=== PATIENT | female | born 1965 | race Caucasian/White ===

== ENCOUNTER → 2017-12-28 10:16 | Outpatient (CLI) | payer MEDICARE, MEDICAID, SELFPAY ==
[2017-12-28 11:48] LABS: Hemoglobin A1c 8.9 % (4.2-6.3)
[2017-12-28 11:52] LABS: AST(SGOT) 19 U/L (15-37); Alanine Aminotransfer ALT/SGPT 21 U/L (13-56); Albumin, Serum 3.7 g/dL (3.2-5.0); Alkaline Phosphatase 73 U/L (45-117); Bilirubin, Direct 0.13 mg/dL (0.00-0.30); Cholesterol 205 mg/dL (200); Globulin 3.8 g/dL (2.2-4.2); High Density Lipoprotein 48 mg/dL; Protein, Total 7.5 g/dL (6.4-8.2); Triglycerides 233 mg/dL; Very Low Density Lipoprotein 47 mg/dL (5-40)
== END ==
PROVIDERS: Family Provider Family Medicine; PCP Family Medicine; Visit Provider Family Medicine
DX: E78.5 Hyperlipidemia, unspecified (principal); E11.65 Type 2 diabetes mellitus with hyperglycemia
CPT/HCPCS: 36415; 80061; 80076; 83036

== ENCOUNTER 2018-02-24 10:00 | Emergency (ER) | payer MEDICARE, MEDICAID, SELFPAY ==
[2018-02-24 10:01] VITALS: BP 200/130; PULSE 90; RESP 16; TEMP 35.9; O2SAT 99; BMI 36.1
--- NOTE | 2018-02-24 10:26 | CT_ITS ---
STUDY: CT BRAIN WITHOUT CONTRAST REASON FOR EXAM: Female, 53 years old. MINER/HTN TODAY, NKI RADIATION DOSAGE (If Supplied By Facility): CTDIvol = ( 44.99 ) mGy, DLP = ( 745.49 ) mGycm TECHNIQUE: Transaxial CT imaging of the brain was performed without administration of intravenous contrast material. Individualized dose optimization techniques were used for this CT. COMPARISON: None. FINDINGS: Normal soft tissue structures. Normal calvarium. Normal size ventricles and extra-axial spaces for the patient's age. Normal white matter tracts of the cerebral hemispheres. Normal basal ganglia and thalami. Normal brainstem. Normal cerebellum. There is no intracranial hemorrhage. There are no findings of an acute ischemic infarction. Normal visualized paranasal sinuses. CT/Brain/Head without Contrast IMPRESSION: Normal unenhanced CT scan of the brain. Electronically Signed: Mari Stephenson MD at 11:55 EDT Tel , Service support ,
--- NOTE | 2018-02-24 10:26 | EKG12_ITS ---
Test Reason : HTN Blood Pressure : / mmHG Vent. Rate : 080 BPM Atrial Rate : 080 BPM P-R Int : 150 ms QRS Dur : 072 ms QT Int : 338 ms P-R-T Axes : 048 021 -74 degrees QTc Int : 389 ms Normal sinus rhythm T wave abnormality, consider inferolateral ischemia Abnormal ECG Confirmed by LEOANRD MARIA, SENG ([id number]), web editor STEVE JIMÉNEZ ([id number] on 02/26/2018 3:33:46 PM Referred By: ROSALIA Confirmed By:SENG VALLE MD
[2018-02-24 11:07] VITALS: BP 163/137; PULSE 84; RESP 16; O2SAT 98
[2018-02-24] MEDS: Acetaminophen 500 MG Tablet 1000 MG PO (11:13)
[2018-02-24 11:14] LABS: Absolute Lymphocyte Count 2.06 X10^3/ul (0.83-4.51); Absolute Neutrophil Count 4.1 X10^3/uL (2.0-7.7); Basophil# 0.02 X10^3/uL; Basophil% 0.3 % (0-1); Eosinophil# 0.12 X10^3/uL; Eosinophils% 1.8 % (0-5); Lymphocyte # 2.06 X10^3/ul (4.0); Lymphocyte % 30.9 % (19-41); Mean Corp Hgb Conc 33.3 g/gl (32-36); Mean Corpuscular Hgb 27.8 pg (27.0-32.0); Mean Corpuscular Volume 83.5 fL (81-99); Mean Platelet Vol. 9.5 fl (6.2-12.0); Monocyte# 0.35 X10^3/uL; Monocyte% 5.2 % (0-10); Neutrophil # 4.11 X10^3/uL (2.7-7.7); Neutrophil % 61.7 % (47-70); POSITIVE COUNT NO; POSITIVE DIFFERENTIAL NO; POSITIVE MORPHOLOGY NO; Platelet Count 179 K/mm3 (150-450); RBC Distribution Width CV 13.6 % (11.6-14.6); RBC Distribution Width SD 41.6 fl (35.1-43.9); Red Blood Count 5.03 M/mm3 (4.2-5.4); White Blood Count 6.7 K/mm3 (4.4-11.0)
[2018-02-24 11:17] LABS: Bacteria 0 SEEN /hpf (None Seen); Mucous, Urine 0 SEEN /hpf (<or=2+); Red Blood Cells-Urine 0 SEEN /hpf (0-5)
[2018-02-24 11:18] LABS: Color, Urine Yellow (Yellow); Glucose, Dipstick 1000 mg/dl (Normal); Ketone-Dipstick 5 mg/dl (Negative); Leukocyte Esterase-Dipstick 500 /ul (Negative); Nitrite-Dipstick Negative (Negative); Occult Blood-Urine 50 /ul (Negative); Protein-Dipstick 100 mg/dl (Negative); Specific Gravity, Urine 1.025 (1.002-1.030); Urine Bilirubin Dipstick Negative (Negative); Urine Clarity Sl. Cloudy (Clear); Urine Urobilinogen Normal (Normal)
[2018-02-24 11:23] LABS: Squamous Epithelial Cells - UA 10-25 SEEN /hpf (5-10)
[2018-02-24 11:23] LABS: Anion Gap 6 (5-15); BUN 16 mg/dL (7-18); BUN/Creat Ratio 17.5 RATIO (10-20); Calcium,Total 9.4 mg/dL (8.5-10.1); Chloride 102 mmol/L (98-107); Creatinine, Serum 0.91 mg/dL (0.55-1.02); EST Glomerular Filtration Rate 69 mL/min (>60); Est Glom Filt Rate - Afr Amer 83 mL/min (>60); Estimated Creatinine Clearance 52.53 ml/min; Glucose 265 mg/dL (74-106); Sodium Level 137 mmol/L (136-145)
[2018-02-24 11:24] LABS: White Blood Cells 10-25 SEEN /hpf (0-5)
--- NOTE | 2018-02-24 11:31 | NURSING ---
NO LW OR POA
--- NOTE | 2018-02-24 12:11 | NURSING ---
CALLED DR GANN'S OFFICE FOR MED LIST. HAD TO LEAVE A MESSAGE
[2018-02-24 12:21] VITALS: BP 185/102; PULSE 79; RESP 14; O2SAT 99
[2018-02-24] MEDS: Labetalol 100 MG/20 ML Vial 20 MG IV (12:25)
--- NOTE | 2018-02-24 12:56 | ED.DCSUM_ITS ---
- ER Visit Summary Date of Service: 02/24/18 Chief Complaint: High blood pressure and headache History of Present Illness: The patient is a [address] Wahl. She reports that typically her blood pressure is 130/80. States that today she took her typical doses of atenolol 100 mg, Norvasc 10 mg, lisinopril 20 mg, and Aldactone 25 mg. She went to the eye center and was found high had high blood pressure there. She was sent to the emergency department for evaluation. Patient reports that she has a headache that began this morning. Is gradually gotten worse. Is 6 out of 10 severity. A throbbing pain is increased with light and decreased with aspirin. She denies any numbness, tingling, or weakness. No change in her vision. Physical Examination: Vitals: Stable. Afebrile. General: Well-nourished and well-developed. Head: Normocephalic atraumatic. Neck: Supple, no lymphadenopathy. No JVD. Nontender. Cardiovascular: Regular rate and rhythm. No murmurs. Respiratory: No respiratory distress. Clear to auscultation bilaterally. Abdominal: Soft, nontender, nondistended, normal bowel sounds. No guarding, rebound, or peritoneal signs. Back: Nontender. Extremities: Nontender, no edema. Skin: Normal color, no rash. Neurologic: Alert and oriented ?3. Cranial nerves II through XII are intact. Normal strength and sensation. Psych: Normal affect. Test Results: CT brain is normal. EKG is sinus at 80 with T-wave inversions in leads V3 to V6. This is a change. However, her last EKG was in 2001. CBC is normal. Chem-7 is more for glucose 265. Urine has 10-25 whites, but also has 10-25 epithelial cells. It is positive for protein. Emergency Department Course and Treatment: Patient's initial blood pressure was 200/130. Repeat blood pressure is 204/113. She was given 20 mg of labetalol IV and her blood pressure is coming down into the 150s with that. Treatment Plan: Patient was discussed with Dr. Wahl. He asked that we increase her lisinopril from 20 mg to 30 mg a day. She was given extra 10 mg here. Instructed to follow-up with him in 1 week for another exam. Return to the emergency department for any worsening symptoms. Disposition: To home in improved and stable condition. Impression: 1. Hypertension. 2. Cephalgia. This note was generated with [employer] dictation software. It may contain incorrect words, spelling, and punctuation that were not noted in review of the chart prior to signing ED Disposition - Plan for ED Patient: Disposition: Home or Assisted Living Chief Complaint: Hypertension Instructions: ED Hypertension Conf Out Of Control Prescriptions: Lisinopril [Zestril] 30 mg PO DAILY #30 tablet Referrals: Jax Wahl MD [Primary Care Provider] - 1 Week
[2018-02-24 13:00] VITALS: BP 151/89; PULSE 78; RESP 14; O2SAT 97
[2018-02-24] MEDS: Ibuprofen 600 MG Tablet PO (13:32)
[2018-02-24] MEDS: Lisinopril 10 MG Tablet PO (13:32)
[2018-02-24 13:49] VITALS: BP 151/59; PULSE 78; RESP 18; O2SAT 96
== END 2018-02-24 13:49 | disposition home or self-care (01) ==
PROVIDERS: Emergency Provider Emergency Medicine; Family Provider Family Medicine; PCP Family Medicine
DX: I10 Essential (primary) hypertension (principal); R51 Headache; E11.9 Type 2 diabetes mellitus without complications; Z90.710 Acquired absence of both cervix and uterus; Z79.84 Long term (current) use of oral hypoglycemic drugs; Z79.4 Long term (current) use of insulin; Z79.899 Other long term (current) drug therapy
CPT/HCPCS: 70450; 80048; 81001; 85025; 93005; 96374; 99285; A4216

== ENCOUNTER → 2018-06-24 09:30 | Outpatient (CLI) | payer MEDICARE, MEDICAID, SELFPAY ==
[2018-06-24 12:16] LABS: Absolute Lymphocyte Count 2.21 X10^3/ul (0.83-4.51); Absolute Neutrophil Count 4.5 X10^3/uL (2.0-7.7); Basophil# 0.02 X10^3/uL; Basophil% 0.3 % (0-1); Eosinophil# 0.19 X10^3/uL; Eosinophils% 2.5 % (0-5); Hematocrit 42.8 % (37-47); Lymphocyte # 2.21 X10^3/ul (4.0); Lymphocyte % 28.8 % (19-41); Mean Corp Hgb Conc 32.7 g/gl (32-36); Mean Corpuscular Hgb 28.4 pg (27.0-32.0); Mean Corpuscular Volume 86.8 fL (81-99); Mean Platelet Vol. 10.3 fl (6.2-12.0); Monocyte# 0.73 X10^3/uL; Monocyte% 9.5 % (0-10); Neutrophil # 4.52 X10^3/uL (2.7-7.7); Neutrophil % 58.8 % (47-70); Platelet Count 287 K/mm3 (150-450); RBC Distribution Width CV 14.2 % (11.6-14.6); Red Blood Count 4.93 M/mm3 (4.2-5.4); White Blood Count 7.7 K/mm3 (4.4-11.0)
[2018-06-24 12:20] LABS: POSITIVE COUNT NO; POSITIVE DIFFERENTIAL NO; POSITIVE MORPHOLOGY NO
[2018-06-24 12:31] LABS: Color, Urine Yellow (Yellow); Glucose, Dipstick 1000 mg/dl (Normal); Ketone-Dipstick Negative (Negative); Leukocyte Esterase-Dipstick 100 /ul (Negative); Nitrite-Dipstick Negative (Negative); Occult Blood-Urine 10 /ul (Negative); Protein-Dipstick 15 mg/dl (Negative); Urine Bilirubin Dipstick Negative (Negative); Urine Clarity Clear (Clear); Urine Urobilinogen Normal (Normal)
[2018-06-24 12:37] LABS: Hemoglobin A1c 10.2 % (4.2-6.3)
[2018-06-24 12:44] LABS: Microalbumin,Random Urine 48.8 mg/L (NO RANGE EST.); Microalbumin:Creatinine Ratio 36.1 mg/g CRE (<30 mg/g CRE)
[2018-06-24 12:55] LABS: ALB/GLOB Ratio 0.9 RATIO (0.9-2.4); AST(SGOT) 16 U/L (15-37); Alanine Aminotransfer ALT/SGPT 26 U/L (13-56); Albumin, Serum 3.6 g/dL (3.2-5.0); Alkaline Phosphatase 62 U/L (45-117); Anion Gap 12 (5-15); BUN 20 mg/dL (7-18); BUN/Creat Ratio 20.4 RATIO (10-20); Calcium,Total 9.2 mg/dL (8.5-10.1); Chloride 103 mmol/L (98-107); Cholesterol 215 mg/dL (200); Creatinine, Serum 0.98 mg/dL (0.55-1.02); EST Glomerular Filtration Rate 64 mL/min (>60); Est Glom Filt Rate - Afr Amer 77 mL/min (>60); Globulin 3.8 g/dL (2.2-4.2); Glucose 162 mg/dL (74-106); High Density Lipoprotein 43 mg/dL; Protein, Total 7.4 g/dL (6.4-8.2); Sodium Level 141 mmol/L (136-145); Thyroid Stim Hormone (TSH) 0.97 uIU/mL (0.358-3.74); Triglycerides 285 mg/dL; Very Low Density Lipoprotein 57 mg/dL (5-40)
[2018-06-25 09:17] LABS: Vitamin B12 1466 pg/mL (211-911)
== END ==
PROVIDERS: Family Provider Family Medicine; PCP Family Medicine; Visit Provider Family Medicine
DX: Z00.00 Encounter for general adult medical examination without abnormal findings (principal); I10 Essential (primary) hypertension; E78.5 Hyperlipidemia, unspecified; E11.65 Type 2 diabetes mellitus with hyperglycemia; E03.9 Hypothyroidism, unspecified; E53.8 Deficiency of other specified B group vitamins
CPT/HCPCS: 36415; 80053; 80061; 81002; 82043; 82570; 82607; 83036; 84443; 85025

== ENCOUNTER 2018-07-05 10:00 | Outpatient (RCR) | payer MEDICARE, MEDICAID, SELFPAY ==
--- NOTE | 2018-06-07 10:02 | HP.PTEVAL ---
Patient's Visit Information ARCENIO LAND is a 53 year old F referred to Physical Therapy by ALEJANDRA Patel with a diagnosis of Bilateral Shoulder Pain. Date of Evaluation: 06/07/18 Physical Therapist: Talisha Figueredo - Visit Plan Frequency: 2x /Week Duration: 4 Weeks Plan: Focus on ROM and scap s/s for posture - Subjective Subjective: Bilateral shoulder pain for about a month- insidious onset. Tripped over a tree limb about a year ago- and the pain just keeps coming back. Right hand dominate. Both shoulders are the same. Works at [employer] so she is lifting to put thing away and working with her hands a lot. Lifts up to #25 lbs. 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 Pain is located in the shoulder blades- and the pain comes and goes. Best: 0/10 Eases: heat, ice hot patches, medication (Meloxicam). Agg: lifting arms overhead. Worst: 8/10 Pain radiates sometimes to the base of the skull. No N/T in her fingers. Has been having MINER more than normal- sometimes all through the day- the only way to get rid of it is to lay in a dark room- pain is located in the front of the forehead. Does report muscle spams in her back - which are new since the pain has started. No blurred vision or dizziness. Pain is sharp and brings tears to her eyes. Has not had injections- she wanted to do therapy first and see what happened. Last resort for patient is the injection. No images. Patient reports that sleep is disturbed both wakes her and its hard to get comfortable- mostly a side sleeper. Likes to square dance and walk for recreation. PMHx: DM, HTN, high cholesterol. Meds: Meloxicam, Insulin, thyroid, is unsure of the name of the HTN and cholesterol meds. - Objective Posture: poor- FH, RS, Increased kyphosis- very guarded and rigid in both sitting and standing- does not correct given verbal cueing or tactile cueing- reports significant pain and sharp shooting pain with sitting up tall. Gait: decreased trunk rotation and minimal arm swing. Palpation: signicantly tender with tears in her eyes with palpation along paraspinals from occiput to sacrum, medial border of the scapula, upper trap to the tip of the acromion and along the scapula infraspinatus. AROM: Seated: shoulder- flexion- 160 degrees, abduction- 150 degrees, IR: to bra line, ER: 40 degrees all with significant pain. Supine ROM: full in all directions. Elbow/wrist/hand: WNL. Strength: Scap: poor, Shoulder: 4-/5 with pain in all directions, Elbow: 4+/5, wrist/boating safety officer: WNL. Core: poor. Sensation: WNL in UE to light touch. Special Test: Empty can:positive. Impingement: positive - Goals Goal 1:: Patient will be I with HEP and progression Goal Time Frame: 4-6 Weeks Goal 2:: Patient will maintain proper posture t/o tx session to demo increased scap s/s Goal Time Frame: 4-6 Weeks Goal 3:: Patient will demo full AROM of bilateral shoulders to ease ADL's Goal Time Frame: 4-6 Weeks Goal 4:: Patient will report 2/10 pain for 1 week Goal Time Frame: 4-6 Weeks Goal 5:: Patinet will report no loss of sleep for 1 week Goal Time Frame: 4-6 Weeks - Rehabilitation Potential Physical Therapy Diagnosis: Patient presents with hypomobility- she has decreased ROM, strength and muscular endrance leading to poor posture and increased pain with ADL's Rehabilitation Potential: Fair - Anticipated Interventions Patient/Client Instruction: Educate patient on: Benefits of Fitness Program Therapeutic Exercise to Include: Strength training, Endurance training, Coordination, Agility training, Body mechanics, Postural training, Flexibilty training, Passive ROM, Active ROM, Scapular Strength/Stabilization For the Purpose of:: To improve muscle performance and motor function TENS: Yes Cryotherapy (ice pack, ice massage): Yes Thermo therapy (hot pack): Yes Ultrasound (thermal/non thermal): Yes Thank you for the opportunity to evaluate your patient. For Medicare and Medicare HMO plans, please review the plan of care and approve it. It will need to be FAXED BACK to us at [phone] for Medicare purposes. Please let me know if there are questions or concerns regarding this plan of care. Physician Signature: Date:
--- NOTE | 2018-07-05 10:23 | HP.PTDCSUM ---
HP - PT D/C Summary It has been my pleasure to treat ARCENIO LAND under orders from ALEJANDRA Patel, for the diagnosis of Bilateral Shoulder Pain for a total of 8 visit(s). Discharge Date: Please see the following information for a summary of their discharge status. - Subjective Subjective: Patient reports that she is doing pretty good since her massage. Every now and then she gets muscle spasms. 2/10 in the shoulder- comes and goes- sitting causes the spasms. Sleep is not disturbed. No limitations at work. Has another massage scheduled this month. - Pain Left Shoulder Pain Intensity (Out of 10): 4 - Overall Improvement % Improvement: 99 - Objective Objective/Function: Posture: rounded shoulders AROM: shoulder WNL. Cervical: flex., rotation bilat., lat. flex. WFL, limited ext. Strength: shoulder WNL. Neers: (+) slight pn. Bhakti Vargas (-). Palpation: not tender. - Goals Goal 1:: Patient will be I with HEP and progression Goal Progress: Goal Met Goal 2:: Patient will maintain proper posture t/o tx session to demo increased scap s/s Goal Progress: Progressing Goal 3:: Patient will demo full AROM of bilateral shoulders to ease ADL's Goal Progress: Goal Met Goal 4:: Patient will report 2/10 pain for 1 week Goal Progress: Goal Met Goal 5:: Patinet will report no loss of sleep for 1 week Goal Progress: Goal Met - Plan Plan: Discharge to [facility]. - D/C Information If there are questions or concerns regarding this patient's physical therapy, please feel free to call me at [phone]. Thank you for the referral of this patient. Sincerely, Talisha Figueredo
== END 2018-07-05 13:31 | disposition home or self-care (01) ==
LOC: PT 10:00
PROVIDERS: Family Provider Family Medicine; PCP Family Medicine; Visit Provider Physician Assistant
DX: Z00.00 Encounter for general adult medical examination without abnormal findings (principal); M25.512 Pain in left shoulder; M25.511 Pain in right shoulder; S46.812D Strain of other muscles, fascia and tendons at shoulder and upper arm level, left arm, subsequent encounter; I10 Essential (primary) hypertension; E78.5 Hyperlipidemia, unspecified; E11.65 Type 2 diabetes mellitus with hyperglycemia; E03.9 Hypothyroidism, unspecified; E53.8 Deficiency of other specified B group vitamins
CPT/HCPCS: 36415; 80053; 80061; 81002; 82043; 82570; 82607; 83036; 84443; 85025; 97110; 97162; 97164

== ENCOUNTER → 2018-08-23 08:57 | Outpatient (CLI) | payer MEDICARE, MEDICAID, SELFPAY ==
--- NOTE | 2018-08-23 09:35 | RAD_ITS ---
STUDY: X-RAY - THORACIC SPINE REASON FOR EXAM: Female, 53 years old. Back pain left shoulder pain after fall 2 years ago TECHNIQUE: 4 view(s) of the thoracic spine were obtained. COMPARISON: None. FINDINGS: Normal kyphosis of the thoracic spine. There is no substantial scoliosis. There is very minimal endplate spondylosis. There are multilevel degenerative disc narrowing. There is no evidence of acute fracture or loss of vertebral axial height. The soft tissue structures are unremarkable. RAD/Thoracic Spine 3 Views IMPRESSION: Degenerative changes of the thoracic spine without acute fracture or subluxation. Electronically Signed: Mike Patel DO at 21:15 EDT Tel [phone], Service support ,
[2018-08-23 09:54] LABS: Hemoglobin A1c 8.8 % (4.2-6.3)
[2018-08-23 09:58] LABS: Microalbumin,Random Urine 51.2 mg/L (NO RANGE EST.)
[2018-08-23 10:04] LABS: Cholesterol 202 mg/dL (200); High Density Lipoprotein 47 mg/dL; Triglycerides 247 mg/dL; Very Low Density Lipoprotein 49 mg/dL (5-40)
== END ==
PROVIDERS: Family Provider Family Medicine; PCP Family Medicine; Referring Provider Family Medicine; Visit Provider Family Medicine
DX: M54.6 Pain in thoracic spine (principal); G89.29 Other chronic pain; E11.649 Type 2 diabetes mellitus with hypoglycemia without coma
CPT/HCPCS: 36415; 72072; 80061; 82043; 82570; 83036

== ENCOUNTER → 2018-08-27 10:01 | Outpatient (CLI) | payer MEDICARE, MEDICAID, SELFPAY ==
--- NOTE | 2018-08-27 10:07 | BI_ITS ---
MAMMOGRAPHY - BILATERAL SCREENING REASON FOR EXAM: Female, 53 years old. Routine annual screening examination. PERTINENT HISTORY: Aunts with breast cancer. TECHNIQUE: Digital bilateral breast evangelina (3D mammographic acquisition) in the CC and MLO projections. 2-D mediolateral oblique (MLO) and craniocaudad (CC) views of both breasts were obtained. CAD: Full Field Digital Mammography with Computer Added Detection was performed. COMPARISON: Comparison is made with prior examination dated July 03, 2017 and June 20, 2016. FINDINGS: Breast Composition: There are scattered areas of fibroglandular density. There are no dominant masses or suspicious calcifications. No other significant abnormalities are identified. There has been no significant change since the prior study. BI/SCREENING MAMM (CAD), BILAT IMPRESSION: Stable bilateral screening mammogram. Yearly follow-up mammogram recommended. (A) ASSESSMENT CATEGORY: BIRADS Category 1: Negative. A letter regarding these results will be sent to the patient by the facility within 30 days. Approximately 10% of breast cancers are not detected by mammography. A normal mammogram should not delay biopsy of a clinically suspicious abnormality. [id number] Electronically Signed: Chidi White MD at 13:30 EDT Tel [phone], Service support ,
== END ==
PROVIDERS: Family Provider Family Medicine; PCP Family Medicine; Referring Provider Family Medicine; Visit Provider Family Medicine
DX: Z12.31 Encounter for screening mammogram for malignant neoplasm of breast (principal)
CPT/HCPCS: 77063; 77067

== ENCOUNTER 2018-08-30 19:33 | Emergency (ER) | payer MEDICARE, MEDICAID, SELFPAY ==
[2018-08-30 19:34] VITALS: BP 187/110; PULSE 114; RESP 24; TEMP 36.1; BMI 35.2
--- NOTE | 2018-08-30 19:47 | RAD_ITS ---
STUDY: X-RAY - LEFT KNEE REASON FOR EXAM: Female, 53 years old. Posttraumatic pain TECHNIQUE: 3 view(s) of the knee. COMPARISON: None. FINDINGS: Normal visualized distal femur. Normal visualized proximal tibia and fibula. Normal proximal tibiofibular articulation. Mildly narrowed medial femorotibial compartment. Normal lateral femorotibial compartment. Normal patellofemoral articulation. The soft tissue structures are unremarkable. RAD/Knee 3 Views IMPRESSION: Degenerative change. No evidence for acute fracture. Electronically Signed: Augustine Francis MD at 20:49 EST , Service support ,
--- NOTE | 2018-08-30 19:47 | RAD_ITS ---
STUDY: X-RAY - LEFT HAND REASON FOR EXAM: Female, 53 years old. Posttraumatic pain TECHNIQUE: 3 view(s) of the hand. COMPARISON: None. FINDINGS: Normal radiocarpal articulation. Normal distal radioulnar joint. Normal visualized carpal bones. Normal carpal articulations Normal carpometacarpal articulation of the thumb. Normal second through fifth carpometacarpal joints. Normal metacarpi. Normal metacarpophalangeal joint of the thumb. Normal interphalangeal joint of the thumb. Normal proximal and distal phalanges of the thumb. Normal metacarpophalangeal joints of the second through fifth fingers. Normal proximal and distal interphalangeal joints of the second through fifth fingers. Normal phalanges of the second through fifth fingers. The soft tissue structures are unremarkable. RAD/Hand Min 3 Views IMPRESSION: Normal x-ray examination of the hand. Electronically Signed: Augustine Francis MD at 20:43 EST , Service support ,
--- NOTE | 2018-08-30 21:56 | ED.VISSUMM ---
- ER Visit Summary Date of Service: 08/30/18 Chief Complaint: Left knee and hand injury History of Present Illness: The patient is a 53 F who fell onto a flexed left knee while she was square dancing tonight. She also has pain to her left hand. Patient has history of diabetes and hypertension. Physical Examination: Blood pressure arrival is 187/110 and heart rate 114. Patient sitting upright in bed no acute distress. Head and neck examination reveals no sign of trauma. Heart is regular rate and rhythm. Lungs sounds clear. Abdomen is soft nontender. Lower extremity examination reveals tenderness over the anterior portion of the left knee. There is no edema. Ligaments are tight on testing. She is able to straight leg raise her foot off the bed. She has mild tenderness at the base of the left thumb with normal range of motion. Strong distal pulses are noted throughout. Test Results: Left knee x-ray reveals no acute fracture. Left hand x-ray is normal. Emergency Department Course and Treatment: Patient is given a dose of oxycodone. Tomy wrap was applied to the left knee and patient is given crutches. She may weight-bear as tolerated. Repeat blood pressure is 167/93. Patient is advised to follow-up with her primary care physician and/or orthopedics. Treatment Plan: [] Disposition: Discharge Impression: 1. Mechanical fall 2. Left knee contusion 3. Left hand contusion This note was generated with [employer] dictation software. It may contain incorrect words, spelling, and punctuation that were not noted in review of the chart prior to signing ED Disposition - Plan for ED Patient: Disposition: Home or Assisted Living Chief Complaint: Lower Extremity Injury Instructions: ED Sprain Knee Prescriptions: Oxycodone HCl/Acetaminophen [Percocet 5/325] 1 tablet PO Q6H PRN PRN 3 Days #12 tablet PRN Reason: Pain Referrals: Braulio Mendoza MD [STAFF PHYSICIAN] - 1 Week if not improving Ranjeet Shine MD [Primary Care Provider] -
--- NOTE | 2018-08-30 21:56 | ED.DEP ---
ED Disposition - Plan for ED Patient: Disposition: Home or Assisted Living Chief Complaint: Lower Extremity Injury Instructions: ED Sprain Knee Prescriptions: Oxycodone HCl/Acetaminophen [Percocet 5/325] 1 tablet PO Q6H PRN PRN 3 Days #12 tablet PRN Reason: Pain Referrals: Ranjeet Shine MD [Primary Care Provider] - Braulio Mendoza MD [STAFF PHYSICIAN] - 1 Week if not improving
[2018-08-30] MEDS: oxyCODONE 5 MG Tablet PO (22:08)
[2018-08-30 22:11] VITALS: BP 167/93; PULSE 94; RESP 16; O2SAT 98
== END 2018-08-30 22:18 | disposition home or self-care (01) ==
PROVIDERS: Emergency Provider Emergency Medicine; Family Provider Family Medicine; PCP Family Medicine
DX: S60.222A Contusion of left hand, initial encounter (principal); S80.02XA Contusion of left knee, initial encounter; W19.XXXA Unspecified fall, initial encounter; Y93.41 Activity, dancing; Y92.9 Unspecified place or not applicable; E11.9 Type 2 diabetes mellitus without complications; I10 Essential (primary) hypertension; Z79.84 Long term (current) use of oral hypoglycemic drugs; Z79.4 Long term (current) use of insulin; Z79.899 Other long term (current) drug therapy
CPT/HCPCS: 73130; 73562; 99284

== ENCOUNTER 2018-11-27 18:02 | Emergency (ER) | payer MEDICARE, MEDICAID, SELFPAY ==
[2018-11-27 18:04] VITALS: BP 153/91; PULSE 78; RESP 16; TEMP 36.3; O2SAT 97; BMI 34.0
[2018-11-27 18:36] VITALS: TEMP 36.9
[2018-11-27] MEDS: HYDROcodone Bitartrate/Apap 5/325 Tablet PO (18:58)
[2018-11-27] MEDS: Clindamycin HCl 150 MG Capsule 450 MG PO (18:59)
[2018-11-27] MEDS: Diphth,Pertuss(Acell),Tet Vac 0.5 ML Vial IM (18:59)
--- NOTE | 2018-11-27 20:19 | ED.VISSUMM ---
- ER Visit Summary Date of Service: 11/27/18 Chief Complaint: Right forearm burn/cellulitis History of Present Illness: The patient is a 53 F presenting with redness to right forearm. Patient states she spilled bleach/cleaning solution on her arm yesterday. She initially stated this was at work but then later said that this was after work and was not work related. She irrigated the wound at home. She had blisters which broke on their own. Last tetanus is unknown. Denies other complaints. Physical Examination: Vitals are stable. Patient is afebrile. Alert no acute distress. HEENT exam is unremarkable. Neck is supple. Lungs are clear and equal bilaterally. Heart is regular rate and rhythm. Extremities erythema to the dorsal forearm which is not circumferential. Small blisters. Normal distal pulse. Skin is warm and dry. No focal neurologic deficit. Normal strength and sensation Remainder of exam is unremarkable. Emergency Department Course and Treatment: Wound was irrigated. She was given tetanus IM. She was given Logan x1. She is given clindamycin. Advised to follow-up with primary care physician for wound recheck. Advised return to ED if worsening complaints. Disposition: Discharge home Impression: Right forearm chemical burn/cellulitis This note was generated with [employer] in [place] dictation software. It may contain incorrect words, spelling, and punctuation that were not noted in review of the chart prior to signing ED Disposition - Plan for ED Patient: Instructions: ED Infec Skin Cellulitis Prescriptions: Clindamycin [Cleocin] 300 mg PO 4X/DAY #80 capsule Referrals: [facility] [GROUP OF PHYSICIANS] - Ranjeet Shine MD [Primary Care Provider] -
--- NOTE | 2018-11-27 20:22 | ED.DEP ---
ED Disposition - Plan for ED Patient: Instructions: ED Infec Skin Cellulitis Prescriptions: Clindamycin [Cleocin] 300 mg PO 4X/DAY #80 capsule Referrals: Ranjeet Shine MD [Primary Care Provider] -
== END 2018-11-27 20:29 | disposition home or self-care (01) ==
PROVIDERS: Emergency Provider Emergency Medicine; Family Provider Family Medicine; PCP Family Medicine
DX: T54.91XA Toxic effect of unspecified corrosive substance, accidental (unintentional), initial encounter (principal); T22.611A Corrosion of second degree of right forearm, initial encounter; L03.113 Cellulitis of right upper limb; Y93.9 Activity, unspecified; Y92.9 Unspecified place or not applicable; E11.9 Type 2 diabetes mellitus without complications; I10 Essential (primary) hypertension; E78.00 Pure hypercholesterolemia, unspecified; Z79.84 Long term (current) use of oral hypoglycemic drugs; Z79.4 Long term (current) use of insulin; Z79.899 Other long term (current) drug therapy
CPT/HCPCS: 90715; 99283

== ENCOUNTER 2019-02-17 16:31 | Observation (INO) | payer MEDICARE, MEDICAID, SELFPAY ==
[2019-02-17] VITALS (7 sets, daily range): BP systolic 115–195; BP diastolic 56–101; PULSE 56–66; RESP 11–18; TEMP 36.4–36.6; O2SAT 99–100; BMI 37.8; BMI 36.3; BMI 36.4
--- NOTE | 2019-02-17 16:43 | EKG12_ITS ---
Test Reason : CP Blood Pressure : / mmHG Vent. Rate : 060 BPM Atrial Rate : 060 BPM P-R Int : 144 ms QRS Dur : 066 ms QT Int : 448 ms P-R-T Axes : 048 022 054 degrees QTc Int : 448 ms Normal sinus rhythm Normal ECG Confirmed by CJ MARIA, ROYA ([id number]), digital editor ALEXIS HAWK ([id number]) on 02/21/2019 11:29:23 AM Referred By: Ambreen Gómez Confirmed By:ROYA CORONA MD
--- NOTE | 2019-02-17 16:43 | RAD_ITS ---
STUDY: X-RAY CHEST REASON FOR EXAM: Female, 54 years old. Chest pain x2 days TECHNIQUE: Single AP portable view of the chest. COMPARISON: None. FINDINGS: laboratory monitor leads are present. The lungs are clear and expanded. There is no demonstrated pleural abnormality. Normal size heart. Normal mediastinum and skinny. Normal visualized pulmonary arteries. There are calcified plaques of the aortic arch. There are diffuse degenerative changes of the visualized thoracic spine. Normal visualized ribs, clavicles, and shoulders. There is no demonstrated abnormality of the visualized soft tissue structures of the upper abdomen. RAD/Chest 1 View (Portable) IMPRESSION: Calcified plaques of the aortic arch. No acute cardiopulmonary disease process is seen. Electronically Signed: Mio Bonner MD at 17:04 EDT , Service support ,
--- NOTE | 2019-02-17 16:44 | ED.VISSUMM ---
- ER Visit Summary Date of Service: 02/17/19 Chief Complaint: [] Burning chest pain today 3:00 History of Present Illness: The patient is a 54 F [] history of hypertension diabetes indicates she was at her doctor's office for routine health visit, development of burning chest discomfort she was given some medication she says, then in the ambulance was called, she was given aspirin nitroglycerin she is brought to the emergency department the pain that was about a 7 out of 10, she states the pain is worse when she actually sits forward or moves her torso, she has no headache no numbness weakness paresthesias no abdominal pain, She has no history of AR PE DVT CAD, or GI elements she is eating and drinking well bowel bladder is have been normal her review of systems otherwise negative Physical Examination: [] 140/92 afebrile the remaining vital signs are unremarkable General, no distress resting comfortably HEENT is generally unremarkable The neck is supple no adenopathy Cardiovascular, regular rate and rhythm Lungs, clear bilateral Abdomen, soft nontender Extremities, no clubbing cyanosis or edema Neurologic, awake alert answering questions appropriately moving all 4 extremities Test Results: [] Emergency Department Course and Treatment: [] Given all the above she will be treated with medications IV fluids pain management screening labs EKG shows a sinus rhythm no acute injury pattern appreciated, her screening labs troponin are negative chest x-ray unremarkable see all those reports Is feeling better given her history, that includes diabetes hypertension high cholesterol and the chest pressure she experienced about the hospital see her further management admission Treatment Plan: [] Disposition: [] Pending hospice evaluation Impression: [] Chest pain angina, history of hypertension diabetes high cholesterol This note was generated with [employer] dictation software. It may contain incorrect words, spelling, and punctuation that were not noted in review of the chart prior to signing ED Disposition - Plan for ED Patient: Referrals: Jax Wahl MD [NON-STAFF] -
[2019-02-17] MEDS: 0.9% Normal Saline 1,000 ML 150 ML IV (16:54)
[2019-02-17] MEDS: Mag Hydrox/Al Hydrox/Simeth 30 ML UDC PO (16:54)
[2019-02-17] MEDS: Ondansetron 4 MG/2 ML Vial IV (16:54)
[2019-02-17] MEDS: morphine 8 MG/ML Syringe IV (17:00)
[2019-02-17 17:28] LABS: Absolute Lymphocyte Count 2.96 X10^3/ul (0.83-4.51); Absolute Neutrophil Count 6.7 X10^3/uL (2.0-7.7); Basophil# 0.02 X10^3/uL; Basophil% 0.2 % (0-1); Eosinophil# 0.27 X10^3/uL; Eosinophils% 2.4 % (0-5); Hematocrit 43.1 % (37-47); Hemoglobin 14.3 g/dl (12.0-15.0); Lymphocyte # 2.96 X10^3/ul (4.0); Lymphocyte % 26.8 % (19-41); Mean Corp Hgb Conc 33.2 g/gl (32-36); Mean Corpuscular Hgb 28.1 pg (27.0-32.0); Mean Corpuscular Volume 84.7 fL (81-99); Mean Platelet Vol. 10.1 fl (6.2-12.0); Monocyte# 1.03 X10^3/uL; Monocyte% 9.3 % (0-10); Neutrophil # 6.73 X10^3/uL (2.7-7.7); Neutrophil % 60.8 % (47-70); Platelet Count 338 K/mm3 (150-450); RBC Distribution Width CV 14.5 % (11.6-14.6); RBC Distribution Width SD 43.4 fl (35.1-43.9); Red Blood Count 5.09 M/mm3 (4.2-5.4); White Blood Count 11.1 K/mm3 (4.4-11.0)
[2019-02-17 17:29] LABS: POSITIVE COUNT NO; POSITIVE DIFFERENTIAL NO; POSITIVE MORPHOLOGY NO
[2019-02-17 17:30] LABS: Anion Gap 7 (5-15); BUN 21 mg/dL (7-18); BUN/Creat Ratio 23.3 RATIO (10-20); Chloride 105 mmol/L (98-107); EST Glomerular Filtration Rate 70 mL/min (>60); Est Glom Filt Rate - Afr Amer 85 mL/min (>60); Estimated Creatinine Clearance 52.52 ml/min; Glucose 135 mg/dL (74-106); Potassium 4.3 mmol/L (3.5-5.1); Sodium Level 139 mmol/L (136-145)
[2019-02-17 18:00] LABS: BNP,B-Type NATRIURETIC PEPTIDE 46.6 pg/mL (0-100)
--- NOTE | 2019-02-17 18:37 | PCM.HP.STD ---
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 Diabetes mellitus complication status: with unspecified complications Qualified Code(s): E11.8 - Type 2 diabetes mellitus with unspecified complications; Z79.4 - 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) use of insulin (5) Anxiety and depression Status: Chronic (6) Obesity Status: Chronic Qualifiers: Obesity type: due to excess calories Obesity classification: adult class 2 (BMI 35 - 39.9) (7) Hypothyroidism Status: Chronic Qualifiers: Hypothyroidism type: unspecified Qualified Code(s): E03.9 - Hypothyroidism, unspecified (8) Former tobacco use Status: Chronic History of Present Illness Date of Admission: 02/17/19 Chief Complaint: Chest pain The patient is a 54 y/o F w/ PMHx: Obesity, HTN, HLD, Diabetes mellitus type II, Anxiety and Depression, OA, Hypothyroidism, Former Tobacco use who presents to the [facility] ED on 02/17/19 with history of being at her PCP office for routine evaluation with onset of atypical midsternal chest burning sensation without any radiation with associated diaphoresis at onset without nausea, emesis or dyspnea rated initially 7/10, improved following EMS administration of ASA, NG with transition from PCP office to ED for evaluation. Work-up in the ED included T 97.6, heart rate 56, BP 141/92, respiratory rate 12, 99% on room air, CBC with WBC 11.1, hemoglobin 14.3, platelets 338 without shift, BMP with glucose 135 and BUN 21 with creatinine 0.90 otherwise unremarkable, BNP 46.6, troponin less than 0.015, chest x-ray with calcified plaques of the aortic arch with no acute cardiopulmonary findings otherwise, EKG with SR without acute evidence of ischemia. In the ED patient administered normal saline, Mylanta, aspirin, viscous lidocaine, morphine, multi-ingredient GI drug, Zofran. Past Medical History Past Medical History (Chronic Problems): Chronic Problems HTN (hypertension) (Chronic) HLD (hyperlipidemia) (Chronic) Diabetes mellitus, type II (Chronic) Anxiety and depression (Chronic) Obesity (Chronic) Hypothyroidism (Chronic) Former tobacco use (Chronic) Allergies Penicillins Allergy (Verified 02/17/19 17:01) Rash Sulfa (Sulfonamide Antibiotics) Adverse Reaction (Verified 02/17/19 17:01) Nausea/Vom/Diarrhea Home Medications: Ambulatory Orders Medication Instructions Recorded Atenolol [Tenormin (Beta Aby)] 100 mg PO DAILY 02/24/18 Atorvastatin Calcium [Lipitor] 20 mg PO QHS 02/24/18 Cyanocobalamin [Vitamin B12] 1,000 mcg SC Q30D 02/24/18 Duloxetine Hcl [Cymbalta] 60 mg PO DAILY 02/24/18 Empagliflozin [Jardiance] 10 mg PO DAILY 02/24/18 Estradiol [Estrace] 1 mg PO DAILY 02/24/18 Levothyroxine [Synthroid] 125 mcg PO DAILY 02/24/18 Lisinopril [Zestril] 20 mg PO DAILY 02/24/18 Meloxicam [Mobic] 15 mg PO DAILY 02/24/18 Metformin HCl [Glucophage] 1,000 mg PO BIDCM 02/24/18 Pioglitazone [Actos] 45 mg PO DAILY 02/24/18 Sitagliptin Phosphate [Januvia] 100 mg PO DAILY 02/24/18 Spironolactone [Aldactone] 25 mg PO DAILY 02/24/18 Insulin Glargine [Lantus SoloStar 34 unit SQ DAILY 11/27/18 Pen] Surgical History: - - Hysterectomy, cataract surgery. 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 Tobacco Use: Non-smoker Alcohol: None Drugs: None - *Family History Maternal History Items: - - Patient notes a maternal and paternal family history of hypertension, hyperlipidemia, diabetes. Paternal History Items: - - Patient notes a maternal and paternal family history of hypertension, hyperlipidemia, diabetes. Review of Systems Constitutional: Reports: Malaise, Weakness, Fatigue. Denies: Chills, Fever, Weight Change HEENT: Denies: Head Aches, Sinus Congestion, Sinus Drainage Cardiovascular: Reports: Chest Pain. Denies: Chest Pressure, Chest Tightness, Heaviness, Light Headedness, Orthopnea, Palpitations, Syncope Respiratory: Denies: Cough, Shortness of Breath, Shortness of breath at rest, Shortness of breath upon exertion, Sputum production Gastrointestinal: Denies: Abdominal Pain, Nausea, Vomiting Genitourinary: Denies: Dysuria Musculoskeletal: Denies: Joint Pain, Joint Tenderness Skin: Denies: Rash, Wounds Neurological: Denies: Numbness, Tingling, Focal weakness Psychiatric: Reports: Anxiety, Depression. Denies: Homicidal Ideations, Suicidal Ideations Endocrine: Reports: Heat/ Cold Intolerance Hematologic/ Lymphatic: Denies: Easy Bruising, Easy Bleeding VTE Information - Inpt Only VTE Present on Admission: No VTE Mechan Device Prophylaxis: SCD's VTE Pharm Prophylaxis ordered?: Yes Patient Problems: Active and Suspected Problems Chest pain (Acute) Subjective: Seated upright in the ED bed, notes chest discomfort, burning sensation has been improving since myriad of GI cocktail components. Objective: Physical Examination: General: awake, alert, oriented x 3 and cooperative, seated upright in the ED bed, notes chest discomfort has been improving, currently rating it is 1-2 out of 10. Skin: normal color, turgor, no icterus, cyanosis. HEENT: AT/NC, EOMI, PERRLA, mildly dry MM, no carotid bruits or JVD noted. Lungs: CTA bilaterally, moderate effort, mild decrease BL bases, no rales, ronchi or wheezing. Heart: Regular rate and rhythm; no gallop, rub audible, no market reproducible discomfort with palpation. Abdomen: soft, NTTP, ND, normal BS, no HSM. Extremities: no cyanosis, clubbing, or edema. Neurological: patient awake, alert, oriented x 3; cognitive function intact; pupils equally reactive to light and accomodation; cranial nerves II-XII grossly normal, moving all 4 extremities, no focal deficits, strength mildly to moderately globally decreased secondary to acute presentation. Psychiatric: affect appears flat, no acute evidence of depressive or anxiety feelings. - Physical Exam Vital Signs Temp Pulse Resp BP Pulse Ox 97.6 F L 56 L 11 L 141/92 H 99 02/17/19 16:32 02/17/19 16:32 02/17/19 16:32 02/17/19 16:32 02/17/19 16:32 Oxygen Delivery Method Room Air Weight: 193 lb 9.054 oz Body Mass Index (BMI) 37.8 Laboratory Tests Past 24 Hrs 02/17/19 02/17/19 02/17/19 17:05 17:05 17:05 WBC 11.1 H RBC 5.09 Hgb 14.3 Hct 43.1 MCV 84.7 MCH 28.1 MCHC 33.2 RDW 14.5 RDW Differential 43.4 Plt Count 338 MPV 10.1 Immature Gran % (Auto) 0.500 Neut % (Auto) 60.8 Lymph % (Auto) 26.8 Sac % (Auto) 9.3 Eos % (Auto) 2.4 Baso % (Auto) 0.2 Absolute Neuts (auto) 6.7 Absolute Lymphs (auto) 2.96 Total Counted Not Reportable Sodium 139 Potassium 4.3 Chloride 105 Carbon Dioxide 27.0 Anion Gap 7 BUN 21 H Creatinine 0.90 Estim Creat Clear Calc 52.52 Est GFR (MDRD) Af Amer 85 Est GFR (MDRD) Non-Af 70 BUN/Creatinine Ratio 23.3 H Glucose 135 H Calcium 9.0 Troponin I < 0.015 B-Natriuretic Peptide 46.6 Assessment/Plan All Active Problems Chest pain (Acute) The patient is a 54 y/o F w/ PMHx: Obesity, HTN, HLD, Diabetes mellitus type II, Anxiety and Depression, OA, Hypothyroidism, Former Tobacco use who presents to the [facility] ED on 02/17/19 with history of being at her PCP office for routine evaluation with onset of atypical midsternal chest burning sensation without any radiation with associated diaphoresis at onset without nausea, emesis or dyspnea rated initially 7/10. (1) Atypical Chest Pain: Work-up in the ED included T 97.6, heart rate 56, BP 141/92, respiratory rate 12, 99% on room air, CBC with WBC 11.1, hemoglobin 14.3, platelets 338 without shift, BMP with glucose 135 and BUN 21 with creatinine 0.90 otherwise unremarkable, BNP 46.6, troponin less than 0.015, chest x-ray with calcified plaques of the aortic arch with no acute cardiopulmonary findings otherwise, EKG with SR without acute evidence of ischemia. Will admit to PCU, place on a monitored bed to assure no acute myocardial infarction with serial cardiac enzymes and EKGs. If cardiac enzymes and EKGs remain unremarkable we will proceed with a.m. cardiac nuclear treadmill stress testing. CRP requested given patient positional discomfort changes and if elevated would obtain ECHO. ASA, NG, morphine. FLP in AM. Mag pending. Lipase and liver enzyme requested also as well as UDS. If lipase elevated then would de-escalate cardiac evaluation. (2) Diabetes mellitus type II: Hold oral home regimen, continue home insulin regimen, ADA diet, accu checks w/ ISS, nutrition consulted for education and teaching. (3) Hypertension: Continue home regimen including atenolol, lisinopril, spironolactone, PRN hydralazine. (4) Hyperlipidemia: Continue home statin regimen. AM FLP. (5) Anxiety and depression: Continue home Cymbalta regimen. (6) Hypothyroidism: Continue home synthroid regimen, TSH pending. (7) Obesity: Weight loss and lifestyle changes encouraged, nutrition consulted for education and teaching. (8) Hx Prior Tobacco Abuse: Encouraged continued cessation. (9) GERD: PPI. (10) DVT Prophylaxis: SCDs, lovenox. Code Visit OBSV E&M: 13523 Initial observation care L3
--- NOTE | 2019-02-17 18:45 | HP.PCM_ITS ---
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 Diabetes mellitus complication status: with unspecified complications Qualified Code(s): E11.8 - Type 2 diabetes mellitus with unspecified complications; Z79.4 - long term care administrator (current) use of insulin (5) Anxiety and depression Status: Chronic (6) Obesity Status: Chronic Qualifiers: Obesity type: due to excess calories Obesity classification: adult class 2 (BMI 35 - 39.9) (7) Hypothyroidism Status: Chronic Qualifiers: Hypothyroidism type: unspecified Qualified Code(s): E03.9 - Hypothyroidism, unspecified (8) Former tobacco use Status: Chronic History of Present Illness Date of Admission: 02/17/19 Chief Complaint: Chest pain The patient is a 54 y/o F w/ PMHx: Obesity, HTN, HLD, Diabetes mellitus type II, Anxiety and Depression, OA, Hypothyroidism, Former Tobacco use who presents to the [facility] ED on 02/17/19 with history of being at her PCP office for routine evaluation with onset of atypical midsternal chest burning sensation without any radiation with associated diaphoresis at onset without nausea, emesis or dyspnea rated initially 7/10, improved following EMS administration of ASA, NG with transition from PCP office to ED for evaluation. Work-up in the ED included T 97.6, heart rate 56, BP 141/92, respiratory rate 12, 99% on room air, CBC with WBC 11.1, hemoglobin 14.3, platelets 338 without shift, BMP with glucose 135 and BUN 21 with creatinine 0.90 otherwise unremarkable, BNP 46.6, troponin less than 0.015, chest x-ray with calcified plaques of the aortic arch with no acute cardiopulmonary findings otherwise, EKG with SR without acute evidence of ischemia. In the ED patient administered normal saline, Mylanta, aspirin, viscous lidocaine, morphine, multi-ingredient GI drug, Zofran. Past Medical History Past Medical History (Chronic Problems): Chronic Problems HTN (hypertension) (Chronic) HLD (hyperlipidemia) (Chronic) Diabetes mellitus, type II (Chronic) Anxiety and depression (Chronic) Obesity (Chronic) Hypothyroidism (Chronic) Former tobacco use (Chronic) Allergies Penicillins Allergy (Verified 02/17/19 17:01) Rash Sulfa (Sulfonamide Antibiotics) Adverse Reaction (Verified 02/17/19 17:01) Nausea/Vom/Diarrhea Home Medications: Ambulatory Orders Medication Instructions Recorded Atenolol [Tenormin (Beta Aby)] 100 mg PO DAILY 02/24/18 Atorvastatin Calcium [Lipitor] 20 mg PO QHS 02/24/18 Cyanocobalamin [Vitamin B12] 1,000 mcg SC Q30D 02/24/18 Duloxetine Hcl [Cymbalta] 60 mg PO DAILY 02/24/18 Empagliflozin [Jardiance] 10 mg PO DAILY 02/24/18 Estradiol [Estrace] 1 mg PO DAILY 02/24/18 Levothyroxine [Synthroid] 125 mcg PO DAILY 02/24/18 Lisinopril [Zestril] 20 mg PO DAILY 02/24/18 Meloxicam [Mobic] 15 mg PO DAILY 02/24/18 Metformin HCl [Glucophage] 1,000 mg PO BIDCM 02/24/18 Pioglitazone [Actos] 45 mg PO DAILY 02/24/18 Sitagliptin Phosphate [Januvia] 100 mg PO DAILY 02/24/18 Spironolactone [Aldactone] 25 mg PO DAILY 02/24/18 Insulin Glargine [Lantus SoloStar 34 unit SQ DAILY 11/27/18 Pen] Surgical History: - - Hysterectomy, cataract surgery. 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 Tobacco Use: Non-smoker Alcohol: None Drugs: None - *Family History Maternal History Items: - - Patient notes a maternal and paternal family history of hypertension, hyperlipidemia, diabetes. Paternal History Items: - - Patient notes a maternal and paternal family history of hypertension, hyperlipidemia, diabetes. Review of Systems Constitutional: Reports: Malaise, Weakness, Fatigue. Denies: Chills, Fever, Weight Change HEENT: Denies: Head Aches, Sinus Congestion, Sinus Drainage Cardiovascular: Reports: Chest Pain. Denies: Chest Pressure, Chest Tightness, Heaviness, Light Headedness, Orthopnea, Palpitations, Syncope Respiratory: Denies: Cough, Shortness of Breath, Shortness of breath at rest, Shortness of breath upon exertion, Sputum production Gastrointestinal: Denies: Abdominal Pain, Nausea, Vomiting Genitourinary: Denies: Dysuria Musculoskeletal: Denies: Joint Pain, Joint Tenderness Skin: Denies: Rash, Wounds Neurological: Denies: Numbness, Tingling, Focal weakness Psychiatric: Reports: Anxiety, Depression. Denies: Homicidal Ideations, Suicidal Ideations Endocrine: Reports: Heat/ Cold Intolerance Hematologic/ Lymphatic: Denies: Easy Bruising, Easy Bleeding VTE Information - Inpt Only VTE Present on Admission: No VTE Mechan Device Prophylaxis: SCD's VTE Pharm Prophylaxis ordered?: Yes Patient Problems: Active and Suspected Problems Chest pain (Acute) Subjective: Seated upright in the ED bed, notes chest discomfort, burning sensation has been improving since myriad of GI cocktail components. Objective: Physical Examination: General: awake, alert, oriented x 3 and cooperative, seated upright in the ED bed, notes chest discomfort has been improving, currently rating it is 1-2 out of 10. Skin: normal color, turgor, no icterus, cyanosis. HEENT: AT/NC, EOMI, PERRLA, mildly dry MM, no carotid bruits or JVD noted. Lungs: CTA bilaterally, moderate effort, mild decrease BL bases, no rales, ronchi or wheezing. Heart: Regular rate and rhythm; no gallop, rub audible, no market reproducible discomfort with palpation. Abdomen: soft, NTTP, ND, normal BS, no HSM. Extremities: no cyanosis, clubbing, or edema. Neurological: patient awake, alert, oriented x 3; cognitive function intact; pupils equally reactive to light and accomodation; cranial nerves II-XII grossly normal, moving all 4 extremities, no focal deficits, strength mildly to moderately globally decreased secondary to acute presentation. Psychiatric: affect appears flat, no acute evidence of depressive or anxiety feelings. - Physical Exam Vital Signs Temp Pulse Resp BP Pulse Ox 97.6 F L 56 L 11 L 141/92 H 99 02/17/19 16:32 02/17/19 16:32 02/17/19 16:32 02/17/19 16:32 02/17/19 16:32 Oxygen Delivery Method Room Air Weight: 193 lb 9.054 oz Body Mass Index (BMI) 37.8 Laboratory Tests Past 24 Hrs 02/17/19 02/17/19 02/17/19 17:05 17:05 17:05 WBC 11.1 H RBC 5.09 Hgb 14.3 Hct 43.1 MCV 84.7 MCH 28.1 MCHC 33.2 RDW 14.5 RDW Differential 43.4 Plt Count 338 MPV 10.1 Immature Gran % (Auto) 0.500 Neut % (Auto) 60.8 Lymph % (Auto) 26.8 Mora % (Auto) 9.3 Eos % (Auto) 2.4 Baso % (Auto) 0.2 Absolute Neuts (auto) 6.7 Absolute Lymphs (auto) 2.96 Total Counted Not Reportable Sodium 139 Potassium 4.3 Chloride 105 Carbon Dioxide 27.0 Anion Gap 7 BUN 21 H Creatinine 0.90 Estim Creat Clear Calc 52.52 Est GFR (MDRD) Af Amer 85 Est GFR (MDRD) Non-Af 70 BUN/Creatinine Ratio 23.3 H Glucose 135 H Calcium 9.0 Troponin I < 0.015 B-Natriuretic Peptide 46.6 Assessment/Plan All Active Problems Chest pain (Acute) The patient is a 54 y/o F w/ PMHx: Obesity, HTN, HLD, Diabetes mellitus type II, Anxiety and Depression, OA, Hypothyroidism, Former Tobacco use who presents to the [facility] ED on 02/17/19 with history of being at her PCP office for routine evaluation with onset of atypical midsternal chest burning sensation without any radiation with associated diaphoresis at onset without nausea, emesis or dyspnea rated initially 7/10. (1) Atypical Chest Pain: Work-up in the ED included T 97.6, heart rate 56, BP 141/92, respiratory rate 12, 99% on room air, CBC with WBC 11.1, hemoglobin 14.3, platelets 338 without shift, BMP with glucose 135 and BUN 21 with creatinine 0.90 otherwise unremarkable, BNP 46.6, troponin less than 0.015, chest x-ray with calcified plaques of the aortic arch with no acute cardiopulmonary findings otherwise, EKG with SR without acute evidence of ischemia. Will admit to PCU, place on a monitored bed to assure no acute myocardial infarction with serial cardiac enzymes and EKGs. If cardiac enzymes and EKGs remain unremarkable we will proceed with a.m. cardiac nuclear treadmill stress testing. CRP requested given patient positional discomfort changes and if elevated would obtain ECHO. ASA, NG, morphine. FLP in AM. Mag pending. Lipase and liver enzyme requested also as well as UDS. If lipase elevated then would de-escalate cardiac evaluation. (2) Diabetes mellitus type II: Hold oral home regimen, continue home insulin regimen, ADA diet, accu checks w/ ISS, nutrition consulted for education and teaching. (3) Hypertension: Continue home regimen including atenolol, lisinopril, spironolactone, PRN hydralazine. (4) Hyperlipidemia: Continue home statin regimen. AM FLP. (5) Anxiety and depression: Continue home Cymbalta regimen. (6) Hypothyroidism: Continue home synthroid regimen, TSH pending. (7) Obesity: Weight loss and lifestyle changes encouraged, nutrition consulted for education and teaching. (8) Hx Prior Tobacco Abuse: Encouraged continued cessation. (9) GERD: PPI. (10) DVT Prophylaxis: SCDs, lovenox. Code Visit OBSV E&M: [id number] Initial observation care L3
--- NOTE | 2019-02-17 19:37 | EKG12_ITS ---
Test Reason : AM EKG Blood Pressure : / mmHG Vent. Rate : 064 BPM Atrial Rate : 064 BPM P-R Int : 176 ms QRS Dur : 066 ms QT Int : 438 ms P-R-T Axes : 056 035 056 degrees QTc Int : 451 ms Normal sinus rhythm Low voltage QRS Nonspecific T wave abnormality Abnormal ECG Confirmed by CJ MARIA, ROYA ([id number]), staff editor ALEXIS HAWK ([id number]) on 02/21/2019 12:23:48 PM Referred By: Ambreen Gómez Confirmed By:ROYA CORONA MD
[2019-02-17 19:56] LABS: AST(SGOT) 12 U/L (15-37); Alanine Aminotransfer ALT/SGPT 19 U/L (13-56); Albumin, Serum 3.5 g/dL (3.2-5.0); Alkaline Phosphatase 71 U/L (45-117); CRP, High Sensitivity Cardiac 8.74 mg/L; Lipase 167 U/L (73-393); Magnesium 1.8 mg/dL (1.6-2.6); Protein, Total 7.5 g/dL (6.4-8.2); T4 Free Direct 1.09 ng/dL (0.76-1.46)
[2019-02-17 19:56] LABS: Bedside Glucose 88 mg/dL (70-110)
[2019-02-17] MEDS: Pantoprazole Sodium 20 MG Tablet PO (20:08)
[2019-02-17] MEDS: hydrALAZINE 20 MG/ML Vial 10 MG IV (20:08)
[2019-02-17] MEDS: Atorvastatin Calcium 20 MG Tablet PO (20:08)
[2019-02-17] MEDS: Acetaminophen 325 MG Tablet 650 MG PO (20:08)
[2019-02-17 20:55] LABS: Amphetamine Urine VISTA NEGATIVE (<1000 ng/mL); Barbiturate Urine VISTA NEGATIVE (< 200 ng/mL); Benzodiazepine Urine VISTA NEGATIVE (< 200 ng/mL); Cocaine Urine VISTA NEGATIVE (< 300 ng/mL); Ecstacy Urine VISTA NEGATIVE (< 500 ng/mL); Methadone Urine VISTA NEGATIVE (< 300 ng/mL); PCP Urine VISTA NEGATIVE (< 25 ng/mL); THC Urine VISTA NEGATIVE (< 50 ng/mL); Vista UDS pH Range 6
[2019-02-17] MEDS: 0.9% Normal Saline 1,000 ML 100 ML IV (23:05)
[2019-02-17] MEDS: HYDROcodone Bitartrate/Apap 5/325 Tablet PO (23:13)
[2019-02-18] VITALS (12 sets, daily range): BP systolic 106–132; BP diastolic 55–73; PULSE 53–85; RESP 16–18; TEMP 36.3–36.8; O2SAT 97–100
[2019-02-18] MEDS: Albuterol 2.5 MG/3 ML VIAL.NEB. INHALATION (00:53)
[2019-02-18] MEDS: Acetaminophen 325 MG Tablet 650 MG PO (03:55)
--- NOTE | 2019-02-18 03:55 | NURSING ---
Pt didnt like where the iv was and wanted this nurse to change it. Attempted x2 in hands and Lindsay attempted x1 one and was unsuccessful. Pt then didnt want it changed
[2019-02-18] MEDS: Levothyroxine 125 MCG Tablet PO (05:38)
[2019-02-18] MEDS: Aspirin E.C. 81 MG Tablet PO (05:39)
[2019-02-18 05:51] LABS: Bedside Glucose 83 mg/dL (70-110)
[2019-02-18] MEDS: Lisinopril 20 MG Tablet PO (05:51)
--- NOTE | 2019-02-18 05:55 | EKG12_ITS ---
Test Reason : CP ADMISSION Blood Pressure : / mmHG Vent. Rate : 056 BPM Atrial Rate : 056 BPM P-R Int : 130 ms QRS Dur : 064 ms QT Int : 458 ms P-R-T Axes : 060 015 058 degrees QTc Int : 441 ms Sinus bradycardia Low Voltage QRS (Limb Leads) Confirmed by CJ MARIA, ROYA ([id number]), video tape editor ALEXIS HAWK ([id number]) on 02/21/2019 12:27:07 PM Referred By: Ambreen Gómez Confirmed By:ROYA CORONA MD
[2019-02-18 06:31] LABS: Hematocrit 38.6 % (37-47); Hemoglobin 12.7 g/dl (12.0-15.0); Mean Corp Hgb Conc 32.9 g/gl (32-36); Mean Corpuscular Hgb 28.4 pg (27.0-32.0); Mean Corpuscular Volume 86.4 fL (81-99); Mean Platelet Vol. 9.8 fl (6.2-12.0); Platelet Count 272 K/mm3 (150-450); RBC Distribution Width CV 14.5 % (11.6-14.6); RBC Distribution Width SD 44.2 fl (35.1-43.9); Red Blood Count 4.47 M/mm3 (4.2-5.4); White Blood Count 9.8 K/mm3 (4.4-11.0)
[2019-02-18 06:32] LABS: Scan Indicated on CBC? Y/N NO
[2019-02-18 06:37] LABS: International Normalized Ratio 1.1; Partial Thromboplast Time 30.2 Seconds (24.1-36.2); Prothrombin Time (Protime)PT. 13.6 SECONDS (11.7-14.9)
[2019-02-18 06:52] LABS: ALB/GLOB Ratio 0.9 RATIO (0.9-2.4); AST(SGOT) 10 U/L (15-37); Alanine Aminotransfer ALT/SGPT 18 U/L (13-56); Albumin, Serum 2.9 g/dL (3.2-5.0); Alkaline Phosphatase 59 U/L (45-117); Anion Gap 6 (5-15); BUN 22 mg/dL (7-18); BUN/Creat Ratio 26.7 RATIO (10-20); Calcium,Total 7.8 mg/dL (8.5-10.1); Chloride 110 mmol/L (98-107); Cholesterol 165 mg/dL (200); Creatinine, Serum 0.82 mg/dL (0.55-1.02); EST Glomerular Filtration Rate 77 mL/min (>60); Est Glom Filt Rate - Afr Amer 94 mL/min (>60); Estimated Creatinine Clearance 57.65 ml/min; Globulin 3.2 g/dL (2.2-4.2); Glucose 75 mg/dL (74-106); High Density Lipoprotein 44 mg/dL; Potassium 3.6 mmol/L (3.5-5.1); Protein, Total 6.1 g/dL (6.4-8.2); Sodium Level 142 mmol/L (136-145); Thyroid Stim Hormone (TSH) 0.07 uIU/mL (0.358-3.74); Triglycerides 206 mg/dL; Very Low Density Lipoprotein 41 mg/dL (5-40)
--- NOTE | 2019-02-18 09:22 | ECHOD_ITS ---
Reason For Study: chest pain Procedure This was a 2D Doppler, Color Flow transthoracic echocardiogram. The study was technically difficult. Due to diminshed accoustic windows. PT scanned supine due to LUE IV discomfort, unable to lie in left lateral decubitus position. Exam performed portable in patient room. Left Ventricle Normal LV size. Left ventricular systolic function is normal. The estimated ejection fraction is 65 %. No evidence for diastolic dysfunction. No regional wall motion abnormalities noted. Right Ventricle Normal RV size. Normal systolic function. Atria Normal left atrium. Normal right atrium. No doppler evidence for ASD. Mitral Valve There is no mitral annular calcification. Normal mitral valve. Trivial mitral valve insufficiency. Tricuspid Valve Normal tricuspid valve. Mild tricuspid valve insufficiency. Right ventricular systolic pressure estimated to be 33 mmHg. Aortic Valve Trisinus/trileaflet aortic valve. Normal aortic valve. Pulmonic Valve The pulmonic valve is not well visualized. Great Vessels Normal sized aortic root. Pericardium/Pleural No pericardial effusion. MMode/2D Measurements & Calculations LVIDd: 4.3 cm IVSd: 1.1 cm Ao root diam: 2.8 cm LVIDs: 2.7 cm LVPWd: 1.1 cm RVDd: 2.5 cm FS: 35.5 % LAV(MOD-bp): 58.9 ml EDV(MOD-sp4): 71.9 ml EDV(MOD-sp2): 46.5 ml LAV(MOD-bp) Indexed: 32.5 ml/m2 ESV(MOD-sp4): 23.0 ml EF(MOD-sp2): 55.9 % LAV(MOD-sp2): 54.4 ml EF(MOD-sp4): 68.0 % LAV(MOD-sp4): 61.2 ml SV(MOD-sp4): 48.8 ml SV(MOD-sp2): 26.0 ml LA A4 area: 19.4 cm2 LA dimension(2D): 3.8 cm RA A4 area: 9.4 cm2 Time Measurements MV dec time: 0.19 sec Doppler Measurements & Calculations MV E max jayson: 99.0 cm/sec Lat Peak E' Jayson: 9.0 cm/sec Med Peak E' Jayson: 7.4 cm/sec MV A max jayson: 69.1 cm/sec E/E' lat: 11.0 E/E' med: 13.3 MV E/A: 1.4 Ao V2 max: 127.4 cm/sec LV V1 max: 101.5 cm/sec PA V2 max: 86.7 cm/sec Ao max P.5 mmHg LV V1 max P.1 mmHg TR max jayson: 252.2 cm/sec TR max P.4 mmHg Interpretation Summary The study was technically difficult. Left ventricular systolic function is normal. The estimated ejection fraction is 65 %. Trivial mitral valve insufficiency. Mild tricuspid valve insufficiency. Right ventricular systolic pressure estimated to be 33 mmHg. No evidence for diastolic dysfunction. Ordering Physician: CHASE Joel Referring Physician: Ambreen Gómez Performed By: Veda Hdez, LIAM, RVT
--- NOTE | 2019-02-18 09:51 | STRESSREP ---
Stress Test Report Date: 02-18-19 Procedure: Pharmacologic stress nuclear imaging study Indications: Chest pain Consent: Per the patient Procedure: The patient underwent pharmacologic (Regadenoson) evaluation with a peak heart rate of 89 beats per minute (52 %predicted maximal heart rate) and a peak blood pressure of 128/80 mmHg. The baseline ECG demonstrated normal sinus rhythm. The peak pharmacologic ECG demonstrated no obvious ECG changes. There were no cardiac dysrhythmias pretest, during pharmacologic infusion, or recovery. There was no complaint of chest discomfort during pharmacologic infusion or recovery. The examination was discontinued secondary to completion of protocol. Impression: 1. Pharmacologic (Regadenoson) evaluation 2. Peak pharmacologic ECG with no obvious ECG changes. 3. There were no cardiac dysrhythmias pretest, during pharmacologic infusion, or recovery. 4. Nuclear images pending Myocardial perfusion imaging study: Technique: The patient was injected with 11.8 millicuries of technetium 99m Cardiolite and subsequently rest SPECT Cardiolite nuclear imaging was obtained in the horizontal long, vertical long, and short axis views. The patient underwent pharmacologic (Regadenoson) evaluation with a peak heart rate of 89 beats per minute (52 % percent predicted maximal heart rate) and a peak blood pressure of 128/80 mmHg. The patient was injected with 33.3 millicuries of technetium 99m Cardiolite and subsequently stress SPECT Cardiolite nuclear imaging was obtained in the horizontal long, vertical long, and short axis views. A gated Cardiolite study at peak stress was obtained. Interpretation: Rest and stress SPECT Cardiolite nuclear imaging status post realignment, normalization, and attenuation correction demonstrate relative uniform tracer uptake and myocardial perfusion appearing within normal limits. There is end systolic thickening and brightening. The gated Cardiolite study demonstrates myocardial thickening and inward wall motion. The reported LVEF is 77 %. Impression: 1. Rest and stress SPECT Cardiolite nuclear imaging demonstrate relative uniform tracer uptake and myocardial perfusion appearing within normal limits. 2. The gated Cardiolite study reports an LVEF of 77 %. This note was generated with Digital Lumens software. It may contain incorrect words, spelling, and punctuation that were not noted in checking the note before signing.
[2019-02-18] MEDS: Spironolactone 25 MG Tablet PO (09:54)
[2019-02-18] MEDS: Enoxaparin 40 MG/0.4 ML Syringe SC (09:55)
[2019-02-18] MEDS: Meloxicam 15 MG Tablet PO (09:59)
[2019-02-18] MEDS: Estradiol 1 MG Tablet PO (09:59)
[2019-02-18] MEDS: DULoxetine Hcl 60 MG Capsule PO (10:00)
[2019-02-18] MEDS: Atenolol 100 MG Tablet PO (10:01)
[2019-02-18] MEDS: Pantoprazole Sodium 20 MG Tablet PO (10:03)
[2019-02-18 11:36] LABS: Bedside Glucose 83 mg/dL (70-110)
--- NOTE | 2019-02-18 11:38 | DCINST_ITS ---
- Discharge Diagnoses Current Active Problems: Current Active and Chronic Problems Chest pain (Acute) HTN (hypertension) (Chronic) HLD (hyperlipidemia) (Chronic) Diabetes mellitus, type II (Chronic) Anxiety and depression (Chronic) Obesity (Chronic) Hypothyroidism (Chronic) Former tobacco use (Chronic) You will use the following diet at home:: Calorie/Carbohydrate Controlled (specify 1200, 1400, etc), Cardiac Discharge Activity: Return to Normal Activity Call your doctor if you observe: Shortness of breath, Dizziness, Fainting spells, Chest pain Allergies/Adverse Reactions: Allergies Penicillins Allergy (Verified 02/17/19 17:01) Rash Sulfa (Sulfonamide Antibiotics) Adverse Reaction (Verified 02/17/19 17:01) Nausea/Vom/Diarrhea Medications to take at Discharge Atenolol [Tenormin (beta belkys)] 100 mg PO DAILY 02/24/18 Atorvastatin Calcium [Lipitor] 20 mg PO QHS 02/24/18 Duloxetine Hcl [Cymbalta] 60 mg PO DAILY 02/24/18 Empagliflozin [Jardiance] 10 mg PO DAILY 02/24/18 Estradiol [Estrace] 1 mg PO DAILY 02/24/18 Levothyroxine [Synthroid] 125 mcg PO DAILY 02/24/18 Lisinopril [Zestril] 20 mg PO DAILY 02/24/18 Meloxicam [Mobic] 15 mg PO DAILY 02/24/18 Metformin HCl [Glucophage] 1,000 mg PO BIDCM 02/24/18 Pioglitazone [Actos] 45 mg PO DAILY 02/24/18 Sitagliptin Phosphate [Januvia] 100 mg PO DAILY 02/24/18 Spironolactone [Aldactone] 25 mg PO DAILY 02/24/18 Insulin Glargine [Lantus SoloStar Pen] 34 unit SQ DAILY 11/27/18 Aspirin [Aspirin, Baby] 81 mg PO BID 02/17/19 Primary Care Physician: Jax Wahl MD [NON-STAFF] - Please follow up with your Primary Care Physician in: 1 Week Test Results: Test results from this visit will be discussed in further detail at your follow- up appointment, if applicable. Proposed Discharge Date: 02/18/19
--- NOTE | 2019-02-18 13:32 | PHA.DC.MR ---
Pharmacy Service has performed discharge medication reconciliation for this patient. No new medications were added to medication list at time of discharged. Reviewed home medication list. The patient's discharge medication list was reviewed for discrepancies and discrepancies were resolved. Home Medications Atenolol [Tenormin (beta belkys)] 100 mg PO DAILY 02/24/18 Atorvastatin Calcium [Lipitor] 20 mg PO QHS 02/24/18 Duloxetine Hcl [Cymbalta] 60 mg PO DAILY 02/24/18 Empagliflozin [Jardiance] 10 mg PO DAILY 02/24/18 Estradiol [Estrace] 1 mg PO DAILY 02/24/18 Levothyroxine [Synthroid] 125 mcg PO DAILY 02/24/18 Lisinopril [Zestril] 20 mg PO DAILY 02/24/18 Meloxicam [Mobic] 15 mg PO DAILY 02/24/18 Metformin HCl [Glucophage] 1,000 mg PO BIDCM 02/24/18 Pioglitazone [Actos] 45 mg PO DAILY 02/24/18 Sitagliptin Phosphate [Januvia] 100 mg PO DAILY 02/24/18 Spironolactone [Aldactone] 25 mg PO DAILY 02/24/18 Insulin Glargine [Lantus SoloStar Pen] 34 unit SQ DAILY 11/27/18 Aspirin [Aspirin, Baby] 81 mg PO BID 02/17/19
--- NOTE | 2019-02-18 13:59 | PCM.DC.SUM ---
Discharge Date and Diagnosis Date of Admission: 02/17/19 Date of Discharge: 02/18/19 - Primary Discharge Diagnosis Active and Suspected Problems 1. Musculoskeletal chest pain 2. Type 2 diabetes mellitus 3. Hypertension 4. Hyperlipidemia 5. Anxiety and depression 6. Hypothyroidism 7. Obesity 8. GERD 9. History of prior tobacco use - Secondary Discharge Diagnosis Chronic Problems HTN (hypertension) (Chronic) HLD (hyperlipidemia) (Chronic) Diabetes mellitus, type II (Chronic) Anxiety and depression (Chronic) Obesity (Chronic) Hypothyroidism (Chronic) Former tobacco use (Chronic) Hospital Course and Treatment Imaging Results: Diagnostic Data Chest X-Ray 02/17/19 16:43 IMPRESSION: Calcified plaques of the aortic arch. No acute cardiopulmonary disease process is seen. Electronically Signed: Mio Bonner MD at 17:04 EDT , Service support , Operations: None Procedures: 2-D Echocardiogram, Stress test Summary of Care Provided: The patient is a 54 year old F admitted 02/17/2019 due to chest pain. 1. Musculoskeletal chest pain-ACS ruled out. Troponin negative. EKG without ST-T changes. Patient underwent nuclear stress test which was negative for ischemia. CRP 8.74. Echocardiogram showed an EF of 65%, no evidence of diastolic dysfunction, RVSP estimated to be 33 mmHg. Pain is reproducible with palpation to chest. Patient has had recent upper respiratory virus with cough. She reports chest pain is worse with coughing. Suspect pain is musculoskeletal in nature versus GERD given report of burning sensation as well. Added on PPI. Follow-up with primary care physician 1 week. 2. Type 2 diabetes mellitus-continue home oral regimen. 3. Hypertension-stable, continue home atenolol, lisinopril, spironolactone regimen. 4. Hyperlipidemia-continue statin. 5. Anxiety and depression-continue home Cymbalta regimen. 6. Hypothyroidism-continue home Synthroid regimen. TSH low, T4 normal. 7. Obesity-encourage diet and lifestyle modification. 8. GERD-initiated on Protonix. 9. History of prior tobacco use Patient seen and examined prior to discharge. Physical assessment as noted below. Patient is stable for discharge with follow up recommendations as noted above. This patient was seen by CHASE Joel under the supervision of Dr. Garcia. - Physical Exam General: Alert, Oriented x3, Cooperative HEENT: Atraumatic, PERRLA, EOMI, Normocephalic Neck: Supple, No JVD, Negative Carotid Bruits Lungs: Clear to auscultation, Normal air movement Cardiovascular: Regular rate, Regular Rhythm, Normal S1, Normal S2, No murmurs Abdomen: Bowel Sounds Present, Soft, Non Tender, Non-Distended Extremities: No clubbing, No cyanosis, No edema, Capillary Refill Less than 3 Seconds Skin: No rashes, No breakdown Musculoskeletal: No Tenderness to Palpation of Joints or Extremities Neurological: Cranial nerves II-XII grossly intact, Neuro grossly intact Psych/Mental Status: Normal Affect, Appropriate Vital Signs Temp Pulse Resp BP Pulse Ox 97.9 F 63 16 128/63 H 97 02/18/19 11:30 02/18/19 12:32 02/18/19 11:30 02/18/19 11:30 02/18/19 11:30 Oxygen Delivery Method Room Air Weight: 186 lb 6.413 oz Body Mass Index (BMI) 36.3 Intake and Output for Last 24 Hours 02/16/19 02/17/19 02/18/19 23:59 23:59 23:59 Intake Total 440 / 440 989 / 989 Output Total 700 / 700 Balance 440 / 440 289 / 289 Laboratory Tests Past 24 Hrs 02/17/19 02/17/19 02/17/19 17:05 17:05 17:05 WBC 11.1 H RBC 5.09 Hgb 14.3 Hct 43.1 MCV 84.7 MCH 28.1 MCHC 33.2 RDW 14.5 RDW Differential 43.4 Plt Count 338 MPV 10.1 Immature Gran % (Auto) 0.500 Neut % (Auto) 60.8 Lymph % (Auto) 26.8 [place] % (Auto) 9.3 Eos % (Auto) 2.4 Baso % (Auto) 0.2 Absolute Neuts (auto) 6.7 Absolute Lymphs (auto) 2.96 Total Counted Not Reportable PT INR APTT Sodium 139 Potassium 4.3 Chloride 105 Carbon Dioxide 27.0 Anion Gap 7 BUN 21 H Creatinine 0.90 Estim Creat Clear Calc 52.52 Est GFR (MDRD) Af Amer 85 Est GFR (MDRD) Non-Af 70 BUN/Creatinine Ratio 23.3 H Glucose 135 H Calcium 9.0 Magnesium Total Bilirubin Direct Bilirubin AST ALT Alkaline Phosphatase Troponin I < 0.015 C-React Prot High Sens B-Natriuretic Peptide 46.6 Total Protein Albumin Globulin Albumin/Globulin Ratio Triglycerides Cholesterol LDL Cholesterol VLDL Cholesterol HDL Cholesterol Lipase TSH Free T4 Urine Opiates Screen Urine Methadone Screen Ur Barbiturates Screen Ur Phencyclidine Scrn Ur Amphetamines Screen U Methamphetamin-MDMA U Benzodiazepines Scrn Urine Cocaine Screen U Cannabinoids Screen Ur Drug Screen Comment 02/17/19 02/17/19 02/17/19 17:05 20:30 20:58 WBC RBC Hgb Hct MCV MCH MCHC RDW RDW Differential Plt Count MPV Immature Gran % (Auto) Neut % (Auto) Lymph % (Auto) [place] % (Auto) Eos % (Auto) Baso % (Auto) Absolute Neuts (auto) Absolute Lymphs (auto) Total Counted PT INR APTT Sodium Potassium Chloride Carbon Dioxide Anion Gap BUN Creatinine Estim Creat Clear Calc Est GFR (MDRD) Af Amer Est GFR (MDRD) Non-Af BUN/Creatinine Ratio Glucose Calcium Magnesium 1.8 Total Bilirubin 0.40 Direct Bilirubin 0.10 AST 12 L ALT 19 Alkaline Phosphatase 71 Troponin I < 0.015 C-React Prot High Sens 8.74 H B-Natriuretic Peptide Total Protein 7.5 Albumin 3.5 Globulin 4.0 Albumin/Globulin Ratio Triglycerides Cholesterol LDL Cholesterol VLDL Cholesterol HDL Cholesterol Lipase 167 TSH Free T4 1.09 Urine Opiates Screen POSITIVE H Urine Methadone Screen NEGATIVE Ur Barbiturates Screen NEGATIVE Ur Phencyclidine Scrn NEGATIVE Ur Amphetamines Screen NEGATIVE U Methamphetamin-MDMA NEGATIVE U Benzodiazepines Scrn NEGATIVE Urine Cocaine Screen NEGATIVE U Cannabinoids Screen NEGATIVE Ur Drug Screen Comment 02/17/19 02/18/19 02/18/19 23:33 06:05 06:05 WBC 9.8 RBC 4.47 Hgb 12.7 Hct 38.6 MCV 86.4 MCH 28.4 MCHC 32.9 RDW 14.5 RDW Differential 44.2 H Plt Count 272 MPV 9.8 Immature Gran % (Auto) Neut % (Auto) Lymph % (Auto) [place] % (Auto) Eos % (Auto) Baso % (Auto) Absolute Neuts (auto) Absolute Lymphs (auto) Total Counted PT INR APTT Sodium 142 Potassium 3.6 Chloride 110 H Carbon Dioxide 26.0 Anion Gap 6 BUN 22 H Creatinine 0.82 Estim Creat Clear Calc 57.65 Est GFR (MDRD) Af Amer 94 Est GFR (MDRD) Non-Af 77 BUN/Creatinine Ratio 26.7 H Glucose 75 Calcium 7.8 L Magnesium Total Bilirubin 0.50 Direct Bilirubin AST 10 L ALT 18 Alkaline Phosphatase 59 Troponin I < 0.015 C-React Prot High Sens B-Natriuretic Peptide Total Protein 6.1 L Albumin 2.9 L Globulin 3.2 Albumin/Globulin Ratio 0.9 Triglycerides 206 H Cholesterol 165 LDL Cholesterol 80 VLDL Cholesterol 41 H HDL Cholesterol 44 Lipase TSH 0.07 L Free T4 Urine Opiates Screen Urine Methadone Screen Ur Barbiturates Screen Ur Phencyclidine Scrn Ur Amphetamines Screen U Methamphetamin-MDMA U Benzodiazepines Scrn Urine Cocaine Screen U Cannabinoids Screen Ur Drug Screen Comment 02/18/19 06:05 WBC RBC Hgb Hct MCV MCH MCHC RDW RDW Differential Plt Count MPV Immature Gran % (Auto) Neut % (Auto) Lymph % (Auto) [place] % (Auto) Eos % (Auto) Baso % (Auto) Absolute Neuts (auto) Absolute Lymphs (auto) Total Counted PT 13.6 INR 1.1 APTT 30.2 Sodium Potassium Chloride Carbon Dioxide Anion Gap BUN Creatinine Estim Creat Clear Calc Est GFR (MDRD) Af Amer Est GFR (MDRD) Non-Af BUN/Creatinine Ratio Glucose Calcium Magnesium Total Bilirubin Direct Bilirubin AST ALT Alkaline Phosphatase Troponin I C-React Prot High Sens B-Natriuretic Peptide Total Protein Albumin Globulin Albumin/Globulin Ratio Triglycerides Cholesterol LDL Cholesterol VLDL Cholesterol HDL Cholesterol Lipase TSH Free T4 Urine Opiates Screen Urine Methadone Screen Ur Barbiturates Screen Ur Phencyclidine Scrn Ur Amphetamines Screen U Methamphetamin-MDMA U Benzodiazepines Scrn Urine Cocaine Screen U Cannabinoids Screen Ur Drug Screen Comment POC Glucose 02/18/19 02/18/19 02/17/19 11:29 05:47 19:50 POC Glucose 83 83 88 Discharge Diet: Low fat/ Low Cholesterol, Carb Control Diet Discharge Activity: Return to Normal Activity Call your doctor if you observe: Shortness of breath, Dizziness, Fainting spells, Chest pain Home Medications: Medications to take at Discharge Atenolol [Tenormin (beta belkys)] 100 mg PO DAILY 02/24/18 Atorvastatin Calcium [Lipitor] 20 mg PO QHS 02/24/18 Duloxetine Hcl [Cymbalta] 60 mg PO DAILY 02/24/18 Empagliflozin [Jardiance] 10 mg PO DAILY 02/24/18 Estradiol [Estrace] 1 mg PO DAILY 02/24/18 Levothyroxine [Synthroid] 125 mcg PO DAILY 02/24/18 Lisinopril [Zestril] 20 mg PO DAILY 02/24/18 Meloxicam [Mobic] 15 mg PO DAILY 02/24/18 Metformin HCl [Glucophage] 1,000 mg PO BIDCM 02/24/18 Pioglitazone [Actos] 45 mg PO DAILY 02/24/18 Sitagliptin Phosphate [Januvia] 100 mg PO DAILY 02/24/18 Spironolactone [Aldactone] 25 mg PO DAILY 02/24/18 Insulin Glargine [Lantus SoloStar Pen] 34 unit SQ DAILY 11/27/18 Aspirin [Aspirin, Baby] 81 mg PO BID 02/17/19 Pantoprazole Sodium [Protonix] 40 mg PO DAILY #30 tablet 02/18/19 Following Prescrptions Were Given to Patient: Pantoprazole Sodium [Protonix] 40 mg PO DAILY #30 tablet Primary Care Physician: Jax Wahl MD [NON-STAFF] - Please follow up with your Primary Care Physician in: 1 Week Disposition: Home Minutes spent on discharge:: 35 Patient Condition:: Stable Medical Necessity - Tobacco Use Smoking Status: Former smoker Tobacco Use: Non-smoker Meaningful Use Info Meaningful Use Diagnoses (Choose all that apply): None applicable
--- NOTE | 2019-02-18 15:54 | CHAPLAIN ---
patient was sleeping at time of attempted visit
[2019-02-18 16:30] LABS: Bedside Glucose 124 mg/dL (70-110)
== END 2019-02-18 11:38 | disposition home or self-care (01) ==
LOC: ED 17:56 → PCU 19:05
PROVIDERS: Admitting Provider Family Medicine; Emergency Provider Emergency Medicine; Family Provider Family Medicine; PCP Family Medicine; Referring Provider Family Medicine; Visit Provider Internal Medicine
DX: R07.89 Other chest pain (principal); I10 Essential (primary) hypertension; E11.9 Type 2 diabetes mellitus without complications; E78.5 Hyperlipidemia, unspecified; F41.9 Anxiety disorder, unspecified; F32.9 Major depressive disorder, single episode, unspecified; E03.9 Hypothyroidism, unspecified; I25.10 Atherosclerotic heart disease of native coronary artery without angina pectoris; M19.90 Unspecified osteoarthritis, unspecified site; E66.9 Obesity, unspecified; Z68.36 Body mass index [BMI] 36.0-36.9, adult; Z71.3 Dietary counseling and surveillance; Z79.899 Other long term (current) drug therapy; Z79.4 Long term (current) use of insulin; Z79.82 Long term (current) use of aspirin; Z87.891 Personal history of nicotine dependence; K21.9 Gastro-esophageal reflux disease without esophagitis; R00.1 Bradycardia, unspecified; I08.1 Rheumatic disorders of both mitral and tricuspid valves; R94.31 Abnormal electrocardiogram [ECG] [EKG]
CPT/HCPCS: 36415; 71045; 78452; 80048; 80053; 80061; 80076; 80307; 82962; 83690; 83735; 83880; 84439; 84443; 84484; 85025; 85027; 85610; 85730; 86141; 93005; 93017; 93306; 94640; 96361; 96372; 96374; 96375; 97802; 99218; 99285; A9500; J7030; Q9957; A4216; G0378; J2405; J2785

== ENCOUNTER → 2019-03-16 | Outpatient (CLI) | payer MEDICARE, MEDICAID, SELFPAY ==
[2019-02-17 19:21] VITALS: BMI 36.3
== END | disposition home or self-care (01) ==
PROVIDERS: Family Provider Family Medicine; PCP Family Medicine; Referring Provider Family Medicine; Visit Provider Family Medicine
DX: G47.33 Obstructive sleep apnea (adult) (pediatric) (principal); I27.20 Pulmonary hypertension, unspecified
CPT/HCPCS: 95810

== ENCOUNTER 2019-04-04 10:51 | Emergency (ER) | payer MEDICARE, SELFPAY ==
[2019-04-01 10:06] VITALS: BMI 37.8
[2019-04-04 10:52] VITALS: BP 148/83; PULSE 82; RESP 17; TEMP 36.6; O2SAT 100; BMI 37.8
[2019-04-04] MEDS: Fluconazole 100 MG Tablet 200 MG PO (11:50)
[2019-04-04 12:04] LABS: Mucous, Urine 0 SEEN /hpf (<or=2+); Red Blood Cells-Urine 0 SEEN /hpf (0-5)
[2019-04-04 12:08] LABS: Color, Urine Yellow (Yellow); Glucose, Dipstick 1000 mg/dl (Normal); Ketone-Dipstick Negative (Negative); Leukocyte Esterase-Dipstick 100 /ul (Negative); Nitrite-Dipstick Negative (Negative); Occult Blood-Urine 10 /ul (Negative); Protein-Dipstick 15 mg/dl (Negative); Specific Gravity, Urine 1.015 (1.002-1.030); Urine Bilirubin Dipstick Negative (Negative); Urine Clarity Sl. Cloudy (Clear); Urine Urobilinogen Normal (Normal)
[2019-04-04 12:14] LABS: Bacteria 1+ /hpf (None Seen); Squamous Epithelial Cells - UA 0-5 SEEN /hpf (5-10); White Blood Cells 5-10 SEEN /hpf (0-5)
[2019-04-04] MEDS: Nystatin Powder 15gm Bottle 1 APPLIC TOPICAL (12:58)
--- NOTE | 2019-04-04 13:35 | ED.VIS.GEN ---
History of Present Illness Chief Complaint: Rash Informant: Patient Onset: Days Context: Sudden Onset Timing: Continuous - Rash is continuous Quality: Erythematous weepy slightly pruritic rash and urinary symptoms Location: Groin Current Severity: Moderate Maximum Severity: Moderate Worsened by: Possibly diabetes Relieved by: Nothing Associated Symptoms: No associated symptoms Narrative: Patient is a middle-aged type 2 diabetic on insulin who presents with frequency, dysuria and rash. She states her blood sugar this morning was 110. She checks it regularly. She denies fever, chills night sweats. She denies nausea, vomiting or diarrhea. She has no other complaints. Prior similar symptoms: No Recent Illness/Hospitalization: No - Past Medical History (1) Anxiety and depression Status: Chronic (2) Diabetes mellitus, type II Status: Chronic (3) Former tobacco use Status: Chronic (4) HLD (hyperlipidemia) Status: Chronic (5) HTN (hypertension) Status: Chronic (6) Hypothyroidism Status: Chronic (7) Obesity Status: Chronic Past Medical History - Allergies and Home Meds Allergies/Adverse Reactions: Allergies Bleach (Sodium Hypochlorite) Allergy (Severe, Verified 04/04/19 10:52) HIVES Penicillins Allergy (Verified 04/04/19 10:52) Rash Sulfa (Sulfonamide Antibiotics) Adverse Reaction (Verified 04/04/19 10:52) Nausea/Vom/Diarrhea Primary Care Physician: Ranjeet Shine MD [Primary Care Provider] - Prior records reviewed: Yes Surgical History: noncontributory, - - Hysterectomy, cataract surgery. Lives: Alone Smoking Status: Never smoker Alcohol: None - Family History Maternal Family History: Family History (Last Reviewed 04/01/19 @ 10:03 by Rita Gusman) Other ANGINA Anxiety Arthritis Blood clotting disorder Bowel disease Breast cancer CVA (cerebral vascular accident) Cancer Colon cancer Depression Diabetes Heart disease Hyperlipidemia Hypertension Melanoma Mental disorder Myocardial infarction Osteoporosis Ovarian cancer Parkinsons disease Thyroid disorder Family History: Reports: - - Patient notes a maternal and paternal family history of hypertension, hyperlipidemia, diabetes. Paternal Family History: Family History (Last Reviewed 04/01/19 @ 10:03 by Rita Gusman) Other ANGINA Anxiety Arthritis Blood clotting disorder Bowel disease Breast cancer CVA (cerebral vascular accident) Cancer Colon cancer Depression Diabetes Heart disease Hyperlipidemia Hypertension Melanoma Mental disorder Myocardial infarction Osteoporosis Ovarian cancer Parkinsons disease Thyroid disorder Family History: Reports: - - Patient notes a maternal and paternal family history of hypertension, hyperlipidemia, diabetes. Review of Systems General: Denies: Chills, Fever, Malaise, Sweats Eyes: Denies: Visual changes - bilaterally, Blurred Vision - bilaterally ENT: Denies: Bilateral ear pain, Rhinorrhea, Sore throat Cardiovascular: Denies: Chest pain, Palpitations Respiratory: Denies: Dyspnea, Cough, Dyspnea on exertion Gastrointestinal: Denies: Abdominal pain, Nausea, Vomiting, Diarrhea, Melena, Hematochezia, - Genitourinary: Reports: Dysuria, Frequency Musculoskeletal: Denies: Myalgias, Neck pain, Back pain Skin: Reports: Rash. Denies: Wounds Neurological: Denies: Weakness, Parasthesia, Numbness Hematologic: Denies: Easy bruising, Easy bleeding Physical Exam Vital Signs/Narrative: Vital Signs Temp Pulse Resp BP Pulse Ox 04/04/19 10:52 97.8 F 82 17 148/83 H 100 Inital Vital Signs reviewed: Yes General: Well nourished, Well developed, No Acute Distress Head: Normocephalic, Atraumatic Eyes: Perrl, EOMI. Negative for: Pale conjunctiva, Scleral icterus, - ENT: Moist mucous membranes, No rhinorrhea Neck: Supple, Nontender, No lymphadenopathy, No JVD, - Cardiovascular: Regular rate, Regular rhythm, No murmurs, Normal S1, Normal S2 Respiratory: No distress, CTA bilaterally, Chest nontender Abdomen: Soft, Nontender, Nondistended, Normal bowel sounds Rectal: Deferred : - - Yeast infection Back: Nontender, Normal Inspection. Negative for: CVA tenderness Extremities: Nontender, No edema Skin: Normal color, Rash - Rash consistent with yeast infection right and left groin and perineum Neurological: Alert, Oriented x3, Cranial nerves II-XII grossly intact, Normal Strength, Normal Sensation Psychological: Normal affect, Normal Mood Diagnostic/Tx/Re-eval Laboratory Results 04/04/19 11:55 Urine Color Yellow Urine Clarity Sl. Cloudy Urine pH 5.0 Ur Specific [place] 1.015 Urine Protein 15 H Urine Glucose (UA) 1000 H Urine Ketones Negative Urine Occult Blood 10 H Urine Nitrite Negative Urine Bilirubin Negative Urine Urobilinogen Normal Ur Leukocyte Esterase 100 H Urine RBC 0 SEEN Urine WBC 5-10 SEEN Ur Squamous Epith Cells 0-5 SEEN Urine Bacteria 1+ Urine Mucus 0 SEEN - Medical Decision Making Patient presents with urinary symptoms and rash. Rash is consistent with yeast infection. She received Diflucan and nystatin powder. UA is consistent with infection. Will treat with Macrobid and discharged with prescription for nystatin since rash is weepy. ED Disposition - Plan for ED Patient: Disposition: Home or Assisted Living Diagnosis: Acute cystitis, Tinea cruris Instructions: ED Tinea Cruris General, ED Infec Bladder Female Ch Prescriptions: Nitrofurantoin Macrocrystals [Macrobid] 100 mg PO Q12 #14 cap Nystatin Powder [Mycostatin Powder] 1 applic TOPICAL TID #1 bottle Referrals: Ranjeet Shine MD [Primary Care Provider] -
[2019-04-04 13:57] VITALS: BP 155/86; PULSE 63; RESP 18; O2SAT 97
[2019-04-04] MEDS: Nitrofurantoin Macrocrystals 100 MG Capsule PO (13:57)
== END 2019-04-04 14:02 | disposition home or self-care (01) ==
PROVIDERS: Emergency Provider Emergency Medicine; Family Provider Family Medicine; PCP Family Medicine
DX: N30.00 Acute cystitis without hematuria (principal); B35.6 Tinea cruris; E11.9 Type 2 diabetes mellitus without complications; F41.9 Anxiety disorder, unspecified; F32.9 Major depressive disorder, single episode, unspecified; E78.5 Hyperlipidemia, unspecified; I10 Essential (primary) hypertension; E03.9 Hypothyroidism, unspecified; E66.9 Obesity, unspecified; Z79.4 Long term (current) use of insulin; Z79.82 Long term (current) use of aspirin; Z79.899 Other long term (current) drug therapy; Z87.891 Personal history of nicotine dependence
CPT/HCPCS: 81001; 99284

== ENCOUNTER → 2019-04-04 | Outpatient (CLI) | payer MEDICARE, MEDICAID, SELFPAY ==
[2019-02-17 19:21] VITALS: BMI 36.3
== END | disposition home or self-care (01) ==
LOC: SL 20:05
PROVIDERS: Family Provider Family Medicine; PCP Family Medicine; Referring Provider Physician Assistant; Visit Provider Physician Assistant
DX: G47.33 Obstructive sleep apnea (adult) (pediatric) (principal); N30.00 Acute cystitis without hematuria; B35.6 Tinea cruris; E11.9 Type 2 diabetes mellitus without complications; F41.9 Anxiety disorder, unspecified; F32.9 Major depressive disorder, single episode, unspecified; E78.5 Hyperlipidemia, unspecified; I10 Essential (primary) hypertension; E03.9 Hypothyroidism, unspecified; E66.9 Obesity, unspecified; Z79.4 Long term (current) use of insulin; Z79.82 Long term (current) use of aspirin; Z79.899 Other long term (current) drug therapy; Z87.891 Personal history of nicotine dependence
CPT/HCPCS: 81001; 95811; 99284

== ENCOUNTER 2019-04-18 15:00 | Outpatient (RCR) | payer MEDICARE, MEDICAID, SELFPAY ==
[2019-02-17 19:21] VITALS: BMI 36.3
== END 2019-04-24 23:59 ==
LOC: DC 15:00
PROVIDERS: Family Provider Family Medicine; PCP Family Medicine; Visit Provider Physician Assistant
DX: E11.65 Type 2 diabetes mellitus with hyperglycemia (principal); Z71.3 Dietary counseling and surveillance
CPT/HCPCS: 97802; 97803; G0108

== ENCOUNTER 2019-05-23 16:00 | Outpatient (RCR) | payer MEDICARE, MEDICAID, SELFPAY | END 2019-05-25 23:59 | LOC: DC 16:00 | PROVIDERS: Family Provider Family Medicine; PCP Family Medicine; Visit Provider Physician Assistant | DX: E11.65 Type 2 diabetes mellitus with hyperglycemia (principal); Z71.3 Dietary counseling and surveillance | CPT/HCPCS: 97803; G0108 ==

== ENCOUNTER 2019-06-20 13:26 | Emergency (ER) | payer MEDICARE, MEDICAID, SELFPAY ==
[2019-06-20 13:27] VITALS: BP 151/78; PULSE 58; RESP 18; TEMP 36.5; O2SAT 100; BMI 38.3
[2019-06-20 13:51] VITALS: RESP 18
--- NOTE | 2019-06-20 14:21 | ED.VIS.GEN ---
History of Present Illness Chief Complaint: Upper Extremity Injury Informant: Patient Onset: Weeks - 3 Context: Onset with activity Timing: Continuous Current Severity: Moderate Maximum Severity: Moderate Narrative: Patient presents with left foot thumb pain for a few weeks while working. This is worse when she moves it. Patient has no other obvious injury, pain is mild to moderate achy mostly around the snuffbox area. Past Medical History - Allergies and Home Meds Allergies/Adverse Reactions: Allergies Bleach (Sodium Hypochlorite) Allergy (Severe, Verified 06/20/19 13:29) HIVES Penicillins Allergy (Verified 06/20/19 13:29) Rash Sulfa (Sulfonamide Antibiotics) Adverse Reaction (Verified 06/20/19 13:29) Nausea/Vom/Diarrhea Primary Care Physician: Ranjeet Shine MD [Primary Care Provider] - Past Medical History: - - dm, htn Surgical History: noncontributory, - - Hysterectomy, cataract surgery. Smoking Status: Never smoker - Family History Maternal Family History: Family History (Last Reviewed 04/01/19 @ 10:03 by Rita Gusman) Other ANGINA Anxiety Arthritis Blood clotting disorder Bowel disease Breast cancer CVA (cerebral vascular accident) Cancer Colon cancer Depression Diabetes Heart disease Hyperlipidemia Hypertension Melanoma Mental disorder Myocardial infarction Osteoporosis Ovarian cancer Parkinsons disease Thyroid disorder Family History: Reports: - - Patient notes a maternal and paternal family history of hypertension, hyperlipidemia, diabetes. Paternal Family History: Family History (Last Reviewed 04/01/19 @ 10:03 by Rita Gusman) Other ANGINA Anxiety Arthritis Blood clotting disorder Bowel disease Breast cancer CVA (cerebral vascular accident) Cancer Colon cancer Depression Diabetes Heart disease Hyperlipidemia Hypertension Melanoma Mental disorder Myocardial infarction Osteoporosis Ovarian cancer Parkinsons disease Thyroid disorder Family History: Reports: - - Patient notes a maternal and paternal family history of hypertension, hyperlipidemia, diabetes. Review of Systems General: Denies: Fever Musculoskeletal: Reports: Extremity Pain Skin: Denies: Rash Neurological: Denies: Weakness, Parasthesia, Numbness Hematologic: Denies: Easy bruising Physical Exam Vital Signs/Narrative: Vital Signs Temp Pulse Resp BP Pulse Ox 06/20/19 13:51 18 06/20/19 13:27 97.7 F L 58 L 18 151/78 H 100 General: Well nourished, Well developed Cardiovascular: Regular rate, Regular rhythm Respiratory: No distress, CTA bilaterally Abdomen: Soft, Nontender Extremities: - - + Finklesteins test, otherwise nl exam, pain over extensor tendons of hand Diagnostic/Tx/Re-eval - Medical Decision Making Patient has signs and symptoms consistent with de Quervain's tenosynovitis. I will put her in a splint discharge her to follow-up with orthopedics Discharge stable condition ED Disposition - Plan for ED Patient: Disposition: Home or Assisted Living Diagnosis: Tenosynovitis, de Quervain Instructions: What Is De Quervain Tenosynovitis? Prescriptions: Naproxen [Naprosyn] 500 mg PO BID PRN #20 tab Prescription Printed Referrals: Rocky Holbrook DO [STAFF PHYSICIAN] - 3-5 Days
[2019-06-20] MEDS: Naproxen 500 MG Tablet PO (14:54)
== END 2019-06-20 14:55 | disposition home or self-care (01) ==
PROVIDERS: Emergency Provider Emergency Medicine; Family Provider Family Medicine; PCP Family Medicine
DX: M65.4 Radial styloid tenosynovitis [de Quervain] (principal); E11.9 Type 2 diabetes mellitus without complications; I10 Essential (primary) hypertension; Z79.82 Long term (current) use of aspirin; Z79.4 Long term (current) use of insulin; Z79.84 Long term (current) use of oral hypoglycemic drugs; Z79.899 Other long term (current) drug therapy
CPT/HCPCS: 99283

== ENCOUNTER 2019-06-28 14:17 | Emergency (ER) | payer MEDICARE, MEDICAID, SELFPAY ==
[2019-06-28] VITALS (7 sets, daily range): BP systolic 129–165; BP diastolic 64–86; PULSE 60–76; RESP 15–20; TEMP 36.8; O2SAT 97–99; BMI 39.5
--- NOTE | 2019-06-28 14:19 | CT_ITS ---
STUDY: CTA CHEST REASON FOR EXAM: Female, 54 years old. Dyspnea and chest pain RADIATION DOSAGE (If Supplied By Facility): CTDIvol = ( 14.73 ) mGy, DLP = ( 636.95 ) mGycm TECHNIQUE: The examination was performed with the intravenous administration of 100 IV Isovue 370. Post-processing of the angiographic images was performed, with multiplanar reformation and 3D reconstruction. Individualized dose optimization techniques were used for this CT. COMPARISON: None. FINDINGS: Normal enhancement of the main pulmonary artery and right and left pulmonary arteries. Normal enhancement of the bilateral peripheral pulmonary arteries. There is no demonstrated pulmonary embolism. Aberrant right subclavian artery. There is no demonstrated aortic dissection. Normal heart and pericardium. Normal mediastinum. Normal hilar regions. Normal visualized trachea and bronchi. The lungs are well expanded. Normal pulmonary parenchyma. Normal pleura. Normal chest wall structures. Normal osseous structures. Normal visualized upper abdomen. CT/CTA Chest W/WO Contrast IMPRESSION: Normal CTA chest examination, without a demonstrated pulmonary embolism or aortic dissection. Electronically Signed: Ranjeet Beach MD at 15:28 EDT Tel , Service support ,
--- NOTE | 2019-06-28 14:19 | EKG12_ITS ---
Test Reason : REPEAT CP Blood Pressure : / mmHG Vent. Rate : 078 BPM Atrial Rate : 078 BPM P-R Int : 190 ms QRS Dur : 074 ms QT Int : 400 ms P-R-T Axes : 057 003 030 degrees QTc Int : 456 ms Sinus rhythm with Premature supraventricular complexes Otherwise normal ECG Confirmed by BETH MARCUS ([id number]), copy editor ELIJAH ACEVEDO ([id number]) on 06/29/2019 1:39:31 PM Referred By: KYLE Confirmed By:BETH MARCUS
--- NOTE | 2019-06-28 14:19 | RAD_ITS ---
STUDY: X-RAY CHEST REASON FOR EXAM: Female, 54 years old. Chest pains and shortness of breath. TECHNIQUE: Single AP portable view of the chest. COMPARISON: Comparison is made with prior study dated February 17, 2019. FINDINGS: EKG electrodes are seen. The lungs are clear and expanded. There is no demonstrated pleural abnormality. Normal size heart. Normal mediastinum and skinny. Normal visualized pulmonary arteries. Normal visualized aortic arch and descending thoracic aorta. There are degenerative changes of the visualized thoracic spine. Normal visualized ribs, clavicles, and shoulders. There is no demonstrated abnormality of the visualized soft tissue structures of the upper abdomen. RAD/Chest 1 View (Portable) IMPRESSION: Normal x-ray examination of the chest. Electronically Signed: Chidi White, at 14:48 EDT , Service support ,
--- NOTE | 2019-06-28 14:21 | EKG12_ITS ---
Test Reason : CP Blood Pressure : / mmHG Vent. Rate : 065 BPM Atrial Rate : 065 BPM P-R Int : 168 ms QRS Dur : 062 ms QT Int : 392 ms P-R-T Axes : 058 056 065 degrees QTc Int : 407 ms Normal sinus rhythm Normal ECG Confirmed by BETH MARCUS ([id number]), social media editor STEVE JIMÉNEZ ([id number]) on 06/30/2019 2:28:26 PM Referred By: KYLE Confirmed By:BETH MARCUS
--- NOTE | 2019-06-28 14:27 | ED.DCSUM_ITS ---
History of Present Illness Chief Complaint: Chest Pain Informant: Patient Onset: Yesterday Context: Onset with activity Timing: Intermittent Current Severity: Moderate Maximum Severity: Moderate Narrative: The patient presents to the emergency department chest pain. Patient was in her normal state of health. She states yesterday, she had a sharp pain in her mid epigastric area that radiated to her back. Only lasted about 20 minutes. She states that it came in on today. She was feeling mildly nauseated and short of breath. The patient does have a history of hypertension, hyperlipidemia, and diabetes. The patient was admitted in January of this year for chest pain. At that point, she had an unremarkable stress test. She has no history of coronary vascular disease. She denies any fevers or chills. She denies any history of pulmonary embolus. She states pain is worse when she moves. She cannot recall any food intolerance. Prior similar symptoms: Yes Recent Illness/Hospitalization: No Past Medical History - Allergies and Home Meds Allergies/Adverse Reactions: Allergies Bleach (Sodium Hypochlorite) Allergy (Severe, Verified 06/28/19 14:21) HIVES Penicillins Allergy (Verified 06/28/19 14:21) Rash Sulfa (Sulfonamide Antibiotics) Adverse Reaction (Verified 06/28/19 14:21) Nausea/Vom/Diarrhea Primary Care Physician: Ranjeet Shine MD [Primary Care Provider] - Prior records reviewed: Yes Past Medical History: - - Hypertension, hyperlipidemia, diabetes Surgical History: noncontributory, - - Hysterectomy, cataract surgery. Smoking Status: Never smoker - Family History Maternal Family History: Family History (Last Reviewed 04/01/19 @ 10:03 by Rita Gusman) Other ANGINA Anxiety Arthritis Blood clotting disorder Bowel disease Breast cancer CVA (cerebral vascular accident) Cancer Colon cancer Depression Diabetes Heart disease Hyperlipidemia Hypertension Melanoma Mental disorder Myocardial infarction Osteoporosis Ovarian cancer Parkinsons disease Thyroid disorder Family History: Reports: - - Patient notes a maternal and paternal family history of hypertension, hyperlipidemia, diabetes. Paternal Family History: Family History (Last Reviewed 04/01/19 @ 10:03 by Rita Gusman) Other ANGINA Anxiety Arthritis Blood clotting disorder Bowel disease Breast cancer CVA (cerebral vascular accident) Cancer Colon cancer Depression Diabetes Heart disease Hyperlipidemia Hypertension Melanoma Mental disorder Myocardial infarction Osteoporosis Ovarian cancer Parkinsons disease Thyroid disorder Family History: Reports: - - Patient notes a maternal and paternal family history of hypertension, hyperlipidemia, diabetes. Review of Systems General: Denies: Chills, Fever, Sweats Eyes: Denies: Visual changes - bilaterally, Diplopia ENT: Denies: Rhinorrhea, Sore throat Cardiovascular: Reports: Chest pain. Denies: Palpitations Respiratory: Denies: Dyspnea, Cough, Dyspnea on exertion Gastrointestinal: Reports: Abdominal pain, Nausea. Denies: Vomiting, Diarrhea, Melena, Hematochezia Genitourinary: Denies: Dysuria, Hematuria, Frequency Musculoskeletal: Denies: Back pain, Extremity Pain Skin: Denies: Rash, Wounds Neurological: Denies: Headache, Weakness, Numbness Physical Exam Vital Signs/Narrative: Vital Signs Temp Pulse Resp BP Pulse Ox 06/28/19 14:18 98.2 F 66 18 143/86 H 98 Inital Vital Signs reviewed: Yes General: Well nourished, Well developed, No Acute Distress Head: Normocephalic, Atraumatic Eyes: Perrl, EOMI ENT: Moist mucous membranes, No rhinorrhea Neck: Supple, Nontender Cardiovascular: Regular rate, Regular rhythm, No murmurs Respiratory: No distress, CTA bilaterally, Chest tenderness Abdomen: Soft, Nondistended, Normal bowel sounds, Tender. Negative for: Guarding, Rebound tenderness, Splenomegaly, Mass Back: Nontender, Normal Inspection Extremities: Nontender, No edema Skin: Normal color, No rash Neurological: Alert, Oriented x3, Cranial nerves II-XII grossly intact, Normal Strength, Normal Sensation Psychological: Normal affect, Normal Mood Diagnostic/Tx/Re-eval Chest X-Ray - ED: 1 View, Read by ED Physician, Normal, Heart, Lungs, Mediastinum Clinical Impression(s) from Imaging Studies Chest CTA 06/28/19 14:19 IMPRESSION: Normal CTA chest examination, without a demonstrated pulmonary embolism or aortic dissection. Electronically Signed: Ranjeet Beach MD at 15:28 EDT Tel , Service support , Chest X-Ray 06/28/19 14:19 IMPRESSION: Normal x-ray examination of the chest. Electronically Signed: Chidi White at 14:48 EDT , Service support , Abnormal Lab Results 06/28/19 06/28/19 06/28/19 14:25 14:25 14:25 WBC 15.8 H RBC 5.14 Hgb 14.5 Hct 45.7 MCV 88.9 MCH 28.2 MCHC 31.7 L RDW Std Deviation 47.8 H RDW Coeff of Lidia 14.6 Plt Count 281 MPV 10.1 Immature Gran % (Auto) 0.500 Neut % (Auto) 78.4 H Lymph % (Auto) 12.7 L [place] % (Auto) 7.0 Eos % (Auto) 1.1 Baso % (Auto) 0.3 Absolute Neuts (auto) 12.3 H Absolute Lymphs (auto) 2.01 Nucleated RBC % 0 Sodium 140 Potassium 4.1 Chloride 106 Carbon Dioxide 30.0 Anion Gap 4 L BUN 14 Creatinine 0.99 Estim Creat Clear Calc 47.75 Est GFR (MDRD) Af Amer 75 Est GFR (MDRD) Non-Af 62 BUN/Creatinine Ratio 14.1 Glucose 91 Calcium 9.3 Magnesium 1.8 Total Bilirubin Cancelled 0.40 Direct Bilirubin Cancelled 0.11 AST Cancelled 12 L ALT Cancelled 22 Alkaline Phosphatase Cancelled 63 Troponin I < 0.015 Total Protein Cancelled 7.6 Albumin Cancelled 3.3 Globulin Cancelled 4.3 H Lipase 195 - Rhythm Strip Rhythm Strip: Sinus Rhythm Rate: 70 Ectopy: None - EKG Initial EKG Interpretation: Sinus Rhythm, No Acute Injury Pattern Prior: Unchanged - Medical Decision Making The patient's chest pain is reproducible. It is mostly in the midepigastric area. Is worse when she moves. She was also feeling mildly nauseated. Patient does have risks for coronary vascular disease. EKG was obtained which was unremarkable. The patient did have a stress test within the past 6 months which was normal. Has the pain went to her back, I did obtain CT imaging. There is no evidence of dissection or pulmonary embolus. There is no evidence of perforation. On reevaluation, the patient is feeling much improved. I do feel that this may be GI in nature, but the patient does have risk for coronary vascular disease. She is agreeable with plan for a repeat 3-hour troponin. As long as this is negative, I do feel the patient can safely be discharged. She is comfortable this plan of care. Disposition pending completion of lab results. Impression 1. Atypical chest pain ED Disposition - Plan for ED Patient: Instructions: CHEST PAIN, NonCardiac Referrals: Ranjeet Shine MD [Primary Care Provider] -
[2019-06-28 14:32] LABS: Absolute Lymphocyte Count 2.01 X10^3/uL (0.83-4.51); Absolute Neutrophil Count 12.3 X10^3/uL (2.0-7.7); Basophil# 0.05 X10^3/uL; Basophil% 0.3 % (0-1); Eosinophil# 0.18 X10^3/uL; Eosinophils% 1.1 % (0-5); Hematocrit 45.7 % (37-47); Hemoglobin 14.5 g/dL (12.0-15.0); Lymphocyte # 2.01 X10^3/ul (4.0); Lymphocyte % 12.7 % (19-41); Mean Corp Hgb Conc 31.7 g/dL (32-36); Mean Corpuscular Hgb 28.2 pg (27.0-32.0); Mean Corpuscular Volume 88.9 fL (81-99); Mean Platelet Vol. 10.1 fl (6.2-12.0); Monocyte# 1.11 X10^3/uL; NRBC Flagged by Analyzer 0 % (0-5); Neutrophil # 12.34 X10^3/uL (2.7-7.7); Neutrophil % 78.4 % (47-70); Platelet Count 281 K/mm3 (150-450); RBC Distribution Width CV 14.6 % (11.6-14.6); RBC Distribution Width SD 47.8 fl (35.1-43.9); Red Blood Count 5.14 M/mm3 (4.2-5.4); White Blood Count 15.8 K/mm3 (4.4-11.0)
[2019-06-28] MEDS: 0.9% Normal Saline 1,000 ML 150 ML IV (14:48)
[2019-06-28] MEDS: Ondansetron 4 MG/2 ML Vial IV (14:49)
[2019-06-28] MEDS: Morphine 4 MG/ML Syringe IV (14:49)
[2019-06-28 14:52] LABS: AST(SGOT) 12 U/L (15-37); Alanine Aminotransfer ALT/SGPT 22 U/L (13-56); Albumin, Serum 3.3 g/dL (3.2-5.0); Alkaline Phosphatase 63 U/L (45-117); Anion Gap 4 (5-15); BUN 14 mg/dL (7-18); BUN/Creat Ratio 14.1 RATIO (10-20); Bilirubin, Direct 0.11 mg/dL (0.00-0.30); Calcium,Total 9.3 mg/dL (8.5-10.1); Chloride 106 mmol/L (98-107); Creatinine, Serum 0.99 mg/dL (0.55-1.02); EST Glomerular Filtration Rate 62 mL/min (>60); Est Glom Filt Rate - Afr Amer 75 mL/min (>60); Estimated Creatinine Clearance 47.75 ml/min; Globulin 4.3 g/dL (2.2-4.2); Glucose 91 mg/dL (74-106); Lipase 195 U/L (73-393); Magnesium 1.8 mg/dL (1.6-2.6); Potassium 4.1 mmol/L (3.5-5.1); Protein, Total 7.6 g/dL (6.4-8.2); Sodium Level 140 mmol/L (136-145)
[2019-06-28] MEDS: Mag Hydrox/Al Hydrox/Simeth 30 ML UDC PO (15:45)
--- NOTE | 2019-06-28 15:59 | CT_ITS ---
STUDY: CT ABDOMEN AND PELVIS WITHOUT CONTRAST REASON FOR EXAM: Female, 54 years old. Nausea. Chest pain and dyspnea. RADIATION DOSAGE (If Supplied By Facility): CTDIvol = ( 21.32 ) mGy, DLP = ( 1038.47 ) mGycm TECHNIQUE: Transaxial images were obtained from the dome of the diaphragm to the symphysis pubis without oral contrast, and without intravenous contrast. Sagittal and coronal images were reconstructed. Individualized dose optimization techniques were used for this CT. COMPARISON: CTA of the chest, June 28, 2019. A report of a CT of the abdomen and pelvis performed October 29, 2011 which is not available for direct comparison. FINDINGS: The visualized lung bases are unremarkable. The visualized portions of the heart are within normal limits. Normal liver. Normal gallbladder and extrahepatic biliary system. Normal spleen. Normal pancreas. Normal bilateral adrenal glands. Normal right kidney. Normal left kidney. Normal bilateral ureters. Question small type I hiatal hernia. The stomach is otherwise unremarkable. Normal small intestine. Air and feces is seen throughout a nondistended colon. There is no mass or obstruction. The appendix is visualized and appears normal. Normal abdominal aorta. Normal inferior vena cava. Normal retroperitoneum. Normal urinary bladder. Normal vaginal cuff. There is no pelvic lymphadenopathy or mass. No free air or free fluid is seen within the peritoneal cavity. Normal abdominal wall. There are diffuse degenerative changes of the visualized lumbar spine. CT/Abdomen/Pelvis without Cont IMPRESSION: 1. No evidence of acute intra-abdominal or pelvic abnormality. 2. Small hiatal hernia. 3. Status post hysterectomy. 4. Minimal degenerative changes of the lumbar spine. Electronically Signed: Mike Patel DO at 16:31 EDT Tel [phone], Service support ,
== END 2019-06-28 18:57 | disposition home or self-care (01) ==
LOC: ED 14:45
PROVIDERS: Emergency Provider Emergency Medicine; Family Provider Family Medicine; PCP Family Medicine
DX: R07.89 Other chest pain (principal); R11.0 Nausea; R06.00 Dyspnea, unspecified; I10 Essential (primary) hypertension; E78.5 Hyperlipidemia, unspecified; E11.9 Type 2 diabetes mellitus without complications; Z79.82 Long term (current) use of aspirin; Z79.84 Long term (current) use of oral hypoglycemic drugs; Z79.4 Long term (current) use of insulin; Z79.899 Other long term (current) drug therapy
CPT/HCPCS: 71045; 71275; 74176; 80048; 80076; 83690; 83735; 84484; 85025; 93005; 96361; 96374; 96375; 99285; J7030; Q9967; A4216; J2405

== ENCOUNTER 2019-07-04 13:19 | Outpatient (RCR) | payer MEDICARE, MEDICAID, SELFPAY ==
[2019-06-28 14:18] VITALS: BMI 39.5
== END 2019-07-25 23:59 ==
LOC: DC 13:19
PROVIDERS: Family Provider Family Medicine; PCP Family Medicine; Visit Provider Physician Assistant
DX: E11.9 Type 2 diabetes mellitus without complications (principal); Z71.3 Dietary counseling and surveillance
CPT/HCPCS: 97803

== ENCOUNTER → 2019-09-01 10:14 | Outpatient (CLI) | payer MEDICARE, MEDICAID, SELFPAY ==
[2019-06-28 14:18] VITALS: BMI 39.5
--- NOTE | 2019-09-01 10:16 | BI_ITS ---
MAMMOGRAPHY - BILATERAL SCREENING REASON FOR EXAM: Female, 54 years old. Routine annual screening examination. PERTINENT HISTORY: Aunts with breast cancer. TECHNIQUE: Digital bilateral breast dane (3D mammographic acquisition) in the CC and MLO projections. 2-D mediolateral oblique (MLO) and craniocaudad (CC) views of both breasts were obtained. CAD: Full Field Digital Mammography with Computer Added Detection was performed. COMPARISON: Comparison is made with prior study dated August 27, 2018 and July 03, 2017. FINDINGS: Breast Composition: There are scattered areas of fibroglandular density. There are no dominant masses or suspicious calcifications. No other significant abnormalities are identified. There has been no significant change since the prior study. BI/SCREEN MAMM (CAD) W/DANE BILAT IMPRESSION: Stable bilateral screening mammogram. Yearly follow-up mammogram recommended. (A) ASSESSMENT CATEGORY: BIRADS Category 1: Negative. A letter regarding these results will be sent to the patient by the facility within 30 days. Approximately 10% of breast cancers are not detected by mammography. A normal mammogram should not delay biopsy of a clinically suspicious abnormality. [id number] Electronically Signed: Chidi White, at 12:34 EST , Service support ,
== END ==
PROVIDERS: Family Provider Family Medicine; PCP Family Medicine; Referring Provider Family Medicine; Visit Provider Family Medicine
DX: Z12.31 Encounter for screening mammogram for malignant neoplasm of breast (principal)
CPT/HCPCS: 77063; 77067

== ENCOUNTER 2019-11-25 17:08 | Emergency (ER) | payer MEDICARE, MEDICAID, SELFPAY ==
[2019-06-28 14:18] VITALS: BMI 39.5
[2019-11-25 17:10] VITALS: BP 166/106; PULSE 77; RESP 14; TEMP 36.8; O2SAT 97; BMI 33.0
--- NOTE | 2019-11-25 17:18 | EKG12_ITS ---
Test Reason : CP Blood Pressure : / mmHG Vent. Rate : 080 BPM Atrial Rate : 080 BPM P-R Int : 100 ms QRS Dur : 076 ms QT Int : 402 ms P-R-T Axes : -06 020 048 degrees QTc Int : 463 ms Sinus rhythm with short HI Otherwise normal ECG When compared with ECG of 28-JUN-2019 15:51, Premature supraventricular complexes are no longer Present HI interval has decreased Nonspecific T wave abnormality now evident in Lateral leads Confirmed by MITCHEL MARIA, JUANJOSE ([id number]), brands editor STEVE JIMÉNEZ ([id number]) on 12/05/2019 1:16:36 PM Referred By: Confirmed By:NICCI GRULLON MD
--- NOTE | 2019-11-25 17:38 | ED.VIS.GEN ---
History of Present Illness Chief Complaint: Chest Pain Detail of Chief Complaint: Redness of breath driving to work Onset: Days - Onset of illness November 14. Context: Sudden Onset Timing: Continuous Quality: Rhinorrhea, cough and chest pain Location: Upper respiratory Current Severity: Moderate Maximum Severity: Severe Worsened by: Nothing specific Relieved by: Nothing Associated Symptoms: Viral type symptoms Narrative: Patient became ill November 14 and seen by primary care physician. She was prescribed a Z-Amarjit. She completed the Z-Amarjit on November 20. She reports rhinorrhea, congestion, sore throat and cough. The cough is nonproductive. Driving to work she became short of breath and had chest discomfort. The chest discomfort has resolved. Chest discomfort was sharp. There was no pleuritic component. She denies leg pain, swelling discoloration. There is no history of VTE. There is been no documented fever. She does complain of forehead discomfort. She does report sensitivity to light and stiff neck. She denies ear pain, decreased hearing or discharge from her ears. She denies vomiting or diarrhea. She denies dysuria, frequency, urgency or hematuria. She denies myalgias or arthralgias. She denies joint swelling. Prior similar symptoms: Yes Recent Illness/Hospitalization: Yes - Past Medical History (1) Chest pain Status: Acute (2) Anxiety and depression Status: Chronic (3) Diabetes mellitus, type II Status: Chronic (4) Former tobacco use Status: Chronic (5) HLD (hyperlipidemia) Status: Chronic (6) HTN (hypertension) Status: Chronic (7) Hypothyroidism Status: Chronic (8) Obesity Status: Chronic Past Medical History - Allergies and Home Meds Allergies/Adverse Reactions: Allergies Bleach (Sodium Hypochlorite) Allergy (Severe, Verified 06/28/19 14:21) HIVES Penicillins Allergy (Verified 06/28/19 14:21) Rash Sulfa (Sulfonamide Antibiotics) Adverse Reaction (Verified 06/28/19 14:21) Nausea/Vom/Diarrhea Primary Care Physician: Ranjeet Shine MD [Primary Care Provider] - Prior records reviewed: Yes Surgical History: noncontributory, - - Hysterectomy, cataract surgery. Lives: - - nursing home Smoking Status: Never smoker Alcohol: None Drugs: None - Family History Maternal Family History: Family History (Last Reviewed 04/01/19 @ 10:03 by Rita Gusman) Other ANGINA Anxiety Arthritis Blood clotting disorder Bowel disease Breast cancer CVA (cerebral vascular accident) Cancer Colon cancer Depression Diabetes Heart disease Hyperlipidemia Hypertension Melanoma Mental disorder Myocardial infarction Osteoporosis Ovarian cancer Parkinsons disease Thyroid disorder Family History: Reports: - - Patient notes a maternal and paternal family history of hypertension, hyperlipidemia, diabetes. Paternal Family History: Family History (Last Reviewed 04/01/19 @ 10:03 by Rita Gusman) Other ANGINA Anxiety Arthritis Blood clotting disorder Bowel disease Breast cancer CVA (cerebral vascular accident) Cancer Colon cancer Depression Diabetes Heart disease Hyperlipidemia Hypertension Melanoma Mental disorder Myocardial infarction Osteoporosis Ovarian cancer Parkinsons disease Thyroid disorder Family History: Reports: - - Patient notes a maternal and paternal family history of hypertension, hyperlipidemia, diabetes. Review of Systems General: Reports: Malaise, Sweats. Denies: Chills, Fever, Weight loss Eyes: Reports: - - She reports light sensitivity. Denies: Visual changes - bilaterally, Blurred Vision - bilaterally, Diplopia ENT: Reports: Rhinorrhea, Sore throat. Denies: Bilateral ear pain Cardiovascular: Reports: Chest pain. Denies: Palpitations, Heart racing Respiratory: Reports: Dyspnea, Cough, Orthopnea. Denies: Sputum, Dyspnea on exertion Gastrointestinal: Denies: Abdominal pain, Nausea, Vomiting, Diarrhea, Melena, Hematochezia Genitourinary: Denies: Dysuria, Hematuria, Frequency Musculoskeletal: Denies: Myalgias, Arthralgias, Neck pain, Back pain, Swelling, Extremity Pain, -, - Skin: Denies: Rash, Wounds Neurological: Denies: Headache, Weakness, Parasthesia, Numbness Psych: Reports: Depression, Anxiety Hematologic: Denies: Easy bruising, Easy bleeding Physical Exam Vital Signs/Narrative: Vital Signs Temp Pulse Resp BP Pulse Ox 11/25/19 17:10 98.2 F 77 14 166/106 H 97 Inital Vital Signs reviewed: Yes General: Well nourished, Well developed, Obese, No Acute Distress, - - Patient appears anxious. Head: Normocephalic, Atraumatic. Negative for: Trauma, Tenderness Eyes: Perrl, EOMI. Negative for: Pale conjunctiva, Scleral icterus ENT: Moist mucous membranes, No rhinorrhea, TM's clear Neck: Supple, Nontender Cardiovascular: Regular rate, Regular rhythm, No murmurs, Normal S1, Normal S2 Respiratory: No distress, CTA bilaterally, Chest nontender Abdomen: Soft, Nontender, Nondistended, Normal bowel sounds Back: Nontender, Normal Inspection Extremities: Nontender, No edema, - - There is no asymmetry, swelling, discoloration, leg vein distention, palpable cords or tenderness along the distribution of the deep venous system. Skin: Normal color, No rash, Diaphoresis, No Trauma. Negative for: Cyanosis, Jaundice Neurological: Alert, Oriented x3, Cranial nerves II-XII grossly intact, Normal Strength, Normal Sensation, Normal DTR Psychological: - - Affect is not normal. She appears depressed. Diagnostic/Tx/Re-eval Chest X-Ray - ED: 2 View, Read by ED Physician, Normal, Heart, Lungs, Mediastinum, Bony Structures, Chronic Changes, - Impressions Chest X-Ray 11/25/19 17:47 IMPRESSION: No acute cardiopulmonary findings or changes. Negative for consolidation, atelectasis, pleural effusion or cardiomegaly. Electronically Signed: Tiffani Veloz MD at 18:06 EST , Service support , 11/25/19 17:47 Chest PA and Lateral [RAD] Stat Laboratory Results 11/25/19 11/25/19 17:30 17:30 WBC 10.8 RBC 5.48 H Hgb 13.6 Hct 45.1 MCV 82.3 MCH 24.8 L MCHC 30.2 L RDW Std Deviation 45.2 H RDW Coeff of Lidia 15.3 H Plt Count 294 MPV 10.0 Immature Gran % (Auto) 0.500 Neut % (Auto) 66.6 Lymph % (Auto) 20.7 [place] % (Auto) 8.1 Eos % (Auto) 3.6 Baso % (Auto) 0.5 Absolute Neuts (auto) 7.2 Absolute Lymphs (auto) 2.22 Nucleated RBC % 0 Sodium 138 Potassium 4.5 Chloride 105 Carbon Dioxide 27.0 Anion Gap 6 BUN 18 Creatinine 1.08 H Estim Creat Clear Calc 43.77 Est GFR (MDRD) Af Amer 68 Est GFR (MDRD) Non-Af 56 L BUN/Creatinine Ratio 16.7 Glucose 156 H Calcium 9.3 CBC and basic metabolic panel unremarkable. Chest x-ray was unremarkable. - Medical Decision Making Patient has viral-like symptoms that started 11 days ago. She completed a course of antibiotics with no improvement. She presents because she developed acute shortness of breath. She seems anxious. She also appears depressed. She is diaphoretic. She is not febrile, tachypneic or tachycardic. Pulse ox on room air is 97%. With upper respiratory symptoms d-dimer was not obtained since his may be elevated for infectious reason. Patient is not PERC negative because of age. Patient's history and physical is not consistent with pulmonary embolus. ED Disposition - Plan for ED Patient: Disposition: Home or Assisted Living Diagnosis: Upper respiratory infection with cough and congestion Instructions: URI, Viral, No Abx (Adult) Referrals: Ranjeet Shine MD [Primary Care Provider] - 1 Week if not improving
[2019-11-25] MEDS: 0.9% Normal Saline 1,000 ML 1000 ML IV (17:43)
--- NOTE | 2019-11-25 17:47 | RAD_ITS ---
STUDY: X-RAY CHEST REASON FOR EXAM: Female, 54 years old. STERNAL CHEST PAIN, DIAPHORETIC, HYPERTENSION TECHNIQUE: 2 views COMPARISON: Prior exam of June 28, 2019 FINDINGS: The lungs are clear and expanded. There is no demonstrated pleural abnormality. Normal size heart. Normal mediastinum and skinny. Normal visualized pulmonary arteries. Normal visualized aortic arch and descending thoracic aorta. There are diffuse degenerative changes of the visualized thoracic spine. Normal visualized ribs, clavicles, and shoulders. There is no demonstrated abnormality of the visualized soft tissue structures of the upper abdomen. RAD/Chest PA and Lateral IMPRESSION: No acute cardiopulmonary findings or changes. Negative for consolidation, atelectasis, pleural effusion or cardiomegaly. Electronically Signed: Tiffani Veloz MD at 18:06 EST , Service support ,
[2019-11-25 17:51] LABS: Absolute Lymphocyte Count 2.22 X10^3/uL (0.83-4.51); Absolute Neutrophil Count 7.2 X10^3/uL (2.0-7.7); Basophil# 0.05 X10^3/uL; Basophil% 0.5 % (0-1); Eosinophil# 0.39 X10^3/uL; Eosinophils% 3.6 % (0-5); Hematocrit 45.1 % (37-47); Hemoglobin 13.6 g/dL (12.0-15.0); Lymphocyte # 2.22 X10^3/ul (4.0); Lymphocyte % 20.7 % (19-41); Mean Corp Hgb Conc 30.2 g/dL (32-36); Mean Corpuscular Hgb 24.8 pg (27.0-32.0); Mean Corpuscular Volume 82.3 fL (81-99); Monocyte# 0.87 X10^3/uL; Monocyte% 8.1 % (0-10); NRBC Flagged by Analyzer 0 % (0-5); Neutrophil # 7.17 X10^3/uL (2.7-7.7); Neutrophil % 66.6 % (47-70); Platelet Count 294 K/mm3 (150-450); RBC Distribution Width CV 15.3 % (11.6-14.6); RBC Distribution Width SD 45.2 fl (35.1-43.9); Red Blood Count 5.48 M/mm3 (4.2-5.4); White Blood Count 10.8 K/mm3 (4.4-11.0)
[2019-11-25 18:09] VITALS: BP 142/71; PULSE 81; RESP 18; O2SAT 97
[2019-11-25 18:16] LABS: Anion Gap 6 (5-15); BUN 18 mg/dL (7-18); BUN/Creat Ratio 16.7 RATIO (10-20); Calcium,Total 9.3 mg/dL (8.5-10.1); Chloride 105 mmol/L (98-107); Creatinine, Serum 1.08 mg/dL (0.55-1.02); EST Glomerular Filtration Rate 56 mL/min (>60); Est Glom Filt Rate - Afr Amer 68 mL/min (>60); Estimated Creatinine Clearance 43.77 ml/min; Glucose 156 mg/dL (74-106); Potassium 4.5 mmol/L (3.5-5.1); Sodium Level 138 mmol/L (136-145)
[2019-11-25 19:42] VITALS: BP 131/60; PULSE 71; RESP 16; O2SAT 94
== END 2019-11-25 19:42 | disposition home or self-care (01) ==
PROVIDERS: Emergency Provider Emergency Medicine; PCP Family Medicine
DX: J06.9 Acute upper respiratory infection, unspecified (principal); E11.9 Type 2 diabetes mellitus without complications; I10 Essential (primary) hypertension; E03.9 Hypothyroidism, unspecified; E78.5 Hyperlipidemia, unspecified; F32.9 Major depressive disorder, single episode, unspecified; F41.9 Anxiety disorder, unspecified; E66.9 Obesity, unspecified; Z79.82 Long term (current) use of aspirin; Z79.4 Long term (current) use of insulin; Z79.899 Other long term (current) drug therapy; Z87.891 Personal history of nicotine dependence; Z88.0 Allergy status to penicillin; Z88.2 Allergy status to sulfonamides; Z90.710 Acquired absence of both cervix and uterus
CPT/HCPCS: 71046; 80048; 85025; 93005; 96360; 96361; 99285; J7030; A4216

== ENCOUNTER 2020-01-13 12:19 | Emergency (ER) | payer MEDICARE, MEDICAID, SELFPAY ==
[2020-01-13 12:20] VITALS: BP 165/95; PULSE 85; RESP 17; TEMP 36.8; O2SAT 100; BMI 32.4
--- NOTE | 2020-01-13 12:45 | RAD_ITS ---
STUDY: X-RAY - RIGHT KNEE REASON FOR EXAM: Female, 54 years old. Pt. Fell directly on to patella today, pain TECHNIQUE: AP and lateral view(s) of the knee. COMPARISON: None. FINDINGS: Normal visualized distal femur. Normal visualized proximal tibia and fibula. Normal proximal tibiofibular articulation. Normal medial femorotibial compartment. Normal lateral femorotibial compartment. Normal patellofemoral articulation. Tiny joint effusion. RAD/Knee 1 or 2 Views IMPRESSION: Tiny joint effusion. Electronically Signed: Chidi White, at 12:57 EDT , Service support ,
[2020-01-13] MEDS: oxyCODONE 5 MG Tablet PO (12:50)
--- NOTE | 2020-01-13 12:55 | ED.VIS.GEN ---
History of Present Illness Chief Complaint: Fall Narrative: 54-year-old female tripped on a curb while she was on a sidewalk. She landed directly on her right knee. She denies any other injuries. She has right knee pain only. Onset was sudden. Severity is mild. Worse with palpation. Past Medical History - Allergies and Home Meds Allergies/Adverse Reactions: Allergies Bleach (Sodium Hypochlorite) Allergy (Severe, Verified 01/13/20 12:19) HIVES Penicillins Allergy (Verified 01/13/20 12:19) Rash Sulfa (Sulfonamide Antibiotics) Adverse Reaction (Verified 01/13/20 12:19) Nausea/Vom/Diarrhea Primary Care Physician: Ranjeet Shine MD [Primary Care Provider] - Prior records reviewed: Yes Surgical History: noncontributory, - - Hysterectomy, cataract surgery. Smoking Status: Never smoker - Family History Maternal Family History: Family History (Last Reviewed 04/01/19 @ 10:03 by Rita Gusman) Other ANGINA Anxiety Arthritis Blood clotting disorder Bowel disease Breast cancer CVA (cerebral vascular accident) Cancer Colon cancer Depression Diabetes Heart disease Hyperlipidemia Hypertension Melanoma Mental disorder Myocardial infarction Osteoporosis Ovarian cancer Parkinsons disease Thyroid disorder Family History: Reports: - - Patient notes a maternal and paternal family history of hypertension, hyperlipidemia, diabetes. Paternal Family History: Family History (Last Reviewed 04/01/19 @ 10:03 by Rita Gusman) Other ANGINA Anxiety Arthritis Blood clotting disorder Bowel disease Breast cancer CVA (cerebral vascular accident) Cancer Colon cancer Depression Diabetes Heart disease Hyperlipidemia Hypertension Melanoma Mental disorder Myocardial infarction Osteoporosis Ovarian cancer Parkinsons disease Thyroid disorder Family History: Reports: - - Patient notes a maternal and paternal family history of hypertension, hyperlipidemia, diabetes. Review of Systems General: Denies: Chills, Fever, Sweats Eyes: Denies: Visual changes - bilaterally, Diplopia ENT: Denies: Rhinorrhea, Sore throat Cardiovascular: Denies: Chest pain, Palpitations Respiratory: Denies: Dyspnea, Cough, Dyspnea on exertion Gastrointestinal: Denies: Abdominal pain, Nausea, Vomiting, Diarrhea, Melena, Hematochezia Genitourinary: Denies: Dysuria, Hematuria, Frequency Musculoskeletal: Reports: Extremity Pain. Denies: Back pain Skin: Denies: Rash, Wounds Neurological: Denies: Headache, Weakness, Numbness Physical Exam Vital Signs/Narrative: Vital Signs Temp Pulse Resp BP Pulse Ox 01/13/20 12:20 98.2 F 85 17 165/95 H 100 General: Well nourished, Well developed, No Acute Distress Head: Normocephalic, Atraumatic Eyes: Perrl, EOMI ENT: Moist mucous membranes, No rhinorrhea Neck: Supple, Nontender Cardiovascular: Regular rate, Regular rhythm, No murmurs Respiratory: No distress, CTA bilaterally, Chest nontender Abdomen: Soft, Nontender, Nondistended, Normal bowel sounds Back: Nontender, Normal Inspection Extremities: Tenderness - right knee anteriorly, mild abrasion. NVID. Compartments soft. No instability. Skin: Normal color, No rash Neurological: Alert, Oriented x3, Cranial nerves II-XII grossly intact, Normal Strength, Normal Sensation Psychological: Normal affect, Normal Mood Diagnostic/Tx/Re-eval - Medical Decision Making Right knee x-ray reveals a tiny joint effusion. Has no instability and no evidence of a complete tear. Her pain was addressed. I feel that she can safely be discharged home with orthopedics follow-up. ED Disposition - Plan for ED Patient: Disposition: Home or Assisted Living Diagnosis: Contusion of right knee, Effusion, right knee Instructions: Contusions (Bruises) Referrals: Edmund Shah MD [STAFF PHYSICIAN] -
[2020-01-13 13:22] VITALS: BP 112/77; PULSE 68; RESP 15; O2SAT 98
== END 2020-01-13 13:40 | disposition home or self-care (01) ==
PROVIDERS: Emergency Provider Emergency Medicine; PCP Family Medicine
DX: S80.01XA Contusion of right knee, initial encounter (principal); M25.461 Effusion, right knee; S80.211A Abrasion, right knee, initial encounter; W10.1XXA Fall (on)(from) sidewalk curb, initial encounter; Y93.9 Activity, unspecified; Y92.9 Unspecified place or not applicable
CPT/HCPCS: 73560; 99284

== ENCOUNTER → 2020-03-02 09:59 | Outpatient (REF) | payer MEDICARE, MEDICAID, SELFPAY | LOC: MTDU 09:59 | PROVIDERS: PCP Family Medicine; Visit Provider Family Medicine | DX: Z03.818 Encounter for observation for suspected exposure to other biological agents ruled out (principal); E11.9 Type 2 diabetes mellitus without complications; I10 Essential (primary) hypertension; R19.7 Diarrhea, unspecified; R68.83 Chills (without fever); M79.10 Myalgia, unspecified site | CPT/HCPCS: 87635; G2023; U0004 ==

== ENCOUNTER 2020-04-14 22:00 | Emergency (ER) | payer MEDICARE, MEDICAID, SELFPAY ==
[2020-04-14 22:01] VITALS: BP 175/89; PULSE 68; RESP 15; TEMP 36.6; O2SAT 100; BMI 38.2
--- NOTE | 2020-04-14 22:16 | ED.DCSUM_ITS ---
History of Present Illness Chief Complaint: Upper Extremity Injury Informant: Patient Narrative: Presents with left scapula pain. She lost her balance while getting her mail earlier today. She fell on her left shoulder blade. She has pain in her shoulder blade. She does not have any pain in the shoulder itself. No front clavicle pain. Current severity is moderate. Worse by movement. She took Tylenol earlier today. No previous injury. - Past Medical History (1) Chest pain Status: Acute (2) Anxiety and depression Status: Chronic (3) Diabetes mellitus, type II Status: Chronic (4) Former tobacco use Status: Chronic (5) HLD (hyperlipidemia) Status: Chronic (6) HTN (hypertension) Status: Chronic (7) Hypothyroidism Status: Chronic (8) Obesity Status: Chronic Past Medical History - Allergies and Home Meds Allergies/Adverse Reactions: Allergies Bleach (Sodium Hypochlorite) Allergy (Severe, Verified 01/13/20 12:19) HIVES Penicillins Allergy (Verified 01/13/20 12:19) Rash Sulfa (Sulfonamide Antibiotics) Adverse Reaction (Verified 01/13/20 12:19) Nausea/Vom/Diarrhea Primary Care Physician: Ranjeet Shine MD [Primary Care Provider] - Prior records reviewed: Yes Past Medical History: - - See problem list Surgical History: noncontributory, - - Hysterectomy, cataract surgery. Smoking Status: Never smoker Alcohol: None Drugs: None - Family History Maternal Family History: Family History (Last Reviewed 04/01/19 @ 10:03 by Rita Gusman) Other ANGINA Anxiety Arthritis Blood clotting disorder Bowel disease Breast cancer CVA (cerebral vascular accident) Cancer Colon cancer Depression Diabetes Heart disease Hyperlipidemia Hypertension Melanoma Mental disorder Myocardial infarction Osteoporosis Ovarian cancer Parkinsons disease Thyroid disorder Family History: Reports: - - Patient notes a maternal and paternal family history of hypertension, hyperlipidemia, diabetes. Paternal Family History: Family History (Last Reviewed 04/01/19 @ 10:03 by Rita Gusman) Other ANGINA Anxiety Arthritis Blood clotting disorder Bowel disease Breast cancer CVA (cerebral vascular accident) Cancer Colon cancer Depression Diabetes Heart disease Hyperlipidemia Hypertension Melanoma Mental disorder Myocardial infarction Osteoporosis Ovarian cancer Parkinsons disease Thyroid disorder Family History: Reports: - - Patient notes a maternal and paternal family history of hypertension, hyperlipidemia, diabetes. Review of Systems General: Denies: Chills, Fever, Sweats Eyes: Denies: Visual changes - bilaterally, Diplopia ENT: Denies: Rhinorrhea, Sore throat Cardiovascular: Denies: Chest pain, Palpitations Respiratory: Denies: Dyspnea, Cough, Dyspnea on exertion Gastrointestinal: Denies: Abdominal pain, Nausea, Vomiting, Diarrhea, Melena, Hematochezia Genitourinary: Denies: Dysuria, Hematuria, Frequency Musculoskeletal: Reports: Back pain - Left scapula pain. Denies: Extremity Pain Skin: Denies: Rash, Wounds Neurological: Denies: Headache, Weakness, Numbness Physical Exam Vital Signs/Narrative: Vital Signs Temp Pulse Resp BP Pulse Ox 04/14/20 22:01 97.8 F 68 15 175/89 H 100 General: Well nourished, Well developed, No Acute Distress Head: Normocephalic, Atraumatic Eyes: Perrl, EOMI ENT: Moist mucous membranes, No rhinorrhea Neck: Supple, Nontender Cardiovascular: Regular rate, Regular rhythm, No murmurs Respiratory: No distress, CTA bilaterally, Chest nontender Abdomen: Soft, Nontender, Nondistended, Normal bowel sounds Back: Normal Inspection, - - Tender to palpation left scapula without contusion deformity soft tissue swelling or erythema. Extremities: Nontender, No edema Skin: Normal color, No rash Neurological: Alert, Oriented x3, Cranial nerves II-XII grossly intact, Normal Strength, Normal Sensation Psychological: Normal affect, Normal Mood Diagnostic/Tx/Re-eval - Medical Decision Making Given ice and ibuprofen. X-ray of the left scapula obtained. Left scapula x- ray normal. At this time I feel the patient has a contusion to her scapula. She will take anti-inflammatories and follow-up ED Disposition - Plan for ED Patient: Disposition: Home or Assisted Living Diagnosis: Contusion of scapula, left Instructions: ED Contusion Shoulder Referrals: Ranjeet Shine MD [Primary Care Provider] -
--- NOTE | 2020-04-14 22:58 | RAD_ITS ---
STUDY: X-RAY - LEFT SCAPULA REASON FOR EXAM: Female, 55 years old. FELL BACK FROM STANDING POSITION ONTO LEFT SHOULDER; PAIN IN SCAPULA TECHNIQUE: 2 view(s) of the scapula were obtained. COMPARISON: None. FINDINGS: Normal scapula, including the osseous glenoid rim, acromion, scapular neck, spine, coracoid process, and visualized body. Normal glenohumeral articulation. Normal acromioclavicular joint. Normal visualized humeral head. Normal visualized pulmonary apex. RAD/Scapula IMPRESSION: Normal plain film x-ray examination of the scapula. Electronically Signed: Mio Bonner MD at 23:28 EDT , Service support ,
[2020-04-14] MEDS: Ibuprofen 600 MG Tablet PO (23:13)
[2020-04-15 00:07] VITALS: BP 164/73; PULSE 75; RESP 18; O2SAT 95
== END 2020-04-15 00:07 | disposition home or self-care (01) ==
PROVIDERS: Emergency Provider Emergency Medicine; PCP Family Medicine
DX: S40.012A Contusion of left shoulder, initial encounter (principal); W19.XXXA Unspecified fall, initial encounter; Y93.9 Activity, unspecified; Y92.9 Unspecified place or not applicable; Y99.9 Unspecified external cause status; E11.9 Type 2 diabetes mellitus without complications; E78.5 Hyperlipidemia, unspecified; I10 Essential (primary) hypertension; E03.9 Hypothyroidism, unspecified; F32.9 Major depressive disorder, single episode, unspecified; F41.9 Anxiety disorder, unspecified; E66.9 Obesity, unspecified; Z79.82 Long term (current) use of aspirin; Z79.4 Long term (current) use of insulin; Z79.899 Other long term (current) drug therapy; Z87.891 Personal history of nicotine dependence
CPT/HCPCS: 73010; 99283

== ENCOUNTER → 2020-05-02 08:40 | Outpatient (CLI) | payer MEDICARE, SELFPAY ==
[2020-04-14 22:01] VITALS: BMI 38.2
[2020-05-02 09:43] LABS: Absolute Lymphocyte Count 2.08 X10^3/uL (0.83-4.51); Absolute Neutrophil Count 4.1 X10^3/uL (2.0-7.7); Basophil# 0.03 X10^3/uL; Basophil% 0.4 % (0-1); Eosinophil# 0.18 X10^3/uL; Eosinophils% 2.5 % (0-5); Hematocrit 41.5 % (37-47); Hemoglobin 12.4 g/dL (12.0-15.0); Lymphocyte # 2.08 X10^3/ul (4.0); Lymphocyte % 29.3 % (19-41); Mean Corp Hgb Conc 29.9 g/dL (32-36); Mean Corpuscular Hgb 25.9 pg (27.0-32.0); Mean Corpuscular Volume 86.8 fL (81-99); Mean Platelet Vol. 9.5 fl (6.2-12.0); Monocyte# 0.74 X10^3/uL; Monocyte% 10.4 % (0-10); NRBC Flagged by Analyzer 0 % (0-5); Neutrophil # 4.06 X10^3/uL (2.7-7.7); Neutrophil % 57.1 % (47-70); Platelet Count 227 K/mm3 (150-450); RBC Distribution Width CV 16.7 % (11.6-14.6); Red Blood Count 4.78 M/mm3 (4.2-5.4); White Blood Count 7.1 K/mm3 (4.4-11.0)
[2020-05-02 10:04] LABS: Hemoglobin A1c 6.5 % (3.8-5.6)
[2020-05-02 10:05] LABS: Microalbumin,Random Urine 63.1 mg/L (NO RANGE EST.); Microalbumin:Creatinine Ratio 31.9 mg/g CRE (<30 mg/g CRE)
[2020-05-02 10:37] LABS: Vitamin B12 915 pg/mL (211-911)
[2020-05-02 10:48] LABS: ALB/GLOB Ratio 0.8 RATIO (0.9-2.4); AST(SGOT) 9 U/L (15-37); Alanine Aminotransfer ALT/SGPT 16 U/L (13-56); Albumin, Serum 3.1 g/dL (3.2-5.0); Alkaline Phosphatase 57 U/L (45-117); Anion Gap 5 (5-15); BUN 21 mg/dL (7-18); BUN/Creat Ratio 25.3 RATIO (10-20); Calcium,Total 8.3 mg/dL (8.5-10.1); Chloride 107 mmol/L (98-107); Cholesterol 158 mg/dL (200); Creatinine, Serum 0.83 mg/dL (0.55-1.02); EST Glomerular Filtration Rate 76 mL/min (>60); Est Glom Filt Rate - Afr Amer 92 mL/min (>60); Glucose 70 mg/dL (74-106); High Density Lipoprotein 45 mg/dL; Potassium 3.8 mmol/L (3.5-5.1); Protein, Total 7.1 g/dL (6.4-8.2); Sodium Level 141 mmol/L (136-145); Thyroid Stim Hormone (TSH) 2.33 uIU/mL (0.358-3.74); Triglycerides 227 mg/dL; Very Low Density Lipoprotein 45 mg/dL (5-40)
== END ==
PROVIDERS: PCP Family Medicine; Referring Provider Family Medicine; Visit Provider Family Medicine
DX: E11.65 Type 2 diabetes mellitus with hyperglycemia (principal); E03.9 Hypothyroidism, unspecified; E53.8 Deficiency of other specified B group vitamins
CPT/HCPCS: 36415; 80053; 80061; 82043; 82570; 82607; 83036; 84443; 85025

== ENCOUNTER 2020-05-30 18:50 | Observation (INO) | payer MEDICARE, MEDICAID, SELFPAY ==
[2020-05-30 18:51] VITALS: BP 164/99; PULSE 69; RESP 20; TEMP 36.9; O2SAT 100; BMI 35.2
--- NOTE | 2020-05-30 19:43 | EKG12_ITS ---
Test Reason : CP Blood Pressure : / mmHG Vent. Rate : 070 BPM Atrial Rate : 070 BPM P-R Int : 136 ms QRS Dur : 064 ms QT Int : 362 ms P-R-T Axes : 054 062 090 degrees QTc Int : 390 ms Normal sinus rhythm Nonspecific ST abnormality Abnormal ECG Confirmed by MITCHEL MARIA, JUANJOSE ([id number]), map editor ALEXIS HAWK ([id number]) on 06/04/2020 9:29:21 AM Referred By: Juan Pablo Giron Confirmed By:NICCI GRULLON MD
--- NOTE | 2020-05-30 19:45 | ED.DCSUM_ITS ---
History of Present Illness Chief Complaint: General Illness Detail of Chief Complaint: Chest pain, back pain, left arm numbness Informant: Patient Onset: Today Current Severity: Moderate Maximum Severity: Severe Narrative: Patient presents with chest tightness, left arm pain, low back pain that started around 5 PM this evening. She was sitting and crocheting at the time of onset. Pain does not radiate into her legs. Patient does report some shortness of breath and cough today. No known fever. - Past Medical History (1) Anxiety and depression Status: Chronic (2) Diabetes mellitus, type II Status: Chronic (3) HLD (hyperlipidemia) Status: Chronic (4) HTN (hypertension) Status: Chronic (5) Hypothyroidism Status: Chronic Past Medical History - Allergies and Home Meds Allergies/Adverse Reactions: Allergies Bleach (Sodium Hypochlorite) Allergy (Severe, Verified 05/30/20 18:56) HIVES Penicillins Allergy (Verified 05/30/20 18:56) Rash Sulfa (Sulfonamide Antibiotics) Adverse Reaction (Verified 05/30/20 18:56) Nausea/Vom/Diarrhea Primary Care Physician: Ranjeet Shine MD [Primary Care Provider] - Prior records reviewed: Yes Surgical History: noncontributory, - - Hysterectomy, cataract surgery. Smoking Status: Never smoker - Family History Maternal Family History: Family History (Last Reviewed 04/01/19 @ 10:03 by Rita Gusman) Other ANGINA Anxiety Arthritis Blood clotting disorder Bowel disease Breast cancer CVA (cerebral vascular accident) Cancer Colon cancer Depression Diabetes Heart disease Hyperlipidemia Hypertension Melanoma Mental disorder Myocardial infarction Osteoporosis Ovarian cancer Parkinsons disease Thyroid disorder Family History: Reports: - - Patient notes a maternal and paternal family history of hypertension, hyperlipidemia, diabetes. Paternal Family History: Family History (Last Reviewed 04/01/19 @ 10:03 by Rita Gusman) Other ANGINA Anxiety Arthritis Blood clotting disorder Bowel disease Breast cancer CVA (cerebral vascular accident) Cancer Colon cancer Depression Diabetes Heart disease Hyperlipidemia Hypertension Melanoma Mental disorder Myocardial infarction Osteoporosis Ovarian cancer Parkinsons disease Thyroid disorder Family History: Reports: - - Patient notes a maternal and paternal family history of hypertension, hyperlipidemia, diabetes. Review of Systems General: Denies: Chills, Fever Eyes: Denies: Visual changes - bilaterally ENT: Denies: Bilateral ear pain Cardiovascular: Reports: Chest pain Respiratory: Reports: Dyspnea, Cough Gastrointestinal: Denies: Abdominal pain, Vomiting, Diarrhea Musculoskeletal: Reports: Extremity Pain Skin: Denies: Rash, Wounds Neurological: Reports: Parasthesia Hematologic: Denies: Easy bruising, Easy bleeding Allergy: Denies: Uticaria Physical Exam Vital Signs/Narrative: Vital Signs Temp Pulse Resp BP Pulse Ox 05/30/20 18:51 98.4 F 69 20 H 164/99 H 100 Inital Vital Signs reviewed: Yes General: Well nourished, Well developed Head: Normocephalic ENT: Moist mucous membranes Neck: Supple Cardiovascular: Regular rate, Regular rhythm Respiratory: No distress, CTA bilaterally Abdomen: Soft, Nontender Extremities: - - Left arm tenderness to palpation. Palpable pulses are noted throughout. Skin: Normal color Neurological: Alert, Oriented x3 Psychological: - - Anxious Diagnostic/Tx/Re-eval Impressions Chest CTA 05/30/20 19:47 IMPRESSION: 1. No aortic aneurysm or dissection. 2. No bowel obstruction or abnormal dilatation. No free air or free fluid. Electronically Signed: Jose Chua MD at 21:51 EDT , Service support , Abdomen/Pelvis CTA 05/30/20 19:48 IMPRESSION: Unremarkable CTA chest examination, without a demonstrated pulmonary embolism or arterial dissection. Electronically Signed: Jose Chua MD at 21:08 EDT , Service support , Chest X-Ray 05/30/20 20:03 IMPRESSION: No acute process Electronically Signed: Jose Chua MD at 20:57 EDT , Service support , 05/30/20 19:47 CTA Chest W/WO Contrast [CT] Stat 05/30/20 19:48 CT ANGIO ABD&PEL W/O&W/DYE [CT] Stat 05/30/20 20:03 Chest 1 View (Portable) [RAD] Stat Laboratory Results 05/30/20 05/30/20 05/30/20 19:20 19:20 19:20 WBC 9.1 RBC 5.34 Hgb 14.2 Hct 45.2 MCV 84.6 MCH 26.6 L MCHC 31.4 L RDW Std Deviation 50.1 H RDW Coeff of Lidia 16.3 H Plt Count 315 MPV 10.4 Immature Gran % (Auto) 0.300 Neut % (Auto) 64.7 Lymph % (Auto) 21.1 [place] % (Auto) 11.6 H Eos % (Auto) 2.0 Baso % (Auto) 0.3 Absolute Neuts (auto) 5.9 Absolute Lymphs (auto) 1.91 Nucleated RBC % 0 PT 12.4 INR 1.0 APTT 30.5 D-Dimer Quant (PE/DVT) 0.75 H* Sodium 140 Potassium 4.3 Chloride 109 H Carbon Dioxide 25.0 Anion Gap 6 BUN 28 H Creatinine 1.12 H Estim Creat Clear Calc 41.73 Est GFR (MDRD) Af Amer 65 Est GFR (MDRD) Non-Af 54 L BUN/Creatinine Ratio 25.0 H Glucose 103 Calcium 9.2 Troponin I < 0.015 - EKG Initial EKG Interpretation: Sinus Rhythm - Sinus at 70 with no acute ischemia. - Medical Decision Making Patient is initially given morphine and Zofran. She was quite hypertensive on my initial evaluation with systolic pressure of 210. I had ordered labetalol, however when the nurse went to give it repeat blood pressure was in the 150s systolic and this was held. With the patient having chest, arm, and back pain with significantly elevated blood pressure my initial concern was for aortic dissection. CTA of the chest abdomen pelvis does not reveal any evidence of this. Initial troponin is negative. At this time I will speak with hospitalist regarding admission for cardiac rule out. She will be given aspirin. ED Disposition - Plan for ED Patient: Disposition: Acute Care Hospital [facility] Diagnosis: Chest pain Referrals: Ranjeet Shine MD [Primary Care Provider] -
--- NOTE | 2020-05-30 19:47 | CT_ITS ---
STUDY: CTA CHEST REASON FOR EXAM: Female, 55 years old. PT STATED CHEST PAIN, LOWER MID BACK PAIN, R/O DISSECTION RADIATION DOSAGE (If Supplied By Facility): CTDIvol = ( 14.53 ) mGy, DLP = ( 1095.73 ) mGycm TECHNIQUE: The examination was performed with the intravenous administration of 100ML ISOVUE 370. Post-processing of the angiographic images was performed, with multiplanar reformation and 3D reconstruction. Individualized dose optimization techniques were used for this CT. COMPARISON: Chest CTA dated June 28, 2019. FINDINGS: Normal enhancement of the main pulmonary artery and right and left pulmonary arteries. Normal enhancement of the bilateral peripheral pulmonary arteries. There is no demonstrated pulmonary embolism. There is atherosclerotic calcification of the aortic arch with tortuosity. There is no demonstrated aortic dissection. Normal heart size and pericardium. Normal mediastinum. Normal hilar regions. Normal visualized trachea and bronchi. The lungs are well expanded. Normal pulmonary parenchyma. No visualized consolidation or pulmonary edema or pleural effusion. Normal pleura. Normal chest wall structures. There are degenerative changes of thoracic spine. Normal visualized upper abdomen. IMPRESSION: Unremarkable CTA chest examination, without a demonstrated pulmonary embolism or arterial dissection. Electronically Signed: Jose Chua MD at 21:08 EDT , Service support , STUDY: CTA OF THE ABDOMEN AND PELVIS REASON FOR EXAM: Female, 55 years old. PT STATED CHEST PAIN, LOWER MID BACK PAIN, R/O DISSECTION RADIATION DOSAGE (If Supplied By Facility): CTDIvol = ( ) mGy, DLP = ( ) mGycm TECHNIQUE: Axial CT angiography multi-detector data acquisition was obtained from the following intravenous administration of 100ML ISOVUE 370. Axial images and MIP images were reconstructed from the axial data set. Post-processing of the angiographic images was performed, with multiplanar reformation and 3D reconstruction. Individualized dose optimization techniques were used for this CT. TECHNICAL QUALITY: Good COMPARISON: CT of abdomen and pelvis dated MARCH 29 2012. CTA of the chest dated May 30, 2020. Descriptors of Narrowing: None (0%) Mild (< 50%) Moderate (50-70%) Severe (70-90%) Subtotal/Total Occlusion (90-100%) Non-Evaluable (technically non-diagnostic FINDINGS: Abdominal aorta: No demonstrated narrowing. No demonstrated dissection of the aorta no atherosclerotic plaque is present. Celiac and superior mesenteric arteries: Mild apical sclerotic plaque is present at the origin. No demonstrated narrowing. Inferior mesenteric artery: No demonstrated narrowing. Right renal artery(arteries): No demonstrated narrowing. Left renal artery(arteries): No demonstrated narrowing. Right common iliac artery: No demonstrated narrowing. Right external iliac artery: No demonstrated narrowing. Right internal iliac artery: No demonstrated narrowing. Left common iliac artery: No demonstrated narrowing. Left external iliac artery: No demonstrated narrowing. Left internal iliac artery: No demonstrated narrowing. NONVASCULAR FINDINGS: The visualized lung bases are unremarkable. Normal liver. Normal gallbladder and extrahepatic biliary system. Normal spleen. Normal pancreas. Normal bilateral adrenal glands. There is mild cortical atrophy of the right kidney, consistent with chronic medical renal disease. There is mild cortical atrophy of the left kidney, consistent with chronic medical renal disease. Normal visualized stomach. Normal small intestine. Normal colon. The appendix is visualized and appears normal. No bowel obstruction or abnormal dilatation. No free air or free fluid. Normal abdominal aorta. Normal inferior vena cava. Normal retroperitoneum. Normal urinary bladder. Normal abdominal wall. There are diffuse degenerative changes of the visualized lumbar spine. CT/CTA Chest W/WO Contrast IMPRESSION: 1. No aortic aneurysm or dissection. 2. No bowel obstruction or abnormal dilatation. No free air or free fluid. Electronically Signed: Jose Chua MD at 21:51 EDT , Service support ,
--- NOTE | 2020-05-30 19:48 | CT_ITS ---
STUDY: CTA CHEST REASON FOR EXAM: Female, 55 years old. PT STATED CHEST PAIN, LOWER MID BACK PAIN, R/O DISSECTION RADIATION DOSAGE (If Supplied By Facility): CTDIvol = ( 14.53 ) mGy, DLP = ( 1095.73 ) mGycm TECHNIQUE: The examination was performed with the intravenous administration of 100ML ISOVUE 370. Post-processing of the angiographic images was performed, with multiplanar reformation and 3D reconstruction. Individualized dose optimization techniques were used for this CT. COMPARISON: Chest CTA dated June 28, 2019. FINDINGS: Normal enhancement of the main pulmonary artery and right and left pulmonary arteries. Normal enhancement of the bilateral peripheral pulmonary arteries. There is no demonstrated pulmonary embolism. There is atherosclerotic calcification of the aortic arch with tortuosity. There is no demonstrated aortic dissection. Normal heart size and pericardium. Normal mediastinum. Normal hilar regions. Normal visualized trachea and bronchi. The lungs are well expanded. Normal pulmonary parenchyma. No visualized consolidation or pulmonary edema or pleural effusion. Normal pleura. Normal chest wall structures. There are degenerative changes of thoracic spine. Normal visualized upper abdomen. CT/CT ANGIO ABD&PEL W/O&W/DYE IMPRESSION: Unremarkable CTA chest examination, without a demonstrated pulmonary embolism or arterial dissection. Electronically Signed: Jose Chua MD at 21:08 EDT , Service support ,
[2020-05-30] MEDS: Morphine 4 MG/ML Syringe IV (19:50)
[2020-05-30] MEDS: Ondansetron 4 MG/2 ML Vial IV (19:51)
[2020-05-30] MEDS: 0.9% Normal Saline 1,000 ML 15 ML IV (19:51)
[2020-05-30 20:01] LABS: Absolute Lymphocyte Count 1.91 X10^3/uL (0.83-4.51); Absolute Neutrophil Count 5.9 X10^3/uL (2.0-7.7); Basophil# 0.03 X10^3/uL; Basophil% 0.3 % (0-1); Eosinophil# 0.18 X10^3/uL; Hematocrit 45.2 % (37-47); Hemoglobin 14.2 g/dL (12.0-15.0); Lymphocyte # 1.91 X10^3/ul (4.0); Lymphocyte % 21.1 % (19-41); Mean Corp Hgb Conc 31.4 g/dL (32-36); Mean Corpuscular Hgb 26.6 pg (27.0-32.0); Mean Corpuscular Volume 84.6 fL (81-99); Mean Platelet Vol. 10.4 fl (6.2-12.0); Monocyte# 1.05 X10^3/uL; Monocyte% 11.6 % (0-10); NRBC Flagged by Analyzer 0 % (0-5); Neutrophil # 5.86 X10^3/uL (2.7-7.7); Neutrophil % 64.7 % (47-70); Platelet Count 315 K/mm3 (150-450); RBC Distribution Width CV 16.3 % (11.6-14.6); RBC Distribution Width SD 50.1 fl (35.1-43.9); Red Blood Count 5.34 M/mm3 (4.2-5.4); White Blood Count 9.1 K/mm3 (4.4-11.0)
--- NOTE | 2020-05-30 20:03 | RAD_ITS ---
STUDY: X-RAY CHEST REASON FOR EXAM: Female, 55 years old. LOW BLOOD SUGAR TECHNIQUE: Single AP portable view of the chest. COMPARISON: November 25 2019 FINDINGS: The lungs are clear and expanded. There is no demonstrated pleural abnormality. Normal size heart. Normal mediastinum and skinny. Normal visualized pulmonary arteries. Stable osseous structures. RAD/Chest 1 View (Portable) IMPRESSION: No acute process Electronically Signed: Jose Chua MD at 20:57 EDT , Service support ,
[2020-05-30 20:07] LABS: Partial Thromboplast Time 30.5 Seconds (24.1-36.2)
[2020-05-30 20:08] LABS: Prothrombin Time (Protime)PT. 12.4 SECONDS (11.7-14.9)
[2020-05-30 20:12] VITALS: BP 137/64; PULSE 74; RESP 18
[2020-05-30 20:12] LABS: Anion Gap 6 (5-15); BUN 28 mg/dL (7-18); Calcium,Total 9.2 mg/dL (8.5-10.1); Chloride 109 mmol/L (98-107); Creatinine, Serum 1.12 mg/dL (0.55-1.02); EST Glomerular Filtration Rate 54 mL/min (>60); Est Glom Filt Rate - Afr Amer 65 mL/min (>60); Estimated Creatinine Clearance 41.73 ml/min; Glucose 103 mg/dL (74-106); Potassium 4.3 mmol/L (3.5-5.1); Sodium Level 140 mmol/L (136-145)
--- NOTE | 2020-05-30 20:14 | NURSING ---
PER DR GALLO, DO NOT GIVE TRANDATE AT THIS TIME. IF SBP >170 NOTIFY HER.
[2020-05-30 20:33] LABS: D-Dimer Quantitative (DVT/PE) 0.75 FEU/ug/m (0.27-0.49)
[2020-05-30 21:32] VITALS: BP 136/66; PULSE 72; RESP 11; O2SAT 97
--- NOTE | 2020-05-30 22:02 | ED.RN ---
notified pt states her left arm in numb. acknowledges pt statement
--- NOTE | 2020-05-30 22:47 | PCM.HP.STD ---
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: with alf use Diabetes mellitus complication status: with unspecified complications (5) Anxiety and depression Status: Chronic (6) Obesity Status: Chronic Qualifiers: Obesity type: due to excess calories Obesity classification: adult class 2 (BMI 35 - 39.9) (7) Hypothyroidism Status: Chronic Qualifiers: Hypothyroidism type: unspecified Qualified Code(s): E03.9 - Hypothyroidism, unspecified (8) Former tobacco use Status: Chronic History of Present Illness Date of Admission: 05/29/20 Chief Complaint: chest pain The patient is a 55 year old F with a significant history of diabetes; hypertension and GERD who presents to the emergency department with chest pain. She rated her chest pain as 6 out of 4. Her chest pain was dull. Her chest pain radiated to her left arm where she had numbness. Coughing aggravated the chest pain. She denies any ameliorating factors. Her chest pain started after hypoglycemic episode where her blood glucose in the 60s. With her hypoglycemic episode she felt clammy. She took 2 glucose tablets. All symptoms have been few hours before presentation. Past Medical History Past Medical History (Chronic Problems): Chronic Problems HTN (hypertension) (Chronic) HLD (hyperlipidemia) (Chronic) Diabetes mellitus, type II (Chronic) Anxiety and depression (Chronic) Obesity (Chronic) Hypothyroidism (Chronic) Former tobacco use (Chronic) Medical History: Medical History (Last Reviewed 05/31/20 @ 01:[address] Juan Pablo Giron MD) Arthritis M19.90 Back problem M53.9 Cataracts, bilateral H26.9 Diabetes E11.9 GERD (gastroesophageal reflux disease) K21.9 Hearing problem H91.90 High triglycerides E78.1 History of migraine headaches Z86.69 Hyperlipidemia E78.5 Neuropathy G62.9 Seasonal allergies J30.2 Vision problems H54.7 Hypertension I10 Allergies Bleach (Sodium Hypochlorite) Allergy (Severe, Verified 05/30/20 18:56) HIVES Penicillins Allergy (Verified 05/30/20 18:56) Rash Sulfa (Sulfonamide Antibiotics) Adverse Reaction (Verified 05/30/20 18:56) Nausea/Vom/Diarrhea Home Medications: Ambulatory Orders Medication Instructions Recorded Atenolol [Tenormin (beta belkys)] 100 mg PO DAILY 02/24/18 Atorvastatin Calcium [Lipitor] 20 mg PO QHS 02/24/18 Duloxetine Hcl [Cymbalta] 60 mg PO DAILY 02/24/18 Empagliflozin [Jardiance] 10 mg PO DAILY 02/24/18 Estradiol [Estrace] 1 mg PO DAILY 02/24/18 Levothyroxine [Synthroid] 50 mcg PO DAILY 02/24/18 Lisinopril [Zestril] 20 mg PO DAILY 02/24/18 Meloxicam [Mobic] 15 mg PO DAILY 02/24/18 Pioglitazone [Actos] 45 mg PO DAILY 02/24/18 Sitagliptin Phosphate [Januvia] 100 mg PO DAILY 02/24/18 metFORMIN HCl [Glucophage] 1,000 mg PO BIDCM 02/24/18 Insulin Glargine [Lantus SoloStar 34 unit SQ DAILY 11/27/18 Pen] Aspirin [Aspirin, Baby] 81 mg PO BID 02/17/19 cholecalciferol (vitamin D3) 50 2,000 unit PO DAILY 04/01/19 mcg (2,000 unit) capsule pantoprazole 40 mg tablet,delayed 40 mg PO BID tab 04/01/19 release Nitrofurantoin Macrocrystals 100 mg PO Q12 #14 cap 04/04/19 [Macrobid] Nystatin Powder [Mycostatin Powder] 1 applic TOPICAL TID #1 bottle 04/04/19 Naproxen [Naprosyn] 500 mg PO BID PRN #20 tab 06/20/19 Surgical History: Surgical History (Last Reviewed 05/31/20 @ 01:[address] Juan Pablo Giron MD) H/O: hysterectomy Z90.710 History of cataract surgery Z98.49 Surgical History: - - Hysterectomy, cataract surgery. 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 Juan Pablo Giron MD) Other ANGINA Anxiety Arthritis Blood clotting disorder Bowel disease Breast cancer CVA (cerebral vascular accident) Cancer Colon cancer Depression Diabetes Heart disease Hyperlipidemia Hypertension Melanoma Mental disorder Myocardial infarction Osteoporosis Ovarian cancer Parkinsons disease Thyroid disorder History Items: - - Patient notes a maternal and paternal family history of hypertension, hyperlipidemia, diabetes. Paternal Family History: Family History (Last Reviewed 05/31/20 @ 01:[address] Juan Pablo Giron MD) Other ANGINA Anxiety Arthritis Blood clotting disorder Bowel disease Breast cancer CVA (cerebral vascular accident) Cancer Colon cancer Depression Diabetes Heart disease Hyperlipidemia Hypertension Melanoma Mental disorder Myocardial infarction Osteoporosis Ovarian cancer Parkinsons disease Thyroid disorder History Items: - - Patient notes a maternal and paternal family history of hypertension, hyperlipidemia, diabetes. Review of Systems Constitutional: Denies: Chills, Fever, Weight Change HEENT: Denies: Head Aches, Sinus Congestion, Sinus Drainage Cardiovascular: Reports: Chest Pain. Denies: Palpitations Respiratory: Denies: Cough, Shortness of breath at rest, Sputum production Gastrointestinal: Reports: Nausea. Denies: Abdominal Pain, Vomiting Genitourinary: Denies: Dysuria Musculoskeletal: Denies: Joint Pain, Joint Tenderness Skin: Denies: Rash, Wounds Neurological: Reports: Numbness - left arm. Denies: Focal weakness, Tingling Psychiatric: Denies: Anxiety, Depression, Homicidal Ideations, Suicidal Ideations Hematologic/ Lymphatic: Denies: Easy Bruising, Easy Bleeding VTE Information - Inpt Only VTE Present on Admission: No VTE Mechan Device Prophylaxis: SCD's, None VTE Pharm Prophylaxis ordered?: No Patient Problems: Active and Suspected Problems (Last Reviewed 05/31/20 @ 00:[address] Juan Pablo Giron MD) Chest pain (Acute) - Physical Exam Vitals/I&O's: Vital Signs Temp Pulse Resp BP Pulse Ox 98.4 F 72 11 L 136/66 H 97 05/30/20 18:51 05/30/20 21:32 05/30/20 21:32 05/30/20 21:32 05/30/20 21:32 Oxygen Delivery Method Room Air Weight: 81.647 kg Body Mass Index (BMI) 35.2 General: Alert, Oriented x3, Cooperative HEENT: Atraumatic, PERRLA, EOMI, Normocephalic Neck: Supple, No JVD, Negative Carotid Bruits Lungs: Clear to auscultation, Normal air movement, No rhonchi, No wheeze, No rales Cardiovascular: Regular rate, Regular Rhythm, Normal S1, Normal S2, No murmurs Abdomen: Bowel Sounds Present, Soft, Non Tender Extremities: No edema, Capillary Refill Less than 3 Seconds Skin: No rashes, No breakdown Musculoskeletal: No Tenderness to Palpation of Joints or Extremities Neurological: Cranial nerves II-XII grossly intact Psych/Mental Status: Normal Affect, Appropriate Laboratory Results 05/30/20 19:20: WBC 9.1, RBC 5.34, Hgb 14.2, Hct 45.2, MCV 84.6, MCH 26.6 L, MCHC 31.4 L, RDW Std Deviation 50.1 H, RDW Coeff of Lidia 16.3 H, Plt Count 315, MPV 10.4, Immature Gran % (Auto) 0.300, Neut % (Auto) 64.7, Lymph % (Auto) 21.1, [place] % (Auto) 11.6 H, Eos % (Auto) 2.0, Baso % (Auto) 0.3, Absolute Neuts (auto) 5.9, Absolute Lymphs (auto) 1.91, Nucleated RBC % 0 05/30/20 19:20: PT 12.4, INR 1.0, APTT 30.5, D-Dimer Quant (PE/DVT) 0.75 H* 05/30/20 19:20: Sodium 140, Potassium 4.3, Chloride 109 H, Carbon Dioxide 25.0, Anion Gap 6, BUN 28 H, Creatinine 1.12 H, Estim Creat Clear Calc 41.73, Est GFR (MDRD) Af Amer 65, Est GFR (MDRD) Non-Af 54 L, BUN/Creatinine Ratio 25.0 H, Glucose 103, Calcium 9.2, Troponin I < 0.015 Current Medications Sodium Chloride () 1,000 mls @ 15 mls/hr IV .Q48H [facility] Last Admin: 05/30/20 19:51 Dose: 15 mls/hr Documented by: Assessment/Plan All Active Problems (Last Reviewed 05/31/20 @ 00:[address] Juan Pablo Giron MD) Chest pain (Acute) The patient is a 55 year old F with a significant history of diabetes; hypertension and GERD who presents to the emergency department with chest pain. Chest pain Place on a monitored bed at the PCU Actual CXR image was independently visualized. No acute cardiopulmonary process was noted. Chest CTA was not remarkable for an aneurysm; dissection or PE. Actual EKG tracing was independently visualized. EKG tracing showed nonspecific ST abnormalities. ASA 81 mg p.o. daily ordered Morphine as needed for pain ordered We will check lipid panel. Statin: Lipitor 20 mg p.o. nightly continued. Serial cardiac enzymes ordered Stat EKG as needed for chest pain Stress test in the AM if the cardiac enzymes are negative Hypoglycemia Monitor blood glucose was 60 at home. At emergency blood glucose was 61. Repeat blood glucose was 112. We will check another blood glucose in 2 hours time. Hold all home hypoglycemic regimen. Accu-Chek every 6 hours with correction scale insulin. The patient is n.p.o. for stress test in a.m. Hypothyroidism Synthroid continued. Depression/anxiety Cymbalta continued. Hypertension On presentation blood pressure was now within goal Atenolol continued Lisinopril continued Trend blood pressure and adjust blood pressure medications. DVT prophylaxis SCD in the setting of cardiac work-up for chest pain. OBSV E&M: 70700 Initial observation care L3
[2020-05-30] MEDS: Aspirin 81 MG TAB.CHEW 324 MG PO (22:55)
[2020-05-30 23:00] VITALS: BP 141/89; BP 154/63; PULSE 63; PULSE 67; RESP 14; TEMP 36.7; O2SAT 96; O2SAT 97
[2020-05-30 23:15] LABS: Bedside Glucose 61 mg/dL (70-110)
[2020-05-31] VITALS (7 sets, daily range): BP systolic 143–147; BP diastolic 69–75; PULSE 55–82; RESP 12–16; TEMP 36.5–36.9; O2SAT 96–100; BMI 38.0; BMI 38.1
--- NOTE | 2020-05-31 00:53 | EKG12_ITS ---
Test Reason : Blood Pressure : / mmHG Vent. Rate : 068 BPM Atrial Rate : 068 BPM P-R Int : 168 ms QRS Dur : 078 ms QT Int : 384 ms P-R-T Axes : 063 011 036 degrees QTc Int : 408 ms Sinus rhythm with Premature atrial complexes Otherwise normal ECG When compared with ECG of 30-MAY-2020 19:01, MANUAL COMPARISON REQUIRED, DATA IS UNCONFIRMED Confirmed by LEONARD MARIA, SENG ([id number]), editorial specialist ALEXIS HAWK ([id number]) on 06/05/2020 11:02:15 AM Referred By: Juan Pablo Giron Confirmed By:SENG VALLE MD
[2020-05-31 01:11] LABS: Bedside Glucose 112 mg/dL (70-110)
[2020-05-31] MEDS: Atorvastatin Calcium 20 MG Tablet PO (01:38)
[2020-05-31 01:46] LABS: Bedside Glucose 124 mg/dL (70-110)
[2020-05-31] MEDS: Nystatin Powder 15gm Bottle 1 APPLIC TOPICAL (06:16)
[2020-05-31] MEDS: Dextrose 50%-Water 25 GM/50 ML DISP.SYRIN IV (06:17)
[2020-05-31] MEDS: Aspirin 81 MG TAB.CHEW PO (06:17)
[2020-05-31] MEDS: Lisinopril 20 MG Tablet PO (06:17)
[2020-05-31] MEDS: Levothyroxine 50 MCG Tablet PO (06:17)
[2020-05-31 06:36] LABS: Bedside Glucose 54 mg/dL (70-110)
[2020-05-31 06:36] LABS: Bedside Glucose 129 mg/dL (70-110)
[2020-05-31 07:30] LABS: Absolute Lymphocyte Count 2.36 X10^3/uL (0.83-4.51); Basophil# 0.03 X10^3/uL; Basophil% 0.4 % (0-1); Eosinophil# 0.17 X10^3/uL; Eosinophils% 2.3 % (0-5); Hematocrit 43.7 % (37-47); Hemoglobin 13.7 g/dL (12.0-15.0); Lymphocyte # 2.36 X10^3/ul (4.0); Lymphocyte % 31.3 % (19-41); Mean Corp Hgb Conc 31.4 g/dL (32-36); Mean Corpuscular Hgb 26.3 pg (27.0-32.0); Mean Corpuscular Volume 83.9 fL (81-99); Mean Platelet Vol. 9.9 fl (6.2-12.0); Monocyte# 0.93 X10^3/uL; Monocyte% 12.4 % (0-10); NRBC Flagged by Analyzer 0 % (0-5); Neutrophil # 4.01 X10^3/uL (2.7-7.7); Neutrophil % 53.2 % (47-70); Platelet Count 262 K/mm3 (150-450); RBC Distribution Width CV 16.1 % (11.6-14.6); RBC Distribution Width SD 49.4 fl (35.1-43.9); Red Blood Count 5.21 M/mm3 (4.2-5.4); White Blood Count 7.5 K/mm3 (4.4-11.0)
[2020-05-31 07:41] LABS: Anion Gap 5 (5-15); BUN 20 mg/dL (7-18); BUN/Creat Ratio 21.4 RATIO (10-20); Calcium,Total 8.5 mg/dL (8.5-10.1); Chloride 107 mmol/L (98-107); Cholesterol 143 mg/dL (200); Creatinine, Serum 0.93 mg/dL (0.55-1.02); EST Glomerular Filtration Rate 67 mL/min (>60); Est Glom Filt Rate - Afr Amer 81 mL/min (>60); Estimated Creatinine Clearance 50.25 ml/min; Glucose 90 mg/dL (74-106); High Density Lipoprotein 43 mg/dL; Potassium 3.6 mmol/L (3.5-5.1); Sodium Level 140 mmol/L (136-145); Triglycerides 168 mg/dL; Very Low Density Lipoprotein 34 mg/dL (5-40)
--- NOTE | 2020-05-31 10:13 | CASEMGMT ---
Addendum entered by Angela Taylor 05/31/20 11:21: SW received a return call from Malathi Lopez. She said that the main contact for patient should be Carter Hernandez. She said this is patient's payee and caregiver. She said this is who staff should call when patient is ready for discharge. She thanked SW for letting her know patient is in the hospital. SW then received another call from Malathi and she spoke with Carter who said she is taking the afternoon of so if patient is discharged today [facility] will need to arrange transportation home. Angela VILLALTA Original Note: Upon review of patient's chart SW noted patient is Developmentally Disabled, she has a payee, and a bilingual patient support caseworker with [employer]. SW called [employer] and left a voice mail for Malathi Lopez letting her know patient is at [facility]. Angela VILLALTA
[2020-05-31] MEDS: DULoxetine Hcl 60 MG Capsule PO (10:41)
[2020-05-31] MEDS: Atenolol 100 MG Tablet PO (10:41)
[2020-05-31] MEDS: Pantoprazole Sodium 40 MG Tablet PO (10:41)
[2020-05-31] MEDS: Estradiol 1 MG Tablet PO (10:41)
[2020-05-31] MEDS: Acetaminophen 325 MG Tablet 650 MG PO (10:53)
[2020-05-31 11:01] LABS: Bedside Glucose 114 mg/dL (70-110)
--- NOTE | 2020-05-31 11:33 | DCINST_ITS ---
- Discharge Diagnoses Current Active Problems: Current Active and Chronic Problems (Last Reviewed 05/31/20 @ 01:[address] Juan Pablo Giron MD) Chest pain (Acute) You will use the following diet at home:: Calorie/Carbohydrate Controlled (specify 1200, 1400, etc) - 1800 josé luis / day, Cardiac Your food should be the consistency of: Regular Your liquids should be the consistency of: Regular/Thin Discharge Activity: Return to Normal Activity Allergies/Adverse Reactions: Allergies Bleach (Sodium Hypochlorite) Allergy (Severe, Verified 05/30/20 18:56) HIVES Penicillins Allergy (Verified 05/30/20 18:56) Rash Sulfa (Sulfonamide Antibiotics) Adverse Reaction (Verified 05/30/20 18:56) Nausea/Vom/Diarrhea Medications to take at Discharge Atenolol [Tenormin (beta belkys)] 100 mg PO DAILY 02/24/18 Atorvastatin Calcium [Lipitor] 20 mg PO QHS 02/24/18 Duloxetine Hcl [Cymbalta] 60 mg PO DAILY 02/24/18 Empagliflozin [Jardiance] 10 mg PO DAILY 02/24/18 Estradiol [Estrace] 1 mg PO DAILY 02/24/18 Levothyroxine [Synthroid] 50 mcg PO DAILY 02/24/18 Lisinopril [Zestril] 20 mg PO DAILY 02/24/18 Meloxicam [Mobic] 15 mg PO DAILY 02/24/18 Pioglitazone [Actos] 45 mg PO DAILY 02/24/18 Sitagliptin Phosphate [Januvia] 100 mg PO DAILY 02/24/18 metFORMIN HCl [Glucophage] 1,000 mg PO BIDCM 02/24/18 Aspirin [Aspirin, Baby] 81 mg PO DAILY 02/17/19 cholecalciferol (vitamin D3) 50 mcg (2,000 unit) capsule 2,000 unit PO DAILY 04/01/19 pantoprazole 40 mg tablet,delayed release 40 mg PO BID tab 04/01/19 Nitrofurantoin Macrocrystals [Macrobid] 100 mg PO Q12 #14 cap 04/04/19 Nystatin Powder [Mycostatin Powder] 1 applic TOPICAL TID #1 bottle 04/04/19 Naproxen [Naprosyn] 500 mg PO BID PRN #20 tab 06/20/19 Insulin Glargine [Lantus SoloStar Pen] 30 unit SQ DAILY #0 05/31/20 Primary Care Physician: Ranjeet Shine MD [Primary Care Provider] - Please follow up with your Primary Care Physician in: 1 week Test Results: Test results from this visit will be discussed in further detail at your follow- up appointment, if applicable. Proposed Discharge Date: 05/31/20
--- NOTE | 2020-05-31 13:53 | STRESSREP_ITS ---
Stress Test Report Date: 05/31/2020 Procedure: Pharmacologic stress nuclear imaging study Indications: Chest pain Consent: Per the patient Procedure: The patient underwent pharmacologic (Regadenoson) evaluation with a peak heart rate of 167 beats per minute (46 %predicted maximal heart rate) and a peak blood pressure of 118/72 mmHg. The baseline ECG demonstrated normal sinus rhythm. EKG during lexiscan infusion revealed no significant ischemic changes. EKG post infusion revealed no significant ischemic changes [There were no cardiac dysrhythmias pretest, during pharmacologic infusion, or recovery]. [There was no complaint of chest discomfort during pharmacologic infusion or recovery]. The examination was discontinued secondary to completion of protocol. Impression: 1. Lexiscan stress test test is negative for Lexiscan infusion induced EKG changes of ischemia. 2. Lexiscan stress test test is negative for Lexiscan infusion induced chest pain. 3. Results of the nuclear portion of the test is as below Myocardial perfusion imaging study: Technique: The patient was injected with 11 millicuries of technetium 99m Cardiolite and subsequently rest SPECT Cardiolite nuclear imaging was obtained in the horizontal long, vertical long, and short axis views. The patient underwent pharmacologic (Regadenoson) evaluation. Please see above for details. The patient was injected with 34.1 millicuries of technetium 99m Cardiolite and subsequently stress SPECT Cardiolite nuclear imaging was obtained in the horizontal long, vertical long, and short axis views. A gated Cardiolite study at peak stress was obtained. Interpretation: Rest and stress SPECT Cardiolite nuclear imaging status post realignment, normalization, and attenuation correction demonstrate no significant large fixed or reversible defect suggestive of significant ischemia or infarction. Gated images reveal no significant regional wall motion abnormalities. The reported LVEF is 70 %. Impression: 1. There is no evidence of significant ischemia or infarction. 2. Estimated ejection fraction is 70%. This note was generated with Stackdriveration software. It may contain incorrect words, spelling, and punctuation that were not noted in checking the note before signing.
--- NOTE | 2020-05-31 14:06 | CASEMGMT ---
SW called [facility] transportation and arranged for patient to get picked up at [facility]. RN and executive secretary aware. Plan: d/c home via [facility] transportation van. Angela RODRIGUEZ MSW
--- NOTE | 2020-05-31 14:16 | DS.PCM_ITS ---
<Jeffrey Velasquez - Last Filed: 05/31/20 14:16> Discharge Date and Diagnosis Date of Admission: 05/29/20 Date of Discharge: 05/31/20 - Primary Discharge Diagnosis Acute Problems: Active Problems (Last Reviewed 05/31/20 @ 01:[address] Juan Pablo Giron MD) Chest pain -musculoskeletal DMt2 with Hypoglycemia - Secondary Discharge Diagnosis Chronic Problems: Chronic Problems HTN (hypertension) (Chronic) HLD (hyperlipidemia) (Chronic) Diabetes mellitus, type II (Chronic) Anxiety and depression (Chronic) Obesity (Chronic) Hypothyroidism (Chronic) Former tobacco use (Chronic) Hospital Course and Treatment Imaging Results: 05/31/20 05:55 Nuclear Stress Test - Chemical [NM] AM (NON MEDS) Impression: 1. There is no evidence of significant ischemia or infarction. 2. Estimated ejection fraction is 70%. IMPRESSION: Unremarkable CTA chest examination, without a demonstrated pulmonary embolism or arterial dissection. CT/CT ANGIO ABD&PEL W/O&W/DYE IMPRESSION: Unremarkable CTA chest examination, without a demonstrated pulmonary embolism or arterial dissection. RAD/Chest 1 View (Portable) IMPRESSION: No acute process Operations: None Procedures: Stress test Summary of Care Provided: Hospital course: The patient is a 55 year old F with pmhx as above who presented from the halfway with chest pain described as a dull pain in the midsternal region, reporting she had some radiation of the left arm and some associated numbness. This was worse with coughing. She was found to have a negative EKG, negative troponin, negative CTA of the chest, negative CTA of the abdomen. She was found to have low blood sugar with glucose in the 60s and took glucose tabs for this. She was found to have somewhat low blood sugar in the ER as well. She was admitted for chest pain work-up. She had no events on telemetry. She underwent a stress test the following day that was negative for ischemia. Her chest pain was reproducible with mild palpation of the sternal region. This was felt to be musculoskeletal. Her home Lantus dose was decreased. She was discharged back to the halfway in stable condition. She will need follow-up with her PCP in 1 week. This patient was seen by Jeffrey Velasquez PA-C under the supervision of Doctor Tavares. [] - Physical Exam Vitals/I&O's: Vital Signs Temp Pulse Resp BP Pulse Ox 97.7 F L 62 14 144/69 H 98 05/31/20 10:44 05/31/20 11:10 05/31/20 10:44 05/31/20 10:44 05/31/20 10:44 Oxygen Delivery Method Room Air Weight: 194 lb 14.218 oz Body Mass Index (BMI) 38.0 Intake and Output for Last 24 Hours 05/29/20 05/30/20 05/31/20 23:59 23:59 23:59 Intake Total 609.25 / 609.25 Balance 609.25 / 609.25 General: Alert, Oriented x3, Cooperative HEENT: Atraumatic, PERRLA, EOMI, Normocephalic Neck: Supple, No JVD, Negative Carotid Bruits Lungs: Clear to auscultation, Normal air movement Cardiovascular: Regular rate, No murmurs Abdomen: Bowel Sounds Present, Soft, Non Tender Extremities: No edema, Capillary Refill Less than 3 Seconds Skin: No rashes, No breakdown Musculoskeletal: No Tenderness to Palpation of Joints or Extremities, - - CP with light palp of the mediastinum Neurological: Cranial nerves II-XII grossly intact Psych/Mental Status: Normal Affect, Appropriate, Alert and oriented to time, place, person, mood and affect Laboratory Results 05/30/20 19:20: WBC 9.1, RBC 5.34, Hgb 14.2, Hct 45.2, MCV 84.6, MCH 26.6 L, MCHC 31.4 L, RDW Std Deviation 50.1 H, RDW Coeff of Lidia 16.3 H, Plt Count 315, MPV 10.4, Immature Gran % (Auto) 0.300, Neut % (Auto) 64.7, Lymph % (Auto) 21.1, Glynn % (Auto) 11.6 H, Eos % (Auto) 2.0, Baso % (Auto) 0.3, Absolute Neuts (auto) 5.9, Absolute Lymphs (auto) 1.91, Nucleated RBC % 0 05/30/20 19:20: PT 12.4, INR 1.0, APTT 30.5, D-Dimer Quant (PE/DVT) 0.75 H* 05/30/20 19:20: Sodium 140, Potassium 4.3, Chloride 109 H, Carbon Dioxide 25.0, Anion Gap 6, BUN 28 H, Creatinine 1.12 H, Estim Creat Clear Calc 41.73, Est GFR (MDRD) Af Amer 65, Est GFR (MDRD) Non-Af 54 L, BUN/Creatinine Ratio 25.0 H, Glucose 103, Calcium 9.2, Troponin I < 0.015 05/30/20 23:05: POC Glucose 61 L 05/31/20 00:47: POC Glucose 112 H 05/31/20 01:10: Troponin I < 0.015 05/31/20 01:37: POC Glucose 124 H 05/31/20 04:38: Troponin I < 0.015 05/31/20 06:12: POC Glucose 54 L 05/31/20 06:28: POC Glucose 129 H 05/31/20 07:10: WBC 7.5, RBC 5.21, Hgb 13.7, Hct 43.7, MCV 83.9, MCH 26.3 L, MCHC 31.4 L, RDW Std Deviation 49.4 H, RDW Coeff of Lidia 16.1 H, Plt Count 262, MPV 9.9, Immature Gran % (Auto) 0.400, Neut % (Auto) 53.2, Lymph % (Auto) 31.3, Glynn % (Auto) 12.4 H, Eos % (Auto) 2.3, Baso % (Auto) 0.4, Absolute Neuts (auto) 4.0, Absolute Lymphs (auto) 2.36, Nucleated RBC % 0 05/31/20 07:10: Sodium 140, Potassium 3.6, Chloride 107, Carbon Dioxide 28.0, Anion Gap 5, BUN 20 H, Creatinine 0.93, Estim Creat Clear Calc 50.25, Est GFR (MDRD) Af Amer 81, Est GFR (MDRD) Non-Af 67, BUN/Creatinine Ratio 21.4 H, Glucose 90, Calcium 8.5, Troponin I < 0.015, Triglycerides 168, Cholesterol 143, LDL Cholesterol 66, VLDL Cholesterol 34, HDL Cholesterol 43 05/31/20 10:39: POC Glucose 114 H Current Medications Acetaminophen (Tylenol) 650 mg PO Q6H PRN PRN PRN Reason: Pain Score 1-10/Temp > 100.7 F Last Admin: 05/31/20 10:53 Dose: 650 mg Documented by: Aspirin (Aspirin, Baby) 81 mg PO DAILYCM [facility] Last Admin: 05/31/20 06:17 Dose: 81 mg Documented by: Atenolol (Tenormin (Beta Aby)) 100 mg PO DAILY [facility] Last Admin: 05/31/20 10:41 Dose: 100 mg Documented by: Atorvastatin Calcium (Lipitor) 20 mg PO QHS [facility] Last Admin: 05/31/20 01:38 Dose: 20 mg Documented by: Cholecalciferol (Vitamin D (25mcg)) 2,000 unit PO DAILY [facility] Last Admin: 05/31/20 10:41 Dose: 2,000 unit Documented by: Dextrose (D50w Syringe) 0 gm IV X1 PRN; Protocol PRN Reason: Hypoglycemia Last Admin: 05/31/20 06:17 Dose: 12.5 gm Documented by: Duloxetine HCl (Cymbalta) 60 mg PO DAILY [facility] Last Admin: 05/31/20 10:41 Dose: 60 mg Documented by: Estradiol (Estrace (G)) 1 mg PO DAILY [facility] Last Admin: 05/31/20 10:41 Dose: 1 mg Documented by: Glucagon () 1 mg IM .X1 PRN PRN Reason: Hypoglycemia Insulin Human Lispro (Humalog Kwikpen (Bkc)) 0 unit SC Q6 [facility]; Protocol Last Admin: 05/31/20 10:42 Dose: Not Given Documented by: Levothyroxine Sodium (Synthroid) 50 mcg PO DAILY@0600 [facility] Last Admin: 05/31/20 06:17 Dose: 50 mcg Documented by: Lisinopril (Zestril) 20 mg PO DAILY [facility] Last Admin: 05/31/20 06:17 Dose: 20 mg Documented by: Morphine Sulfate () 2 mg IV Q3H PRN PRN PRN Reason: Pain Score 6-10/10 Nystatin (Mycostatin Powder) 1 applic TOPICAL TID [facility]; Protocol Last Admin: 05/31/20 06:16 Dose: 1 applic Documented by: Ondansetron HCl (Zofran) 4 mg IV Q8H PRN PRN PRN Reason: NAUSEA/VOMITING Pantoprazole Sodium (Protonix) 40 mg PO BID [facility] Last Admin: 05/31/20 10:41 Dose: 40 mg Documented by: Sodium Chloride () 10 - 40 ml IV UD PRN PRN Reason: SALINE FLUSH Discharge Diet: Low fat/ Low Cholesterol, 2000 mg Sodium Diet Discharge Activity: Return to Normal Activity Home Medications: Medications to take at Discharge Atenolol [Tenormin (beta aby)] 100 mg PO DAILY 02/24/18 Atorvastatin Calcium [Lipitor] 20 mg PO QHS 02/24/18 Duloxetine Hcl [Cymbalta] 60 mg PO DAILY 02/24/18 Empagliflozin [Jardiance] 10 mg PO DAILY 02/24/18 Estradiol [Estrace] 1 mg PO DAILY 02/24/18 Levothyroxine [Synthroid] 50 mcg PO DAILY 02/24/18 Lisinopril [Zestril] 20 mg PO DAILY 02/24/18 Meloxicam [Mobic] 15 mg PO DAILY 02/24/18 Pioglitazone [Actos] 45 mg PO DAILY 02/24/18 Sitagliptin Phosphate [Januvia] 100 mg PO DAILY 02/24/18 metFORMIN HCl [Glucophage] 1,000 mg PO BIDCM 02/24/18 Aspirin [Aspirin, Baby] 81 mg PO DAILY 02/17/19 cholecalciferol (vitamin D3) 50 mcg (2,000 unit) capsule 2,000 unit PO DAILY 04/01/19 pantoprazole 40 mg tablet,delayed release 40 mg PO BID tab 04/01/19 Nystatin Powder [Mycostatin Powder] 1 applic TOPICAL TID #1 bottle 04/04/19 Naproxen [Naprosyn] 500 mg PO BID PRN #20 tab 06/20/19 Insulin Glargine [Lantus SoloStar Pen] 30 unit SQ DAILY #0 05/31/20 Nitrofurantoin Macrocrystals [Macrobid] 100 mg PO Q12 05/31/20 Primary Care Physician: Ranjeet Shine MD [Primary Care Provider] - Please follow up with your Primary Care Physician in: 1 week Disposition: Home Minutes spent on discharge:: 35 Patient Condition:: Stable Medical Necessity - Tobacco Use Smoking Status: Never smoker Meaningful Use Info Meaningful Use Diagnoses (Choose all that apply): None applicable <Jonathon Tavares E - Last Filed: 06/01/20 10:33> Discharge Date and Diagnosis - Secondary Discharge Diagnosis Chronic Problems: Chronic Problems HTN (hypertension) (Chronic) HLD (hyperlipidemia) (Chronic) Diabetes mellitus, type II (Chronic) Anxiety and depression (Chronic) Obesity (Chronic) Hypothyroidism (Chronic) Former tobacco use (Chronic) Hospital Course and Treatment Summary of Care Provided: Hospitalist Note: Discharge summary above reviewed and I concur with above discharge treatment plan. Patient presented to the emergency room because of chest pain and upper back pain. She had extensive work-up that showed no evidence of acute pathology. Her EKG revealed no acute segment changes. Her troponin was negative x3. D- dimer was elevated for which CTA chest done and showed no PE or dissection, no other acute findings. She had CTA abdomen and pelvis that showed no evidence of acute intravascular occlusion or stenosis. Routine blood work was unremarkable. She underwent nuclear stress test that showed no evidence of stress-induced myocardial ischemia and ejection fraction was preserved. ACS ruled out. Her chest pain and upper back pain attributed to musculoskeletal pain. ACS ruled out. Patient was discharged home in a stable medical condition, discharged on her previous home medications without any changes, recommended follow-up with PCP in 1 week. - Physical Exam General: Alert, Oriented x3, Cooperative, No apparent distress. HEENT: Atraumatic, PERRLA, EOMI. Neck: Supple, No JVD, Negative Carotid Bruits, Trachea Midline, Thyroid Normal. Lungs: Clear to auscultation, Normal air movement, No rhonchi, No wheeze, No rales. Cardiovascular: Regular rate, Regular Rhythm, Normal S1, Normal S2, PMI Normal. Abdomen: Bowel Sounds Present, Soft, Non Tender, Non-Distended, No Hepato- splenomegaly. Extremities: No clubbing, No cyanosis, No edema Skin: No rashes, No breakdown Neurological: Cranial nerves are intact, neuro grossly intact Vital Signs are stable. This note was generated with Yap dictation software. It may contain incorrect words, spelling, and punctuation that were not noted in checking the note before signing. - Physical Exam Vitals/I&O's: Vital Signs Temp Pulse Resp BP Pulse Ox 97.7 F L 62 14 144/69 H 98 05/31/20 10:44 05/31/20 11:10 05/31/20 10:44 05/31/20 10:44 05/31/20 10:44 Oxygen Delivery Method Room Air Weight: 194 lb 14.218 oz Body Mass Index (BMI) 38.0 Intake and Output for Last 24 Hours 05/29/20 05/30/20 05/31/20 23:59 23:59 23:59 Intake Total 609.25 / 609.25 Balance 609.25 / 609.25 Laboratory Results 05/30/20 19:20: WBC 9.1, RBC 5.34, Hgb 14.2, Hct 45.2, MCV 84.6, MCH 26.6 L, MCHC 31.4 L, RDW Std Deviation 50.1 H, RDW Coeff of Lidia 16.3 H, Plt Count 315, MPV 10.4, Immature Gran % (Auto) 0.300, Neut % (Auto) 64.7, Lymph % (Auto) 21.1, Glynn % (Auto) 11.6 H, Eos % (Auto) 2.0, Baso % (Auto) 0.3, Absolute Neuts (auto) 5.9, Absolute Lymphs (auto) 1.91, Nucleated RBC % 0 05/30/20 19:20: PT 12.4, INR 1.0, APTT 30.5, D-Dimer Quant (PE/DVT) 0.75 H* 05/30/20 19:20: Sodium 140, Potassium 4.3, Chloride 109 H, Carbon Dioxide 25.0, Anion Gap 6, BUN 28 H, Creatinine 1.12 H, Estim Creat Clear Calc 41.73, Est GFR (MDRD) Af Amer 65, Est GFR (MDRD) Non-Af 54 L, BUN/Creatinine Ratio 25.0 H, Glucose 103, Calcium 9.2, Troponin I < 0.015 05/30/20 23:05: POC Glucose 61 L 05/31/20 00:47: POC Glucose 112 H 05/31/20 01:10: Troponin I < 0.015 05/31/20 01:37: POC Glucose 124 H 05/31/20 04:38: Troponin I < 0.015 05/31/20 06:12: POC Glucose 54 L 05/31/20 06:28: POC Glucose 129 H 05/31/20 07:10: WBC 7.5, RBC 5.21, Hgb 13.7, Hct 43.7, MCV 83.9, MCH 26.3 L, MCHC 31.4 L, RDW Std Deviation 49.4 H, RDW Coeff of Lidia 16.1 H, Plt Count 262, MPV 9.9, Immature Gran % (Auto) 0.400, Neut % (Auto) 53.2, Lymph % (Auto) 31.3, Glynn % (Auto) 12.4 H, Eos % (Auto) 2.3, Baso % (Auto) 0.4, Absolute Neuts (auto) 4.0, Absolute Lymphs (auto) 2.36, Nucleated RBC % 0 05/31/20 07:10: Sodium 140, Potassium 3.6, Chloride 107, Carbon Dioxide 28.0, Anion Gap 5, BUN 20 H, Creatinine 0.93, Estim Creat Clear Calc 50.25, Est GFR (MDRD) Af Amer 81, Est GFR (MDRD) Non-Af 67, BUN/Creatinine Ratio 21.4 H, Glucose 90, Calcium 8.5, Troponin I < 0.015, Triglycerides 168, Cholesterol 143, LDL Cholesterol 66, VLDL Cholesterol 34, HDL Cholesterol 43 05/31/20 10:39: POC Glucose 114 H Disposition: Home Minutes spent on discharge:: 29 Patient Condition:: Stable Meaningful Use Info Meaningful Use Diagnoses (Choose all that apply): None applicable OBSV E&M: 64445 Observation care discharge
== END 2020-05-31 11:33 | disposition home or self-care (01) ==
LOC: ED 22:43 → PCU 23:24
PROVIDERS: Admitting Provider Hospitalist; Emergency Provider Emergency Medicine; PCP Family Medicine; Referring Provider Hospitalist; Visit Provider Hospitalist
DX: R07.89 Other chest pain (principal); E11.40 Type 2 diabetes mellitus with diabetic neuropathy, unspecified; M54.5 Low back pain; F41.9 Anxiety disorder, unspecified; F32.9 Major depressive disorder, single episode, unspecified; E78.5 Hyperlipidemia, unspecified; E03.9 Hypothyroidism, unspecified; I10 Essential (primary) hypertension; Z79.899 Other long term (current) drug therapy; Z79.4 Long term (current) use of insulin; Z79.82 Long term (current) use of aspirin; E66.9 Obesity, unspecified; Z68.38 Body mass index [BMI] 38.0-38.9, adult; Z87.891 Personal history of nicotine dependence; M19.90 Unspecified osteoarthritis, unspecified site; Z79.1 Long term (current) use of non-steroidal anti-inflammatories (NSAID); M54.6 Pain in thoracic spine
CPT/HCPCS: 36415; 71045; 71275; 74174; 78452; 80048; 80061; 82962; 84484; 85025; 85379; 85610; 85730; 93005; 93017; 94002; 94660; 96374; 96375; 99218; 99285; A9500; Q9967; A4216; G0378; J2405; J2785

== ENCOUNTER 2020-07-06 21:37 | Emergency (ER) | payer OTHER, MEDICARE, MEDICAID, SELFPAY ==
[2020-05-31 01:10] VITALS: BMI 38.0
[2020-07-06 21:40] VITALS: BP 148/102; PULSE 69; RESP 16; TEMP 36.9; O2SAT 100; BMI 38.2
--- NOTE | 2020-07-06 22:05 | RAD_ITS ---
STUDY: X-RAY - LEFT SHOULDER REASON FOR EXAM: Female, 55 years old. FALL YESTERDAY, LEFT SHOULDER PAIN TECHNIQUE: 4 view(s) of the shoulder. COMPARISON: 07/28/2017. FINDINGS: Normal glenohumeral articulation. There are degenerative changes of the acromioclavicular joint. Normal acromion. Normal humeral head and visualized proximal humerus. There is periarticular soft tissue calcification consistent with a calcific tendinitis. Normal visualized pulmonary apex. RAD/Shoulder min 2 Views IMPRESSION: Degenerative changes of the acromioclavicular joint. Calcific tendinitis. Electronically Signed: Mely Fernando MD at 22:37 EDT Tel , Service support ,
--- NOTE | 2020-07-06 22:06 | ED.VIS.GEN ---
History of Present Illness Chief Complaint: Upper Extremity Injury Informant: Patient Onset: Yesterday Current Severity: Moderate Maximum Severity: Moderate Narrative: Patient presents with complaints of left shoulder and left knee pain after a fall yesterday. She states she was at work and had just mopped the floor and fell on the wet floor. She landed on her outstretched left arm and hit her left knee. She is right-hand dominant. She did take Tylenol prior to arrival. - Past Medical History (1) Anxiety and depression Status: Chronic (2) Diabetes mellitus, type II Status: Chronic (3) HLD (hyperlipidemia) Status: Chronic (4) HTN (hypertension) Status: Chronic (5) Hypothyroidism Status: Chronic Past Medical History - Allergies and Home Meds Allergies/Adverse Reactions: Allergies Bleach (Sodium Hypochlorite) Allergy (Severe, Verified 07/06/20 21:43) HIVES Penicillins Allergy (Verified 07/06/20 21:43) Rash Sulfa (Sulfonamide Antibiotics) Adverse Reaction (Verified 07/06/20 21:43) Nausea/Vom/Diarrhea Primary Care Physician: Ranjeet Shine MD [Primary Care Provider] - Prior records reviewed: Yes Surgical History: - - Hysterectomy, cataract surgery. Smoking Status: Never smoker - Family History Maternal Family History: Family History (Last Reviewed 05/31/20 @ 01:[address] Juan Pablo Giron MD) Other ANGINA Anxiety Arthritis Blood clotting disorder Bowel disease Breast cancer CVA (cerebral vascular accident) Cancer Colon cancer Depression Diabetes Heart disease Hyperlipidemia Hypertension Melanoma Mental disorder Myocardial infarction Osteoporosis Ovarian cancer Parkinsons disease Thyroid disorder Family History: Reports: - - Patient notes a maternal and paternal family history of hypertension, hyperlipidemia, diabetes. Paternal Family History: Family History (Last Reviewed 05/31/20 @ 01:[address] Juan Pablo Giron MD) Other ANGINA Anxiety Arthritis Blood clotting disorder Bowel disease Breast cancer CVA (cerebral vascular accident) Cancer Colon cancer Depression Diabetes Heart disease Hyperlipidemia Hypertension Melanoma Mental disorder Myocardial infarction Osteoporosis Ovarian cancer Parkinsons disease Thyroid disorder Family History: Reports: - - Patient notes a maternal and paternal family history of hypertension, hyperlipidemia, diabetes. Review of Systems General: Denies: Chills, Fever Eyes: Denies: Visual changes - bilaterally ENT: Denies: Bilateral ear pain Cardiovascular: Denies: Chest pain Respiratory: Denies: Dyspnea, Cough Gastrointestinal: Denies: Abdominal pain, Vomiting Musculoskeletal: Reports: Extremity Pain. Denies: Neck pain, Back pain Skin: Reports: - - Ecchymoses Neurological: Denies: Headache, Weakness Hematologic: Denies: Easy bruising, Easy bleeding Allergy: Denies: Uticaria Physical Exam Vital Signs/Narrative: Vital Signs Temp Pulse Resp BP Pulse Ox 07/06/20 21:40 98.4 F 69 16 148/102 H 100 Inital Vital Signs reviewed: Yes General: Well nourished, Well developed Head: Normocephalic ENT: Moist mucous membranes Neck: Supple Cardiovascular: Regular rate, Regular rhythm Respiratory: No distress, CTA bilaterally Abdomen: Soft, Nontender Extremities: - - Diffuse tenderness around the left shoulder with ecchymosis over the anterior shoulder. No obvious deformity. She does have good range of motion but does have pain with movement. No evidence of dislocation. Strong distal pulses are noted. There is a small appearing ecchymosis of the anterior left knee with an abrasion. No focal bony tenderness. Good range of motion. Neurological: Alert, Oriented x3 Psychological: Normal affect Diagnostic/Tx/Re-eval Impressions Shoulder X-Ray 07/06/20 22:05 IMPRESSION: Degenerative changes of the acromioclavicular joint. Calcific tendinitis. Electronically Signed: Mely Fernando MD at 22:37 EDT Tel , Service support , Knee X-Ray 07/06/20 22:10 IMPRESSION: No acute osseous injury. Electronically Signed: Mely Fernando MD at 22:38 EDT Tel , Service support , 07/06/20 22:05 Shoulder min 2 Views [RAD] Stat 07/06/20 22:10 Knee 4 or More Views [RAD] Stat - Medical Decision Making Patient was given naproxen for pain. Test results are discussed with her. Although patient does have evidence of calcific tendinitis on her x-ray, this is not a result of a fall that occurred yesterday. This is more likely a chronic ongoing issue. Patient be given a prescription for naproxen. She states she does have a sling that she can wear if needed. ED Disposition - Plan for ED Patient: Disposition: Home or Assisted Living Diagnosis: Fall, Contusion of left shoulder, Contusion of left knee Instructions: ED EXTREMITY CONTUSION Lower, ED Contusion Shoulder Prescriptions: Naproxen [Naprosyn] 500 mg PO BID PRN PRN #20 tab PRN Reason: Pain Score 4-10/10 Transmission Status: Pending to [facility] [place] - [id number] Referrals: [facility] [GROUP OF PHYSICIANS] - 3-5 Days
--- NOTE | 2020-07-06 22:10 | RAD_ITS ---
STUDY: X-RAY - LEFT KNEE REASON FOR EXAM: Female, 55 years old. FALL YESTERDAY, LEFT KNEE PAIN TECHNIQUE: 4 view(s) of the knee. COMPARISON: Right knee dated 01/13/2020 FINDINGS: Normal visualized distal femur. Normal visualized proximal tibia and fibula. Normal proximal tibiofibular articulation. Normal medial femorotibial compartment. Normal lateral femorotibial compartment. Normal patellofemoral articulation. The soft tissue structures are unremarkable. RAD/Knee 4 or More Views IMPRESSION: No acute osseous injury. Electronically Signed: Mely Fernando MD at 22:38 EDT Tel , Service support ,
[2020-07-06] MEDS: Naproxen 500 MG Tablet PO (22:27)
== END 2020-07-06 23:20 | disposition home or self-care (01) ==
PROVIDERS: Emergency Provider Emergency Medicine; PCP Family Medicine
DX: S80.02XA Contusion of left knee, initial encounter (principal); S40.012A Contusion of left shoulder, initial encounter; W01.0XXA Fall on same level from slipping, tripping and stumbling without subsequent striking against object, initial encounter; Y93.E5 Activity, floor mopping and cleaning; Y92.9 Unspecified place or not applicable; Y99.0 Civilian activity done for income or pay; E11.9 Type 2 diabetes mellitus without complications; I10 Essential (primary) hypertension; E78.5 Hyperlipidemia, unspecified; E03.9 Hypothyroidism, unspecified; F32.9 Major depressive disorder, single episode, unspecified; F41.9 Anxiety disorder, unspecified; Z79.84 Long term (current) use of oral hypoglycemic drugs; Z79.82 Long term (current) use of aspirin; Z79.4 Long term (current) use of insulin; Z79.899 Other long term (current) drug therapy
CPT/HCPCS: 73030; 73564; 99284

== ENCOUNTER 2020-10-25 13:44 | Emergency (ER) | payer MEDICARE, MEDICAID, SELFPAY ==
[2020-07-10 10:51] VITALS: BMI 38.2
[2020-10-25 13:45] VITALS: BP 148/88; PULSE 63; RESP 16; TEMP 36.8; O2SAT 100; BMI 38.5
--- NOTE | 2020-10-25 14:11 | RAD_ITS ---
STUDY: X-RAY CHEST REASON FOR EXAM: Female, 55 years old. Low abdomen pain, nausea TECHNIQUE: Single AP portable view of the chest. COMPARISON: 05/30/2020 FINDINGS: The lungs are clear and expanded. There is no demonstrated pleural abnormality. Normal size heart. Normal mediastinum and skinny. Normal visualized pulmonary arteries. Normal visualized aortic arch and descending thoracic aorta. Normal visualized thoracic spine. Normal visualized ribs, clavicles, and shoulders. There is no demonstrated abnormality of the visualized soft tissue structures of the upper abdomen. RAD/Chest 1 View (Portable) IMPRESSION: Normal x-ray examination of the chest. Electronically Signed: Tuan Burrows MD at 14:40 EST Tel , Service support ,
[2020-10-25 14:25] LABS: Absolute Lymphocyte Count 1.17 X10^3/uL (0.83-4.51); Absolute Neutrophil Count 2.3 X10^3/uL (2.0-7.7); Basophil# 0.02 X10^3/uL; Basophil% 0.5 % (0-1); Eosinophils% 2.4 % (0-5); Hematocrit 39.9 % (37-47); Hemoglobin 12.5 g/dL (12.0-15.0); Lymphocyte # 1.17 X10^3/ul (4.0); Lymphocyte % 27.9 % (19-41); Mean Corp Hgb Conc 31.3 g/dL (32-36); Mean Corpuscular Hgb 28.2 pg (27.0-32.0); Mean Corpuscular Volume 90.1 fL (81-99); Mean Platelet Vol. 9.7 fl (6.2-12.0); Monocyte# 0.62 X10^3/uL; Monocyte% 14.8 % (0-10); NRBC Flagged by Analyzer 0 % (0-5); Neutrophil # 2.28 X10^3/uL (2.7-7.7); Neutrophil % 54.2 % (47-70); Platelet Count 214 K/mm3 (150-450); RBC Distribution Width CV 14.5 % (11.6-14.6); RBC Distribution Width SD 48.1 fl (35.1-43.9); Red Blood Count 4.43 M/mm3 (4.2-5.4); White Blood Count 4.2 K/mm3 (4.4-11.0)
[2020-10-25] MEDS: Ondansetron 4 MG/2 ML Vial IV (14:30)
[2020-10-25] MEDS: 0.9% Normal Saline 1,000 ML 1000 ML IV (14:30)
[2020-10-25] MEDS: Morphine 4 MG/ML Syringe IV (14:31)
[2020-10-25 14:44] LABS: ALB/GLOB Ratio 0.8 RATIO (0.9-2.4); AST(SGOT) 15 U/L (15-37); Alanine Aminotransfer ALT/SGPT 24 U/L (13-56); Albumin, Serum 3.1 g/dL (3.2-5.0); Alkaline Phosphatase 61 U/L (45-117); Anion Gap 3 (5-15); BUN 19 mg/dL (7-18); BUN/Creat Ratio 20.2 RATIO (10-20); Calcium,Total 8.2 mg/dL (8.5-10.1); Chloride 108 mmol/L (98-107); Creatinine, Serum 0.94 mg/dL (0.55-1.02); EST Glomerular Filtration Rate 66 mL/min (>60); Est Glom Filt Rate - Afr Amer 80 mL/min (>60); Estimated Creatinine Clearance 49.72 ml/min; Globulin 3.8 g/dL (2.2-4.2); Glucose 108 mg/dL (74-106); Lipase 97 U/L (73-393); Potassium 4.5 mmol/L (3.5-5.1); Protein, Total 6.9 g/dL (6.4-8.2); Sodium Level 140 mmol/L (136-145)
--- NOTE | 2020-10-25 14:45 | CT_ITS ---
STUDY: CT ABDOMEN AND PELVIS WITHOUT CONTRAST REASON FOR EXAM: Female, 55 years old. MID/LOWER ABDOMINAL PAIN WITH NAUSEA RADIATION DOSAGE (If Supplied By Facility): CTDIvol = ( 19.85 ) mGy, DLP = ( 976.74 ) mGycm TECHNIQUE: Transaxial images were obtained from the dome of the diaphragm to the symphysis pubis without oral contrast, and without intravenous contrast. Sagittal and coronal images were reconstructed. Individualized dose optimization techniques were used for this CT. COMPARISON: 06/28/2019 FINDINGS: The visualized lung bases are unremarkable. The visualized portions of the heart are within normal limits. Normal liver. Normal gallbladder and extrahepatic biliary system. Normal spleen. Normal pancreas. Normal bilateral adrenal glands. Normal right kidney. Normal left kidney. Normal visualized stomach. Normal small intestine. Normal colon. The appendix is visualized and appears normal. Normal abdominal aorta. Normal inferior vena cava. Normal retroperitoneum. Normal urinary bladder. Normal abdominal wall. Normal osseous structures. CT/Abdomen/Pelvis without Cont IMPRESSION: Normal unenhanced CT of the abdomen and pelvis. Electronically Signed: Tuan Burrows MD at 15:09 EST Tel , Service support ,
[2020-10-25 15:06] LABS: Bacteria 0 SEEN /hpf (None Seen); Mucous, Urine 0 SEEN /hpf (<or=2+); Red Blood Cells-Urine 0 SEEN /hpf (0-5); White Blood Cells 0 SEEN /hpf (0-5)
[2020-10-25 15:10] LABS: Color, Urine Yellow (Yellow); Glucose, Dipstick 1000 mg/dl (Normal); Ketone-Dipstick Negative (Negative); Leukocyte Esterase-Dipstick Negative /ul (Negative); Nitrite-Dipstick Negative (Negative); Occult Blood-Urine Negative /ul (Negative); Protein-Dipstick Negative (Negative); Urine Bilirubin Dipstick Negative (Negative); Urine Clarity Clear (Clear); Urine Urobilinogen Normal (Normal)
[2020-10-25 15:21] LABS: Squamous Epithelial Cells - UA 0-5 SEEN /hpf (5-10)
--- NOTE | 2020-10-25 15:28 | ED.VISSUMM ---
- ER Visit Summary Date of Service: 10/25/20 Chief Complaint: Abdominal pain History of Present Illness: The patient is a [address] Shine. She reports that she has abdominal pain that began yesterday and is gradually worsened. Says sharp suprapubic pain is 10 of 10 at worst and 6 out of 10 currently. Is worsened by movement relieved by remaining still. She had nausea without vomiting. She had 5 episodes of diarrhea. Patient denies sick contacts. Has not been camping out of the country. No possible bad food exposure. Does drink well water. No recent antibiotic use. Patient reports she has a cough that began 2 days ago. She has had chills. She denies any chest pain or shortness of breath. She does complain of generalized weakness. Physical Examination: Vitals: Stable. Afebrile. General: Well-nourished and well-developed. Head: Normocephalic atraumatic. Neck: Supple, no lymphadenopathy. No JVD. Nontender. Cardiovascular: Regular rate and rhythm. No murmurs. Respiratory: No respiratory distress. Clear to auscultation bilaterally. Abdominal: Soft, moderate suprapubic tenderness to palpation, nondistended, normal bowel sounds. No guarding, rebound, or peritoneal signs. Back: Nontender. Extremities: Nontender, no edema. Skin: Normal color, no rash. Neurologic: Alert and oriented ?3. Cranial nerves II through XII are intact. Normal strength and sensation. Psych: Normal affect. Test Results: CBC shows a white count of 4.2 with monocytes 15. Chem-7 shows a chloride of 108, glucose 108, BUN 19, calcium 8.2. LFTs show an albumin of 3.1. Lipase is normal. Urine is only remarkable for glucose. Chest x-ray is normal. CT flank shows no acute disease. COVID-19 rapid antigen is positive. Emergency Department Course and Treatment: Patient was treated morphine and Zofran IV. She is resting comfortably. Treatment Plan: Patient does have a history of diabetes. She does not require oxygen. She will be referred for monoclonal antibody treatment. She is given Zofran for her nausea. Instructed to follow-up with her primary care physician in 10 to 14 days if not improving. Return to the emergency department for any worsening symptoms. Disposition: To home in improved and stable condition. Impression: 1. COVID-19 infection. 2. Diarrhea. This note was generated with [employer] dictation software. It may contain incorrect words, spelling, and punctuation that were not noted in review of the chart prior to signing ED Disposition - Plan for ED Patient: Instructions: ED - COVID Monoclonal AB Infusion ..., Coronavirus Disease 2019 (COVID-19): Overview Prescriptions: Ondansetron [Zofran Odt] 4 mg PO Q8H PRN PRN #10 tablet PRN Reason: Nausea Referrals: Ranjeet Shine MD [Primary Care Provider] - 10-14 Days if not better
[2020-10-25 15:53] VITALS: BP 138/87; PULSE 87; RESP 16; O2SAT 98
== END 2020-10-25 16:34 | disposition home or self-care (01) ==
PROVIDERS: Emergency Provider Emergency Medicine; PCP Family Medicine
DX: U07.1 COVID-19 (principal); R19.7 Diarrhea, unspecified; E11.9 Type 2 diabetes mellitus without complications; I10 Essential (primary) hypertension; R10.2 Pelvic and perineal pain; R53.1 Weakness; R51.9 Headache, unspecified; G47.33 Obstructive sleep apnea (adult) (pediatric); Z79.82 Long term (current) use of aspirin; Z79.4 Long term (current) use of insulin; Z79.899 Other long term (current) drug therapy
CPT/HCPCS: 71045; 74176; 80053; 81001; 83690; 85025; 87426; 96361; 96374; 96375; 99285; J7030; J2405

== ENCOUNTER 2020-10-28 20:17 | Emergency (ER) | payer MEDICARE, MEDICAID, SELFPAY ==
[2020-10-28 20:19] VITALS: BP 166/76; PULSE 71; RESP 19; TEMP 36; O2SAT 99; BMI 38.7
[2020-10-28 20:24] VITALS: BP 166/76; PULSE 70; RESP 20; TEMP 36; O2SAT 100
--- NOTE | 2020-10-28 20:27 | EKG12_ITS ---
Test Reason : SOB Blood Pressure : / mmHG Vent. Rate : 070 BPM Atrial Rate : 070 BPM P-R Int : 128 ms QRS Dur : 068 ms QT Int : 380 ms P-R-T Axes : 002 025 066 degrees QTc Int : 410 ms Normal sinus rhythm Low voltage QRS Confirmed by CJ MARIA, ROYA ([id number]), fashion editor ALEXIS HAWK ([id number]) on 10/31/2020 9:37:34 AM Referred By: KALYN Confirmed By:ROYA CORONA MD
--- NOTE | 2020-10-28 20:28 | ED.DCSUM_ITS ---
- ER Visit Summary Date of Service: 10/28/20 Chief Complaint: Not feeling well and diagnosed with Covid 4 days ago History of Present Illness: The patient is a 55 F history of diabetes, hypertension and Covid positive on October 25, 2020. Patient states she is not feeling well. Said subjectively she has had a fever and feels more short of breath. She has had diarrhea. She denies dysuria. She denies abdominal pain. She was seen in the emergency department about 4 days ago had a negative work-up other than being Covid positive. At that time her chest x-ray was unremarkable as was her CBC and chemistry. She denies any chest pain. No hemoptysis. Physical Examination: Middle-aged female no acute distress. Vital signs are stable. Pulse ox is 100% on room air with the mask on she is afebrile. She does not look septic or toxic. She does not look significantly dehydrated. HEENT exam unremarkable. Moist mucous membranes. Neck nontender. No lymphadenopathy. Lungs clear to auscultation bilaterally. Heart regular rhythm rate about 70 no murmur. Abdomen is soft and nontender. Normal bowel sounds no peritoneal signs. She is moving all 4 extremities. Calves are nontender without edema. Back is nontender. Neurologically she is awake and alert with no focal motor deficits. Test Results: Chest x-ray portable 1 view interpreted by myself shows no acute abnormality. Unchanged from the prior chest x-ray from October 25. EKG shows normal sinus rhythm rate of 70 is unchanged from prior EKG from May. CBC shows a normal white count of 4 and hemoglobin of 13. Chemistries unremarkable glucose of 180 normal gap of 6. Normal creatinine. Emergency Department Course and Treatment: Middle-aged female Covid positive stating she does not feel well. Clinically she does not appear to be septic or toxic. She clinically does not appear to be dehydrated. She is not hypoxic. I reviewed her most recent labs from 4 days ago. We will get screening labs and a repeat chest x-ray. Repeat exam patient is doing well at 10:27 PM. She was ambulated earlier by nursing and her pulse ox stayed 99% without oxygen while walking. Patient I discussed she is comfortable being discharged home. She will be referred to the monoclonal outpatient antibody infusion center for further evaluation for possible infusion treatment. Treatment Plan: Discharged to home. Referral to monoclonal antibody infusion center. Disposition: Discharge Impression: Covid History of insulin-dependent diabetes History of hypertension. This note was generated with [employer] dictation software. It may contain incorrect words, spelling, and punctuation that were not noted in review of the chart prior to signing ED Disposition - Plan for ED Patient: Referrals: Ranjeet Shine MD [Primary Care Provider] -
[2020-10-28 20:33] LABS: Absolute Lymphocyte Count 1.15 X10^3/uL (0.83-4.51); Basophil# 0.02 X10^3/uL; Basophil% 0.4 % (0-1); Eosinophil# 0.08 X10^3/uL; Eosinophils% 1.7 % (0-5); Hematocrit 42.2 % (37-47); Hemoglobin 13.2 g/dL (12.0-15.0); Lymphocyte # 1.15 X10^3/ul (4.0); Lymphocyte % 24.6 % (19-41); Mean Corp Hgb Conc 31.3 g/dL (32-36); Mean Corpuscular Hgb 28.1 pg (27.0-32.0); Mean Platelet Vol. 9.6 fl (6.2-12.0); Monocyte# 0.42 X10^3/uL; NRBC Flagged by Analyzer 0 % (0-5); Neutrophil # 2.99 X10^3/uL (2.7-7.7); Neutrophil % 64.1 % (47-70); Platelet Count 212 K/mm3 (150-450); RBC Distribution Width CV 14.2 % (11.6-14.6); RBC Distribution Width SD 46.8 fl (35.1-43.9); Red Blood Count 4.69 M/mm3 (4.2-5.4); White Blood Count 4.7 K/mm3 (4.4-11.0)
[2020-10-28 20:37] VITALS: O2SAT 100
--- NOTE | 2020-10-28 20:40 | RAD_ITS ---
STUDY: X-RAY CHEST REASON FOR EXAM: Female, 55 years old. Was seen previously for the same, covid positive Thursday, symptoms started Thursday, per pt sob is getting worse TECHNIQUE: Single frontal view of the chest. COMPARISON: 05/30/2020 and 10/25/2020 FINDINGS: There is a new 7.7 mm nodular opacity projecting over the left upper/mid lung. Normal size heart. Normal mediastinum and skinny. Normal visualized pulmonary arteries. Normal visualized aortic arch and descending thoracic aorta. Normal visualized thoracic spine. Normal visualized ribs, clavicles, and shoulders. There is no demonstrated abnormality of the visualized soft tissue structures of the upper abdomen. RAD/Chest 1 View (Portable) IMPRESSION: New 7.7 mm nodular opacity projecting over the left upper/midlung may be secondary to confluence of shadows or an evolving pneumonia. Electronically Signed: Mely Fernando MD at 21:20 EST Tel , Service support ,
[2020-10-28 20:48] LABS: Anion Gap 6 (5-15); BUN 17 mg/dL (7-18); BUN/Creat Ratio 17.3 RATIO (10-20); Calcium,Total 8.4 mg/dL (8.5-10.1); Chloride 105 mmol/L (98-107); Creatinine, Serum 0.98 mg/dL (0.55-1.02); EST Glomerular Filtration Rate 63 mL/min (>60); Est Glom Filt Rate - Afr Amer 76 mL/min (>60); Estimated Creatinine Clearance 47.69 ml/min; Glucose 180 mg/dL (74-106); Potassium 4.1 mmol/L (3.5-5.1); Sodium Level 141 mmol/L (136-145)
[2020-10-28 22:19] VITALS: BP 131/64; PULSE 66; RESP 20; O2SAT 98
--- NOTE | 2020-10-28 22:33 | DCINST.ED_ITS ---
ED Disposition - Plan for ED Patient: Disposition: Home or Assisted Living Instructions: Coronavirus Disease 2019 (COVID-19): Overview Referrals: Ranjeet Shine MD [Primary Care Provider] - As Needed Additional Instructions: The [facility] monoclonal antibody infusion center will follow up with you to determine if you are a candidate for this treatment for COVID-19. All your labs and chest x-ray today look good. Follow-up with your doctor.
== END 2020-10-28 22:50 | disposition home or self-care (01) ==
PROVIDERS: Emergency Provider Emergency Medicine; PCP Family Medicine
DX: U07.1 COVID-19 (principal); E11.9 Type 2 diabetes mellitus without complications; I10 Essential (primary) hypertension; R19.7 Diarrhea, unspecified; Z79.4 Long term (current) use of insulin; F32.9 Major depressive disorder, single episode, unspecified; F41.9 Anxiety disorder, unspecified; Z79.82 Long term (current) use of aspirin; Z79.899 Other long term (current) drug therapy
CPT/HCPCS: 71045; 80048; 85025; 93005; 99285; A4216

== ENCOUNTER 2020-10-29 13:44 | Outpatient (CLI) | payer MEDICARE, SELFPAY ==
[2020-10-29 13:54] VITALS: BP 163/73; PULSE 63; RESP 20; TEMP 36.5; O2SAT 98; BMI 37.0
[2020-10-29 14:50] VITALS: BP 130/65; PULSE 64; RESP 20; TEMP 36.8; O2SAT 100
[2020-10-29 15:21] VITALS: BP 135/62; PULSE 63; RESP 18; O2SAT 100
[2020-10-29 15:50] VITALS: BP 148/72; PULSE 63; RESP 18; TEMP 37.4; O2SAT 100
[2020-10-29 16:20] VITALS: BP 148/67; PULSE 62; RESP 18; TEMP 36.4; O2SAT 100
== END 2020-10-29 16:27 | disposition home or self-care (01) ==
LOC: MS2OUT 13:45 → MS2 13:46
PROVIDERS: PCP Family Medicine; Referring Provider Nurse Practitioner Acute Care; Visit Provider Nurse Practitioner Acute Care
DX: U07.1 COVID-19 (principal)
CPT/HCPCS: 96365; J7050; M0239; Q0239

== ENCOUNTER 2020-10-31 17:27 | Emergency (ER) | payer MEDICARE, MEDICAID, SELFPAY ==
[2020-10-31 17:31] VITALS: PULSE 70; RESP 16; TEMP 35.9; O2SAT 99; BMI 38.5
[2020-10-31 17:35] VITALS: BP 155/94
--- NOTE | 2020-10-31 17:42 | EKG12_ITS ---
Test Reason : SOB Blood Pressure : / mmHG Vent. Rate : 066 BPM Atrial Rate : 066 BPM P-R Int : 166 ms QRS Dur : 070 ms QT Int : 402 ms P-R-T Axes : 065 021 047 degrees QTc Int : 421 ms Normal sinus rhythm Low voltage QRS Confirmed by CJ MARIA, ROYA ([id number]), newspaper managing editor ALEXIS HAWK ([id number]) on 11/02/2020 8:26:26 AM Referred By: JAZMYN Confirmed By:ROYA CORONA MD
--- NOTE | 2020-10-31 17:42 | CT_ITS ---
STUDY: CTA CHEST REASON FOR EXAM: Female, 55 years old. CHEST PAIN, COVID+, INCREASED SOB AND BODY ACHES RADIATION DOSAGE (If Supplied By Facility): CTDIvol = ( 10.88 ) mGy, DLP = ( 454.07 ) mGycm TECHNIQUE: The examination was performed with the intravenous administration of 75mL Isovue-370. Post-processing of the angiographic images was performed, with multiplanar reformation and 3D reconstruction. Individualized dose optimization techniques were used for this CT. COMPARISON: Chest x-ray October 31, 2019. Chest CT May 30, 2020 FINDINGS: Normal enhancement of the main pulmonary artery and right and left pulmonary arteries. Normal enhancement of the bilateral peripheral pulmonary arteries. There is no demonstrated pulmonary embolism. Normal thoracic aorta. 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 There is no demonstrated aortic dissection. Normal heart and pericardium. Normal mediastinum. Normal hilar regions. Normal visualized trachea and bronchi. The lungs are well expanded. There are mild rounded areas of groundglass and airspace opacity of the lungs on the left more than the right. Normal pleura. Normal chest wall structures. There are degenerative changes of thoracic spine. Normal visualized upper abdomen. CT/CTA Chest W/WO Contrast IMPRESSION: CTA chest examination, without a demonstrated pulmonary embolism or arterial dissection. Bilateral pneumonia. Electronically Signed: Benny Lee MD at 19:33 EST , Service support ,
--- NOTE | 2020-10-31 17:43 | ED.DCSUM_ITS ---
History of Present Illness Chief Complaint: Shortness of Breath Informant: Patient Narrative: 55-year-old female resenting with body aches, fever, chills. She states her T- max is 102 Fahrenheit. Patient was diagnosed on 1231 with Covid?19. She states this is the first dose of her symptoms. She went to get monoclonal antibodies previously. Patient states that she has a painful cough but otherwise does not have any pain in her chest. She also states that she is nauseous and having difficulty eating. She has type 2 diabetes and her blood sugars have been in the 60s to 70s. - Past Medical History (1) Anxiety and depression Status: Chronic (2) Diabetes mellitus, type II Status: Chronic (3) HLD (hyperlipidemia) Status: Chronic Past Medical History - Allergies and Home Meds Allergies/Adverse Reactions: Allergies Bleach (Sodium Hypochlorite) Allergy (Severe, Verified 10/31/20 17:35) HIVES amoxicillin Allergy (Verified 10/31/20 17:35) Hives Penicillins Allergy (Verified 10/31/20 17:35) Rash Sulfa (Sulfonamide Antibiotics) Adverse Reaction (Verified 10/31/20 17:35) Nausea/Vom/Diarrhea Primary Care Physician: Ranjeet Shine MD [Primary Care Provider] - Prior records reviewed: Yes Past Medical History: - - Reviewed in problem list, diabetes type 2 Surgical History: noncontributory, - - Hysterectomy, cataract surgery. Lives: Alone Smoking Status: Unknown if ever smoked Alcohol: None Drugs: None - Family History Maternal Family History: Family History (Last Reviewed 10/29/20 @ 09:37 by Vani Linton NP, ADMINISTRATIVE SERVICES OFFICER-C) Other ANGINA Anxiety Arthritis Blood clotting disorder Bowel disease Breast cancer CVA (cerebral vascular accident) Cancer Colon cancer Depression Diabetes Heart disease Hyperlipidemia Hypertension Melanoma Mental disorder Myocardial infarction Osteoporosis Ovarian cancer Parkinsons disease Thyroid disorder Family History: Reports: - - Patient notes a maternal and paternal family history of hypertension, hyperlipidemia, diabetes. Paternal Family History: Family History (Last Reviewed 10/29/20 @ 09:37 by Vani Linton NP, ADMINISTRATIVE SERVICES OFFICER-C) Other ANGINA Anxiety Arthritis Blood clotting disorder Bowel disease Breast cancer CVA (cerebral vascular accident) Cancer Colon cancer Depression Diabetes Heart disease Hyperlipidemia Hypertension Melanoma Mental disorder Myocardial infarction Osteoporosis Ovarian cancer Parkinsons disease Thyroid disorder Family History: Reports: - - Patient notes a maternal and paternal family history of hypertension, hyperlipidemia, diabetes. Review of Systems General: Reports: Chills, Fever, Malaise Eyes: Denies: Visual changes - bilaterally, Diplopia ENT: Denies: Rhinorrhea, Sore throat Cardiovascular: Denies: Chest pain, Palpitations Respiratory: Denies: Dyspnea, Cough, Dyspnea on exertion Genitourinary: Denies: Dysuria, Hematuria, Frequency Musculoskeletal: Reports: Myalgias. Denies: Arthralgias Skin: Denies: Rash, Wounds Neurological: Reports: Headache. Denies: Parasthesia, Numbness Psych: Denies: Depression, Anxiety Endocrine: Denies: Polyuria, Polydipsia Physical Exam Vital Signs/Narrative: Vital Signs Temp Pulse Resp BP Pulse Ox 10/31/20 17:35 155/94 H 10/31/20 17:31 96.7 F L 70 16 99 Inital Vital Signs reviewed: Yes General: Well nourished, No Acute Distress Head: Normocephalic, Atraumatic Eyes: Perrl, EOMI ENT: Moist mucous membranes, No rhinorrhea Cardiovascular: Regular rate, Regular rhythm Respiratory: No distress, CTA bilaterally Abdomen: Soft, Nontender, Nondistended Skin: Normal color, No rash. Negative for: Cyanosis, Diaphoresis Neurological: Alert, Oriented x3, Cranial nerves II-XII grossly intact Psychological: Normal affect, Normal Mood Diagnostic/Tx/Re-eval Clinical Impression(s) from Imaging Studies Chest CTA 10/31/20 17:42 IMPRESSION: CTA chest examination, without a demonstrated pulmonary embolism or arterial dissection. Bilateral pneumonia. Electronically Signed: Benny Lee MD at 19:33 EST , Service support , Chest X-Ray 10/31/20 18:17 IMPRESSION: Left midlung infiltrate or atelectasis. Electronically Signed: Benny Lee MD at 19:29 EST , Service support , Laboratory Data 10/31/20 10/31/20 18:05 18:05 WBC 4.9 RBC 4.63 Hgb 12.8 Hct 41.3 MCV 89.2 MCH 27.6 MCHC 31.0 L RDW Std Deviation 45.4 H RDW Coeff of Lidia 14.2 Plt Count 244 MPV 9.2 Immature Gran % (Auto) 0.400 Neut % (Auto) 52.6 Lymph % (Auto) 32.5 Archuleta % (Auto) 11.0 H Eos % (Auto) 3.1 Baso % (Auto) 0.4 Absolute Neuts (auto) 2.6 Absolute Lymphs (auto) 1.59 Nucleated RBC % 0 Sodium 141 Potassium 4.3 Chloride 107 Carbon Dioxide 30.0 Anion Gap 4 L BUN 17 Creatinine 1.04 H Estim Creat Clear Calc 44.93 Est GFR (MDRD) Af Amer 71 Est GFR (MDRD) Non-Af 59 L BUN/Creatinine Ratio 16.3 Glucose 105 Calcium 8.7 Troponin I < 0.015 - Rhythm Strip Rhythm Strip: Sinus Rhythm Rate: 66 - EKG Initial EKG Interpretation: Sinus Rhythm, No Acute Injury Pattern - Medical Decision Making 55-year-old female presenting with viral symptoms. She tested positive for Covid?19 already. Patient states that she has had a low-grade fever since her highest is 102. She also has body aches, nausea. Patient had initial EKG for dyspnea which is interpreted by myself is sinus rhythm without signs of ischemic change. Chest x-ray is interpreted by myself and agree with by radiology shows a left lower lobe infiltrate. Lab work shows no leukocytosis and the patient is lymphopenic. Renal function electrolytes are normal. Troponin is negative. Patient was treated for her nausea while in the ED. Patient counseled that her lab work is reassuring. She was given instructions on home care with Covid?19. All questions were answered. I believe the patient is stable to be discharged home at this time. Patient was given strict return precautions. Impression: 1. Covid?19 pneumonia 2. Nausea ED Disposition - Plan for ED Patient: Disposition: Home or Assisted Living Instructions: Coronavirus Disease 2019 (COVID-19): Overview, Coronavirus Disease 2019 (COVID-19): Caring for Yourself or Others, Preventing the Spread of Infection Understanding Isolation Procedures Prescriptions: Ondansetron [Zofran Odt] 4 mg PO Q8H PRN PRN #20 tab PRN Reason: Nausea Transmission Status: Pending to [facility] - [id number] Referrals: Ranjeet Shine MD [Primary Care Provider] -
[2020-10-31] MEDS: Aspirin 81 MG TAB.CHEW 324 MG PO (17:59)
[2020-10-31 18:06] VITALS: O2SAT 97
[2020-10-31 18:17] LABS: Absolute Lymphocyte Count 1.59 X10^3/uL (0.83-4.51); Absolute Neutrophil Count 2.6 X10^3/uL (2.0-7.7); Basophil# 0.02 X10^3/uL; Basophil% 0.4 % (0-1); Eosinophil# 0.15 X10^3/uL; Eosinophils% 3.1 % (0-5); Hematocrit 41.3 % (37-47); Hemoglobin 12.8 g/dL (12.0-15.0); Lymphocyte # 1.59 X10^3/ul (4.0); Lymphocyte % 32.5 % (19-41); Mean Corpuscular Hgb 27.6 pg (27.0-32.0); Mean Corpuscular Volume 89.2 fL (81-99); Mean Platelet Vol. 9.2 fl (6.2-12.0); Monocyte# 0.54 X10^3/uL; NRBC Flagged by Analyzer 0 % (0-5); Neutrophil # 2.57 X10^3/uL (2.7-7.7); Neutrophil % 52.6 % (47-70); Platelet Count 244 K/mm3 (150-450); RBC Distribution Width CV 14.2 % (11.6-14.6); RBC Distribution Width SD 45.4 fl (35.1-43.9); Red Blood Count 4.63 M/mm3 (4.2-5.4); White Blood Count 4.9 K/mm3 (4.4-11.0)
--- NOTE | 2020-10-31 18:17 | RAD_ITS ---
STUDY: X-RAY CHEST REASON FOR EXAM: Female, 55 years old. PT TESTED + FOR COVID 19 ON 10/25. REPORTS GENERALIZED BODY ACHES, SOB, AND CHEST PAIN. TECHNIQUE: Single AP portable view of the chest. COMPARISON: October 28, 2020 FINDINGS: There are monitoring devices. There is subtle left midlung increased opacity. There is no demonstrated pleural abnormality. Normal size heart. Normal mediastinum and skinny. Normal visualized pulmonary arteries. Normal visualized aortic arch and descending thoracic aorta. There are diffuse degenerative changes of the visualized thoracic spine. Normal visualized ribs, clavicles, and shoulders. There is no demonstrated abnormality of the visualized soft tissue structures of the upper abdomen. RAD/Chest 1 View (Portable) IMPRESSION: Left midlung infiltrate or atelectasis. Electronically Signed: Benny Lee MD at 19:29 EST , Service support ,
[2020-10-31 18:32] LABS: Anion Gap 4 (5-15); BUN 17 mg/dL (7-18); BUN/Creat Ratio 16.3 RATIO (10-20); Calcium,Total 8.7 mg/dL (8.5-10.1); Chloride 107 mmol/L (98-107); Creatinine, Serum 1.04 mg/dL (0.55-1.02); EST Glomerular Filtration Rate 59 mL/min (>60); Est Glom Filt Rate - Afr Amer 71 mL/min (>60); Estimated Creatinine Clearance 44.93 ml/min; Glucose 105 mg/dL (74-106); Potassium 4.3 mmol/L (3.5-5.1); Sodium Level 141 mmol/L (136-145)
[2020-10-31 19:27] VITALS: BP 163/85; PULSE 62; RESP 15; O2SAT 100
[2020-10-31 20:19] VITALS: BP 163/109; PULSE 61; RESP 15; O2SAT 98
== END 2020-10-31 20:25 | disposition home or self-care (01) ==
PROVIDERS: Emergency Provider Student in an Organized Health Care Education/Training Program; PCP Family Medicine
DX: U07.1 COVID-19 (principal); J12.82 Pneumonia due to coronavirus disease 2019; R11.0 Nausea; E11.9 Type 2 diabetes mellitus without complications; E78.5 Hyperlipidemia, unspecified; F32.9 Major depressive disorder, single episode, unspecified; F41.9 Anxiety disorder, unspecified; Z79.82 Long term (current) use of aspirin; Z79.4 Long term (current) use of insulin; Z79.899 Other long term (current) drug therapy
CPT/HCPCS: 71045; 71275; 80048; 84484; 85025; 93005; 99285; Q9967

== ENCOUNTER 2020-11-27 12:37 | Emergency (ER) | payer MEDICARE, MEDICAID, SELFPAY ==
[2020-11-27 12:38] VITALS: BP 144/118; PULSE 73; RESP 14; TEMP 36.7; O2SAT 97; BMI 38.7
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
[2020-11-27 12:48] VITALS: TEMP 36.7
[2020-11-27] MEDS: Acetaminophen 500 MG Tablet 1000 MG PO (13:15)
[2020-11-27 13:53] VITALS: BP 119/67; PULSE 72; RESP 16; O2SAT 97
== END 2020-11-27 14:43 | disposition home or self-care (01) ==
PROVIDERS: Emergency Provider Emergency Medicine; PCP Family Medicine
DX: T69.1XXA Chilblains, initial encounter (principal); X31.XXXA Exposure to excessive natural cold, initial encounter; W00.0XXA Fall on same level due to ice and snow, initial encounter; Y93.01 Activity, walking, marching and hiking; Y92.9 Unspecified place or not applicable; Y99.9 Unspecified external cause status; E11.9 Type 2 diabetes mellitus without complications; I10 Essential (primary) hypertension; E78.5 Hyperlipidemia, unspecified; E03.9 Hypothyroidism, unspecified; F32.9 Major depressive disorder, single episode, unspecified; F41.9 Anxiety disorder, unspecified; E66.9 Obesity, unspecified; Z79.82 Long term (current) use of aspirin; Z79.4 Long term (current) use of insulin; Z79.899 Other long term (current) drug therapy
CPT/HCPCS: 99284

== ENCOUNTER 2021-04-25 16:05 | Emergency (ER) | payer MEDICARE, MEDICAID, SELFPAY ==
[2021-04-25 16:05] VITALS: BP 182/99; PULSE 66; RESP 16; TEMP 36.7; O2SAT 99; BMI 40.8
--- NOTE | 2021-04-25 16:49 | RAD_ITS ---
STUDY: X-RAY - RIGHT KNEE REASON FOR EXAM: Female, 56 years old. Injury/Pain TECHNIQUE: 4 view(s) of the knee. COMPARISON: None. FINDINGS: Normal visualized distal femur. Normal visualized proximal tibia and fibula. Normal proximal tibiofibular articulation. There is no demonstrated fracture. Normal medial femorotibial compartment. Normal lateral femorotibial compartment. Normal patellofemoral articulation. There is no demonstrated joint effusion. The soft tissue structures are unremarkable. RAD/Knee 4 or More Views IMPRESSION: Normal x-ray examination of the knee. Electronically Signed: Jose Rowan MD at 17:57 EDT , Service support ,
[2021-04-25] MEDS: Diphth,Pertuss(Acell),Tet Vac 0.5 ML Vial IM (17:03)
[2021-04-25] MEDS: HYDROcodone Bitartrate/Apap 5/325 Tablet PO (17:04)
--- NOTE | 2021-04-25 17:30 | RAD_ITS ---
STUDY: X-RAY - CERVICAL SPINE REASON FOR EXAM: Female, 56 years old. Injury/Pain TECHNIQUE: 3 view(s) of the cervical spine were obtained. COMPARISON: None FINDINGS: Normal anterior atlantoaxial articulation. Normal odontoid process. Normal cervical lordosis. Normal vertebral bodies and endplates. Normal disc space heights. The soft tissue structures are unremarkable. There is no demonstrated fracture of the cervical spine. RAD/Cerv Spine 2 or 3 Views IMPRESSION: Normal x-ray examination of the visualized cervical spine. Electronically Signed: Jose Rowan MD at 17:56 EDT , Service support ,
--- NOTE | 2021-04-25 17:44 | ED.VIS.FALL ---
HPI HPI - Fall History of Present Illness Chief Complaint: Fall Informant: patient and family Occured/Mechanism Occurred: Today Mechanism/Context: Yes same level fall and Yes slip Pain/Injury Pain Location: head, face and lower extremity (Right knee) Worsened by: Movement Relieved by: Closing her eyes Associated Symptoms Associated Symptoms: Negative for Parasthesias, Weakness and Loss of consciousness Narrative Narrative: Patient presents after a fall that occurred today. Patient slipped while getting out of the car. Patient fell forward. Patient landed on her right knee. Patient did hit her face but denies any loss of consciousness. Patient denies any paresthesias or weakness. Patient does admit to some mild neck pain. Patient also admits to a headache over the right frontal area. Patient states her last tetanus was more than 10 years ago. Tetanus Immunization: >10 years [facility] Medical History (Updated 04/25/21 @ 18:[address] Jorge Alberto Castillo, ) Arthritis Back problem Cataracts, bilateral Diabetes GERD (gastroesophageal reflux disease) Hearing problem High triglycerides History of migraine headaches Hyperlipidemia Hypertension Neuropathy Seasonal allergies Vision problems Home Medications atenolol 100 mg PO DAILY 02/24/18 [History Last Taken 02/17/19] atorvastatin 20 mg PO QHS 02/24/18 [History Last Taken 02/17/19] duloxetine 60 mg PO DAILY 02/24/18 [History Last Taken 02/17/19] empagliflozin 10 mg PO DAILY 02/24/18 [History Last Taken 02/17/19] estradiol 1 mg PO DAILY 02/24/18 [History Last Taken 02/17/19] levothyroxine 50 mcg PO DAILY 02/24/18 [History Last Taken 02/17/19] lisinopril 20 mg PO DAILY 02/24/18 [History Last Taken 02/17/19] metformin 1,000 mg PO BIDCM 02/24/18 [History Last Taken 02/17/19] pioglitazone 45 mg PO DAILY 02/24/18 [History Last Taken 02/17/19] sitagliptin 100 mg PO DAILY 02/24/18 [History Last Taken 02/17/19] aspirin 81 mg PO DAILY 02/17/19 [History Last Taken 02/17/19] cholecalciferol (vitamin D3) 50 mcg (2,000 unit) capsule 2,000 unit PO DAILY 04/01/19 [History Last Taken Unknown] pantoprazole 40 mg tablet,delayed release 40 mg PO BID tab 04/01/19 [History Last Taken Unknown] nystatin 1 applic TOPICAL TID #1 bottle 04/04/19 [Rx Last Taken Unknown] naproxen 500 mg PO BID PRN #20 tab 06/20/19 [Rx Last Taken Unknown] insulin glargine 30 unit SQ DAILY #0 05/31/20 [Rx Last Taken 02/17/19] ondansetron 4 mg PO Q8H PRN PRN #10 tab 10/25/20 [Rx Last Taken Unknown] ibuprofen 200 mg capsule 200 mg PO Q6H PRN 10/29/20 [History Last Taken Unknown] Allergy/AdvReac Type Severity Reaction Status Date / Time Bleach (Sodium Hypochlorite) Allergy Severe HIVES Verified 04/25/21 16:08 amoxicillin Allergy Hives Verified 04/25/21 16:08 Penicillins Allergy Rash Verified 04/25/21 16:08 Sulfa (Sulfonamide AdvReac Nausea/Vom/ Verified 04/25/21 16:08 Antibiotics) Diarrhea Family History (Reviewed 10/29/20 @ 09:37 by Vani Linton PEST CONTROLLER ASSISTANT, PEST CONTROLLER ASSISTANT-C) Other ANGINA Anxiety Arthritis Blood clotting disorder Bowel disease Breast cancer CVA (cerebral vascular accident) Cancer Colon cancer Depression Diabetes Heart disease Hyperlipidemia Hypertension Melanoma Mental disorder Myocardial infarction Osteoporosis Ovarian cancer Parkinsons disease Thyroid disorder Surgical History H/O: hysterectomy History of cataract surgery Social History Smoking Status: Never smoker substance use type: does not use what type of physical activity do you participate in: walking ROS ROS ED Constitutional Constitutional ED: Denies chills or fever(s) Eyes Eyes: Denies blurry vision or change in vision ENT ENT ED: Denies rhinorrhea or sore throat Cardiovascular Cardiovascular: Denies chest pain or palpitations Respiratory/Chest Respiratory/Chest: Denies cough or dyspnea Gastrointestinal Gastrointestinal: Denies nausea or vomiting Genitourinary Genitourinary ED: Denies dysuria or hematuria Musculoskeletal Musculoskeletal: Reports neck pain; Denies back pain Integumentary Reports Abrasions; Denies abscess or rash Neurologic Neurologic: Reports headache(s); Denies weakness Allergic/Immunologic Allergic/Immunologic ED: Denies mouth swelling or urticaria EXAM Physical Exam Const Vital Signs: 04/25/21 16:05 04/25/21 17:03 Temperature 98.1 F Temperature Source Oral Pulse Rate 66 Respiratory Rate 16 Respiratory Effort Normal Non-Labored Respiratory Depth Normal Respiratory Pattern Normal Blood Pressure 182/99 H Blood Pressure Mean 126 Pulse Ox 99 Oxygen Delivery Method Room Air Room Air Positive well nourished and well developed General Appearance ED: well developed HEENT Reports moist mucous membranes HEENT Narrative: There are superficial abrasions across the bridge of the nose and upper lip. Teeth are intact. There is no nasal septal hematoma Neck supple and no JVD Neck Narrative: There is some mild tenderness of the cervical spine and paraspinal muscles. There is no bony crepitance or step-off. There is good range of motion. General: tenderness Resp normal respiratory effort and clear to auscultation bilaterally Cardio regular rate, regular rhythm and no murmurs GI normal to inspection, nondistended, normoactive bowel sounds and non-tender Palpation: soft Extremity normal to inspection Extremity Narrative: There is tenderness over the anterior aspect of the right knee. There is no effusion. There is no deformity. Extensor mechanism is intact. Range of motion was limited in flexion of the right knee secondary to pain. Sensation was intact to light touch bilateral in the lower extremities. General Extremety ED: Yes tenderness; Negative for edema General Extremity: Negative for edema Neuro oriented x3, CN's II-XII intact bilaterally and no sensory deficits noted Sensorium / Orientation: alert Motor Exam: strength 5/5 throughout Psych mental status grossly normal Skin no rashes or lesions noted MDM MDM MDM Narrative Medical decision making narrative: Patient was given tetanus booster. X-rays of the cervical spine were obtained. There are 4 views. My interpretation, there is no acute fracture, spondylolisthesis, or spondylolysis. There is no soft tissue swelling. X-rays of the right knee were obtained. There are 4 views. On my interpretation, there is no acute fracture or dislocation. There is no effusion. There is no soft tissue swelling. Radiologist also interpreted the x-rays and agrees. Patient was given a dose of [place] here. Patient is feeling better on reevaluation. Patient was instructed to ice and elevate the right knee. Patient was instructed to use bacitracin or Neosporin ointment to the abrasions. Patient was instructed to follow-up with her primary care physician in 5 to 7 days. Patient understood and was agreeable with the plan. All questions were answered. Radiography Diagnostic Testing: Radiology Impression Knee X-Ray 04/25/21 16:49 IMPRESSION: Normal x-ray examination of the knee. Electronically Signed: Jose Rowan MD at 17:57 EDT , Service support , Cervical Spine X-Ray 04/25/21 17:30 IMPRESSION: Normal x-ray examination of the visualized cervical spine. Electronically Signed: Jose Rowan MD at 17:56 EDT , Service support , Discharge Plan Triage Chief Complaint: Fall ED Provider: Jorge Alberto Castillo Dx/Rx/DC Orders Clinical Impression: Fall, Abrasion of face, Contusion of right knee, initial encounter Instructions: ED Abrasion, ED Contusion, Lower Extremity, ED Head Injury (Adult) Prescriptions: No Action pantoprazole 40 mg tablet,delayed release (DR/EC) 40 mg PO BID RF: 0 cholecalciferol (vitamin D3) 2,000 unit capsule 2,000 unit PO DAILY RF: 0 ibuprofen 200 mg capsule 200 mg PO Q6H PRN (Reason: Pain 1-10 Or Fever) RF: 0 atorvastatin 20 MG tablet 20 mg PO QHS RF: 0 atenolol 100 MG tablet 100 mg PO DAILY RF: 0 lisinopril 20 MG tablet 20 mg PO DAILY RF: 0 pioglitazone 45 MG tablet 45 mg PO DAILY RF: 0 estradiol 1 MG tablet 1 mg PO DAILY RF: 0 metformin 1,000 MG tablet 1,000 mg PO BIDCM RF: 0 levothyroxine 125 MCG tablet 50 mcg PO DAILY RF: 0 duloxetine 60 MG capsule 60 mg PO DAILY RF: 0 sitagliptin 100 MG tablet 100 mg PO DAILY RF: 0 empagliflozin 10 MG tablet 10 mg PO DAILY RF: 0 aspirin 81 MG tablet,chewable 81 mg PO DAILY RF: 0 nystatin 1 APPLIC bottle 1 applic TOPICAL TID Qty: 1 RF: 0 naproxen 500 MG tablet 500 mg PO BID PRN Qty: 20 RF: 0 insulin glargine 100 UNITS/ML insulin pen 30 unit SQ DAILY Qty: 0 RF: 0 ondansetron 4 MG tablet 4 mg PO Q8H PRN PRN (Reason: Nausea) Qty: 10 RF: 0 Primary Care Provider: Ranjeet Shine Referrals: Ranjeet Shine MD [Primary Care Provider] - 5-7 Days Disposition Disposition: Home, Self Care
[2021-04-25 18:53] VITALS: BP 146/83; PULSE 63; RESP 16; O2SAT 94
== END 2021-04-25 19:06 | disposition home or self-care (01) ==
PROVIDERS: Emergency Provider Emergency Medicine; PCP Family Medicine
DX: S80.01XA Contusion of right knee, initial encounter (principal); S00.81XA Abrasion of other part of head, initial encounter; M54.2 Cervicalgia; Z23 Encounter for immunization; V48.4XXA Person boarding or alighting a car injured in noncollision transport accident, initial encounter; Y93.9 Activity, unspecified; Y92.9 Unspecified place or not applicable; Y99.9 Unspecified external cause status; E11.40 Type 2 diabetes mellitus with diabetic neuropathy, unspecified; E78.5 Hyperlipidemia, unspecified; I10 Essential (primary) hypertension; K21.9 Gastro-esophageal reflux disease without esophagitis; Z79.4 Long term (current) use of insulin; Z79.82 Long term (current) use of aspirin; Z79.899 Other long term (current) drug therapy
CPT/HCPCS: 72040; 73564; 90471; 90715; 99284

== ENCOUNTER 2021-07-10 07:06 | Emergency (ER) | payer MEDICARE, MEDICAID, SELFPAY ==
[2021-07-10 07:07] VITALS: BP 125/69; PULSE 70; RESP 13; TEMP 36.3; O2SAT 98; BMI 39.9
--- NOTE | 2021-07-10 07:17 | EKG12_ITS ---
Test Reason : REPEAT Blood Pressure : / mmHG Vent. Rate : 066 BPM Atrial Rate : 066 BPM P-R Int : 172 ms QRS Dur : 078 ms QT Int : 408 ms P-R-T Axes : 063 012 037 degrees QTc Int : 427 ms Normal sinus rhythm Normal ECG Confirmed by SENG VALLE MD ([id number]), newspaper or periodical editor ALEXIS HAWK ([id number]) on 07/11/2021 10:28:55 AM Referred By: PL Confirmed By:SENG VALLE MD
--- NOTE | 2021-07-10 07:21 | ED.VIS.CHEST ---
HPI History of Present Illness Chief Complaint: Chest Pain Informant: patient Narrative Narrative: an area of central sternal chest pain. She describes it as sharp and burning.Patient presents with It was there when she woke up this morning. It was not there last night. However, does not radiate to the arms. It is better if she stays still. It is worse if she moves especially moving her right arm. She might have gotten a little short of breath but she states she has had shortness of breath ever since she had Covid She has had no nausea vomiting or diaphoresis. at the end of last year. She does have a history of getting chest pain but does not know what causes it. However, each episode is a little different. She states she has had a stress test but it has been a long time and she does not know when that was. She does have risk factors of cholesterol, diabetes and blood pressure. She is on all her medicines for this. She denies any recent travel, surgery, immobilization, personal or family history of DVT or PE. Her family history lists clotting disorder but she denied this to me. She did state that her mother had a mini stroke at about 78 years old but no other clotting problems that I can get from her. Moving makes the pain worse. Staying still makes it better. She is not having abdominal symptoms although she has had that before with her chest pain. She did have a fall but that was several months ago. She does not think she hurt her chest. [facility] Medical History (Updated 07/10/21 @ 11:[address] Nicholas Rubi MD) Arthritis Back problem Cataracts, bilateral Diabetes GERD (gastroesophageal reflux disease) Hearing problem High triglycerides History of migraine headaches Hyperlipidemia Hypertension Neuropathy Seasonal allergies Vision problems Home Medications atenolol 100 mg PO DAILY 02/24/18 [History Last Taken 02/17/19] atorvastatin 20 mg PO QHS 02/24/18 [History Last Taken 02/17/19] duloxetine 60 mg PO DAILY 02/24/18 [History Last Taken 02/17/19] empagliflozin 10 mg PO DAILY 02/24/18 [History Last Taken 02/17/19] estradiol 1 mg PO DAILY 02/24/18 [History Last Taken 02/17/19] levothyroxine 50 mcg PO DAILY 02/24/18 [History Last Taken 02/17/19] lisinopril 20 mg PO DAILY 02/24/18 [History Last Taken 02/17/19] metformin 1,000 mg PO BIDCM 02/24/18 [History Last Taken 02/17/19] pioglitazone 45 mg PO DAILY 02/24/18 [History Last Taken 02/17/19] sitagliptin 100 mg PO DAILY 02/24/18 [History Last Taken 02/17/19] aspirin 81 mg PO DAILY 02/17/19 [History Last Taken 02/17/19] cholecalciferol (vitamin D3) 50 mcg (2,000 unit) capsule 2,000 unit PO DAILY 04/01/19 [History Last Taken Unknown] pantoprazole 40 mg tablet,delayed release 40 mg PO BID tab 04/01/19 [History Last Taken Unknown] nystatin 1 applic TOPICAL TID #1 bottle 04/04/19 [Rx Last Taken Unknown] naproxen 500 mg PO BID PRN #20 tab 06/20/19 [Rx Last Taken Unknown] insulin glargine 30 unit SQ DAILY #0 05/31/20 [Rx Last Taken 02/17/19] ondansetron 4 mg PO Q8H PRN PRN #10 tab 10/25/20 [Rx Last Taken Unknown] ibuprofen 200 mg capsule 200 mg PO Q6H PRN 10/29/20 [History Last Taken Unknown] Allergy/AdvReac Type Severity Reaction Status Date / Time Bleach (Sodium Hypochlorite) Allergy Severe HIVES Verified 07/10/21 08:30 amoxicillin Allergy Hives Verified 07/10/21 08:30 Penicillins Allergy Rash Verified 07/10/21 08:30 Sulfa (Sulfonamide AdvReac Nausea/Vom/ Verified 07/10/21 08:30 Antibiotics) Diarrhea Family History Other ANGINA Anxiety Arthritis Blood clotting disorder Bowel disease Breast cancer CVA (cerebral vascular accident) Cancer Colon cancer Depression Diabetes Heart disease Hyperlipidemia Hypertension Melanoma Mental disorder Myocardial infarction Osteoporosis Ovarian cancer Parkinsons disease Thyroid disorder Surgical History H/O: hysterectomy History of cataract surgery Social History Smoking Status: Never smoker substance use type: does not use what type of physical activity do you participate in: walking ROS ROS ED Constitutional Constitutional ED: Denies chills or fever(s) Eyes Eyes: Denies change in vision ENT ENT ED: Denies rhinorrhea or sore throat Cardiovascular Cardiovascular: Reports as per HPI and chest pain; Denies palpitations or racing heartbeat Respiratory/Chest Respiratory/Chest: Reports dyspnea and other Details: See history of present illness. ; Denies cough or sputum Gastrointestinal Gastrointestinal: Denies abdominal pain, nausea or vomiting Genitourinary Genitourinary ED: Denies hematuria Musculoskeletal Musculoskeletal: Denies arthralgias, back pain or neck pain Integumentary Denies rash Neurologic Neurologic: Denies paresthesias or weakness Psychiatric Psychiatric: Reports anxiety and depression Endocrine Endocrinology: Denies polydipsia or polyuria Hematologic/Lymphatic Hematologic/Lymphatic: Denies easy bleeding or easy bruising Allergic/Immunologic Allergic/Immunologic ED: Denies urticaria EXAM Physical Exam Const Vital Signs: 07/10/21 07:07 07/10/21 07:56 07/10/21 08:24 Temperature 97.3 F L Temperature Source Temporal Pulse Rate 70 Respiratory Rate 13 Respiratory Effort Non-Labored Short of Breath Blood Pressure 125/69 H Blood Pressure Mean 87 Pulse Ox 98 97 Oxygen Delivery Method Room Air Room Air 07/10/21 09:16 07/10/21 11:00 07/10/21 11:27 Temperature Temperature Source Pulse Rate 68 82 66 Respiratory Rate 13 16 14 Respiratory Effort Blood Pressure 119/96 H 122/76 H Blood Pressure Mean 103 Pulse Ox 97 97 98 Oxygen Delivery Method Room Air Room Air Positive well nourished and well developed General Appearance ED: well developed and NAD; Negative for pallor HEENT normocephalic and atraumatic Eyes General Eye ED: Negative for pale conjunctiva Neck No no JVD Chest Wall inspection of chest normal Chest Narrative: Patient actually lets out a small scream when I pressed the mid to lower sternum. There is an area about 3 cm around that seems tender. She states this reproduces her pain. Yet there is no erythema or swelling. I see no rash. There is no step-off. There is no fluctuance or crepitance. This is the same area that hurts if I have her bring her elbows forward in front of her. She states this is the pain she feels and it is highly reproducible on exam. Resp normal respiratory effort and clear to auscultation bilaterally Resp Narrative: No indication of pain with deep breath. Effort and Inspection: respiratory distress Cardio regular rate, regular rhythm and no murmurs Rate: other Other Details: Heart is regular with a rate about 60-70. No murmur gallop or rub. GI normal to inspection, nondistended, normoactive bowel sounds, soft to palpation and non-tender Back/Spine no CVA tenderness Extremity normal to inspection General Extremety ED: Negative for edema, pulses abnormal or tenderness General Extremity: Negative for edema or pulses abnormal Neuro oriented x3 Sensorium / Orientation: awake and alert Psych mental status grossly normal Skin no rashes or lesions noted General Skin Exam: Negative for pallor Heart Score History: Slightly/Non-Suspicious ECG: Normal Age: >45 - <65 years Risk Factors: >/= 3 Risk Factors or History of CAD Troponin: </= Normal Limit Score: 3 MDM MDM MDM Narrative Medical decision making narrative: Patient's blood work including CBC electrolytes showed no acute process. Troponin was negative at 4. We rechecked it is 5. I rechecked her EKG there is no significant interval change. I rechecked the patient. She is very comfortable. If you press on that spot is a little sore. There is still no skin changes. Her abdomen is clearly benign. She has a heart score of 3 but I do not think this is likely a cardiac type chest pain. I think this is musculoskeletal. I think ice rest [id number] meds should be appropriate. She will follow up with her physician. If she develops fevers, worsening pain, trouble breathing or other concerns she should return. Lab Data Attestation: I reviewed the patient's lab results. Labs: Laboratory Results - last 24 hr 07/10/21 07/10/21 07/10/21 06:48 06:48 09:21 WBC 7.5 RBC 4.89 Hgb 13.3 Hct 43.0 MCV 87.9 MCH 27.2 MCHC 30.9 L RDW Std Deviation 48.6 H RDW Coeff of Lidia 15.1 H Plt Count 274 MPV 9.8 Immature Gran % (Auto) 0.400 Neut % (Auto) 52.1 Lymph % (Auto) 33.5 [place] % (Auto) 11.3 H Eos % (Auto) 2.4 Baso % (Auto) 0.3 Absolute Neuts (auto) 3.9 Absolute Lymphs (auto) 2.52 Nucleated RBC % 0 Sodium 139 Potassium 4.4 Chloride 105 Carbon Dioxide 30.0 Anion Gap 4 L BUN 20 H Creatinine 0.83 Estim Creat Clear Calc 55.66 Est GFR (MDRD) Af Amer 92 Est GFR (MDRD) Non-Af 76 BUN/Creatinine Ratio 24.0 H Glucose 71 L Calcium 8.9 Troponin I High Sens 4 5 Radiography Diagnostic Testing: Radiology Impression Chest X-Ray 07/10/21 08:06 IMPRESSION: No acute cardiopulmonary findings Electronically Signed: Jorge Alberto Lerner DO at 8:22 EDT Tel , Service support , EKG Initial EKG: Comments: EKG done for indication chest pain read by me shows a normal sinus rhythm. Overall rate of 66. No ectopy. No acute ST elevation depression. LA interval, QRS duration and QTc are normal. Discharge Plan Triage Chief Complaint: Chest Pain ED Provider: Nicholas Rubi Dx/Rx/DC Orders Clinical Impression: Chest pain Instructions: ED Chest Pain, Uncertain Cause Prescriptions: No Action pantoprazole 40 mg tablet,delayed release (DR/EC) 40 mg PO BID RF: 0 cholecalciferol (vitamin D3) 2,000 unit capsule 2,000 unit PO DAILY RF: 0 ibuprofen 200 mg capsule 200 mg PO Q6H PRN (Reason: Pain 1-10 Or Fever) RF: 0 atorvastatin 20 MG tablet 20 mg PO QHS RF: 0 atenolol 100 MG tablet 100 mg PO DAILY RF: 0 lisinopril 20 MG tablet 20 mg PO DAILY RF: 0 pioglitazone 45 MG tablet 45 mg PO DAILY RF: 0 estradiol 1 MG tablet 1 mg PO DAILY RF: 0 metformin 1,000 MG tablet 1,000 mg PO BIDCM RF: 0 levothyroxine 125 MCG tablet 50 mcg PO DAILY RF: 0 duloxetine 60 MG capsule 60 mg PO DAILY RF: 0 sitagliptin 100 MG tablet 100 mg PO DAILY RF: 0 empagliflozin 10 MG tablet 10 mg PO DAILY RF: 0 aspirin 81 MG tablet,chewable 81 mg PO DAILY RF: 0 nystatin 1 APPLIC bottle 1 applic TOPICAL TID Qty: 1 RF: 0 naproxen 500 MG tablet 500 mg PO BID PRN Qty: 20 RF: 0 insulin glargine 100 UNITS/ML insulin pen 30 unit SQ DAILY Qty: 0 RF: 0 ondansetron 4 MG tablet 4 mg PO Q8H PRN PRN (Reason: Nausea) Qty: 10 RF: 0 Primary Care Provider: Ranjeet Shine Referrals: Ranjeet Shine MD [Primary Care Provider] - 3-5 Days Disposition Disposition: Home, Self Care Discharge Date/Time: 07/10/21 11:29
[2021-07-10 07:27] LABS: Absolute Lymphocyte Count 2.52 X10^3/uL (0.83-4.51); Absolute Neutrophil Count 3.9 X10^3/uL (2.0-7.7); Basophil# 0.02 X10^3/uL; Basophil% 0.3 % (0-1); Eosinophil# 0.18 X10^3/uL; Eosinophils% 2.4 % (0-5); Hemoglobin 13.3 g/dL (12.0-15.0); Lymphocyte # 2.52 X10^3/ul (0.83-4.51); Lymphocyte % 33.5 % (19-41); Mean Corp Hgb Conc 30.9 g/dL (32-36); Mean Corpuscular Hgb 27.2 pg (27.0-32.0); Mean Corpuscular Volume 87.9 fL (81-99); Mean Platelet Vol. 9.8 fl (6.2-12.0); Monocyte# 0.85 X10^3/uL; Monocyte% 11.3 % (0-10); NRBC Flagged by Analyzer 0 % (0-5); Neutrophil # 3.93 X10^3/uL (2.7-7.7); Neutrophil % 52.1 % (47-70); Platelet Count 274 K/mm3 (150-450); RBC Distribution Width CV 15.1 % (11.6-14.6); RBC Distribution Width SD 48.6 fl (35.1-43.9); Red Blood Count 4.89 M/mm3 (4.2-5.4); White Blood Count 7.5 K/mm3 (4.4-11.0)
[2021-07-10] MEDS: Aspirin 81 MG TAB.CHEW 324 MG PO (07:45)
[2021-07-10] MEDS: Morphine 4 MG/ML Syringe IV (07:45)
[2021-07-10 07:56] VITALS: O2SAT 97
--- NOTE | 2021-07-10 08:06 | RAD_ITS ---
STUDY: X-RAY CHEST REASON FOR EXAM: Female, 56 years old. chest pain TECHNIQUE: Single AP portable view of the chest. COMPARISON: 10/31/2020. FINDINGS: Cardiac silhouette unremarkable. Pulmonary vascularity unremarkable. Aorta unremarkable. No focal patchy airspace opacities. No pleural effusions. Upper abdomen unremarkable. Osseous structures intact. No pneumothorax. RAD/Chest 1 View (Portable) IMPRESSION: No acute cardiopulmonary findings Electronically Signed: Jorge Alberto Lerner DO at 8:22 EDT Tel , Service support ,
[2021-07-10 08:16] LABS: Anion Gap 4 (5-15); BUN 20 mg/dL (7-18); Calcium,Total 8.9 mg/dL (8.5-10.1); Chloride 105 mmol/L (98-107); Creatinine, Serum 0.83 mg/dL (0.55-1.02); EST Glomerular Filtration Rate 76 mL/min (>60); Est Glom Filt Rate - Afr Amer 92 mL/min (>60); Estimated Creatinine Clearance 55.66 ml/min; Glucose 71 mg/dL (74-106); Potassium 4.4 mmol/L (3.5-5.1); Sodium Level 139 mmol/L (136-145); Troponin-I HS 4 pg/mL (3.0-54.0)
--- NOTE | 2021-07-10 09:13 | EKG12_ITS ---
Test Reason : CP Blood Pressure : / mmHG Vent. Rate : 066 BPM Atrial Rate : 066 BPM P-R Int : 128 ms QRS Dur : 068 ms QT Int : 406 ms P-R-T Axes : 044 046 088 degrees QTc Int : 425 ms Normal sinus rhythm Normal ECG Confirmed by SENG VALLE MD ([id number]), digital editor ALEXIS HAWK ([id number]) on 07/11/2021 10:29:09 AM Referred By: PL Confirmed By:SENG VALLE MD
[2021-07-10 09:16] VITALS: PULSE 68; RESP 13; O2SAT 97
[2021-07-10 09:49] LABS: Troponin-I HS 5 pg/mL (3.0-54.0)
[2021-07-10 11:00] VITALS: BP 119/96; PULSE 82; RESP 16; O2SAT 97
[2021-07-10 11:27] VITALS: BP 122/76; PULSE 66; RESP 14; O2SAT 98
--- NOTE | 2021-07-10 11:28 | ED.RN ---
REVIEWED D/C INSTRUCTIONS, FOLLOW UP CARE, AND S/S THAT WOULD WARRANT A RETURN TO THE ED WITH PT. PT VERBALIZED AN UNDERSTANDING AND DENIES FURTHER QUESTIONS FOR THIS RN. PT SKIN P/W/D, RESP EVEN AND UNLABORED, PT A&O X 3, NO DISTRESS NOTED. PT AMBULATED OUT OF ED, GAIT STEADY.
== END 2021-07-10 11:29 | disposition home or self-care (01) ==
PROVIDERS: Emergency Provider Emergency Medicine; PCP Family Medicine
DX: R07.89 Other chest pain (principal); E11.9 Type 2 diabetes mellitus without complications; I10 Essential (primary) hypertension; E78.00 Pure hypercholesterolemia, unspecified; E78.1 Pure hyperglyceridemia; E78.5 Hyperlipidemia, unspecified; E11.40 Type 2 diabetes mellitus with diabetic neuropathy, unspecified; M19.90 Unspecified osteoarthritis, unspecified site; K21.9 Gastro-esophageal reflux disease without esophagitis; F32.9 Major depressive disorder, single episode, unspecified; F41.9 Anxiety disorder, unspecified; Z79.82 Long term (current) use of aspirin; Z79.4 Long term (current) use of insulin; Z79.890 Hormone replacement therapy; Z79.899 Other long term (current) drug therapy
CPT/HCPCS: 71045; 80048; 84484; 85025; 93005; 96374; 99285; A4216

== ENCOUNTER 2021-08-28 15:02 | Emergency (ER) | payer MEDICARE, MEDICAID, SELFPAY ==
[2021-08-28 15:02] VITALS: BP 162/86; PULSE 71; RESP 21; TEMP 36.5; O2SAT 97; BMI 40.5
[2021-08-28 15:15] LABS: Bedside Glucose 59 mg/dL (70-110)
--- NOTE | 2021-08-28 15:34 | EKG12_ITS ---
Test Reason : ABDOMINAL PAIN Blood Pressure : / mmHG Vent. Rate : 072 BPM Atrial Rate : 072 BPM P-R Int : 162 ms QRS Dur : 064 ms QT Int : 378 ms P-R-T Axes : 052 032 041 degrees QTc Int : 413 ms Normal sinus rhythm Normal ECG Confirmed by MITCHEL MARIA, JUANJOSE ([id number]), mapping editor ALEXIS HAWK ([id number]) on 09/02/2021 10:03:47 A M Referred By: GERDA Confirmed By:NICCI GRULLON MD
--- NOTE | 2021-08-28 15:35 | EX.ED.DYSGE1 ---
HPI History of Present Illness Chief Complaint: Abd Pain Informant: patient Narrative Narrative: Patient is a 56-year-old female with history of insulin-dependent diabetes mellitus, anxiety, depression, hypertension hyperlipidemia presenting for abdominal discomfort. Patient states she has been feeling good this morning has had nasal congestion, cough and has been blowing her nose a lot. She subsequently had 2 episodes of epistaxis from blowing her nose. She had an upset stomach and describes as feeling nauseous. She denies any abdominal pain. She called EMS and was found to be hypoglycemic. Patient was clammy and diaphoretic per EMS. Her blood sugar was 52. They gave her oral glucose and she then received orange juice, peanut butter and further food in our emergency room. On arrival she was 59 for her blood sugar. Patient states that she took her insulin this morning but did not eat because she was not feeling good. She has any chest pain. She denies any fever and states when she took her temperature this morning was 95.5 ?F. She is also complaining of sinus headache and a sore throat. She took Tylenol prior to arrival with no relief of her symptoms. No other complaints at this time. [facility] Medical History (Updated 08/28/21 @ 18:[address] Imani Cross, DO) Arthritis Back problem Cataracts, bilateral Diabetes GERD (gastroesophageal reflux disease) Hearing problem High triglycerides History of migraine headaches Hyperlipidemia Hypertension Neuropathy Seasonal allergies Vision problems Home Medications atenolol 100 mg PO DAILY 02/24/18 [History Last Taken 02/17/19] atorvastatin 20 mg PO QHS 02/24/18 [History Last Taken 02/17/19] duloxetine 60 mg PO DAILY 02/24/18 [History Last Taken 02/17/19] empagliflozin 10 mg PO DAILY 02/24/18 [History Last Taken 02/17/19] estradiol 1 mg PO DAILY 02/24/18 [History Last Taken 02/17/19] levothyroxine 50 mcg PO DAILY 02/24/18 [History Last Taken 02/17/19] lisinopril 20 mg PO DAILY 02/24/18 [History Last Taken 02/17/19] metformin 1,000 mg PO BIDCM 02/24/18 [History Last Taken 02/17/19] pioglitazone 45 mg PO DAILY 02/24/18 [History Last Taken 02/17/19] sitagliptin 100 mg PO DAILY 02/24/18 [History Last Taken 02/17/19] aspirin 81 mg PO DAILY 02/17/19 [History Last Taken 02/17/19] cholecalciferol (vitamin D3) 50 mcg (2,000 unit) capsule 2,000 unit PO DAILY 04/01/19 [History Last Taken Unknown] pantoprazole 40 mg tablet,delayed release 40 mg PO BID tab 04/01/19 [History Last Taken Unknown] nystatin 1 applic TOPICAL TID #1 bottle 04/04/19 [Rx Last Taken Unknown] naproxen 500 mg PO BID PRN #20 tab 06/20/19 [Rx Last Taken Unknown] insulin glargine 30 unit SQ DAILY #0 05/31/20 [Rx Last Taken 02/17/19] ondansetron 4 mg PO Q8H PRN PRN #10 tab 10/25/20 [Rx Last Taken Unknown] ibuprofen 200 mg capsule 200 mg PO Q6H PRN 10/29/20 [History Last Taken Unknown] ondansetron HCl [Zofran] 4 mg PO Q8H PRN #14 tab 08/28/21 [Rx Last Taken Unknown] Allergy/AdvReac Type Severity Reaction Status Date / Time Bleach (Sodium Hypochlorite) Allergy Severe HIVES Verified 08/28/21 15:05 amoxicillin Allergy Hives Verified 08/28/21 15:05 Penicillins Allergy Rash Verified 08/28/21 15:05 Sulfa (Sulfonamide AdvReac Nausea/Vom/ Verified 08/28/21 15:05 Antibiotics) Diarrhea Family History Other ANGINA Anxiety Arthritis Blood clotting disorder Bowel disease Breast cancer CVA (cerebral vascular accident) Cancer Colon cancer Depression Diabetes Heart disease Hyperlipidemia Hypertension Melanoma Mental disorder Myocardial infarction Osteoporosis Ovarian cancer Parkinsons disease Thyroid disorder Surgical History H/O: hysterectomy History of cataract surgery Social History Smoking Status: Never smoker substance use type: does not use what type of physical activity do you participate in: walking ROS ROS ED Constitutional Constitutional ED: Reports sweats; Denies fever(s) Eyes Eyes: Denies change in vision ENT ENT ED: Reports epistaxis, headache(s), nasal congestion and rhinorrhea; Denies ear pain Cardiovascular Cardiovascular: Denies chest pain Respiratory/Chest Respiratory/Chest: Reports cough and dyspnea Gastrointestinal Gastrointestinal: Reports nausea; Denies abdominal pain, diarrhea, melena or vomiting Genitourinary Genitourinary ED: Reports urinary frequency; Denies dysuria Musculoskeletal Musculoskeletal: Denies arthralgias or myalgias Integumentary Denies rash Neurologic Neurologic: Reports headache(s); Denies paresthesias or weakness Psychiatric Psychiatric: Denies anxiety or depression EXAM Physical Exam Const Vital Signs: 08/28/21 15:02 08/28/21 17:10 Temperature 97.7 F L Temperature Source Oral Pulse Rate 71 Respiratory Rate 21 H Blood Pressure 162/86 H 118/61 Blood Pressure Mean 111 80 Pulse Ox 97 99 Oxygen Delivery Method Room Air Room Air Positive well nourished and well developed General Appearance ED: well developed HEENT Reports TM's clear and moist mucous membranes HEENT Narrative: Dried blood in the right nares. No active bleeding. Normal oropharynx Tympanic Membrane ED: Yes TM's clear Eyes PERRL and EOMs intact bilaterally Neck supple and no meningeal signs General: normal visual inspection Resp normal respiratory effort Auscultation: diminished lung sounds Cardio regular rate, regular rhythm and no murmurs GI normal to inspection, nondistended, normoactive bowel sounds and non-tender Palpation: Negative for guarding or rebound tenderness present Back/Spine no CVA tenderness Extremity normal to inspection General Extremety ED: Negative for edema General Extremity: Negative for edema Neuro oriented x3 Sensorium / Orientation: alert Motor Exam: Negative for general weakness Psych mental status grossly normal Skin no rashes or lesions noted MDM MDM MDM Narrative Medical decision making narrative: Patient is evaluated for generalized malaise and GI upset. She was hypoglycemic and received oral glucose and then of food in the ER. She clinically improves with Zofran and food in the ER. Lab work is remarkable for glucose of 66. On recheck it is above 100. She is watched for some time in the emergency room and does not have any recurrent hypoglycemia. I suspect she has upper respiratory tract infection which cause her of decreased appetite today and she took her full dose of insulin this morning. This is why she developed hyperglycemia. Patient is counseled that she either needs to decrease her insulin or make sure she eats if she is taking her insulin. At this time I do not think she requires further inpatient observation. Patient is counseled on signs and symptoms requiring return to the emergency room. Patient verbalizes agreement and understand this plan. Patient discharged home in stable and improved condition. Lab Data Labs: Laboratory Results - last 24 hr 08/28/21 08/28/21 08/28/21 13:13 13:13 15:08 WBC 10.0 RBC 4.95 Hgb 13.7 Hct 43.8 MCV 88.5 MCH 27.7 MCHC 31.3 L RDW Std Deviation 48.0 H RDW Coeff of Lidia 14.9 H Plt Count 280 MPV 9.5 Immature Gran % (Auto) 0.400 Neut % (Auto) 67.2 Lymph % (Auto) 19.9 Johnson % (Auto) 9.3 Eos % (Auto) 2.9 Baso % (Auto) 0.3 Absolute Neuts (auto) 6.7 Absolute Lymphs (auto) 1.99 Nucleated RBC % 0 Sodium 140 Potassium 3.8 Chloride 110 H Carbon Dioxide 27.0 Anion Gap 3 L BUN 20 H Creatinine 0.98 Estim Creat Clear Calc 47.14 Est GFR (MDRD) Af Amer 76 Est GFR (MDRD) Non-Af 63 BUN/Creatinine Ratio 20.4 H Glucose 66 L Calcium 9.0 Total Bilirubin 0.50 AST 11 L ALT 22 Alkaline Phosphatase 63 Troponin I High Sens 4 Total Protein 7.6 Albumin 3.2 Globulin 4.4 H Albumin/Globulin Ratio 0.7 L Lipase 88 Urine Color Urine Clarity Urine pH Ur Specific [place] Urine Protein Urine Glucose (UA) Urine Ketones Urine Occult Blood Urine Nitrite Urine Bilirubin Urine Urobilinogen Ur Leukocyte Esterase Urine RBC Urine WBC Ur Squamous Epith Cells Urine Bacteria Urine Mucus POC Glucose 59 L 08/28/21 08/28/21 16:20 16:50 WBC RBC Hgb Hct MCV MCH MCHC RDW Std Deviation RDW Coeff of Lidia Plt Count MPV Immature Gran % (Auto) Neut % (Auto) Lymph % (Auto) Johnson % (Auto) Eos % (Auto) Baso % (Auto) Absolute Neuts (auto) Absolute Lymphs (auto) Nucleated RBC % Sodium Potassium Chloride Carbon Dioxide Anion Gap BUN Creatinine Estim Creat Clear Calc Est GFR (MDRD) Af Amer Est GFR (MDRD) Non-Af BUN/Creatinine Ratio Glucose Calcium Total Bilirubin AST ALT Alkaline Phosphatase Troponin I High Sens Total Protein Albumin Globulin Albumin/Globulin Ratio Lipase Urine Color Yellow Urine Clarity Sl. Cloudy Urine pH 5.0 Ur Specific [place] 1.025 Urine Protein 15 H Urine Glucose (UA) 1000 H Urine Ketones 5 H Urine Occult Blood Negative Urine Nitrite Negative Urine Bilirubin Negative Urine Urobilinogen Normal Ur Leukocyte Esterase 100 H Urine RBC 0 SEEN Urine WBC 0-5 SEEN Ur Squamous Epith Cells 0-5 SEEN Urine Bacteria RARE Urine Mucus 0 SEEN POC Glucose 111 H Radiography Chest X-Ray - ED: 1 View, Read by ED Physician, Read by Radiologist and No Acute Disease Diagnostic Testing: Clinical Impression(s) from Imaging Studies Chest X-Ray 08/28/21 16:23 IMPRESSION: Normal x-ray examination of the chest. Electronically Signed: Augustine Francis MD at 16:36 EDT , Service support , Rhythm Strip Rhythm Strip: Sinus Rhythm Rate: 72 Ectopy: None EKG Initial EKG: Interpretation: Sinus Rhythm Comments: Normal sinus rhythm rate of 72 Normal axis Normal intervals Normal ST segments Discharge Plan Triage Chief Complaint: Abd Pain ED Provider: Imani Cross Dx/Rx/DC Orders Clinical Impression: Hypoglycemia, URI (upper respiratory infection), Nausea Instructions: ED Hypoglycemia Oral Diabetic ..., ED URI, Viral, No Abx (Adult) Prescriptions: New ondansetron HCl [Zofran] 4 mg tablet 4 mg PO Q8H PRN (Reason: nausea and vomiting) Qty: 14 RF: 0 No Action pantoprazole 40 mg tablet,delayed release (DR/EC) 40 mg PO BID RF: 0 cholecalciferol (vitamin D3) 2,000 unit capsule 2,000 unit PO DAILY RF: 0 ibuprofen 200 mg capsule 200 mg PO Q6H PRN (Reason: Pain 1-10 Or Fever) RF: 0 atorvastatin 20 MG tablet 20 mg PO QHS RF: 0 atenolol 100 MG tablet 100 mg PO DAILY RF: 0 lisinopril 20 MG tablet 20 mg PO DAILY RF: 0 pioglitazone 45 MG tablet 45 mg PO DAILY RF: 0 estradiol 1 MG tablet 1 mg PO DAILY RF: 0 metformin 1,000 MG tablet 1,000 mg PO BIDCM RF: 0 levothyroxine 125 MCG tablet 50 mcg PO DAILY RF: 0 duloxetine 60 MG capsule 60 mg PO DAILY RF: 0 sitagliptin 100 MG tablet 100 mg PO DAILY RF: 0 empagliflozin 10 MG tablet 10 mg PO DAILY RF: 0 aspirin 81 MG tablet,chewable 81 mg PO DAILY RF: 0 nystatin 1 APPLIC bottle 1 applic TOPICAL TID Qty: 1 RF: 0 naproxen 500 MG tablet 500 mg PO BID PRN Qty: 20 RF: 0 insulin glargine 100 UNITS/ML insulin pen 30 unit SQ DAILY Qty: 0 RF: 0 ondansetron 4 MG tablet 4 mg PO Q8H PRN PRN (Reason: Nausea) Qty: 10 RF: 0 Primary Care Provider: Ranjeet Shine Referrals: Ranjeet Shine MD [Primary Care Provider] - Activity Restrictions/Additional Instructions: Make sure that you eat if you are taking your insulin to not have recurrent episodes of hypoglycemia (low blood sugar). Disposition Disposition: Home, Self Care Discharge Date/Time: 08/28/21 18:16
[2021-08-28 15:41] LABS: Absolute Lymphocyte Count 1.99 X10^3/uL (0.83-4.51); Absolute Neutrophil Count 6.7 X10^3/uL (2.0-7.7); Basophil# 0.03 X10^3/uL; Basophil% 0.3 % (0-1); Eosinophil# 0.29 X10^3/uL; Eosinophils% 2.9 % (0-5); Hematocrit 43.8 % (37-47); Hemoglobin 13.7 g/dL (12.0-15.0); Lymphocyte # 1.99 X10^3/ul (0.83-4.51); Lymphocyte % 19.9 % (19-41); Mean Corp Hgb Conc 31.3 g/dL (32-36); Mean Corpuscular Hgb 27.7 pg (27.0-32.0); Mean Corpuscular Volume 88.5 fL (81-99); Mean Platelet Vol. 9.5 fl (6.2-12.0); Monocyte# 0.93 X10^3/uL; Monocyte% 9.3 % (0-10); NRBC Flagged by Analyzer 0 % (0-5); Neutrophil # 6.72 X10^3/uL (2.7-7.7); Neutrophil % 67.2 % (47-70); Platelet Count 280 K/mm3 (150-450); RBC Distribution Width CV 14.9 % (11.6-14.6); Red Blood Count 4.95 M/mm3 (4.2-5.4)
[2021-08-28 16:03] LABS: ALB/GLOB Ratio 0.7 RATIO (0.9-2.4); AST(SGOT) 11 U/L (15-37); Alanine Aminotransfer ALT/SGPT 22 U/L (13-56); Albumin, Serum 3.2 g/dL (3.2-5.0); Alkaline Phosphatase 63 U/L (45-117); Anion Gap 3 (5-15); BUN 20 mg/dL (7-18); BUN/Creat Ratio 20.4 RATIO (10-20); Chloride 110 mmol/L (98-107); Creatinine, Serum 0.98 mg/dL (0.55-1.02); EST Glomerular Filtration Rate 63 mL/min (>60); Est Glom Filt Rate - Afr Amer 76 mL/min (>60); Estimated Creatinine Clearance 47.14 ml/min; Globulin 4.4 g/dL (2.2-4.2); Glucose 66 mg/dL (74-106); Lipase 88 U/L (73-393); Potassium 3.8 mmol/L (3.5-5.1); Protein, Total 7.6 g/dL (6.4-8.2); Sodium Level 140 mmol/L (136-145); Troponin-I HS 4 pg/mL (3.0-54.0)
--- NOTE | 2021-08-28 16:23 | RAD_ITS ---
STUDY: X-RAY CHEST REASON FOR EXAM: Female, 56 years old. weakness TECHNIQUE: AP portable COMPARISON: 07/10/2021 FINDINGS: The lungs are clear and expanded. There is no demonstrated pleural abnormality. Normal size heart. Normal mediastinum and skinny. Normal visualized pulmonary arteries. Normal visualized aortic arch and descending thoracic aorta. Normal visualized thoracic spine. Normal visualized ribs, clavicles, and shoulders. There is no demonstrated abnormality of the visualized soft tissue structures of the upper abdomen. No change since prior exam RAD/Chest 1 View (Portable) IMPRESSION: Normal x-ray examination of the chest. Electronically Signed: Augustine Francis MD at 16:36 EDT , Service support ,
[2021-08-28 16:33] LABS: Mucous, Urine 0 SEEN /hpf (<or=2+); Red Blood Cells-Urine 0 SEEN /hpf (0-5)
[2021-08-28 16:40] LABS: Color, Urine Yellow (Yellow); Glucose, Dipstick 1000 mg/dl (Normal); Ketone-Dipstick 5 mg/dl (Negative); Leukocyte Esterase-Dipstick 100 /ul (Negative); Nitrite-Dipstick Negative (Negative); Occult Blood-Urine Negative /ul (Negative); Protein-Dipstick 15 mg/dl (Negative); Specific Gravity, Urine 1.025 (1.002-1.030); Urine Bilirubin Dipstick Negative (Negative); Urine Clarity Sl. Cloudy (Clear); Urine Urobilinogen Normal (Normal)
[2021-08-28 16:50] LABS: Bacteria RARE /hpf (None Seen); Squamous Epithelial Cells - UA 0-5 SEEN /hpf (5-10); White Blood Cells 0-5 SEEN /hpf (0-5)
--- NOTE | 2021-08-28 16:52 | ED.RN ---
Blood glucose 111.
[2021-08-28 16:55] LABS: Bedside Glucose 111 mg/dL (70-110)
[2021-08-28 17:10] VITALS: BP 118/61; O2SAT 99
== END 2021-08-28 18:16 | disposition home or self-care (01) ==
PROVIDERS: Emergency Provider Emergency Medicine; PCP Family Medicine
DX: E11.649 Type 2 diabetes mellitus with hypoglycemia without coma (principal); J06.9 Acute upper respiratory infection, unspecified; Z20.822 Contact with and (suspected) exposure to COVID-19; E11.40 Type 2 diabetes mellitus with diabetic neuropathy, unspecified; I10 Essential (primary) hypertension; E78.1 Pure hyperglyceridemia; E78.5 Hyperlipidemia, unspecified; M19.90 Unspecified osteoarthritis, unspecified site; K21.9 Gastro-esophageal reflux disease without esophagitis; F32.A Depression, unspecified; F41.9 Anxiety disorder, unspecified; Z79.4 Long term (current) use of insulin; Z79.82 Long term (current) use of aspirin; Z79.899 Other long term (current) drug therapy
CPT/HCPCS: 71045; 80053; 81001; 82962; 83690; 84484; 85025; 87426; 93005; 99285; A4216

== ENCOUNTER 2023-01-07 15:59 | Emergency (ER) | payer MEDICARE, MEDICAID, SELFPAY ==
[2023-01-07 16:00] VITALS: BP 181/85; PULSE 65; RESP 16; TEMP 36.1; O2SAT 98
[2023-01-07 16:02] VITALS: BMI 39.0
--- NOTE | 2023-01-07 16:45 | EDS_ITS ---
HPI HPI - Fall History of Present Illness Chief Complaint: Fall Narrative Narrative: 57-year-old female presenting for evaluation of left knee pain and right shoulder pain. Apparently she was walking on uneven sidewalks and tripped and fell. She landed directly on her left knee and then to her right shoulder. She has pain in both. She states she was not able to ambulate prior to coming to the ER. She is having trouble lifting her right arm as well. Denies head injury, LOC. Denies neck pain. She does admit to having superficial abrasion over the left patella. Patient did not take anything for pain prior to arrival. [facility] Medical History Arthritis Back problem Cataracts, bilateral Diabetes GERD (gastroesophageal reflux disease) Hearing problem High triglycerides History of migraine headaches Hyperlipidemia Hypertension Neuropathy Seasonal allergies Vision problems Home Medications atenolol 100 mg tablet 100 mg PO DAILY blood pressure 02/24/18 [History Last Taken 02/17/19] atorvastatin 20 mg tablet 20 mg PO QHS cholesterol 02/24/18 [History Last Taken 02/17/19] duloxetine 60 mg capsule,delayed release 60 mg PO DAILY mental health 02/24/18 [History Last Taken 02/17/19] empagliflozin 10 mg tablet 10 mg PO DAILY diabetes 02/24/18 [History Last Taken 02/17/19] estradiol 1 mg tablet 1 mg PO DAILY supplement 02/24/18 [History Last Taken 02/17/19] levothyroxine 125 mcg tablet 50 mcg PO DAILY thyroid 02/24/18 [History Last Taken 02/17/19] lisinopril 20 mg tablet 20 mg PO DAILY blood pressure 02/24/18 [History Last Taken 02/17/19] metformin 1,000 mg tablet 1,000 mg PO BIDCM diabetic 02/24/18 [History Last Taken 02/17/19] pioglitazone 45 mg tablet 45 mg PO DAILY diabetes 02/24/18 [History Last Taken 02/17/19] sitagliptin phosphate 100 mg tablet 100 mg PO DAILY blood sugar 02/24/18 [History Last Taken 02/17/19] aspirin 81 mg chewable tablet 81 mg PO DAILY heart health 02/17/19 [History Last Taken 02/17/19] cholecalciferol (vitamin D3) 50 mcg (2,000 unit) capsule 2,000 unit PO DAILY vitamin 04/01/19 [History Last Taken Unknown] pantoprazole 40 mg tablet,delayed release 40 mg PO BID reflux 04/01/19 [History Last Taken Unknown] nystatin 100,000 unit/gram topical powder 1 applic topical TID ##1 04/04/19 [Rx Last Taken Unknown] naproxen 500 mg tablet 500 mg PO BID PRN #20 tabs 06/20/19 [Rx Last Taken Unknown] insulin glargine 100 unit/mL (3 mL) subcutaneous pen 30 unit (0.3 mL) SQ DAILY blood sugar ##0 05/31/20 [Rx Last Taken 02/17/19] ondansetron 4 mg disintegrating tablet 4 mg PO Q8H PRN PRN Nausea #10 tabs 10/25/20 [Rx Last Taken Unknown] ibuprofen 200 mg capsule 200 mg PO Q6H PRN Pain 1-10 Or Fever 10/29/20 [History Last Taken Unknown] ondansetron HCl 4 mg tablet (Zofran) 4 mg PO Q8H PRN nausea and vomiting #14 tabs 08/28/21 [Rx Last Taken Unknown] Allergy/AdvReac Type Severity Reaction Status Date / Time Bleach (Sodium Hypochlorite) Allergy Severe HIVES Verified 01/07/23 16:00 amoxicillin Allergy Hives Verified 01/07/23 16:00 Penicillins Allergy Rash Verified 01/07/23 16:00 Sulfa (Sulfonamide AdvReac Nausea/Vom/ Verified 01/07/23 16:00 Antibiotics) Diarrhea Family History Other ANGINA Anxiety Arthritis Blood clotting disorder Bowel disease Breast cancer CVA (cerebral vascular accident) Cancer Colon cancer Depression Diabetes Heart disease Hyperlipidemia Hypertension Melanoma Mental disorder Myocardial infarction Osteoporosis Ovarian cancer Parkinsons disease Thyroid disorder Surgical History H/O: hysterectomy History of cataract surgery Social History Smoking Status: Never smoker substance use type: does not use what type of physical activity do you participate in: walking ROS ROS ED Constitutional Constitutional ED: Denies chills or fever(s) Eyes Eyes: Denies change in vision or diplopia ENT ENT ED: Denies rhinorrhea or sore throat Cardiovascular Cardiovascular: Denies chest pain or palpitations Respiratory/Chest Respiratory/Chest: Denies cough or dyspnea Gastrointestinal Gastrointestinal: Denies abdominal pain or constipation Genitourinary Genitourinary ED: Denies dysuria or hematuria Musculoskeletal Musculoskeletal: Reports other Details: Left knee pain, right shoulder pain Integumentary Reports Abrasions Neurologic Neurologic: Denies headache(s) or paresthesias EXAM Physical Exam Const Vital Signs: 01/07/23 16:00 Temperature 97 F L Temperature Source Temporal Pulse Rate 65 Respiratory Rate 16 Blood Pressure 181/85 H Blood Pressure Mean 117 Pulse Ox 98 Oxygen Delivery Method Room Air Positive well nourished General Appearance ED: NAD HEENT Reports normocephalic trauma Eyes PERRL and EOMs intact bilaterally Neck full ROM Resp normal respiratory effort Cardio regular rate and regular rhythm Extremity Extremity Narrative: Left knee: Tenderness palpation over the patella. There is a superficial abrasion overlying the patella. Left knee extensor missing and is intact. No ligamentous laxity. No deformities. Patient is able to flex and extend the knee on examination. Right shoulder: Tenderness to palpation over the deltoid region of the right shoulder. Patient only able to abduct and flex this slightly on examination. No obvious deformity. Of note, patient was able to use the right arm to help pull up her pant leg to show me her knee. MDM MDM MDM Narrative Medical decision making narrative: Patient medicated with 100 mg p.o. X-rays of the right knee and left shoulder are obtained and on my interpretation shows no acute fracture or subluxation. Radiology interpreted these and agrees. Patient's left knee abrasion was cleaned and dressed. Patient ambulatory. She is stable for discharge at this time. Alternate Tylenol and ibuprofen at home. Return precautions discussed. Impression: 1. Mechanical fall 2. Left knee contusion 3. Right shoulder contusion Radiography Diagnostic Testing: Clinical Impression(s) from Imaging Studies Knee X-Ray 01/07/23 16:55 IMPRESSION: No acute osseous injury. Electronically Signed: Scott Lozano MD at 17:38 EDT , Shoulder X-Ray 01/07/23 16:55 IMPRESSION: No acute osseous injury. Electronically Signed: Scott Lozano MD at 17:39 EDT , Discharge Plan Triage Chief Complaint: Fall ED Provider: Carlos Vargas Dx/Rx/DC Orders Instructions: ED Contusion, Lower Extremity, ED Contusion, Upper Extremity, ED Fall Prevention Prescriptions: No Action pantoprazole 40 mg tablet,delayed release (DR/EC) 40 mg PO BID cholecalciferol (vitamin D3) 2,000 unit capsule 2,000 unit PO DAILY ibuprofen 200 mg capsule 200 mg PO Q6H PRN (Reason: Pain 1-10 Or Fever) atorvastatin 20 MG tablet 20 mg PO QHS atenolol 100 MG tablet 100 mg PO DAILY lisinopril 20 MG tablet 20 mg PO DAILY pioglitazone 45 MG tablet 45 mg PO DAILY estradiol 1 MG tablet 1 mg PO DAILY metformin 1,000 MG tablet 1,000 mg PO BIDCM levothyroxine 125 MCG tablet 50 mcg PO DAILY duloxetine 60 MG capsule 60 mg PO DAILY sitagliptin phosphate 100 MG tablet 100 mg PO DAILY empagliflozin 10 MG tablet 10 mg PO DAILY aspirin 81 MG tablet,chewable 81 mg PO DAILY nystatin 1 APPLIC bottle 1 applic TOPICAL TID Qty: 1 0RF naproxen 500 MG tablet 500 mg PO BID PRN Qty: 20 0RF insulin glargine 100 UNITS/ML insulin pen 30 unit SQ DAILY Qty: 0 0RF Rx Instructions: takenin the morning ondansetron 4 MG tablet 4 mg PO Q8H PRN PRN (Reason: Nausea) Qty: 10 0RF ondansetron HCl [Zofran] 4 mg tablet 4 mg PO Q8H PRN (Reason: nausea and vomiting) Qty: 14 0RF Primary Care Provider: Ranjeet Shine Referrals: Ranjeet Shine MD [Primary Care Provider] - Disposition Disposition: Home, Self Care
[2023-01-07] MEDS: Ibuprofen 600 MG Tablet PO (16:49)
--- NOTE | 2023-01-07 16:55 | RAD_ITS ---
INDICATION: Right shoulder pain. EXAMINATION/TECHNIQUE: X-RAY - RIGHT XR Shoulder Min 2 Views. 4 views. COMPARISON: None. FINDINGS: SOFT TISSUES: No soft tissue swelling or gas. No radiopaque foreign body. BONES/JOINTS: No acute fracture or subluxation. Normal alignment. Preservation of the joint spaces. No sclerotic or destructive changes observed. RAD/Shoulder min 2 Views IMPRESSION: No acute osseous injury. Electronically Signed: Scott Lozano MD at 17:39 EDT ,
--- NOTE | 2023-01-07 16:55 | RAD_ITS ---
INDICATION: Left knee pain. EXAMINATION/TECHNIQUE: X-RAY - LEFT XR Knee Complete 4 Views or More. 4 views. COMPARISON: None. FINDINGS: SOFT TISSUES: No soft tissue swelling or gas. No radiopaque foreign body. BONES/JOINTS: No acute fracture or subluxation. Normal alignment. Preservation of the joint space, small patellofemoral and lateral compartment marginal osteophyte formation. No sclerotic or destructive changes observed. RAD/Knee 4 or More Views IMPRESSION: No acute osseous injury. Electronically Signed: Scott Lozano MD at 17:38 EDT ,
[2023-01-07 17:59] VITALS: BP 131/69; PULSE 73; RESP 15; O2SAT 96
== END 2023-01-07 18:01 | disposition home or self-care (01) ==
PROVIDERS: Emergency Provider Student in an Organized Health Care Education/Training Program; PCP Family Medicine; Visit Provider Student in an Organized Health Care Education/Training Program
DX: S80.02XA Contusion of left knee, initial encounter (principal); E11.40 Type 2 diabetes mellitus with diabetic neuropathy, unspecified; E78.5 Hyperlipidemia, unspecified; S40.011A Contusion of right shoulder, initial encounter; I10 Essential (primary) hypertension; W01.0XXA Fall on same level from slipping, tripping and stumbling without subsequent striking against object, initial encounter
CPT/HCPCS: 73030; 73564; 99283

== ENCOUNTER 2024-04-12 10:00 | Outpatient (CLI) | payer MEDICARE, MEDICAID, SELFPAY ==
--- NOTE | 2024-04-12 12:55 | EKG12_ITS ---
Test Reason : PREOP Blood Pressure : / mmHG Vent. Rate : 069 BPM Atrial Rate : 069 BPM P-R Int : 168 ms QRS Dur : 078 ms QT Int : 392 ms P-R-T Axes : 075 053 080 degrees QTc Int : 420 ms Normal sinus rhythm Normal ECG Confirmed by LEONARD MARIA, SENG ([id number]), technical editor ALEXIS HAWK ([id number]) on 04/13/2024 9:44:28 AM Referred By: Hi Echeverria Confirmed By:SENG VALLE MD
[2024-04-12 13:32] LABS: Absolute Lymphocyte Count 2.63 X10^3/uL (0.83-4.51); Absolute Neutrophil Count 7.1 X10^3/uL (2.0-7.7); Basophil# 0.05 X10^3/uL; Basophil% 0.5 % (0-1); Eosinophil# 0.18 X10^3/uL; Eosinophils% 1.7 % (0-5); Hematocrit 43.4 % (37-47); Hemoglobin 13.6 g/dL (12.0-15.0); Lymphocyte # 2.63 X10^3/ul (0.83-4.51); Lymphocyte % 24.3 % (19-41); Mean Corp Hgb Conc 31.3 g/dL (32-36); Mean Corpuscular Hgb 27.5 pg (27.0-32.0); Mean Corpuscular Volume 87.9 fL (81-99); Mean Platelet Vol. 9.6 fl (6.2-12.0); Monocyte# 0.88 X10^3/uL; Monocyte% 8.1 % (0-10); NRBC Flagged by Analyzer 0 % (0-5); Neutrophil # 7.06 X10^3/uL (2.7-7.7); Platelet Count 325 K/mm3 (150-450); RBC Distribution Width CV 15.2 % (11.6-14.6); RBC Distribution Width SD 48.3 fl (35.1-43.9); Red Blood Count 4.94 M/mm3 (4.2-5.4); White Blood Count 10.8 K/mm3 (4.4-11.0)
[2024-04-12 14:05] LABS: Hemoglobin A1c 7.4 % (3.8-5.6)
[2024-04-12 14:21] LABS: Anion Gap 8 (5-15); BUN 39 mg/dL (7-18); Calcium,Total 9.4 mg/dL (8.5-10.1); Chloride 101 mmol/L (98-107); EST Glomerular Filtration Rate 45 mL/min (>60); Est Glom Filt Rate - Afr Amer 54 mL/min (>60); Glucose 279 mg/dL (74-106); Potassium 3.9 mmol/L (3.5-5.1); Sodium Level 135 mmol/L (136-145); Thyroid Stim Hormone (TSH) 1.03 uIU/mL (0.358-3.74)
== END 2024-04-21 23:59 | disposition home or self-care (01) ==
LOC: PAT 09-15 14:02
PROVIDERS: PCP Family Medicine; Referring Provider Student in an Organized Health Care Education/Training Program; Visit Provider Student in an Organized Health Care Education/Training Program
DX: Z01.818 Encounter for other preprocedural examination (principal); Z79.4 Long term (current) use of insulin; Z53.9 Procedure and treatment not carried out, unspecified reason; Z79.82 Long term (current) use of aspirin; Z79.84 Long term (current) use of oral hypoglycemic drugs; Z79.899 Other long term (current) drug therapy
CPT/HCPCS: 36415; 80048; 83036; 84443; 85025; 93005

== ENCOUNTER 2024-08-11 14:08 | Observation (INO) | payer MEDICARE, MEDICAID, SELFPAY ==
[2024-08-04 16:50] LABS: Absolute Lymphocyte Count 2.35 X10^3/uL (0.83-4.51); Absolute Neutrophil Count 4.5 X10^3/uL (2.0-7.7); Basophil# 0.05 X10^3/uL; Basophil% 0.6 % (0-1); Eosinophil# 0.12 X10^3/uL; Eosinophils% 1.6 % (0-5); Hematocrit 39.4 % (37-47); Hemoglobin 12.6 g/dL (12.0-15.0); Lymphocyte # 2.35 X10^3/ul (0.83-4.51); Lymphocyte % 30.4 % (19-41); Mean Corpuscular Volume 90.6 fL (81-99); Mean Platelet Vol. 10.5 fl (6.2-12.0); Monocyte# 0.73 X10^3/uL; Monocyte% 9.4 % (0-10); NRBC Flagged by Analyzer 0 % (0-5); Neutrophil # 4.46 X10^3/uL (2.7-7.7); Neutrophil % 57.6 % (47-70); Platelet Count 297 K/mm3 (150-450); RBC Distribution Width CV 13.2 % (11.6-14.6); RBC Distribution Width SD 43.8 fl (35.1-43.9); Red Blood Count 4.35 M/mm3 (4.2-5.4); White Blood Count 7.7 K/mm3 (4.4-11.0)
[2024-08-04 17:02] LABS: Anion Gap 8 (5-15); BUN 33 mg/dL (7-18); BUN/Creat Ratio 25.4 RATIO (10-20); Calcium,Total 8.5 mg/dL (8.5-10.1); Chloride 105 mmol/L (98-107); EST Glomerular Filtration Rate 45 mL/min (>60); Est Glom Filt Rate - Afr Amer 54 mL/min (>60); Glucose 205 mg/dL (74-106); Potassium 3.8 mmol/L (3.5-5.1); Sodium Level 139 mmol/L (136-145)
[2024-08-04 17:03] LABS: International Normalized Ratio 0.9; Partial Thromboplast Time 27.5 Seconds (24.1-36.2); Prothrombin Time (Protime)PT. 12.5 SECONDS (11.7-14.9)
[2024-08-04 17:11] LABS: Hemoglobin A1c 7.1 % (3.8-5.6)
[2024-08-04 17:24] LABS: AST(SGOT) 10 U/L (15-37); Alanine Aminotransfer ALT/SGPT 18 U/L (13-56); Albumin, Serum 3.5 g/dL (3.2-5.0); Alkaline Phosphatase 51 U/L (45-117); Bilirubin, Direct 0.09 mg/dL (0.00-0.30); Globulin 3.8 g/dL (2.2-4.2); Protein, Total 7.3 g/dL (6.4-8.2)
[2024-08-11] VITALS (14 sets, daily range): BP systolic 104–130; BP diastolic 41–79; PULSE 60–80; RESP 16–20; TEMP 36.1–36.8; O2SAT 95–100; BMI 33.3
[2024-08-11] MEDS: Lactated Ringers 1,000 ML 15 ML IV (11:50)
--- NOTE | 2024-08-11 12:07 | PCM.PRE.AN2 ---
ASA Classification* ASA Classification ASA Classification: 3 Assessment & Plan Anesthesia* Anesthesia Assessment Anesthesia Assessment: Discussed sedation and/or anesthesia options, risks, benefits, and alternatives with patient/parents/legal guardian/POA. Questions invited. The patient/parents/legal guardian/POA seems to understand and agrees to proceed with anesthesia plan. Reviewed the physical assessment, medical history, allergy history and patient home medications list prior to surgery/procedure/anesthetic and documented any changes. Performed airway and anesthesia risk assessments. Anesthesia Type Anesthesia Type: General (see written pre anesthesia record for full assessment) and Block (see written pre anesthesia record for full assessment) Anesthesia Focused Assessment* Temperature: 97.4 F Pulse Rate: 60 Blood Pressure: 118/67 Respiratory Rate: 18 Pulse Ox: 98 Airway Assessment Mouth opens: >3 cm Mallampati Score: II Focused Labs Anesthesia Preop lab: CBC WBC 7.7 K/mm3 (4.4-11.0) 08/04/24 16:20 RBC 4.35 M/mm3 (4.2-5.4) 08/04/24 16:20 Hgb 12.6 g/dL (12.0-15.0) 08/04/24 16:20 Hct 39.4 % (37-47) 08/04/24 16:20 Plt Count 297 K/mm3 (150-450) 08/04/24 16:20 CHEMISTRY Potassium 3.8 mmol/L (3.5-5.1) 08/04/24 16:20 Sodium 139 mmol/L (136-145) 08/04/24 16:20 Magnesium 1.8 mg/dL (1.6-2.6) 06/28/19 14:25 Phosphorus 3.8 mg/dL (2.5-4.9) 04/16/13 07:15 BUN 33 mg/dL (7-18) H 08/04/24 16:20 Creatinine 1.30 mg/dL (0.55-1.02) H 08/04/24 16:20 Glucose 205 mg/dL (74-106) H 08/04/24 16:20 POC Glucose 111 mg/dL (70-110) H 08/28/21 16:50 TSH 0.030 uIU/mL (0.358-3.740) L 08/04/24 16:20 COAG PT 12.5 SECONDS (11.7-14.9) 08/04/24 16:20 Pre-Assessment Diagnosis/Proposed Procedure Planned Operative Procedure(s): LEFT SHOULDER ARTHROSCOPY WITH SUBACROMIAL DECOMPRESSION DISTAL CLAVICLE EXCISION AND RTC REPAIR Anesthesia History 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 When Was Last Pacemaker Check QUESTION #4 FULL TEXT: You/Your Family Experience fever (hyperthermia) with Anesthesia Last Oral Intake Last Oral intake: Last Oral Intake NPO since 05:00 08/11/24 11:47 Meds taken in AM with sips of Yes 08/11/24 11:47 water? 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 Female Yes 08/03/24 09:48 HX of Motion Sickness No 08/03/24 09:48 HX of N/V After Surgery No 08/03/24 09:48 Non-Smoker Yes 08/03/24 09:48 Duration of Surgery greater Yes 08/03/24 09:48 than 60 minutes Number of Risk Factors 3 08/03/24 09:48 PONV Score Moderate Risk 08/03/24 09:48 Height & Weight Height & Weight: Anesthesia: Height & Weight Height 5 ft 1 in 08/11/24 11:47 Weight: 80 kg 08/11/24 11:47 Body Mass Index (BMI) 33.3 08/11/24 11:47 Respiratory Assessment Respiratory Assessment - 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 Has anyone observed you stop breathing during sleep? STOP Results Positive 08/03/24 09:48 QUESTION #5 FULL TEXT : Do you snore loudly (louder than talking or can be heard through closed doors)? 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 Specify any problems Hx of Preganancy in last 3 No 08/03/24 09:48 Months Nurse Filling Out Transfusion DSCHRIBER 08/03/24 09:48 & Questions: Date: 08/03/24 08/03/24 09:48 Time: 09:50 08/03/24 09:48 Patient unable to answer at this time (ie. confused, unrespo /Reproduction History /Reproductive History - media law faculty member: /Reproductive Hx- media law faculty member Hx Now No 08/03/24 09:48 Gestational Age (in weeks): EDC: Hx Hx Para Hx Section SAB No 08/03/24 09:48 Active Medications Active Medications: Current Medications Generic Name Dose Route Start Last Admin Trade Name Freq PRN Reason Stop Dose Admin Cefazolin Sodium 2 gm/ N/A 20 mls @ 400 mls/hr 08/11/24 13:10 IV 08/11/24 13:12 PREOP ONE Lactated Ringer's 1,000 mls @ 15 mls/hr 08/11/24 11:30 08/11/24 11:50 IV 08/14/24 06:09 15 mls/hr .Q48H CLIFFORD Administration Protocol [facility] Medical History Cognitive impairment Easy bruising Wears hearing aid Wears partial dentures Wears glasses Post-menopausal Depression Anxiety Thyroid disease Insulin dependent diabetes mellitus High cholesterol Dietary restriction Gastric reflux Non-smoker CPAP (continuous positive airway pressure) dependence Shortness of breath on exertion History of echocardiogram History of stress test Neuropathy High triglycerides Hypertension Diabetes Arthritis Home Medications ?Medication ?Instructions ?Recorded ?Last Taken ?Type atenolol 100 mg tablet 100 mg PO DAILY blood pressure 02/24/18 08/11/24 05:00 History atorvastatin 20 mg tablet 20 mg PO QHS cholesterol 02/24/18 08/10/24 History duloxetine 60 mg capsule,delayed 60 mg PO DAILY mental health 02/24/18 08/11/24 05:00 History release estradiol 1 mg tablet 1 mg PO DAILY supplement 02/24/18 08/10/24 History metformin 1,000 mg tablet 1,000 mg PO BIDCM diabetic 02/24/18 08/10/24 History sitagliptin phosphate 100 mg tablet 100 mg PO DAILY blood sugar 02/24/18 08/10/24 History aspirin 81 mg chewable tablet 81 mg PO DAILY heart health 02/17/19 08/05/24 History cholecalciferol (vitamin D3) 50 2,000 unit PO DAILY vitamin 04/01/19 08/10/24 History mcg (2,000 unit) capsule celecoxib 200 mg capsule 200 mg PO DAILY 04/11/24 08/05/24 History chlorthalidone 25 mg tablet 25 mg PO DAILY 04/11/24 08/10/24 History cyanocobalamin (vitamin B-12) 1,000 mcg PO DAILY 04/11/24 08/05/24 History 1,000 mcg tablet (Vitamin B-12) empagliflozin 25 mg tablet 25 mg PO DAILY 04/11/24 08/10/24 History (Jardiance) hydroxyzine HCl 25 mg tablet 25 mg PO Q6H PRN anxiety 04/11/24 08/10/24 History insulin glargine 100 unit/mL (3 32 unit SQ DAILY blood sugar 04/11/24 08/10/24 History mL) subcutaneous pen levothyroxine 50 mcg tablet 50 mcg PO DAILY 04/11/24 08/11/24 05:00 History lisinopril 40 mg tablet 40 mg PO DAILY 04/11/24 08/11/24 05:00 History multivitamin-ferrous 1 tab PO DAILY 04/11/24 08/05/24 History fumarate-folic acid 18 mg-400 mcg tablet ([facility]) omeprazole 20 mg capsule,delayed 40 mg PO DAILY 04/11/24 08/11/24 05:00 History release pioglitazone 15 mg tablet 30 mg PO DAILY 04/11/24 08/10/24 History sertraline 50 mg tablet (Zoloft) 50 mg PO DAILY 04/11/24 08/10/24 History Allergy/AdvReac Type Severity Reaction Status Date / Time Bleach (Sodium Hypochlorite) Allergy Severe HIVES Verified 08/11/24 11:43 amoxicillin Allergy Hives Verified 08/11/24 11:43 Penicillins Allergy Rash Verified 08/11/24 11:43 Sulfa (Sulfonamide AdvReac Nausea/Vom/ Verified 08/11/24 11:43 Antibiotics) Diarrhea Family History Other ANGINA Anxiety Arthritis Blood clotting disorder Bowel disease Breast cancer CVA (cerebral vascular accident) Cancer Colon cancer Depression Diabetes Heart disease Hyperlipidemia Hypertension Melanoma Mental disorder Myocardial infarction Osteoporosis Ovarian cancer Parkinsons disease Thyroid disorder Surgical History History of cataract surgery H/O: hysterectomy Social History Smoking Status: Never smoker substance use type: does not use what type of physical activity do you participate in: walking Review of Systems (Anesthesia) ROS Narrative System reviewed and no additional complaints, except as documented.
[2024-08-11] MEDS: Cefazolin 2 GM in Syringe IV (13:05)
[2024-08-11] MEDS: Epinephrine (1 mg/ml) 1 MG/ML VIAL (13:15)
--- NOTE | 2024-08-11 14:20 | OP.PCM_ITS ---
Report of Operation Date of Procedure: 08/11/24 Description of Surgical Findings:: Preoperative diagnosis: 1. Right shoulder rotator cuff tear 2. Right shoulder subacromial impingement syndrome 3. Right biceps tendinosis with partial tearing 4. Symptomatic right acromioclavicular joint osteoarthritis Postoperative diagnosis: 1. Right shoulder rotator cuff tear 2. Right shoulder subacromial impingement syndrome 3. Right biceps tendinosis with partial tearing 4. Symptomatic right acromioclavicular joint osteoarthritis 5. Right shoulder synovitis 6. Right shoulder degenerative labral tearing Procedure 1. Right shoulder arthroscopic rotator cuff repair 2. Right shoulder arthroscopic subacromial decompression 3. Right shoulder biceps tenotomy with debridement of the capsule, biceps labral junction, labrum 4. Right shoulder arthroscopic distal clavicle excision Surgeon: Hi Echeverria DO Commercial Lawn Specialist: Natalie Benitez PA-C Anesthesia: General LMA with interscalene block Motion Study Engineer: Pavan Chambers CRNA Estimated blood loss: 5 cc IV fluids: 1 L crystalloid Urine output: None recorded Packing/drains: None Implants: Arthrex fiber tack RC x 2, Arthrex 4.75 mm bio composite swivel lock anchor x 2 Preoperative indications: This is a 59-year-old MRDD female seen in the outpatient setting with acute onset left shoulder pain after a fall onto her left shoulder in the spring 2023. She had profound weakness in her supraspinatus. MRI demonstrated a full-thickness retracted tear of the supraspinatus and infraspinatus. I recommend surgical intervention in the form of right shoulder arthroscopic rotator cuff repair, subacromial decompression. Patient also had evidence of partial biceps tear and biceps tenotomy was recommended. She also had symptomatic AC joint arthritis which I recommended arthroscopic distal clavicle excision. Informed consent was obtained in the outpatient setting. Surgery was previously scheduled with delayed due to multiple wounds on bilateral upper extremities as patient has a tendency to scratch and pick her skin. Skin eventually healed uneventfully without evidence of infection. Risks, benefits, terms the procedure reviewed with the patient at length and he agreed to proceed. Risk included but were not limited to bleeding, infection, loss of life or limb, need for additional surgery, persistent pain, nonhealing tendon or wounds, stiffness, neurovascular injury, DVT or PE. Patient expressed understanding of these risks and wished to proceed with surgery. I discussed preoperatively with the patient's quality compliance consultant about possible [place] [facility] facility placement postoperatively as the patient lives alone and is limited in her mental capacity. We agreed to place the patient in observation at the very least postoperatively for early rehab. Plan is to work on possible placement depending on her postoperative needs. Description of procedure: Patient was identified in preoperative holding area by name, medical record number, and date of . The operative extremity was marked. All questions were answered to the patient's satisfaction. An interscalene block was administered by anesthesia prior to the procedure. Patient was then brought to the operative suite at time of her procedure she he was positioned supine a sterile operating table. General anesthesia was induced and LMA was placed. Patient was then placed in lateral decubitus position with the left side up. A beanbag was used to hold the patient in the lateral decubitus position. An axillary roll was placed. Pillows were placed beneath and between her legs to for any bony prominences. We prepped and draped the left upper extremity in normal, sterile orthopedic fashion. The operative extremity was placed in traction utilizing arthroscopic bedroom with 10 pounds of tension applied to the operative extremity throughout the arthroscopic portio n of the case. We performed a timeout with all parties in attendance in agreement with the side, site, and operation be performed. No concerns were voiced and we elected to proceed with surgery. 2 g Ancef was administered IV prior to incision by anesthesia staff. I first established a standard posterior portal 2 fingerbreadths inferior medial to the posterior lateral border of the scapular spine. Blunt tipped trocar and arthroscopic cannula was introduced into the glenohumeral joint. Joint was inflated with normal saline with epinephrine. Arthroscope was then introduced. Diagnostic arthroscopy was commenced. Full-thickness tearing supraspinatus with a bare footprint. Biceps tendon was 50% torn Standard interval portal was then established with an 11 blade scalpel. Subscapularis was partially torn at the upper third border. Glenohumeral cartilage was pristine. Biceps tenotomy was performed at the biceps labral junction with the arthroscopic cautery. The tendon was allowed to retract into the groove. Degenerative labral fraying was noted as well as a chronic appearing SLAP tear which was debrided to a stable rim of labral tissue with a radial resector. The articular side of the supraspinatus was then debrided with the radial resector. No loose bodies were identified. I then turned my attention to the subacromial space. Arthroscopic instruments were removed. I reentered the shoulder in the subacromial space with blunt tipped trocar. Standard lateral portal was established with an 11 blade scalpel. Passport was placed for suture management during rotator cuff repair. I then skeletonized the undersurface of the acromion. A prominent downsloping spur from the anterior lateral surface of the acromion was identified. Acromioplasty was performed with the arthroscopic bur removing the spur. I then exposed the supraspinatus footprint with the cautery device. The footprint was lightly decorticated with a bur. Old suture was identified and retrieved with a suture grasper. Bursal side of the tendon tissue was debrided with a radial resector. I then proceeded with double row fixation. Via percutaneous Nevasier portal, 2 fiber tack RC anchors were placed. Sutures were retrieved out the anterior portal. I then sequentially passed each limb of suture from the anchors, which were each double loaded. A total of 4 suture strands were placed through the supraspinatus tendon tissue near the musculotendinous junction. A single limb of each suture was then retrieved at the lateral portal and passed through the eyelet of a swivel lock anchor. Lateral row balloon pilot holes were established with the vendor supplied punch. I then completed our lateral row with fixation with tensioning of the sutures and placed in the swivel lock anchor with excellent cortical purchase. Excellent compression and reapproximation of the supraspinatus to his [place] footprint was achieved. Infraspinatus was then compressed to bone with a repair suture from the po sterior lateral anchor via the knotless mechanism. There was excellent reapproximation of [place] tendon tissue to footprint. I then turned my attention to the AC joint. The anterior and inferior capsule was released with arthroscopic cautery. Distal clavicle excision was performed in standard fashion with the arthroscopic bur maintaining the superior and posterior aspects of the joint capsule. Approximately 8 mm of distal clavicle was resected. I then thoroughly lavaged the subacromial space. Arthroscopic instruments were removed. Portal sites were closed in standard fashion with a [id number] 3- 0 nylon suture. Bulky sterile compression dressing was applied. Patient was placed in UltraSling. She tolerated the procedure well without apparent complication. She was safely awakened in the operative suite and extubated. She was transferred to his gurney and subsequently to PACU in stable condition. Need for skilled assistant farm operations manager: Natalie Benitez PA-C was critical to the outcome of the case. During the course of the procedure the physician assistant farm operations manager played a vital role. Her intimate knowledge of my steps in the procedure aided in safe and expedient completion of the procedure. The PA played a vital role in positioning particularly in obtaining the appropriate positioning. The PA was also vital in the retraction of soft tissues during the exposure and protecting vital structures. The PA was also vital and obtaining tendon reduction and assisting with hardware placement. She also played a vital role in closure and sling application with my direct supervision. Post Operative Plan: Patient will be placed in observation overnight. PT/OT ordered and evaluate need for possible [place] [facility] facility placement due to the patient's MRDD and the fact she lives alone independently. With the patient's multiple comorbidities, I did request the assistance of the hospitalist for medical management while the patient is in the hospital. Weightbearing: Nonweightbearing left upper extremity, okay for pendulums. Range of motion of wrist elbow and hand as tolerated. Antibiotics: 2 g Ancef IV prior to incision, 24 hours IV Ancef DVT Prophylaxis: Aspirin enteric-coated 81 mg twice daily starting tomorrow Floyd: None Dressing: Maintain dressing x 2 days then ok to shower X-Rays: 2 weeks postop in the office Pain Medication: Oxycodone Rx upon discharge Follow-up: 2 weeks post-operatively in the office Procedure Start Time: 13:15 Procedure Stop Time: 14:18
--- NOTE | 2024-08-11 14:35 | PCM.POST.ANE ---
Anesthesia: Postop Eval I Current Vital Signs Temperature: 97 F Pulse Rate: 80 Blood Pressure: 118/77 Respiratory Rate: 16 Pulse Ox: 99 Assessment Airway patent: Yes Spontaneous unlabored respirations: Yes nausea: No Vomiting: No Anesthesia Complication: Yes Anesthesia Complication Comment:: none Fluid Hydration Crystalloid volume administer (ml): 1,000 Total IV fluid infused: 1,000 Progress Note Post-operative progress note: . Anesthesia document: Postop Eval 1 completed: Yes
[2024-08-11] MEDS: Ipratropium/Albuterol Sulfate 3 ML AMPUL.NEB INHALATION (15:12)
[2024-08-11 17:02] LABS: Bedside Glucose 203 mg/dL (74-106)
--- NOTE | 2024-08-11 19:19 | CON.PCM.HO_ITS ---
Assessment & Plan Assessment/Plan (1) Impingement of left shoulder: PLAN: Plan 1. Chronic left shoulder impingement syndrome: Patient chronic left shoulder rotator cuff tear with subacromial impingement syndrome, left biceps tendinosis with partial tearing with left AC joint arthritis. Left shoulder labral tearing. She had elective surgery of left shoulder arthroscopic rotator cuff repair with subacromial decompression. Left shoulder biceps tenotomy with debridement of the Single, labral junction and distal clavicle excision. PT and OT. Bowel and bladder care. DVT prophylaxis as per DVT prophylaxis. Surgeon informed about operative note which wrongly describes the surgery on the right shoulder 2. DM type II: Last A1c 7.1% in July 2024. Glucose 205. Accu-Chek before meals and at bedtime with Humalog sliding scale coverage and hypoglycemia protocol. 3. Hypertension and dyslipidemia: Home medication reconciliation done. Blood pressure in normal range. Hold antihypertensive medications for SBP less than 130 mmHg 4. Hypothyroidism: TSH is 0.03 very low on 08/14/2024. Free T4 ordered for tomorrow AM. 5. 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 safety and occupational health manager consulted. HPI Consult Data Date of Consult: 08/11/24 HPI Narrative Reason for Consultation: Perioperative management after elective left shoulder surgery HPI Narrative: ARCENIO LAND, is a 59 F is admitted after elective left shoulder surgery. Patient has chronic left shoulder rotator cuff tear with subacromial impingement syndrome, left biceps tendinosis with partial tearing with left AC joint arthritis. Left shoulder labral tearing. It is wrongly mentioned has right shoulder in the operative note therefore I called Dr. Hi ron and informed to change the laterality of the surgical operative note Patient was seen and examined in the PACU No acute complaint of chest pain shortness of breath. Patient voided urine twice. Patient is accompanied by licensed clinical social worker as she has mild MRDD/cognitive or motor delay. She had bowel movement today. But patient lives independently. [facility] Medical History Cognitive impairment Easy bruising Wears hearing aid Wears partial dentures Wears glasses Post-menopausal Depression Anxiety Thyroid disease Insulin dependent diabetes mellitus High cholesterol Dietary restriction Gastric reflux Non-smoker CPAP (continuous positive airway pressure) dependence Shortness of breath on exertion History of echocardiogram History of stress test Neuropathy High triglycerides Hypertension Diabetes Arthritis Home Medications ?Medication ?Instructions ?Recorded ?Last Taken ?Type atenolol 100 mg tablet 100 mg PO DAILY blood pressure 02/24/18 08/11/24 05:00 History atorvastatin 20 mg tablet 20 mg PO QHS cholesterol 02/24/18 08/10/24 History duloxetine 60 mg capsule,delayed 60 mg PO DAILY mental health 02/24/18 08/11/24 05:00 History release estradiol 1 mg tablet 1 mg PO DAILY supplement 02/24/18 08/10/24 History metformin 1,000 mg tablet 1,000 mg PO BIDCM diabetic 02/24/18 08/10/24 History sitagliptin phosphate 100 mg tablet 100 mg PO DAILY blood sugar 02/24/18 08/10/24 History aspirin 81 mg chewable tablet 81 mg PO DAILY heart health 02/17/19 08/05/24 History cholecalciferol (vitamin D3) 50 2,000 unit PO DAILY vitamin 04/01/19 08/10/24 History mcg (2,000 unit) capsule celecoxib 200 mg capsule 200 mg PO DAILY 04/11/24 08/05/24 History chlorthalidone 25 mg tablet 25 mg PO DAILY 04/11/24 08/10/24 History cyanocobalamin (vitamin B-12) 1,000 mcg PO DAILY 04/11/24 08/05/24 History 1,000 mcg tablet (Vitamin B-12) empagliflozin 25 mg tablet 25 mg PO DAILY 04/11/24 08/10/24 History (Jardiance) hydroxyzine HCl 25 mg tablet 25 mg PO Q6H PRN anxiety 04/11/24 08/10/24 History insulin glargine 100 unit/mL (3 32 unit SQ DAILY blood sugar 04/11/24 08/10/24 History mL) subcutaneous pen levothyroxine 50 mcg tablet 50 mcg PO DAILY 04/11/24 08/11/24 05:00 History lisinopril 40 mg tablet 40 mg PO DAILY 04/11/24 08/11/24 05:00 History multivitamin-ferrous 1 tab PO DAILY 04/11/24 08/05/24 History fumarate-folic acid 18 mg-400 mcg tablet ([facility]) omeprazole 20 mg capsule,delayed 40 mg PO DAILY 04/11/24 08/11/24 05:00 History release pioglitazone 15 mg tablet 30 mg PO DAILY 04/11/24 08/10/24 History sertraline 50 mg tablet (Zoloft) 50 mg PO DAILY 04/11/24 08/10/24 History Allergy/AdvReac Type Severity Reaction Status Date / Time Bleach (Sodium Hypochlorite) Allergy Severe HIVES Verified 08/11/24 11:43 amoxicillin Allergy Hives Verified 08/11/24 11:43 Penicillins Allergy Rash Verified 08/11/24 11:43 Sulfa (Sulfonamide AdvReac Nausea/Vom/ Verified 08/11/24 11:43 Antibiotics) Diarrhea Family History Other ANGINA Anxiety Arthritis Blood clotting disorder Bowel disease Breast cancer CVA (cerebral vascular accident) Cancer Colon cancer Depression Diabetes Heart disease Hyperlipidemia Hypertension Melanoma Mental disorder Myocardial infarction Osteoporosis Ovarian cancer Parkinsons disease Thyroid disorder Surgical History History of cataract surgery H/O: hysterectomy Social History Smoking Status: Never smoker substance use type: does not use what type of physical activity do you participate in: walking ROS ROS Narrative Constitutional: Chronic mild MRDD but lives independently. No fever. HEENT: Reports systems reviewed and no addt'l complaints, except as documented Respiratory/Chest: obstructive sleep apnea on CPAP no acute shortness of breath or respiratory distress or wheezing. CVS: No chest pain shortness of breath. No CAD. Gastrointestinal: Denies coffee ground emesis, hematemesis or vomiting Genitourinary: Denies burning urination or new urinary tract symptoms Musculoskeletal: Chronic left shoulder impingement syndrome as described in HPI Neurologic: Denies seizure-like symptoms. skin: No ulcer. No rash Endocrinology: Chronic hypothyroidism. DM type II. Reports systems reviewed and no addt'l complaints, except as documented Hematologic/Lymphatic: Reports systems reviewed and no addt'l complaints, except as documented Rest 14 ROS are negative except as mentioned in HPI Physical Exam Narrative General: Alert, Oriented x3, Cooperative HEENT: Atraumatic, PERRLA, EOMI, Normocephalic Oral: Oral mucosa moist. No Gingival or Mucosal Lesions/ Ulcerations Neck: Supple, No JVD, Negative Carotid Bruits Chest wall/Lungs: Air entry diminished in bilateral lung bases. No crepitation/rhonchi Cardiovascular: Regular rate, Regular Rhythm, Normal S1, Normal S2, No M/G/R Abdomen: Bowel Sounds Present, Soft, Non Tender, Non-Distended : No dysuria. No renal angle tenderness. No suprapubic tenderness. Extremities: Left shoulder in sling and swath with operative dressing. Operative dressing is dry. No edema, Capillary Refill Less than 3 Seconds Skin: No rashes, No breakdown Musculoskeletal: No Tenderness to Palpation of Joints or Extremities. ROM intact Neurological: Cranial nerves II-XII grossly intact, DTR 2+/4. No acute focal neurological deficit. Psych/Mental Status: Flat affect Lab / Micro Data 08/04/24 16:20 08/04/24 16:20 Labs: Laboratory Results - last 24 hr 08/11/24 16:42: POC Glucose 203 H Charges/Coding Visit Charges Office Visits / Consults: 82694 OV L4 Est 30min
[2024-08-11 20:48] LABS: Bedside Glucose 351 mg/dL (74-106)
[2024-08-11] MEDS: Acetaminophen 500 MG Tablet 1000 MG PO (21:35)
[2024-08-11] MEDS: Cefazolin 1 GM/50 ML BAG IV (21:35)
[2024-08-11] MEDS: Atorvastatin Calcium 20 MG Tablet PO (21:35)
[2024-08-11] MEDS: Insulin Glargine-YFGN 100 UNIT/ML Pen 32 UNIT SC (21:47)
[2024-08-11] MEDS: Insulin Lispro 100 UNIT/ML INSULN.PEN SC (21:48)
[2024-08-12 01:05] VITALS: BP 119/54; PULSE 69; RESP 17; TEMP 36.6; O2SAT 99
[2024-08-12] MEDS: Nystatin Powder 15gm Bottle 1 APPLIC TOPICAL ×3 (01:12→20:38)
[2024-08-12] MEDS: Menthol/Lanolin/Calamine/Znox 113 GM Tube 1 APPLIC TOPICAL ×3 (01:13→20:37)
[2024-08-12] MEDS: oxyCODONE 5 MG Tablet PO ×2 (03:52→18:42)
[2024-08-12] MEDS: 0.9% Saline Lock 10 ML Syringe IV ×2 (03:53→06:04)
[2024-08-12 03:59] VITALS: BP 139/72; PULSE 63; RESP 17; TEMP 36.5; O2SAT 100
[2024-08-12] MEDS: Cefazolin 1 GM/50 ML BAG IV (06:02)
[2024-08-12] MEDS: Acetaminophen 500 MG Tablet 1000 MG PO ×3 (06:03→20:37)
[2024-08-12] MEDS: Levothyroxine 50 MCG Tablet PO (06:13)
[2024-08-12 06:47] LABS: Absolute Lymphocyte Count 1.39 X10^3/uL (0.83-4.51); Absolute Neutrophil Count 9.3 X10^3/uL (2.0-7.7); Basophil# 0.01 X10^3/uL; Basophil% 0.1 % (0-1); Hematocrit 36.3 % (37-47); Hemoglobin 11.9 g/dL (12.0-15.0); Lymphocyte # 1.39 X10^3/ul (0.83-4.51); Lymphocyte % 11.7 % (19-41); Mean Corp Hgb Conc 32.8 g/dL (32-36); Mean Corpuscular Hgb 29.5 pg (27.0-32.0); Mean Corpuscular Volume 89.9 fL (81-99); Monocyte# 1.12 X10^3/uL; Monocyte% 9.4 % (0-10); NRBC Flagged by Analyzer 0 % (0-5); Neutrophil # 9.29 X10^3/uL (2.7-7.7); Neutrophil % 78.4 % (47-70); Platelet Count 290 K/mm3 (150-450); RBC Distribution Width CV 13.2 % (11.6-14.6); RBC Distribution Width SD 43.2 fl (35.1-43.9); Red Blood Count 4.04 M/mm3 (4.2-5.4); White Blood Count 11.9 K/mm3 (4.4-11.0)
[2024-08-12 07:06] LABS: Bedside Glucose 146 mg/dL (74-106)
[2024-08-12 07:30] LABS: Anion Gap 5 (5-15); BUN 18 mg/dL (7-18); BUN/Creat Ratio 19.9 RATIO (10-20); Calcium,Total 8.6 mg/dL (8.5-10.1); Chloride 107 mmol/L (98-107); EST Glomerular Filtration Rate 68 mL/min (>60); Est Glom Filt Rate - Afr Amer 82 mL/min (>60); Estimated Creatinine Clearance 66.06 ml/min; Glucose 136 mg/dL (74-106); Potassium 4.3 mmol/L (3.5-5.1); Sodium Level 138 mmol/L (136-145); T4 Free Direct 1.21 ng/dL (0.76-1.46); Thyroid Stim Hormone (TSH) 0.032 uIU/mL (0.358-3.740)
[2024-08-12 07:54] VITALS: BP 141/63; PULSE 66; RESP 16; TEMP 36.7; O2SAT 100
[2024-08-12] MEDS: Celecoxib 200 MG Capsule PO (09:34)
[2024-08-12] MEDS: DULoxetine Hcl 60 MG Capsule PO (09:34)
[2024-08-12] MEDS: Aspirin 81 MG TAB.CHEW PO (09:34)
[2024-08-12] MEDS: Estradiol 1 MG Tablet PO (09:35)
[2024-08-12] MEDS: Chlorthalidone 50 MG Tablet 25 MG PO (09:35)
[2024-08-12] MEDS: Insulin Glargine-YFGN 100 UNIT/ML Pen 32 UNIT SC (09:36)
[2024-08-12] MEDS: Atenolol 100 MG Tablet PO (09:37)
[2024-08-12] MEDS: Cholecalciferol (VIT D3) 25 MCG TABLET (1,000 UNITS) 50 MCG PO (09:37)
[2024-08-12] MEDS: Pantoprazole Sodium 40 MG Tablet PO (09:37)
--- NOTE | 2024-08-12 09:37 | CASEMGMT ---
ALEJO CAMPOS Assessment: Face to Face with pt for initial transition planning/care coordination assessment. ALEJO CAMPOS introduced self and role at [facility], pt voices understanding and consents to assessment. Pt is A&O x4 and answers all questions appropriately at this time. Pt sitting up in chair with cg from [facility] at bedside. Care providers, pharmacy, and demographics verified/updated. Admitting Dx: L shoulder arthroscopy Strata Score: 1 PCP:Rl Specialists:taina Echeverria Preferred Pharmacy: [facility] Insurance: [facility] Dual, [facility] Prescription Benefit: yes LNOK: Kayleigh and Ranjeet Mcelroy, friends; Carter James, cg through [facility] Arrangements: Pt lives alone in a ground level apt with no steps to enter. Pt reports she is I in ADLs. Pt states she microwaves meals and has someone assist her from [employer]. Pt also goes to [facility] 5 days per week. Transportation: Pt does not drive. Pt machine adjuster leader case trim transports her to medical appts. DME:cane, CPAP, insulin with sufficient supply of needles and insulin; BGM with sufficient supply of strips and lancets HHC/SNF: Denies hx of Pt states she will need assistance at home. Pt machine adjuster leader case trim states that pt will need to go to a facility as she will not be able to manage at home post op. Therapy has [facility] pt but note is not in yet to be reviewed. Pt is agreeable to going to SNF s/t. Pt machine adjuster leader case trim gave her card. Passed this on to KAYLYNN. Updated MS3 SW and ALEJO CAMPOS on pt status. Pt states no further concerns/needs. CM to follow. Advised pt to ask CM if any further question/concerns/needs arise, voices understanding. Pt Goal: SNF Plan: Likely SNF pending therapy niki Georeg RN, CM
[2024-08-12] MEDS: Lisinopril 40 MG Tablet PO (09:38)
[2024-08-12] MEDS: Cyanocobalamin 500 MCG Tablet 1000 MCG PO (09:38)
--- NOTE | 2024-08-12 10:38 | CASEMGMT ---
Discharge Planning A list of?SNF providers including quality and resource use data and consistent with the patient's preferred geographic region, medical needs, and insurance network was created in [facility]Port Guide.? This list was provided to the SW. Kaela Betancur Discharge Planning Asst.
--- NOTE | 2024-08-12 11:04 | CASEMGMT ---
Social Work SW received referral for SNF placement. SW met with pt and Carter James, pts supportive living decontamination technician through [facility]. SW inquired if pt has advance directives and pt denies stating she is her own guardian and Carter concurs to this. Pt lives alone and independently. Due to shoulder surgery and NWB LUE for 6 weeks, pt is unable to return home alone at this time and is requesting short term SNF placement until she regains function and ability to care for herself. A list of SNF providers including quality and resource use data and consistent with the patient?s preferred geographic region, medical needs, and insurance network were provided from the [facility]Port Guide. [facility] KAYLYNN did explain that the [place] Board of DD will need to assess pt for SNF placement before she can be discharged and that this can take several days. Pt and Carter are understanding of this. DC activity assistant updated and to send referral to [facility]. PASRR to be completed for Department of DD assessment. Plan: [facility], pending acceptance and DD assessment LEEANN Lovell
--- NOTE | 2024-08-12 11:38 | CASEMGMT ---
Social Work PASRR completed for patient which did trigger a Level 2 assessment for [facility]. Supportive documentation was also uploaded which included therapy notes, operative note, hospitalist note and medication list. Pt to remain at [facility] until Level 2 assessment is completed. SARAI BrooksW, FRUIT AND VEGETABLE PARER
--- NOTE | 2024-08-12 11:39 | CASEMGMT ---
Addendum entered by Kaela Betancur 08/12/24 12:10: [facility] has accepted. Kaela Betancur DC Planning Asst. Original Note: Discharge Planning Referral sent to [facility] via [facility]Port. Kaela Betancur DC Planning Asst.
[2024-08-12 11:55] LABS: Bedside Glucose 218 mg/dL (74-106)
--- NOTE | 2024-08-12 11:58 | PN.ORTHO_ITS ---
Subjective Subjective Patient is a 59-year-old female status post left shoulder arthroscopy with rotator cuff repair, subacromial decompression biceps tenotomy, debridement of capsule and labrum and distal clavicle excision on 08/11/[address] Echeverria. Patient resting comfortably in bed. Rates pain 2/ 10 at rest. With movement 4/10. States taking tylenol and oxycodone and ice help to relieve pain. ok to continue therapy to encourage mobility. patient to continue sling use at all times nonweightbearing to right upper extremity. Afebrile, no chest pain, shortness of breath, negative calf pain/ erythema, and no other signs of DVT. Objective Data Objective Data Vital Signs: Vital Signs Temp Pulse Resp BP Pulse Ox O2 Del Method O2 Flow Rate 98.0 F 66 16 141/63 H 100 Room Air 2 08/12/24 07:54 08/12/24 07:54 08/12/24 07:54 08/12/24 07:54 08/12/24 07:54 08/12/24 07:54 08/11/24 15:15 Oxygen Flow Rate (L/min) 2 Oxygen Delivery Method Room Air Weight: 80 kg Body Mass Index (BMI) 33.3 Intake & Output: Intake and Output for Last 24 Hours 08/10/24 08/11/24 08/12/24 23:59 23:59 23:59 Intake Total 702.75 / 702.75 450 / 450 Balance 702.75 / 702.75 450 / 450 Lab / Micro Data 08/12/24 06:26 08/12/24 06:26 Labs: Laboratory Results - last 24 hr 08/11/24 16:42: POC Glucose 203 H 08/11/24 20:30: POC Glucose 351 H 08/12/24 06:26: WBC 11.9 H, RBC 4.04 L, Hgb 11.9 L, Hct 36.3 L, MCV 89.9, MCH 29.5, MCHC 32.8, RDW Std Deviation 43.2, RDW Coeff of Lidia 13.2, Plt Count 290, MPV 10.0, Immature Gran % (Auto) 0.400, Neut % (Auto) 78.4 H, Lymph % (Auto) 11.7 L, Roberts % (Auto) 9.4, Eos % (Auto) 0.0, Baso % (Auto) 0.1, Absolute Neuts (auto) 9.3 H, Absolute Lymphs (auto) 1.39, Nucleated RBC % 0, Sodium 138, Potassium 4.3, Chloride 107, Carbon Dioxide 26.0, Anion Gap 5, BUN 18, Creatinine 0.90, Estim Creat Clear Calc 66.06, Est GFR (MDRD) Af Amer 82, Est GFR (MDRD) Non-Af 68, BUN/Creatinine Ratio 19.9, Glucose 136 H, Calcium 8.6, TSH 0.032 L, Free T4 1.21 08/12/24 06:32: POC Glucose 146 H 08/12/24 11:34: POC Glucose 218 H Physical Exam Narrative patient afebrile satting well on RA sling in place Intact radial pulses Sensation intact to left upper extremity Intact to radial, median, ulnar nerve distribution Postop dressings without saturation. Clear dry intact Assessment & Plan Assessment/Plan (1) Rotator cuff tear: (2) S/P rotator cuff repair: PLAN: Plan Status post left shoulder arthroscopy, rotator cuff repair, subacromial decompression, distal clavicle excision, debridement of labrum and capsule and biceps tenotomy. Postop day 1. Procedure 08/11/[address] Echeverria. 1. Okay to continue therapy. Sling at all times to left upper extremity. Nonweightbearing to left upper extremity. PT/OT ordered and evaluate need for possible intermediate facility placement due to the patient's MRDD and the fact she lives alone independently. 2. Patient is stable orthopedically. Discharge pending evaluation from DD board. Social work is involved and assisting with discharge. Medicine is also on consult. At this point time she is medically stable. 3. Patient will follow up for post op appointment as previously scheduled in 2 weeks 4. Patient has outpatient PT appointment as previously scheduled in 2 weeks 5. WBC 11.9 no acute reactive leukocytosis 6. H/H 11.9/36.3: No post operavtive anemia 7. DVT prophylaxis : Aspirin 81 mg twice daily x 2 weeks 8. Pain control: patient instructed to take tylenol 500mg 2 tablets TID. and oxycodone 1-2 tablets every 4-6 hours only as needed for pain control. 9. ok to remove post op dressing. post op day 1. this was done today during evaluation. ok to leave open to air, ok to cover with bandaids or sterile gauze if needed.
--- NOTE | 2024-08-12 12:11 | CASEMGMT ---
Social Work SW met with pt and Carter James, pts supportive living pharmacy picking technician, to let them know that [facility] has accepted patient. Plan: Discharge to [facility] once [facility] has approved PASRR. Precert will be needed. Darlin Mazariegos, COMPLIANCE TESTER, UTILIZATION REVIEW NURSE
[2024-08-12] MEDS: Insulin Lispro 100 UNIT/ML INSULN.PEN SC ×3 (12:15→20:41)
--- NOTE | 2024-08-12 13:46 | PN_ITS ---
Subjective Subjective Patient seen and examined. Pain is well-controlled. She had no active complaints. Review of systems otherwise negative. Today's postop day 1 for right shoulder rotator cuff repair. Objective Data Objective Data Vital Signs: Vital Signs Temp Pulse Resp BP Pulse Ox O2 Del Method O2 Flow Rate 98.0 F 66 16 141/63 H 100 Room Air 2 08/12/24 07:54 08/12/24 07:54 08/12/24 07:54 08/12/24 07:54 08/12/24 07:54 08/12/24 07:54 08/11/24 15:15 Oxygen Flow Rate (L/min) 2 Oxygen Delivery Method Room Air Weight: 176 lb 5.917 oz Body Mass Index (BMI) 33.3 Intake & Output: Intake and Output for Last 24 Hours 08/10/24 08/11/24 08/12/24 23:59 23:59 23:59 Intake Total 702.75 / 702.75 850 / 850 Balance 702.75 / 702.75 850 / 850 Lab / Micro Data 08/12/24 06:26 08/12/24 06:26 Labs: Laboratory Results - last 24 hr 08/11/24 16:42: POC Glucose 203 H 08/11/24 20:30: POC Glucose 351 H 08/12/24 06:26: WBC 11.9 H, RBC 4.04 L, Hgb 11.9 L, Hct 36.3 L, MCV 89.9, MCH 29.5, MCHC 32.8, RDW Std Deviation 43.2, RDW Coeff of Lidia 13.2, Plt Count 290, MPV 10.0, Immature Gran % (Auto) 0.400, Neut % (Auto) 78.4 H, Lymph % (Auto) 11.7 L, [place] % (Auto) 9.4, Eos % (Auto) 0.0, Baso % (Auto) 0.1, Absolute Neuts (auto) 9.3 H, Absolute Lymphs (auto) 1.39, Nucleated RBC % 0, Sodium 138, Potassium 4.3, Chloride 107, Carbon Dioxide 26.0, Anion Gap 5, BUN 18, Creatinine 0.90, Estim Creat Clear Calc 66.06, Est GFR (MDRD) Af Amer 82, Est GFR (MDRD) Non-Af 68, BUN/Creatinine Ratio 19.9, Glucose 136 H, Calcium 8.6, TSH 0.032 L, Free T4 1.21 08/12/24 06:32: POC Glucose 146 H 08/12/24 11:34: POC Glucose 218 H Physical Exam Const alert, oriented x3 and no apparent distress General Appearance: cooperative and well developed HEENT normocephalic, head/scalp atraumatic and moist oral mucous membranes Eyes PERRL and EOMs intact bilaterally Neck no lymphadenopathy and supple Lymph Lymphatic: no lymphadenopathy noted and no lymphedema noted Resp normal respiratory effort, normal air movement and clear to auscultation bilaterally Cardio regular rate, regular rhythm, S1 normal heart sound, S2 normal heart sound and no murmurs GI normal to inspection, nondistended, normoactive bowel sounds, soft to palpation, non-tender and non-distended Extremity Extremity Narrative: LUE in a sling. Able to wiggle fingers. General Extremity: no tenderness to palpation of joints or extremities Skin General Skin Exam: no breakdown Neuro CN's II-XII intact bilaterally, no focal motor deficits, no sensory deficits noted and deep tendon reflexes 2+ bilaterally Motor Exam: strength 5/5 throughout Psych thought process normal and cooperative Appearance: appropriate Assessment & Plan Assessment/Plan (1) S/P rotator cuff repair: PLAN: Plan Chronic left shoulder impingement syndrome with chronic left rotator cuff tear * S/p left shoulder arthroscopic rotator cuff repair with subacromial decompression and left shoulder bicep tenotomy with debridement of the single labral junction and distal clavicle excision * management as per primary team orthopedics * PT/OT on board * incentive spirometry * fall precautions * #TYpe 2 diabetes mellitus * Last known A1c was 7.1. * sitagliptin and metformin as well as empagliflozin. Also on lantus 32 units daily. * also on pioglitazone. * Sliding scale. Checks ACHS. #Hypertension: on lisinopril and chlorthalidone as well as atenolol Hyperlipidemia: On statin #Hypothyroidism: * on synthroid 50mcg daily. TSH was low at 0.032 but free T4 is within normal limits at 1.21 * Recommend to repeat labs on outpatient basis to see if the TSH is still low. * If it is still low, she may benefit from reducing the dose of Synthroid. #Mild MRDD with intellectual and motor delay * case management on board to help facilitate placement * on sertraline * DVT prophylaxis: as per primary service Charges/Coding Visit Charges Inpatient E&M: 69362 Subs Hosp L2
[2024-08-12 14:00] VITALS: BP 142/58; PULSE 68; RESP 18; TEMP 36.7; O2SAT 99
--- NOTE | 2024-08-12 14:56 | CASEMGMT ---
Met with patient to complete FLORES form. FLORES form explained to patient who voiced understanding but was hesistent to sign. She asked that I review with her casework specialist, Carter. Call placed to Carter who also voiced understanding. Original form placed in pt?s chart and copy provided to patient. Kaela Betancur, Discharge Planning Asst
[2024-08-12 20:32] VITALS: BP 110/57; PULSE 58; RESP 18; TEMP 36.6; O2SAT 98
[2024-08-12] MEDS: Atorvastatin Calcium 20 MG Tablet PO (20:37)
[2024-08-12 22:36] LABS: Bedside Glucose 180 mg/dL (74-106)
[2024-08-12 22:36] LABS: Bedside Glucose 151 mg/dL (74-106)
[2024-08-13] MEDS: oxyCODONE 5 MG Tablet PO ×2 (02:11→06:13)
[2024-08-13 02:23] VITALS: BP 124/56; PULSE 62; RESP 16; TEMP 36.8; O2SAT 99
[2024-08-13] MEDS: Levothyroxine 50 MCG Tablet PO (06:08)
[2024-08-13] MEDS: Acetaminophen 500 MG Tablet 1000 MG PO ×3 (06:08→20:10)
[2024-08-13 06:43] LABS: Absolute Lymphocyte Count 3.03 X10^3/uL (0.83-4.51); Basophil# 0.03 X10^3/uL; Basophil% 0.4 % (0-1); Eosinophil# 0.15 X10^3/uL; Eosinophils% 1.8 % (0-5); Hematocrit 34.3 % (37-47); Lymphocyte # 3.03 X10^3/ul (0.83-4.51); Lymphocyte % 37.2 % (19-41); Mean Corp Hgb Conc 32.1 g/dL (32-36); Mean Corpuscular Hgb 29.3 pg (27.0-32.0); Mean Corpuscular Volume 91.5 fL (81-99); Mean Platelet Vol. 10.2 fl (6.2-12.0); Monocyte# 0.87 X10^3/uL; Monocyte% 10.7 % (0-10); NRBC Flagged by Analyzer 0 % (0-5); Neutrophil # 4.03 X10^3/uL (2.7-7.7); Neutrophil % 49.5 % (47-70); Platelet Count 231 K/mm3 (150-450); RBC Distribution Width CV 13.5 % (11.6-14.6); Red Blood Count 3.75 M/mm3 (4.2-5.4); White Blood Count 8.1 K/mm3 (4.4-11.0)
[2024-08-13 06:46] LABS: Anion Gap 3 (5-15); BUN 21 mg/dL (7-18); BUN/Creat Ratio 21.5 RATIO (10-20); Calcium,Total 8.4 mg/dL (8.5-10.1); Chloride 107 mmol/L (98-107); Creatinine, Serum 0.98 mg/dL (0.55-1.02); EST Glomerular Filtration Rate 62 mL/min (>60); Est Glom Filt Rate - Afr Amer 75 mL/min (>60); Estimated Creatinine Clearance 60.67 ml/min; Glucose 83 mg/dL (74-106); Potassium 3.6 mmol/L (3.5-5.1); Sodium Level 140 mmol/L (136-145)
[2024-08-13 07:12] LABS: Bedside Glucose 77 mg/dL (74-106)
[2024-08-13 09:17] VITALS: BP 96/52; PULSE 60; RESP 18; TEMP 36.4; O2SAT 96
[2024-08-13] MEDS: Menthol/Lanolin/Calamine/Znox 113 GM Tube 1 APPLIC TOPICAL ×2 (09:28→20:11)
[2024-08-13] MEDS: Aspirin 81 MG TAB.CHEW PO ×2 (09:28→20:12)
[2024-08-13] MEDS: Celecoxib 200 MG Capsule PO (09:29)
[2024-08-13] MEDS: DULoxetine Hcl 60 MG Capsule PO (09:29)
[2024-08-13] MEDS: Estradiol 1 MG Tablet PO (09:29)
[2024-08-13] MEDS: Chlorthalidone 50 MG Tablet 25 MG PO (09:30)
[2024-08-13] MEDS: Insulin Glargine-YFGN 100 UNIT/ML Pen 32 UNIT SC (09:30)
[2024-08-13] MEDS: Nystatin Powder 15gm Bottle 1 APPLIC TOPICAL ×2 (09:31→20:11)
[2024-08-13] MEDS: Pantoprazole Sodium 40 MG Tablet PO (09:31)
[2024-08-13] MEDS: Cyanocobalamin 500 MCG Tablet 1000 MCG PO (09:32)
[2024-08-13] MEDS: Cholecalciferol (VIT D3) 25 MCG TABLET (1,000 UNITS) 50 MCG PO (09:32)
[2024-08-13] MEDS: Insulin Lispro 100 UNIT/ML INSULN.PEN SC ×3 (11:32→20:25)
[2024-08-13 11:52] LABS: Bedside Glucose 183 mg/dL (74-106)
--- NOTE | 2024-08-13 14:20 | PN_ITS ---
Subjective Subjective Patient seen and examined. She had no active complaints. Pain was well- controlled. Review of systems otherwise negative. She is awaiting placement. Objective Data Objective Data Vital Signs: Vital Signs Temp Pulse Resp BP Pulse Ox O2 Del Method O2 Flow Rate 97.5 F L 60 18 96/52 L 96 Room Air 2 08/13/24 09:17 08/13/24 09:17 08/13/24 09:17 08/13/24 09:17 08/13/24 09:17 08/13/24 09:17 08/11/24 15:15 Oxygen Flow Rate (L/min) 2 Oxygen Delivery Method Room Air Weight: 176 lb 5.917 oz Body Mass Index (BMI) 33.3 Intake & Output: Intake and Output for Last 24 Hours 08/11/24 08/12/24 08/13/24 23:59 23:59 23:59 Intake Total 702.75 / 702.75 1250 / 1490 720 / 720 Balance 702.75 / 702.75 1250 / 1490 720 / 720 Lab / Micro Data 08/13/24 05:35 08/13/24 05:35 Labs: Laboratory Results - last 24 hr 08/12/24 16:14: POC Glucose 151 H 08/12/24 20:40: POC Glucose 180 H 08/13/24 05:35: WBC 8.1, RBC 3.75 L, Hgb 11.0 L, Hct 34.3 L, MCV 91.5, MCH 29.3, MCHC 32.1, RDW Std Deviation 45.0 H, RDW Coeff of Lidia 13.5, Plt Count 231, MPV 10.2, Immature Gran % (Auto) 0.400, Neut % (Auto) 49.5, Lymph % (Auto) 37.2, M cheko % (Auto) 10.7 H, Eos % (Auto) 1.8, Baso % (Auto) 0.4, Absolute Neuts (auto) 4.0, Absolute Lymphs (auto) 3.03, Nucleated RBC % 0, Sodium 140, Potassium 3.6, Chloride 107, Carbon Dioxide 30.0, Anion Gap 3 L, BUN 21 H, Creatinine 0.98, Estim Creat Clear Calc 60.67, Est GFR (MDRD) Af Amer 75, Est GFR (MDRD) Non-Af 62, BUN/Creatinine Ratio 21.5 H, Glucose 83, Calcium 8.4 L 08/13/24 06:06: POC Glucose 77 08/13/24 11:30: POC Glucose 183 H Physical Exam Const alert, oriented x3 and no apparent distress General Appearance: cooperative and well developed HEENT normocephalic, head/scalp atraumatic and moist oral mucous membranes Eyes PERRL and EOMs intact bilaterally Neck no lymphadenopathy and supple Lymph Lymphatic: no lymphadenopathy noted and no lymphedema noted Resp normal respiratory effort, normal air movement and clear to auscultation bilaterally Cardio regular rate, regular rhythm, S1 normal heart sound, S2 normal heart sound and no murmurs GI normal to inspection, nondistended, normoactive bowel sounds, soft to palpation, non-tender and non-distended Extremity Extremity Narrative: LUE in a sling. Able to wiggle fingers. General Extremity: no tenderness to palpation of joints or extremities Skin General Skin Exam: no breakdown Neuro CN's II-XII intact bilaterally, no focal motor deficits, no sensory deficits noted and deep tendon reflexes 2+ bilaterally Motor Exam: strength 5/5 throughout Psych thought process normal and cooperative Appearance: appropriate Assessment & Plan Assessment/Plan (1) S/P rotator cuff repair: PLAN: Plan Chronic left shoulder impingement syndrome with chronic left rotator cuff tear * S/p left shoulder arthroscopic rotator cuff repair with subacromial decompression and left shoulder bicep tenotomy with debridement of the single labral junction and distal clavicle excision on 08/11/2024. Today is POD 2. * management as per primary team orthopedics * PT/OT on board * incentive spirometry * fall precautions * #TYpe 2 diabetes mellitus * Last known A1c was 7.1. * sitagliptin and metformin as well as empagliflozin. Also on lantus 32 units daily. * also on pioglitazone. * Sliding scale. Checks ACHS. #Hypertension: on lisinopril and chlorthalidone as well as atenolol Hyperlipidemia: On statin #Hypothyroidism: * on synthroid 50mcg daily. TSH was low at 0.032 but free T4 is within normal limits at 1.21 * Recommend to repeat labs on outpatient basis to see if the TSH is still low. * If it is still low, she may benefit from reducing the dose of Synthroid. 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 Case management on board to help facilitate this. Charges/Coding Visit Charges Inpatient E&M: 59209 Subs Hosp L2
[2024-08-13 14:34] VITALS: BP 120/62; PULSE 67; RESP 18; TEMP 36.5; O2SAT 100
[2024-08-13 16:46] LABS: Bedside Glucose 231 mg/dL (74-106)
--- NOTE | 2024-08-13 16:47 | PCM.PN.ORT ---
Subjective Subjective Patient seen and examined. Denies any pain currently. She states overall she feels good. She states she has not had a bowel movement since surgery but is passing gas. Denies any abdominal pain. Denies any fevers, chills, nausea or vomiting, chest pain or shortness of breath. Objective Data Objective Data Vital Signs: Vital Signs Temp Pulse Resp BP Pulse Ox O2 Del Method O2 Flow Rate 97.7 F L 67 18 120/62 100 Room Air 2 08/13/24 14:34 08/13/24 14:34 08/13/24 14:34 08/13/24 14:34 08/13/24 14:34 08/13/24 14:34 08/11/24 15:15 Oxygen Flow Rate (L/min) 2 Oxygen Delivery Method Room Air Weight: 176 lb 5.917 oz Body Mass Index (BMI) 33.3 Intake & Output: Intake and Output for Last 24 Hours 08/11/24 08/12/24 08/13/24 23:59 23:59 23:59 Intake Total 702.75 / 702.75 1250 / 1490 720 / 720 Balance 702.75 / 702.75 1250 / 1490 720 / 720 Lab / Micro Data 08/13/24 05:35 08/13/24 05:35 Labs: Laboratory Results - last 24 hr 08/12/24 16:14: POC Glucose 151 H 08/12/24 20:40: POC Glucose 180 H 08/13/24 05:35: WBC 8.1, RBC 3.75 L, Hgb 11.0 L, Hct 34.3 L, MCV 91.5, MCH 29.3, MCHC 32.1, RDW Std Deviation 45.0 H, RDW Coeff of Lidia 13.5, Plt Count 231, MPV 10.2, Immature Gran % (Auto) 0.400, Neut % (Auto) 49.5, Lymph % (Auto) 37.2, [place] % (Auto) 10.7 H, Eos % (Auto) 1.8, Baso % (Auto) 0.4, Absolute Neuts (auto) 4.0, Absolute Lymphs (auto) 3.03, Nucleated RBC % 0, Sodium 140, Potassium 3.6, Chloride 107, Carbon Dioxide 30.0, Anion Gap 3 L, BUN 21 H, Creatinine 0.98, Estim Creat Clear Calc 60.67, Est GFR (MDRD) Af Amer 75, Est GFR (MDRD) Non-Af 62, BUN/Creatinine Ratio 21.5 H, Glucose 83, Calcium 8.4 L 08/13/24 06:06: POC Glucose 77 08/13/24 11:30: POC Glucose 183 H 08/13/24 16:23: POC Glucose 231 H Physical Exam Narrative General - A&Ox3, NAD. VSS/AF. Left upper Extremity - SILT & 5/5 in radial, ulnar, musculocutaneous, axillary, and median nerve distributions. Radial, ulnar pulses 2+. Compartments soft and compressible. BCR in finger tips. Incision well-approximated with sutures. Diffuse ecchymosis noted. Calves are soft nontender bilaterally. Assessment & Plan Assessment/Plan (1) S/P rotator cuff repair: PLAN: POD# 2 s/p left shoulder arthroscopic rotator cuff repair - Pain control -scheduled Tylenol, Celebrex. As needed oxycodone. - Medicine following for medical management-appreciate input - PT/OT -pendulums only left shoulder, range of motion as tolerated elbow wrist and hand. - DVT PPX -aspirin 81 mg twice daily, SCDs, early mobilization - Discussed her constipation postoperatively. I stressed oral hydration, mobilization. Bowel regimen ordered. - Encouraged incentive spirometry use - Case management - D/C planning. Awaiting DD board evaluation prior to SNF placement. Per social work, suspect patient will be into next week as we work through this process of placement. Patient medically stable for discharge.
[2024-08-13] MEDS: Atorvastatin Calcium 20 MG Tablet PO (20:11)
[2024-08-13 20:52] VITALS: BP 111/56; PULSE 72; RESP 16; TEMP 36.1; O2SAT 98
[2024-08-13 23:30] LABS: Bedside Glucose 277 mg/dL (74-106)
[2024-08-14] MEDS: Levothyroxine 50 MCG Tablet PO (05:20)
[2024-08-14] MEDS: Senna/Docusate Sodium 1 Tablet 2 TABLET PO (05:20)
[2024-08-14] MEDS: Acetaminophen 500 MG Tablet 1000 MG PO ×3 (05:21→20:14)
[2024-08-14 05:25] VITALS: BP 131/65; PULSE 62; RESP 16; TEMP 36.1; O2SAT 100
[2024-08-14 07:23] LABS: Bedside Glucose 118 mg/dL (74-106)
[2024-08-14 08:37] VITALS: BP 135/56; PULSE 71; RESP 18; TEMP 36.7; O2SAT 100
[2024-08-14] MEDS: Insulin Glargine-YFGN 100 UNIT/ML Pen 32 UNIT SC (08:47)
[2024-08-14] MEDS: Lisinopril 40 MG Tablet PO (08:48)
[2024-08-14] MEDS: Pantoprazole Sodium 40 MG Tablet PO (08:48)
[2024-08-14] MEDS: Chlorthalidone 50 MG Tablet 25 MG PO (08:48)
[2024-08-14] MEDS: Cholecalciferol (VIT D3) 25 MCG TABLET (1,000 UNITS) 50 MCG PO (08:48)
[2024-08-14] MEDS: Cyanocobalamin 500 MCG Tablet 1000 MCG PO (08:48)
[2024-08-14] MEDS: Atenolol 100 MG Tablet PO (08:48)
[2024-08-14] MEDS: DULoxetine Hcl 60 MG Capsule PO (08:49)
[2024-08-14] MEDS: Aspirin 81 MG TAB.CHEW PO ×2 (08:49→16:58)
[2024-08-14] MEDS: Estradiol 1 MG Tablet PO (08:49)
[2024-08-14] MEDS: Celecoxib 200 MG Capsule PO (08:49)
[2024-08-14] MEDS: Nystatin Powder 15gm Bottle 1 APPLIC TOPICAL ×2 (08:54→20:13)
[2024-08-14] MEDS: Menthol/Lanolin/Calamine/Znox 113 GM Tube 1 APPLIC TOPICAL ×2 (08:55→20:13)
[2024-08-14] MEDS: Insulin Lispro 100 UNIT/ML INSULN.PEN SC ×3 (11:21→20:23)
--- NOTE | 2024-08-14 12:09 | PN_ITS ---
Subjective Subjective Patient seen and examined. She feels well and has no complaints. Pain is well controlled. Review of systems is otherwise negative. She has remained hemodynamically stable. Objective Data Objective Data Vital Signs: Vital Signs Temp Pulse Resp BP Pulse Ox O2 Del Method O2 Flow Rate 98.1 F 71 18 135/56 H 100 Room Air 2 08/14/24 08:37 08/14/24 08:37 08/14/24 08:37 08/14/24 08:37 08/14/24 08:37 08/14/24 08:37 08/11/24 15:15 Oxygen Flow Rate (L/min) 2 Oxygen Delivery Method Room Air Weight: 176 lb 5.917 oz Body Mass Index (BMI) 33.3 Intake & Output: Intake and Output for Last 24 Hours 08/12/24 08/13/24 08/14/24 23:59 23:59 23:59 Intake Total 1250 / 1490 960 / 960 Balance 1250 / 1490 960 / 960 Lab / Micro Data 08/13/24 05:35 08/13/24 05:35 Labs: Laboratory Results - last 24 hr 08/13/24 16:23: POC Glucose 231 H 08/13/24 20:23: POC Glucose 277 H 08/14/24 07:05: POC Glucose 118 H Physical Exam Const alert, oriented x3 and no apparent distress General Appearance: cooperative and well developed HEENT normocephalic, head/scalp atraumatic and moist oral mucous membranes Eyes PERRL and EOMs intact bilaterally Neck no lymphadenopathy and supple Lymph Lymphatic: no lymphadenopathy noted and no lymphedema noted Resp normal respiratory effort, normal air movement and clear to auscultation bilaterally Cardio regular rate, regular rhythm, S1 normal heart sound, S2 normal heart sound and no murmurs GI normal to inspection, nondistended, normoactive bowel sounds, soft to palpation, non-tender and non-distended Extremity Extremity Narrative: LUE in a sling. Able to wiggle fingers. General Extremity: no tenderness to palpation of joints or extremities Skin General Skin Exam: no breakdown Neuro CN's II-XII intact bilaterally, no focal motor deficits, no sensory deficits noted and deep tendon reflexes 2+ bilaterally Motor Exam: strength 5/5 throughout Psych thought process normal and cooperative Appearance: appropriate Assessment & Plan Assessment/Plan (1) S/P rotator cuff repair: PLAN: Plan Chronic left shoulder impingement syndrome with chronic left rotator cuff tear * S/p left shoulder arthroscopic rotator cuff repair with subacromial decompression and left shoulder bicep tenotomy with debridement of the single labral junction and distal clavicle excision on 08/11/2024. Today is POD 3. * management as per primary team orthopedics * PT/OT on board * incentive spirometry * fall precautions * #TYpe 2 diabetes mellitus * Last known A1c was 7.1. * sitagliptin and metformin as well as empagliflozin. Also on lantus 32 units daily. * also on pioglitazone. * Insulin Sliding scale. Checks ACHS. #Hypertension: on lisinopril and chlorthalidone as well as atenolol Hyperlipidemia: On statin #Hypothyroidism: * on synthroid 50mcg daily. TSH was low at 0.032 but free T4 is within normal limits at 1.21 * Recommend to repeat labs on outpatient basis to see if the TSH is still low. * If it is still low, she may benefit from reducing the dose of Synthroid. 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 Case management on board to help facilitate this. Charges/Coding Visit Charges Inpatient E&M: 50084 Subs Hosp L2
[2024-08-14 12:43] LABS: Bedside Glucose 203 mg/dL (74-106)
--- NOTE | 2024-08-14 13:51 | PCM.PN.ORT ---
Subjective Subjective Patient seen and examined. Pain controlled. Still no BM, positive flatus. Denies fevers, chills, nausea vomiting, chest pain shortness of breath. Denies abdominal pain. Objective Data Objective Data Vital Signs: Vital Signs Temp Pulse Resp BP Pulse Ox O2 Del Method O2 Flow Rate 98.1 F 71 18 135/56 H 100 Room Air 2 08/14/24 08:37 08/14/24 08:37 08/14/24 08:37 08/14/24 08:37 08/14/24 08:37 08/14/24 08:37 08/11/24 15:15 Oxygen Flow Rate (L/min) 2 Oxygen Delivery Method Room Air Weight: 176 lb 5.917 oz Body Mass Index (BMI) 33.3 Intake & Output: Intake and Output for Last 24 Hours 08/12/24 08/13/24 08/14/24 23:59 23:59 23:59 Intake Total 1250 / 1490 960 / 960 240 / 240 Balance 1250 / 1490 960 / 960 240 / 240 Lab / Micro Data 08/13/24 05:35 08/13/24 05:35 Labs: Laboratory Results - last 24 hr 08/13/24 16:23: POC Glucose 231 H 08/13/24 20:23: POC Glucose 277 H 08/14/24 07:05: POC Glucose 118 H 08/14/24 11:19: POC Glucose 203 H Physical Exam Narrative General - A&Ox3, NAD. VSS/AF. Left upper Extremity - SILT & 5/5 in radial, ulnar, musculocutaneous, axillary, and median nerve distributions. Radial, ulnar pulses 2+. Compartments soft and compressible. BCR in finger tips. Incision well-approximated with sutures. Diffuse ecchymosis noted. Calves are soft nontender bilaterally. Assessment & Plan Assessment/Plan (1) S/P rotator cuff repair: PLAN: POD# 3 s/p left shoulder arthroscopic rotator cuff repair -Patient doing well. Positive flatus, no BM. Senna S ordered. Continue senna S, mobilization, judicious opioid use, oral hydration. - Pain control -scheduled Tylenol, Celebrex. As needed oxycodone. Encourage patient to take oxycodone only if need be to help stimulate her bowels. - Medicine following for medical management-appreciate input - PT/OT -pendulums only left shoulder, range of motion as tolerated elbow wrist and hand. - DVT PPX -aspirin 81 mg twice daily, SCDs, early mobilization - Encouraged incentive spirometry use - Case management - D/C planning. Awaiting DD board evaluation prior to SNF placement. Per social work, suspect patient will be into next week as we work through this process of placement. Patient medically stable for discharge.
[2024-08-14 14:00] VITALS: BP 122/66; PULSE 64; RESP 18; TEMP 36.1; O2SAT 100
[2024-08-14 17:35] LABS: Bedside Glucose 192 mg/dL (74-106)
[2024-08-14] MEDS: Atorvastatin Calcium 20 MG Tablet PO (20:13)
[2024-08-14 20:15] VITALS: BP 126/64; PULSE 61; RESP 16; TEMP 36.1; O2SAT 100
[2024-08-14 23:28] LABS: Bedside Glucose 154 mg/dL (74-106)
[2024-08-15] MEDS: Levothyroxine 50 MCG Tablet PO (06:26)
[2024-08-15] MEDS: Acetaminophen 500 MG Tablet 1000 MG PO ×3 (06:26→21:08)
[2024-08-15 07:05] LABS: Bedside Glucose 102 mg/dL (74-106)
[2024-08-15 08:39] VITALS: BP 127/70; PULSE 65; RESP 16; TEMP 36.1; O2SAT 96
[2024-08-15] MEDS: Pantoprazole Sodium 40 MG Tablet PO (09:04)
[2024-08-15] MEDS: Atenolol 100 MG Tablet PO (09:04)
[2024-08-15] MEDS: Cyanocobalamin 500 MCG Tablet 1000 MCG PO (09:04)
[2024-08-15] MEDS: Nystatin Powder 15gm Bottle 1 APPLIC TOPICAL ×2 (09:05→21:09)
[2024-08-15] MEDS: Lisinopril 40 MG Tablet PO (09:05)
[2024-08-15] MEDS: DULoxetine Hcl 60 MG Capsule PO (09:06)
[2024-08-15] MEDS: Cholecalciferol (VIT D3) 25 MCG TABLET (1,000 UNITS) 50 MCG PO (09:07)
[2024-08-15] MEDS: Estradiol 1 MG Tablet PO (09:07)
[2024-08-15] MEDS: Celecoxib 200 MG Capsule PO (09:07)
[2024-08-15] MEDS: Sertraline 50 MG Tablet PO (09:07)
[2024-08-15] MEDS: Insulin Glargine-YFGN 100 UNIT/ML Pen 32 UNIT SC (09:08)
[2024-08-15] MEDS: Menthol/Lanolin/Calamine/Znox 113 GM Tube 1 APPLIC TOPICAL ×2 (09:09→21:07)
[2024-08-15] MEDS: Aspirin 81 MG TAB.CHEW PO ×2 (09:14→16:30)
--- NOTE | 2024-08-15 10:19 | PCM.PN.ORT ---
Subjective Subjective Patient is a 59-year-old female status post left shoulder arthroscopy with rotator cuff repair, subacromial decompression biceps tenotomy, debridement of capsule and labrum and distal clavicle excision on 08/11/[address] Echeverria. Patient was found ambulating in the hallway independently , accompanied by counselor. Rates pain 3/10. States taking tylenol and oxycodone and ice help to relieve pain. ok to continue therapy to encourage mobility. patient to continue sling use at all times nonweightbearing to left upper extremity. Afebrile, no chest pain, shortness of breath, negative calf pain/ erythema, and no other signs of DVT. Objective Data Objective Data Vital Signs: Vital Signs Temp Pulse Resp BP Pulse Ox O2 Del Method O2 Flow Rate 97 F L 65 16 127/70 H 96 Room Air 2 08/15/24 08:39 08/15/24 08:39 08/15/24 08:39 08/15/24 08:39 08/15/24 08:39 08/15/24 08:39 08/11/24 15:15 Oxygen Flow Rate (L/min) 2 Oxygen Delivery Method Room Air Weight: 80 kg Body Mass Index (BMI) 33.3 Intake & Output: Intake and Output for Last 24 Hours 08/13/24 08/14/24 08/15/24 23:59 23:59 23:59 Intake Total 960 / 960 480 / 480 Balance 960 / 960 480 / 480 Lab / Micro Data 08/13/24 05:35 08/13/24 05:35 Labs: Laboratory Results - last 24 hr 08/14/24 11:19: POC Glucose 203 H 08/14/24 16:25: POC Glucose 192 H 08/14/24 20:20: POC Glucose 154 H 08/15/24 06:33: POC Glucose 102 Physical Exam Narrative patient afebrile satting well on RA sling in place to left upper extremity Intact radial pulses Sensation intact to left upper extremity Intact to radial, median, ulnar nerve distribution Assessment & Plan Assessment/Plan (1) S/P rotator cuff repair: PLAN: Plan Patient is postop day 4 status post left shoulder arthroscopy, rotator cuff repair, subacromial decompression, distal clavicle excision and debridement of labrum and Biceps Tenotomy with Dr. Echeverria 08/11/2024. 1. Sling at all times to left upper extremity. Nonweightbearing to left upper extremity. PT/OT ordered and evaluate need for possible [facility] facility [facility] due to the patient's MRDD and the fact she lives alone independently. 2. Patient is stable orthopedically and medically and ready for discharge. Discharge pending evaluation from DD board. Social work is involved and assisting with discharge. 3. Patient will follow up for post op appointment as previously scheduled in 2 weeks 4. Patient has outpatient PT appointment as previously scheduled in 2 weeks 5. no recent updated labwork due to stability. 6.. DVT prophylaxis : Aspirin 81 mg twice daily x 2 weeks 7. Pain control: patient instructed to take tylenol 500mg 2 tablets TID, celebrex and oxycodone 1-2 tablets every 4-6 hours only as needed for pain control. 8. ok to leave sutures open to air, ok to cover with bandaids or sterile gauze if needed. 9. patient did have a BM today. continue senna as needed. encourage mobilization, fluids, and judicious use of opiods only
--- NOTE | 2024-08-15 10:28 | DCINST_ITS ---
Discharge Instructions Diet Discharge Diet: No restrictions (diabetic diet ) Activity Discharge Activity: Return to Normal Activity (with sling at all times. ) and May Shower Weight Bearing Status: No weight bearing (to left upper extremity) Dressing / Incision Call your doctor if your incision/area has: Continuous Slow Oozing, Sudden Increased Bleeding, Increased Pain/ Swelling, Increased Redness, Foul Smelling Discharge and Swelling at the incision site Call your doctor if you observe: Fever of 101 or Higher, Inability to have a bowel movement, Shortness of breath, Dizziness, Chest pain, Calf discomfort and Uncontrolled pain Cleanse incision/area with: Soap & Water and Keep Dressing Clean & Dry Follow Up Care When: In 2 weeks as previously scheduled post orthopedics. Test Results: Test results from this visit will be discussed in further detail at your follow- up appointment, if applicable. Discharge Plan Admission Admit Date/Time: 08/11/24 14:08 Attending Provider: Hi Echeverria Primary Care Provider: Ranjeet Shine Consulting Providers: Ferdinand Martinez; Harshil Cotton; Gely Teixeira; Ata Foreman; Ambreen Gómez; Roberto Nogueira; Roberto Ortiz; Jorge Alberto Khanna; Shania Mcdonald; Juan Pablo Giron; Davida Lr; Hunter Solomon; Joana Marie; Hi Keller; George Contreras; Scott Goetz; Armida Funes; Lowell Abraham Discharge Orders/Prescriptions Prescriptions: New acetaminophen 500 mg Tablet 1,000 mg PO Q8 Qty: 180 0RF aspirin 81 mg Tablet,Chewable 81 mg PO BIDCM 14 Days Qty: 28 0RF sennosides-docusate sodium [Stimulant Laxative Plus] 8.6-50 mg Tablet 2 tab PO DAILY PRN PRN (Reason: Constipation) Qty: 14 0RF oxycodone 5 mg Tablet 5 mg PO .q4-6 hrs prn PRN (Reason: pain 4-10) 7 Days Qty: 20 0RF Continued cholecalciferol (vitamin D3) 2,000 unit capsule 2,000 unit PO DAILY atorvastatin 20 MG tablet 20 mg PO QHS atenolol 100 MG tablet 100 mg PO DAILY estradiol 1 MG tablet 1 mg PO DAILY metformin 1,000 MG tablet 1,000 mg PO BIDCM duloxetine 60 MG capsule 60 mg PO DAILY sitagliptin phosphate 100 MG tablet 100 mg PO DAILY celecoxib 200 mg capsule 200 mg PO DAILY ABC Complete Women's 18-400 mg-mcg tablet 1 tab PO DAILY chlorthalidone 25 mg tablet 25 mg PO DAILY cyanocobalamin (vitamin B-12) [Vitamin B-12] 1,000 mcg tablet 1,000 mcg PO DAILY Jardiance 25 mg tablet 25 mg PO DAILY hydroxyzine HCl 25 mg tablet 25 mg PO Q6H PRN (Reason: anxiety) levothyroxine 50 mcg tablet 50 mcg PO DAILY omeprazole 20 mg capsule,delayed release(DR/EC) 40 mg PO DAILY lisinopril 40 mg tablet 40 mg PO DAILY pioglitazone 15 mg tablet 30 mg PO DAILY sertraline [Zoloft] 50 mg tablet 50 mg PO DAILY insulin glargine 100 UNITS/ML insulin pen 32 unit SQ DAILY Rx Instructions: takenin the morning Held aspirin 81 MG tablet,chewable 81 mg PO DAILY Hold Instructions: Resume on 08/25/24. Referrals / Follow Up: Ranjeet Shine MD [Primary Care Provider] -
--- NOTE | 2024-08-15 10:30 | PCM.TXEXTCAR ---
Diet Diet Order/Speech Therapy: 08/12/24 11:12 Diet: Carbohydrate Controlled Wound(s) LEFT SHOULDER: Wound Type: Surgical Incision Suggestions for Active Care Positions to Avoid: sling at all times, nonweightbearing left upper extremity Therapies Weight Bearing: Non weight bearing (left upper extremity) Extremity Affected:: Left Lower Physical Therapy: Eval and Treat Occupational Therapy: Eval and Treat Problem/Diagnosis (1) S/P rotator cuff repair: Status: Acute Code(s): Z98.890 - Other specified postprocedural states Plan Patient is postop day 4 status post left shoulder arthroscopy, rotator cuff repair, subacromial decompression, distal clavicle excision and debridement of labrum and Biceps Tenotomy with Dr. Echeverria 08/11/2024. 1. Sling at all times to left upper extremity. Nonweightbearing to left upper extremity. PT/OT ordered and evaluate need for possible fpc facility placement due to the patient's MRDD and the fact she lives alone independently. 2. Patient is stable orthopedically and medically and ready for discharge. Discharge pending evaluation from DD board. Social work is involved and assisting with discharge. 3. Patient will follow up for post op appointment as previously scheduled in 2 weeks 4. Patient has outpatient PT appointment as previously scheduled in 2 weeks 5. no recent updated labwork due to stability. 6.. DVT prophylaxis : Aspirin 81 mg twice daily x 2 weeks 7. Pain control: patient instructed to take tylenol 500mg 2 tablets TID, celebrex and oxycodone 1-2 tablets every 4-6 hours only as needed for pain control. 8. ok to leave sutures open to air, ok to cover with bandaids or sterile gauze if needed. 9. patient did have a BM today. continue senna as needed. encourage mobilization, fluids, and judicious use of opiods only Allergies/Procedures Done in Hospital Allergies Bleach (Sodium Hypochlorite) Allergy (Severe, Verified 08/11/24 11:43) HIVES amoxicillin Allergy (Verified 08/11/24 11:43) Hives Penicillins Allergy (Verified 08/11/24 11:43) Rash Sulfa (Sulfonamide Antibiotics) Adverse Reaction (Verified 08/11/24 11:43) Nausea/Vom/Diarrhea Type of Care/Length of Stay Estimated LOS: More Than 30 Days Type of Care Needed: Skilled Rehab Potential: Good Prognosis: Good Follow Up Care When: With [facility] in office as previously scheduled 2 weeks postop Discharge Plan Admission Admit Date/Time: 08/11/24 14:08 Attending Provider: Hi Echeverria Primary Care Provider: Ranjeet Shine Consulting Providers: Ferdinand Martinez; Harshil Cotton; Gely Teixeira; Ata Foreman; Ambreen Gómez; Roberto Nogueira; Roberto Ortiz; Jorge Alberto Khanna; Shania Mcdonald; Juan Pablo Giron; Davida Lr; Hunter Solomon; Joana Marie; Hi Keller; George Contreras; Scott Goetz; Armida Funes; Lowell Abraham Discharge Orders/Prescriptions Prescriptions: No Action cholecalciferol (vitamin D3) 2,000 unit capsule 2,000 unit PO DAILY atorvastatin 20 MG tablet 20 mg PO QHS atenolol 100 MG tablet 100 mg PO DAILY estradiol 1 MG tablet 1 mg PO DAILY metformin 1,000 MG tablet 1,000 mg PO BIDCM duloxetine 60 MG capsule 60 mg PO DAILY sitagliptin phosphate 100 MG tablet 100 mg PO DAILY aspirin 81 MG tablet,chewable 81 mg PO DAILY celecoxib 200 mg capsule 200 mg PO DAILY ABC Complete Women's 18-400 mg-mcg tablet 1 tab PO DAILY chlorthalidone 25 mg tablet 25 mg PO DAILY cyanocobalamin (vitamin B-12) [Vitamin B-12] 1,000 mcg tablet 1,000 mcg PO DAILY Jardiance 25 mg tablet 25 mg PO DAILY hydroxyzine HCl 25 mg tablet 25 mg PO Q6H PRN (Reason: anxiety) levothyroxine 50 mcg tablet 50 mcg PO DAILY omeprazole 20 mg capsule,delayed release(DR/EC) 40 mg PO DAILY lisinopril 40 mg tablet 40 mg PO DAILY pioglitazone 15 mg tablet 30 mg PO DAILY sertraline [Zoloft] 50 mg tablet 50 mg PO DAILY insulin glargine 100 UNITS/ML insulin pen 32 unit SQ DAILY Rx Instructions: takenin the morning Referrals / Follow Up: Ranjeet Shine MD [Primary Care Provider] -
--- NOTE | 2024-08-15 11:19 | CASEMGMT ---
Social Work Spoke with Charbel Morocho at the [facility] Board of , inquiring as to if patient still in hospital or at [facility], as needs to address Level II PASRR screen. Updated Charbel to patient remaining at [facility] until the level II evaluation is done and PASRR results are back. Charbel will be to hospital today for a face to face. Provided patient's room number. Plan: Pending SNF placement once the PASRR screen results are back. -BETH Corey
[2024-08-15] MEDS: Chlorthalidone 50 MG Tablet 25 MG PO (11:38)
[2024-08-15] MEDS: Insulin Lispro 100 UNIT/ML INSULN.PEN SC ×2 (11:42→16:29)
[2024-08-15 12:29] LABS: Bedside Glucose 167 mg/dL (74-106)
--- NOTE | 2024-08-15 15:37 | CASEMGMT ---
Social Work- SW spoke with Board of DD professor of mechanical engineering who states that he will work to complete their portion of documentation and provided a contact for any follow up. LEEANN Chairez
[2024-08-15 16:00] VITALS: BP 132/62; PULSE 57; RESP 16; TEMP 36.4; O2SAT 100
[2024-08-15 16:54] LABS: Bedside Glucose 306 mg/dL (74-106)
[2024-08-15] MEDS: Atorvastatin Calcium 20 MG Tablet PO (21:09)
[2024-08-15 22:22] VITALS: BP 115/52; PULSE 75; RESP 16; TEMP 36.6; O2SAT 100
[2024-08-15 23:40] LABS: Bedside Glucose 145 mg/dL (74-106)
[2024-08-16] MEDS: Levothyroxine 50 MCG Tablet PO (05:50)
[2024-08-16] MEDS: Acetaminophen 500 MG Tablet 1000 MG PO ×3 (05:50→20:32)
[2024-08-16 06:05] VITALS: BP 116/59; PULSE 54; RESP 16; TEMP 36.5; O2SAT 98
[2024-08-16 06:16] LABS: Bedside Glucose 79 mg/dL (74-106)
[2024-08-16 10:02] VITALS: BP 126/53; PULSE 62; RESP 16; TEMP 36.8; O2SAT 100
[2024-08-16] MEDS: Celecoxib 200 MG Capsule PO (10:06)
[2024-08-16] MEDS: Sertraline 50 MG Tablet PO (10:06)
[2024-08-16] MEDS: Chlorthalidone 50 MG Tablet 25 MG PO (10:06)
[2024-08-16] MEDS: Aspirin 81 MG TAB.CHEW PO ×2 (10:06→16:18)
[2024-08-16] MEDS: DULoxetine Hcl 60 MG Capsule PO (10:07)
[2024-08-16] MEDS: Cholecalciferol (VIT D3) 25 MCG TABLET (1,000 UNITS) 50 MCG PO (10:07)
[2024-08-16] MEDS: Atenolol 100 MG Tablet PO (10:07)
[2024-08-16] MEDS: Lisinopril 40 MG Tablet PO (10:07)
[2024-08-16] MEDS: Insulin Glargine-YFGN 100 UNIT/ML Pen 32 UNIT SC (10:08)
[2024-08-16] MEDS: Cyanocobalamin 500 MCG Tablet 1000 MCG PO (10:08)
[2024-08-16] MEDS: Pantoprazole Sodium 40 MG Tablet PO (10:08)
[2024-08-16] MEDS: Nystatin Powder 15gm Bottle 1 APPLIC TOPICAL ×2 (10:08→20:31)
[2024-08-16] MEDS: Estradiol 1 MG Tablet PO (10:08)
[2024-08-16] MEDS: Menthol/Lanolin/Calamine/Znox 113 GM Tube 1 APPLIC TOPICAL ×2 (10:50→20:32)
[2024-08-16] MEDS: Insulin Lispro 100 UNIT/ML INSULN.PEN SC ×3 (11:47→20:36)
[2024-08-16 12:32] LABS: Bedside Glucose 233 mg/dL (74-106)
--- NOTE | 2024-08-16 12:44 | CASEMGMT ---
Discharge Planning Level II determination has been received. Determination and updates sent to [facility] with request to submit for precert. SW updated. Kaela Betancur DC Planning Asst.
--- NOTE | 2024-08-16 13:03 | CASEMGMT ---
Social Work- KAYLYNN spoke with Carter, Outreach CM, to provide updates on d/c progress. Carter requests a call at d/c as well. LEEANN Chairez
--- NOTE | 2024-08-16 15:11 | CASEMGMT ---
Social Work- KAYLYNN spoke with Lindsay at [facility] who states that they are sending request for precert for medical review. [facility] will make a determination or request a peer to peer within the next 24 hours. LEEANN Chairez
[2024-08-16 16:14] VITALS: BP 124/73; PULSE 58; RESP 16; TEMP 37; O2SAT 98
[2024-08-16 17:01] LABS: Bedside Glucose 237 mg/dL (74-106)
--- NOTE | 2024-08-16 17:50 | PCM.PN.ORT ---
Subjective Subjective Patient seen and examined. She reports minimal pain. She states she is learned how to dress herself with the assistance of occupational therapy. She denies any issues. Objective Data Objective Data Vital Signs: Vital Signs Temp Pulse Resp BP Pulse Ox O2 Del Method O2 Flow Rate 98.6 F 58 L 16 124/73 H 98 Room Air 2 08/16/24 16:14 08/16/24 16:14 08/16/24 16:14 08/16/24 16:14 08/16/24 16:14 08/16/24 16:14 08/11/24 15:15 Oxygen Flow Rate (L/min) 2 Oxygen Delivery Method Room Air Weight: 176 lb 5.917 oz Body Mass Index (BMI) 33.3 Intake & Output: Intake and Output for Last 24 Hours 08/14/24 08/15/24 08/16/24 23:59 23:59 23:59 Intake Total 480 / 480 Balance 480 / 480 Lab / Micro Data 08/13/24 05:35 08/13/24 05:35 Labs: Laboratory Results - last 24 hr 08/15/24 21:06: POC Glucose 145 H 08/16/24 05:52: POC Glucose 79 08/16/24 11:45: POC Glucose 233 H 08/16/24 16:14: POC Glucose 237 H Physical Exam Narrative General - A&Ox3, NAD. VSS/AF. Left upper Extremity - SILT & 5/5 in radial, ulnar, musculocutaneous, axillary, and median nerve distributions. Radial, ulnar pulses 2+. Compartments soft and compressible. BCR in finger tips. Incision well-approximated with sutures. Diffuse ecchymosis noted. Calves are soft nontender bilaterally. Assessment & Plan Assessment/Plan (1) S/P rotator cuff repair: PLAN: POD# 5 s/p left shoulder arthroscopic rotator cuff repair -Patient doing well. Continue current pain regimen. Encouraged the patient to mobilize as tolerated. She may shower when able. - Medicine following for medical management-appreciate input - PT/OT -pendulums only left shoulder, range of motion as tolerated elbow wrist and hand. - DVT PPX -aspirin 81 mg twice daily, SCDs, early mobilization - Encouraged incentive spirometry use - Case management - D/C planning. Apparently were awaiting pre-CERT from insurance. She is stable from my standpoint for discharge when pre-CERT obtained.
[2024-08-16] MEDS: Atorvastatin Calcium 20 MG Tablet PO (20:33)
[2024-08-16 20:43] VITALS: BP 107/59; PULSE 59; RESP 16; TEMP 36.1; O2SAT 100
[2024-08-16 21:35] LABS: Bedside Glucose 182 mg/dL (74-106)
[2024-08-17] MEDS: Acetaminophen 500 MG Tablet 1000 MG PO ×3 (06:00→21:54)
[2024-08-17] MEDS: Levothyroxine 50 MCG Tablet PO (06:01)
[2024-08-17 06:14] VITALS: BP 114/71; PULSE 58; RESP 16; TEMP 36.2; O2SAT 100
[2024-08-17 06:50] LABS: Bedside Glucose 105 mg/dL (74-106)
[2024-08-17 10:33] VITALS: PULSE 59
[2024-08-17 10:43] VITALS: BP 131/71; PULSE 59; RESP 18; TEMP 36.6; O2SAT 100
[2024-08-17] MEDS: DULoxetine Hcl 60 MG Capsule PO (10:46)
[2024-08-17] MEDS: Estradiol 1 MG Tablet PO (10:46)
[2024-08-17] MEDS: Aspirin 81 MG TAB.CHEW PO ×2 (10:46→16:28)
[2024-08-17] MEDS: Celecoxib 200 MG Capsule PO (10:46)
[2024-08-17] MEDS: Chlorthalidone 50 MG Tablet 25 MG PO (10:46)
[2024-08-17] MEDS: Insulin Glargine-YFGN 100 UNIT/ML Pen 32 UNIT SC (10:47)
[2024-08-17] MEDS: Nystatin Powder 15gm Bottle 1 APPLIC TOPICAL ×2 (10:47→21:55)
[2024-08-17] MEDS: Cholecalciferol (VIT D3) 25 MCG TABLET (1,000 UNITS) 50 MCG PO (10:48)
[2024-08-17] MEDS: Cyanocobalamin 500 MCG Tablet 1000 MCG PO (10:48)
[2024-08-17] MEDS: Pantoprazole Sodium 40 MG Tablet PO (10:48)
[2024-08-17] MEDS: Atenolol 100 MG Tablet PO (10:48)
[2024-08-17] MEDS: Lisinopril 40 MG Tablet PO (10:48)
[2024-08-17] MEDS: Sertraline 50 MG Tablet PO (10:49)
[2024-08-17] MEDS: Menthol/Lanolin/Calamine/Znox 113 GM Tube 1 APPLIC TOPICAL ×2 (10:49→21:54)
[2024-08-17] MEDS: Insulin Lispro 100 UNIT/ML INSULN.PEN SC ×3 (11:35→22:01)
[2024-08-17 12:02] LABS: Bedside Glucose 188 mg/dL (74-106)
--- NOTE | 2024-08-17 12:10 | PCM.PN.ORT ---
Subjective Subjective Patient is a 59-year-old female post op day 6 status post left shoulder arthroscopy with rotator cuff repair, subacromial decompression biceps tenotomy, debridement of capsule and labrum and distal clavicle excision on 08/11/[address] Echeverria. no acute changes since yesterday. pain under control . States taking tylenol and oxycodone and ice help to relieve pain. ok to continue therapy to encourage mobility. patient to continue sling use at all times nonweightbearing to left upper extremity. Afebrile, no chest pain, shortness of breath, negative calf pain/ erythema, and no other signs of DVT. Objective Data Objective Data Vital Signs: Vital Signs Temp Pulse Resp BP Pulse Ox O2 Del Method O2 Flow Rate 97.9 F 59 L 18 131/71 H 100 Room Air 2 08/17/24 10:43 08/17/24 10:43 08/17/24 10:43 08/17/24 10:43 08/17/24 10:43 08/17/24 10:43 08/11/24 15:15 Oxygen Flow Rate (L/min) 2 Oxygen Delivery Method Room Air Weight: 80 kg Body Mass Index (BMI) 33.3 Lab / Micro Data 08/13/24 05:35 08/13/24 05:35 Labs: Laboratory Results - last 24 hr 08/16/24 11:45: POC Glucose 233 H 08/16/24 16:14: POC Glucose 237 H 08/16/24 20:36: POC Glucose 182 H 08/17/24 06:04: POC Glucose 105 08/17/24 11:32: POC Glucose 188 H Physical Exam Narrative patient afebrile satting well on RA sling in place to left upper extremity Intact radial pulses Sensation intact to left upper extremity Intact to radial, median, ulnar nerve distribution Assessment & Plan Assessment/Plan (1) S/P rotator cuff repair: PLAN: postop day 6 status post left shoulder arthroscopy, rotator cuff repair, subacromial decompression, distal clavicle excision and debridement of labrum and Biceps Tenotomy with Dr. Echeverria 08/11/2024. 1. Sling at all times to left upper extremity. Nonweightbearing to left upper extremity. PT/OT ordered and evaluate need for possible assisted facility placement due to the patient's MRDD and the fact she lives alone independently. 2. Patient is stable orthopedically and medically and ready for discharge. Evaluation from DD board was done and approved for SNF placemetn Discharge is pending insurance approval for SNF. Social work is involved and assisting with discharge. 3. Patient will follow up for post op appointment as previously scheduled in 2 weeks 4. Patient has outpatient PT appointment as previously scheduled in 2 weeks 5. no recent updated labwork due to stability. 6. DVT prophylaxis : Aspirin 81 mg twice daily x 2 weeks 7. Pain control: patient instructed to take tylenol 500mg 2 tablets TID, celebrex and oxycodone 1-2 tablets every 4-6 hours only as needed for pain control. 8. ok to leave sutures open to air, ok to cover with bandaids or sterile gauze if needed.
--- NOTE | 2024-08-17 13:00 | CASEMGMT ---
Addendum entered by Christy Schmidt 08/17/24 14:13: [facility] is requesting updated therapy notes based on need for assistance from sit to stand based on a discrepancy, last therapy notes they have are from the . A deadline of have until 10 am tomorrow was issued to get updated therapy notes to them. KAYLYNN called Malathi Hayden [phone] ext [phone], [place] [facility] to discuss alternate care plans if pt is denied. Malathi states that she already requested 40 additional care hours for pt at home that she can activate. Pt ANDRES Carter James [phone] can transport pt to outpatient therapy and would be the person to call to make those arrangements. KAYLYNN will continue to follow. LEEANN Chairez Original Note: Social Work- KAYLYNN received a call from Dee at [facility] who reports that they are requesting a [id number] prior to making their final decision on authorization for therapy. The number to call is : [phone] option 5 with a deadline of 17:00 today (08/17). They will need the pt name (Carole Rand), ([id number]), and ). Dr Echeverria advised. LEEANN Chairez
--- NOTE | 2024-08-17 14:07 | CASEMGMT ---
Discharge Planning Requested therapy notes sent to [facility] to forward to [facility]. Kaela Betancur DC Planning Asst.
[2024-08-17 14:24] VITALS: BP 142/63; PULSE 56; RESP 18; TEMP 36.1; O2SAT 100
--- NOTE | 2024-08-17 16:50 | PCM.HOSP.N ---
Hospitalist Note No active medical issues. Dischage pending insurance authorization. The Hospitalist service will sign off. Please reconsult if new issues arise.
[2024-08-17 17:02] LABS: Bedside Glucose 170 mg/dL (74-106)
[2024-08-17 21:00] VITALS: BP 113/61; PULSE 67; RESP 16; TEMP 36.3; O2SAT 100
[2024-08-17] MEDS: Atorvastatin Calcium 20 MG Tablet PO (21:54)
[2024-08-17 23:16] LABS: Bedside Glucose 212 mg/dL (74-106)
[2024-08-18 03:00] VITALS: BP 136/74; PULSE 69; RESP 16; TEMP 36.4; O2SAT 100
[2024-08-18] MEDS: Acetaminophen 500 MG Tablet 1000 MG PO ×2 (06:03→13:47)
[2024-08-18] MEDS: Levothyroxine 50 MCG Tablet PO (06:03)
[2024-08-18 06:57] LABS: Bedside Glucose 88 mg/dL (74-106)
[2024-08-18] MEDS: Cholecalciferol (VIT D3) 25 MCG TABLET (1,000 UNITS) 50 MCG PO (08:44)
[2024-08-18] MEDS: Chlorthalidone 50 MG Tablet 25 MG PO (08:44)
[2024-08-18] MEDS: Celecoxib 200 MG Capsule PO (08:44)
[2024-08-18] MEDS: Aspirin 81 MG TAB.CHEW PO (08:44)
[2024-08-18] MEDS: DULoxetine Hcl 60 MG Capsule PO (08:44)
[2024-08-18] MEDS: Pantoprazole Sodium 40 MG Tablet PO (08:45)
[2024-08-18] MEDS: Lisinopril 40 MG Tablet PO (08:45)
[2024-08-18] MEDS: Atenolol 100 MG Tablet PO (08:45)
[2024-08-18] MEDS: Cyanocobalamin 500 MCG Tablet 1000 MCG PO (08:45)
[2024-08-18] MEDS: Estradiol 1 MG Tablet PO (08:46)
[2024-08-18] MEDS: Sertraline 50 MG Tablet PO (08:46)
[2024-08-18] MEDS: Nystatin Powder 15gm Bottle 1 APPLIC TOPICAL (08:46)
[2024-08-18] MEDS: Insulin Glargine-YFGN 100 UNIT/ML Pen 32 UNIT SC (08:49)
[2024-08-18] MEDS: Menthol/Lanolin/Calamine/Znox 113 GM Tube 1 APPLIC TOPICAL (08:51)
[2024-08-18 08:54] VITALS: BP 139/52; PULSE 65; RESP 16; TEMP 36.4; O2SAT 100
--- NOTE | 2024-08-18 09:26 | CASEMGMT ---
Social Work- KAYLYNN received notice of declination from [facility]. KAYLYNN called ANDRES Benitez, who is agreeable to pt returning home with additional aide service and OP therapy. Malathi reports that ANDRES Machado will transport home. KAYLYNN called ANDRES Machado to confirm; Carter is agreeable. Carter reports that pt has a follow up on 08/[address] Echeverria office and also has PT scheduled for 08/23. KAYLYNN advised physician of plans. ERASMO advised. 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 LEEANN Chairez
--- NOTE | 2024-08-18 09:39 | CASEMGMT ---
Discharge Planning [facility] updated that pt has decided to return home. Kaela Betancur DC Planning Asst.
--- NOTE | 2024-08-18 10:36 | CASEMGMT ---
ALEJO CAMPOS called [facility] clinical department, notified pt is DC today to home. Stated pt has a follow up appointment scheduled for 08/23/24. Confirmed ok to wait until 08/23 to see therapy again.
[2024-08-18] MEDS: Insulin Lispro 100 UNIT/ML INSULN.PEN SC (11:02)
[2024-08-18 11:23] VITALS: BP 124/61; PULSE 58; RESP 16; TEMP 36.4; O2SAT 100
--- NOTE | 2024-08-18 11:30 | PCM.DC.SUM ---
Providers Date of Admission: 08/11/24 Date of Discharge: 08/18/24 Primary Care Physician: Dr. Ranjeet Sihne MD Consultations 08/11/24 14:17 Consult: Hospitalist Routine Consulting Provider: [facility] Reason for Consult: Medical management s/p shoulder arthroscopy EMERGENT Consult: No MD Notified: Yes Date Notified: 08/11/24 Time Notified: 16:26 Method of Notification: Text Reason For Visit: LEFT SHOULDER ARTHROSCOPY WITH SUBA Diagnosis Discharge Diagnosis (1) S/P rotator cuff repair: Status: Acute Code(s): Z98.890 - Other specified postprocedural states Plan: postop day 7 status post left shoulder arthroscopy, rotator cuff repair, subacromial decompression, distal clavicle excision and debridement of labrum and Biceps Tenotomy with Dr. Echeverria 08/11/2024. 1. Sling at all times to left upper extremity. Nonweightbearing to left upper extremity. Patient was deemed appropriate for SNF per DD board, however insurance denied her. 2. Patient is stable orthopedically and medically and ready for discharge. Social work is involved and assisting with discharge. 3. Patient will follow up for post op appointment as previously scheduled in 2 weeks 4. Patient has outpatient PT appointment as previously scheduled in 2 weeks 5. no recent updated labwork due to stability. 6. DVT prophylaxis : Aspirin 81 mg twice daily x 2 weeks 7. Pain control: patient instructed to take tylenol 500mg 2 tablets TID, celebrex and oxycodone 1-2 tablets every 4-6 hours only as needed for pain control. 8. ok to leave sutures open to air, ok to cover with bandaids or sterile gauze if needed. Medications at Discharge Home Medications atenolol 100 mg tablet 100 mg PO DAILY blood pressure 02/24/18 atorvastatin 20 mg tablet 20 mg PO QHS cholesterol 02/24/18 duloxetine 60 mg capsule,delayed release 60 mg PO DAILY mental health 02/24/18 estradiol 1 mg tablet 1 mg PO DAILY supplement 02/24/18 metformin 1,000 mg tablet 1,000 mg PO BIDCM diabetic 02/24/18 sitagliptin phosphate 100 mg tablet 100 mg PO DAILY blood sugar 02/24/18 aspirin 81 mg chewable tablet 81 mg PO DAILY heart health 02/17/19 cholecalciferol (vitamin D3) 50 mcg (2,000 unit) capsule 2,000 unit PO DAILY vitamin 04/01/19 celecoxib 200 mg capsule 200 mg PO DAILY 04/11/24 chlorthalidone 25 mg tablet 25 mg PO DAILY 04/11/24 cyanocobalamin (vitamin B-12) 1,000 mcg tablet (Vitamin B-12) 1,000 mcg PO DAILY 04/11/24 empagliflozin 25 mg tablet (Jardiance) 25 mg PO DAILY 04/11/24 hydroxyzine HCl 25 mg tablet 25 mg PO Q6H PRN anxiety 04/11/24 insulin glargine 100 unit/mL (3 mL) subcutaneous pen 32 unit SQ DAILY blood sugar 04/11/24 levothyroxine 50 mcg tablet 50 mcg PO DAILY 04/11/24 lisinopril 40 mg tablet 40 mg PO DAILY 04/11/24 multivitamin-ferrous fumarate-folic acid 18 mg-400 mcg tablet ([facility] Complete Women[facility]) 1 tab PO DAILY 04/11/24 omeprazole 20 mg capsule,delayed release 40 mg PO DAILY 04/11/24 pioglitazone 15 mg tablet 30 mg PO DAILY 04/11/24 sertraline 50 mg tablet (Zoloft) 50 mg PO DAILY 04/11/24 acetaminophen 500 mg tablet 1,000 mg (2 x 500 mg) PO Q8 #180 tabs 08/15/24 aspirin 81 mg chewable tablet 81 mg PO BIDCM 2 weeks #28 tabs 08/15/24 oxycodone 5 mg tablet 5 mg PO .q4-6 hrs prn PRN pain 4-10 7 days #20 tabs 08/15/24 sennosides 8.6 mg-docusate sodium 50 mg tablet (Stimulant Laxative Plus) 2 tab PO DAILY PRN PRN Constipation #14 tabs 08/15/24 Hospital Course Operations arthroscopy, shoulder Summary of Care Provided Hospital Course: Patient is a 59-year-old female post op day 7 status post left shoulder arthroscopy with rotator cuff repair, subacromial decompression biceps tenotomy, debridement of capsule and labrum and distal clavicle excision on 08/11/[address] Echeverria. no acute changes since yesterday. pain under control . States taking tylenol and oxycodone and ice help to relieve pain. only post op compliant was constipation for which she had a BM on Thursday and continued to feel better. this has resolved. ok to continue therapy to encourage mobility. patient to continue sling use at all times nonweightbearing to left upper extremity. Afebrile, no chest pain, shortness of breath, negative calf pain/ erythema, and no other signs of DVT. Patient has been medically stable throughout postop period. Physical Exam Narrative patient afebrile satting well on RA sling in place to left upper extremity Intact radial pulses Sensation intact to left upper extremity Intact to radial, median, ulnar nerve distribution Weight / BMI Weight Weight: 80 kg Body Mass Index (BMI) 33.3 ABG / Lab / Microbiology Data 08/13/24 05:35 08/13/24 05:35 Laboratory: Laboratory Results - last 24 hr 08/17/24 11:32: POC Glucose 188 H 08/17/24 16:23: POC Glucose 170 H 08/17/24 22:00: POC Glucose 212 H 08/18/24 06:32: POC Glucose 88 D/C Instructions Discharge Diet: No restrictions (diabetic diet ) Weight Bearing Status: No weight bearing (to left upper extremity) Call your doctor if your incision/area has: Continuous Slow Oozing, Sudden Increased Bleeding, Increased Pain/ Swelling, Increased Redness, Foul Smelling Discharge and Swelling at the incision site Call your doctor if you observe: Fever of 101 or Higher, Inability to have a bowel movement, Shortness of breath, Dizziness, Chest pain, Calf discomfort and Uncontrolled pain Cleanse incision/area with: Soap & Water and Keep Dressing Clean & Dry When: In 2 weeks as previously scheduled post orthopedics. Meaningful Use Info Meaningful Use Meaningful Use Diagnoses (Choose all that apply): None applicable Ischemic Stroke Statin Dosing Therapy Reference: STATIN DOSE THERAPY REFERENCE: * Patients > 75 years receive moderate or high dose statin therapy. * Patients 75 years or YOUNGER should receive HIGH intensity statin dose unless contraindicated. You will be required to document reason for non-treatment if statin daily dose does not meet guidelines. HIGH DOSE STATIN THERAPY DAILY Atorvastatin > than or = to 40 mg Rosuvastatin > than or = to 20 mg Amlodipine + Atorvastatin > than or = to 2.5/40 mg Ezetimibe + Simvastatin 10/80 mg Simvastatin 80mg Discharge Plan Admission Admit Date/Time: 08/11/24 14:08 Attending Provider: Hi Echeverria Primary Care Provider: Ranjeet Shine Consulting Providers: Ferdinand Martinez; Harshil Cotton; Gely Teixeira; Ata Foreman; Ambreen Gómez; Roberto Nogueira; Roberto Ortiz; Jorge Alberto Khanna; Shania Mcdonald; Juan Pablo Giron; Davida Lr; Hunter Solomon; Joana Marie; Hi Keller; George Contreras; Scott Goetz; Armida Funes; Lowell Abraham Discharge Orders/Prescriptions Prescriptions: New acetaminophen 500 mg Tablet 1,000 mg PO Q8 Qty: 180 0RF aspirin 81 mg Tablet,Chewable 81 mg PO BIDCM 14 Days Qty: 28 0RF sennosides-docusate sodium [Stimulant Laxative Plus] 8.6-50 mg Tablet 2 tab PO DAILY PRN PRN (Reason: Constipation) Qty: 14 0RF oxycodone 5 mg Tablet 5 mg PO .q4-6 hrs prn PRN (Reason: pain 4-10) 7 Days Qty: 20 0RF Continued cholecalciferol (vitamin D3) 2,000 unit capsule 2,000 unit PO DAILY atorvastatin 20 MG tablet 20 mg PO QHS atenolol 100 MG tablet 100 mg PO DAILY estradiol 1 MG tablet 1 mg PO DAILY metformin 1,000 MG tablet 1,000 mg PO BIDCM duloxetine 60 MG capsule 60 mg PO DAILY sitagliptin phosphate 100 MG tablet 100 mg PO DAILY celecoxib 200 mg capsule 200 mg PO DAILY ABC Complete Women's 18-400 mg-mcg tablet 1 tab PO DAILY chlorthalidone 25 mg tablet 25 mg PO DAILY cyanocobalamin (vitamin B-12) [Vitamin B-12] 1,000 mcg tablet 1,000 mcg PO DAILY Jardiance 25 mg tablet 25 mg PO DAILY hydroxyzine HCl 25 mg tablet 25 mg PO Q6H PRN (Reason: anxiety) levothyroxine 50 mcg tablet 50 mcg PO DAILY omeprazole 20 mg capsule,delayed release(DR/EC) 40 mg PO DAILY lisinopril 40 mg tablet 40 mg PO DAILY pioglitazone 15 mg tablet 30 mg PO DAILY sertraline [Zoloft] 50 mg tablet 50 mg PO DAILY insulin glargine 100 UNITS/ML insulin pen 32 unit SQ DAILY Rx Instructions: takenin the morning Held aspirin 81 MG tablet,chewable 81 mg PO DAILY Hold Instructions: Resume on 08/25/24. Referrals / Follow Up: Ranjeet Shine MD [Primary Care Provider] -
--- NOTE | 2024-08-18 12:25 | CASEMGMT ---
Social Work- SW notified Carter of d/c completion. 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 Bedside nurse advised. LEEANN Chairez
[2024-08-18 16:24] LABS: Bedside Glucose 416 mg/dL (74-106)
== END 2024-08-18 14:21 | disposition home or self-care (01) ==
LOC: SDC 16:55 → MS3 16:55
PROVIDERS: Anesthesiology; Internal Medicine; Admitting Provider Student in an Organized Health Care Education/Training Program; PCP Family Medicine; Referring Provider Student in an Organized Health Care Education/Training Program; Visit Provider Student in an Organized Health Care Education/Training Program
PROC: (CPT 29827; principal; 2024-08-11 12:50)
DX: M75.122 Complete rotator cuff tear or rupture of left shoulder, not specified as traumatic (principal); E11.40 Type 2 diabetes mellitus with diabetic neuropathy, unspecified; Z79.4 Long term (current) use of insulin; M19.012 Primary osteoarthritis, left shoulder; S43.432A Superior glenoid labrum lesion of left shoulder, initial encounter; M65.912 Unspecified synovitis and tenosynovitis, left shoulder; Z79.84 Long term (current) use of oral hypoglycemic drugs; M75.42 Impingement syndrome of left shoulder; S46.212A Strain of muscle, fascia and tendon of other parts of biceps, left arm, initial encounter; E78.00 Pure hypercholesterolemia, unspecified; I10 Essential (primary) hypertension; Z79.890 Hormone replacement therapy; G47.30 Sleep apnea, unspecified; Z79.82 Long term (current) use of aspirin; F70 Mild intellectual disabilities; E66.9 Obesity, unspecified; Z68.33 Body mass index [BMI] 33.0-33.9, adult; W19.XXXA Unspecified fall, initial encounter; K21.9 Gastro-esophageal reflux disease without esophagitis; F09 Unspecified mental disorder due to known physiological condition; Z86.2 Personal history of diseases of the blood and blood-forming organs and certain disorders involving the immune mechanism
CPT/HCPCS: 29826; 29827; 29824; 29807; 01630; 29828; 36415; 80048; 80076; 82962; 83036; 84439; 84443; 85025; 85610; 85730; 94640; 94668; 96365; 96366; 97110; 97116; 97162; 97166; 97530; 97535; 99221; C1713; J7120; A4216; G0378; J2405

== ENCOUNTER 2025-10-07 21:34 | Emergency (ER) | payer MEDICARE, MEDICAID, SELFPAY ==
[2025-10-07 21:36] VITALS: BP 131/64; PULSE 79; RESP 18; TEMP 36.4; O2SAT 100; BMI 33.5
--- NOTE | 2025-10-07 21:46 | RAD_ITS ---
PROCEDURE: KNEE 4 OR MORE VIEWS 10/07/2025 REASON FOR EXAM: FALL AND INJURED RIGHT KNEE TECHNIQUE: Procedure Code: RADKN Modality: DX Procedure: KNEE 4 OR MORE VIEWS Laterality: Right COMPARISON: December 2022. FINDINGS: Bones: Negative for fracture. Distal femur negative. Distal tibia and fibula negative. Joints: Otherwise,Negative for joint space narrowing. Effusion: Negative for joint effusion. Soft tissue: Negative for soft tissue swelling. Other: Remainder of the exam negative. RAD/Knee 4 or More Views IMPRESSION: Negative right knee. Reading Location: [id number]
--- NOTE | 2025-10-07 21:47 | ED.VIS.FALL ---
HPI HPI - Fall History of Present Illness Chief Complaint: Fall Informant: patient Occured/Mechanism Occurred: Today Mechanism/Context: Yes same level fall and Yes slip Usually ambulates: Without assistance Pain/Injury Pain Location: lower extremity Quality of Pain: Dull Current Severity: Mild Maximum Severity: Mild Associated Symptoms Associated Symptoms: Negative for Parasthesias, Weakness, Loss of function, Inability to ambulate, Loss of consciousness or Amnesia Narrative Narrative: 60-year-old female history of diabetes and hypertension. Said she slipped at home fell hit her left elbow and her right knee. Did not hit her head. No LOC. Said prior to the fall she was feeling fine. Denies any recent illness. Denies recent hospitalization. Was able to get up for self. Prior similar symptoms: No Recent Illness/Hospitalization: No PFSH PFSH Medical History Cognitive impairment Easy bruising Wears hearing aid Wears partial dentures Wears glasses Post-menopausal Depression Anxiety Thyroid disease Insulin dependent diabetes mellitus High cholesterol Dietary restriction Gastric reflux Non-smoker CPAP (continuous positive airway pressure) dependence Shortness of breath on exertion History of echocardiogram History of stress test Neuropathy High triglycerides Hypertension Diabetes Arthritis Home Medications ?Medication ?Instructions ?Recorded ?Last Taken ?Type atenolol 100 mg tablet 100 mg PO DAILY blood pressure 02/24/18 08/11/24 05:00 History atorvastatin 20 mg tablet 20 mg PO QHS cholesterol 02/24/18 08/10/24 History duloxetine 60 mg capsule,delayed 60 mg PO DAILY mental health 02/24/18 08/11/24 05:00 History release estradiol 1 mg tablet 1 mg PO DAILY supplement 02/24/18 08/10/24 History metformin 1,000 mg tablet 1,000 mg PO BIDCM diabetic 02/24/18 08/10/24 History sitagliptin phosphate 100 mg tablet 100 mg PO DAILY blood sugar 02/24/18 08/10/24 History aspirin 81 mg chewable tablet 81 mg PO DAILY heart health 02/17/19 08/05/24 History Held on 08/15/24. Instructions: Resume on 08/25/24. cholecalciferol (vitamin D3) 50 2,000 unit PO DAILY vitamin 04/01/19 08/10/24 History mcg (2,000 unit) capsule celecoxib 200 mg capsule 200 mg PO DAILY 04/11/24 08/05/24 History chlorthalidone 25 mg tablet 25 mg PO DAILY 04/11/24 08/10/24 History cyanocobalamin (vitamin B-12) 1,000 mcg PO DAILY 04/11/24 08/05/24 History 1,000 mcg tablet (Vitamin B-12) empagliflozin 25 mg tablet 25 mg PO DAILY 04/11/24 08/10/24 History (Jardiance) hydroxyzine HCl 25 mg tablet 25 mg PO Q6H PRN anxiety 04/11/24 08/10/24 History insulin glargine 100 unit/mL (3 32 unit SQ DAILY blood sugar 04/11/24 08/10/24 History mL) subcutaneous pen levothyroxine 50 mcg tablet 50 mcg PO DAILY 04/11/24 08/11/24 05:00 History lisinopril 40 mg tablet 40 mg PO DAILY 04/11/24 08/11/24 05:00 History multivitamin-ferrous 1 tab PO DAILY 04/11/24 08/05/24 History fumarate-folic acid 18 mg-400 mcg tablet ([facility] Complete Women's) omeprazole 20 mg capsule,delayed 40 mg PO DAILY 04/11/24 08/11/24 05:00 History release pioglitazone 15 mg tablet 30 mg PO DAILY 04/11/24 08/10/24 History sertraline 50 mg tablet (Zoloft) 50 mg PO DAILY 04/11/24 08/10/24 History acetaminophen 500 mg tablet 1,000 mg (2 x 500 mg) PO Q8 #180 08/15/24 Unknown Rx tabs aspirin 81 mg chewable tablet 81 mg PO BIDCM 2 weeks #28 tabs 08/15/24 Unknown Rx oxycodone 5 mg tablet 5 mg PO .q4-6 hrs prn PRN pain 08/15/24 Unknown Rx 4-10 7 days #20 tabs sennosides 8.6 mg-docusate sodium 2 tab PO DAILY PRN PRN 08/15/24 Unknown Rx 50 mg tablet (Stimulant Laxative Constipation #14 tabs Plus) Allergy/AdvReac Type Severity Reaction Status Date / Time Bleach (Sodium Hypochlorite) Allergy Severe HIVES Verified 10/07/25 21:39 amoxicillin Allergy Hives Verified 10/07/25 21:39 Penicillins Allergy Rash Verified 10/07/25 21:39 Sulfa (Sulfonamide AdvReac Nausea/Vom/ Verified 10/07/25 21:39 Antibiotics) Diarrhea Family History Other ANGINA Anxiety Arthritis Blood clotting disorder Bowel disease Breast cancer CVA (cerebral vascular accident) Cancer Colon cancer Depression Diabetes Heart disease Hyperlipidemia Hypertension Melanoma Mental disorder Myocardial infarction Osteoporosis Ovarian cancer Parkinsons disease Thyroid disorder Surgical History S/P rotator cuff repair History of cataract surgery H/O: hysterectomy Social History Smoking Status: Never smoker substance use type: does not use what type of physical activity do you participate in: walking ROS ROS ED ROS Narrative Denies recent illness. Denies vomiting or fever. Had diarrhea recently resolved. Constitutional Constitutional ED: Denies chills or fever(s) Eyes Eyes: Denies blurry vision ENT ENT ED: Denies ear pain Cardiovascular Cardiovascular: Denies chest pain Respiratory/Chest Respiratory/Chest: Denies cough or dyspnea Gastrointestinal Gastrointestinal: Reports diarrhea and other Details: Diarrhea resolved several days ago. ; Denies abdominal pain, melena, nausea or vomiting Musculoskeletal Musculoskeletal: Denies back pain Integumentary Denies abscess Neurologic Neurologic: Denies headache(s) Psychiatric Psychiatric: Denies anxiety Endocrine Endocrinology: Denies polydipsia Hematologic/Lymphatic Hematologic/Lymphatic: Denies easy bleeding Allergic/Immunologic Allergic/Immunologic ED: Denies mouth swelling EXAM Physical Exam Narrative Exam Narrative: Well-appearing 60-year-old female sitting upright in bed. Vital signs are stable afebrile. Pulse ox 100% on room air no signs hypoxia. H EENT exam pupils round react to light. No signs of trauma to her face or scalp. Nontender. No hematoma. No laceration. Moist mucous membranes. C-spine and neck nontender. Back and spine nontender. No bruising. Lungs clear to auscultation bilaterally. Heart regular rhythm rate about 80 no murmur. Chest wall ribs nontender. Abdomen soft nontender. Pelvic girdle intact. Nontender. Hips no shortening or rotation. Normal county auditor strength. Normal flexion extension of both upper extremities. She has a minor abrasion to her left elbow but she has full flexion extension of the elbow. Supination and pronation without difficulty. Lower extremity she has mild tenderness to the right knee there is a contusion. Both hips the left knee both ankles and feet are nontender. Normal dorsi plantarflexion. She can flex and extend at both knees and hips. She can lift either leg off the bed. Neurologically she is awake and alert. Answering questions following commands. Const Vital Signs: 10/07/25 21:36 10/07/25 21:36 Temperature 97.6 F L Temperature Source Oral Pulse Rate 79 Respiratory Rate 18 Respiratory Effort Normal Respiratory Depth Normal Respiratory Pattern Normal Blood Pressure 131/64 H Blood Pressure Mean 86 Pulse Ox 100 Oxygen Delivery Method Room Air Room Air MDM MDM MDM Narrative Medical decision making narrative: Diabetic female slipped and fell at home has a minor abrasion to her left elbow does not need x-rays she is comfortable with that. Right knee has a contusion that will be x-rayed. Will check her blood sugar. She was offered but did not want anything for pain. Repeat exam patient is doing well arounds 10:35 PM nurses states she ambulated well without difficulty. I went over the patient's x-ray she feels comfortable being discharged home. We may need to help her get a ride. History & Record Review Discussion w/independent historian: Patient Additional record(s) reviewed:: Prior outpatient record, Prior ED visit and Prior labs Lab Data Attestation: I reviewed the patient's lab results. Lab results narrative: BGT was 215. Labs: Laboratory Results - last 24 hr 10/07/25 22:10 POC Glucose 215 H Radiography Diagnostic Testing: Clinical Impression(s) from Imaging Studies Knee X-Ray 10/07/25 21:46 IMPRESSION: Negative right knee. Reading Location: [id number] Right knee x-ray, 4 views, interpreted by myself shows no fracture or dislocation. Chronic changes. Also read by the radiologist who agrees. Discharge Plan Triage Chief Complaint: Fall ED Provider: Randy Lord Dx/Rx/DC Orders Prescriptions: No Action cholecalciferol (vitamin D3) 2,000 unit capsule 2,000 unit PO DAILY atorvastatin 20 MG tablet 20 mg PO QHS atenolol 100 MG tablet 100 mg PO DAILY estradiol 1 MG tablet 1 mg PO DAILY metformin 1,000 MG tablet 1,000 mg PO BIDCM duloxetine 60 MG capsule 60 mg PO DAILY sitagliptin phosphate 100 MG tablet 100 mg PO DAILY aspirin 81 MG tablet,chewable 81 mg PO DAILY celecoxib 200 mg capsule 200 mg PO DAILY ABC Complete Women's 18-400 mg-mcg tablet 1 tab PO DAILY chlorthalidone 25 mg tablet 25 mg PO DAILY cyanocobalamin (vitamin B-12) [Vitamin B-12] 1,000 mcg tablet 1,000 mcg PO DAILY Jardiance 25 mg tablet 25 mg PO DAILY hydroxyzine HCl 25 mg tablet 25 mg PO Q6H PRN (Reason: anxiety) levothyroxine 50 mcg tablet 50 mcg PO DAILY omeprazole 20 mg capsule,delayed release(DR/EC) 40 mg PO DAILY lisinopril 40 mg tablet 40 mg PO DAILY pioglitazone 15 mg tablet 30 mg PO DAILY sertraline [Zoloft] 50 mg tablet 50 mg PO DAILY insulin glargine 100 UNITS/ML insulin pen 32 unit SQ DAILY Rx Instructions: takenin the morning acetaminophen 500 mg Tablet 1,000 mg PO Q8 Qty: 180 0RF aspirin 81 mg Tablet,Chewable 81 mg PO BIDCM 14 Days Qty: 28 0RF sennosides-docusate sodium [Stimulant Laxative Plus] 8.6-50 mg Tablet 2 tab PO DAILY PRN PRN (Reason: Constipation) Qty: 14 0RF oxycodone 5 mg Tablet 5 mg PO .q4-6 hrs prn PRN (Reason: pain 4-10) 7 Days Qty: 20 0RF Primary Care Provider: Ranjeet Shine Referrals: Ranjeet Shine MD [Primary Care Provider, Medical] Print Language: Frisian
--- OUTSIDE RECORDS SUMMARY | 2025-10-07 22:00 | XMS RPT_ITS | CCD ---
Author Organization [facility] Care Team Providers Care [facility] Programmer Name Role Phone Gabbie Noriega Unavailable Gabbie Noriega Unavailable Jax Wahl Unavailable Unavailable Gabbie Noriega Unavailable Ranjeet Goodwin MD Primary Care Provider [facility] Unavailable Ranjeet Goodwin MD Primary Care Provider [facility] Unavailable Ranjeet Goodwin MD Primary Care Provider [facility] Unavailable Ranjeet Goodwin MD Primary Care Provider [facility] Unavailable [facility] Unavailable Ranjeet Goodwin MD Primary Care Provider [facility] Unavailable Hi Echeverria Referring Unavailable Hi Echeverria Attending Unavailable Ranjeet Goodwin Primary Care Unavailable Ferdinand Martinez Consulting Unavailable Hi Echeverria Admitting Unavailable Harshil Cotton Consulting Unavailable Paintsil, [place] Consulting Unavailable Ahsan Achintya Consulting Unavailable Ambreen Gómez Consulting Unavailable Roberto Nogueira Consulting Unavailable Roberto Ortiz Consulting Unavailable Jorge Alberto Khanna Consulting Unavailable Oleghe, Ifijen Consulting Unavailable Juan Pablo Giron Consulting Unavailable Davida Lr Consulting Unavailable Juanito, Angelo Consulting Unavailable Frank, Joana Kylah Consulting Unavailable Hi Keller Consulting Unavailable George Contreras Consulting Unavailable Scott Goetz Consulting Unavailable Armida Funes Consulting Unavailable Lowell Abraham Consulting Unavailable Hi Echeverria Referring Unavailable Hi Echeverria Attending Unavailable Denia, Ranjeet Primary Care Unavailable KristieleTiffanies Referring Unavailable Denia, Ranjeet Primary Care Unavailable Desmond Grady Attending Unavailable George Contreras Attending Unavailable Hi Echeverria Referring Unavailable Denia, Ranjeet Primary Care Unavailable Ferdinand Martinez Consulting Unavailable Hi Echeverria Admitting Unavailable Harshil Cotton Consulting Unavailable Puneet [place] Consulting Unavailable Ata Foreman Consulting Unavailable Ambreen Gómez Consulting Unavailable Roberto Nogueira Consulting Unavailable Roberto Ortiz Consulting Unavailable Jorge Alberto Khanna Consulting Unavailable Ankita Mcdonaldjen Consulting Unavailable Juan Pablo Giron Consulting Unavailable Davida Lr Consulting Unavailable Angelo Solomon Consulting Unavailable Cristyam, Joana Kylah Consulting Unavailable Hi Keller Consulting Unavailable Ben, George Consulting Unavailable Sofy, Scott Consulting Unavailable Armida Funes Consulting Unavailable Lowell Abraham Consulting Unavailable Tiffanie Echeverrias Consulting Unavailable Jorge Alberto Khanna Attending Unavailable Joana Mariea Attending Unavailable Davidagen WEIGHT SHIFTER.ZIGGY, Odalys Unavailable Suppan WEIGHT SHIFTER.METAL PICKLING EQUIPMENT OPERATOR, Adelaide A Unavailable [phone] Suppan WEIGHT SHIFTER.METAL PICKLING EQUIPMENT OPERATOR, Adelaide A Unavailable RANJEET GOODWIN Primary Care Unavailable ILDA EPSTEIN Attending Unavailable DENIA, RANJEET J Primary Care Unavailable ILDA EPSTEIN P Referring Unavailable DENIA, RANJEET J Primary Care Unavailable DENIA, RANJEET J Attending Unavailable DENIA, RANJEET J Primary Care Unavailable DENIA, RANJEET J Referring Unavailable DENIA, RANJEET J Primary Care Unavailable DENIA, RANJEET J Primary Care Unavailable DENIA, RANJEET J Primary Care Unavailable SELF Referring Unavailable CHYNA PÉREZ Attending Unavailable DENIA, RANJEET Kline Primary Care Unavailable DENIA, RANJEET J Primary Care Unavailable DENIA, RANJEET J Primary Care Unavailable DENIA, RANJEET J Referring Unavailable RANJEET GOODWIN Attending Unavailable RANJEET GOODWIN Primary Care Unavailable SELF Referring Unavailable RANJEET GOODWIN Primary Care Unavailable RANJEET GOODWIN Referring Unavailable RANJEET GOODWIN Primary Care Unavailable RANJEET GOODWIN Referring Unavailable Allergies Allergy Classification Reported Allergen(s) Allergy Type Date of Onset Reaction(s) Facility Hypochlorite (2 sources) Hypochlorite Drug Allergy 9 [facility] Penicillins (antibiotic) (4 sources) Amoxicillin Drug Allergy 8 Other: See Comments [facility] Sulfonamides (antibiotic) (2 sources) Sulfonamides (Antibiotic) Drug Allergy 9 [facility] (20 sources) Amoxicillin; Translations: [AMOXICILLIN] Drug Allergy 8 Other: See Comments [facility] Work Phone: (20 sources) Hypochlorite; Translations: [BLEACH (SODIUM HYPOCHLORITE)] Drug Allergy 9 [facility] (16 sources) Penicillins; Translations: [PENICILLINS] Drug Allergy 8 Other: See Comments [facility] Work Phone: (20 sources) Sulfonamides (Antibiotic); Translations: [SULFA (SULFONAMIDE ANTIBIOTICS)] Drug Allergy 9 [facility] (20 sources) Penicillins Drug Allergy 8 Other: See Comments [facility] Work Phone: (2 sources) Penicillins Allergy to substance 1 [facility] (2 sources) Sulfonamides (Antibiotic) Propensity to adverse reactions 1 Nausea/Vom/Diar kelley [facility] (1 source) Amoxicillin Drug Allergy 4 [facility] (1 source) Penicillins Drug allergy (disorder) 4 [facility] (1 source) Sulfonamides (Antibiotic) Drug allergy (disorder) 4 [facility] (1 source) Bleach (Sodium Hypochlorite) Drug allergy (disorder) 4 [facility] (12 sources) Penicillins Drug Allergy 8 Other: See Comments [facility] Medications Current Medications Medication Drug Class(es) Dates Sig (Normalized) Sig (Original) aspirin 81 mg delayed release oral tablet (20 sources) Platelet Aggregation Inhibitor, Nonsteroidal Anti-inflammatory Drug Start: 11-01-2021 End: 07-11-2025 take 1 tablet by mouth once daily aspirin, enteric coated (ASPIRIN, ENTERIC COATED) 81 mg EC tablet Take 1 tablet by mouth once daily. (self-started) 90 tablet 3 07/11/2025 Active Start: 12-10-2020 End: 05-20-2021 take 1 tablet by mouth once daily aspirin, enteric coated (ASPIRIN, ENTERIC COATED) 81 mg EC tablet Take 1 tablet by mouth once daily. (self-started) 28 tablet 5 12/10/2020 05/20/2021 Discontinued Start: 02-17-2019 take 81 mg by mouth once daily Aspirin Active 81 MG PO DAILY February 17, 2019 12:00am Comment on above: Take 1 tablet by lydia th once daily. (self-started) atenolol 100 mg oral tablet (20 sources) beta-Adrenergic Belkys Start: 02-24-2018 End: 05-16-2025 take 1 tablet by mouth once daily atenolol (TENORMIN) 100 mg tablet Indications: Essential hypertension, benign Take 1 tablet by mouth once daily. 90 tablet 1 05/16/2025 Active Start: 01-26-2017 ATENOLOL 100 M G TABS one daily ATENOLOL [id number] Presley Farias Comment on above: Take 1 tablet by lydia th once daily. atorvastatin 20 mg oral tablet (20 sources) HMG-CoA Reductase Inhibitor Start: 2017 End: 2024 take 1 tablet by mouth once daily at bedtime for hyperlipidemia atorvastatin (LIPITOR) 20 mg tablet Indications: Hyperlipidemia, unspecified hyperlipidemia type Take 1 tablet by mouth daily at bedtime. For cholesterol. 90 tablet 1 05/16/2025 Active Comment on above: Take 1 tablet by lydia th daily at bedtime. For cholesterol. azithromycin 250 mg oral tablet (1 source) Macrolide Antimicrobial Start: 2024 End: 2024 azithromycin (ZITHROMAX Z-NEL) 250 mg tablet Take 2 tablets day one, then, 1 tablet daily until gone. 6 tablet 11/03/2024 11/08/2024 Active Blood-Glucose Meter monitoring kit (1 source) Start: 2021 End: 2021 Blood-Glucose Meter monitoring kit Indications: Type 2 diabetes mellitus with diabetic neuropathy, without long-term current use of insulin (HCC) Glucose Meter of Choice - Kit - Dx: Type 2 DM - Controlled E11.9 1 Each 0 10/10/2022 10/11/2022 Active Comment on above: Glucose Meter of Cho ice - Kit - Dx: Type 2 DM - Controlled E11.9 cephalexin 500 mg oral capsule (1 source) Cephalosporin Antibacterial Start: 2024 End: 2024 take 1 capsule by mouth twice daily cephALEXin (KEFLEX) 500 mg capsule Take 1 capsule by mouth two times a day for 5 days. 10 capsule 12/29/2024 01/03/2025 Active chlorthalidone 25 mg oral tablet (20 sources) Thiazide-like Diuretic Start: 2023 End: 2024 take 1 tablet by mouth once daily chlorthalidone (HYGROTON) 25 mg tablet Indications: Essential hypertension, benign Take 1 tablet by mouth once daily. 30 tablet 11 01/25/2025 Active cholecalciferol 0.05 mg oral capsule (20 sources) Vitamin D Start: 2018 take 1 capsule by mouth once daily Cholecalciferol, Vitamin D3, (VITAMIN D-3) 50 mcg (2,000 unit) cap Take 1 capsule by mouth once daily. 90 capsule 02/02/2020 Active Comment on above: Take 1 capsule by [facility] once daily. COMPOUNDED PRESCRIPTION (20 sources) Start: 2017 COMPOUNDED PRESCRIPTION Indications: Uncontrolled type 2 diabetes mellitus with hypoglycemia, unspecified hypoglycemia coma status (HCC) , Edema, unspecified type , Type 2 diabetes mellitus with peripheral neuropathy (HCC) Diabetic shoes 1 Each 08/17/2018 Active Start: 08-17-2018 COMPOUNDED PRE SCRIPTION Indications: Uncontrolled type 2 diabetes mellitus with hypoglycemia, unspecified hypoglycemia coma status (HCC) , Edema, unspecified type , Type 2 diabetes mellitus with peripheral neuropathy (HCC) Diabetic shoes 1 Each 0 08/17/2018 Active Comment on above: Diabetic shoes CPAP/BIPAP/OTHER (20 sources) Start: 11-28-2024 End: 04-14-2052 CPAP/BIPAP/OTHER Indications : HIMANSHU on CPAP autoCPAP 5-12 cmH2O DME [employer] 1 Each 11/28/2024 04/14/2052 Active Start: 06-06-2024 End: 11-28-2024 CPAP/BIPAP/OTHER APAP 7-15 c mH2O DME [employer] 1 Each 06/06/2024 11/28/2024 Discontinued Start: 06-06-2024 End: 10-22-2051 CPAP/BIPAP/OTHER APAP 7-15 c mH2O DME [employer] 1 Each 06/06/2024 10/22/2051 Active Start: 06-06-2024 End: 10-22-2051 CPAP/BIPAP/OTHER APAP 7-15 c mH2O DME [employer] 1 Each 0 06/06/2024 10/22/2051 Active Start: 02-29-2024 End: 06-06-2024 CPAP/BIPAP/OTHER autoCPAP 10 -20 cmH2O DME [employer] 1 Each 0 02/29/2024 06/06/2024 Discontinued Start: 02-29-2024 End: 07-16-2051 CPAP/BIPAP/OTHER autoCPAP 10 -20 cmH2O DME [employer] 1 Each 0 02/29/2024 07/16/2051 Active cyclobenzaprine hydrochloride 5 mg oral tablet (20 sources) Muscle Relaxant Start: 04-20-2025 take 1 tablet by mouth every twenty-four hours as needed cyclobenzaprine (FLEXERIL) 5 mg tablet Take 1 tablet by mouth at bedtime as needed. 5 tablet 04/20/2025 Active Start: 12-19-2022 End: 04-12-2024 take 1 tablet by mouth every twenty-four hours as needed cyclobenzaprine (FLEXERIL) 5 mg tablet Take 1 tablet by mouth at bedtime as needed. 30 tablet 5 12/19/2022 04/12/2024 Discontinued (Other) Start: 08-12-2022 End: 08-26-2022 take 1 tablet by mouth at bedtime as needed for muscle spasms cyclobenzaprine (FLEXERIL) 10 mg tablet Indications: Acute pain of left shoulder Take 1 tablet by mouth at bedtime as needed for muscle spasm for up to 14 days. 14 tablet 0 08/12/2022 08/26/2022 Active Comment on above: Take 1 tablet by lydia th at bedtime as needed for muscle spasm for up to 14 days. Take 1 tablet by lydia th at bedtime as needed. DULoxetine 60 mg delayed release oral capsule (20 sources) Serotonin and Norepinephrine Reuptake Inhibitor Start: 4 End: 5 take 1 capsule by mouth once daily DULoxetine DR (CYMBALTA) 60 mg capsule Indications: Depression, unspecified depression type Take 1 capsule by mouth once daily. 90 capsule 1 06/09/2025 Active Start: 08-07-2023 take 1 capsule by [facility] once daily DULoxetine (CYMBALTA) 60 mg capsule Indications: Depression, unspecified depression type Take 1 capsule by mouth once daily. 90 capsule 1 08/07/2023 Active Start: 02-24-2018 End: 02-20-2023 take 1 capsule by mouth once daily DULoxetine (CYMBALTA) 60 mg capsule Indications: Depression, unspecified depression type Take 1 capsule by mouth once daily. 90 capsule 1 02/25/2022 09/05/2022 Discontinued Start: 01-26-2017 CYMBALTA 60 MG CPE DULOXETINE HCL [id number] Presley Farias Comment on above: Take 1 capsule by [facility] once daily. empagliflozin 25 mg oral tablet (20 sources) Sodium-Glucose Cotransporter 2 Inhibitor Start: 03-27-20 End: 05-16-20 take 1 tablet by mouth once daily empagliflozin (JARDIANCE) 25 mg tablet Indications: Type 2 diabetes mellitus with diabetic neuropathy, without long-term current use of insulin (HCC) Take 1 tablet by mouth once daily. 90 tablet 1 05/16/2025 Active Start: 02-24-2018 take 10 mg by mouth once daily Empagliflozin Active 10 MG PO DAILY February 24, 2018 12:00am Comment on above: Take 1 tablet by lydia th once daily. estradiol 1 mg oral tablet (20 sources) Estrogen Start: 018 End: 025 take 1 tablet by mouth once daily estradiol (ESTRACE) 1 mg tablet Take 1 tablet by mouth once daily. 90 tablet 1 05/16/2025 Active Comment on above: Take 1 tablet by lydia th once daily. hydrOXYzine hydrochloride 25 mg oral tablet (20 sources) Antihistamine Start: 07-15-2 021 take 1 tablet by mouth every six hours as needed for anxiety hydrOXYzine HCl (ATARAX) 25 mg tablet Indications: SUZANNE (generalized anxiety disorder) Take 1 tablet by mouth every 6 hours as needed for anxiety. 360 tablet 1 05/09/2021 Active Comment on above: Take 1 tablet by lydia th every 6 hours as needed for anxiety. ibuprofen 200 mg oral capsule (2 sources) Nonsteroidal Anti-inflammatory Drug Start: take 200 mg by mouth every six hours Ibuprofen Active 200 MG PO EVERY 6 HOURS October 29, 2020 1:00am 3 ml insulin glargine 100 unt/ml pen injector (20 sources) Insulin Analog Start: End: inject 32 [IU] by subcutaneous injection once daily in the morning insulin glargine 100 unit/mL (3 mL) Inject 32 Units subcutaneously every morning. 5 each 03/02/2025 08/29/2025 Active Start: 07-04-2022 End: 10-17-2023 inject 30 [IU] by subcutaneous injection once daily in the morning insulin glargine 100 unit/mL (3 mL) Indications: Controlled type 2 diabetes mellitus without complication, with long-term current use of insulin (HCC) Inject 30 Units subcutaneously every morning. 5 Each 04/20/2023 10/17/2023 Active Start: 05-31-2020 End: 04-20-2023 insulin glargine (LANTUS SONAM OSTAR, BASAGLAR KWIKPEN) 100 unit/mL (3 mL) Indications: Controlled type 2 diabetes mellitus without complication, with long-term current use of insulin (HCC) Inject 30 Units subcutaneously every morning. 5 Each 07/04/2022 04/20/2023 Discontinued Start: 11-27-2018 End: 05-31-2020 inject 34 [IU] by subcutaneous injection once daily in the morning Insulin Glargine Discontinued 34 UNIT SQ DAILY November 27, 2018 1:00am May 31, 2020 11:33am takenin the morning Comment on above: Inject 30 Units subc utaneously every morning. Inject 32 Units subc utaneously every morning. levothyroxine sodium 0.05 mg oral tablet (20 sources) l-Thyroxine Start: take 1 tablet by mouth once daily for thyroid dysfunction levothyroxine (SYNTHROID) 50 mcg tablet Indications: Acquired hypothyroidism Take 1 tablet by mouth once daily. Take on empty stomach. For Thyroid. 30 tablet 5 03/17/2025 Active Start: 11-03-2023 End: 10-06-2024 take 1 tablet by mouth once daily for thyroid dysfunction levothyroxine (SYNTHROID) 50 mcg tablet Indications: Acquired hypothyroidism Take 1 tablet by mouth once daily. Take on empty stomach. For Thyroid. 30 tablet 5 10/06/2024 Active Start: 12-27-2021 End: 05-11-2023 take 1 tablet by mouth once daily for thyroid dysfunction levothyroxine (SYNTHROID) 50 mcg tablet Indications: Acquired hypothyroidism Take 1 tablet by mouth once daily. Take on empty stomach. For Thyroid. 30 tablet 5 06/13/2022 11/27/2022 Discontinued Start: 01-23-2021 End: 07-12-2021 take 1 tablet by mouth once daily for thyroid dysfunction levothyroxine (SYNTHROID) 50 mcg tablet Indications: Acquired hypothyroidism Take 1 tablet by mouth once daily. Take on empty stomach. For Thyroid. 30 tablet 5 01/23/2021 07/12/2021 Discontinued Start: 02-24-2018 take 50 ug by mouth once daily Levothyroxine Active 50 MCG PO DAILY February 24, 2018 12:00am Start: 01-26-2017 LEVO-T 125 MCG TABS one a day LEVOTHYROXINE SODIUM [id number] Presley Farias Start: 01-26-2017 LEVO-T 125 MCG TABS one a day LEVOTHYROXINE SODIUM [id number] Presley Farias Comment on above: Take 1 tablet by [facility] once daily. Take on empty stomach. For Thyroid. lisinopril 40 mg oral tablet (20 sources) Angiotensin Converting Enzyme Inhibitor Start: 11-24-2022 End: 06-09-2026 take 1 tablet by mouth once daily lisinopril (ZESTRIL) 40 mg tablet Indications: Essential hypertension, benign Take 1 tablet by mouth once daily. 90 tablet 3 06/09/2025 06/09/2026 Active Start: 02-24-2018 End: 11-24-2022 take 1 tablet by mouth once daily lisinopril (PRINIVIL) 20 mg tablet Indications: Essential hypertension, benign Take 1 tablet by mouth once daily. 30 tablet 5 04/18/2022 10/02/2022 Discontinued Start: 01-26-2017 LISINOPRIL 20 MG TABS one daily LISINOPRIL [id number] Presley Farias Comment on above: Take 1 tablet by lydia th once daily. 24 hr metFORMIN hydrochloride 500 mg extended release oral tablet (20 sources) Biguanide Start: End: take 2 tablets by mouth twice daily at mealtime metFORMIN ER (GLUCOPHAGE XR) 500 mg 24 hr tablet Indications: Type 2 diabetes mellitus with diabetic neuropathy, without long-term current use of insulin (HCC) Take 2 tablet by mouth twice daily with food. 360 tablet 1 05/16/2025 Active Start: 02-24-2018 take 1000 mg by mout h twice daily at mealtime Metformin Active 1000 MG PO TWICE DAILY WITH MEALS February 24, 2018 12:00am Start: 01-26-2017 take 4 tablets by mo uth once daily METFORMIN HCL ER (MOD) 500 MG [id number] 4 PO QD METFORMIN HCL [id number] Presley Farias Comment on above: Take 2 tablet by lydia th twice daily with food. multivitamin-ferrou s fumarate-folic acid (CENTRUM) (20 sources) Start: 07-11-2025 take 1 tablet by mouth once daily multivitamin-jaxon us fumarate-folic acid (CENTRUM) Take 1 tablet by mouth once daily. 90 tablet 3 07/11/2025 Active Start: 08-09-2024 End: 07-11-2025 take 1 tablet by mouth once daily multivitamin-ferrous fumarate-folic acid (CENTRUM) Take 1 tablet by mouth once daily. 90 tablet 3 08/09/2024 07/11/2025 Discontinued Start: 08-09-2024 take 1 tablet by lydia th once daily multivitamin-ferrous fumarate-folic acid (CENTRUM) Take 1 tablet by mouth once daily. 90 tablet 3 08/09/2024 Active Start: 09-09-2023 End: 08-09-2024 take 1 tablet by mouth once daily multivitamin-ferrous fumarate-folic acid (CENTRUM) Take 1 tablet by mouth once daily. 90 tablet 3 09/09/2023 08/09/2024 Discontinued Start: 09-09-2023 take 1 tablet by lydia th once daily multivitamin-ferrous fumarate-folic acid (CENTRUM) Take 1 tablet by mouth once daily. 90 tablet 3 09/09/2023 Active Start: 10-02-2022 End: 09-09-2023 take 1 tablet by mouth once daily multivitamin-ferrous fumarate-folic acid (CENTRUM) Take 1 tablet by mouth once daily. 90 tablet 3 10/02/2022 09/09/2023 Discontinued Start: 10-02-2022 take 1 tablet by lydia th once daily multivitamin-ferrous fumarate-folic acid (CENTRUM) Take 1 tablet by mouth once daily. 90 tablet 3 10/02/2022 Active Start: 11-01-2021 End: 10-02-2022 take 1 tablet by mouth once daily multivitamin-ferrous fumarate-folic acid (CENTRUM) Take 1 tablet by mouth once daily. 90 tablet 3 11/01/2021 10/02/2022 Discontinued Start: 11-01-2021 take 1 tablet by lydia th once daily multivitamin-ferrous fumarate-folic acid (CENTRUM) Take 1 tablet by mouth once daily. 90 tablet 3 11/01/2021 Active Start: 12-10-2020 End: 05-20-2021 take 1 tablet by mouth once daily multivitamin-ferrous fumarate-folic acid (CENTRUM) Take 1 tablet by mouth once daily. 28 tablet 5 12/10/2020 05/20/2021 Discontinued Comment on above: Take 1 tablet by lydia th once daily. mupirocin 0.02 mg/mg topical ointment (8 sources) RNA Synthetase Inhibitor Antibacterial Start: 04-12-2024 End: 04-19-2024 mupirocin (BACTROBAN) 2 % ointment Indications: Open wound of skin Apply to affected area three times a day for 7 days. (Right arm) 15 g 0 04/12/2024 04/19/2024 Active Start: 06-15-2023 End: 06-25-2023 mupirocin (BACTROBAN) 2 % cr eam Indications: Open wound of skin Apply 1 application to affected area three times daily for 10 days. Location: right hand 30 g 0 06/15/2023 06/25/2023 Active Start: 10-10-2022 End: 10-20-2022 mupirocin (BACTROBAN) 2 % cr eam Indications: Open wound of skin Apply 1 application to affected area three times daily for 10 days. Location: right hand 30 g 0 10/10/2022 10/20/2022 Active Start: 05-05-2022 End: 05-15-2022 mupirocin (BACTROBAN) 2 % cr eam Indications: Abrasion Apply 1 application to affected area three times daily for 10 days. Location: forearm 30 g 0 05/05/2022 05/15/2022 Active Comment on above: Apply 1 application to affected area three times daily for 10 days. Location: forearm Apply 1 application to affected area three times daily for 10 days. Location: right hand naproxen 500 mg oral tablet (2 sources) Nonsteroidal Anti-inflammatory Drug Start: 06-20-20 take 500 mg by mouth twice daily as needed Naproxen Active 500 MG PO TWICE DAILY NEEDED June 20, 2019 12:00am nitrofurantoin, macrocrystals 25 mg / nitrofurantoin, monohydrate 75 mg oral capsule (4 sources) Nitrofuran Antibacterial Start: 12-27-19 End: 01-03-20 take 1 capsule by mouth twice daily nitrofurantoin monohydrate and macrocrystal (MACROBID) 100 mg capsule Indications: Acute UTI Take 1 capsule by mouth two times a day for 7 days. 14 capsule 12/26/2024 01/02/2025 Active Start: 04-04-2019 End: 05-31-2020 take 100 mg by mouth every twelve hours Nitrofurantoin Monohyd/M-Cryst Discontinued 100 MG PO EVERY 12 HOURS April 04, 2019 12:00am May 31, 2020 11:37am nystatin [id number] unt/ml topical cream (20 sources) Polyene Antifungal Start: 12-07-2023 End: 04-12-2024 nystatin (MYCOSTATIN) cream Indications: Dermatitis Apply 1 application to affected area two times a day. On left foot 45 g 02/15/2024 Active Start: 04-04-2019 Nystatin Activ e 1 APPLIC TOPICAL THREE TIMES A DAY April 04, 2019 12:00am Comment on above: Apply 1 application to affected area two times a day. omeprazole 20 mg delayed release oral capsule (20 sources) Proton Pump Inhibitor Start: End: take 2 capsules by mouth once daily omeprazole (PRILOSEC) 20 mg capsule Indications: GERD without esophagitis Take 2 capsules by mouth once daily. 60 capsule 11 04/13/2025 Active Comment on above: Take 2 capsules by m outh once daily. ondansetron 4 mg oral tablet (4 sources) Serotonin-3 Receptor Antagonist Start: 1 take 1 tablet by mouth every eight hours Ondansetron Hcl (Zofran) 4 mg tablet Active 4 MG PO Q8H August 28, 2021 12:00am Start: 10-25-2020 take 4 mg by mouth e very eight hours as needed Ondansetron Active 4 MG PO EVERY 8 HOURS NEEDED October 25, 2020 1:00am pantoprazole 40 mg delayed release oral tablet (4 sources) Proton Pump Inhibitor Start: 04-01-2019 take 40 mg by mouth twice daily Pantoprazole Active 40 MG PO TWICE A DAY April 01, 2019 9:55am Start: 02-18-2019 End: 04-01-2019 take 40 mg by mouth once daily Pantoprazole Discontinu ed 40 MG PO DAILY February 18, 2019 12:00am April 01, 2019 9:58am phenazopyridine hydrochloride 100 mg oral tablet (2 sources) Start: 12-26-2024 End: 12-31-2024 take 1 tablet by mouth three times daily as needed phenazopyridine (PYRIDIUM) 100 mg tablet Indications: Acute UTI Take 1 tablet by mouth three times a day as needed for up to 5 days. 15 tablet 12/26/2024 12/31/2024 Active pioglitazone 30 mg oral tablet (20 sources) Peroxisome Proliferator Receptor alpha Agonist, Peroxisome Proliferator Receptor gamma Agonist, Thiazolidinedione Start: 06-06-2024 End: 05-16-2026 take 1 tablet by mouth once daily pioglitazone (ACTOS) 30 mg tablet Indications: Hyperlipidemia, unspecified hyperlipidemia type Take 1 tablet by mouth once daily. 90 tablet 3 05/16/2025 05/16/2026 Active Start: 03-27-2021 End: 06-06-2024 take 1 tablet by mouth once daily pioglitazone (ACTOS) 15 mg tablet Indications: Hyperlipidemia, unspecified hyperlipidemia type Take 1 tablet by mouth once daily. 90 tablet 1 02/25/2022 08/08/2022 Discontinued Start: 02-24-2018 take 45 mg by mouth once daily Pioglitazone Active 45 MG PO DAILY February 24, 2018 12:00am Start: 01-26-2017 ACTOS 15 MG TA BS PIOGLITAZONE HCL [id number] Presley Farias Start: 01-26-2017 ACTOS 45 MG TA BS one a day PIOGLITAZONE HCL [id number] Presley Farias Comment on above: Take 1 tablet by lydia th once daily. polymyxin b 99033 unt/ml / trimethoprim 1 mg/ml ophthalmic solution (1 source) Dihydrofolate Reductase Inhibitor Antibacterial, Polymyxin-class Antibacterial Start: 5 End: 5 take 1 drop(s) into the eye(s) every four hours trimethoprim-polym yxin (POLYTRIM) 10,000 unit- 1 mg/mL ophthalmic solution Use 1 Drop in both eyes every 4 hours for 7 days. 10 mL 11/03/2024 11/10/2024 Active sertraline 50 mg oral tablet (20 sources) Serotonin Reuptake Inhibitor Start: 2 End: 3 take 1 tablet by mouth once daily sertraline (ZOLOFT) 50 mg tablet Take 1 tablet by mouth once daily. 30 tablet 2 11/27/2022 Active Start: 01-07-2022 End: 03-03-2022 take 1 tablet by mouth once daily sertraline (ZOLOFT) 50 mg tablet Take 1 tablet by mouth once daily. 90 tablet 1 03/03/2022 Active Comment on above: Take 1 tablet by lydia th once daily. SITagliptin 100 mg oral tablet (20 sources) Dipeptidyl Peptidase 4 Inhibitor Start: 8 End: 5 take 1 tablet by mouth once daily SITagliptin phosphate (JANUVIA) 100 mg tablet Indications: Type 2 diabetes mellitus with diabetic neuropathy, without long-term current use of insulin (HCC) Take 1 tablet by mouth once daily. 90 tablet 1 05/16/2025 Active Start: 01-26-2017 JANUVIA 50 MG TABS one a day SITAGLIPTIN PHOSPHATE [id number] Presley Farias Comment on above: Take 1 tablet by lydia th once daily. triamcinolone acetonide 0.001 mg/mg topical ointment (20 sources) Corticosteroid Start: 12-15-19 23 triamcinolone acetonide (KENALOG) 0.1 % ointment Indications: Open wound of skin Apply to affected area twice daily. X 2 weeks; then take a break X 1 week. If still present, then restart X 2 more weeks. 30 g 1 12/15/2022 Active Comment on above: Apply to affected ar ea twice daily. X 2 weeks; then take a break X 1 week. If still present, then restart X 2 more weeks. vitamin b12 1 mg oral tablet (20 sources) Vitamin B12 Start: 11-01-19 End: 07-11-20 25 take 1 tablet by mouth once daily cyanocobalamin (VITAMIN B-12) 1,000 mcg tab Take 1 tablet by mouth once daily. 90 tablet 3 07/11/2025 Active Start: 12-10-2020 End: 05-20-2021 take 1 tablet by mouth once daily cyanocobalamin (VITAMIN B-12) 1,000 mcg tab Take 1 tablet by mouth once daily. 28 tablet 5 12/10/2020 05/20/2021 Discontinued Comment on above: Take 1 tablet by lydia once daily. Completed/Discontinued Medications Medication Drug Class(es) Dates Sig (Normalized) Sig (Original) acetaminophen 325 mg / oxyCODONE hydrochloride 5 mg oral tablet (2 sources) Opioid Agonist Start: 08-30-2018 End: 09-02-2018 take 1 tablet by mouth every six hours as needed Oxycodone-Acetamin ophen Discontinued 1 TABLET PO EVERY 6 HOURS NEEDED 12 3 August 30, 2018 1:00am September 02, 2018 1:09am amLODIPine 5 mg oral tablet (2 sources) Dihydropyridine Calcium Channel Belkys Start: 01-26-2017 AMLODIPINE BESYLATE 5 MG TABS one a day AMLODIPINE BESYLATE [id number] Presley Farias Blood-Glucose Sensor (FREESTYLE RADHA 3 SENSOR) brice (13 sources) Start: 09-14-2023 End: 04-12-2024 Blood-Glucose Sensor (FREESTYLE RADHA 3 SENSOR) brice Indications: Type 2 diabetes mellitus with diabetic neuropathy, with long-term current use of insulin (HCC) , Uncontrolled type 2 diabetes mellitus with hyperglycemia (HCC) Apply new sensor every fourteen (14) days to upper arm. 6 Each 4 09/14/2023 04/12/2024 Discontinued Start: 09-14-2023 Blood-Glucose Sensor (FREESTYLE RADHA 3 SENSOR) brice Indications: Type 2 diabetes mellitus with diabetic neuropathy, with long-term current use of insulin (HCC) , Uncontrolled type 2 diabetes mellitus with hyperglycemia (HCC) Apply new sensor every fourteen (14) days to upper arm. 6 Each 4 09/14/2023 Active Comment on above: Apply new sensor camelia ry fourteen (14) days to upper arm. celecoxib 200 mg oral capsule (20 sources) Nonsteroidal Anti-inflammatory Drug Start: End: take 1 capsule by mouth once daily celecoxib (CELEBREX) 200 mg capsule Indications: Chronic left shoulder pain Take 1 capsule by mouth once daily. 30 capsule 2 12/22/2024 01/17/2025 Discontinued Start: 11-03-2023 take 1 capsule by mo uth once daily celecoxib (CELEBREX) 200 mg capsule Indications: Chronic left shoulder pain Take 1 capsule by mouth once daily. 30 capsule 2 11/03/2023 Active Start: 08-07-2023 take 1 capsule by mo uth once daily celecoxib (CELEBREX) 200 mg capsule Indications: Chronic left shoulder pain Take 1 capsule by mouth once daily. 30 capsule 2 08/07/2023 Active Start: 05-19-2023 take 1 capsule by mo uth once daily celecoxib (CELEBREX) 200 mg capsule Indications: Chronic left shoulder pain Take 1 capsule by mouth once daily. 30 capsule 2 05/19/2023 Active Start: 07-08-2022 End: 02-20-2023 take 1 capsule by mouth once daily celecoxib (CELEBREX) 200 mg capsule Indications: Chronic left shoulder pain Take 1 capsule by mouth once daily. 30 capsule 2 07/08/2022 09/05/2022 Discontinued Comment on above: Take 1 capsule by mo uth once daily. CPAP (20 sources) Start: 08-12-2021 End: 04-12-2024 CPAP Indications: HIMANSHU (obstructive sleep apnea) , Class 2 obesity with body mass index (BMI) of 38.0 to 38.9 in adult, unspecified obesity type, unspecified whether serious comorbidity present Pt device on recall list. Given findings on eval, would like pt to be changed to an AutoPAP device with humidity set at 10-16 cmH2O. Please provide download in 4 weeks. Also with mask leaks and please try to fit with dreamwear under nose FFM. 1 Each 08/12/2021 04/12/2024 Discontinued Start: 08-12-2021 CPAP Indicatio ns: HIMANSHU (obstructive sleep apnea) , Class 2 obesity with body mass index (BMI) of 38.0 to 38.9 in adult, unspecified obesity type, unspecified whether serious comorbidity present Pt device on recall list. Given findings on eval, would like pt to be changed to an AutoPAP device with humidity set at 10-16 cmH2O. Please provide download in 4 weeks. Also with mask leaks and please try to fit with dreamwear under nose FFM. 1 Each 08/12/2021 Active Comment on above: Pt device on recall list. Given findings on eval, would like pt to be changed to an AutoPAP device with humidity set at 10-16 cmH2O. Please provide download in 4 weeks. Also with mask leaks and please try to fit with dreamwear under nose FFM. dapagliflozin 10 mg oral tablet (2 sources) Sodium-Glucose Cotransporter 2 Inhibitor Start: 01-26-2017 FARXIGA 10 MG TABS one daily DAPAGLIFLOZIN PROPANEDIOL [id number] Presley Farias Diaper,Brief, Adult,Disposable (BRIEFS EXTRA LARGE) (2 sources) Start: 05-09-2021 End: 05-09-2021 Diaper,Brief, Adult,Disposable (BRIEFS EXTRA LARGE) Indications: Urge incontinence 4 Each four times daily. 120 Each 6 05/09/2021 05/09/2021 Discontinued Start: 05-09-2021 End: 06-08-2021 Diaper,Brief, Adult,Disposab le (BRIEFS EXTRA LARGE) Indications: Urge incontinence 4 Each four times daily. 120 Each 6 05/09/2021 06/08/2021 Comment on above: 4 Each four times da sariah. diclofenac sodium 75 mg delayed release oral tablet (6 sources) Nonsteroidal Anti-inflammatory Drug Start: End: 2 take 1 tablet by mouth three times daily as needed for pain diclofenac, EC, (VOLTAREN) 75 mg EC tablet Indications: Acute pain of right knee Take 1 tablet by mouth three times daily as needed. FOR PAIN 270 tablet 1 05/09/2021 03/25/2022 Discontinued (Other) Comment on above: Take 1 tablet by lydia th three times daily as needed. FOR PAIN estrogens, conjugated (halfway) 0.3 mg oral tablet (5 sources) Estrogen Start: PREMARIN 0.3 MG TABS daily ESTROGENS CONJUGATED [id number] Presley Farias Start: 01-26-2017 PREMARIN 1.25 MG TABS ESTROGENS CONJUGATED [id number] Presley Farias Incontinence Pad, Liner, Dis p (PADS FOR WOMEN) pads (2 sources) Start: 05-09-2021 End: 05-09-2021 Incontinence Pad, Liner, Dis p (PADS FOR WOMEN) pads Indications: Urge incontinence 2 Product twice daily. 60 Each 6 05/09/2021 05/09/2021 Discontinued Start: 05-09-2021 End: 06-08-2021 Incontinence Pad, Liner, Dis p (PADS FOR WOMEN) pads Indications: Urge incontinence 2 Product twice daily. 60 Each 6 05/09/2021 06/08/2021 Comment on above: 2 Product twice jeff y. meloxicam 15 mg oral tablet (10 sources) Nonsteroidal Anti-inflammatory Drug Start: 03-25-20 End: 07-08-20 take 1 tablet by mouth once daily at mealtime meloxicam (MOBIC) 15 mg tablet Indications: Neck pain , Chronic bilateral low back pain without sciatica Take 1 tablet by mouth once daily. With food. 90 tablet 1 03/25/2022 07/08/2022 Discontinued (Other) Comment on above: Take 1 tablet by lydia th once daily. With food. MULTIVITAMIN ORAL (20 sources) End: 03-07-20 24 take 1 tablet by mouth once daily MULTIVITAMIN ORAL Take 1 tablet by mouth once daily. 03/07/2024 Discontinued (Duplicate Entry) End: 03-07-2024 take 1 tablet by mouth once daily MULTIVITAMIN ORAL Take 1 tablet by mouth once daily. 0 03/07/2024 Discontinued (Duplicate Entry) take 1 tablet by lydia th once daily MULTIVITAMIN ORAL Take 1 tablet by mouth once daily. 0 Active Comment on above: Take 1 tablet by lydia th once daily. rosuvastatin calcium 10 mg oral tablet (2 sources) HMG-CoA Reductase Inhibitor Start: 01-27-20 17 CRESTOR 10 MG TABS one at bedtime ROSUVASTATIN CALCIUM [id number] Presley Farais spironolactone 25 mg oral tablet (4 sources) Aldosterone Antagonist Start: 02-25-20 18 End: 04-01-20 19 take 25 mg by mouth once daily Spironolactone Discontinued 25 MG PO DAILY February 24, 2018 12:00am April 01, 2019 10:03am Start: 01-26-2017 SPIRONOLACTONE 25 MG TABS one each morning SPIRONOLACTONE [id number] Presley Farias Problems Active Problems Problem Classification Problem Date Documented Date Episodic/Chronic Allergic reactions (1 source) Inflammatory dermatosis; Translations: [Dermatitis, unspecified] 02-15-2024 Episodic Anxiety disorders (2 sources) Mixed anxiety and depressive disorder; Translations: [Anxiety disorder, unspecified] 04-04-2019 Chronic Chronic kidney disease (4 sources) Chronic kidney disease stage 3A ; Translations: [Stage 3a chronic kidney disease (HCC)] 01-17-2025 Chronic Chronic kidney disease (1 source) Chronic kidney disease; Translations: [Stage 3a chronic kidney disease (HCC)] Onset: 08-14-2025 Diabetes mellitus with complications (20 sources) Neuropathy due to type 2 diabetes mellitus; Translations: [Type 2 diabetes mellitus with diabetic neuropathy, unspecified] Onset: 07-15-2018 Resolved: 11-27-2021 12-10-2021 Chronic Diabetes mellitus without complication (4 sources) Type 2 diabetes mellitus without complication; Translations: [Type 2 diabetes mellitus without complications] Chronic Disorders of lipid metabolism (20 sources) Hyperlipidemia; Translations: [Hyperlipidemia, unspecified] Onset: 07-15-2018 07-15-2018 Chronic E Codes: Fall (4 sources) Fall; Translations: [Unspecified fall, initial encounter] 04-25-2021 Episodic Esophageal disorders (5 sources) Gastroesophageal reflux disease without esophagitis; Translations: [Gastro-esophageal reflux disease without esophagitis] Onset: 08-14-2025 Chronic Essential hypertension (20 sources) Benign essential hypertension; Translations: [Essential (primary) hypertension] Onset: 07-15-2018 07-15-2018 Chronic Genitourinary symptoms and ill-defined conditions (20 sources) Urge incontinence of urine; Translations: [Urge incontinence] Onset: 02-03-2024 Chronic Immunizations and screening for infectious disease (8 sources) Patient encounter status; Translations: [Encounter for immunization] Onset: 08-14-2025 Episodic Inflammation; infection of eye (except that caused by tuberculosis or sexually transmitteddisease) (1 source) Conjunctivitis of right eye; Translations: [Unspecified conjunctivitis] 11-03-2024 Episodic Mood disorders (20 sources) Depressive disorder; Translations: [Depression] Onset: 07-15-2018 07-15-2018 Chronic Mood disorders (1 source) Mood disorders; Translations: [Depression, unspecified depression type] Onset: 07-15-2018 Mycoses (3 sources) Tinea cruris; Translations: [Tinea cruris] 04-05-2019 Episodic Nausea and vomiting (2 sources) Nausea; Translations: [Nausea] 09-05-2021 Episodic Other aftercare (1 source) Encounter for therapeutic drug level monitoring; Translations: [Medication monitoring encounter] Onset: 08-14-2025 Episodic Other connective tissue disease (2 sources) Pain in finger of right hand; Translations: [Pain in right finger(s)] Episodic Other connective tissue disease (2 sources) Radial styloid tenosynovitis; Translations: [Radial styloid tenosynovitis [de Quervain]] 06-21-2019 Episodic Other connective tissue disease (1 source) Complete rotator cuff tear or rupture of left shoulder, not specified as traumatic; Translations: [Complete rotator cuff tear or rupture of left shoulder, not specified as traumatic] Onset: 08-24-2024 Episodic Other connective tissue disease (1 source) Unspecified rotator cuff tear or rupture of unspecified shoulder, not specified as traumatic; Translations: [Unspecified rotator cuff tear or rupture of unspecified shoulder, not specified as traumatic] Onset: 08-17-2024 Episodic Other diseases of kidney and ureters (2 sources) Renal impairment; Translations: [Disorder of kidney and ureter, unspecified] 06-07-2024 Episodic Other endocrine disorders (2 sources) Hypoglycemia; Translations: [Hypoglycemia, unspecified] 09-05-2021 Chronic Other inflammatory condition of skin (1 source) Intertrigo; Translations: [Erythema intertrigo] 12-07-2023 Episodic Other injuries and conditions due to external causes (2 sources) Abrasion; Translations: [Other injury of unspecified body region, initial encounter] Episodic Other injuries and conditions due to external causes (2 sources) Chilblains; Translations: [Chilblains, initial encounter] 11-28-2020 Episodic Other injuries and conditions due to external causes (4 sources) Open wound of skin; Translations: [Other injury of unspecified body region, initial encounter] Episodic Other injuries and conditions due to external causes (2 sources) Injury of left shoulder; Translations: [Unspecified injury of left shoulder and upper arm, initial encounter] 02-09-2024 Episodic Other non-traumatic joint disorders (4 sources) Shoulder pain; Translations: [Pain in left shoulder] Onset: 01-26-2017 01-26-2017 Episodic Other non-traumatic joint disorders (8 sources) Chronic pain of left upper limb; Translations: [Pain in left shoulder] Episodic Other non-traumatic joint disorders (2 sources) Effusion of right knee joint; Translations: [Effusion, right knee] 01-14-2020 Episodic Other non-traumatic joint disorders (2 sources) Pain in left shoulder; Translations: [Pain in joint, shoulder region] 02-15-2024 Episodic Other non-traumatic joint disorders (1 source) Other specified joint disorders, left shoulder; Translations: [Other specified joint disorders, left shoulder] Onset: 08-17-2024 Episodic Other nutritional; endocrine; and metabolic disorders (3 sources) Obesity; Translations: [Obesity, unspecified] Chronic Other screening for suspected conditions (not mental disorders or infectious disease) (1 source) Encounter for screening mammogram for malignant neoplasm of breast; Translations: [Encounter for screening mammogram for breast cancer] Onset: 08-14-2025 Episodic Other upper respiratory infections (5 sources) Upper respiratory infection; Translations: [Acute upper respiratory infection, unspecified] 11-26-2019 Episodic Otitis media and related conditions (1 source) Acute right otitis media; Translations: [Otitis media, unspecified, right ear] 11-03-2024 Episodic Residual codes; unclassified (20 sources) Obstructive sleep apnea syndrome; Translations: [Obstructive sleep apnea (adult) (pediatric)] Onset: 03-25-2019 Chronic Residual codes; unclassified (20 sources) Sleep apnea; Translations: [Sleep apnea, unspecified] Onset: 03-25-2019 05-30-2019 Chronic Residual codes; unclassified (1 source) Obstructive sleep apnea (adult) (pediatric); Translations: [HIMANSHU on CPAP] Onset: 06-06-2024 Chronic Residual codes; unclassified (1 source) Other specified postprocedural states; Translations: [Other specified postprocedural states] Onset: 08-17-2024 Episodic Screening and history of mental health and substance abuse codes (3 sources) Ex-tobacco user; Translations: [Personal history of nicotine dependence] 04-04-2019 Episodic Sprains and strains (5 sources) Strain of unspecified muscle, fascia and tendon at shoulder and upper arm level, left arm, initial encounter; Translations: [Injury of right hand] Onset: 01-26-2017 02-04-2017 Episodic Superficial injury; contusion (17 sources) Contusion of left shoulder, initial encounter; Translations: [Contusion of left shoulder, subsequent encounter] Onset: 01-26-2017 02-04-2017 Episodic Thyroid disorders (20 sources) Hypothyroidism; Translations: [Hypothyroidism, unspecified] Onset: 07-15-2018 07-15-2018 Chronic Unclassified (1 source) Unknown / UNK(Unknown) Onset: 09-03-2017 Unclassified (2 sources) Contusion of left shoulder, initial encounter 07-10-2020 Unclassified (2 sources) Contusion of right knee, initial encounter 04-25-2021 Unclassified (1 source) Acute midline low back pain without sciatica; Translations: [Acute midline low back pain without sciatica] Onset: 04-20-2025 Urinary tract infections (3 sources) Acute cystitis; Translations: [Acute cystitis without hematuria] 04-05-2019 Episodic Past or Other Problems Problem Classification Problem Date Documented Date Episodic/Chronic Diabetes mellitus without complication (1 source) Diabetes mellitus without complication Onset: 09-03-2017 Genitourinary symptoms and ill-defined conditions (20 sources) Microalbuminuria; Translations: [Proteinuria, unspecified] Onset: 12-07-2023 12-07-2023 Episodic Nonspecific chest pain (20 sources) Chest pain; Translations: [Chest pain, unspecified] Onset: 06-18-2020 Resolved: 03-20-2021 07-10-2021 Episodic Nutritional deficiencies (20 sources) Cobalamin deficiency; Translations: [Deficiency of other specified B group vitamins] Onset: 07-15-2018 08-17-2018 Episodic Other aftercare (1 source) Contusion of left shoulder, subsequent encounter; Translations: [Contusion of left shoulder, subsequent encounter] Onset: 03-09-2017 03-23-2017 Episodic Other diseases of kidney and ureters (1 source) Disorder of kidney and ureter, unspecified; Translations: [Renal insufficiency] Onset: 01-16-2025 Episodic Other non-traumatic joint disorders (20 sources) Joint pain; Translations: [Pain in unspecified joint] Onset: 07-15-2018 Resolved: 11-10-2022 07-15-2018 Episodic Other nutritional; endocrine; and metabolic disorders (20 sources) Developmental delay; Translations: [Unspecified lack of expected normal physiological development in childhood] Onset: 08-17-2018 08-17-2018 Episodic Pulmonary heart disease (20 sources) Pulmonary hypertension; Translations: [Pulmonary hypertension, unspecified] Onset: 02-24-2019 Resolved: 03-20-2021 03-20-2021 Chronic Residual codes; unclassified (20 sources) Insomnia; Translations: [Insomnia, unspecified] Onset: 07-15-2018 07-15-2018 Episodic Spondylosis; intervertebral disc disorders; other back problems (20 sources) Cervical radiculopathy; Translations: [Radiculopathy, cervical region] Onset: 08-28-2020 Resolved: 11-10-2022 08-28-2020 Episodic Unclassified (1 source) Patient encounter status 12-26-2024 Results Test Name Value Interpretation Reference Range Facility Basic metabolic 2000 panelon 08-14-2025 Anion gap [Moles/Vol] 13 mmol/L Normal 8- [facility] Comment on above: Order Comment: Speci men Type: BLOOD SPECIMENOrdering Facility: [facility] Address: [address] [place] [address] Performed By: #### 2 4321-2, 3016-3 ####[facility] LABCLIA [id number] [place] [address] [place] Calcium [Mass/Vol] 9.6 mg/dL Normal 8.5-10.2 [facility] Comment on above: Order Comment: Speci men Type: BLOOD SPECIMENOrdering Facility: [facility] Address: [address] [place] [address] Performed By: #### 2 4321-2, 6-3 ####[facility] LABCLIA [id number] [place] [id number] [place] Chloride [Moles/Vol] 104 mmol/L Normal 98-107 [facility] Comment on above: Order Comment: Speci men Type: BLOOD SPECIMENOrdering Facility: [facility] Address: [address] [place] [address] Performed By: #### 2 4321-2, 3015-3 ####[facility] LABCLIA [id number] [place] [address] [place] CO2 [Moles/Vol] 27 mmol/L Normal 22-30 [facility] Comment on above: Order Comment: Speci men Type: BLOOD SPECIMENOrdering Facility: [facility] Address: [address] [place] [address] Performed By: #### 2 4321-2, 3015-3 ####[facility] LABCLIA [id number] [place] [address] [place] Creatinine [Mass/Vol] 1.23 mg/dL High 0.58-0.96 [facility] Comment on above: Order Comment: Speci men Type: BLOOD SPECIMENOrdering Facility: [facility] Address: [address] [place] [address] Performed By: #### 2 4321-2, 3015-3 ####[facility] LABCLIA [id number] [place] [id number] [place] eGFRcr SerPlBld CKD-EPI 2020 51 mL/min/1.73m??? Low >=60 [facility] Comment on above: Order Comment: Speci men Type: BLOOD SPECIMENOrdering Facility: [facility] Address: [address] [place] [address] Result Comment: Ramya mated Glomerular Filtration Rate (eGFR) is calculated using the 2020 CKD-EPI creatinine equation. This equation utilizes serum creatinine, sex, and age as parameters. The creatinine assay has traceable calibration to isotope dilution-mass spectrometry. Refer to KDIGO guidelines for clinical interpretation. In patients with unstable renal function, e.g. those with acute kidney injury, the eGFR may not accurately reflect actual GFR. Performed By: #### 2 4321-2, 3015-3 ####[facility] LABCLIA [id number] [place] [address] [place] Glucose [Mass/Vol] 61 mg/dL Low 74-99 [facility] Comment on above: Order Comment: Conner saleh Type: BLOOD SPECIMENOrdering Facility: [facility] Address: [address] [place] [address] Result Comment: The [place] Diabetes [employer] (ADA) provides guidance for cutoff values for fasting glucose and random glucose. The ADA defines fasting as no caloric intake for at least 8 hours. Fasting plasma glucose results between 100 to 125 mg/dL indicate increased risk for diabetes (prediabetes). Fasting plasma glucose results greater than or equal to 126 mg/dL meet the criteria for diagnosis of diabetes. In the absence of unequivocal hyperglycemia, results should be confirmed by repeat testing. In a patient with classic symptoms of hyperglycemia or hyperglycemic crisis, random plasma glucose results greater than or equal to 200 mg/dL meet the criteria for diagnosis of diabetes. Reference: Standards of Medical Care in Diabetes 2016, [place] [employer]. Diabetes Care. 2016.39(Suppl 1). Performed By: #### 2 1-2, 3015-3 ####[facility] LABCLIA [id number] [place] [id number] [place] Potassium [Moles/Vol] 4.6 mmol/L Normal 3.7-5.1 [facility] Comment on above: Order Comment: Conner saleh Type: BLOOD SPECIMENOrdering Facility: [facility] Address: [address] [place] [address] Performed By: #### 2 4321-2, 3015-3 ####[facility] LABCLIA [id number] [place] [address] [place] Sodium [Moles/Vol] 144 mmol/L Normal 136-144 [facility] Comment on above: Order Comment: Conner saleh Type: BLOOD SPECIMENOrdering Facility: [facility] Address: [address] [place] [address] Performed By: #### 2 4321-2, 6-3 ####[facility] LABCLIA [id number] [address] [place] Urea nitrogen [Mass/Vol] 33 mg/dL High 7-21 [facility] [facility] Comment on above: Order Comment: Speci men Type: BLOOD SPECIMENOrdering Facility: [facility] Address: [address] [place] [address] Performed By: #### 2 4321-2, 3015-3 ####[facility] LABCLIA [id number] [address] OF [facility] CNOVon 08-14-2025 [facility] ARCENIO RAND ([id number]) 1965 F Date Time Provider Department 08/14/25 10:20 AM [facility] During your visit today, we recorded the following information about you: Pulse Blood pressure Weight 54/minute 104/62 77.6 kg Ranjeet Goodwin MD 08/14/2025 11:02 AM Signed We discussed your diabetes and blood sugar management: - Your blood sugar log looks good. We will check your A1c today to monitor your average blood sugar levels. - Continue taking your insulin as prescribed. Refills for your insulin have been sent to your pharmacy. We discussed your thyroid management: - Continue taking your thyroid medication as prescribed. Refills have been sent to your pharmacy. - We will check your thyroid levels today with blood work. - In 6 months, we will repeat blood work, including a comprehensive metabolic panel (CMP), thyroid levels, and other labs. We discussed your blood pressure: - Your home blood pressure readings look good. Continue monitoring your blood pressure at home. We discussed your heartburn: - Reduce your omeprazole to once daily in the morning to see if this helps minimize potential effects on kidney function. Let me know if your symptoms worsen or do not improve. We discussed your general health and upcoming preventive care: - You received your flu shot today. - Consider getting the COVID-19 vaccine, as well as Hepatitis B and shingles vaccines, in the future. - Your next mammogram is due on January 30. The order has been placed for this. We discussed your follow-up plan: - Blood work was completed today, including A1c, thyroid levels, and a basic metabolic panel (BMP). - In 6 months, we will repeat blood work, including a complete blood count (CBC), CMP, A1c, cholesterol, kidney function, urine microalbumin, B12, and magnesium. - Your next follow-up appointment is in 6 months. Please continue watching your diet, using your CPAP, and monitoring your symptoms. Let me know if you experience any new or worsening symptoms, including chest pain, swelling, or significant changes in mood or energy levels. Ranjeet Goodwin MD 08/14/2025 12:21 PM Signed The patient is a 60-year-old female with HTN, DM, hypothyroidism, HIMANSHU, and GERD, presenting for follow-up. TAN Lam is a 60-year-old female with a history of DM, HTN, HIMANSHU, hypothyroidism, GERD, and depression, presenting for a follow-up visit. Diabetes Mellitus: - Home blood glucose readings are well-controlled. - Requires insulin refills. - Denies polyuria, polydipsia, or polyphagia. Hypertension: - Home blood pressure readings are well-controlled. - Denies chest pain, dyspnea, or edema. Obstructive Sleep Apnea: - Continues to use CPAP with perceived benefit. Hypothyroidism: - Adherent to thyroid medication. - Reports good energy levels. GERD: - Occasional heartburn, dependent on dietary intake. - Currently taking omeprazole BID. - No history of upper endoscopy. Depression: - Mood fluctuations noted. - Denies significant depression or anxiety. - Finds solitude helpful when feeling down. - Current medications perceived as effective. Weight Loss: - Lost an additional 3 lbs since last visit. - Monitoring diet; denies significant dietary restrictions. MEDICATIONS: Current Outpatient Medications Medication Sig aspirin, enteric coated (ASPIRIN, ENTERIC COATED) 81 mg EC tablet Take 1 tablet by mouth once daily. (self-started) cyanocobalamin (VITAMIN B-12) 1,000 mcg tab Take 1 tablet by mouth once daily. multivitamin-ferrous fumarate-folic acid (CENTRUM) Take 1 tablet by mouth once daily. DULoxetine DR (CYMBALTA) 60 mg capsule Take 1 capsule by mouth once daily. lisinopril (ZESTRIL) 40 mg tablet Take 1 tablet by mouth once daily. atenolol (TENORMIN) 100 mg tablet Take 1 tablet by mouth once daily. atorvastatin (LIPITOR) 20 mg tablet Take 1 tablet by mouth daily at bedtime. For cholesterol. empagliflozin (JARDIANCE) 25 mg tablet Take 1 tablet by mouth once daily. estradiol (ESTRACE) 1 mg tablet Take 1 tablet by mouth once daily. metFORMIN ER (GLUCOPHAGE XR) 500 mg 24 hr tablet Take 2 tablet by mouth twice daily with food. pioglitazone (ACTOS) 30 mg tablet Take 1 tablet by mouth once daily. SITagliptin phosphate (JANUVIA) 100 mg tablet Take 1 tablet by mouth once daily. cyclobenzaprine (FLEXERIL) 5 mg tablet Take 1 tablet by mouth at bedtime as needed. chlorthalidone (HYGROTON) 25 mg tablet Take 1 tablet by mouth once daily. CPAP/BIPAP/OTHER autoCPAP 5-12 cmH2O DME [employer] sertraline (ZOLOFT) 50 mg tablet Take 1 tablet by mouth once daily. hydrOXYzine HCl (ATARAX) 25 mg tablet Take 1 tablet by mouth every 6 hours as needed for anxiety. Cholecalciferol, Vitamin D3, (VITAMIN D-3) 50 mcg (2,000 unit) cap Take 1 capsule by mouth once daily. levothyrox (more content not included)... Normal [facility] HbA1c (Bld)on 08-14-2025 Average glucose Estimated from glycated hemoglobin (Bld) [Mass/Vol] 151 mg/dL Normal [facility] Comment on above: Order Comment: Speci men Type: BLOOD SPECIMENOrdering Facility: [facility] Address: [address] [place] [address] Result Comment: eAG: (Estimated average glucose) is a calculated value from HgbA1c and is medical customer service representative of the average blood glucose level in the last 2-3 month period. Performed By: #### 5 5454-3 ####[facility] LABCLIA [id number] [place] [address] [place] HbA1c (Bld) [Mass fraction] 6.9 % High 4.3-5.6 [facility] Comment on above: Order Comment: Conner saleh Type: BLOOD SPECIMENOrdering Facility: [facility] Address: [address] [place] [address] Result Comment: [place] Diabetes Association guidelines indicate that patients with HgbA1c in the range 5.7-6.4% are at increased risk for development of diabetes, and intervention by lifestyle modification may be beneficial. HgbA1c greater or equal to 6.5% is considered diagnostic of diabetes. Performed By: #### 5 5454-3 ####[facility] LABCLIA [id number] [place] [address] [place] TSH SerPl-aCncon 08-14-2025 TSH Qn 2.140 m[IU]/L Normal 0.270-4.200 [facility] Comment on above: Order Comment: Conner saleh Type: BLOOD SPECIMENOrdering Facility: [facility] Address: [address] [place] [address] Performed By: #### 2 4321-2, 3016-3 ####[facility] LABCLIA [id number] [address] [place] CNOVon 04-20-2025 CNOV Office Visit ([facility]) ARCENIO RAND ([id number]) 1965 F Date Time Provider Department 04/20/25 3:30 PM [facility] During your visit today, we recorded the following information about you: Temperature Pulse Respiration Blood pressure 97.3 degrees 73/minute 18/minute 127/85 Weight 79 kg Ilda Epstein PA 04/20/2025 4:48 PM Signed [facility] Subjective Arcenio Rand is a 60 year old female. Patient presents with: Back Pain: Lower middle back pain, states she woke up yesterday and had the pain, and is aching and increases with certain movements x 2 days HPI Lower Back Pain: - Acute onset lower back pain, began yesterday morning while getting out of bed. - Pain localized to the center of the lower back. - Aggravated by movement and bending over (e.g., putting on shoes). - Took Tylenol with no relief. - Denies known trauma or injury. - Denies numbness or tingling in the legs, or pain radiating down the legs. - No loss of bowel or bladder function; denies hematuria or dysuria. - History of arthritis and degenerative disc disease; no previous surgery on the lower back. - History of chronic pain and arthritis, previously tolerated Flexeril at bedtime. - Currently in physical therapy for shoulder surgery. PAST MEDICAL HISTORY Diagnosis Date Arthralgia Chronic back pain Depression Developmental delay Diabetic neuropathy (HCC) feet DM (diabetes mellitus) (HCC) Hypertension Hypothyroid Mental disorder Snoring PAST SURGICAL HISTORY Procedure Laterality Date COLONOSCOPY FLX DX W/COLLJ SPEC WHEN PFRMD 09/23/2018 Colonoscopy HYSTERECTOMY N/A XCAPSL CTRC RMVL INSJ IO LENS PROSTH CPLX WO ECP ALLERGIES Amoxicillin, Bleach (Sodium Hypochlorite), Penicillins, and Sulfa (Sulfonamide Antibiotics) MEDICATIONS omeprazole (PRILOSEC) 20 mg capsule Take 2 capsules by mouth once daily. levothyroxine (SYNTHROID) 50 mcg tablet Take 1 tablet by mouth once daily. Take on empty stomach. For Thyroid. insulin glargine 100 unit/mL (3 mL) Inject 32 Units subcutaneously every morning. chlorthalidone (HYGROTON) 25 mg tablet Take 1 tablet by mouth once daily. Insulin [place], Disposable, (BD ULTRA-FINE ROSALIE PEN NEEDLE) 32 gauge x Use to inject insulin once daily as directed Lancets One Touch Test blood sugar(s) 2 times daily. Dx: Type 2 DM - Controlled E11.9 Insulin: Yes DULoxetine (CYMBALTA) 60 mg capsule Take 1 capsule by mouth once daily. atorvastatin (LIPITOR) 20 mg tablet Take 1 tablet by mouth daily at bedtime. For cholesterol. atenolol (TENORMIN) 100 mg tablet Take 1 tablet by mouth once daily. empagliflozin (JARDIANCE) 25 mg tablet Take 1 tablet by mouth once daily. estradiol (ESTRACE) 1 mg tablet Take 1 tablet by mouth once daily. metFORMIN ER (GLUCOPHAGE XR) 500 mg 24 hr tablet Take 2 tablet by mouth twice daily with food. SITagliptin phosphate (JANUVIA) 100 mg tablet Take 1 tablet by mouth once daily. CPAP/BIPAP/OTHER autoCPAP 5-12 cmH2O DME [employer] aspirin, enteric coated (ASPIRIN, ENTERIC COATED) 81 mg EC tablet Take 1 tablet by mouth once daily. (self-started) cyanocobalamin (VITAMIN B-12) 1,000 mcg tab Take 1 tablet by mouth once daily. multivitamin-ferrous fumarate-folic acid (CENTRUM) Take 1 tablet by mouth once daily. pioglitazone (ACTOS) 30 mg tablet Take 1 tablet by mouth once daily. lisinopril (ZESTRIL) 40 mg tablet Take 1 tablet by mouth once daily. blood sugar diagnostic (BLOOD GLUCOSE TEST) test strip Test blood sugar(s) 2 times daily. Dx: Type 2 DM - Controlled E11.9 Insulin: Yes nystatin (MYCOSTATIN) cream Apply 1 application to affected area two times a day. On left foot triamcinolone acetonide (KENALOG) 0.1 % ointment Apply to affected area twice daily. X 2 weeks; then take a break X 1 week. If still present, then restart X 2 more weeks. blood sugar diagnostic (BLOOD GLUCOSE TEST) test strip Test blood sugar(s) 2 times daily. Dx: Type 2 DM - Uncontrolled E11.65 Insulin: Yes hydrOXYzine HCl (ATARAX) 25 mg tablet Take 1 tablet by mouth every 6 hours as needed for anxiety. Cholecalciferol, Vitamin D3, (VITAMIN D-3) 50 mcg (2,000 unit) cap Take 1 capsule by mouth once daily. COMPOUNDED PRESCRIPTION Diabetic shoes cyclobenzaprine (FLEXERIL) 5 mg tablet Take 1 tablet by mouth at bedtime as needed. sertraline (ZOLOFT) 50 mg tablet Take 1 tablet by mouth once daily. FAMILY HISTORY Problem Relation Age of Onset Arthritis Mother Diabetes Mother Hypertension Mother Hyperlipidemia Mother Social History Tobacco Use Smoking status: Never Smokeless tobacco: Never Vaping Use Vaping status: Never Used Substance Use Topics Alcohol use: No Drug use: No Review of Systems Gastrointestinal: (-) bowel incontinence Genitourinary: (+) urinary frequency, (+) urinary incontinence, (-) dysuria, (-) (more content not included)... Normal [facility] XR LUMBAR 3V AP/LAT/L5-S1on 04-20-2025 XR LUMBAR 3V AP/LAT/L5-S1 * * *Final Report* * * DATE OF EXAM: Apr 20 2025 4:20PM WOX [id number] - XR LUMBAR 3V AP/LAT/L5-S1 / PROCEDURE REASON: Acute midline low back pain without sciatica * * * * Physician Interpretation * * * * PROCEDURE: Lumbar spine INDICATION: .Acute midline low back pain without sciatica TECHNIQUE: XR LUMBAR 3V AP/LAT/L5-S1 COMPARISON: None FINDINGS: Mild levoscoliosis. Minimal L4-5 anterolisthesis with mild degenerative disc disease. Advanced degenerative disc disease at T12-L1. Lower lumbar facet arthrosis. No pars defects. Sacroiliac joints are unremarkable. IMPRESSION: Degenerative changes. No acute abnormality. 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 Transcribe Date/Time: Apr 20 2025 4:33P Dictated by : KRISTAL LARKIN MD This examination was interpreted and the report reviewed and electronically signed by: KRISTAL LARKIN MD on Apr 20 2025 4:34PM EST [id number] CN Normal [facility] XR Lumbar spine 3 Viewson IMPRESSION: Degenerative changes. No acute abnormality. 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 Transcribe Date/Time: Apr 20 2025 4:33P Dictated by : KRISTAL LARKIN MD This examination was interpreted and the report reviewed and electronically signed by: KRISTAL LARKIN MD on Apr 20 2025 4:34PM EST DIVISION OF RADIOLOGY * * *Final Report* * * DATE OF EXAM: Apr 20 2025 4:20PM WOX 5228 - XR LUMBAR 3V AP/LAT/L5-S1 / PROCEDURE REASON: Acute midline low back pain without sciatica * * * * Physician Interpretation * * * * PROCEDURE: Lumbar spine INDICATION: .Acute midline low back pain without sciatica TECHNIQUE: XR LUMBAR 3V AP/LAT/L5-S1 COMPARISON: None FINDINGS: Mild levoscoliosis. Minimal L4-5 anterolisthesis with mild degenerative disc disease. Advanced degenerative disc disease at T12-L1. Lower lumbar facet arthrosis. No pars defects. Sacroiliac joints are unremarkable. DIVISION OF RADIOLOGY Provider, [facility] [place] - 04/20/2025 * * *Final Report* * * DATE OF EXAM: Apr 20 2025 4:20PM WOX 5228 - XR LUMBAR 3V AP/LAT/L5-S1 / PROCEDURE REASON: Acute midline low back pain without sciatica * * * * Physician Interpretation * * * * PROCEDURE: Lumbar spine INDICATION: .Acute midline low back pain without sciatica TECHNIQUE: XR LUMBAR 3V AP/LAT/L5-S1 COMPARISON: None FINDINGS: Mild levoscoliosis. Minimal L4-5 anterolisthesis with mild degenerative disc disease. Advanced degenerative disc disease at T12-L1. Lower lumbar facet arthrosis. No pars defects. Sacroiliac joints are unremarkable. IMPRESSION IMPRESSION: Degenerative changes. No acute abnormality. 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: [facility] Transcribe Date/Time: Apr 20 2025 4:33P Dictated by : KRISTAL LARKIN MD This examination was interpreted and the report reviewed and electronically signed by: KRISTAL LARKIN MD on Apr 20 2025 4:34PM [facility] Radiology Study observation (narrative) [facility] XR Lumbar spine 3 ViewsOrder ed By: [facility] Provider on 04-20-2025 [facility] GAMALIEL SCREENING W TOMOon 01-30 GAMALIEL SCREENING W DANE * * *Final Report* * * DATE OF EXAM: 2025 10:21AM [facility] 0582 - GAMALIEL SCREENING W DANE / PROCEDURE REASON: Visit for screening mammogram * * * * Physician Interpretation * * * * RESULT: [place] [address] [address] [id number] #[id number] - GAMALIEL SCREENING W DANE HISTORY: 60 year-old patient seen for screening. Patient is asymptomatic in both breasts. Patient states no personal history of breast cancer. The patient has a family history of breast and ovarian cancer. COMPARISON STUDIES: The present examination has been compared to prior imaging studies dated 12/04/2020 (mammogram), 12/16/2021 (mammogram), 01/05/2023 (mammogram) and 01/11/2024 (mammogram). MAMMOGRAM TECHNIQUE: The study was acquired using full field digital technology and interpreted from soft copy. Digital Breast Tomosynthesis (DBT) images were obtained and used to assist in the interpretation of this examination. MAMMOGRAM FINDINGS: There are scattered areas of fibroglandular density. No suspicious masses, calcifications or other abnormalities are seen in either breast. There are no significant interval changes. IMPRESSION: There is no mammographic evidence of malignancy in either breast. Routine screening mammogram is recommended. Annual mammogram will be due in 1 year. BI-RADS Category 1: Negative RISK: Based on the Tyrer-Cuzick (TC) risk assessment model, this patient has a 9.8% lifetime risk of developing breast cancer, meaning they are at average risk for developing breast cancer. However, this is only an estimate based on available history provided on the patient's questionnaire. We encourage all patients to talk with their providers about these results, further recommendations for managing breast health, and appropriate supplemental screening options if the patient has dense breast tissue. Interpreting Radiologist: Batsheva Haile M.D. Electronically signed on: 01/31/2025 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: ANDREW Transcribe Date/Time: 2025 10:09A Dictated by: BATSHEVA HAILE MD This examination was interpreted and the report reviewed and electronically signed by: BATSHEVA HAILE MD on Jan 31 2025 7:38AM EST [id number] CN Normal [facility] US KIDNEY/BLADDERon 01-24-20 25 US KIDNEY/BLADDER * * *Final Report* * * DATE OF EXAM: Jan 23 2025 1:25PM U 1055 - US KIDNEY/BLADDER / PROCEDURE REASON: Stage 3a chronic kidney disease (HCC) * * * * Physician Interpretation * * * * EXAMINATION: RENAL ULTRASOUND CLINICAL HISTORY: Stage IIIa chronic kidney disease TECHNIQUE: Sonography of the kidneys and urinary bladder was performed. Images were obtained and stored in a permanent archive and interpreted remotely. MQ: UR_1 COMPARISON: None RESULT: Right Kidney: -Renal length: 10.2 cm -Parenchyma: Normal parenchymal echogenicity. Normal parenchymal thickness. -Collecting system: No hydronephrosis. -Calculus: No echogenic, shadowing calculus. -Lesion: None. Left Kidney: -Renal length: 10.0 cm -Parenchyma: Normal parenchymal echogenicity. Normal parenchymal thickness. -Collecting system: No hydronephrosis. -Calculus: No echogenic, shadowing calculus. -Lesion: None. Bladder: Decompressed and not evaluated. 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: [employer] Transcribe Date/Time: Jan 24 2025 3:37P Dictated by : DANIELLA PHILLIPS MD This examination was interpreted and the report reviewed and electronically signed by: DANIELLA PHILLIPS MD on Jan 24 2025 3:57PM EST [id number] CN Normal [facility] CNPNon 01-17-2025 CNPN Telephone (FAMPWS) ARCENIO RAND ([id number]) 1965 F Date Time Provider Department 01/17/25 RANJEET GOODWIN [facility] During your visit today, we recorded the following information about you: Ranjeet Goodwin MD 01/17/2025 8:14 AM Signed Repeat kidney function shows her kidneys have slowed down a little on the microscopic level. It is not at a dangerous level and likely related to her dm and bp but I want to make sure we dont need to do anything else. Check renal us Check bmp and ua in one month. Avoid things like advil or aleve. Estrella Cutler MA 01/17/2025 1:23 PM Signed Spoke with Carter, patients ekg monitor tech. Informed of results. She verbalized understanding. Transferred to scheduling for renal US. Patient takes Celebrex daily. Carter wants to know if this should be discontinued? CARITO Wiley William J, MD 01/17/2025 1:45 PM Signed Please hold it Melissa Ohara LPN 01/17/2025 1:57 PM Signed Carter notified of 's message in regards to holding celebrex. Carter is asking if there are any other meds that should be held. HALEY Banda William J, MD 01/17/2025 2:09 PM Signed Not for now Estrella Cutler MA 01/17/2025 2:22 PM Signed Informed. Estrella Cutler MA Allergies As of Date: 01/17/2025 Noted Allergy Reaction AMOXICILLIN 07/15/2018 14 - Other: See Comments BLEACH (SODIUM HYPOCHLORITE) 04/04/2019 4 - Hives PENICILLINS 07/15/2018 14 - Other: See Comments SULFA (SULFONAMIDE ANTIBIOTICS) 04/12/2019 2 - Rash Comments: AND dry heaves. Date Reviewed: 01/16/2025 Reviewed by: Rissa Birch LPN - Fully Assessed Reason for Visit: Results [95] Primary Visit Diagnosis:Stage 3a chronic kidney disease (HCC) [N18.31] Order(s):BASIC METABOLIC PANEL [SQBMP] Order #: [id number] FUTURE URINALYSIS, WITH MICROSCOPIC [SQUAWMIC] Order #: [id number] FUTURE KIDNEY/BLADDER [[id number]] Order #: [id number] FUTURE Prescriptions as of 01/17/2025 - Insulin [place], Disposable, (BD ULTRA-FINE ROSALIE PEN NEEDLE) 32 gauge x 5/32 Use to inject insulin once daily as directed - Lancets One Touch Test blood sugar(s) 2 times daily. Dx: Type 2 DM - Controlled E11.9 Insulin: Yes - DULoxetine (CYMBALTA) 60 mg capsule Take 1 capsule by mouth once daily. - atorvastatin (LIPITOR) 20 mg tablet Take 1 tablet by mouth daily at bedtime. For cholesterol. - atenolol (TENORMIN) 100 mg tablet Take 1 tablet by mouth once daily. - empagliflozin (JARDIANCE) 25 mg tablet Take 1 tablet by mouth once daily. - estradiol (ESTRACE) 1 mg tablet Take 1 tablet by mouth once daily. - metFORMIN ER (GLUCOPHAGE XR) 500 mg 24 hr tablet Take 2 tablet by mouth twice daily with food. - SITagliptin phosphate (JANUVIA) 100 mg tablet Take 1 tablet by mouth once daily. - CPAP/BIPAP/OTHER autoCPAP 5-12 cmH2O DME [employer] - levothyroxine (SYNTHROID) 50 mcg tablet Take 1 tablet by mouth once daily. Take on empty stomach. For Thyroid. - aspirin, enteric coated (ASPIRIN, ENTERIC COATED) 81 mg EC tablet Take 1 tablet by mouth once daily. (self-started) - cyanocobalamin (VITAMIN B-12) 1,000 mcg tab Take 1 tablet by mouth once daily. - multivitamin-ferrous fumarate-folic acid (CENTRUM) Take 1 tablet by mouth once daily. - pioglitazone (ACTOS) 30 mg tablet Take 1 tablet by mouth once daily. - lisinopril (ZESTRIL) 40 mg tablet Take 1 tablet by mouth once daily. - omeprazole (PRILOSEC) 20 mg capsule Take 2 capsules by mouth once daily. - insulin glargine 100 unit/mL (3 mL) Inject 32 Units subcutaneously every morning. - blood sugar diagnostic (BLOOD GLUCOSE TEST) test strip Test blood sugar(s) 2 times daily. Dx: Type 2 DM - Controlled E11.9 Insulin: Yes - chlorthalidone (HYGROTON) 25 mg tablet Take 1 tablet by mouth once daily. - nystatin (MYCOSTATIN) cream Apply 1 application to affected area two times a day. On left foot - triamcinolone acetonide (KENALOG) 0.1 % ointment Apply to affected area twice daily. X 2 weeks; then take a break X 1 week. If still present, then restart X 2 more weeks. - sertraline (ZOLOFT) 50 mg tablet Take 1 tablet by mouth once daily. - blood sugar diagnostic (BLOOD GLUCOSE TEST) test strip Test blood sugar(s) 2 times daily. Dx: Type 2 DM - Uncontrolled E11.65 Insulin: Yes - hydrOXYzine HCl (ATARAX) 25 mg tablet Take 1 tablet by mouth every 6 hours as needed for anxiety. - Cholecalciferol, Vitamin D3, (VITAMIN D-3) 50 mcg (2,000 unit) cap Take 1 capsule by mouth once daily. - COMPOUNDED PRESCRIPTION Diabetic shoes Problem List As Of Date 01/17/2025 Noted Resolved Arthralgia [M25.50] 07/15/2018 11/10/2022 Hypothyroidism [E03.9] 07/15/2018 Insomnia [G47.00] 07/15/2018 Vitamin B 12 deficiency [E53.8] 07/15/2018 Depression [F32.A] 07/15/2018 Essential hypertension, benign [I10] 07/15/2018 Hyperlipemia [E78.5] 07/15/2018 Type II diabetes mellit (more content not included)... Normal [facility] Basic metabolic 2000 panelon 01-16-2025 Anion gap [Moles/Vol] 13 mmol/L Normal 8-15 [facility] Comment on above: Order Comment: Speci men Type: BLOOD SPECIMENOrdering Facility: [facility] Address: [address] [place] [address] Performed By: #### 2 4321-2 ####[facility] LABCLIA [id number] [place] [address] [place] Calcium [Mass/Vol] 9.2 mg/dL Normal 8.5-10.2 [facility] Comment on above: Order Comment: Speci men Type: BLOOD SPECIMENOrdering Facility: [facility] Address: [address] [place], [place] [address] Performed By: #### 2 4321-2 ####[facility] LABCLIA [id number] [place] [address] [place] Chloride [Moles/Vol] 99 mmol/L Normal 98-107 [facility] Comment on above: Order Comment: Speci men Type: BLOOD SPECIMENOrdering Facility: [facility] Address: [address] [place] [address] Performed By: #### 2 4321-2 ####[facility] LABCLIA [id number] [place] [id number] [place] CO2 [Moles/Vol] 25 mmol/L Normal 22-30 [facility] Comment on above: Order Comment: Speci men Type: BLOOD SPECIMENOrdering Facility: [facility] Address: [address] [place] [id number] Performed By: #### 2 4321-2 ####[facility] LABCLIA [id number] [address] [address] [place] Creatinine [Mass/Vol] 1.11 mg/dL High 0.58-0.96 [facility] Comment on above: Order Comment: Conner saleh Type: BLOOD SPECIMENOrdering Facility: [facility] Address: [address] [place] [address] Performed By: #### 2 4321-2 ####[facility] LABIA [id number] [place] [address] [place] Creatinine and Glomerular filtration rate.predicted panel (S/P/Bld) 58 mL/min/1.73m??? Low >=60 [facility] Comment on above: Order Comment: Conner saleh Type: BLOOD SPECIMENOrdering Facility: [facility] Address: [address] [place] [address] Result Comment: Ramya mated Glomerular Filtration Rate (eGFR) is calculated using the 2020 CKD-EPI creatinine equation. This equation utilizes serum creatinine, sex, and age as parameters. The creatinine assay has traceable calibration to isotope dilution-mass spectrometry. Refer to KDIGO guidelines for clinical interpretation. In patients with unstable renal function, e.g. those with acute kidney injury, the eGFR may not accurately reflect actual GFR. Performed By: #### 2 4321-2 ####[facility] LABIA [id number] [address] [address] [place] Glucose [Mass/Vol] 138 mg/dL High 74-99 [facility] Comment on above: Order Comment: Conner saleh Type: BLOOD SPECIMENOrdering Facility: [facility] Address: [address] [place] [id number] Result Comment: The [place] Diabetes Association (ADA) provides guidance for cutoff values for fasting glucose and random glucose. The ADA defines fasting as no caloric intake for at least 8 hours. Fasting plasma glucose results between 100 to 125 mg/dL indicate increased risk for diabetes (prediabetes). Fasting plasma glucose results greater than or equal to 126 mg/dL meet the criteria for diagnosis of diabetes. In the absence of unequivocal hyperglycemia, results should be confirmed by repeat testing. In a patient with classic symptoms of hyperglycemia or hyperglycemic crisis, random plasma glucose results greater than or equal to 200 mg/dL meet the criteria for diagnosis of diabetes. Reference: Standards of Medical Care in Diabetes 2016, [place] [employer] Association. Diabetes Care. 2016.39(Suppl 1). Performed By: #### 2 4321-2 ####[facility] LABIA [id number] [place] [address] [place] Potassium [Moles/Vol] 4.3 mmol/L Normal 3.7-5.1 [facility] Comment on above: Order Comment: Conner saleh Type: BLOOD SPECIMENOrdering Facility: [facility] Address: [address] [place] [address] Performed By: #### 2 4321-2 ####[facility] [id number] [place] [address] [place] Sodium [Moles/Vol] 137 mmol/L Normal 136-144 [facility] Comment on above: Order Comment: Conner saleh Type: BLOOD SPECIMENOrdering Facility: [facility] Address: [address] [place] [address] Performed By: #### 2 4321-2 ####[facility] [id number] [place] [address] [place] Urea nitrogen [Mass/Vol] 25 mg/dL High 7-21 [facility] Comment on above: Order Comment: Conner saleh Type: BLOOD SPECIMENOrdering Facility: [facility] Address: [address] [place] [address] Performed By: #### 2 4321-2 ####[facility]UN[facility] [id number] [place] [id number] [place] CNOVon 01-16-2025 CNOV Office Visit (FAMPWS) EMERYARCENIO ([id number]) 1965 F Date Time Provider Department 01/16/25 10:40 AM RANJEET GOODWIN During your visit today, we recorded the following information about you: Pulse Blood pressure Weight 61/minute 122/72 78 kg Ranjeet Goodwin MD 01/16/2025 11:49 AM Signed Patient presents with: 6 Month Exam HPI: Patient presents today for office visit for follow up. DM: Reports overall feeling well. Medication side effects: No. Home sugar check frequency/results:tw ice daily using insulin Hypoglycemic spells: No. Watching diet: Yes. Unexpected weight loss: No. Polyuria, polydipsia: No. Vision Changes: No. Foot lesions or numbness or pain: does have a toe to check hit it on tand Thursday. No pain. In the morning when she wakes up she notices her feet are red. No redness or temp changes. HTN: Brings reading to office. No chest pain, shortness of breath, edema, palpitations. No gerd. Still using cpap. Benefiting from its use. Latest Ref Rng 01/10/2025 WBC 3.70 - 11.00 k/uL 9.03 RBC 3.90 - 5.20 m/uL 4.29 Hemoglobin 11.5 - 15.5 g/dL 12.5 Hematocrit 36.0 - 46.0 % 39.5 MCV 80.0 - 100.0 fL 92.1 MCH 26.0 - 34.0 pg 29.1 MCHC 30.5 - 36.0 g/dL 31.6 RDW-CV 11.5 - 15.0 % 14.0 Platelet Count 150 - 400 k/uL 315 MPV 9.0 - 12.7 fL 10.3 Neut% % 67.1 Abs Neut (ANC) 1.45 - 7.50 k/uL 6.06 Lymph% % 21.7 Abs Lymph 1.00 - 4.00 k/uL 1.96 Tyrrell% % 8.1 Abs Tyrrell <0.87 k/uL 0.73 Eosin% % 2.1 Abs Eosin <0.46 k/uL 0.19 Baso% % 0.7 Abs Baso <0.11 k/uL 0.06 Immature Gran % % 0.3 IMMATURE GRANS (ABS) <0.10 k/uL 0.03 NRBC /100 WBC 0.0 Absolute nRBC <0.01 k/uL <0.01 DTYPE Auto Protein, Total 6.3 - 8.0 g/dL 7.0 Albumin 3.9 - 4.9 g/dL 4.1 Calcium 8.5 - 10.2 mg/dL 9.5 Bilirubin, Total 0.2 - 1.3 mg/dL 0.4 Alkaline Phosphatase 34 - 123 U/L 54 AST 13 - 35 U/L 17 ALT 7 - 38 U/L 15 Glucose 74 - 99 mg/dL 154 (H) BUN 7 - 21 mg/dL 28 (H) Creatinine 0.58 - 0.96 mg/dL 1.21 (H) Sodium 136 - 144 mmol/L 140 Potassium 3.7 - 5.1 mmol/L 4.0 Chloride 98 - 107 mmol/L 99 CO2 22 - 30 mmol/L 26 Anion Gap 8 - 15 mmol/L 15 eGFR >=60 mL/min/1.73m? 52 (L) Cholesterol, Total <200 mg/dL 183 Triglyceride <150 mg/dL 316 (H) HDL Cholesterol >39 mg/dL 47 Non HDL Cholesterol <130 mg/dL 136 (H) Fasting Time hrs 12 VLDL Cholesterol <30 mg/dL 63 (H) TC:HDL Ratio <5.10 3.89 LDL Cholesterol <100 mg/dL 73 LDL:HDL Ratio <2.54 1.55 Creatinine, Ur Random (UCRR) 20.0 - 300.0 mg/dL 96.2 Albumin, Urine Random mg/L 17.9 Albumin/Creat Ratio <30 mg/g 19 Hemoglobin A1C 4.3 - 5.6 % 7.0 (H) Estimated Average Glucose mg/dL 154 Vitamin B12 232 - 1,245 pg/mL 1,236 Legend: (H) High (L) LowEDICATIONS: Current Outpatient Medications Medication Sig celecoxib (CELEBREX) 200 mg capsule Take 1 capsule by mouth once daily. DULoxetine (CYMBALTA) 60 mg capsule Take 1 capsule by mouth once daily. atorvastatin (LIPITOR) 20 mg tablet Take 1 tablet by mouth daily at bedtime. For cholesterol. empagliflozin (JARDIANCE) 25 mg tablet Take 1 tablet by mouth once daily. estradiol (ESTRACE) 1 mg tablet Take 1 tablet by mouth once daily. metFORMIN ER (GLUCOPHAGE XR) 500 mg 24 hr tablet Take 2 tablet by mouth twice daily with food. SITagliptin phosphate (JANUVIA) 100 mg tablet Take 1 tablet by mouth once daily. levothyroxine (SYNTHROID) 50 mcg tablet Take 1 tablet by mouth once daily. Take on empty stomach. For Thyroid. aspirin, enteric coated (ASPIRIN, ENTERIC COATED) 81 mg EC tablet Take 1 tablet by mouth once daily. (self-started) cyanocobalamin (VITAMIN B-12) 1,000 mcg tab Take 1 tablet by mouth once daily. multivitamin-ferrous fumarate-folic acid (CENTRUM) Take 1 tablet by mouth once daily. pioglitazone (ACTOS) 30 mg tablet Take 1 tablet by mouth once daily. lisinopril (ZESTRIL) 40 mg tablet Take 1 tablet by mouth once daily. omeprazole (PRILOSEC) 20 mg capsule Take 2 capsules by mouth once daily. chlorthalidone (HYGROTON) 25 mg tablet Take 1 tablet by mouth once daily. hydrOXYzine HCl (ATARAX) 25 mg tablet Take 1 tablet by mouth every 6 hours as needed for anxiety. Cholecalciferol, Vitamin D3, (VITAMIN D-3) 50 mcg (2,000 unit) cap Take 1 capsule by mouth once daily. atenolol (TENORMIN) 100 mg tablet Take 1 tablet by mouth once daily. CPAP/BIPAP/OTHER autoCPAP 5-12 cmH2O DME [employer] Insulin [place], Disposable, (BD ULTRA-FINE ROSALIE PEN NEEDLE) 32 gauge x 5/32 Use to inject insulin once daily as directed Lancets One Touch Test blood sugar(s) 2 times daily. Dx: Type 2 DM - Controlled E11.9 Insulin: Yes insulin glargine 100 unit/mL (3 mL) Inject 32 Units subcutaneously every morning. blood sugar diagnostic (BLOOD GLUCOSE TEST) test strip Test blood sugar(s) 2 times daily. Dx: Type 2 DM - Controlled E11.9 Insulin: Yes nystatin (MYCOSTATIN) cream Apply 1 applicat (more content not included)... Normal [facility] ALBUMIN/CREATININE RATIO, UR INEon 01-10-2025 Albumin DL <= 20 mg/L (U) [Mass/Vol] 17.9 mg/L Normal [facility] Comment on above: Order Comment: Speci men Type: URINE SPECIMENOrdering Facility: [facility] Address: [address] [place] [address] Performed By: #### U ACR ####[facility] LABCLIA [id number] [place] [id number] [place] Albumin/Creatinine (U) [Mass ratio] 19 mg/g Normal <30 [facility] Comment on above: Order Comment: Speci men Type: URINE SPECIMENOrdering Facility: [facility] Address: [address] [place] [address] Result Comment: Adul t Male and Female Nephrotic Criteria: <30 mg/g is considered normal to mildly increased 30-300 mg/g is considered moderately increased >300 mg/g is considered severely increased KDIGO. (2013). KDIGO 2012 Clinical Practice Guideline for the Evaluation and Management of Chronic Kidney Disease. Official Journal of the International Society of Nephrology, 3(1), 1-150. Performed By: #### U ACR ####[facility] LABCLIA [id number] [place] [address] [place] Creatinine (U) [Mass/Vol] 96.2 mg/dL Normal 20.0-300.0 [facility] Comment on above: Order Comment: Speci men Type: URINE SPECIMENOrdering Facility: [facility] Address: [address] [place] [address] Performed By: #### U ACR ####[facility] LABCLIA [id number] [place] [id number] [place] CBC W Auto Differential pane l (Bld)on 01-10-2025 Basophils (Bld) [#/Vol] 0.06 10*3/uL Normal <0.11 [facility] Comment on above: Order Comment: Speci men Type: BLOOD SPECIMENOrdering Facility: [facility] Address: [address] [place] [address] Performed By: #### 5 7021-8 ####[facility] LABCLIA [id number] [place] [address] [place] Basophils/100 WBC (Bld) 0.7 % Normal [facility] Comment on above: Order Comment: Speci men Type: BLOOD SPECIMENOrdering Facility: [facility] Address: [address] [place] [address] Performed By: #### 5 7021-8 ####[facility] LABCLIA [id number] [place] [address] [place] Differential cell count method Nom (Bld) Auto Normal [facility] Comment on above: Order Comment: Speci men Type: BLOOD SPECIMENOrdering Facility: [facility] Address: [address] [place] [address] Performed By: #### 5 7021-8 ####[facility] LABCLIA [id number] [place] [address] [place] Eosinophils (Bld) [#/Vol] 0.19 10*3/uL Normal <0.46 [facility] Comment on above: Order Comment: Speci men Type: BLOOD SPECIMENOrdering Facility: [facility] Address: [address] [place] [address] Performed By: #### 5 7021-8 ####[facility] LABCLIA [id number] [place] [address] [place] Eosinophils/100 WBC (Bld) 2.1 % Normal [facility] Comment on above: Order Comment: Speci men Type: BLOOD SPECIMENOrdering Facility: [facility] Address: [address] [place] [address] Performed By: #### 5 7021-8 ####[facility] LABCLIA [id number] [place] [address] [place] Erythrocyte distribution width (RBC) [Ratio] 14.0 % Normal 11.5-15.0 [facility] Comment on above: Order Comment: Speci men Type: BLOOD SPECIMENOrdering Facility: [facility] Address: [address] [place] [address] Performed By: #### 5 7021-8 ####[facility] LABCLIA [id number] [place] [address] [place] Hematocrit (Bld) [Volume fraction] 39.5 % Normal 36.0-46.0 [facility] Comment on above: Order Comment: Speci men Type: BLOOD SPECIMENOrdering Facility: [facility] Address: [address] [place] [address] Performed By: #### 5 7021-8 ####[facility] LABCLIA [id number] [place] [address] [place] Hemoglobin (Bld) [Mass/Vol] 12.5 g/dL Normal 11.5-15.5 [facility] Comment on above: Order Comment: Speci men Type: BLOOD SPECIMENOrdering Facility: [facility] Address: [address] [place] [address] Performed By: #### 5 7021-8 ####[facility] LABCLIA [id number] [place] [address] [place] Immature granulocytes (Bld) [#/Vol] 0.03 10*3/uL Normal <0.10 [facility] Comment on above: Order Comment: Speci men Type: BLOOD SPECIMENOrdering Facility: [facility] Address: [address] [place] [address] Performed By: #### 5 7021-8 ####[facility] LABCLIA [id number] [place] [id number] [place] Immature granulocytes/100 WBC (Bld) 0.3 % Normal [facility] Comment on above: Order Comment: Speci men Type: BLOOD SPECIMENOrdering Facility: [facility] Address: [address] [place] [address] Performed By: #### 5 7021-8 ####[facility] LABCLIA [id number] [place] [address] [place] Lymphocytes (Bld) [#/Vol] 1.96 10*3/uL Normal 1.00-4.00 [facility] Comment on above: Order Comment: Speci men Type: BLOOD SPECIMENOrdering Facility: [facility] Address: [address] [place] [address] Performed By: #### 5 7021-8 ####[facility] LABIA [id number] [place] [address] [place] Lymphocytes/100 WBC (Bld) 21.7 % Normal [facility] Comment on above: Order Comment: Speci men Type: BLOOD SPECIMENOrdering Facility: [facility] Address: [address] [place] [address] Performed By: #### 5 7021-8 ####[facility] LABIA [id number] [place] [address] [place] MCH (RBC) [Entitic mass] 29.1 pg Normal 26.0-34.0 [facility] Comment on above: Order Comment: Speci men Type: BLOOD SPECIMENOrdering Facility: [facility] Address: [address] [place] [address] Performed By: #### 5 7021-8 ####[facility] LABIA [id number] [place] [address] [place] MCHC (RBC) [Mass/Vol] 31.6 g/dL Normal 30.5-36.0 [facility] Comment on above: Order Comment: Speci men Type: BLOOD SPECIMENOrdering Facility: [facility] Address: [address] [place] [address] Performed By: #### 5 7021-8 ####[facility] LABIA [id number] [place] [id number] [place] MCV (RBC) [Entitic vol] 92.1 fL Normal 80.0-100.0 [facility] Comment on above: Order Comment: Speci men Type: BLOOD SPECIMENOrdering Facility: [facility] Address: [address] [place] [address] Performed By: #### 5 7021-8 ####[facility] LABCLIA [id number] [address] [address] [place] Monocytes (Bld) [#/Vol] 0.73 10*3/uL Normal <0.87 [facility] Comment on above: Order Comment: Speci men Type: BLOOD SPECIMENOrdering Facility: [facility] Address: [address] [place] [address] Performed By: #### 5 7021-8 ####[facility] LABCLIA [id number] [place] [address] [place] Monocytes/100 WBC (Bld) 8.1 % Normal [facility] Comment on above: Order Comment: Speci men Type: BLOOD SPECIMENOrdering Facility: [facility] Address: [address] [place] [address] Performed By: #### 5 7021-8 ####[facility] LABCLIA [id number] [place] [address] [place] Neutrophils (Bld) [#/Vol] 6.06 10*3/uL Normal 1.45-7.50 [facility] Comment on above: Order Comment: Speci men Type: BLOOD SPECIMENOrdering Facility: [facility] Address: [address] [place] [address] Performed By: #### 5 7021-8 ####[facility] LABCLIA [id number] [place] [id number] [place] Neutrophils/100 WBC (Bld) 67.1 % Normal [facility] Comment on above: Order Comment: Speci men Type: BLOOD SPECIMENOrdering Facility: [facility] Address: [address] [place] [address] Performed By: #### 5 7021-8 ####[facility] LABCLIA [id number] [address] [place] [address] [place] Nucleated RBC (Bld) [#/Vol] 10*3/uL Normal <0.01 [facility] Comment on above: Order Comment: Speci men Type: BLOOD SPECIMENOrdering Facility: [facility] Address: [address] [place] [address] Performed By: #### 5 7021-8 ####[facility] LABCLIA [id number] [address], [place] [address] [place] Nucleated RBC/100 WBC (Bld) [Ratio] 0.0 /100 WBC Normal [facility] Comment on above: Order Comment: Speci men Type: BLOOD SPECIMENOrdering Facility: [facility] Address: [address] [place] [address] Performed By: #### 5 7021-8 ####[facility] LABIA [id number] [address], [place] [address] [place] Platelet mean volume (Bld) [Entitic vol] 10.3 fL Normal 9.0-12.7 [facility] Comment on above: Order Comment: Speci men Type: BLOOD SPECIMENOrdering Facility: [facility] Address: [address] [place] [address] Performed By: #### 5 7021-8 ####[facility] LABCLIA [id number] [place] [address] [place] Platelets (Bld) [#/Vol] 315 10*3/uL Normal 150-400 [facility] Comment on above: Order Comment: Speci men Type: BLOOD SPECIMENOrdering Facility: [facility] Address: [address] [place] [address] Performed By: #### 5 7021-8 ####[facility] LABCLIA [id number] [address] [place] [address] [place] RBC (Bld) [#/Vol] 4.29 10*6/uL Normal 3.90-5.20 [facility] Comment on above: Order Comment: Speci men Type: BLOOD SPECIMENOrdering Facility: [facility] Address: [address] [place] [address] Performed By: #### 5 7021-8 ####[facility] LABCLIA [id number] [facility] [id number], [place] [address] [place] WBC (Bld) [#/Vol] 9.03 10*3/uL Normal 3.70-11.00 [facility] Comment on above: Order Comment: Speci men Type: BLOOD SPECIMENOrdering Facility: [facility] Address: [address] [place] [address] Performed By: #### 5 7021-8 ####[facility] LABCLIA [id number] [facility] [id number], [place] [address] [place] Comprehensive metabolic 2000 panelon 01-10-2025 Albumin [Mass/Vol] 4.1 g/dL Normal 3.9-4.9 [facility] Comment on above: Order Comment: Speci men Type: BLOOD SPECIMENOrdering Facility: [facility] Address: [address] [place] [address] Performed By: #### 2 4323-8, 31607-7, 2132-06 ####[facility] LABCLIA [id number] [facility] [address] [place] [address] [place] ALP [Catalytic activity/Vol] 54 U/L Normal 34-123 [facility] Comment on above: Order Comment: Speci men Type: BLOOD SPECIMENOrdering Facility: [facility] Address: [address] [place] [address] Performed By: #### 2 4323-8, 54781-6, 2132-06 ####[facility] LABCLIA [id number] [id number], [place] [address] [place] ALT [Catalytic activity/Vol] 15 U/L Normal 7-38 [facility] Comment on above: Order Comment: Speci men Type: BLOOD SPECIMENOrdering Facility: [facility] Address: [address] [place], [place] [address] Performed By: #### 2 4323-8, , 2132-06 ####[facility] LABCLIA [id number] [address] [address] [place] Anion gap [Moles/Vol] 15 mmol/L Normal 8-15 [facility] Comment on above: Order Comment: Speci men Type: BLOOD SPECIMENOrdering Facility: [facility] Address: [address] [place], [place] [address] Performed By: #### 2 4323-8, , 2132-06 ####[facility] LABCLIA [id number] [place] [id number] [place] AST [Catalytic activity/Vol] 17 U/L Normal 13-35 [facility] Comment on above: Order Comment: Speci men Type: BLOOD SPECIMENOrdering Facility: [facility] Address: [address] [place], [place] [address] Performed By: #### 2 4323-8, , 2132-06 ####[facility] LABIA [id number] [place] [id number] [place] Bilirubin [Mass/Vol] 0.4 mg/dL Normal 0.2-1.3 [facility] Comment on above: Order Comment: Speci men Type: BLOOD SPECIMENOrdering Facility: [facility] Address: [address] [place], [place] [address] Performed By: #### 2 4323-8, 17171-1, 2132-06 ####[facility] LABIA [id number] [place] [id number] [place] Calcium [Mass/Vol] 9.5 mg/dL Normal 8.5-10.2 [facility] Comment on above: Order Comment: Speci men Type: BLOOD SPECIMENOrdering Facility: [facility] Address: [address] [place] [address] Performed By: #### 2 4323-8, 22813-7, 2132-06 ####[facility] LABCLIA [id number] [place] [id number] [place] Chloride [Moles/Vol] 99 mmol/L Normal 98-107 [facility] Comment on above: Order Comment: Speci men Type: BLOOD SPECIMENOrdering Facility: [facility] Address: [address] [place] [address] Performed By: #### 2 4323-8, 91687-4, 2132-06 ####[facility] LABCLIA [id number] [place] [address] [place] CO2 [Moles/Vol] 26 mmol/L Normal 22-30 [facility] Comment on above: Order Comment: Speci men Type: BLOOD SPECIMENOrdering Facility: [facility] Address: [address] [place] [address] Performed By: #### 2 4323-8, , 2132-06 ####[facility] LABIA [id number] [place] [address] [place] Creatinine [Mass/Vol] 1.21 mg/dL High 0.58-0.96 [facility] Comment on above: Order Comment: Speci men Type: BLOOD SPECIMENOrdering Facility: [facility] Address: [address] [place] [address] Performed By: #### 2 4323-8, 95176-6, 2132-06 ####[facility] LABIA [id number] [place] [id number] [place] Creatinine and Glomerular filtration rate.predicted panel (S/P/Bld) 52 mL/min/1.73m??? Low >=60 [facility] Comment on above: Order Comment: Speci men Type: BLOOD SPECIMENOrdering Facility: [facility] Address: [address] [place] [address] Result Comment: Ramya mated Glomerular Filtration Rate (eGFR) is calculated using the 2020 CKD-EPI creatinine equation. This equation utilizes serum creatinine, sex, and age as parameters. The creatinine assay has traceable calibration to isotope dilution-mass spectrometry. Refer to KDIGO guidelines for clinical interpretation. In patients with unstable renal function, e.g. those with acute kidney injury, the eGFR may not accurately reflect actual GFR. Performed By: #### 2 4323-8, 62902-1, 2132-06 ####[facility] LABIA [id number] [address] [address] [place] Glucose [Mass/Vol] 154 mg/dL High 74-99 [facility] Comment on above: Order Comment: Specjae saleh Type: BLOOD SPECIMENOrdering Facility: [facility] Address: [address] [place] [address] Result Comment: The [place] Diabetes Association (ADA) provides guidance for cutoff values for fasting glucose and random glucose. The ADA defines fasting as no caloric intake for at least 8 hours. Fasting plasma glucose results between 100 to 125 mg/dL indicate increased risk for diabetes (prediabetes). Fasting plasma glucose results greater than or equal to 126 mg/dL meet the criteria for diagnosis of diabetes. In the absence of unequivocal hyperglycemia, results should be confirmed by repeat testing. In a patient with classic symptoms of hyperglycemia or hyperglycemic crisis, random plasma glucose results greater than or equal to 200 mg/dL meet the criteria for diagnosis of diabetes. Reference: Standards of Medical Care in Diabetes 2016, [place] Diabetes Association. Diabetes Care. 2016.39(Suppl 1). Performed By: #### 2 4323-8, 08640-3, 2132-06 ####[facility] LABIA [id number] [address] [address] [place] Potassium [Moles/Vol] 4.0 mmol/L Normal 3.7-5.1 [facility] Comment on above: Order Comment: Walteri men Type: BLOOD SPECIMENOrdering Facility: [facility] Address: [address] [place] [id number] Performed By: #### 2 4323-8, , 2132-06 ####[facility] LABIA [id number] [address] [address] [place] Protein [Mass/Vol] 7.0 g/dL Normal 6.3-8.0 [facility] Comment on above: Order Comment: Speci men Type: BLOOD SPECIMENOrdering Facility: [facility] Address: [address] [place] [address] Performed By: #### 2 4323-8, , 2132-06 ####[facility] LABIA [id number] [place] [id number] [place] Sodium [Moles/Vol] 140 mmol/L Normal 136-144 [facility] Comment on above: Order Comment: Speci men Type: BLOOD SPECIMENOrdering Facility: [facility] Address: [address] [place] [address] Performed By: #### 2 4323-8, , 2132-06 ####[facility] [id number] [address] [address] [place] Urea nitrogen [Mass/Vol] 28 mg/dL High 7-21 [facility] Comment on above: Order Comment: Speci men Type: BLOOD SPECIMENOrdering Facility: [facility] Address: [address] [place] [address] Performed By: #### 2 4323-8, , 2132-06 ####[facility] LABIA [id number] [address] [address] [place] HbA1c (Bld)on 01-10-2025 Average glucose Estimated from glycated hemoglobin (Bld) [Mass/Vol] 154 mg/dL Normal [facility] Comment on above: Order Comment: Speci men Type: BLOOD SPECIMENOrdering Facility: [facility] Address: [address] [place], [place] [address] Result Comment: eAG: (Estimated average glucose) is a calculated value from HgbA1c and is medical customer service representative of the average blood glucose level in the last 2-3 month period. Performed By: #### 5 5454-3 ####[facility] LABCLIA [id number] [place] [address] [place] HbA1c (Bld) [Mass fraction] 7.0 % High 4.3-5.6 [facility] Comment on above: Order Comment: Conner saleh Type: BLOOD SPECIMENOrdering Facility: [facility] Address: [address] [place] [address] Result Comment: [place] Diabetes Association guidelines indicate that patients with HgbA1c in the range 5.7-6.4% are at increased risk for development of diabetes, and intervention by lifestyle modification may be beneficial. HgbA1c greater or equal to 6.5% is considered diagnostic of diabetes. Performed By: #### 5 5454-3 ####[facility] LABCLIA [id number] [place] [address] [place] Lipid 1996 panelon 5 Cholesterol [Mass/Vol] 183 mg/dL Normal <200 [facility] Comment on above: Order Comment: Conner saleh Type: BLOOD SPECIMENOrdering Facility: [facility] Address: [address] [place] [address] Result Comment: <200 mg/dL, Desirable 200-239 mg/dL, Borderline high >239 mg/dL, High Performed By: #### 2 4323-8, 12483-3, 9 ####[facility] LABIA [id number] [address] [place] Cholesterol in HDL [Mass/Vol] 47 mg/dL Normal >39 [facility] Comment on above: Order Comment: Conner saleh Type: BLOOD SPECIMENOrdering Facility: [facility] Address: [address] [place] [address] Result Comment: 40-5 9 mg/dL, Acceptable >59 mg/dL, High: Negative risk factor for coronary heart disease <40 mg/dL, Low: Positive risk factor for coronary heart disease Performed By: #### 2 4323-8, 55777-2, 2132-06 ####[facility] LABCLIA [id number] [address] [address] [place] Cholesterol in LDL [Mass/Vol] 73 mg/dL Normal <100 [facility] Comment on above: Order Comment: Speci men Type: BLOOD SPECIMENOrdering Facility: [facility] Address: [address] [place] [address] Result Comment: <100 mg/dL, Optimal 100-129 mg/dL, Near optimal/above optimal 130-159 mg/dL, Borderline high 160-189 mg/dL, High >189 mg/dL, Very high Secondary prevention optimal LDL Cholesterol levels are recommended to be < 70 mg/dL Performed By: #### 2 4323-8, , 2132-06 ####[facility] LABCLIA [id number] [address] [address] [place] Cholesterol in LDL/Cholesterol in HDL [Mass ratio] 1.55 {ratio} Normal <2.54 [facility] Comment on above: Order Comment: Speci men Type: BLOOD SPECIMENOrdering Facility: [facility] Address: [address] [place] [address] Result Comment: Refe latrell: 1. National Cholesterol Education Program ATP III Guideline At-A-Glance Quick Desk Reference: National Heart, Lung, and Blood [place]. National Institutes of Health. 2001: NIH Publication No. 01-3305. 2. An International Atherosclerosis Society position paper: global recommendations for the management of dyslipidemia: executive summary, Atherosclerosis. 2014: 232(2):410-413. Performed By: #### 2 4323-8, 14896-4, 2132-06 ####[facility] LABIA [id number] [address] [address] [place] Cholesterol in VLDL [Mass/Vol] 63 mg/dL High <30 [facility] Comment on above: Order Comment: Speci men Type: BLOOD SPECIMENOrdering Facility: [facility] Address: [address] [place] [address] Performed By: #### 2 4323-8, , 2132-06 ####[facility] LABCLIA [id number] [facility] [address] [place] [address] [place] Cholesterol non HDL [Mass/Vol] 136 mg/dL High <130 [facility] Comment on above: Order Comment: Speci men Type: BLOOD SPECIMENOrdering Facility: [facility] Address: [address] [place] [address] Result Comment: <130 mg/dL, Optimal 130-159 mg/dL, Near optimal/above optimal 160-189 mg/dL, Borderline high 190-219 mg/dL, High >219 mg/dL, Very high Secondary prevention optimal non HDL Cholesterol levels are recommended to be <100 mg/dL Performed By: #### 2 4323-8, , 2132-06 ####[facility] LABCLIA [id number] [address] [place] [address] [place] Cholesterol.total/Cho lesterol in HDL [Mass ratio] 3.89 {ratio} Normal <5.10 [facility] Comment on above: Order Comment: Speci men Type: BLOOD SPECIMENOrdering Facility: [facility] Address: [address] [place] [address] Performed By: #### 2 4323-8, , 2132-06 ####[facility] LABCLIA [id number] [address] [place] [address] [place] FASTING TIME 12 hrs Normal [facility] Comment on above: Order Comment: Speci men Type: BLOOD SPECIMENOrdering Facility: [facility] Address: [address] [place] [address] Performed By: #### 2 4323-8, , 2132-06 ####[facility] LABCLIA [id number] [facility] [address] [place] [address] [place] Triglyceride [Mass/Vol] 316 mg/dL High <150 [facility] Comment on above: Order Comment: Speci men Type: BLOOD SPECIMENOrdering Facility: [facility] Address: [address] [place] [address] Result Comment: <150 mg/dL, Normal 150-199 mg/dL, Borderline high 200-499 mg/dL, High >499 mg/dL, Very high Performed By: #### 2 4323-8, , 2132-06 ####[facility] LABCLIA [id number] [place] [address] [place] Vit [facility] Cobalamin (Vitamin B12) [Mass/Vol] 1236 pg/mL Normal 232-1245 [facility] Comment on above: Order Comment: Speci men Type: BLOOD SPECIMENOrdering Facility: [facility] Address: [address] [place] [address] Performed By: #### 2 4323-8, , 2132-06 ####[facility] LABCLIA [id number] [place] [address] [place] Bacteria Ur Culton 5 Bacteria identified Cx Nom (U) ORGANISM ID: 1 >=100,000 CFU/ml Klebsiella pneumoniae ORGANISM ID: 1 (KLEBSIELLA PNEUMONIAE) ANTIBIOTIC INTERPRETATION SOLA STATUS REFERENCE RANGE Ampicillin R >=32 F Susceptible <=8 , Intermediate >8 , Resistant >16 Cefazolin S <=4 F Susceptible 0-16 , Intermediate <0 or >16 , Resistant >16 For uncomplicated urinary tract infections, cefazolin results can be used to predict susceptibility or resistance to cephalexin. Ceftriaxone S <=1 F Susceptible <=1 , Intermediate >1 , Resistant >=4 Cefepime S <=1 F Susceptible <=2 , Susceptible-Dose Dependent >2 , Resistant >=16 Ertapenem S <=0.5 F Susceptible <=0.5 , Intermediate >.5 , Resistant >1 Meropenem S <=0.25 F Susceptible <=1 , Intermediate >1 , Resistant >2 Ampicillin/Sulbact S 8 F Susceptible <=8 , Intermediate >8 , Resistant >16 Piperacillin/Tazobac S 8 F Susceptible <16 , Susceptible-Dose Dependent >=16 , Resistant >=32 Gentamicin S <=1 F Susceptible <=2 , Intermediate >2 , Resistant >=8 Tobramycin S <=1 F Susceptible <4 , Intermediate >=4 , Resistant >=8 Trimeth sulfameth S <=20 F Susceptible <=40 , Resistant >40 Ciprofloxacin S <=0.25 F Susceptible <0.5 , Intermediate >=.5 , Resistant >=1 Nitrofurantoin I 64 F Susceptible <=32 , Intermediate >32 , Resistant >64 Abnormal [facility] Comment on above: Performed By: #### 6 30-4 ####[facility] [id number] [place] [id number] [place] CNOVon 12-26-2024 CNOV Office Visit ([facility]) ARCENIO RAND ([id number]) 1965 F Date Time Provider Department 12/26/24 12:00 PM ANGELO ETIENNE [facility] During your visit today, we recorded the following information about you: Temperature Pulse Respiration Blood pressure 97.6 degrees 64/minute 16/minute 110/68 Weight 78.2 kg Angelo Etienne PA-C 12/26/2024 12:30 PM Signed This note was created using [employer]. Subjective Arceino Rand is a 59 year old female. Patient is a 59-year-old female who is brought by caregiver for evaluation of urinary frequency that she has been experiencing for the past 1 day. Patient does have developmental delay but does answer questions appropriately. Patient also describes mild dysuria. Caregiver reports no fever and states that the patient has complained of no additional illness symptoms. Patient does have a history of urinary tract infection, however her last episode was approximately 5 years ago. Review of Systems Genitourinary: Positive for dysuria, frequency and urgency. All other systems reviewed and are negative. Objective BP 110/68 Pulse 64 Temp 36.4 ?C (97.6 ?F) Resp 16 Wt 78.2 kg (172 lb 6.4 oz) SpO2 98% BMI 33.67 kg/m? Physical Exam Vitals and nursing note reviewed. Constitutional: Appearance: Normal appearance. She is normal weight. HENT: Head: Normocephalic and atraumatic. Right Ear: External ear normal. Left Ear: External ear normal. Nose: Nose normal. Mouth/Throat: Mouth: Mucous membranes are moist. Pharynx: Oropharynx is clear. Eyes: Extraocular Movements: Extraocular movements intact. Conjunctiva/sclera: Conjunctivae normal. Pupils: Pupils are equal, round, and reactive to light. Cardiovascular: Rate and Rhythm: Normal rate. Pulses: Normal pulses. Heart sounds: Normal heart sounds. Pulmonary: Effort: Pulmonary effort is normal. Breath sounds: Normal breath sounds. Abdominal: General: Abdomen is flat. Palpations: Abdomen is soft. Musculoskeletal: Cervical back: Normal range of motion and neck supple. Skin: General: Skin is warm and dry. Capillary Refill: Capillary refill takes less than 2 seconds. Neurological: General: No focal deficit present. Mental Status: She is alert and oriented to person, place, and time. Psychiatric: Mood and Affect: Mood normal. Behavior: Behavior normal. Thought Content: Thought content normal. Judgment: Judgment normal. Assessment and Plan Physical exam findings as noted above. Urinalysis shows leukocyte esterase with moderate blood. >1000 glucose is noted, however the patient is diabetic and her caregiver reports that the patient is taking her medication for same as directed. Urine culture was ordered. Patient was provided with prescriptions for Macrobid 100 mg and Pyridium 100 mg. Caregiver for was advised that results of urine culture be available in 2 days and she will be contacted if there is need to change medication based on the sensitivity report. Caregiver expresses excellent understanding of the above instructions. CLINICAL IMPRESSION: Acute UTI ASSESSMENT/PLAN: 1. Urinary frequency - ICD9: 788.41, ICD10: R35.0 (primary diagnosis) - UA DIP, URINE (POC) 2. Acute UTI - ICD9: 599.0, ICD10: N39.0 - BACTERIAL CULTURE, URINE - NITROFURANTOIN MONOHYDRATE AND MACROCRYSTAL 100 MG ORAL CAP - PHENAZOPYRIDINE 100 MG TABLET Angelo MEHRAN Etienne Allergies As of Date: 12/26/2024 Noted Allergy Reaction AMOXICILLIN 07/15/2018 14 - Other: See Comments BLEACH (SODIUM HYPOCHLORITE) 04/04/2019 4 - Hives PENICILLINS 07/15/2018 14 - Other: See Comments SULFA (SULFONAMIDE ANTIBIOTICS) 04/12/2019 2 - Rash Comments: AND dry heaves. Date Reviewed: 12/26/2024 Reviewed by: Jenny Viveros MA - Fully Assessed Reason for Visit: Urinary Frequency [1086] Cmt: low back pain x 1 day Primary Visit Diagnosis:Urinary frequency [R35.0] Other Visit Diagnosis:Acute UTI [N39.0] Order(s):UA DIP, URINE (POC) [3408532] Order #: [id number]. #:[id number] BACTERIAL CULTURE, URINE [SQURCUL] Order #: [id number]. #:[id number] nitrofurantoin monohydrate and macrocrystal (MACROBID) 100 mg capsuleTake 1 capsule by mouth two times a day for 7 days.Disp: 14 capsuleRfl: 0 phenazopyridine (PYRIDIUM) 100 mg tabletTake 1 tablet by mouth three times a day as needed for up to 5 days.Disp: 15 tabletRfl: 0 Prescriptions as of 12/26/2024 - nitrofurantoin monohydrate and macrocrystal (MACROBID) 100 mg capsule Take 1 capsule by mouth two times a day for 7 days. - phenazopyridine (PYRIDIUM) 100 mg tablet Take 1 tablet by mouth three times a day as needed for up to 5 days. - celecoxib (CELEBREX) 200 mg capsule Take 1 capsule by mouth once daily. - DULoxetine (CYMBALTA) 60 mg capsule Take 1 capsule by mouth once daily. - atorvastatin (LIPITOR) 20 mg tablet Take 1 ta (more content not included)... Normal [facility] UA DIP, URINE (POC)on 2024 BILIRUBIN UA (POCT) Negative Negative [facility] CLARITY UA (POCT) Clear [facility] COLOR UA (POCT) Yellow [facility] GLUCOSE UA (POCT) >=1000 Abnormal Negative mg/dL [facility] Hemoglobin Ql (U) Moderate Abnormal Negative [facility] Interpretation and review of laboratory results Abnormal [facility] KETONE UA (POCT) Trace Negative mg/dL [facility] LEUKOCYTES UA (POCT) Small Abnormal [facility] NITRITE UA (POCT) Negative Negative [facility] PH UA (POCT) 5 4.5 - 8.0 [facility] Protein Ql (U) 30 mg/dL Abnormal Negative [facility] SPECIFIC GRAVITY UA (POCT) 1.015 1.005 - 1.030 [facility] UROBILINOGEN UA (POCT) 0.2 Normal E.U./dL [facility] Location:[address], [place], [place], [id number] [place] [address] POINT OF CARE [facility] CNOVon 11-28-2024 CNOV Office Visit (SLEWST) ARCENIO RAND ([id number]) 1965 F Date Time Provider Department 11/28/24 11:30 AM CHYNA PÉREZ During your visit today, we recorded the following information about you: Pulse Respiration Blood pressure Weight 68/minute 18/minute 133/75 78.2 kg Chyna Pérez APRN.METAL PICKLING EQUIPMENT OPERATOR 11/29/2024 4:15 PM Signed [facility] Follow up/ Established patient visit Date of last visit : 06/06/2024 The following Impression/Plan was copied and pasted from the patient's last [facility] visit on 06/06/24: IMPRESSION: Himanshu on cpap (primary encounter diagnosis) Arcenio Rand is a 59 year old female with PMH of severe HIMANSHU. --Patient is compliant with PAP therapy and reports subjective benefits from treatment --We reviewed PAP compliance report; AHI is normalized PLAN: - Continue Auto CPAP at 7-15 cmH2O. I changed the pressure setting from 10-20. - Remember to clean your mask and equipment regularly, as directed. - You should be eligible for new supplies approximately every 3-6 months, depending on your insurance coverage. Contact your [employer] (DME) company for new supplies as needed. - Follow up in 12 months with LEN Chyna Pérez APRN.CNP Here for follow up for severe HIMANSHU, presents today because of mask issue Dislikes her mask--has a hybrid FFM, causes skin irritation so she doesn't tolerate it the full 4 hrs Tends to have sensitive skin Uses all water in the chamber each night, can run out before morning Finding it harder to wake up in the morning SLEEP APNEA Sleep apnea type : HIMANSHU, Most Recent Apnea-Hypopnea Index (AHI): 41 Treatment : PAP therapy DME: [employer] PAP History: Current PAP settin-15 cm H2O. Difficulties with AutoPAP: Yes: see above Reviewed objective PAP compliance data: Mask type: hybrid full face mask Mask issues: skin irritation There is a perceived benefit by the patient: less sleepy during day SLEEP HYGIENE QUESTIONS: Bedtime : 8-9 pm Wake up Time : 6 am Time it takes to fall sleep : 1 hr Number of times patient wakes up per night : 2-3 Reason (s) why patient wakes up during the night : urination Estimated total sleep time ( in a 24 hour period of time) : 7 Naps : daily lately PATIENT-ENTERED QUESTIONNAIRE SLEEP SCORES ALLERGIES Allergen Reactions Amoxicillin Other: See Comments Bleach (Sodium Hypo* Hives Penicillins Other: See Comments Sulfa (Sulfonamide * Rash AND dry heaves. CURRENT MEDICATIONS: celecoxib (CELEBREX) 200 mg capsule Take 1 capsule by mouth once daily. levothyroxine (SYNTHROID) 50 mcg tablet Take 1 tablet by mouth once daily. Take on empty stomach. For Thyroid. aspirin, enteric coated (ASPIRIN, ENTERIC COATED) 81 mg EC tablet Take 1 tablet by mouth once daily. (self-started) cyanocobalamin (VITAMIN B-12) 1,000 mcg tab Take 1 tablet by mouth once daily. multivitamin-ferrous fumarate-folic acid (CENTRUM) Take 1 tablet by mouth once daily. DULoxetine (CYMBALTA) 60 mg capsule Take 1 capsule by mouth once daily. atenolol (TENORMIN) 100 mg tablet Take 1 tablet by mouth once daily. atorvastatin (LIPITOR) 20 mg tablet Take 1 tablet by mouth daily at bedtime. For cholesterol. empagliflozin (JARDIANCE) 25 mg tablet Take 1 tablet by mouth once daily. estradiol (ESTRACE) 1 mg tablet Take 1 tablet by mouth once daily. metFORMIN ER (GLUCOPHAGE XR) 500 mg 24 hr tablet Take 2 tablet by mouth twice daily with food. pioglitazone (ACTOS) 30 mg tablet Take 1 tablet by mouth once daily. SITagliptin phosphate (JANUVIA) 100 mg tablet Take 1 tablet by mouth once daily. lisinopril (ZESTRIL) 40 mg tablet Take 1 tablet by mouth once daily. Insulin [place], Disposable, (BD ULTRA-FINE ROSALIE PEN NEEDLE) 32 gauge x Use to inject insulin once daily as directed omeprazole (PRILOSEC) 20 mg capsule Take 2 capsules by mouth once daily. Lancets One Touch Test blood sugar(s) 2 times daily. Dx: Type 2 DM - Controlled E11.9 Insulin: Yes blood sugar diagnostic (BLOOD GLUCOSE TEST) test strip Test blood sugar(s) 2 times daily. Dx: Type 2 DM - Controlled E11.9 Insulin: Yes chlorthalidone (HYGROTON) 25 mg tablet Take 1 tablet by mouth once daily. nystatin (MYCOSTATIN) cream Apply 1 application to affected area two times a day. On left foot triamcinolone acetonide (KENALOG) 0.1 % ointment Apply to affected area twice daily. X 2 weeks; then take a break X 1 week. If still present, then restart X 2 more weeks. blood sugar diagnostic (BLOOD GLUCOSE TEST) test strip Test blood sugar(s) 2 times daily. Dx: Type 2 DM - Uncontrolled E11.65 Insulin: Yes hydrOXYzine HCl (ATARAX) 25 mg tablet Take 1 tablet by mouth every 6 hours as needed for anxiety. Cholecalciferol, (more content not included)... Normal [facility] ARCEN[facility]AND ([id number]) 1965 F Date Time Provider Department 11/22/24 DEMETRA BAUTISTA [facility] During your visit today, we recorded the following information about you: Demetra Bautista APRN.METAL PICKLING EQUIPMENT OPERATOR 11/22/2024 8:25 AM Signed Please advise patient: You have tested positive for influenza A. Tamiflu would not be helpful at this stage of the illness. Recommend supportive therapy at home. - Drink PLENTY of fluids (Gatorade/Pedialyte, tea) and get PLENTY of rest - Vaporizers, humidifiers, hot showers, and warm fluids help open respiratory and sinus passages (helps with cough and congestion) - Saline nose spray - Tylenol or ibuprofen as needed for fever and/or discomfort - Cover cough and wash hands frequently to prevent the spread of germs. Influenza can be spread through contact with respiratory secretions (through sneezing, coughing, talking, touching) or contaminated objects. You can be contagious from before your symptoms began and for several days after. - Stay home until you are fever free for 24 hours. Demetra Bautista APRN.Jenny Bonner MA 11/22/2024 8:56 AM Signed Patient given results and verbalized understanding of instructions given. Jenny Viveros MA Allergies As of Date: 11/22/2024 Noted Allergy Reaction AMOXICILLIN 07/15/2018 14 - Other: See Comments BLEACH (SODIUM HYPOCHLORITE) 04/04/2019 4 - Hives PENICILLINS 07/15/2018 14 - Other: See Comments SULFA (SULFONAMIDE ANTIBIOTICS) 04/12/2019 2 - Rash Comments: AND dry heaves. Date Reviewed: 11/21/2024 Reviewed by: Guillermina Ugalde LPN - Fully Assessed Reason for Visit: Results [95] Prescriptions as of 11/22/2024 - celecoxib (CELEBREX) 200 mg capsule Take 1 capsule by mouth once daily. - levothyroxine (SYNTHROID) 50 mcg tablet Take 1 tablet by mouth once daily. Take on empty stomach. For Thyroid. - aspirin, enteric coated (ASPIRIN, ENTERIC COATED) 81 mg EC tablet Take 1 tablet by mouth once daily. (self-started) - cyanocobalamin (VITAMIN B-12) 1,000 mcg tab Take 1 tablet by mouth once daily. - multivitamin-ferrous fumarate-folic acid (CENTRUM) Take 1 tablet by mouth once daily. - DULoxetine (CYMBALTA) 60 mg capsule Take 1 capsule by mouth once daily. - atenolol (TENORMIN) 100 mg tablet Take 1 tablet by mouth once daily. - atorvastatin (LIPITOR) 20 mg tablet Take 1 tablet by mouth daily at bedtime. For cholesterol. - empagliflozin (JARDIANCE) 25 mg tablet Take 1 tablet by mouth once daily. - estradiol (ESTRACE) 1 mg tablet Take 1 tablet by mouth once daily. - metFORMIN ER (GLUCOPHAGE XR) 500 mg 24 hr tablet Take 2 tablet by mouth twice daily with food. - pioglitazone (ACTOS) 30 mg tablet Take 1 tablet by mouth once daily. - SITagliptin phosphate (JANUVIA) 100 mg tablet Take 1 tablet by mouth once daily. - lisinopril (ZESTRIL) 40 mg tablet Take 1 tablet by mouth once daily. - Insulin [place], Disposable, (BD ULTRA-FINE ROSALIE PEN NEEDLE) 32 gauge x 5/32 Use to inject insulin once daily as directed - CPAP/BIPAP/OTHER APAP 7-15 cmH2O DME DASCO - omeprazole (PRILOSEC) 20 mg capsule Take 2 capsules by mouth once daily. - Lancets One Touch Test blood sugar(s) 2 times daily. Dx: Type 2 DM - Controlled E11.9 Insulin: Yes - insulin glargine 100 unit/mL (3 mL) Inject 32 Units subcutaneously every morning. - blood sugar diagnostic (BLOOD GLUCOSE TEST) test strip Test blood sugar(s) 2 times daily. Dx: Type 2 DM - Controlled E11.9 Insulin: Yes - chlorthalidone (HYGROTON) 25 mg tablet Take 1 tablet by mouth once daily. - nystatin (MYCOSTATIN) cream Apply 1 application to affected area two times a day. On left foot - triamcinolone acetonide (KENALOG) 0.1 % ointment Apply to affected area twice daily. X 2 weeks; then take a break X 1 week. If still present, then restart X 2 more weeks. - sertraline (ZOLOFT) 50 mg tablet Take 1 tablet by mouth once daily. - blood sugar diagnostic (BLOOD GLUCOSE TEST) test strip Test blood sugar(s) 2 times daily. Dx: Type 2 DM - Uncontrolled E11.65 Insulin: Yes - hydrOXYzine HCl (ATARAX) 25 mg tablet Take 1 tablet by mouth every 6 hours as needed for anxiety. - Cholecalciferol, Vitamin D3, (VITAMIN D-3) 50 mcg (2,000 unit) cap Take 1 capsule by mouth once daily. - COMPOUNDED PRESCRIPTION Diabetic shoes Problem List As Of Date 11/22/2024 Noted Resolved Arthralgia [M25.50] 07/15/2018 11/10/2022 Hypothyroidism [E03.9] 07/15/2018 Insomnia [G47.00] 07/15/2018 Vitamin B 12 deficiency [E53.8] 07/15/2018 Depression [F32.A] 07/15/2018 Essential hypertension, benign [I10] 07/15/2018 Hyperlipemia [E78.5] 07/15/2018 Type II diabetes mellitus, uncontrolled (HCC) [*07/15/2018 11/27/2021 Developmental delay [R62.50] 08/17/2018 Pulmonary hypertension (HCC) [I27.20] 02/24/2019 03/20/2021 HIMANSHU on CPAP [G47.33] 03/25/2019 Ch (more content not included)... Normal [facility] CNOVon 11-21-2024 CNOV Office Visit (UCWSTR) ARCENIO RAND ([id number]) 1965 F Date Time Provider Department 11/21/24 4:00 PM GRZEGORZ ORTIZ [facility] During your visit today, we recorded the following information about you: Temperature Pulse Respiration Blood pressure 97.9 degrees 78/minute 18/minute 110/78 Weight 79 kg Grzegorz Ortiz MD 11/21/2024 4:12 PM Signed Patient presents with: Cough: Cough and dizzy x 4 days HPI: Feeling sick for 4-5 days. Positive symptoms: cough, Earache, Nasal Congestion, Rhinorrhea, resolved Fever, Body Aches, Malaise, Fatigue, Headache, Negative symptoms: Chest pain, Vomiting, Diarrhea, OTC: Tylenol PAST MEDICAL HISTORY Diagnosis Date Arthralgia Chronic back pain Depression Developmental delay Diabetic neuropathy (HCC) feet DM (diabetes mellitus) (HCC) Hypertension Hypothyroid Mental disorder Snoring MEDICATIONS: Current Outpatient Medications Medication Sig celecoxib (CELEBREX) 200 mg capsule Take 1 capsule by mouth once daily. levothyroxine (SYNTHROID) 50 mcg tablet Take 1 tablet by mouth once daily. Take on empty stomach. For Thyroid. aspirin, enteric coated (ASPIRIN, ENTERIC COATED) 81 mg EC tablet Take 1 tablet by mouth once daily. (self-started) cyanocobalamin (VITAMIN B-12) 1,000 mcg tab Take 1 tablet by mouth once daily. multivitamin-ferrous fumarate-folic acid (CENTRUM) Take 1 tablet by mouth once daily. DULoxetine (CYMBALTA) 60 mg capsule Take 1 capsule by mouth once daily. atenolol (TENORMIN) 100 mg tablet Take 1 tablet by mouth once daily. atorvastatin (LIPITOR) 20 mg tablet Take 1 tablet by mouth daily at bedtime. For cholesterol. empagliflozin (JARDIANCE) 25 mg tablet Take 1 tablet by mouth once daily. estradiol (ESTRACE) 1 mg tablet Take 1 tablet by mouth once daily. metFORMIN ER (GLUCOPHAGE XR) 500 mg 24 hr tablet Take 2 tablet by mouth twice daily with food. pioglitazone (ACTOS) 30 mg tablet Take 1 tablet by mouth once daily. SITagliptin phosphate (JANUVIA) 100 mg tablet Take 1 tablet by mouth once daily. lisinopril (ZESTRIL) 40 mg tablet Take 1 tablet by mouth once daily. Insulin [place], Disposable, (BD ULTRA-FINE ROSALIE PEN NEEDLE) 32 gauge x Use to inject insulin once daily as directed CPAP/BIPAP/OTHER APAP 7-15 cmH2O DME DASCO omeprazole (PRILOSEC) 20 mg capsule Take 2 capsules by mouth once daily. Lancets One Touch Test blood sugar(s) 2 times daily. Dx: Type 2 DM - Controlled E11.9 Insulin: Yes blood sugar diagnostic (BLOOD GLUCOSE TEST) test strip Test blood sugar(s) 2 times daily. Dx: Type 2 DM - Controlled E11.9 Insulin: Yes chlorthalidone (HYGROTON) 25 mg tablet Take 1 tablet by mouth once daily. nystatin (MYCOSTATIN) cream Apply 1 application to affected area two times a day. On left foot triamcinolone acetonide (KENALOG) 0.1 % ointment Apply to affected area twice daily. X 2 weeks; then take a break X 1 week. If still present, then restart X 2 more weeks. blood sugar diagnostic (BLOOD GLUCOSE TEST) test strip Test blood sugar(s) 2 times daily. Dx: Type 2 DM - Uncontrolled E11.65 Insulin: Yes hydrOXYzine HCl (ATARAX) 25 mg tablet Take 1 tablet by mouth every 6 hours as needed for anxiety. Cholecalciferol, Vitamin D3, (VITAMIN D-3) 50 mcg (2,000 unit) cap Take 1 capsule by mouth once daily. COMPOUNDED PRESCRIPTION Diabetic shoes insulin glargine 100 unit/mL (3 mL) Inject 32 Units subcutaneously every morning. sertraline (ZOLOFT) 50 mg tablet Take 1 tablet by mouth once daily. No current facility-administere d medications for this visit. ALLERGIES: ALLERGIES Allergen Reactions Amoxicillin Other: See Comments Bleach (Sodium Hypo* Hives Penicillins Other: See Comments Sulfa (Sulfonamide * Rash AND dry heaves. VITALS: BP 110/78 Pulse 78 Temp 36.6 ?C (97.9 ?F) (Tympanic) Resp 18 Wt 79 kg (174 lb 2.6 oz) SpO2 100% BMI 34.01 kg/m? PHYSICAL EXAM: GEN: mildly ill appearing. Accompanied by caregiver HEENT: PERRL, EOMI, conjunctiva clear Ears: canals clear. TMs without erythema, bulge, or effusion Sinuses: non-tender frontal sinus, non-tender maxillary sinuses Throat: moist mucous membranes, mild erythema, no exudate Neck: supple, no thyromegaly, no lymphadenopathy HEART: regular rate, regular rhythm, no murmurs LUNGS: clear to auscultation, no wheezes or crackles, no increased WOB ASSESSMENT/PLAN: 1. Viral URI - ICD9: 465.9, ICD10: J06.9 - suspect viral URI, differential includes influenza and COVID-19. - Discussed supportive care treatment with home isolation (fever free for 24 hours and improving symptoms), rest, cold medicine, and analgesia. - Red flags to seek further treatment include chest pain, shortness of breath, and lethargy; in the ER if severe. - COVID AND INFLUENZA A/B AND RSV PCR, ROUTINE Grzegorz Ortiz MD Allergies As of Date: 11/21/2024 Noted A (more content not included)... Normal [facility] COVID AND INFLUENZA A/B AND RSV PCR, ROUTINEon 11-21-2024 SARS-CoV-2 (COVID-19) RNA CARLOS+probe Ql (Unsp spec) SARS-COV-2 (AGENT OF COVID-19) RNA: Not detected INFLUENZA A RNA: Detected INFLUENZA B RNA: Not detected RESPIRATORY SYNCYTIAL VIRUS (RSV) RNA: Not detected Abnormal [facility] Comment on above: Performed By: #### C VFLRS ####[facility] LABCLIA [id number] [address] OF [facility] CNOVon 11-03-2024 CNOV Office Visit (UCWSTR) ARCENIO RAND ([id number]) 1965 F Date Time Provider Department 11/03/24 3:30 [facility] During your visit today, we recorded the following information about you: Temperature Pulse Respiration Blood pressure 97 degrees 64/minute 18/minute 138/84 Weight 80 kg Gabbie Harvey APRN.[employer]QUIPMENT OPERATOR 11/03/2024 4:36 PM Signed This note was created using NoteWriter. Subjective Arcenio Rand is a 59 year old female. 59 year old female with PMH insomnia, DM, HTN, hyperlipidemia, thyroid, depression, and developmental delay presents for eye complaints. Acute onset yesterday Bilateral eyes Right worse +drainage +watering +redness +eye crusting +ear popping Denies cough Denies congestion Carlos Eduardo SOB or dyspnea Denies trauma or injury Denies feelings of FB Denies loss of vision ROS and HPI somewhat limited related to patient PMH Information obtained in conjunction with caregiver at bedside. She was sent home from workshop today The history is provided by the patient and a caregiver. Eye Problem This is a new problem. The current episode started yesterday. The problem occurs constantly. The problem has been unchanged. Pertinent negatives include no abdominal pain, anorexia, arthralgias, change in bowel habit, chest pain, chills, congestion, coughing, diaphoresis, fatigue, fever, headaches, joint swelling, myalgias, nausea, neck pain, numbness, rash, sore throat, swollen glands, urinary symptoms, vertigo, visual change, vomiting or weakness. Nothing aggravates the symptoms. She has tried nothing for the symptoms. The treatment provided no relief. PAST MEDICAL HISTORY Diagnosis Date Arthralgia Chronic back pain Depression Developmental delay Diabetic neuropathy (HCC) feet DM (diabetes mellitus) (HCC) Hypertension Hypothyroid Mental disorder Snoring PAST SURGICAL HISTORY Procedure Laterality Date COLONOSCOPY FLX DX W/COLLJ SPEC WHEN PFRMD 09/23/2018 Colonoscopy HYSTERECTOMY N/A XCAPSL CTRC RMVL INSJ IO LENS PROSTH CPLX WO ECP ALLERGIES Amoxicillin, Bleach (Sodium Hypochlorite), Penicillins, and Sulfa (Sulfonamide Antibiotics) MEDICATIONS celecoxib (CELEBREX) 200 mg capsule Take 1 capsule by mouth once daily. levothyroxine (SYNTHROID) 50 mcg tablet Take 1 tablet by mouth once daily. Take on empty stomach. For Thyroid. aspirin, enteric coated (ASPIRIN, ENTERIC COATED) 81 mg EC tablet Take 1 tablet by mouth once daily. (self-started) cyanocobalamin (VITAMIN B-12) 1,000 mcg tab Take 1 tablet by mouth once daily. DULoxetine (CYMBALTA) 60 mg capsule Take 1 capsule by mouth once daily. atenolol (TENORMIN) 100 mg tablet Take 1 tablet by mouth once daily. atorvastatin (LIPITOR) 20 mg tablet Take 1 tablet by mouth daily at bedtime. For cholesterol. empagliflozin (JARDIANCE) 25 mg tablet Take 1 tablet by mouth once daily. estradiol (ESTRACE) 1 mg tablet Take 1 tablet by mouth once daily. metFORMIN ER (GLUCOPHAGE XR) 500 mg 24 hr tablet Take 2 tablet by mouth twice daily with food. pioglitazone (ACTOS) 30 mg tablet Take 1 tablet by mouth once daily. SITagliptin phosphate (JANUVIA) 100 mg tablet Take 1 tablet by mouth once daily. lisinopril (ZESTRIL) 40 mg tablet Take 1 tablet by mouth once daily. Insulin [place], Disposable, (BD ULTRA-FINE ROSALIE PEN NEEDLE) 32 gauge x Use to inject insulin once daily as directed CPAP/BIPAP/OTHER APAP 7-15 cmH2O DME DASCO omeprazole (PRILOSEC) 20 mg capsule Take 2 capsules by mouth once daily. Lancets One Touch Test blood sugar(s) 2 times daily. Dx: Type 2 DM - Controlled E11.9 Insulin: Yes insulin glargine 100 unit/mL (3 mL) Inject 32 Units subcutaneously every morning. blood sugar diagnostic (BLOOD GLUCOSE TEST) test strip Test blood sugar(s) 2 times daily. Dx: Type 2 DM - Controlled E11.9 Insulin: Yes chlorthalidone (HYGROTON) 25 mg tablet Take 1 tablet by mouth once daily. triamcinolone acetonide (KENALOG) 0.1 % ointment Apply to affected area twice daily. X 2 weeks; then take a break X 1 week. If still present, then restart X 2 more weeks. blood sugar diagnostic (BLOOD GLUCOSE TEST) test strip Test blood sugar(s) 2 times daily. Dx: Type 2 DM - Uncontrolled E11.65 Insulin: Yes hydrOXYzine HCl (ATARAX) 25 mg tablet Take 1 tablet by mouth every 6 hours as needed for anxiety. trimethoprim-polymyx in (POLYTRIM) 10,000 unit- 1 mg/mL ophthalmic solution Use 1 Drop in both eyes every 4 hours for 7 days. azithromycin (ZITHROMAX Z-NEL) 250 mg tablet Take 2 tablets day one, then, 1 tablet daily until gone. multivitamin-ferrous fumarate-folic acid (CENTRUM) Take 1 tablet by mouth once daily. nystatin (MYCOSTATIN) cream Apply 1 application to affected area two times a day. On left foot (Patient not taking: Reported on 11/03/2024) sertraline (ZOLOFT) 50 mg tablet Take 1 tablet by mouth o (more content not included)... Normal [facility] Bedside Glucoseon 08-18-2024 FINGERSTICK GLU 416 mg/dL High -106 [facility] Comment on above: Result Comment: ARTHUR GEMENT OF PATIENT CARE PER NURSING PROTOCOL Performed By: #### L 501.080 #### [facility] [address] [facility] [address] FINGERSTICK GLU 88 mg/dL Normal -[address] [place] [address] Comment on above: Result Comment: ARTHUR GEMENT OF PATIENT CARE PER NURSING PROTOCOL Performed By: #### L 501.080 ####[facility] [address] [facility] [address] Bedside Glucoseon 08-17-2024 FINGERSTICK GLU 212 mg/dL High [address] [place] [address] Comment on above: Result Comment: ARTHUR GEMENT OF PATIENT CARE PER NURSING PROTOCOL Performed By: #### L 501.080 #### [facility] [address] [facility] [address] FINGERSTICK GLU 170 mg/dL High [address] [place] [address] Comment on above: Result Comment: ARTHUR GEMENT OF PATIENT CARE PER NURSING PROTOCOL Performed By: #### L 501.080 ####[facility] [address] [facility] [address] FINGERSTICK GLU 188 mg/dL High [address] [place] [address] Comment on above: Result Comment: ARTHUR GEMENT OF PATIENT CARE PER NURSING PROTOCOL Performed By: #### L 501.080 #### [facility] [address] [place], [address] FINGERSTICK GLU 105 mg/dL Normal 74-106 [facility] Comment on above: Result Comment: ARTHUR GEMENT OF PATIENT CARE PER NURSING PROTOCOL Performed By: #### L 501.080 ####[facility] [address] [place], [address] Bedside Glucoseon 08-16-2024 FINGERSTICK GLU 182 mg/dL High [address] [place] [address] Comment on above: Result Comment: ARTHUR GEMENT OF PATIENT CARE PER NURSING PROTOCOL Performed By: #### L 501.080 #### [facility] [address] [place], [address] FINGERSTICK GLU 237 mg/dL High [address] [place] [address] Comment on above: Result Comment: ARTHUR GEMENT OF PATIENT CARE PER NURSING PROTOCOL Performed By: #### L 501.080 ####[facility] [address] [place], [address] FINGERSTICK GLU 233 mg/dL High [address] [place] [address] Comment on above: Result Comment: ARTHUR GEMENT OF PATIENT CARE PER NURSING PROTOCOL Performed By: #### L 501.080 #### [facility] [address] [place], [address] FINGERSTICK GLU 79 mg/dL Normal [address] [place] [address] Comment on above: Result Comment: ARTHUR GEMENT OF PATIENT CARE PER NURSING PROTOCOL Performed By: #### L 501.080 #### [facility] [address] [place], [address] Bedside Glucoseon 08-15-2024 FINGERSTICK GLU 145 mg/dL High [address] [place] [address] Comment on above: Result Comment: ARTHUR GEMENT OF PATIENT CARE PER NURSING PROTOCOL Performed By: #### L 501.080 #### [facility] [address] [place], [address] FINGERSTICK GLU 306 mg/dL High 74-106 [facility] Comment on above: Result Comment: ARTHUR GEMENT OF PATIENT CARE PER NURSING PROTOCOL Performed By: #### L 501.080 #### [facility] [address] [place], [address] FINGERSTICK GLU 167 mg/dL High 74-106 [facility] Comment on above: Result Comment: ARTHUR GEMENT OF PATIENT CARE PER NURSING PROTOCOL Performed By: #### L 501.080 #### [facility] [address] [place], [address] FINGERSTICK GLU 102 mg/dL Normal 74-106 [facility] Comment on above: Result Comment: ARTHUR GEMENT OF PATIENT CARE PER NURSING PROTOCOL Performed By: #### L 501.080 #### [facility] [address] [place], [address] Discharge Instructionon 07-27 Discharge Instruction [facility] Medical Records Department [address] [place] [address] Instructions for Home/Discharge Instructions 08/15/24 1028 MR#: [id number] Acct: [id number] Name: ARCENIO RAND Rep #: [id number] : 1965 59 From: Natalie ROBERTS PCP: Dr. Ranjeet Goodwin MD Status:DIS JESSENIA Discharge Instructions Diet Discharge Diet: No restrictions (diabetic diet ) Activity Discharge Activity: Return to Normal Activity (with sling at all times. ) and May Shower Weight Bearing Status: No weight bearing (to left upper extremity) Dressing / Incision Call your doctor if your incision/area has: Continuous Slow Oozing, Sudden Increased Bleeding, Increased Pain/ Swelling, Increased Redness, Foul Smelling Discharge and Swelling at the incision site Call your doctor if you observe: Fever of 101 or Higher, Inability to have a bowel movement, Shortness of breath, Dizziness, Chest pain, Calf discomfort and Uncontrolled pain Cleanse incision/area with: Soap Water and Keep Dressing Clean Dry Follow Up Care When: In 2 weeks as previously scheduled post orthopedics. Test Results: Test results from this visit will be discussed in further detail at your follow-up appointment, if applicable. Discharge Plan Admission Admit Date/Time: 08/11/24 14:08 Attending Provider: Hi Echeverria Primary Care Provider: Ranjeet Goodwin Consulting Providers: Ferdinand Martinez; Harshil Cotton; Gely Teixeira; Ata Foreman; Ambreen Gómez; Roberto Nogueira; Roberto Ortiz; Jorge Alberto Khanna; Shania Mcdonald; Juan Pablo Giron; Davida Lr; Angelo Solomon; Joana Marie; Hi Keller; George Contreras; Scott Goetz; Armida Funes; Lowell Abraham Discharge Orders/Prescriptions Prescriptions: New acetaminophen 500 mg Tablet 1,000 mg PO Q8 Qty: 180 0RF aspirin 81 mg Tablet,Chewable 81 mg PO BIDCM 14 Days Qty: 28 0RF sennosides-docusate sodium [Stimulant Laxative Plus] 8.6-50 mg Tablet 2 tab PO DAILY PRN PRN (Reason: Constipation) Qty: 14 0RF oxycodone 5 mg Tablet 5 mg PO .q4-6 hrs prn PRN (Reason: pain 4-10) 7 Days Qty: 20 0RF Continued cholecalciferol (vitamin D3) 2,000 unit capsule 2,000 unit PO DAILY atorvastatin 20 MG tablet 20 mg PO QHS atenolol 100 MG tablet 100 mg PO DAILY estradiol 1 MG tablet 1 mg PO DAILY metformin 1,000 MG tablet 1,000 mg PO BIDCM duloxetine 60 MG capsule 60 mg PO DAILY sitagliptin phosphate 100 MG tablet 100 mg PO DAILY celecoxib 200 mg capsule 200 mg PO DAILY ABC Complete Women's 18-400 mg-mcg tablet 1 tab PO DAILY chlorthalidone 25 mg tablet 25 mg PO DAILY cyanocobalamin (vitamin B-12) [Vitamin B-12] 1,000 mcg tablet 1,000 mcg PO DAILY Jardiance 25 mg tablet 25 mg PO DAILY hydroxyzine HCl 25 mg tablet 25 mg PO Q6H PRN (Reason: anxiety) levothyroxine 50 mcg tablet 50 mcg PO DAILY omeprazole 20 mg capsule,delayed release(DR/EC) 40 mg PO DAILY lisinopril 40 mg tablet 40 mg PO DAILY pioglitazone 15 mg tablet 30 mg PO DAILY sertraline [Zoloft] 50 mg tablet 50 mg PO DAILY insulin glargine 100 UNITS/ML insulin pen 32 unit SQ DAILY Rx Instructions: takenin the morning Held aspirin 81 MG tablet,chewable 81 mg PO DAILY Hold Instructions: Resume on 08/25/24. Referrals / Follow Up: Ranjeet Goodwin MD [Primary Care Provider] - 08/18/24 1136 Natalie ROBERTS CC: Dr. Ata Foreman MD; Dr. Harshil Cotton DO; Dr. Gely Teixeira MD; Dr. Ferdinand Martinez MD; Dr. Ambreen Gómez MD; Dr. Roberto Ortiz MD; Dr. Roberto Nogueira DO; Dr. Jorge Alberto Khanna DO; Dr. Shania Mcdonald MD; Dr. Juan Pablo Giron MD; Dr. Davida Lr DO; Dr. Angelo Solomon DO; Dr. Joana Marie MD; Dr. Hi Keller MD; Dr. Armida Funes MD; Dr. Scott Goetz MD; Dr. George Contreras MD; Dr. Ranjeet Goodwin MD; Lowell Abraham MD Signed Normal [facility] Bedside Glucoseon 08-14-2024 FINGERSTICK GLU 154 mg/dL High 74-106 [facility] Comment on above: Result Comment: ARTHUR GEMENT OF PATIENT CARE PER NURSING PROTOCOL Performed By: #### L 501.080 ####[facility] [address] [place], [address] FINGERSTICK GLU 192 mg/dL High 74-106 [facility] Comment on above: Result Comment: ARTHUR GEMENT OF PATIENT CARE PER NURSING PROTOCOL Performed By: #### L 501.080 #### [facility] [address] [place], [address] FINGERSTICK GLU 203 mg/dL High 74-106 [facility] Comment on above: Result Comment: ARTHUR GEMENT OF PATIENT CARE PER NURSING PROTOCOL Performed By: #### L 501.080 #### [facility] [address] [place], [address] FINGERSTICK GLU 118 mg/dL High 74-106 [facility] Comment on above: Result Comment: ARTHUR GEMENT OF PATIENT CARE PER NURSING PROTOCOL Performed By: #### L 501.080 ####[facility] [address] [place], [address] Basic Metabolic Profile (BMP )on 08-13-2024 BUN/CRE 21.5 RATIO High 08-14 [facility] Comment on above: Performed By: #### L [id number], L300.3900, L500.3400, L300.4310 #### [facility] [address] [place], [address] CA,Total 8.4 mg/dL Low 8.5-10.1 [facility] Comment on above: Performed By: #### L [id number], L300.3900, L500.3400, L300.4310 #### [facility] [address] [place], [address] Chloride [Moles/Vol] 107 mmol/L Normal 98-107 [facility] Comment on above: Performed By: #### L [id number], L300.3900, L500.3400, L300.4310 #### [facility] [address] [place], [address] CO2 [Moles/Vol] 30.0 mmol/L Normal 21.0-32.0 [facility] Comment on above: Performed By: #### L [id number], L300.3900, L500.3400, L300.4310 #### [facility] [address] [place], [address] Creatinine [Mass/Vol] 0.98 mg/dL Normal 0.55-1.02 [facility] Comment on above: Result Comment: The validity of the calculated GFR GFRAA in patients over 70 years has not been determined. Clinical correlation is essential. Performed By: #### L [id number], L300.3900, L500.3400, L300.4310 #### [facility] [address] [place], [address] ECRCL 60.67 ml/min Normal [facility] Comment on above: Performed By: #### L [id number], L300.3900, L500.3400, L300.4310 #### [facility] [address] [place], [address] EST GFR - AA 75 mL/min Normal >60 [facility] Comment on above: Result Comment: Afri can [place] GFR Calc Performed By: #### L [id number], L300.3900, L500.3400, L300.4310 #### [facility] [address] [place], [address] GAP 3 Low 5-15 [facility] Comment on above: Performed By: #### L [id number], L300.3900, L500.3400, L300.4310 #### [facility] [address] [place], [address] GFR/1.73 sq M.predicted among non-blacks MDRD (S/P/Bld) [Vol rate/Area] 62 mL/min/{1.73_m2} Normal >60 [facility] Comment on above: Result Comment: Non- GFR Calc Performed By: #### L [id number], L300.3900, L500.3400, L300.4310 #### [facility] [address] [place], [address] Glucose [Mass/Vol] 83 mg/dL Normal 74-106 [facility] Comment on above: Performed By: #### L 501.9520, L300.3900, L500.3400, L300.4310 #### [facility] [address] [place], [address] Potassium [Moles/Vol] 3.6 mmol/L Normal 3.5-5.1 [facility] Comment on above: Performed By: #### L 501.9520, L300.3900, L500.3400, L300.4310 #### [facility] [address] [place], [address] Sodium [Moles/Vol] 140 mmol/L Normal 136-145 [facility] Comment on above: Performed By: #### L 501.9520, L300.3900, L500.3400, L300.4310 #### [facility] [address] [place], [address] Urea nitrogen [Mass/Vol] 21 mg/dL High 7-18 [facility] Comment on above: Performed By: #### L 501.9520, L300.3900, L500.3400, L300.4310 #### [facility] [address] [place], [address] Bedside Glucoseon 08-13-2024 FINGERSTICK GLU 277 mg/dL High 74-106 [facility] Comment on above: Result Comment: ARTHUR GEMENT OF PATIENT CARE PER NURSING PROTOCOL Performed By: #### L 501.080 #### [facility] [address] [place], [address] FINGERSTICK GLU 231 mg/dL High 74-106 [facility] Comment on above: Result Comment: ARTHUR GEMENT OF PATIENT CARE PER NURSING PROTOCOL Performed By: #### L 501.080 ####[facility] [address] [place], [address] FINGERSTICK GLU 183 mg/dL High 74-106 [facility] Comment on above: Result Comment: ARTHUR GEMENT OF PATIENT CARE PER NURSING PROTOCOL Performed By: #### L 501.080 ####[facility] [address] [place], [address] FINGERSTICK GLU 77 mg/dL Normal 74-106 [facility] Comment on above: Result Comment: ARTHUR CORDOBA OF PATIENT CARE PER NURSING PROTOCOL Performed By: #### L 501.080 #### [facility] [address] [place], [address] CBC W/Diff, Automatedon 07-26 Absolute Lymph 3.03 X10 3/uL Normal 0.83-4.51 [facility] Comment on above: Performed By: #### L 501.080 #### [facility] [address] [place], [address] Absolute Neut 4.0 X10 3/uL Normal 2.0-7.7 [facility] Comment on above: Performed By: #### L 501.080 #### [facility] [address] [place], [address] Basophils/100 WBC (Bld) 0.4 % Normal 0-1 [facility] Comment on above: Performed By: #### L 501.080 #### [facility] [address] [place], [address] Eosinophils/100 WBC (Bld) 1.8 % Normal 0-5 [facility] Comment on above: Performed By: #### L 501.080 #### [facility] [address] [place], [address] Erythrocyte distribution width (RBC) [Ratio] 13.5 % Normal 11.6-14.6 [facility] Comment on above: Performed By: #### L 501.080 #### [facility] [address] [place], [address] Hematocrit (Bld) [Volume fraction] 34.3 % Low 37-47 [facility] Comment on above: Performed By: #### L 501.080 #### [facility] [address] [place], [address] Hemoglobin (Bld) [Mass/Vol] 11.0 g/dL Low 12.0-15.0 [facility] Comment on above: Performed By: #### L 501.080 #### [facility] [address] [place], [address] IG% 0.400 Normal 0.0-0.9 [facility] Comment on above: Result Comment: IG% - Immature Granulocytes (promyelocytes, myelocytes and metamyelocytes) > 1% indicates that a LEFT SHIFT is Present. Performed By: #### L 501.080 #### [facility] [address] [place], [address] Lymphocytes/100 WBC (Bld) 37.2 % Normal 19-41 [facility] Comment on above: Performed By: #### L 501.080 #### [facility] [address] [place], [address] MCH (RBC) [Entitic mass] 29.3 pg Normal 27.0-32.0 [facility] Comment on above: Performed By: #### L 501.080 #### [facility] [address] [place], [address] MCHC (RBC) [Mass/Vol] 32.1 g/dL Normal 32-36 [facility] Comment on above: Performed By: #### L 501.080 #### [facility] [address] [place], [address] MCV (RBC) [Entitic vol] 91.5 fL Normal 81-99 [facility] Comment on above: Performed By: #### L 501.080 #### [facility] [address] [place], [address] Monocytes/100 WBC (Bld) 10.7 % High 0-10 [facility] Comment on above: Performed By: #### L 501.080 #### [facility] [address] [place], [address] Neutrophils/100 WBC (Bld) 49.5 % Normal 47-70 [facility] Comment on above: Performed By: #### L 501.080 #### [facility] [address] [place], [address] Nucleated RBC (Bld) [#/Vol] 0 10*3/uL Normal 0-5 [facility] Comment on above: Performed By: #### L 501.080 #### [facility] [address] [place], [address] Platelet mean volume (Bld) [Entitic vol] 10.2 fL Normal 6.2-12.0 [facility] Comment on above: Performed By: #### L 501.080 #### [facility] [address] [place], [address] Platelets (Bld) [#/Vol] 231 10*3/uL Normal 150-450 [facility] Comment on above: Performed By: #### L 501.080 #### [facility] [address] [place], [address] RBC (Bld) [#/Vol] 3.75 10*6/uL Low 4.2-5.4 [facility] Comment on above: Performed By: #### L 501.080 #### [facility] [address] [place], [address] RDW SD 45.0 fl High 35.1-43.9 [facility] Comment on above: Performed By: #### L 501.080 #### [facility] [address] [place], [address] WBC (Bld) [#/Vol] 8.1 10*3/uL Normal 4.4-11.0 [facility] Comment on above: Performed By: #### L 501.080 #### [facility] [address] [place], [address] Basic Metabolic Profile (BMP )on 08-12-2024 BUN/CRE 19.9 RATIO Normal -20 [facility] Comment on above: Performed By: #### L 506.0400, L500.2500, L100.0100, L501.9520 ####[facility] [address] [place], [address] CA,Total 8.6 mg/dL Normal 8.5-10.1 [facility] Comment on above: Performed By: #### L 506.0400, L500.2500, L100.0100, L501.9520 ####[facility] [address] [place], [address] Chloride [Moles/Vol] 107 mmol/L Normal 98-107 [facility] Comment on above: Performed By: #### L 506.0400, L500.2500, L100.0100, L501.9520 ####[facility] [address] [place], [address] CO2 [Moles/Vol] 26.0 mmol/L Normal 21.0-32.0 [facility] Comment on above: Performed By: #### L 506.0400, L500.2500, L100.0100, L501.9520 ####[facility] [address] [place], [address] Creatinine [Mass/Vol] 0.90 mg/dL Normal 0.55-1.02 [facility] Comment on above: Result Comment: The validity of the calculated GFR GFRAA in patients over 70 years has not been determined. Clinical correlation is essential. Performed By: #### L 506.0400, L500.2500, L100.0100, L501.9520 ####[facility] [address] [place], [address] ECRCL 66.06 ml/min Normal [facility] Comment on above: Performed By: #### L 506.0400, L500.2500, L100.0100, L501.9520 ####[facility] [address] [place], [address] EST GFR - AA 82 mL/min Normal >60 [facility] Comment on above: Result Comment: Afri can [place] GFR Calc Performed By: #### L 506.0400, L500.2500, L100.0100, L501.9520 ####[facility] [address] [place], [address] GAP 5 Normal 5-15 [facility] Comment on above: Performed By: #### L 506.0400, L500.2500, L100.0100, L5.9520 ####[facility] [address] [place], [address] GFR/1.73 sq M.predicted among non-blacks MDRD (S/P/Bld) [Vol rate/Area] 68 mL/min/{1.73_m2} Normal >60 [facility] Comment on above: Result Comment: Non- GFR Calc Performed By: #### L 506.0400, L500.2500, L100.0100, L501.9520 ####[facility] [address] [place], [address] Glucose [Mass/Vol] 136 mg/dL High 74-106 [facility] Comment on above: Result Comment: Fast ing Glucose result greater than or equal to 126 mg/dL suggests DIABETES MELLITUS per A.D.A. criteria. Performed By: #### L 506.0400, L500.2500, L100.0100, L501.9520 ####[facility] [address] [place], [address] Potassium [Moles/Vol] 4.3 mmol/L Normal 3.5-5.1 [facility] Comment on above: Performed By: #### L 506.0400, L500.2500, L100.0100, L501.9520 ####[facility] [address] [place], [address] Sodium [Moles/Vol] 138 mmol/L Normal 136-145 [facility] Comment on above: Performed By: #### L 506.0400, L500.2500, L100.0100, L501.9520 ####[facility] [address] [place], [address] Urea nitrogen [Mass/Vol] 18 mg/dL Normal 7-18 [facility] Comment on above: Performed By: #### L 506.0400, L500.2500, L100.0100, L501.9520 ####[facility] [address] [place], [address] Bedside Glucoseon 08-12-2024 FINGERSTICK GLU 151 mg/dL High 74-106 [facility] Comment on above: Result Comment: ARTHUR GEMENT OF PATIENT CARE PER NURSING PROTOCOL Performed By: #### L 501.080 ####[facility] [address] [place], [address] FINGERSTICK GLU 180 mg/dL High 74-106 [facility] Comment on above: Result Comment: ARTHUR GEMENT OF PATIENT CARE PER NURSING PROTOCOL Performed By: #### L 501.080 #### [facility] [address] [place], [address] FINGERSTICK GLU 218 mg/dL High 74-106 [facility] Comment on above: Result Comment: ARTHUR GEMENT OF PATIENT CARE PER NURSING PROTOCOL Performed By: #### L 501.9520, L300.3900, L500.3400, L300.4310 #### [facility] [address] [place], [address] FINGERSTICK GLU 146 mg/dL High 74-106 [facility] Comment on above: Result Comment: ARTHUR CORDOBA OF PATIENT CARE PER NURSING PROTOCOL Performed By: #### L 501.080 #### [facility] [address] [place], [address] CBC W/Diff, Automatedon 10-1 Absolute Lymph 1.39 X10 3/uL Normal 0.83-4.51 [facility] Comment on above: Performed By: #### L 506.0400, L500.2500, L100.0100, L501.9520 ####[facility] [address] [place], [address] Absolute Neut 9.3 X10 3/uL High 2.0-7.7 [facility] Comment on above: Performed By: #### L 506.0400, L500.2500, L100.0100, L501.9520 ####[facility] [address] [place], [address] Basophils/100 WBC (Bld) 0.1 % Normal 0-1 [facility] Comment on above: Performed By: #### L 506.0400, L500.2500, L100.0100, L501.9520 ####[facility] [address] [place], [address] Eosinophils/100 WBC (Bld) 0.0 % Normal 0-5 [facility] Comment on above: Performed By: #### L 506.0400, L500.2500, L100.0100, L501.9520 ####[facility] [address] [place], [address] Erythrocyte distribution width (RBC) [Ratio] 13.2 % Normal 11.6-14.6 [facility] Comment on above: Performed By: #### L 506.0400, L500.2500, L100.0100, L501.9520 ####[facility] [address] [place], [address] Hematocrit (Bld) [Volume fraction] 36.3 % Low 37-47 [facility] Comment on above: Performed By: #### L 506.0400, L500.2500, L100.0100, L501.9520 ####[facility] [address] [place], [address] Hemoglobin (Bld) [Mass/Vol] 11.9 g/dL Low 12.0-15.0 [facility] Comment on above: Performed By: #### L 506.0400, L500.2500, L100.0100, L501.9520 ####[facility] [address] [place], [address] IG% 0.400 Normal 0.0-0.9 [facility] Comment on above: Result Comment: IG% - Immature Granulocytes (promyelocytes, myelocytes and metamyelocytes) > 1% indicates that a LEFT SHIFT is Present. Performed By: #### L 506.0400, L500.2500, L100.0100, L501.9520 ####[facility] [address] [place], [address] Lymphocytes/100 WBC (Bld) 11.7 % Low 19-41 [facility] Comment on above: Performed By: #### L 506.0400, L500.2500, L100.0100, L501.9520 ####[facility] [address] [place], [address] MCH (RBC) [Entitic mass] 29.5 pg Normal 27.0-32.0 [facility] Comment on above: Performed By: #### L 506.0400, L500.2500, L100.0100, L501.9520 ####[facility] [address] [place], [address] MCHC (RBC) [Mass/Vol] 32.8 g/dL Normal 32-36 [facility] Comment on above: Performed By: #### L 506.0400, L500.2500, L100.0100, L501.9520 ####[facility] [address] [place], [address] MCV (RBC) [Entitic vol] 89.9 fL Normal 81-99 [facility] Comment on above: Performed By: #### L 506.0400, L500.2500, L100.0100, L501.9520 ####[facility] [address] [place], [address] Monocytes/100 WBC (Bld) 9.4 % Normal 0-10 [facility] Comment on above: Performed By: #### L 506.0400, L500.2500, L100.0100, L501.9520 ####[facility] [address] [place], [address] Neutrophils/100 WBC (Bld) 78.4 % High 47-70 [facility] Comment on above: Performed By: #### L 506.0400, L500.2500, L100.0100, L501.9520 ####[facility] [address] [place], [address] Nucleated RBC (Bld) [#/Vol] 0 10*3/uL Normal 0-5 [facility] Comment on above: Performed By: #### L 506.0400, L500.2500, L100.0100, L501.9520 ####[facility] [address] [place], [address] Platelet mean volume (Bld) [Entitic vol] 10.0 fL Normal 6.2-12.0 [facility] Comment on above: Performed By: #### L 506.0400, L500.2500, L100.0100, L501.9520 ####[facility] [address] [place], [address] Platelets (Bld) [#/Vol] 290 10*3/uL Normal 150-450 [facility] Comment on above: Performed By: #### L 506.0400, L500.2500, L100.0100, L501.9520 ####[facility] [address] [place], [address] RBC (Bld) [#/Vol] 4.04 10*6/uL Low 4.2-5.4 [facility] Comment on above: Performed By: #### L 506.0400, L500.2500, L100.0100, L501.9520 ####[facility] [address] [place], [address] RDW SD 43.2 fl Normal 35.1-43.9 [facility] Comment on above: Performed By: #### L 506.0400, L500.2500, L100.0100, L501.9520 ####[facility] [address] [place], [address] WBC (Bld) [#/Vol] 11.9 10*3/uL High 4.4-11.0 [facility] Comment on above: Performed By: #### L 506.0400, L500.2500, L100.0100, L501.9520 ####[facility] [address] [place], [address] T4 Free Directon 08-12-2024 T4 FREE DIRECT 1.21 ng/dL Normal 0.76-1.46 [facility] Comment on above: Performed By: #### L 506.0400, L500.2500, L100.0100, L501.9520 ####[facility] [address] [place], [address] Thyroid Stim Hormone (TSH)on 08-12-2024 TSH 0.032 uIU/mL Low 0.358-3.740 [facility] Comment on above: Performed By: #### L 506.0400, L500.2500, L100.0100, L501.9520 ####[facility] [address] [place], [address] Bedside Glucoseon 08-11-2024 FINGERSTICK GLU 351 mg/dL High 74-106 [facility] Comment on above: Result Comment: ARTHUR GEMENT OF PATIENT CARE PER NURSING PROTOCOL Performed By: #### L 501.080 #### [facility] [address] [place], [address] FINGERSTICK GLU 203 mg/dL High 74-106 [facility] Comment on above: Result Comment: ARTHUR GEMENT OF PATIENT CARE PER NURSING PROTOCOL Performed By: #### L 501.080 #### [facility] [address] [place], [address] Consultation - Hospitaliston 08-11-2024 Consultation - Hospitalist [facility] Medical Records Department [address] [place] [address] Consultation - Hospitalist 08/11/24 1919 MR#: [id number] Acct: [id number] Name: ARCENIO RAND Rep #: [id number] : 1965 59 From: George Contreras MD PCP: Dr. Ranjeet Goodwin MD Status:ADM JESSENIA Location: [place] [address] Assessment Plan Assessment/Plan (1) Impingement of left shoulder: PLAN: Plan 1. Chronic left shoulder impingement syndrome: Patient chronic left shoulder rotator cuff tear with subacromial impingement syndrome, left biceps tendinosis with partial tearing with left AC joint arthritis. Left shoulder labral tearing. She had elective surgery of left shoulder arthroscopic rotator cuff repair with subacromial decompression. Left shoulder biceps tenotomy with debridement of the Single, labral junction and distal clavicle excision. PT and OT. Bowel and bladder care. DVT prophylaxis as per DVT prophylaxis. Surgeon informed about operative note which wrongly describes the surgery on the right shoulder 2. DM type II: Last A1c 7.1% in July 2024. Glucose 205. Accu-Chek before meals and at bedtime with Humalog sliding scale coverage and hypoglycemia protocol. 3. Hypertension and dyslipidemia: Home medication reconciliation done. Blood pressure in normal range. Hold antihypertensive medications for SBP less than 130 mmHg 4. Hypothyroidism: TSH is 0.03 very low on 08/14/2024. Free T4 ordered for tomorrow AM. 5. 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 atm manager consulted. HPI Consult Data Date of Consult: 08/11/24 HPI Narrative Reason for Consultation: Perioperative management after elective left shoulder surgery HPI Narrative: ARCENIO RAND, is a 59 F is admitted after elective left shoulder surgery. Patient has chronic left shoulder rotator cuff tear with subacromial impingement syndrome, left biceps tendinosis with partial tearing with left AC joint arthritis. Left shoulder labral tearing. It is wrongly mentioned has right shoulder in the operative note therefore I called Dr. Hi echeverria and informed to change the laterality of the surgical operative note Patient was seen and examined in the PACU No acute complaint of chest pain shortness of breath. Patient voided urine twice. Patient is accompanied by social service coordinator as she has mild MRDD/cognitive or motor delay. She had bowel movement today. But patient lives independently. [facility] Medical History Cognitive impairment Easy bruising Wears hearing aid Wears partial dentures Wears glasses Post-menopausal Depression Anxiety Thyroid disease Insulin dependent diabetes mellitus High cholesterol Dietary restriction Gastric reflux Non-smoker CPAP (continuous positive airway pressure) dependence Shortness of breath on exertion History of echocardiogram History of stress test Neuropathy High triglycerides Hypertension Diabetes Arthritis Home Medications ???Medication ???Instructions ???Recorded ???Last Taken ???Type atenolol 100 mg tablet 100 mg PO DAILY blood pressure 02/24/18 08/11/24 05:00 History atorvastatin 20 mg tablet 20 mg PO QHS cholesterol 02/24/18 08/10/24 History duloxetine 60 mg capsule,delayed 60 mg PO DAILY mental health 02/24/18 08/11/24 05:00 History release estradiol 1 mg tablet 1 mg PO DAILY supplement 02/24/18 08/10/24 History metformin 1,000 mg tablet 1,000 mg PO BIDCM diabetic 02/24/18 08/10/24 History sitagliptin phosphate 100 mg tablet 100 mg PO DAILY blood sugar 02/24/18 08/10/24 History aspirin 81 mg chewable tablet 81 mg PO DAILY heart health 02/17/19 08/05/24 History cholecalciferol (vitamin D3) 50 2,000 unit PO DAILY vitamin 04/01/19 08/10/24 History mcg (2,000 unit) capsule celecoxib 200 mg capsule 200 mg PO DAILY 04/11/24 08/05/24 History chlorthalidone 25 mg tablet 25 mg PO DAILY 04/11/24 08/10/24 History cyanocobalamin (vitamin B-12) 1,000 mcg PO DAILY 04/11/24 08/05/24 History 1,000 mcg tablet (Vitamin B-12) empagliflozin 25 mg tablet 25 mg PO DAILY 04/11/24 08/10/24 History (Jardiance) hydroxyzine HCl 25 mg tablet 25 mg PO Q6H PRN anxiety 04/11/24 08/10/24 History insulin glargine 100 unit/mL (3 32 unit SQ DAILY blood sugar 04/11/24 08/10/24 History mL) subcutaneous pen levothyroxine 50 mcg tablet 50 mcg PO DAILY 04/11/24 08/11/24 05:00 History lisinopril 40 mg tablet 40 mg PO DAILY 04/11/24 08/11/24 05:00 History multivitamin-ferrous 1 tab PO DAILY 04/11/24 08/05/24 History fumarate-folic acid 18 mg-400 mcg tablet ([facility]) omeprazole 20 mg capsule,delayed 40 mg PO DAILY 04/11/24 08/11/24 05:00 History release pioglitazone 15 mg tablet 30 mg PO DAILY 04/11/24 08/10/24 History sertraline 50 mg tablet (Zolo (more content not included)... Normal [facility] MR/POSTOP.Elli 08-11-2024 MR/POSTOP.[facility] Medical Records Department [address] [place] [address] Anesthesia Postop Eval I 08/11/24 1435 MR#: [id number] Acct: [id number] Name: ARCENIO RAND Rep #: [id number] : 1965 59 From: Jorge Alberto Oropeza MD PCP: Dr. Ranjeet Goodwin MD Status:REG SDC Y Race: C Location: [place] [address] Anesthesia: Postop Eval I Current Vital Signs Temperature: 97 F Pulse Rate: 80 Blood Pressure: 118/77 Respiratory Rate: 16 Pulse Ox: 99 Assessment Airway patent: Yes Spontaneous unlabored respirations: Yes nausea: No Vomiting: No Anesthesia Complication: Yes Anesthesia Complication Comment:: none Fluid Hydration Crystalloid volume administer (ml): 1,000 Total IV fluid infused: 1,000 Progress Note Post-operative progress note: . Anesthesia document: Postop Eval 1 completed: Yes 08/11/24 162 Date Jorge Alberto Oropeza MD Cosigner Signature: Date CC: Signed Normal [facility] MR/[id number] 08-11-2024 /[facility] Medical Records Department [address] [place] [address] Anesthesia Postop Eval II 08/11/24 160 MR#: [id number] Acct: [id number] Name: ARCENIO RAND Rep #: [id number] : 1965 59 From: Jorge Alberto Oropeza MD PCP: Dr. Ranjeet Goodwin MD Status:REG [facility] Y Race: C Location: [place] [address] Anesthesia Postop Eval I Sum Anesthesia Postop Eval I Summary Anesthesia Postop Eval I Summary: Anesthesia Postop Eval I: Assessment Summary Airway patent Spontaneous unlabored respirations Mental status nausea Vomiting Anesthesia Postop Eval I: Fluid Summary Crystalloid volume administer (ml) Colloids volume administered ( ml) Blood Product volume administered (ml) Total IV fluid infused Anesthesia Postop Eval I: Summary Notes Anesthesia Complication Anesthesia Complication Comment: Post-operative progress note Anesthesia: Postop Eval II Evaluation Mental status: Awake Pain Level: 0 nausea: No Vomiting: No 08/11/24 1607 Date Jorge Alberto Maddox Signature: Date CC: Signed Normal [facility] Operative Reporton 4 Operative Report [facility] Medical Records Department [address] [place] [address] Operative Report 08/11/24 1420 MR#: [id number] Acct: [id number] Name: ARCENIO RAND Rep #: [id number] : 1965 59 From: Hi Echeverria DO PCP: Dr. Ranjeet Goodwin MD Status:ADM JESSENIA Location: [place] [address] Report of Operation Date of Procedure: 08/11/24 Description of Surgical Findings:: Preoperative diagnosis: 1. Right shoulder rotator cuff tear 2. Right shoulder subacromial impingement syndrome 3. Right biceps tendinosis with partial tearing 4. Symptomatic right acromioclavicular joint osteoarthritis Postoperative diagnosis: 1. Right shoulder rotator cuff tear 2. Right shoulder subacromial impingement syndrome 3. Right biceps tendinosis with partial tearing 4. Symptomatic right acromioclavicular joint osteoarthritis 5. Right shoulder synovitis 6. Right shoulder degenerative labral tearing Procedure 1. Right shoulder arthroscopic rotator cuff repair 2. Right shoulder arthroscopic subacromial decompression 3. Right shoulder biceps tenotomy with debridement of the capsule, biceps labral junction, labrum 4. Right shoulder arthroscopic distal clavicle excision Surgeon: Hi Echeverria DO [employer] V[employer] Mechanic: Natalie Benitez PA-C Anesthesia: General LMA with interscalene block Mill Operator: Pavan Chambers CRNA Estimated blood loss: 5 cc IV fluids: 1 L crystalloid Urine output: None recorded Packing/drains: None Implants: Arthrex fiber tack RC x 2, Arthrex 4.75 mm bio composite swivel lock anchor x 2 Preoperative indications: This is a 59-year-old MRDD female seen in the outpatient setting with acute onset left shoulder pain after a fall onto her left shoulder in the spring 2023. She had profound weakness in her supraspinatus. MRI demonstrated a full-thickness retracted tear of the supraspinatus and infraspinatus. I recommend surgical intervention in the form of right shoulder arthroscopic rotator cuff repair, subacromial decompression. Patient also had evidence of partial biceps tear and biceps tenotomy was recommended. She also had symptomatic AC joint arthritis which I recommended arthroscopic distal clavicle excision. Informed consent was obtained in the outpatient setting. Surgery was previously scheduled with delayed due to multiple wounds on bilateral upper extremities as patient has a tendency to scratch and pick her skin. Skin eventually healed uneventfully without evidence of infection. Risks, benefits, terms the procedure reviewed with the patient at length and he agreed to proceed. Risk included but were not limited to bleeding, infection, loss of life or limb, need for additional surgery, persistent pain, nonhealing tendon or wounds, stiffness, neurovascular injury, DVT or PE. Patient expressed understanding of these risks and wished to proceed with surgery. I discussed preoperatively with the patient's new account interviewer about possible snf facility placement postoperatively as the patient lives alone and is limited in her mental capacity. We agreed to place the patient in observation at the very least postoperatively for early rehab. Plan is to work on possible placement depending on her postoperative needs. Description of procedure: Patient was identified in preoperative holding area by name, medical record number, and date of . The operative extremity was marked. All questions were answered to the patient's satisfaction. An interscalene block was administered by anesthesia prior to the procedure. Patient was then brought to the operative suite at time of her procedure she he was positioned supine a sterile operating table. General anesthesia was induced and LMA was placed. Patient was then placed in lateral decubitus position with the left side up. A beanbag was used to hold the patient in the lateral decubitus position. An axillary roll was placed. Pillows were placed beneath and between her legs to for any bony prominences. We prepped and draped the left upper extremity in normal, sterile orthopedic fashion. The operative extremity was placed in traction utilizing arthroscopic bedroom with 10 pounds of tension applied to the operative extremity throughout the arthroscopic portion of the case. We performed a timeout with all parties in attendance in agreement with the side, site, and operation be performed. No concerns were voiced and we elected to proceed with surgery. 2 g Ancef was administered IV prior to incision by anesthesia staff. I first established a standard posterior portal 2 fingerbreadths inferior medial to the posterior lateral border of the scapular spine. Blunt tipped trocar and arthroscopic cannula was introduced into the glenohumeral joint. Joint was inflated with normal saline with epinephrine. Arthroscope was then introduced. Diagnostic arthroscopy was commenced. Full-t (more content not included)... Normal [facility] Basic Metabolic Profile (BMP )on 08-04-2024 BUN/CRE 25.4 RATIO High 08-14 [facility] Comment on above: Performed By: #### L 100.0100, L501.9985, L500.2500 ####[facility] [address] [place], [address] CA,Total 8.5 mg/dL Normal 8.5-10.1 [facility] Comment on above: Performed By: #### L 100.0100, L501.9985, L500.2500 ####[facility] [address] [place], [address] Chloride [Moles/Vol] 105 mmol/L Normal 98-107 [facility] Comment on above: Performed By: #### L 100.0100, L501.9985, L500.2500 ####[facility] [address] [place], [address] CO2 [Moles/Vol] 25.0 mmol/L Normal 21.0-32.0 [facility] Comment on above: Performed By: #### L 100.0100, L501.9985, L500.2500 ####[facility] [address] [place], [address] Creatinine [Mass/Vol] 1.30 mg/dL High 0.55-1.02 [facility] Comment on above: Result Comment: The validity of the calculated GFR GFRAA in patients over 70 years has not been determined. Clinical correlation is essential. Performed By: #### L 100.0100, L501.9985, L500.2500 ####[facility] [address] [place], [address] EST GFR - AA 54 mL/min Low >60 [facility] Comment on above: Result Comment: Afri can [place] GFR Calc Performed By: #### L 100.0100, L501.9985, L500.2500 ####[facility] [address] [place], [address] GAP 8 Normal 5-15 [facility] Comment on above: Performed By: #### L 100.0100, L501.9985, L500.2500 ####[facility] [address] [place], [address] GFR/1.73 sq M.predicted among non-blacks MDRD (S/P/Bld) [Vol rate/Area] 45 mL/min/{1.73_m2} Low >60 [facility] Comment on above: Result Comment: Non- GFR Calc Performed By: #### L 100.0100, L501.9985, L500.2500 ####[facility] [address] [place], [address] Glucose [Mass/Vol] 205 mg/dL High 74-106 [facility] Comment on above: Result Comment: Gluc ose result greater than or equal to 200 mg/dL suggests DIABETES MELLITUS per A.D.A. criteria. Performed By: #### L 100.0100, L501.9985, L500.2500 ####[facility] [address] [place], [address] Potassium [Moles/Vol] 3.8 mmol/L Normal 3.5-5.1 [facility] Comment on above: Performed By: #### L 100.0100, L501.9985, L500.2500 ####[facility] [address] [place], [address] Sodium [Moles/Vol] 139 mmol/L Normal 136-145 [facility] Comment on above: Performed By: #### L 100.0100, L501.9985, L500.2500 ####[facility] [address] [place], [address] Urea nitrogen [Mass/Vol] 33 mg/dL High 7-18 [facility] Comment on above: Performed By: #### L 100.0100, L501.9985, L500.2500 ####[facility] [address] [place], [address] CBC W/Diff, Automatedon 10- 0-2023 Absolute Lymph 2.35 X10 3/uL Normal 0.83-4.51 [facility] Comment on above: Performed By: #### L 100.0100, L501.9985, L500.2500 ####[facility] [address] [place], [address] Absolute Neut 4.5 X10 3/uL Normal 2.0-7.7 [facility] Comment on above: Performed By: #### L 100.0100, L501.9985, L500.2500 ####[facility] [address] [place], [address] Basophils/100 WBC (Bld) 0.6 % Normal 0-1 [facility] Comment on above: Performed By: #### L 100.0100, L501.9985, L500.2500 ####[facility] [address] [place], [address] Eosinophils/100 WBC (Bld) 1.6 % Normal 0-5 [facility] Comment on above: Performed By: #### L 100.0100, L501.9985, L500.2500 ####[facility] [address] [place], [address] Erythrocyte distribution width (RBC) [Ratio] 13.2 % Normal 11.6-14.6 [facility] Comment on above: Performed By: #### L 100.0100, L501.9985, L500.2500 ####[facility] [address] [place], [address] Hematocrit (Bld) [Volume fraction] 39.4 % Normal 37-47 [facility] Comment on above: Performed By: #### L 100.0100, L501.9985, L500.2500 ####[facility] [address] [place], [address] Hemoglobin (Bld) [Mass/Vol] 12.6 g/dL Normal 12.0-15.0 [facility] Comment on above: Performed By: #### L 100.0100, L501.9985, L500.2500 ####[facility] [address] [place], [address] IG% 0.400 Normal 0.0-0.9 [facility] Comment on above: Result Comment: IG% - Immature Granulocytes (promyelocytes, myelocytes and metamyelocytes) > 1% indicates that a LEFT SHIFT is Present. Performed By: #### L 100.0100, L501.9985, L500.2500 ####[facility] [address] [place], [address] Lymphocytes/100 WBC (Bld) 30.4 % Normal 19-41 [facility] Comment on above: Performed By: #### L 100.0100, L501.9985, L500.2500 ####[facility] [address] [place], [address] MCH (RBC) [Entitic mass] 29.0 pg Normal 27.0-32.0 [facility] Comment on above: Performed By: #### L 100.0100, L501.9985, L500.2500 ####[facility] [address] [place], [address] MCHC (RBC) [Mass/Vol] 32.0 g/dL Normal 32-36 [facility] Comment on above: Performed By: #### L 100.0100, L501.9985, L500.2500 ####[facility] [address] [place], [address] MCV (RBC) [Entitic vol] 90.6 fL Normal 81-99 [facility] Comment on above: Performed By: #### L 100.0100, L501.9985, L500.2500 ####[facility] [address] [place], [address] Monocytes/100 WBC (Bld) 9.4 % Normal 0-10 [facility] Comment on above: Performed By: #### L 100.0100, L501.9985, L500.2500 ####[facility] [address] [place], [address] Neutrophils/100 WBC (Bld) 57.6 % Normal 47-70 [facility] Comment on above: Performed By: #### L 100.0100, L501.9985, L500.2500 ####[facility] [address] [place], [address] Nucleated RBC (Bld) [#/Vol] 0 10*3/uL Normal 0-5 [facility] Comment on above: Performed By: #### L 100.0100, L501.9985, L500.2500 ####[facility] [address] [place], [address] Platelet mean volume (Bld) [Entitic vol] 10.5 fL Normal 6.2-12.0 [facility] Comment on above: Performed By: #### L 100.0100, L501.9985, L500.2500 ####[facility] [address] [place], [address] Platelets (Bld) [#/Vol] 297 10*3/uL Normal 150-450 [facility] Comment on above: Performed By: #### L 100.0100, L501.9985, L500.2500 ####[facility] [address] [place], [address] RBC (Bld) [#/Vol] 4.35 10*6/uL Normal 4.2-5.4 [facility] Comment on above: Performed By: #### L 100.0100, L501.9985, L500.2500 ####[facility] [address] [place], [address] RDW SD 43.8 fl Normal 35.1-43.9 [facility] Comment on above: Performed By: #### L 100.0100, L501.9985, L500.2500 ####[facility] [address] [place], [address] WBC (Bld) [#/Vol] 7.7 10*3/uL Normal 4.4-11.0 [facility] Comment on above: Performed By: #### L 100.0100, L501.9985, L500.2500 ####[facility] [address] [place], [address] Hemoglobin A1con 08-04-2024 HbA1c (Bld) [Mass fraction] 7.1 % High 3.8-5.6 [facility] Comment on above: Result Comment: Norm al < 5.7 % Prediabetic 5.7 - 6.4 % Diabetic >or= 6.5 % Please note range changes. Performed By: #### L 100.0100, L501.9985, L500.2500 ####[facility] [address] [place], [address] Liver Profileon 08-04-2024 Albumin [Mass/Vol] 3.5 g/dL Normal 3.2-5.0 [facility] Comment on above: Performed By: #### L 501.9520, L300.3900, L500.3400, L300.4310 #### [facility] [address] [place], [address] ALK P 51 U/L Normal 45-117 [facility] Comment on above: Performed By: #### L 501.9520, L300.3900, L500.3400, L300.4310 #### [facility] [address] [place], [address] ALT [Catalytic activity/Vol] 18 U/L Normal 13-56 [facility] Comment on above: Performed By: #### L 501.9520, L300.3900, L500.3400, L300.4310 #### [facility] [address] [place], [address] AST [Catalytic activity/Vol] 10 U/L Low 15-37 [facility] Comment on above: Performed By: #### L 501.9520, L300.3900, L500.3400, L300.4310 #### [facility] [address] [place], [address] Bilirubin [Mass/Vol] 0.30 mg/dL Normal 0.20-1.00 [facility] Comment on above: Result Comment: For patients on eltrombopag therapy, use of Dimension [place] TBIL is not recommended. Performed By: #### L 501.9520, L300.3900, L500.3400, L300.4310 #### [facility] [address] [place], [address] Bilirubin.direct [Mass/Vol] 0.09 mg/dL Normal 0.00-0.30 [facility] Comment on above: Performed By: #### L 501.9520, L300.3900, L500.3400, L300.4310 #### [facility] [address] [place], [address] Globulin (S) [Mass/Vol] 3.8 g/dL Normal 2.2-4.2 [facility] Comment on above: Performed By: #### L 501.9520, L300.3900, L500.3400, L300.4310 #### [facility] [address] [place], [address] T PROT 7.3 g/dL Normal 6.4-8.2 [facility] Comment on above: Performed By: #### L 501.9520, L300.3900, L500.3400, L300.4310 #### [facility] [address] [place], [address] Partial Thromboplast Timeon 08-04-2024 aPTT Coag (Bld) [Time] 27.5 s Normal 24.1-36.2 [facility] Comment on above: Performed By: #### L 501.9520, L300.3900, L500.3400, L300.4310 #### [facility] [address] [place], [address] Prothrombin Time w/INRon INR Coag (PPP) [Relative time] 0.9 {INR} Normal [facility] Comment on above: Performed By: #### L 501.9520, L300.3900, L500.3400, L300.4310 #### [facility] [address] [place], [address] PT Coag (PPP) [Time] 12.5 s Normal 11.7-14.9 [facility] Comment on above: Performed By: #### L 501.9520, L300.3900, L500.3400, L300.4310 #### [facility] [address] [place], [address] Thyroid Stim Hormone (TSH)on 08-04-2024 TSH 0.030 uIU/mL Low 0.358-3.740 [facility] Comment on above: Performed By: #### L 501.9520, L300.3900, L500.3400, L300.4310 #### [facility] [address] [place], [address] 12 Lead EKGon 04-12-2024 12 Lead EKG [facility] [address] [place] [address] 12 Lead EKG 04/12/24 1307 MR#: [id number] Acct: [id number] Name: ARCENIO RAND Rep #: [id number] : 1965 59 From: Desmond Grady MD Attending Dr: Dr. Hi Echeverria DO Status: PRE [facility] [place] Ordering Dr: Hi Echeverria DO Date: 04/12/24 Location: [facility] [place] Sex: F C Admitted: Test Reason : PREOP Blood Pressure : / mmHG Vent. Rate : 069 BPM Atrial Rate : 069 BPM P-R Int : 168 ms QRS Dur : 078 ms QT Int : 392 ms P-R-T Axes : 075 053 080 degrees QTc Int : 420 ms Normal sinus rhythm Normal ECG Confirmed by DESMOND GRADY MD ([id number]), film and video editor RENETTA HAWK ([id number]) on 04/13/2024 9:44:28 AM Referred By: Hi Echeverria Confirmed By:DESMOND GRADY MD 04/13/24 0944 Date Desmond Grady MD CC: Dr. Hi Echeverria DO; Dr. Ranjeet Goodwin MD Signed Normal [facility] Basic Metabolic Profile (BMP )on 04-12-2024 BUN/CRE 30.0 RATIO High 10-20 [facility] Comment on above: Performed By: #### L 501.080 #### [facility] [address] [place], [address] CA,Total 9.4 mg/dL Normal 8.5-10.1 [facility] Comment on above: Performed By: #### L 501.080 #### [facility] [address] [place], [address] Chloride [Moles/Vol] 101 mmol/L Normal 98-107 [facility] Comment on above: Performed By: #### L 501.080 #### [facility] [address] [place], [address] CO2 [Moles/Vol] 26.0 mmol/L Normal 21.0-32.0 [facility] Comment on above: Performed By: #### L 501.080 #### [facility] [address] [place], [address] Creatinine [Mass/Vol] 1.30 mg/dL High 0.55-1.02 [facility] Comment on above: Result Comment: The validity of the calculated GFR GFRAA in patients over 70 years has not been determined. Clinical correlation is essential. Performed By: #### L 501.080 #### [facility] [address] [place], [address] EST GFR - AA 54 mL/min Low >60 [facility] Comment on above: Result Comment: Afri can [place] GFR Calc Performed By: #### L 501.080 #### [facility] [address] [place], [address] GAP 8 Normal 5-15 [facility] Comment on above: Performed By: #### L 501.080 #### [facility] [address] [place], [address] GFR/1.73 sq M.predicted among non-blacks MDRD (S/P/Bld) [Vol rate/Area] 45 mL/min/{1.73_m2} Low >60 [facility] Comment on above: Result Comment: Non- GFR Calc Performed By: #### L 501.080 #### [facility] [address] [place], [address] Glucose [Mass/Vol] 279 mg/dL High 74-106 [facility] Comment on above: Result Comment: Gluc ose result greater than or equal to 200 mg/dL suggests DIABETES MELLITUS per A.D.A. criteria. Performed By: #### L 501.080 #### [facility] [address] [place], [address] Potassium [Moles/Vol] 3.9 mmol/L Normal 3.5-5.1 [facility] Comment on above: Performed By: #### L 501.080 #### [facility] [address] [place], [address] Sodium [Moles/Vol] 135 mmol/L Low 136-145 [facility] Comment on above: Performed By: #### L 501.080 #### [facility] [address] [place], [address] Urea nitrogen [Mass/Vol] 39 mg/dL High 7-18 [facility] Comment on above: Performed By: #### L 501.080 #### [facility] [address] [place], [address] CBC W/Diff, Automatedon 06- Absolute Lymph 2.63 X10 3/uL Normal 0.83-4.51 [facility] Comment on above: Performed By: #### L 501.080 #### [facility] [address] [place], [address] Absolute Neut 7.1 X10 3/uL Normal 2.0-7.7 [facility] Comment on above: Performed By: #### L 501.080 #### [facility] [address] [place], [address] Basophils/100 WBC (Bld) 0.5 % Normal 0-1 [facility] Comment on above: Performed By: #### L 501.080 #### [facility] [address] [place], [address] Eosinophils/100 WBC (Bld) 1.7 % Normal 0-5 [facility] Comment on above: Performed By: #### L 501.080 #### [facility] [address] [place], [address] Erythrocyte distribution width (RBC) [Ratio] 15.2 % High 11.6-14.6 [facility] Comment on above: Performed By: #### L 501.080 #### [facility] [address] [place], [address] Hematocrit (Bld) [Volume fraction] 43.4 % Normal 37-47 [facility] Comment on above: Performed By: #### L 501.080 #### [facility] [address] [place], [address] Hemoglobin (Bld) [Mass/Vol] 13.6 g/dL Normal 12.0-15.0 [facility] Comment on above: Performed By: #### L 501.080 #### [facility] [address] [place], [address] IG% 0.400 Normal 0.0-0.9 [facility] Comment on above: Result Comment: IG% - Immature Granulocytes (promyelocytes, myelocytes and metamyelocytes) > 1% indicates that a LEFT SHIFT is Present. Performed By: #### L 501.080 #### [facility] [address] [place], [address] Lymphocytes/100 WBC (Bld) 24.3 % Normal 19-41 [facility] Comment on above: Performed By: #### L 501.080 #### [facility] [address] [place], [address] MCH (RBC) [Entitic mass] 27.5 pg Normal 27.0-32.0 [facility] Comment on above: Performed By: #### L 501.080 #### [facility] [address] [place], [address] MCHC (RBC) [Mass/Vol] 31.3 g/dL Low 32-36 [facility] Comment on above: Performed By: #### L 501.080 #### [facility] [address] [place], [address] MCV (RBC) [Entitic vol] 87.9 fL Normal 81-99 [facility] Comment on above: Performed By: #### L 501.080 #### [facility] [address] [place], [address] Monocytes/100 WBC (Bld) 8.1 % Normal 0-10 [facility] Comment on above: Performed By: #### L 501.080 #### [facility] [address] [place], [address] Neutrophils/100 WBC (Bld) 65.0 % Normal 47-70 [facility] Comment on above: Performed By: #### L 501.080 #### [facility] [address] [place], [address] Nucleated RBC (Bld) [#/Vol] 0 10*3/uL Normal 0-5 [facility] Comment on above: Performed By: #### L 501.080 #### [facility] [address] [place], [address] Platelet mean volume (Bld) [Entitic vol] 9.6 fL Normal 6.2-12.0 [facility] Comment on above: Performed By: #### L 501.080 #### [facility] [address] [place], [address] Platelets (Bld) [#/Vol] 325 10*3/uL Normal 150-450 [facility] Comment on above: Performed By: #### L 501.080 #### [facility] [address] [place], [address] RBC (Bld) [#/Vol] 4.94 10*6/uL Normal 4.2-5.4 [facility] Comment on above: Performed By: #### L 501.080 #### [facility] [address] [place], [address] RDW SD 48.3 fl High 35.1-43.9 [facility] Comment on above: Performed By: #### L 501.080 #### [facility] [address] [place], [address] WBC (Bld) [#/Vol] 10.8 10*3/uL Normal 4.4-11.0 [facility] Comment on above: Performed By: #### L 501.080 #### [facility] [address] [place], [address] Hemoglobin A1con 04-12-2024 HbA1c (Bld) [Mass fraction] 7.4 % High 3.8-5.6 [facility] Comment on above: Result Comment: Norm al < 5.7 % Prediabetic 5.7 - 6.4 % Diabetic >or= 6.5 % Please note range changes. Performed By: #### L 501.080 #### [facility] [address] [place], [address] Thyroid Stim Hormone (TSH)on 04-12-2024 TSH 1.03 uIU/mL Normal 0.358-3.74 [facility] Comment on above: Performed By: #### L 501.080 #### [facility] [address] [place], [address] No Panel Informationon 02-08 IMPRESSION: No radiographic evidence of acute osseous injury. 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: ZHANG Transcribe Date/Time: Feb 09 2024 11:30A Dictated by : DANIELLA PHILLIPS MD This examination was interpreted and the report reviewed and electronically signed by: DANIELLA PHILLIPS MD on Feb 09 2024 11:32AM [facility] DIVISION OF RADIOLOGY Radiology Study observation (narrative) [facility] No Panel InformationOrdered By: [facility] Provider on 02-09-2024 [facility] XR Humerus - left AP and Lat eralon 02-09-2024 * * *Final Report* * * DATE OF EXAM: Feb 09 2024 11:24AM WOX 5354 - XR HUMERUS 2V AP/LAT LT / PROCEDURE REASON: Injury of left shoulder, initial encounter * * * * Physician Interpretation * * * * TITLE: XR HUMERUS 2V AP/LAT LT, XR SHLDR >/=3V AP/GAURI AP/OTHR LT CLINICAL INDICATION: Left shoulder and humeral pain. Injury. TECHNIQUE: 3 view radiographic study of the left shoulder and two-view radiographic study of the left humerus COMPARISON: Left shoulder radiograph dated August 20, 2020 FINDINGS: No acute fracture or dislocation identified. Mild acromioclavicular joint space narrowing with subchondral cystic change and mild hypertrophic change. Mild glenohumeral osteoarthritis. Stable soft tissue calcification adjacent to the proximal humeral metadiaphysis. DIVISION OF RADIOLOGY Provider, [facility] [place] - 02/09/2024 * * *Final Report* * * DATE OF EXAM: Feb 09 2024 11:24AM WOX 5354 - XR HUMERUS 2V AP/LAT LT / PROCEDURE REASON: Injury of left shoulder, initial encounter * * * * Physician Interpretation * * * * TITLE: XR HUMERUS 2V AP/LAT LT, XR SHLDR >/=3V AP/GAURI AP/OTHR LT CLINICAL INDICATION: Left shoulder and humeral pain. Injury. TECHNIQUE: 3 view radiographic study of the left shoulder and two-view radiographic study of the left humerus COMPARISON: Left shoulder radiograph dated August 20, 2020 FINDINGS: No acute fracture or dislocation identified. Mild acromioclavicular joint space narrowing with subchondral cystic change and mild hypertrophic change. Mild glenohumeral osteoarthritis. Stable soft tissue calcification adjacent to the proximal humeral metadiaphysis. IMPRESSION IMPRESSION: No radiographic evidence of acute osseous injury. 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: PSCB Transcribe Date/Time: Feb 09 2024 11:30A Dictated by : DANIELLA PHILLIPS MD This examination was interpreted and the report reviewed and electronically signed by: DANIELLA PHILLIPS MD on Feb 09 2024 11:32AM EST [facility] XR Shoulder - left 3 Viewson 02-09-2024 * * *Final Report* * * DATE OF EXAM: Feb 09 2024 11:24AM WOX 5252 - XR SHLDR >/=3V AP/GAURI AP/OTHR LT / PROCEDURE REASON: Injury of left shoulder, initial encounter * * * * Physician Interpretation * * * * TITLE: XR HUMERUS 2V AP/LAT LT, XR SHLDR >/=3V AP/GAURI AP/OTHR LT CLINICAL INDICATION: Left shoulder and humeral pain. Injury. TECHNIQUE: 3 view radiographic study of the left shoulder and two-view radiographic study of the left humerus COMPARISON: Left shoulder radiograph dated August 20, 2020 FINDINGS: No acute fracture or dislocation identified. Mild acromioclavicular joint space narrowing with subchondral cystic change and mild hypertrophic change. Mild glenohumeral osteoarthritis. Stable soft tissue calcification adjacent to the proximal humeral metadiaphysis. DIVISION OF RADIOLOGY Provider, [facility] [place] - 02/09/2024 * * *Final Report* * * DATE OF EXAM: Feb 09 2024 11:24AM WOX [id number] - XR SHLDR >/=3V AP/GAURI AP/OTHR LT / PROCEDURE REASON: Injury of left shoulder, initial encounter * * * * Physician Interpretation * * * * TITLE: XR HUMERUS 2V AP/LAT LT, XR SHLDR >/=3V AP/GAURI AP/OTHR LT CLINICAL INDICATION: Left shoulder and humeral pain. Injury. TECHNIQUE: 3 view radiographic study of the left shoulder and two-view radiographic study of the left humerus COMPARISON: Left shoulder radiograph dated August 20, 2020 FINDINGS: No acute fracture or dislocation identified. Mild acromioclavicular joint space narrowing with subchondral cystic change and mild hypertrophic change. Mild glenohumeral osteoarthritis. Stable soft tissue calcification adjacent to the proximal humeral metadiaphysis. IMPRESSION IMPRESSION: No radiographic evidence of acute osseous injury. 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: PSCB Transcribe Date/Time: Feb 09 2024 11:30A Dictated by : DANIELLA PHILLIPS MD This examination was interpreted and the report reviewed and electronically signed by: DANIELLA PHILLIPS MD on Feb 09 2024 11:32AM EST [facility] No Panel Informationon 01-05 [facility] XR DIGIT GENERAL 3V FRONTAL/ LAT/OBL RIGHTon 08-01-2022 [facility] XR Finger - right AP and Lat eral and obliqueon 08-01-2022 IMPRESSION: No acute osseous abnormality 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: PSCB Transcribe Date/Time: Aug 01 2022 9:25A Dictated by : KHURRAM BYRNE MD This examination was interpreted and the report reviewed and electronically signed by: KHURRAM BYRNE MD on Aug 01 2022 9:28AM [facility] DIVISION OF RADIOLOGY * * *Final Report* * * DATE OF EXAM: Aug 01 2022 9:18AM WOX [id number] - XR DIGIT 3V FRONTAL/LAT/OBL RT / PROCEDURE REASON: Finger pain, right * * * * Physician Interpretation * * * * EXAMINATION: XR DIGIT 3V FRONTAL/LAT/OBL RT CLINICAL HISTORY: Pain in the second digit of the right hand Technique: XR DIGIT 3V FRONTAL/LAT/OBL RT -- RIGHT with 3 views on 3 images Comparison: None RESULT: No acute fracture or dislocation. Joint spaces are maintained. DIVISION OF RADIOLOGY Provider, [facility] - 08/01/2022 * * *Final Report* * * DATE OF EXAM: Aug 01 2022 9:18AM WOX [id number] - XR DIGIT 3V FRONTAL/LAT/OBL RT / PROCEDURE REASON: Finger pain, right * * * * Physician Interpretation * * * * EXAMINATION: XR DIGIT 3V FRONTAL/LAT/OBL RT CLINICAL HISTORY: Pain in the second digit of the right hand Technique: XR DIGIT 3V FRONTAL/LAT/OBL RT -- RIGHT with 3 views on 3 images Comparison: None RESULT: No acute fracture or dislocation. Joint spaces are maintained. IMPRESSION IMPRESSION: No acute osseous abnormality 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: PSCB Transcribe Date/Time: Aug 01 2022 9:25A Dictated by : KHURRAM BYRNE MD This examination was interpreted and the report reviewed and electronically signed by: KHURRAM BYRNE MD on Aug 01 2022 9:28AM EST [facility] Radiology Study observation (narrative) [facility] XR Finger - right AP and Lat eral and obliqueOrdered By: [facility] Provider on 08-01-2022 [facility] ALLIED HEALTHon 05-18-2020 ALLIED HEALTH HNO ID: [id number] Author: [facility]) AUDELIA Bran Service: Radiology Author Type: Clinical Technical Internship Type: Allied Health Filed: 05/18/2020 2:46 PM Note Text: RADIOLOGY SERVICE PROGRESS NOTE SERVICE DATE: 05/18/2020 SERVICE TIME: 2:44 PM PATIENT IDENTITY VERIFICATION COMPLETED USING TWO (2) STANDARD IDENTIFIERS: Name and Date of confirmed by patient verbally FALL SCREENING: Has the patient had 2 falls in the last year or 1 fall with injury or currently using an Ambulatory Assistive Device (Walker, Cane, Wheelchair, Crutches, etc.)? No PATIENT GENDER DATA: .female : No ALLERGIES: Reviewed and unchanged MEDICATIONS REVIEWED: Not applicable PATIENT RELEVANT IMPLANT DATA REVIEWED: Not Applicable CREATININE: Creatinine Date Value Ref Range Status 01/03/2019 0.89 0.58 - 0.96 mg/dL Final eGFR-All Other Races Date Value Ref Range Status 01/03/2019 >60 . Final Comment: eGFR (Estimated GFR) Units of measure: mL/min/1.73 meters squared eGFR is derived from the reexpressed MDRD Study equation using the following parameters: serum creatinine, age, gender and race. The creatinine assay has been calibrated to be traceable to IDMS. An eGFR <60 mL/min/1.73m2 for >3 months is consistent with chronic kidney disease. Refer to KDOQI guidelines for clinical interpretation. In patients with unstable renal function, e.g. those with acute kidney injury, the eGFR may not accurately reflect actual GFR. eGFR- Date Value Ref Range Status 01/03/2019 >60 Final P.O.C.T. RESULTS: N/A May 18, [address] PERFORMED: No IV SITE: Ambulatory: A peripheral IV was started in the Right antecubital site with a Angio cath: 22 gauge. POST EXAM PIV STATUS: Discontinued PROCEDURE TYPE: NM Stress: 15.3mCi [id number] was administered IV for Rest Imaging at 9:35 by ROE Winn. 45.8 mCi [id number] was administered IV for Stress Imaging at 11:05 by ROE Winn. PATIENT DISCHARGED TO: Ambulatory patient, left NV department area. A Diagnostic radioactive procedure has taken place, with no further precautions necessary other than routine body substance precautions. More information regarding radiation safety can be found using this link: [email or web address] [email or web address] SIGNATURE: ROE Winn PATIENT NAME: Arcenio Rand DATE: May 18, 2020 TIME: 2:44 PM PAGER/CONTACT #: [facility] CARDIAC PERF STRESS/PHARM on 05-18-2020 [place] CARDIAC PERF STRESS/PHARM * * *Final Report* * * * * * SEE BOTTOM OF REPORT FOR ADDENDED TEXT * * * DATE OF EXAM: May 18 2020 3:02PM CRYSTAL 0006 - NM CARDIAC PERF STRESS/PHARM / PROCEDURE REASON: R06.02-SOB (shortness of breath) * * * * Physician Interpretation * * * * DEFAULT NUCMED Pt. Name: ARCENIO RAND Pt. : 1965 ID: [id number] Pt. Age: 55 years Study Type: [place] CARDIAC PERF STRESS/PHARM Exam Date: 05/18/2020 Ref. Phys.: Review Date: 05/18/2020 Diag Phys: Presley Mondragon DO Modality: NM Indications: History: Diagnosis: Impression: Summary: Final PATIENT: Name: ARCENIO RAND Age: 55 years Gender: F CONCLUSIONS: Prior Study Comparison No prior nuclear cardiology exam available for comparison. Nuclear Med Report:1-Day Tc-Tetrofosmin Gated SPECT Myocardial Perfusion with Regadenoson Stress: Myocardial perfusion imaging was performed at rest 30 minutes following the IV injection of Tc-99m tetrofosmin. The patient received 0.4 mg of regadenoson, via rapid IV push, immediately followed by Tc-99m tetrofosmin IV. Gated post stress tomographic imaging was performed 30 to 60 minutes later. See administered doses below. [facility] Date of service: 05/18/2020 10:13:57 AM Indication: Chest pain or palpitations, intermediate prob, uninterpretable ECG or cannot exercise. Interpreting physician: Presley Mondragon DO Patient History: History of hypertension, diabetes mellitus and dyslipidemia. Medications currently taking are NSAIDS, insulin, B-belkys, ACEI, statins, anti-depressants and ASA. Height: 152.40 cm BSA: 1.96 m? Weight: 90.72 kg BMI: 39.1 kg/m? Exam Type: Rest Stress Radiopharm: Tc-99m Tetrofosmin Tc-99m Tetrofosmin Dosage(mCi): 15.3 45.8 Atten Correction: not performed not performed Stress Agent: Regadenoson 0.4mg Supply provided from [facility] Resting Heart Rate: 63 bpm Resting Blood Press: 142/73 mmHg FINDINGS: Stress Test Findings: The stress test was terminated due to the following: End of Protocol. Peak HR 91 bpm. (55 % MPHR) Peak BP 166 mmHg/66 mmHg Patient experienced no symptoms during stress. Stress complications: none. Final 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: VANESSA Transcriporfirio Date/Time: May 18 2020 10:13A Dictated by : PRESLEY MONDRAGON DO This examination was interpreted and the report reviewed and electronically signed by: PRESLEY MONDRAGON DO on May 18 2020 3:40PM EST This document has been addended by: PRESLEY MONDRAGON DO on May 18 2020 3:54PM EST [id number] CN Normal [facility] NUCLEAR STRESS LEXISCAN (CAR D)on 05-18-2020 NUCLEAR STRESS LEXISCAN (CARD) NAME : ARCENIO RAND PID : [id number] : 1965 Gender : Female Race : ORD : [id number] Procedure Date : May 18 2020 10:55:55 Edit Date : May 23 2020 07:35:57 Protocol Name : LEXISCAN Time In Exercise Phase : 00:06:00 Max. Systolic BP : 166 mmHg Max Diastolic BP : 66 mmHg Max Heart Rate : 96 BPM Max Predicted Heart Rate : 167 BPM Recovery ECG Response (OLD) : Test Reason : short of breath Location :[facility] Overread By : PRESLEY MONDRAGON D.O. Edited By : NANCY STOKES Referred By : RANJEET GOODWIN Acquired by : ALANA GEORGES [facility] Telephone (CDLBME) ARCENIO RAND ([id number]) 1965 F Date Time Provider Department 05/17/20 JENNY SOLIMAN (RN) [facility] During your visit today, we recorded the following information about you: Jenny Soliman RN, RN 05/17/2020 2:22 PM Signed Given patient instructions for stress in AM Allergies As of Date: 05/17/2020 Noted Allergy Reaction AMOXICILLIN 07/15/2018 14 - Other: See Comments PENICILLINS 07/15/2018 14 - Other: See Comments SULFA (SULFONAMIDE ANTIBIOTICS) 04/12/2019 2 - Rash Comments: AND dry heaves. 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] Prescriptions as of 05/17/2020 Sig: LEVOTHYROXINE 50 MCG TABLET Take 1 tablet by mouth once d* INSULIN GLARGINE (U-100) 100 * Inject 35 Units subcutaneousl* OMEPRAZOLE 20 MG CAPSULE,FUNMILAYO* Take 1 capsule by mouth once * ATENOLOL 100 MG TABLET Take 1 tablet by mouth once d* LISINOPRIL 20 MG TABLET Take 1 tablet by mouth once d* ATORVASTATIN 20 MG TABLET Take 1 tablet by mouth daily * PIOGLITAZONE 15 MG TABLET Take 1 tablet by mouth once d* SITAGLIPTIN 100 MG TABLET Take 1 tablet by mouth once d* EMPAGLIFLOZIN 25 MG TABLET Take 1 tablet by mouth once d* METFORMIN ER 500 MG TABLET,EX* Take 2 tablet by mouth twice * ESTRADIOL 1 MG TABLET Take 1 tablet by mouth once d* MELOXICAM 15 MG TABLET Take 1 tablet by mouth once d* DULOXETINE 60 MG CAPSULE,FUNMILAYO* Take 1 capsule by mouth once * CYANOCOBALAMIN (VIT B-12) 1,0* Take 1 tablet by mouth once d* HYDROXYZINE HCL 25 MG TABLET Take 1 tablet by mouth every * BLOOD SUGAR DIAGNOSTIC STRIPS Test blood sugar(s) 2 times d* PEN NEEDLE, DIABETIC 32 GAUGE* Use to inject insulin once da* CHOLECALCIFEROL (VITAMIN D3) * Take 1 capsule by mouth once * LANCETS One Touch Test blood sugar(s* MULTIVITAMIN ORAL Take 1 tablet by mouth once d* ASPIRIN 81 MG TABLET,DELAYED * Take 81 mg by mouth once jeff* COMPOUNDED PRESCRIPTION Diabetic shoes Problem List As Of Date 05/17/2020 Noted Resolved Arthralgia [M25.50] 07/15/2018 Hypothyroidism [E03.9] 07/15/2018 Insomnia [G47.00] 07/15/2018 Vitamin B 12 deficiency [E53.8] 07/15/2018 More... Depression [F32.9] 07/15/2018 Essential hypertension, benign [I10] 07/15/2018 Hyperlipemia [E78.5] 07/15/2018 Type II diabetes mellitus, uncontrolled (HCC) [*07/15/2018 Developmental delay [R62.50] 08/17/2018 Pulmonary hypertension (HCC) [I27.20] 02/24/2019 Severe sleep apnea [G47.30] 03/25/2019 More... Encounter Status:Closed by JENNY SOLIMAN on 05/17/20 [facility] Hemoglobin A1c/Hemoglobin.total mass fraction (Bld) 7.6 % High 4.3-6.0 [facility] [place] Comment on above: Performed By: #### L [phone] ####[facility] [id number] [place], [place] [address]Gb# [phone] Office Visiton 03-09-2017 Documentation of current medications (procedure) Done Invalid Interpretation Code [facility] ([place] [place] Work Phone: Tobacco smoking status NHIS Current every day smoker [facility] [place] Work Phone: Tobacco use CP Current every day smoker Invalid Interpretation Code [facility] [place] Work Phone: Office Visiton 01-26-2017 Documentation of current medications (procedure) Done Invalid Interpretation Code [facility] [place] Work Phone: Tobacco use CP Current every day smoker Invalid Interpretation Code [facility] [place] Work Phone: Vital Signs Date Time Vital Sign Value Performing Clinician Facility 04-20-2025 15:40-0400 Body mass index (BMI) [Ratio] 34.01 kg/m2 Krislyn Aberegg PA Work Phone: [facility] 04-20-2025 15:40-0400 Body temperature 97.3 [degF] Krislyn Aberegg PA Work Phone: [facility] 04-20-2025 15:40-0400 Body weight 79 kg Krislyn Aberegg PA Work Phone: [facility] 04-20-2025 15:40-0400 Diastolic blood pressure 85 mm[Hg] Krislyn Aberegg PA Work Phone: [facility] 04-20-2025 15:40-0400 Heart rate 73 /min Krislyn Aberegg PA Work Phone: [facility] 04-20-2025 15:40-0400 Respiratory rate 18 /min Krislyn Aberegg PA Work Phone: [facility] 04-20-2025 15:40-0400 SaO2% (BldA) [Mass fraction] 99 % Krislyn Aberegg PA Work Phone: [facility] 04-20-2025 15:40-0400 Systolic blood pressure 127 mm[Hg] Krislyn Aberegg PA Work Phone: [facility] 01-16-2025 10:36-0400 Body mass index (BMI) [Ratio] 33.59 kg/m2 Ranjeet Goodwin MD Work Phone: [facility] 01-16-2025 10:36-0400 Body weight 78.02 kg Ranjeet Goodwin MD Work Phone: [facility] 01-16-2025 10:36-0400 Diastolic blood pressure 72 mm[Hg] Ranjeet Goodwin MD Work Phone: [facility] 01-16-2025 10:36-0400 Heart rate 61 /min Ranjeet Goodwin MD Work Phone: [facility] 01-16-2025 10:36-0400 SaO2% (BldA) [Mass fraction] 96 % Ranjeet Goodwin MD Work Phone: [facility] 01-16-2025 10:36-0400 Systolic blood pressure 122 mm[Hg] Ranjeet Goodwin MD Work Phone: [facility] 12-26-2024 12:10-0500 Body mass index (BMI) [Ratio] 33.67 kg/m2 Angelo Clutter PA-C Work Phone: [facility] 12-26-2024 12:10-0500 Body temperature 97.59 [degF] Angelo Clutter PA-C Work Phone: [facility] 12-26-2024 12:10-0500 Body weight 78.2 kg Angelo Clutter PA-C Work Phone: [facility] 12-26-2024 12:10-0500 Diastolic blood pressure 68 mm[Hg] Angelo Clutter PA-C Work Phone: [facility] 12-26-2024 12:10-0500 Heart rate 64 /min Angelo Clutter PA-C Work Phone: [facility] 12-26-2024 12:10-0500 Respiratory rate 16 /min Angelo Clutter PA-C Work Phone: [facility] 12-26-2024 12:10-0500 SaO2% (BldA) [Mass fraction] 98 % Angelo Clutter PA-C Work Phone: [facility] 12-26-2024 12:10-0500 Systolic blood pressure 110 mm[Hg] Angelo Dasilvamargarita LAURENT Work Phone: [facility] 11-28-2024 11:26-0500 Body mass index (BMI) [Ratio] 33.67 kg/m2 Chyna Beto WEIGHT SHIFTER.METAL PICKLING EQUIPMENT OPERATOR Work Phone: [facility] 11-28-2024 11:26-0500 Body weight 78.2 kg Chyna Beto WEIGHT SHIFTER.METAL PICKLING EQUIPMENT OPERATOR Work Phone: [facility] 11-28-2024 11:26-0500 Diastolic blood pressure 75 mm[Hg] Chyna Beto WEIGHT SHIFTER.METAL PICKLING EQUIPMENT OPERATOR Work Phone: [facility] 11-28-2024 11:26-0500 Heart rate 68 /min Chyna Beto WEIGHT SHIFTER.METAL PICKLING EQUIPMENT OPERATOR Work Phone: [facility] 11-28-2024 11:26-0500 Respiratory rate 18 /min Chyna Beto WEIGHT SHIFTER.METAL PICKLING EQUIPMENT OPERATOR Work Phone: [facility] 11-28-2024 11:26-0500 SaO2% (BldA) [Mass fraction] 96 % Chyna Beto WEIGHT SHIFTER.METAL PICKLING EQUIPMENT OPERATOR Work Phone: [facility] 11-28-2024 11:26-0500 Systolic blood pressure 133 mm[Hg] Chyna Beto WEIGHT SHIFTER.METAL PICKLING EQUIPMENT OPERATOR Work Phone: [facility] 11-21-2024 15:54-0500 Body mass index (BMI) [Ratio] 34.01 kg/m2 Grzegorz Ortiz MD Work Phone: [facility] 11-21-2024 15:54-0500 Body temperature 97.9 [degF] Grzgeorz Ortiz MD Work Phone: [facility] 11-21-2024 15:54-0500 Body weight 79 kg Grzegorz Ortiz MD Work Phone: [facility] 11-21-2024 15:54-0500 Diastolic blood pressure 78 mm[Hg] Grzegorz Ortiz MD Work Phone: [facility] 11-21-2024 15:54-0500 Heart rate 78 /min Grzegorz Ortiz MD Work Phone: [facility] 11-21-2024 15:54-0500 Respiratory rate 18 /min Grzegorz Ortiz MD Work Phone: [facility] 11-21-2024 15:54-0500 SaO2% (BldA) [Mass fraction] 100 % Grzegorz Ortiz MD Work Phone: [facility] 11-21-2024 15:54-0500 Systolic blood pressure 110 mm[Hg] Grzegorz Ortiz MD Work Phone: [facility] 11-03-2024 15:52-0500 Body mass index (BMI) [Ratio] 34.44 kg/m2 Gabbie Harvey WEIGHT SHIFTER.METAL PICKLING EQUIPMENT OPERATOR Work Phone: [facility] 11-03-2024 15:52-0500 Body temperature 97 [degF] Gabbie Harvey WEIGHT SHIFTER.METAL PICKLING EQUIPMENT OPERATOR Work Phone: [facility] 11-03-2024 15:52-0500 Body weight 80 kg Gabbie Harvey WEIGHT SHIFTER.METAL PICKLING EQUIPMENT OPERATOR Work Phone: [facility] 11-03-2024 15:52-0500 Diastolic blood pressure 84 mm[Hg] Gabbie Harvey WEIGHT SHIFTER.METAL PICKLING EQUIPMENT OPERATOR Work Phone: [facility] 11-03-2024 15:52-0500 Heart rate 64 /min Gabbie Harvey WEIGHT SHIFTER.METAL PICKLING EQUIPMENT OPERATOR Work Phone: [facility] 11-03-2024 15:52-0500 Respiratory rate 18 /min Gabbie Harvey WEIGHT SHIFTER.METAL PICKLING EQUIPMENT OPERATOR Work Phone: [facility] 11-03-2024 15:52-0500 SaO2% (BldA) [Mass fraction] 100 % Gabbie Harvey WEIGHT SHIFTER.METAL PICKLING EQUIPMENT OPERATOR Work Phone: [facility] 11-03-2024 15:52-0500 Systolic blood pressure 138 mm[Hg] Gabbie Harvey WEIGHT SHIFTER.METAL PICKLING EQUIPMENT OPERATOR Work Phone: [facility] 06-06-2024 10:42-0400 Body mass index (BMI) [Ratio] 34.57 kg/m2 Ranjeet Goodwin MD Work Phone: [facility] 06-06-2024 10:42-0400 Body weight 80.29 kg Ranjeet Goodwin MD Work Phone: [facility] 06-06-2024 10:42-0400 Diastolic blood pressure 78 mm[Hg] Ranjeet Goodwin MD Work Phone: [facility] 06-06-2024 10:42-0400 Heart rate 67 /min Ranjeet Goodwin MD Work Phone: [facility] 06-06-2024 10:42-0400 Respiratory rate 16 /min Ranjeet Goodwin MD Work Phone: [facility] 06-06-2024 10:42-0400 SaO2% (BldA) [Mass fraction] 100 % Ranjeet Goodwin MD Work Phone: [facility] 06-06-2024 10:42-0400 Systolic blood pressure 134 mm[Hg] Ranjeet Goodwin MD Work Phone: [facility] 06-06-2024 10:03-0400 Body mass index (BMI) [Ratio] 34.7 kg/m2 Chyna Beto WEIGHT SHIFTER.METAL PICKLING EQUIPMENT OPERATOR Work Phone: [facility] 06-06-2024 10:03-0400 Body weight 80.6 kg Chyna Beto WEIGHT SHIFTER.METAL PICKLING EQUIPMENT OPERATOR Work Phone: [facility] 06-06-2024 10:03-0400 Diastolic blood pressure 82 mm[Hg] Chyna Ebto WEIGHT SHIFTER.METAL PICKLING EQUIPMENT OPERATOR Work Phone: [facility] 06-06-2024 10:03-0400 Heart rate 64 /min Chyna Beto WEIGHT SHIFTER.METAL PICKLING EQUIPMENT OPERATOR Work Phone: [facility] 06-06-2024 10:03-0400 Respiratory rate 16 /min Chyna Beto WEIGHT SHIFTER.METAL PICKLING EQUIPMENT OPERATOR Work Phone: [facility] 06-06-2024 10:03-0400 SaO2% (BldA) [Mass fraction] 99 % Chyna Beto WEIGHT SHIFTER.METAL PICKLING EQUIPMENT OPERATOR Work Phone: [facility] 06-06-2024 10:03-0400 Systolic blood pressure 148 mm[Hg] Chyna Beto WEIGHT SHIFTER.METAL PICKLING EQUIPMENT OPERATOR Work Phone: [facility] 04-12-2024 14:04-0400 Body mass index (BMI) [Ratio] 35.35 kg/m2 Odalys Haradha WEIGHT SHIFTER.METAL PICKLING EQUIPMENT OPERATOR Work Phone: [facility] 04-12-2024 14:04-0400 Body weight 82.1 kg Odalys Brock WEIGHT SHIFTER.METAL PICKLING EQUIPMENT OPERATOR Work Phone: [facility] 04-12-2024 14:04-0400 Diastolic blood pressure 74 mm[Hg] Odalys Brock WEIGHT SHIFTER.METAL PICKLING EQUIPMENT OPERATOR Work Phone: [facility] 04-12-2024 14:04-0400 Heart rate 62 /min Odalys Hernandezagen WEIGHT SHIFTER.METAL PICKLING EQUIPMENT OPERATOR Work Phone: [facility] 04-12-2024 14:04-0400 Respiratory rate 16 /min Odalys Hernandezagen WEIGHT SHIFTER.METAL PICKLING EQUIPMENT OPERATOR Work Phone: [facility] 04-12-2024 14:04-0400 SaO2% (BldA) [Mass fraction] 96 % Odalys Brock WEIGHT SHIFTER.METAL PICKLING EQUIPMENT OPERATOR Work Phone: [facility] 04-12-2024 14:04-0400 Systolic blood pressure 122 mm[Hg] Odalys Haagen WEIGHT SHIFTER.METAL PICKLING EQUIPMENT OPERATOR Work Phone: [facility] 03-07-2024 15:55-0400 Body mass index (BMI) [Ratio] 36.44 kg/m2 Adelaide Donovan WEIGHT SHIFTER.ANKLE PATCH MOLDER Work Phone: [facility] 03-07-2024 15:55-0400 Body weight 84.64 kg Adelaide Donovan WEIGHT SHIFTER.ANKLE PATCH MOLDER Work Phone: [facility] 05-13-2024 15:55-0400 Diastolic blood pressure 80 mm[Hg] Adelaide Suppan WEIGHT SHIFTER.ANKLE PATCH MOLDER Work Phone: [facility] 03-07-2024 15:55-0400 Heart rate 65 /min Adelaide Suppan WEIGHT SHIFTER.ANKLE PATCH MOLDER Work Phone: [facility] 03-07-2024 15:55-0400 SaO2% (BldA) [Mass fraction] 97 % Adelaide Suppan WEIGHT SHIFTER.ANKLE PATCH MOLDER Work Phone: [facility] 03-07-2024 15:55-0400 Systolic blood pressure 148 mm[Hg] Adelaide Suppan WEIGHT SHIFTER.ANKLE PATCH MOLDER Work Phone: [facility] 02-29-2024 14:33-0400 Body mass index (BMI) [Ratio] 37.22 kg/m2 Chyna Beto WEIGHT SHIFTER.METAL PICKLING EQUIPMENT OPERATOR Work Phone: [facility] 02-29-2024 14:33-0400 Body weight 86.46 kg Chyna Beto WEIGHT SHIFTER.METAL PICKLING EQUIPMENT OPERATOR Work Phone: [facility] 02-29-2024 14:33-0400 Heart rate 66 /min Chyna Beto WEIGHT SHIFTER.METAL PICKLING EQUIPMENT OPERATOR Work Phone: [facility] 02-29-2024 14:33-0400 Respiratory rate 18 /min Chyna Beto WEIGHT SHIFTER.METAL PICKLING EQUIPMENT OPERATOR Work Phone: [facility] 02-29-2024 14:33-0400 SaO2% (BldA) [Mass fraction] 100 % Chyna Beto WEIGHT SHIFTER.METAL PICKLING EQUIPMENT OPERATOR Work Phone: [facility] 02-15-2024 14:26-0400 Diastolic blood pressure 84 mm[Hg] Ranjeet Goodwin MD Work Phone: [facility] 02-15-2024 14:26-0400 Systolic blood pressure 180 mm[Hg] Ranjeet Goodwin MD Work Phone: [facility] 02-15-2024 13:57-0400 Body height 152.4 cm Ranjeet Goodwin MD Work Phone: [facility] 02-15-2024 13:57-0400 Body mass index (BMI) [Ratio] 36.91 kg/m2 Ranjeet Goodwin MD Work Phone: [facility] 02-15-2024 13:57-0400 Body weight 85.73 kg Ranjeet Goodwin MD Work Phone: [facility] 02-15-2024 13:57-0400 Heart rate 67 /min Ranjeet Goodwin MD Work Phone: [facility] 02-15-2024 13:57-0400 SaO2% (BldA) [Mass fraction] 98 % Ranjeet Goodwin MD Work Phone: [facility] 02-09-2024 10:51-0400 Body temperature 97.39 [degF] Augustine Pendleosiel WEIGHT SHIFTER.METAL PICKLING EQUIPMENT OPERATOR Work Phone: [facility] 02-09-2024 10:51-0400 Body weight 85.47 kg Augustine Pendjerica WEIGHT SHIFTER.METAL PICKLING EQUIPMENT OPERATOR Work Phone: [facility] 02-09-2024 10:51-0400 Diastolic blood pressure 82 mm[Hg] Augustine Pendlebury WEIGHT SHIFTER.METAL PICKLING EQUIPMENT OPERATOR Work Phone: [facility] 02-09-2024 10:51-0400 Heart rate 65 /min Augustine Pendleosiel WEIGHT SHIFTER.METAL PICKLING EQUIPMENT OPERATOR Work Phone: [facility] 02-09-2024 10:51-0400 Respiratory rate 18 /min Augustine Pendleosiel WEIGHT SHIFTER.METAL PICKLING EQUIPMENT OPERATOR Work Phone: [facility] 02-09-2024 10:51-0400 SaO2% (BldA) [Mass fraction] 97 % Augustine Pendleosiel WEIGHT SHIFTER.METAL PICKLING EQUIPMENT OPERATOR Work Phone: [facility] 02-09-2024 10:51-0400 Systolic blood pressure 138 mm[Hg] Augustine Pendleosiel WEIGHT SHIFTER.METAL PICKLING EQUIPMENT OPERATOR Work Phone: [facility] 12-07-2023 14:10-0500 Body height 152.4 cm Ranjeet Goodwin MD Work Phone: [facility] 12-07-2023 14:10-0500 Body weight 86.64 kg Ranjeet Goodwin MD Work Phone: [facility] 12-07-2023 14:10-0500 Diastolic blood pressure 78 mm[Hg] Ranjeet Goodwin MD Work Phone: [facility] 12-07-2023 14:10-0500 Heart rate 60 /min Ranjeet Goodwin MD Work Phone: [facility] 12-07-2023 14:10-0500 SaO2% (BldA) [Mass fraction] 97 % Ranjeet Goodwin MD Work Phone: [facility] 12-07-2023 14:10-0500 Systolic blood pressure 112 mm[Hg] Ranjeet Goodwin MD Work Phone: [facility] 05-11-2023 10:38-0400 Body weight 89.81 kg Ranjeet Goodwin MD Work Phone: [facility] 05-11-2023 10:38-0400 Diastolic blood pressure 82 mm[Hg] Ranjeet Goodwin MD Work Phone: [facility] 05-11-2023 10:38-0400 Heart rate 64 /min Ranjeet Goodwin MD Work Phone: [facility] 05-11-2023 10:38-0400 SaO2% (BldA) [Mass fraction] 100 % Ranjeet Goodwin MD Work Phone: [facility] 05-11-2023 10:38-0400 Systolic blood pressure 120 mm[Hg] Ranjeet Goodwin MD Work Phone: [facility] 01-07-2023 17:59-0400 Diastolic blood pressure 69 mm[Hg] [facility] 01-07-2023 17:59-0400 Heart rate 73 /min [facility] 01-07-2023 17:59-0400 Respiratory rate 15 /min [facility] 01-07-2023 17:59-0400 SaO2% (BldA) [Mass fraction] 96 % [facility] 01-07-2023 17:59-0400 Systolic blood pressure 131 mm[Hg] [facility] 01-07-2023 16:02-0400 Body mass index (BMI) [Ratio] 39 kg/m2 [facility] 01-07-2023 16:02-0400 Body weight 90.3 kg [facility] 01-07-2023 16:00-0400 Body height 152.4 cm [facility] 01-07-2023 16:00-0400 Body temperature 97 [degF] [facility] 12-15-2022 09:14-0500 Diastolic blood pressure 78 mm[Hg] Odalys Brock WEIGHT SHIFTER.METAL PICKLING EQUIPMENT OPERATOR Work Phone: [facility] 12-15-2022 09:14-0500 Heart rate 59 /min Odalys Brock WEIGHT SHIFTER.METAL PICKLING EQUIPMENT OPERATOR Work Phone: [facility] 12-15-2022 09:14-0500 Respiratory rate 18 /min Odalys Brock WEIGHT SHIFTER.METAL PICKLING EQUIPMENT OPERATOR Work Phone: [facility] 12-15-2022 09:14-0500 SaO2% (BldA) [Mass fraction] 97 % Odalys Brock WEIGHT SHIFTER.METAL PICKLING EQUIPMENT OPERATOR Work Phone: [facility] 12-15-2022 09:14-0500 Systolic blood pressure 118 mm[Hg] Odalys Brock WEIGHT SHIFTER.METAL PICKLING EQUIPMENT OPERATOR Work Phone: [facility] 11-10-2022 10:04-0500 Body height 152.4 cm Ranjeet Goodwin MD Work Phone: [facility] 11-10-2022 10:04-0500 Body weight 91.08 kg Ranjeet Goodwin MD Work Phone: [facility] 11-10-2022 10:04-0500 Diastolic blood pressure 88 mm[Hg] Ranjeet Goodwin MD Work Phone: [facility] 11-10-2022 10:04-0500 Heart rate 68 /min Ranjeet Goodwin MD Work Phone: [facility] 11-10-2022 10:04-0500 SaO2% (BldA) [Mass fraction] 99 % Ranjeet Goodwin MD Work Phone: [facility] 11-10-2022 10:04-0500 Systolic blood pressure 170 mm[Hg] Ranjeet Goodwin MD Work Phone: [facility] 10-10-2022 10:52-0500 Diastolic blood pressure 94 mm[Hg] Odalys Haagen WEIGHT SHIFTER.METAL PICKLING EQUIPMENT OPERATOR Work Phone: [facility] 10-10-2022 10:52-0500 Heart rate 59 /min Odalys Haagen WEIGHT SHIFTER.METAL PICKLING EQUIPMENT OPERATOR Work Phone: [facility] 10-10-2022 10:52-0500 Respiratory rate 18 /min Odalys Haagen WEIGHT SHIFTER.METAL PICKLING EQUIPMENT OPERATOR Work Phone: [facility] 10-10-2022 10:52-0500 SaO2% (BldA) [Mass fraction] 96 % Odalys Haagen WEIGHT SHIFTER.METAL PICKLING EQUIPMENT OPERATOR Work Phone: [facility] 10-10-2022 10:52-0500 Systolic blood pressure 138 mm[Hg] Odalys Haagen WEIGHT SHIFTER.METAL PICKLING EQUIPMENT OPERATOR Work Phone: [facility] 08-12-2022 10:57-0400 Body weight 88.91 kg Odalys Haagen WEIGHT SHIFTER.METAL PICKLING EQUIPMENT OPERATOR Work Phone: [facility] 08-12-2022 10:57-0400 Diastolic blood pressure 82 mm[Hg] Odalys Haagen WEIGHT SHIFTER.METAL PICKLING EQUIPMENT OPERATOR Work Phone: [facility] 08-12-2022 10:57-0400 Heart rate 59 /min Odalys Haagen WEIGHT SHIFTER.METAL PICKLING EQUIPMENT OPERATOR Work Phone: [facility] 08-12-2022 10:57-0400 Respiratory rate 18 /min Odalys Haagen WEIGHT SHIFTER.METAL PICKLING EQUIPMENT OPERATOR Work Phone: [facility] 08-12-2022 10:57-0400 SaO2% (BldA) [Mass fraction] 98 % Odalys Haagen WEIGHT SHIFTER.METAL PICKLING EQUIPMENT OPERATOR Work Phone: [facility] 08-12-2022 10:57-0400 Systolic blood pressure 128 mm[Hg] Odalys Haagen WEIGHT SHIFTER.METAL PICKLING EQUIPMENT OPERATOR Work Phone: [facility] 08-01-2022 08:53-0400 Body temperature 97.9 [degF] Grzegorz Ortiz MD Work Phone: [facility] 08-01-2022 08:53-0400 Body weight 90.36 kg Grzegorz Ortiz MD Work Phone: [facility] 08-01-2022 08:53-0400 Diastolic blood pressure 78 mm[Hg] Grzegorz Ortiz MD Work Phone: [facility] 08-01-2022 08:53-0400 Heart rate 64 /min Grzegorz Ortiz MD Work Phone: [facility] 08-01-2022 08:53-0400 Respiratory rate 18 /min Grzegorz Ortiz MD Work Phone: [facility] 08-01-2022 08:53-0400 SaO2% (BldA) [Mass fraction] 100 % Grzegorz Ortiz MD Work Phone: [facility] 08-01-2022 08:53-0400 Systolic blood pressure 122 mm[Hg] Grzegorz Ortiz MD Work Phone: [facility] 07-08-2022 15:21-0400 Body weight 89.36 kg Odalys Haagen WEIGHT SHIFTER.METAL PICKLING EQUIPMENT OPERATOR Work Phone: [facility] 07-08-2022 15:21-0400 Diastolic blood pressure 90 mm[Hg] Odalys Haagen WEIGHT SHIFTER.METAL PICKLING EQUIPMENT OPERATOR Work Phone: [facility] 07-08-2022 15:21-0400 Heart rate 55 /min Odalys Haagen WEIGHT SHIFTER.METAL PICKLING EQUIPMENT OPERATOR Work Phone: [facility] 07-08-2022 15:21-0400 Respiratory rate 18 /min Odalys Haagen WEIGHT SHIFTER.METAL PICKLING EQUIPMENT OPERATOR Work Phone: [facility] 07-08-2022 15:21-0400 SaO2% (BldA) [Mass fraction] 96 % Odalys Haagen WEIGHT SHIFTER.METAL PICKLING EQUIPMENT OPERATOR Work Phone: [facility] 07-08-2022 15:21-0400 Systolic blood pressure 134 mm[Hg] Odalys Haagen WEIGHT SHIFTER.METAL PICKLING EQUIPMENT OPERATOR Work Phone: [facility] 05-05-2022 09:58-0400 Body temperature 97.39 [degF] Ranjeet Goodwin MD Work Phone: [facility] 05-05-2022 09:58-0400 Body weight 91.54 kg Ranjeet Goodwin MD Work Phone: [facility] 05-05-2022 09:58-0400 Diastolic blood pressure 84 mm[Hg] Ranjeet Goodwin MD Work Phone: [facility] 05-05-2022 09:58-0400 Heart rate 65 /min Ranjeet Goodwin MD Work Phone: [facility] 05-05-2022 09:58-0400 Respiratory rate 16 /min Ranjeet Goodwin MD Work Phone: [facility] 05-05-2022 09:58-0400 SaO2% (BldA) [Mass fraction] 99 % Ranjeet Goodwin MD Work Phone: [facility] 05-05-2022 09:58-0400 Systolic blood pressure 118 mm[Hg] Ranjeet Goodwin MD Work Phone: [facility] 03-25-2022 09:47-0400 Body weight 91.54 kg Odalys Haagen WEIGHT SHIFTER.METAL PICKLING EQUIPMENT OPERATOR Work Phone: [facility] 03-25-2022 09:47-0400 Diastolic blood pressure 82 mm[Hg] Odlays Haagen WEIGHT SHIFTER.METAL PICKLING EQUIPMENT OPERATOR Work Phone: [facility] 03-25-2022 09:47-0400 Heart rate 68 /min Odalys Haagen WEIGHT SHIFTER.METAL PICKLING EQUIPMENT OPERATOR Work Phone: [facility] 03-25-2022 09:47-0400 Respiratory rate 16 /min Odalys Haagen WEIGHT SHIFTER.METAL PICKLING EQUIPMENT OPERATOR Work Phone: [facility] 03-25-2022 09:47-0400 SaO2% (BldA) [Mass fraction] 98 % Odalys Haagen WEIGHT SHIFTER.METAL PICKLING EQUIPMENT OPERATOR Work Phone: [facility] 05-31-2022 09:47-0400 Systolic blood pressure 138 mm[Hg] Odalys Brock JIM Work Phone: [facility] 01-20-2022 09:03-0400 Body temperature 96.6 [degF] Ranjeet Shields Jr., MD Work Phone: [facility] 01-20-2022 09:03-0400 Body weight 89.81 kg Ranjeet Shields Jr., MD Work Phone: [facility] 01-20-2022 09:03-0400 Diastolic blood pressure 78 mm[Hg] Ranjeet Shields Jr., MD Work Phone: [facility] 01-20-2022 09:03-0400 Heart rate 62 /min Ranjeet Shields Jr., MD Work Phone: [facility] 01-20-2022 09:03-0400 Respiratory rate 18 /min Ranjeet Shields Jr., MD Work Phone: [facility] 01-20-2022 09:03-0400 SaO2% (BldA) [Mass fraction] 100 % Ranjeet Shields Jr., MD Work Phone: [facility] 01-20-2022 09:03-0400 Systolic blood pressure 136 mm[Hg] Ranjeet Shields Jr., MD Work Phone: [facility] 01-26-2017 08:59-0400 BMI (Body Mass Index) 36.13 kg/m2 [facility] Work Phone: 01-26-2017 08:59-0400 Body weight 83.92 kg [facility] Work Phone: 01-26-2017 08:59-0400 Height 152.4 cm [facility] Work Phone: 01-26-2017 08:59-0400 Weight 83.92 kg [facility] Work Phone: Encounters Encounter Date Encounter Type Care Provider Facility Start: 08-14-2025 End: 08-14-2025 ambulatory RANJEET GOODWIN Facility:[facility] Start: 08-14-2025 End: 08-14-2025 ambulatory RANJEET GOODWIN Facility:[facility] Start: 07-11-2025 End: 07-11-2025 Refill Ranjeet Goodwin MD Work Phone: [facility] [place] Comment on above: Refill Request Start: 06-09-2025 End: 06-09-2025 Refill Ranjeet Goodwin MD Work Phone: [facility] Comment on above: Refill Request Start: 05-16-2025 End: 05-16-2025 Refill Ranjeet Goodwin MD Work Phone: [facility] [place] Comment on above: Refill Request Start: 04-20-2025 End: 04-20-2025 Subsequent hospital visit by physician Jakob [facility] Work Phone: Radiology Comment on above: Acute midline low ba ck pain without sciatica [M54.50] Start: 04-20-2025 End: 04-20-2025 Patient encounter procedure Ilda ROBERTS Work Phone: [facility] Comment on above: Acute midline low ba ck pain without sciatica (Primary Dx) Start: 04-20-2025 End: 04-20-2025 ambulatory ILDA EPSTEIN Facility:[facility] Start: 04-13-2025 End: 04-13-2025 Refill Ranjeet oGodwin MD Work Phone: [facility] [place] Comment on above: Refill Request Start: 03-02-2025 End: 03-02-2025 Refill Ranjeet Goodwin MD Work Phone: [facility] [place] Comment on above: Refill Request Start: 01-31-2025 End: 04-02-2025 Follow-up encounter Ranjeet Goodwin MD Work Phone: [facility] Start: 2025 End: 2025 ambulatory RANJEET GOODWIN Facility:[facility] Start: 2025 End: 2025 Subsequent hospital visit by physician Screen Mammo [facility] Mammogram Start: 01-25-2025 End: 01-25-2025 Refill Ranjeet Goodwin MD Work Phone: [facility] [place] Comment on above: Refill Request Start: 01-24-2025 End: 01-27-2025 Follow-up encounter Ranjeet Goodwin MD Work Phone: 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 [place] Start: 01-17-2025 End: 01-17-2025 Telephone encounter Ranjeet Goodwin MD Work Phone: 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) (Primary Dx); Essential hypertension, benign; Mixed hyperlipidemia; HIMANSHU on CPAP; Vitamin B 12 deficiency; Microalbuminuria; Acquired hypothyroidism; Depression, unspecified depression type; Renal insufficiency; Encounter for immunization; Abrasion of left great toe, initial encounter; Uncontrolled type 2 diabetes mellitus with hypoglycemia, unspecified hypoglycemia coma status (HCC) Start: 01-10-2025 End: 01-10-2025 ambulatory [facility] Facility:[facility] Start: 12-28-2024 End: 12-29-2024 Follow-up encounter Gabbie Harvey APRN.METAL PICKLING EQUIPMENT OPERATOR Work Phone: [facility] Start: 12-26-2024 End: 12-26-2024 ambulatory [facility] Facility:[facility] Start: 12-26-2024 End: 12-26-2024 Office outpatient visit 25 minutes Angelo Etienne PA-C Work Phone: [facility] Comment on above: Urinary frequency (P rimary Dx); Acute UTI Start: 12-23-2024 End: 12-26-2024 Orders Only Ranjeet Goodwin MD Work Phone: [facility]ment [facility] Comment on above: Visit for screening mammogram (Primary Dx) Start: 12-22-2024 End: 12-22-2024 Refill Ranjeet Goodwin MD Work Phone: [facility] Comment on above: Refill Request Start: 12-01-2024 End: 12-01-2024 Refill Ranjeet Goodwin MD Work Phone: [facility] Comment on above: Refill Request Start: 11-28-2024 End: 11-28-2024 Patient encounter procedure Chyna Pérez APRN.METAL PICKLING EQUIPMENT OPERATOR Work Phone: Neurology Comment on above: HIMANSHU on CPAP (Primary Dx) Start: 11-28-2024 End: 11-28-2024 ambulatory SELF Facility:[facility] Start: 11-22-2024 End: 11-22-2024 Telephone encounter Demetra Bautista APRN.METAL PICKLING EQUIPMENT OPERATOR Work Phone: [facility] Comment on above: Results Start: 11-21-2024 End: 11-21-2024 ambulatory [facility] Facility:[facility] Start: 11-21-2024 End: 11-21-2024 Office outpatient visit 15 minutes Grzegorz Ortiz MD Work Phone: [facility] Comment on above: Viral URI (Primary D x) Start: 11-03-2024 End: 11-03-2024 ambulatory [facility] Facility:[facility] Start: 11-03-2024 End: 11-03-2024 Patient encounter procedure Gabbie Harvey WEIGHT SHIFTER.METAL PICKLING EQUIPMENT OPERATOR Work Phone: [facility] Comment on above: Conjunctivitis of ri ght eye, unspecified conjunctivitis type (Primary Dx); Acute otitis media, right Start: 10-06-2024 End: 10-06-2024 Refill Ranjeet Goodwin MD Work Phone: [facility] Comment on above: Refill Request Start: 09-20-2024 End: 09-20-2024 ambulatory Demetra Leiva [facility] Start: 09-20-2024 End: 09-20-2024 Patient encounter procedure Demetra Leiva MA [facility] Comment on above: Population Health Na vigation Outreach ([facility] Start: 09-15-2024 Encounter for other preprocedural examination [facility] Start: 08-17-2024 Encounter for other preprocedural examination Jorge Alberto Khanna [facility] Start: 08-11-2024 End: 08-18-2024 ambulatory [facility] Facility:[facility] Start: 08-09-2024 End: 08-09-2024 Refill Ranjeet Goodwin MD Work Phone: [facility] Comment on above: Refill Request Start: 07-07-2024 End: 07-07-2024 Refill Ranjeet Goodwin MD Work Phone: [facility] Comment on above: Refill Request Start: 06-17-2024 End: 06-17-2024 Refill Adelaide Donovan APRN.METAL PICKLING EQUIPMENT OPERATOR Work Phone: [facility] Comment on above: Refill Request Start: 06-15-2024 End: 06-16-2024 Refill Ranjeet Goodwin MD Work Phone: [facility] Comment on above: Refill Request Start: 06-07-2024 Telephone encounter Ranjeet Goodwin MD Work Phone: [facility] Comment on above: Results Start: 06-06-2024 End: 06-06-2024 Patient encounter procedure Ranjeet Goodwin MD Work Phone: [facility] Comment on above: Type 2 diabetes luis angel itus with diabetic neuropathy, 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) (Primary Dx); Essential hypertension, benign; HIMANSHU on CPAP; Vitamin B 12 deficiency; Microalbuminuria; Acquired hypothyroidism; Depression, unspecified depression type; Developmental delay; Hyperlipidemia, unspecified hyperlipidemia type; Encounter for screening examination for other mental health and behavioral disorders HIMANSHU on CPAP (Primary Dx) Start: 05-19-2024 Refill Ranjeet Goodwin MD Work Phone: [facility] Comment on above: Refill Request Start: 05-17-2024 Refill Charles Walker on PA-C Work Phone: [facility] Comment on above: Refill Request Start: 04-14-2024 Refill Ranjeet Goodwin MD Work Phone: [facility] Comment on above: Refill Request Start: 04-12-2024 End: 04-12-2024 Patient encounter procedure Odalys Brock APRN.METAL PICKLING EQUIPMENT OPERATOR Work Phone: [facility] Comment on above: Preop examination (P rimary Dx); Acute pain of left shoulder; Open wound of skin Start: 04-12-2024 End: 04-12-2024 Preprocedural examination done Odalys Brock APRN.CNP Work Phone: [facility] Work Phone: Start: 04-12-2024 End: 04-21-2024 ambulatory [facility] Facility:[facility] Start: 04-01-2024 Telephone encounter Chyna barraza APRN.METAL PICKLING EQUIPMENT OPERATOR Work Phone: Neurology Start: 03-07-2024 End: 03-07-2024 Office outpatient visit 15 minutes Adelaide Donovan APRN.ANKLE PATCH MOLDER Work Phone: [facility] Comment on above: Essential hypertensi on, benign (Primary Dx); Tinea pedis of left foot Start: 02-29-2024 End: 02-29-2024 Patient encounter procedure Chyna Pérez APRN.METAL PICKLING EQUIPMENT OPERATOR Work Phone: Neurology Comment on above: HIMANSHU (obstructive sle ep apnea) Start: 02-25-2024 Telephone encounter Neurology Provid er Neurology Start: 02-18-2024 Refill Ranjeet Goodwin MD Work Phone: [facility] Comment on above: Refill Request Start: 02-15-2024 End: 02-15-2024 Patient encounter procedure Ranjeet Goodwin MD Work Phone: [facility] [place] Comment on above: Acute pain of left s houlder (Primary Dx); Dermatitis; Primary hypertension; Type 2 diabetes mellitus with diabetic neuropathy, unspecified whether halfway insulin use (HCC) Start: 02-09-2024 End: 02-09-2024 Subsequent hospital visit by physician Xr [facility] Work Phone: Radiology Comment on above: Injury of left shoul gregory, initial encounter [S49.92XA] Start: 02-09-2024 End: 02-09-2024 Office outpatient visit 15 minutes Augustine Arthur APRN.CNP Work Phone: [facility] Comment on above: Injury of left shoul gregory, initial encounter (Primary Dx) Start: 01-29-2024 Refill Ranjeet Goodwin MD Work Phone: [facility] [place] Comment on above: Refill Request Start: 01-15-2024 ambulatory Ketty Kaplan MA [facility] Comment on above: Population Health Na vigation Outreach ([employer] care gaps) Start: 01-12-2024 Documentation procedure Mammog jenna Coordinator [facility] Start: 01-12-2024 Letter encounter Mammography Coordinator [facility] Department Start: 01-11-2024 End: 01-11-2024 Subsequent hospital visit by physician Screen Mammo [facility] Comment on above: Encounter for screen ing mammogram for malignant neoplasm of breast [Z12.31] Start: 12-23-2023 Refill Ranjeet Goodwin MD Work Phone: [facility] Comment on above: Refill Request Start: 12-07-2023 End: 12-07-2023 Patient encounter procedure Ranjeet Goodwin MD Work Phone: [facility] Comment on above: Type 2 diabetes luis angel itus with diabetic neuropathy, 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) (Primary Dx); Essential hypertension, benign; Mixed hyperlipidemia; Vitamin B 12 deficiency; Acquired hypothyroidism; Depression, unspecified depression type; HIMANSHU (obstructive sleep apnea); Microalbuminuria; Encounter for screening mammogram for malignant neoplasm of breast; Intertrigo Start: 09-09-2023 Refill Ranjeet Goodwin MD Work Phone: [facility] [place] Comment on above: Refill Request Start: 07-10-2023 Refill Ranjeet Goodwin MD Work Phone: [facility] [place] Comment on above: Refill Request Start: 06-19-2023 Refill Ranjeet Goodwin MD Work Phone: [facility] [place] Comment on above: Refill Request Start: 06-15-2023 Refill Ranjeet Goodwin MD Work Phone: [facility] [place] Comment on above: Refill Request Start: 05-12-2023 Telephone encounter Ranjeet Goodwin MD Work Phone: [facility] Comment on above: Results Start: 05-11-2023 End: 05-11-2023 Patient encounter procedure Ranjeet Goodwin MD Work Phone: [facility] Comment on above: Type 2 diabetes luis angel itus with diabetic neuropathy, 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) (Primary Dx); Acquired hypothyroidism; Insomnia, unspecified type; Depression, unspecified depression type; Developmental delay; Vitamin B 12 deficiency; Severe sleep apnea; Essential hypertension, benign; Mixed hyperlipidemia Start: 04-20-2023 Refill Ranjeet Goodwin MD Work Phone: [address] [place] [address] Comment on above: Refill Request Start: 04-17-2023 Refill Ranjeet Goodwin MD Work Phone: [facility] Comment on above: Refill Request Start: 04-16-2023 Refill Ranjeet Goodwin MD Work Phone: [facility] [place] Comment on above: Refill Request Start: 03-06-2023 Telephone encounter Ranjeet Goodwin MD Work Phone: [facility] [place] Comment on above: Forms Start: 02-20-2023 Refill Ranjeet Goodwin MD Work Phone: [facility] [place] Comment on above: Refill Request Start: 01-29-2023 Refill Ranjeet Goodwin MD Work Phone: [facility] [place] Comment on above: Refill Request Start: 01-07-2023 End: 01-07-2023 Emergency department patient visit [facility] Start: 01-06-2023 Documentation procedure Mammog jenna Coordinator [facility] Start: 01-06-2023 Letter encounter Mammography Coordinator [facility] Department Start: 01-05-2023 End: 01-05-2023 Subsequent hospital visit by physician Screen Mammo [facility] Comment on above: Encounter for screen ing mammogram for malignant neoplasm of breast [Z12.31] Start: 12-18-2022 ambulatory Odalys Brock APRN.CNP Work Phone: [facility] [place] Comment on above: Chronic pain Start: 12-15-2022 End: 12-15-2022 Subsequent hospital visit by physician Screen Mammo [facility] Comment on above: Canceled (CC cx: Equ ipment, Prep, Appropriateness) Start: 12-15-2022 End: 12-15-2022 Office outpatient visit 15 minutes Odalys Brock APRN.METAL PICKLING EQUIPMENT OPERATOR Work Phone: [facility] [place] Comment on above: Essential hypertensi on, benign (Primary Dx); Open wound of skin Start: 11-27-2022 Refill Ranjeet Goodwin MD Work Phone: [facility] [place] Comment on above: Refill Request Start: 11-24-2022 ambulatory Ranjeet Goodwin MD Work Phone: [facility] [place] Comment on above: BP still elevated Start: 11-10-2022 End: 11-10-2022 Patient encounter procedure Ranjeet Goodwin MD Work Phone: [facility] [place] Comment on above: Type 2 diabetes luis angel itus with diabetic neuropathy, unspecified whether halfway insulin use (HCC) (Primary Dx); Mixed hyperlipidemia; Essential hypertension, benign; Severe sleep apnea; Vitamin B 12 deficiency; Acquired hypothyroidism; Depression, unspecified depression type; Encounter for screening mammogram for malignant neoplasm of breast Start: 10-30-2022 Refill Ranjeet Goodwin MD Work Phone: [address] [place] [address] Comment on above: Refill Request Start: 10-10-2022 End: 10-10-2022 Office outpatient visit 15 minutes Odalys Brock WEIGHT SHIFTER.METAL PICKLING EQUIPMENT OPERATOR Work Phone: Family Medicine [place] Comment on above: Open wound of skin ( Primary Dx); Encounter for immunization; Type 2 diabetes mellitus with diabetic neuropathy, without long-term current use of insulin (HCC); Hyperlipidemia, unspecified hyperlipidemia type; Acquired hypothyroidism Start: 10-08-2022 Refill Ranjeet Goodwin MD Work Phone: [address] [place] [address] Comment on above: Refill Request Start: 10-02-2022 Refill Ranjeet Goodwin MD Work Phone: [facility] [place] Comment on above: Refill Request Start: 09-05-2022 Refill Ranjeet Goodwin MD Work Phone: [facility] [place] Comment on above: Refill Request Start: 09-03-2022 ambulatory [facility] Comment on above: Population Health Na vigation Outreach ([facility]) Start: 08-12-2022 End: 08-12-2022 Office outpatient visit 15 minutes Odalys Brock APRN.METAL PICKLING EQUIPMENT OPERATOR Work Phone: Family [facility] [place] Comment on above: Acute pain of left s norbertulder (Primary Dx) Start: 08-08-2022 Refill Ranjeet Goodwin MD Work Phone: [facility] [place] Comment on above: Refill Request Start: 08-01-2022 End: 08-01-2022 Subsequent hospital visit by physician Jakob [facility] [place] Work Phone: Radiology Comment on above: Finger pain, right [ M79.644] Start: 08-01-2022 End: 08-01-2022 Patient encounter procedure Grzegorz Ortiz MD Work Phone: [facility] [facility] Comment on above: Finger pain, right ( Primary Dx) Start: 07-11-2022 Refill Ranjeet Goodwin MD Work Phone: [facility] [place] Comment on above: Refill Request Start: 07-08-2022 End: 07-08-2022 Office outpatient visit 15 minutes Odalys Brock APRN.METAL PICKLING EQUIPMENT OPERATOR Work Phone: [facility] [place] Comment on above: Chronic left shoulde r pain (Primary Dx) Start: 07-04-2022 Refill Ranjeet Goodwin MD Work Phone: [facility] Comment on above: Refill Request Start: 06-17-2022 ambulatory Odalys Brock WEIGHT SHIFTER.METAL PICKLING EQUIPMENT OPERATOR Work Phone: [facility] [place] Start: 06-17-2022 Patient encounter procedure Odalys Brock APRN.METAL PICKLING EQUIPMENT OPERATOR Work Phone: [facility] [place] Comment on above: Appointment Start: 06-16-2022 ambulatory Ranjeet Goodwin MD Work Phone: [facility] [place] Start: 06-16-2022 Patient encounter procedure Ranjeet Goodwin MD Work Phone: [facility] Comment on above: Appointment Start: 06-13-2022 Refill Charles Walker on PA-C Work Phone: [facility] [place] Comment on above: Refill Request Start: 05-05-2022 End: 05-05-2022 ambulatory Norman Murguia [facility] Physical Therapy Comment on above: Neck pain (Primary D x); Chronic bilateral low back pain without sciatica; Cervical radiculopathy Start: 05-05-2022 End: 05-05-2022 Patient encounter procedure Ranjeet Goodwin MD Work Phone: [facility] Comment on above: Abrasion (Primary Dx ); Uncontrolled type 2 diabetes mellitus with hypoglycemia, unspecified hypoglycemia coma status (HCC); Type 2 diabetes mellitus with diabetic neuropathy, 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); Essential hypertension, benign; Mixed hyperlipidemia; Severe sleep apnea; Vitamin B 12 deficiency; Acquired hypothyroidism; Depression, unspecified depression type Start: 04-18-2022 Refill Ranjeet Goodwin MD Work Phone: [facility] Comment on above: Refill Request Start: 04-01-2022 End: 04-01-2022 ambulatory Norman Murguia [facility] Physical Therapy Comment on above: Neck pain; Chronic bilateral low back pain without sciatica Start: 03-25-2022 End: 03-25-2022 Office outpatient visit 15 minutes Odalys Brock APRN.METAL PICKLING EQUIPMENT OPERATOR Work Phone: [facility] [place] Comment on above: Neck pain (Primary D x); Chronic bilateral low back pain without sciatica Start: 03-03-2022 Refill Ranjeet Goodwin MD Work Phone: [facility] [place] Comment on above: Refill Request Start: 02-25-2022 Refill Ranjeet Goodwin MD Work Phone: [facility] Comment on above: Refill Request Start: 02-12-2022 ambulatory Ranjeet Goodwin MD Work Phone: [facility] Comment on above: RX for diabetic shoe s and orthotics Start: 01-20-2022 End: 01-20-2022 Patient encounter procedure Ranjeet Shields MD Work Phone: Neurology Comment on above: HIMANSHU (obstructive sle ep apnea) (Primary Dx); Class 2 obesity with body mass index (BMI) of 38.0 to 38.9 in adult, unspecified obesity type, unspecified whether serious comorbidity present Start: 05-09-2021 Telephone encounter Ranjeet Goodwin MD Work Phone: [facility] Comment on above: Printed Rx's needed Start: 09-03-2017 Ambulatory Jax Wahl Facilit y:[facility] Procedures Date Procedure Procedure Detail Performing Clinician Start: 04-20-2025 Radex spine lumbosac ral 2/3 views Ilda ROBERTS Work Phone: Start: 01-16-2025 PFIZER-BIONTKagera COVI D-19 VACCINE AGE 12+ YR (COMIRNATY) Ranjeet Goodwin MD Work Phone: Start: 12-26-2024 Urnls dip stick/tabl et rgnt auto w/o microscopy Demetra Bautista APRN.METAL PICKLING EQUIPMENT OPERATOR Work Phone: Start: 02-09-2024 Radex humerus minimu m 2 views Augustine Arthur WEIGHT SHIFTER.METAL PICKLING EQUIPMENT OPERATOR Work Phone: Start: 01-07-2023 Plain X-ray of shoulder Start: 01-07-2023 Radiologic examinati on of knee Start: 01-05-2023 End: 01-05-2023 Mammography Ranjeet Goodwin MD Work Phone: Start: 10-10-2022 INFLUENZA VACCINE QUADRIVALENT 6 MO - 64 YRS IM Odalys Brock WEIGHT SHIFTER.METAL PICKLING EQUIPMENT OPERATOR Work Phone: Start: 08-01-2022 Radex fingr minimum 2 views Grzegorz Ortiz MD Work Phone: Start: 12-16-2021 Mammography Ranjeet bella Jr., MD Work Phone: Start: 09-23-2018 Colonoscopy Ranjeet bella Jr., MD Work Phone: Start: 03-09-2017 End: 03-09-2017 Documentation of current medications Gabbie Noriega Plan of Treatment Date Care Activity Detail Author Start: 04-25-2031 Urine microalbumin profile [facility] Start: 09-23-2028 Colonoscopy COLONOSCOPY [facility] Start: 09-23-2028 COLORECTAL CANCER SCREENING COLORECTAL CANCER SCREENING [facility] Start: 09-23-2028 Screening for malign ant neoplasm of colon [facility] Start: 06-08-2026 Glaucoma screening Dilated Retinal E xam [facility] Start: 2026 Screening for malign ant neoplasm of breast Mammogram Screening [facility] Start: 01-16-2026 Annual PCP Team Ball Rolling Machine Operator daljit Disease Visit Annual PCP Team Chronic Disease Visit [facility] Start: 01-16-2026 BP Controlled (<130/80) BP Controlle d (<130/80) [facility] Start: 01-16-2026 Diabetic foot examination Diabetic Foot Exam [facility] Start: 01-10-2026 Hepatitis B screening Urine Al bumin:Creatinine Ratio [facility] Start: 01-10-2026 Hepatitis B surface antibody level LDL Cholesterol [facility] Start: 12-26-2025 BP Controlled (<130/80) BP Controlle d (<130/80) [facility] Start: 11-29-2025 End: 11-29-2025 Patient encounter procedure Neurology Comment on above: Follow up, mask is g iving irritation around her face Start: 11-21-2025 BP Controlled (<130/80) BP Controlle d (<130/80) [facility] Start: 08-14-2025 End: 08-14-2025 Patient encounter procedure 08/14/2025 10:20 AM EDT Office Visit [facility] [place] [address] [place], [place] [address] Ranjeet Goodwin MD [address] [place] [address] 6 mo Family [facility] [place] Comment on above: 6 mo Start: 07-13-2025 Hemoglobin A1c measurement HbA1C [facility] Start: 06-26-2025 Influenza vaccination C [facility] Start: 06-06-2025 Annual PCP Team Ball Rolling Machine Operator daljit Disease Visit Annual PCP Team Chronic Disease Visit [facility] Start: 06-06-2025 Anxiety Screening Anxiety Screening [facility] Start: 06-06-2025 Diabetic foot examination Diabetic Foot Exam [facility] Start: 06-06-2025 Hepatitis B Vaccine (1 of 3 - 19+ 3-dose series) Hepatitis B Vaccine (1 of 3 - 19+ 3-dose series) [facility] Comment on above: Postponed from 01/30 (Declined at this time) Start: 06-06-2025 Pneumococcal vaccination Pneumococcal Vaccine (2 of 2 - PCV) [facility] Comment on above: Postponed from 09/19 (Declined at this time) Start: 06-06-2025 Shingrix Vaccine (1 of 2) Shingrix Vaccine (1 of 2) [facility] Comment on above: Postponed from 01/30 (Declined at this time) Start: 05-17-2025 Glaucoma screening Dilated Retinal E xam [facility] Start: 04-24-2025 Influenza vaccination Influenza Vacc ine (#1) [facility] Comment on above: Postponed from 06/26 (Declined at this time) Start: 04-12-2025 Annual PCP Team Ball Rolling Machine Operator daljit Disease Visit Annual PCP Team Chronic Disease Visit [facility] Start: 04-12-2025 BP Controlled (<130/80) BP Controlle d (<130/80) [facility] Start: 02-14-2025 Annual PCP Team Ball Rolling Machine Operator daljit Disease Visit Annual PCP Team Chronic Disease Visit [facility] Start: 2025 End: 2025 Patient encounter procedure 2025 10:10 AM EDT Appointment Mammogram [address] [place] [address] screening mammogram Mammogram Comment on above: screening mammogram Start: 01-23-2025 End: 01-23-2025 Patient encounter procedure 01/23/2025 1:00 PM EDT Appointment Radiology [address] [place] [address] Stage 3a chronic kidney disease (HCC) [N18.31] Radiology Comment on above: Stage 3a chronic kid norm disease (HCC) [N18.31] Start: 01-17-2025 End: 04-18-2025 Basic metabolic 2000 panel - Serum or Plasma BASIC METABOLIC PANEL Lab Routine Stage 3a chronic kidney disease (HCC) Expected: 01/17/2025, Expires: 04/18/2025 [facility] Work Phone: Comment on above: Expected: 01/17/2025 , Expires: 04/18/2025 Start: 01-17-2025 End: 04-18-2025 Urinalysis complete panel - Urine URINALYSIS, WITH MICROSCOPIC Lab Routine Stage 3a chronic kidney disease (HCC) Expected: 01/17/2025, Expires: 04/18/2025 [facility] Comment on above: Expected: 01/17/2025 , Expires: 04/18/2025 Start: 01-16-2025 End: 04-17-2025 Basic metabolic 2000 panel - Serum or Plasma [facility] Work Phone: Comment on above: Expected: 01/16/2025 , Expires: 04/17/2025 Start: 01-16-2025 End: 01-16-2025 Patient encounter procedure 01/16/2025 10:40 AM EDT Office Visit [facility] [place] [address] [place] [address] Ranjeet Goodwin MD [address] [place] [address] 6 month follow up Family Gael [facility] Comment on above: 6 month follow up Start: 01-10-2025 Screening for malign ant neoplasm of breast Mammogram Screening [facility] Start: 12-19-2024 End: 12-19-2024 Patient encounter procedure 12/19/2024 11:00 AM EST Office Visit Family Gael Murguia [address] [place] [address] Ranjeet Goodwin MD [address] [place] [address] 6 month follow up Family Gael [facility] Comment on above: 6 month follow up Start: 12-07-2024 Annual PCP Team Ball Rolling Machine Operator daljit Disease Visit Annual PCP Team Chronic Disease Visit [facility] Start: 12-07-2024 BP Controlled (<130/80) BP Controlle d (<130/80) [facility] Start: 12-07-2024 End: 03-08-2025 CBC W Auto Differential panel - Blood COMPLETE BLOOD COUNT AND DIFFERENTIAL Lab Routine Type 2 diabetes mellitus with diabetic neuropathy, 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) Expected: 12/07/2024, Expires: 03/08/2025 [facility] Comment on above: Expected: 12/07/2024 , Expires: 03/08/2025 Start: 12-07-2024 End: 03-08-2025 Cobalamin (Vitamin B12) [Mass/volume] in Serum or Plasma VITAMIN B12 Lab Routine Vitamin B 12 deficiency Expected: 12/07/2024, Expires: 03/08/2025 [facility] Comment on above: Expected: 12/07/2024 , Expires: 03/08/2025 Start: 12-07-2024 End: 03-08-2025 Comprehensive metabolic 2000 panel - Serum or Plasma COMPREHENSIVE METABOLIC PANEL Lab Routine Type 2 diabetes mellitus with diabetic neuropathy, unspecified whether halfway insulin use (HCC) Expected: 12/07/2024, Expires: 03/08/2025 [facility] Comment on above: Expected: 12/07/2024 , Expires: 03/08/2025 Start: 12-07-2024 End: 03-08-2025 Hemoglobin A1c in Blood HEMOGLOBIN A1C Lab Routine Type 2 diabetes mellitus with diabetic neuropathy, 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) Expected: 12/07/2024, Expires: 03/08/2025 [facility] Comment on above: Expected: 12/07/2024 , Expires: 03/08/2025 Start: 12-07-2024 End: 03-08-2025 Lipid 1996 panel - Serum or Plasma LIPID PANEL BASIC Lab Routine Hyperlipidemia, unspecified hyperlipidemia type Expected: 12/07/2024, Expires: 03/08/2025 [facility] Comment on above: Expected: 12/07/2024 , Expires: 03/08/2025 Start: 12-07-2024 End: 03-08-2025 Microalbumin/Creatinine [Mass Ratio] in Urine ALBUMIN/CREATININE RATIO, URINE Lab Routine Type 2 diabetes mellitus with diabetic neuropathy, 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) Expected: 12/07/2024, Expires: 03/08/2025 [facility] Comment on above: Expected: 12/07/2024 , Expires: 03/08/2025 Start: 11-28-2024 End: 11-28-2024 Patient encounter procedure 11/28/2024 11:30 AM EST Office Visit Neurology [address] [place], [place] [id number] Chyna Pérez, WEIGHT SHIFTER.METAL PICKLING EQUIPMENT OPERATOR [address] [place] [address] Follow up, mask is giving irritation around her face Neurology Comment on above: Follow up, mask is g iving irritation around her face Start: 11-24-2024 Hemoglobin A1c measurement HbA1C [facility] Start: 11-23-2024 Hepatitis B screening Urine Al bumin:Creatinine Ratio [facility] Start: 11-23-2024 Hepatitis B surface antibody level LDL Cholesterol [facility] Start: 10-26-2024 Medicare Advantage Annual Wellness Visit Medicare Advantage Annual Wellness Visit [facility] Start: 06-26-2024 Covid-19 Vaccine () Covid-19 Vaccine () [facility] Start: 06-26-2024 Influenza vaccination Influenza Vacc ine (#1) [facility] Start: 06-07-2024 End: 09-06-2024 Basic metabolic 2000 panel - Serum or Plasma BASIC METABOLIC PANEL Lab Routine Renal insufficiency Expected: 06/07/2024, Expires: 09/06/2024 [facility] Work Phone: Comment on above: Expected: 06/07/2024 , Expires: 09/06/2024 Start: 06-07-2024 End: 09-06-2024 Urinalysis complete panel - Urine URINALYSIS, WITH MICROSCOPIC Lab Routine Renal insufficiency Expected: 06/07/2024, Expires: 09/06/2024 [facility] Comment on above: Expected: 06/07/2024 , Expires: 09/06/2024 Start: 06-06-2024 End: 09-05-2024 Basic metabolic 2000 panel - Serum or Plasma [facility] Work Phone: Comment on above: Expected: 06/06/2024 , Expires: 09/05/2024 Start: 06-06-2024 End: 09-05-2024 Hemoglobin A1c in Blood HGB A1C Lab Routine Type 2 diabetes mellitus with diabetic neuropathy, 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) Expected: 06/06/2024, Expires: 09/05/2024 [facility] Work Phone: Comment on above: Expected: 06/06/2024 , Expires: 09/05/2024 Start: 06-06-2024 End: 09-05-2024 Hepatic function 2000 panel - Serum or Plasma [facility] Comment on above: Expected: 06/06/2024 , Expires: 09/05/2024 Start: 06-06-2024 End: 09-05-2024 Thyrotropin [Units/volume] in Serum or Plasma [facility] Comment on above: Expected: 06/06/2024 , Expires: 09/05/2024 Start: 06-06-2024 End: 06-06-2024 Patient encounter procedure [facility] [place] Comment on above: 6 Month follow up 3 month follow up Start: 05-23-2024 Hemoglobin A1c measurement HbA1C [facility] Start: 05-12-2024 Glaucoma screening Dilated Retinal E xam [facility] Start: 07-18-2024 Hepatitis C antibody , confirmatory test DILATED RETINAL EXAM [facility] Start: 05-11-2024 3 comp foot exam completed DIABETIC FOOT EXAM [facility] Start: 05-11-2024 ANNUAL PCP TEAM FRENCH POLISHER DALJIT DISEASE VISIT ANNUAL PCP TEAM CHRONIC DISEASE VISIT [facility] Start: 05-11-2024 COVID-19 VACCINE (4 - Pfizer series) COVID-19 VACCINE (4 - Pfizer series) [facility] Comment on above: Postponed from 12/25 (Declined at this time) Start: 05-11-2024 Diabetic foot examination Diabetic Foot Exam [facility] Start: 05-11-2024 HEPATITIS B (1 of 3 - 3-dose series) HEPATITIS B (1 of 3 - 3-dose series) [facility] Comment on above: Postponed from 01/30 (Declined at this time) Start: 05-11-2024 Hepatitis B Vaccine (1 of 3 - 19+ 3-dose series) Hepatitis B Vaccine (1 of 3 - 19+ 3-dose series) [facility] Comment on above: Postponed from 01/30 (Declined at this time) Start: 05-11-2024 Hepatitis B Vaccine (1 of 3 - 3-dose series) Hepatitis B Vaccine (1 of 3 - 3-dose series) [facility] Comment on above: Postponed from 01/30 (Declined at this time) Start: 05-11-2024 PNEUMOCOCCAL (2 - PCV) PNEUMOCOCCAL (2 - PCV) [facility] Comment on above: Postponed from 09/19 (Declined at this time) Start: 05-11-2024 Pneumococcal vaccination [facility] Comment on above: Postponed from 09/19 (Declined at this time) Start: 05-11-2024 SHINGRIX VACCINE (1 of 2) SHINGRIX VACCINE (1 of 2) [facility] Comment on above: Postponed from 01/30 (Declined at this time) Start: 04-19-2024 End: 04-19-2024 Patient encounter procedure 04/19/2024 2:20 PM EDT Office Visit Family [facility] [place] [address] [place], [place] [id number] Adelaide Donovan APRN.ANKLE PATCH MOLDER [address], [place] [id number] 1 month f/u [facility] [place] Comment on above: 1 month f/u Start: 03-14-2024 End: 03-14-2024 Patient encounter procedure 03/14/2024 2:00 PM EDT Office Visit [facility] [place] [address] [place] [address] Adelaide Donovan WEIGHT SHIFTER.ANKLE PATCH MOLDER [address] [place], [place] [id number] 4 wk follow up [facility] [place] Comment on above: 4 wk follow up Start: 03-08-2024 Hemoglobin A1c/Hemoglobin.total in Blood HbA1C [facility] Start: 02-29-2024 End: 02-29-2024 Patient encounter procedure 02/29/2024 2:30 PM EDT Office Visit Neurology [address] [place], [place] [id number] Chyna Pérez, SUE.METAL PICKLING EQUIPMENT OPERATOR [address] [place] [address] HIMANSHU (obstructive sleep apnea) [G47.33] Neurology Comment on above: HIMANSHU (obstructive sle ep apnea) [G47.33] Start: 01-06-2024 Mammography [facility] Start: 01-06-2024 Screening for malign ant neoplasm of breast Mammogram Screening [facility] Start: 12-15-2023 ANNUAL PCP TEAM FRENCH POLISHER DALJIT DISEASE VISIT ANNUAL PCP TEAM CHRONIC DISEASE VISIT [facility] Start: 12-15-2023 BP CONTROLLED (<130/80) BP CONTROLLE D (<130/80) [facility] Start: 11-11-2023 Hemoglobin A1c/Hemoglobin.total in Blood HBA1C [facility] Start: 11-10-2023 3 comp foot exam completed DIABETIC FOOT EXAM [facility] Start: 11-10-2023 ANNUAL PCP TEAM FRENCH POLISHER DALJIT DISEASE VISIT ANNUAL PCP TEAM CHRONIC DISEASE VISIT [facility] Start: 11-01-2023 Hepatitis B screening URINE AL BUMIN:CREATININE RATIO [facility] Start: 11-01-2023 Hepatitis B surface antibody level LDL CHOLESTEROL [facility] Start: 10-10-2023 ANNUAL PCP TEAM FRENCH POLISHER DALJIT DISEASE VISIT ANNUAL PCP TEAM CHRONIC DISEASE VISIT [facility] Start: 08-12-2023 ANNUAL PCP TEAM FRENCH POLISHER DALJIT DISEASE VISIT ANNUAL PCP TEAM CHRONIC DISEASE VISIT [facility] Start: 08-12-2023 End: 10-12-2023 Hemoglobin A1c in Blood HGB A1C Lab Routine Type 2 diabetes mellitus with diabetic neuropathy, unspecified whether halfway insulin use (HCC) Expected: 08/12/2023, Expires: 10/12/2023 [facility] Work Phone: Comment on above: Expected: 08/12/2023 , Expires: 10/12/2023 Start: 08-01-2023 BP CONTROLLED (<130/80) BP CONTROLLE D (<130/80) [facility] Start: 07-08-2023 ANNUAL PCP TEAM FRENCH POLISHER DALJIT DISEASE VISIT ANNUAL PCP TEAM CHRONIC DISEASE VISIT [facility] Start: 06-26-2023 Covid-19 Vaccine () Covid-19 Vaccine () [facility] Start: 06-26-2023 Influenza vaccination C [facility] Start: 05-13-2023 Hepatitis C antibody , confirmatory test DILATED RETINAL EXAM [facility] Start: 05-10-2023 End: 07-10-2023 Basic metabolic 2000 panel - Serum or Plasma BASIC METABOLIC PNL Lab Routine Essential hypertension, benign Expected: 05/10/2023, Expires: 07/10/2023 [facility] Work Phone: Comment on above: Expected: 05/10/2023 , Expires: 07/10/2023 Start: 05-10-2023 End: 07-10-2023 CBC W Auto Differential panel - Blood CBC + DIFF Lab Routine Essential hypertension, benign Expected: 05/10/2023, Expires: 07/10/2023 [facility] Work Phone: Comment on above: Expected: 05/10/2023 , Expires: 07/10/2023 Start: 05-10-2023 End: 07-10-2023 Cobalamin (Vitamin B12) [Mass/volume] in Serum or Plasma VITAMIN B12 BLOOD Lab Routine Vitamin B 12 deficiency Expected: 05/10/2023, Expires: 07/10/2023 [facility] Work Phone: Comment on above: Expected: 05/10/2023 , Expires: 07/10/2023 Start: 05-10-2023 End: 07-10-2023 Hemoglobin A1c in Blood HGB A1C Lab Routine Type 2 diabetes mellitus with diabetic neuropathy, 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) Expected: 05/10/2023, Expires: 07/10/2023 [facility] Work Phone: Comment on above: Expected: 05/10/2023 , Expires: 07/10/2023 Start: 05-05-2023 ANNUAL PCP TEAM FRENCH POLISHER DALJIT DISEASE VISIT ANNUAL PCP TEAM CHRONIC DISEASE VISIT [facility] Start: 05-05-2023 Hepatitis B screening URINE AL BUMIN:CREATININE RATIO [facility] Start: 05-01-2023 Hemoglobin A1c/Hemoglobin.total in Blood HBA1C [facility] Start: 03-25-2023 ANNUAL PCP TEAM FRENCH POLISHER DALJIT DISEASE VISIT ANNUAL PCP TEAM CHRONIC DISEASE VISIT [facility] Start: 12-16-2022 Mammography MAMMOGRAM [facility] Start: 11-05-2022 Hemoglobin A1c/Hemoglobin.total in Blood HBA1C [facility] Start: 10-21-2022 3 comp foot exam completed DIABETIC FOOT EXAM [facility] Start: 10-21-2022 ANNUAL PCP TEAM FRENCH POLISHER DALJIT DISEASE VISIT ANNUAL PCP TEAM CHRONIC DISEASE VISIT [facility] Start: 10-10-2022 End: 04-10-2023 ALBUMIN/CREAT RATIO RND UR ALBUMIN/CREAT RATIO RND UR Lab Routine Type 2 diabetes mellitus with diabetic neuropathy, without long-term current use of insulin (HCC) Expected: 10/10/2022, Expires: 04/10/2023 [facility] Work Phone: Comment on above: Expected: 10/10/2022 , Expires: 04/10/2023 Start: 10-10-2022 End: 12-10-2022 CBC W Auto Differential panel - Blood CBC + DIFF Lab Routine Acquired hypothyroidism Expected: 10/10/2022, Expires: 12/10/2022 [facility] Work Phone: Comment on above: Expected: 10/10/2022 , Expires: 12/10/2022 Start: 10-10-2022 End: 12-10-2022 Comprehensive metabolic 2000 panel - Serum or Plasma COMP METABOLIC PANEL Lab Routine Hyperlipidemia, unspecified hyperlipidemia type Expected: 10/10/2022, Expires: 12/10/2022 [facility] Work Phone: Comment on above: Expected: 10/10/2022 , Expires: 12/10/2022 Start: 10-10-2022 End: 12-10-2022 Hemoglobin A1c in Blood HGB A1C Lab Routine Type 2 diabetes mellitus with diabetic neuropathy, without long-term current use of insulin (HCC) Expected: 10/10/2022, Expires: 12/10/2022 [facility] Work Phone: Comment on above: Expected: 10/10/2022 , Expires: 12/10/2022 Start: 10-10-2022 End: 12-10-2022 Lipid 1996 panel - Serum or Plasma LIPID PANEL BASIC Lab Routine Hyperlipidemia, unspecified hyperlipidemia type Expected: 10/10/2022, Expires: 12/10/2022 [facility] Work Phone: Comment on above: Expected: 10/10/2022 , Expires: 12/10/2022 Start: 10-10-2022 End: 12-10-2022 Thyrotropin [Units/volume] in Serum or Plasma TSH BLD Lab Routine Acquired hypothyroidism Expected: 10/10/2022, Expires: 12/10/2022 [facility] Work Phone: Comment on above: Expected: 10/10/2022 , Expires: 12/10/2022 Start: 10-05-2022 Hepatitis B surface antibody level LDL CHOLESTEROL [facility] Start: 06-26-2022 Influenza vaccination INFLUENZA (#1) [facility] Start: 05-07-2022 Hepatitis C antibody , confirmatory test DILATED RETINAL EXAM [facility] Start: 05-05-2022 End: 07-05-2022 ALBUMIN/CREAT RATIO RND UR [facility] Work Phone: Comment on above: Expected: 05/05/2022 , Expires: 07/05/2022 Start: 05-05-2022 End: 07-05-2022 Hemoglobin A1c in Blood [facility] Work Phone: Comment on above: Expected: 05/05/2022 , Expires: 07/05/2022 Start: 04-05-2022 Hemoglobin A1c/Hemoglobin.total in Blood HBA1C [facility] Start: 03-15-2022 Hepatitis B screening URINE AL BUMIN:CREATININE RATIO [facility] Start: 02-27-2022 COVID-19 VACCINE (4 - Booster for Pfizer series) COVID-19 VACCINE (4 - Booster for Pfizer series) [facility] Start: 12-25-2021 COVID-19 VACCINE (4 - Booster for Pfizer series) COVID-19 VACCINE (4 - Booster for Pfizer series) [facility] Start: 09-19-2021 PNEUMOCOCCAL (2 - PCV) PNEUMOCOCCAL (2 - PCV) [facility] Start: 09-19-2021 Pneumococcal vaccination Pneumococcal Vaccine (2 of 2 - PCV) [facility] Start: 09-19-2021 Pneumococcal Vaccine : 50+ (2 of 2 - PCV) Pneumococcal Vaccine: 50+ (2 of 2 - PCV) [facility] Start: 2017 SHINGRIX VACCINE (1 of 2) SHINGRIX VACCINE (1 of 2) [facility] Start: 01-28-2017 End: 01-28-2017 Physical Therapy General Physical Therapy [facility], [address] [place] [address], [address] [facility] ([place], [place]) [facility] Work Phone: Start: 01-26-2017 End: 01-26-2017 X-ray exam of shoulder X-Ray, Shoulder [facility] Work Phone: Start: 01-31-2012 COLOGUARD (FIT-DNA) COLOGUARD (FIT-D NA) [facility] Start: 01-31-[address] COLONOGRAPHY [facility] Start: 01-31-2012 FECAL OCCULT BLOOD FECAL OCCULT BLOO D [facility] Start: 01-31-2012 Screening for malign ant neoplasm of colon [facility] Start: 01-31-2012 SIGMOIDOSCOPY SIGMOIDOSCOPY [facility] Start: 1986 HEPATITIS B (1 of 3 - Risk 3-dose series) HEPATITIS B (1 of 3 - Risk 3-dose series) [facility] Start: 1986 Hepatitis B Vaccine (1 of 3 - 19+ 3-dose series) Hepatitis B Vaccine (1 of 3 - 19+ 3-dose series) [facility] Start: 1985 Anxiety Screening Anxiety Screening [facility] Start: 1985 BP CONTROLLED (<130/80) BP CONTROLLE D (<130/80) [facility] Start: 1967 HEPATITIS B (1 of 3 - 3-dose series) HEPATITIS B (1 of 3 - 3-dose series) [facility] Bacteria identified in Urine by Culture BACTERIAL CULTURE, URINE Microbiology Routine Acute UTI Ordered: 12/26/2024 [facility] Work Phone: Comment on above: Ordered: 12/26/2024 COVID & INFLUENZA A/ B & RSV PCR, ROUTINE COVID & INFLUENZA A/B & RSV PCR, ROUTINE Microbiology Routine Viral URI 11/21/2024 4:22 PM EST [facility] Work Phone: End: 12-10-2023 GAMALIEL SCREENING GAMALIEL SCREENING Radiology Routine Encounter for screening mammogram for malignant neoplasm of breast 1 Occurrences starting 11/10/2022 until 12/10/2023 [facility] Work Phone: Comment on above: 1 Occurrences starti ng 11/10/2022 until 12/10/2023 End: 01-05-2025 MG Breast Screening GAMALIEL SCREENING Radiology Routine Encounter for screening mammogram for malignant neoplasm of breast 1 Occurrences starting 12/07/2023 until 01/05/2025 [facility] Work Phone: Comment on above: 1 Occurrences starti ng 12/07/2023 until 01/05/2025 MG Breast Screening GAMALIEL SCREENIN G Radiology Routine Encounter for screening mammogram for malignant neoplasm of breast 01/11/2024 9:57 AM EDT [facility] Work Phone: MG Breast Screening GAMALIEL SCREENIN G Radiology Routine Visit for screening mammogram Ordered: 12/26/2024 [facility] Work Phone: Comment on above: Ordered: 12/26/2024 Patient Education ED Contusion, Lower Extremity ED Contusion, Upper Extremity ED Fall Prevention [facility] Work Phone: Patient referral [facility] Work Phone: PT PLAN OF CARE CERTIFICATION PT PLAN OF CARE CERTIFICATION Procedures Routine Neck pain Chronic bilateral low back pain without sciatica Ordered: 04/01/2022 [facility] Work Phone: Comment on above: Ordered: 04/01/2022 PT PLAN OF CARE CERTIFICATION PT PLAN OF CARE CERTIFICATION Procedures Routine Neck pain Chronic bilateral low back pain without sciatica Cervical radiculopathy Ordered: 05/05/2022 [facility] Work Phone: Comment on above: Ordered: 05/05/2022 End: 02-16-2026 US Kidney - bilateral and Urinary bladder US KIDNEY/BLADDER Radiology Routine Stage 3a chronic kidney disease (HCC) 1 Occurrences starting 01/17/2025 until 02/16/2026 [facility] Comment on above: 1 Occurrences starti ng 01/17/2025 until 02/16/2026 US Kidney - bilatera l and Urinary bladder US KIDNEY/BLADDER Radiology Routine Stage 3a chronic kidney disease (HCC) 01/23/2025 1:25 PM EDT [facility] Work Phone: [facility] Immunizations Immunization Date Immunization Notes Care Provider Fa [facility] 01-16-2025 COVID-19 vaccine, ag e 12+ yr (PFIZER-BIONTECH [facility]) Ranjeet Goodwin MD Work Phone: [facility] 01-16-2025 pneumococcal conjuga te (PCV20) vaccine, 20 valent (PREVNAR 20) Ranjeet Goodwin MD Work Phone: [facility] 01-16-2025 pneumococcal Conjuga te, unspecified formulation Ranjeet Goodwin MD Work Phone: [facility] 09-14-2023 COVID-19 vaccine, ag e 12+ yr, 2022- season ([facility]-BIONTECH) Ranjeet Goodwin MD Work Phone: [facility] 09-14-2023 influenza, injectabl e, quadrivalent, contains preservative Ranjeet Goodwin MD Work Phone: [facility] 09-14-2023 influenza virus vacc ine, unspecified formulation BRENNEN Mace PA-C Work Phone: [facility] 10-10-2022 influenza, injectabl e, quadrivalent, contains preservative Odalys Brock APRN.CNP Work Phone: [facility] 10-10-2022 influenza virus vacc ine, unspecified formulation Ranjeet Goodwin MD Work Phone: [facility] 10-21-2021 influenza, injectabl e, quadrivalent, contains preservative Ranjeet Shields Jr., MD Work Phone: [facility] 04-25-2021 tetanus toxoid, redu delma diphtheria toxoid, and acellular pertussis vaccine, adsorbed Ranjeet Shields Jr., MD Work Phone: [facility] 02-26-2021 COVID-19 vaccine, ag e 12+ yr (PFIZER-BIONTECH - PURPLE TOP) Ranjeet Shields Jr., MD Work Phone: [facility] 02-03-2021 COVID-19 vaccine, ag e 12+ yr (PFIZER-BIONTECH - PURPLE TOP) Ranjeet Shields Jr., MD Work Phone: [facility] 09-19-2020 influenza, injectabl e, quadrivalent, contains preservative Ranjeet Shields Jr., MD Work Phone: [facility] 09-19-2020 pneumococcal polysaccharide vaccine, 23 valent Ranjeet Shields Jr., MD Work Phone: [facility] 08-11-2019 influenza, injectabl e, quadrivalent, contains preservative Ranjeet Shields Jr., MD Work Phone: [facility] 11-27-2018 tetanus toxoid, redu delma diphtheria toxoid, and acellular pertussis vaccine, adsorbed Ranjeet Shields Jr., MD Work Phone: [facility] Work Phone: 08-09-2018 influenza, seasonal, injectable [facility] 08-09-2018 influenza, seasonal, injectable, preservative free Ranjeet Shields Jr., MD Work Phone: [facility] Work Phone: 10-08-2015 influenza, seasonal, injectable [facility] 10-08-2015 influenza, seasonal, injectable, preservative free Ranjeet Shields Jr., MD Work Phone: [facility] Work Phone: 08-02-2010 influenza virus vacc ine, whole virus Ranjeet Shields Jr., MD Work Phone: [facility] Work Phone: 09-05-2009 novel influenza-H1N1 -09, preservative-free, injectable Ranjeet Shields Jr., MD Work Phone: [facility] Work Phone: 07-06-2009 influenza virus vacc ine, whole virus Ranjeet Shields Jr., MD Work Phone: [facility] Work Phone: 08-25-2008 influenza virus vacc ine, whole virus Ranjeet Shields Jr., MD Work Phone: [facility] Work Phone: Payers Date Payer Category Payer Self-pay [id number] 2024 Government (not [facility] care or Medicaid) [facility] Address: [place] [id number] 2024 Unknown [facility]RA MCO [id number] 2024-Present [phone] [address] [place] [address] MCO [id number] 2022 Medicare (Managed Care) [id number]. [id number] 2022 Unknown [id number] 2019 Medicaid MEDICAID [facility] MEDICAID [id number] 2019-Present [phone] [address] [place] [address] Medicaid [id number] 2019 Medicaid [id number] 2019 Medicaid [id number] 2018 Medicare UHC MEDICARE UHC DUAL COMPLETE HMO SNP [id number] 2018-Present [phone] [address] [place] [address] Medicare [id number] 2018 Medicare [id number] 2010 Medicare MEDICARE PART A B [id number] Medicare [id number] Unknown [id number] Unknown [id number] Unknown [id number] Unknown [id number] Unknown [id number] Unknown [id number] Unknown [id number] Unknown [id number] Social History Date Type Detail Facility Start: 07-15-2018 End: 07-08-2022 Tobacco smoking status NHIS Never smoked tobacco [facility] Work Phone: Start: 07-15-2018 End: 07-08-2022 Tobacco use and exposure Smokeless tobacco non-user [facility] Work Phone: Start: 01-20-2022 End: 04-20-2025 Alcohol intake Current non-drinker of alcohol (finding) [facility] Start: 1965 Sex Assigned At Not on file [facility] Start: 01-10-2022 End: 08-01-2022 Exposure to SARS-CoV-2 (event) Not sure [facility] Start: 1965 Sex Assigned At Female [facility] Start: 01-07-2023 Tobacco smoking stat us NMIS Unknown if ever smoked [facility] Start: 10-31-2020 None [facility] Start: 10-31-2020 Alone [facility] Start: 02-18-2019 Non-smoker [facility] Start: 05-11-2023 End: 11-28-2024 History of Social function [facility] Start: 05-11-2023 End: 11-28-2024 Tobacco use panel [facility] Start: 09-26-2012 Adult Depression Screening Assessment 1 [facility] Medical Equipment Procedure Code Equipment Code Equipment Original Text Equipment Identifier Dates [id number], [id number], [id number], [id number], [id number], [id number], [id number], [id number] Start: 07-31-2020 End: 01-16-2025 Comment on above: Test blood sugar(s) 2 times daily. Dx: Type 2 DM - Uncontrolled E11.65 Insulin: Yes Use to inject insuli n once daily as directed One Touch Test blood sugar(s) 2 times daily. Dx: Type 2 DM - Controlled E11.9 Insulin: Yes Test blood sugar(s) 2 times daily. Dx: Type 2 DM - Controlled E11.9 Insulin: Yes Clinical Notes 06-18-2020 to 08-14-2025 Telephone Encounter - Viviana Hummel RN - 07/11/2025 10:03 AM EDTTelephone Encounter - Viviana Hummel RN - 07/11/2025 10:03 AM Dolly Day RT(Maddy) - 04/20/2025 4:00 PM EDT Note Date & Type Note Facility 08-14-2025 Note HNO ID: [id number] Author: RANJEET GOODWIN MD Service: ? Author Type: Physician Type: Progress Notes Filed: 08/14/2025 12:21 Note Text: The patient is a 60-year-old female with HTN, DM, hypothyroidism, HIMANSHU, and GERD, presenting for follow-up. TAN Lam is a 60-year-old female with a history of DM, HTN, HIMANSHU, hypothyroidism, GERD, and depression, presenting for a follow-up visit. Diabetes Mellitus: - Home blood glucose readings are well-controlled. - Requires insulin refills. - Denies polyuria, polydipsia, or polyphagia. Hypertension: - Home blood pressure readings are well-controlled. - Denies chest pain, dyspnea, or edema. Obstructive Sleep Apnea: - Continues to use CPAP with perceived benefit. Hypothyroidism: - Adherent to thyroid medication. - Reports good energy levels. GERD: - Occasional heartburn, dependent on dietary intake. - Currently taking omeprazole BID. - No history of upper endoscopy. Depression: - Mood fluctuations noted. - Denies significant depression or anxiety. - Finds solitude helpful when feeling down. - Current medications perceived as effective. Weight Loss: - Lost an additional 3 lbs since last visit. - Monitoring diet; denies significant dietary restrictions. MEDICATIONS: Current Outpatient Medications Medication Sig aspirin, enteric coated (ASPIRIN, ENTERIC COATED) 81 mg EC tablet Take 1 tablet by mouth once daily. (self-started) cyanocobalamin (VITAMIN B-12) 1,000 mcg tab Take 1 tablet by mouth once daily. multivitamin-ferrous fumarate-folic acid (CENTRUM) Take 1 tablet by mouth once daily. DULoxetine DR (CYMBALTA) 60 mg capsule Take 1 capsule by mouth once daily. lisinopril (ZESTRIL) 40 mg tablet Take 1 tablet by mouth once daily. atenolol (TENORMIN) 100 mg tablet Take 1 tablet by mouth once daily. atorvastatin (LIPITOR) 20 mg tablet Take 1 tablet by mouth daily at bedtime. For cholesterol. empagliflozin (JARDIANCE) 25 mg tablet Take 1 tablet by mouth once daily. estradiol (ESTRACE) 1 mg tablet Take 1 tablet by mouth once daily. metFORMIN ER (GLUCOPHAGE XR) 500 mg 24 hr tablet Take 2 tablet by mouth twice daily with food. pioglitazone (ACTOS) 30 mg tablet Take 1 tablet by mouth once daily. SITagliptin phosphate (JANUVIA) 100 mg tablet Take 1 tablet by mouth once daily. cyclobenzaprine (FLEXERIL) 5 mg tablet Take 1 tablet by mouth at bedtime as needed. chlorthalidone (HYGROTON) 25 mg tablet Take 1 tablet by mouth once daily. CPAP/BIPAP/OTHER autoCPAP 5-12 cmH2O DME [employer] sertraline (ZOLOFT) 50 mg tablet Take 1 tablet by mouth once daily. hydrOXYzine HCl (ATARAX) 25 mg tablet Take 1 tablet by mouth every 6 hours as needed for anxiety. Cholecalciferol, Vitamin D3, (VITAMIN D-3) 50 mcg (2,000 unit) cap Take 1 capsule by mouth once daily. levothyroxine (SYNTHROID) 50 mcg tablet Take 1 tablet by mouth once daily. Take on empty stomach. For Thyroid. insulin glargine 100 unit/mL (3 mL) Inject 32 Units subcutaneously every morning. omeprazole (PRILOSEC) 20 mg capsule Take 1 capsule by mouth once daily. Insulin [place], Disposable, (BD ULTRA-FINE ROSALIE PEN NEEDLE) 32 gauge x Use to inject insulin once daily as directed Lancets One Touch Test blood sugar(s) 2 times daily. Dx: Type 2 DM - Controlled E11.9 Insulin: Yes blood sugar diagnostic (BLOOD GLUCOSE TEST) test strip Test blood sugar(s) 2 times daily. Dx: Type 2 DM - Controlled E11.9 Insulin: Yes nystatin (MYCOSTATIN) cream Apply 1 application to affected area two times a day. On left foot triamcinolone acetonide (KENALOG) 0.1 % ointment Apply to affected area twice daily. X 2 weeks; then take a break X 1 week. If still present, then restart X 2 more weeks. blood sugar diagnostic (BLOOD GLUCOSE TEST) test strip Test blood sugar(s) 2 times daily. Dx: Type 2 DM - Uncontrolled E11.65 Insulin: Yes COMPOUNDED PRESCRIPTION Diabetic shoes No current facility-administered medications for this visit. ALLERGIES: ALLERGIES Allergen Reactions Amoxicillin Other: See Comments Bleach (Sodium Hypo* Hives Penicillins Other: See Comments Sulfa (Sulfonamide * Rash AND dry heaves. PAST MEDICAL HISTORY Diagnosis Date Arthralgia Chronic back pain Depression Developmental delay Diabetic neuropathy (HCC) feet DM (diabetes mellitus) (HCC) Hypertension Hypothyroid Mental disorder Snoring PAST SURGICAL HISTORY Procedure Laterality Date COLONOSCOPY FLX DX W/COLLJ SPEC WHEN PFRMD 09/23/2018 Colonoscopy HYSTERECTOMY N/A XCAPSL CTRC RMVL INSJ IO LENS PROSTH CPLX WO ECP FAMILY HISTORY Problem Relation Age of Onset Arthritis Mother Diabetes Mother Hypertension Mother Hyperlipidemia Mother SOCIAL HISTORY[1] Reviewed current medications, allergies, past medical history, surgical history, family history and social history today. REVIEW OF SYSTEMS Constitutional: (+) unintentional weight loss, (-) fatigue, (-) insomnia Car (more content not included)... [facility] 07-11-2025 Miscellaneous Notes Formattin g of this note is different from the original. The patient has been identified by name and date of : Yes Caregiver verified no other encounters exist for this prescription request: Yes Caregiver confirmed with patient/requestor that no other refills are due, in the near future, with this provider at this time: Yes The last office visit in the department: 01/16/2025 Does the patient have a future office visit with this provider/department: Yes 08/14/2025 Requested Prescriptions Pending Prescriptions Disp Refills aspirin, enteric coated (ASPIRIN, ENTERIC COATED) 81 mg EC tablet 90 tablet 3 Sig: Take 1 tablet by mouth once daily. (self-started) cyanocobalamin (VITAMIN B-12) 1,000 mcg tab 90 tablet 3 Sig: Take 1 tablet by mouth once daily. multivitamin-ferrous fumarate-folic acid (CENTRUM) 90 tablet 3 Sig: Take 1 tablet by mouth once daily. Viviana Hummel RN July 11, 2025 10:03 AM documented in this encounter [facility] 07-11-2025 Telephone encount er Note The patient has been identified by name and date of : Yes Caregiver verified no other encounters exist for this prescription request: Yes Caregiver confirmed with patient/requestor that no other refills are due, in the near future, with this provider at this time: Yes The last office visit in the department: 01/16/2025 Does the patient have a future office visit with this provider/department: Yes 08/14/2025 Requested Prescriptions Pending Prescriptions Disp Refills aspirin, enteric coated (ASPIRIN, ENTERIC COATED) 81 mg EC tablet 90 tablet 3 Sig: Take 1 tablet by mouth once daily. (self-started) cyanocobalamin (VITAMIN B-12) 1,000 mcg tab 90 tablet 3 Sig: Take 1 tablet by mouth once daily. multivitamin-ferrous fumarate-folic acid (CENTRUM) 90 tablet 3 Sig: Take 1 tablet by mouth once daily. Viviana Hummel RN July 11, 2025 10:03 AM [facility] 06-09-2025 Telephone encount er Note The following approved medication requests have been transmitted electronically. Requested Prescriptions Pending Prescriptions Disp Refills DULoxetine DR (CYMBALTA) 60 mg capsule 90 capsule 1 Sig: Take 1 capsule by mouth once daily. lisinopril (ZESTRIL) 40 mg tablet 90 tablet 3 Sig: Take 1 tablet by mouth once daily. Adelaide Donovan APRN.CNP [facility] 06-09-2025 Miscellaneous Notes Formattin g of this note is different from the original. The following approved medication requests have been transmitted electronically. Requested Prescriptions Pending Prescriptions Disp Refills DULoxetine DR (CYMBALTA) 60 mg capsule 90 capsule 1 Sig: Take 1 capsule by mouth once daily. lisinopril (ZESTRIL) 40 mg tablet 90 tablet 3 Sig: Take 1 tablet by mouth once daily. Adelaide Donovan APRN.CNP The patient has been identified by name and date of : Yes Caregiver verified no other encounters exist for this prescription request: Yes Caregiver confirmed with patient/requestor that no other refills are due, in the near future, with this provider at this time: Yes The last office visit in the department: 01/16/2025 Does the patient have a future office visit with this provider/department: Yes 08/14/2025 Requested Prescriptions Pending Prescriptions Disp Refills DULoxetine DR (CYMBALTA) 60 mg capsule 90 capsule 1 Sig: Take 1 capsule by mouth once daily. lisinopril (ZESTRIL) 40 mg tablet 90 tablet 3 Sig: Take 1 tablet by mouth once daily. Viviana Hummel RN June 09, 2025 4:44 PM documented in this encounter [facility] 06-09-2025 Telephone encount er Note The patient has been identified by name and date of : Yes Caregiver verified no other encounters exist for this prescription request: Yes Caregiver confirmed with patient/requestor that no other refills are due, in the near future, with this provider at this time: Yes The last office visit in the department: 01/16/2025 Does the patient have a future office visit with this provider/department: Yes 08/14/2025 Requested Prescriptions Pending Prescriptions Disp Refills DULoxetine DR (CYMBALTA) 60 mg capsule 90 capsule 1 Sig: Take 1 capsule by mouth once daily. lisinopril (ZESTRIL) 40 mg tablet 90 tablet 3 Sig: Take 1 tablet by mouth once daily. Viviana Hummel RN June 09, 2025 4:44 PM [facility] 05-16-2025 Telephone encount er Note The following approved medication requests have been transmitted electronically. Requested Prescriptions Pending Prescriptions Disp Refills atenolol (TENORMIN) 100 mg tablet 90 tablet 1 Sig: Take 1 tablet by mouth once daily. atorvastatin (LIPITOR) 20 mg tablet 90 tablet 1 Sig: Take 1 tablet by mouth daily at bedtime. For cholesterol. empagliflozin (JARDIANCE) 25 mg tablet 90 tablet 1 Sig: Take 1 tablet by mouth once daily. estradiol (ESTRACE) 1 mg tablet 90 tablet 1 Sig: Take 1 tablet by mouth once daily. metFORMIN ER (GLUCOPHAGE XR) 500 mg 24 hr tablet 360 tablet 1 Sig: Take 2 tablet by mouth twice daily with food. pioglitazone (ACTOS) 30 mg tablet 90 tablet 3 Sig: Take 1 tablet by mouth once daily. SITagliptin phosphate (JANUVIA) 100 mg tablet 90 tablet 1 Sig: Take 1 tablet by mouth once daily. Adelaide Donovan APRN.ZIGGY T [facility] 05-16-2025 Miscellaneous Notes Formattin g of this note is different from the original. The following approved medication requests have been transmitted electronically. Requested Prescriptions Pending Prescriptions Disp Refills atenolol (TENORMIN) 100 mg tablet 90 tablet 1 Sig: Take 1 tablet by mouth once daily. atorvastatin (LIPITOR) 20 mg tablet 90 tablet 1 Sig: Take 1 tablet by mouth daily at bedtime. For cholesterol. empagliflozin (JARDIANCE) 25 mg tablet 90 tablet 1 Sig: Take 1 tablet by mouth once daily. estradiol (ESTRACE) 1 mg tablet 90 tablet 1 Sig: Take 1 tablet by mouth once daily. metFORMIN ER (GLUCOPHAGE XR) 500 mg 24 hr tablet 360 tablet 1 Sig: Take 2 tablet by mouth twice daily with food. pioglitazone (ACTOS) 30 mg tablet 90 tablet 3 Sig: Take 1 tablet by mouth once daily. SITagliptin phosphate (JANUVIA) 100 mg tablet 90 tablet 1 Sig: Take 1 tablet by mouth once daily. Adelaide Donovan APRN.ZIGGY Erica from [employer] calls and states that she forgot to add Januvia to request. Januvia added. Viviana Hummel RN Prescription Refill Information The patient has been identified by name and date of : Yes Caregiver verified no other encounters exist for this prescription request: Yes Caregiver confirmed with patient/requestor that no other refills are due, in the near future, with this provider at this time: Yes The last office visit in the department: 01/16/25 Does the patient have a future office visit with this provider/department: Yes 08/14/25 Requested Prescriptions Pending Prescriptions Disp Refills atenolol (TENORMIN) 100 mg tablet 90 tablet 1 Sig: Take 1 tablet by mouth once daily. atorvastatin (LIPITOR) 20 mg tablet 90 tablet 1 Sig: Take 1 tablet by mouth daily at bedtime. For cholesterol. empagliflozin (JARDIANCE) 25 mg tablet 90 tablet 1 Sig: Take 1 tablet by mouth once daily. estradiol (ESTRACE) 1 mg tablet 90 tablet 1 Sig: Take 1 tablet by mouth once daily. metFORMIN ER (GLUCOPHAGE XR) 500 mg 24 hr tablet 360 tablet 1 Sig: Take 2 tablet by mouth twice daily with food. pioglitazone (ACTOS) 30 mg tablet 90 tablet 3 Sig: Take 1 tablet by mouth once daily. Melissa Ohara LPN May 16, 2025 2:58 PM documented in this encounter [facility] 05-16-2025 Telephone encount er Note Erica from [employer] calls and states that she forgot to add Januvia to request. Januvia added. Viviana Hummel RN [facility] 05-16-2025 Telephone encount er Note Prescription Refill Information The patient has been identified by name and date of : Yes Caregiver verified no other encounters exist for this prescription request: Yes Caregiver confirmed with patient/requestor that no other refills are due, in the near future, with this provider at this time: Yes The last office visit in the department: 01/16/25 Does the patient have a future office visit with this provider/department: Yes 08/14/25 Requested Prescriptions Pending Prescriptions Disp Refills atenolol (TENORMIN) 100 mg tablet 90 tablet 1 Sig: Take 1 tablet by mouth once daily. atorvastatin (LIPITOR) 20 mg tablet 90 tablet 1 Sig: Take 1 tablet by mouth daily at bedtime. For cholesterol. empagliflozin (JARDIANCE) 25 mg tablet 90 tablet 1 Sig: Take 1 tablet by mouth once daily. estradiol (ESTRACE) 1 mg tablet 90 tablet 1 Sig: Take 1 tablet by mouth once daily. metFORMIN ER (GLUCOPHAGE XR) 500 mg 24 hr tablet 360 tablet 1 Sig: Take 2 tablet by mouth twice daily with food. pioglitazone (ACTOS) 30 mg tablet 90 tablet 3 Sig: Take 1 tablet by mouth once daily. Melissa Ohara LPN May 16, 2025 2:58 PM [facility] 04-20-2025 History of Presen t illness Narrative Radiology Service Progress Note PATIENT NAME: Arcenio Rand DATE OF SERVICE: April 20, 2025 TIME: 4:02 PM PATIENT IDENTITY VERIFICATION COMPLETED USING TWO (2) IDENTIFIERS: Name and Date of confirmed by patient verbally. FALL SCREENING: Has the patient had 2 falls in the last year or 1 fall with injury or currently using an Ambulatory Assistive Device (Walker, Cane, Wheelchair, Crutches, etc.)? No PATIENT GENDER DATA: Assigned female at . status: : No status: NO. PATIENT RELEVANT IMPLANT DATA REVIEWED: Yes PATIENT PRESENTS WITH AN IMPLANTABLE OR ATTACHED STOCK CAR DRIVER: No RADIOLOGY DEPARTMENT: General X-ray: Exam(s) Completed: Spine X-Ray(s): Lumbar AP / LAT / L5-S1 PERIPHERAL IV DATA: Not applicable SIGNED BY: RT Kong(R) April 20, 2025 4:02 PM documented in this encounter [facility] 04-20-2025 Note HNO ID: [id number] Author: DOLLY BOYLE RT(R) Service: ? Author Type: Technologist Type: Progress Notes Filed: 04/20/2025 16:18 Note Text: Radiology Service Progress Note PATIENT NAME: Arcenio Rand DATE OF SERVICE: April 20, 2025 TIME: 4:02 PM PATIENT IDENTITY VERIFICATION COMPLETED USING TWO (2) IDENTIFIERS: Name and Date of confirmed by patient verbally. FALL SCREENING: Has the patient had 2 falls in the last year or 1 fall with injury or currently using an Ambulatory Assistive Device (Walker, Cane, Wheelchair, Crutches, etc.)? No PATIENT GENDER DATA: Assigned female at . status: : No status: NO. PATIENT RELEVANT IMPLANT DATA REVIEWED: Yes PATIENT PRESENTS WITH AN IMPLANTABLE OR ATTACHED STOCK CAR DRIVER: No RADIOLOGY DEPARTMENT: General X-ray: Exam(s) Completed: Spine X-Ray(s): Lumbar AP / LAT / L5-S1 PERIPHERAL IV DATA: Not applicable SIGNED BY: RT Kong(R) April 20, 2025 4:02 PM [facility] 04-20-2025 Note HNO ID: [id number] Author: ILDA EPSTEIN PA Service: ? Author Type: Physician Community Mental Health Social Worker Type: Progress Notes Filed: 04/20/2025 16:48 Note Text: [facility] Subjective Arcenio Rand is a 60 year old female. Patient presents with: Back Pain: Lower middle back pain, states she woke up yesterday and had the pain, and is aching and increases with certain movements x 2 days HPI Lower Back Pain: - Acute onset lower back pain, began yesterday morning while getting out of bed. - Pain localized to the center of the lower back. - Aggravated by movement and bending over (e.g., putting on shoes). - Took Tylenol with no relief. - Denies known trauma or injury. - Denies numbness or tingling in the legs, or pain radiating down the legs. - No loss of bowel or bladder function; denies hematuria or dysuria. - History of arthritis and degenerative disc disease; no previous surgery on the lower back. - History of chronic pain and arthritis, previously tolerated Flexeril at bedtime. - Currently in physical therapy for shoulder surgery. PAST MEDICAL HISTORY Diagnosis Date Arthralgia Chronic back pain Depression Developmental delay Diabetic neuropathy (HCC) feet DM (diabetes mellitus) (HCC) Hypertension Hypothyroid Mental disorder Snoring PAST SURGICAL HISTORY Procedure Laterality Date COLONOSCOPY FLX DX W/COLLJ SPEC WHEN PFRMD 09/23/2018 Colonoscopy HYSTERECTOMY N/A XCAPSL CTRC RMVL INSJ IO LENS PROSTH CPLX WO ECP ALLERGIES Amoxicillin, Bleach (Sodium Hypochlorite), Penicillins, and Sulfa (Sulfonamide Antibiotics) MEDICATIONS omeprazole (PRILOSEC) 20 mg capsule Take 2 capsules by mouth once daily. levothyroxine (SYNTHROID) 50 mcg tablet Take 1 tablet by mouth once daily. Take on empty stomach. For Thyroid. insulin glargine 100 unit/mL (3 mL) Inject 32 Units subcutaneously every morning. chlorthalidone (HYGROTON) 25 mg tablet Take 1 tablet by mouth once daily. Insulin [place], Disposable, (BD ULTRA-FINE ROSALIE PEN NEEDLE) 32 gauge x 5/32 Use to inject insulin once daily as directed Lancets One Touch Test blood sugar(s) 2 times daily. Dx: Type 2 DM - Controlled E11.9 Insulin: Yes DULoxetine (CYMBALTA) 60 mg capsule Take 1 capsule by mouth once daily. atorvastatin (LIPITOR) 20 mg tablet Take 1 tablet by mouth daily at bedtime. For cholesterol. atenolol (TENORMIN) 100 mg tablet Take 1 tablet by mouth once daily. empagliflozin (JARDIANCE) 25 mg tablet Take 1 tablet by mouth once daily. estradiol (ESTRACE) 1 mg tablet Take 1 tablet by mouth once daily. metFORMIN ER (GLUCOPHAGE XR) 500 mg 24 hr tablet Take 2 tablet by mouth twice daily with food. SITagliptin phosphate (JANUVIA) 100 mg tablet Take 1 tablet by mouth once daily. CPAP/BIPAP/OTHER autoCPAP 5-12 cmH2O DME [employer] aspirin, enteric coated (ASPIRIN, ENTERIC COATED) 81 mg EC tablet Take 1 tablet by mouth once daily. (self-started) cyanocobalamin (VITAMIN B-12) 1,000 mcg tab Take 1 tablet by mouth once daily. multivitamin-ferrous fumarate-folic acid (CENTRUM) Take 1 tablet by mouth once daily. pioglitazone (ACTOS) 30 mg tablet Take 1 tablet by mouth once daily. lisinopril (ZESTRIL) 40 mg tablet Take 1 tablet by mouth once daily. blood sugar diagnostic (BLOOD GLUCOSE TEST) test strip Test blood sugar(s) 2 times daily. Dx: Type 2 DM - Controlled E11.9 Insulin: Yes nystatin (MYCOSTATIN) cream Apply 1 application to affected area two times a day. On left foot triamcinolone acetonide (KENALOG) 0.1 % ointment Apply to affected area twice daily. X 2 weeks; then take a break X 1 week. If still present, then restart X 2 more weeks. blood sugar diagnostic (BLOOD GLUCOSE TEST) test strip Test blood sugar(s) 2 times daily. Dx: Type 2 DM - Uncontrolled E11.65 Insulin: Yes hydrOXYzine HCl (ATARAX) 25 mg tablet Take 1 tablet by mouth every 6 hours as needed for anxiety. Cholecalciferol, Vitamin D3, (VITAMIN D-3) 50 mcg (2,000 unit) cap Take 1 capsule by mouth once daily. COMPOUNDED PRESCRIPTION Diabetic shoes cyclobenzaprine (FLEXERIL) 5 mg tablet Take 1 tablet by mouth at bedtime as needed. sertraline (ZOLOFT) 50 mg tablet Take 1 tablet by mouth once daily. FAMILY HISTORY Problem Relation Age of Onset Arthritis Mother Diabetes Mother Hypertension Mother Hyperlipidemia Mother Social History Tobacco Use Smoking status: Never Smokeless tobacco: Never Vaping Use Vaping status: Never Used Substance Use Topics Alcohol use: No Drug use: No Review of Systems Gastrointestinal: (-) bowel incontinence Genitourinary: (+) urinary frequency, (+) urinary incontinence, (-) dysuria, (-) hematuria Musculoskeletal: (+) low back pain, (+) knee pain, (+) knee crepitus Neurological: (-) leg paresthesia, (-) radicular leg pain Objective BP 127/85 Pulse 73 Temp 36.3 ?C (97.3 ?F) Resp 18 Wt 79 kg (174 lb 2.6 oz) SpO2 99% BMI 34.01 kg/m? Physical Exam Vitals (more content not included)... [facility] 04-20-2025 History of Presen t illness Narrative [facility] Subjective Arcenio Rand is a 60 year old female. Patient presents with: Back Pain: Lower middle back pain, states she woke up yesterday and had the pain, and is aching and increases with certain movements x 2 days HPI Lower Back Pain: - Acute onset lower back pain, began yesterday morning while getting out of bed. - Pain localized to the center of the lower back. - Aggravated by movement and bending over (e.g., putting on shoes). - Took Tylenol with no relief. - Denies known trauma or injury. - Denies numbness or tingling in the legs, or pain radiating down the legs. - No loss of bowel or bladder function; denies hematuria or dysuria. - History of arthritis and degenerative disc disease; no previous surgery on the lower back. - History of chronic pain and arthritis, previously tolerated Flexeril at bedtime. - Currently in physical therapy for shoulder surgery. PAST MEDICAL HISTORY Diagnosis Date Arthralgia Chronic back pain Depression Developmental delay Diabetic neuropathy (HCC) feet DM (diabetes mellitus) (HCC) Hypertension Hypothyroid Mental disorder Snoring PAST SURGICAL HISTORY Procedure Laterality Date COLONOSCOPY FLX DX W/COLLJ SPEC WHEN PFRMD 09/23/2018 Colonoscopy HYSTERECTOMY N/A XCAPSL CTRC RMVL INSJ IO LENS PROSTH CPLX WO ECP ALLERGIES Amoxicillin, Bleach (Sodium Hypochlorite), Penicillins, and Sulfa (Sulfonamide Antibiotics) MEDICATIONS omeprazole (PRILOSEC) 20 mg capsule Take 2 capsules by mouth once daily. levothyroxine (SYNTHROID) 50 mcg tablet Take 1 tablet by mouth once daily. Take on empty stomach. For Thyroid. insulin glargine 100 unit/mL (3 mL) Inject 32 Units subcutaneously every morning. chlorthalidone (HYGROTON) 25 mg tablet Take 1 tablet by mouth once daily. Insulin [place], Disposable, (BD ULTRA-FINE ROSALIE PEN NEEDLE) 32 gauge x 5/32 Use to inject insulin once daily as directed Lancets One Touch Test blood sugar(s) 2 times daily. Dx: Type 2 DM - Controlled E11.9 Insulin: Yes DULoxetine (CYMBALTA) 60 mg capsule Take 1 capsule by mouth once daily. atorvastatin (LIPITOR) 20 mg tablet Take 1 tablet by mouth daily at bedtime. For cholesterol. atenolol (TENORMIN) 100 mg tablet Take 1 tablet by mouth once daily. empagliflozin (JARDIANCE) 25 mg tablet Take 1 tablet by mouth once daily. estradiol (ESTRACE) 1 mg tablet Take 1 tablet by mouth once daily. metFORMIN ER (GLUCOPHAGE XR) 500 mg 24 hr tablet Take 2 tablet by mouth twice daily with food. SITagliptin phosphate (JANUVIA) 100 mg tablet Take 1 tablet by mouth once daily. CPAP/BIPAP/OTHER autoCPAP 5-12 cmH2O DME [employer] aspirin, enteric coated (ASPIRIN, ENTERIC COATED) 81 mg EC tablet Take 1 tablet by mouth once daily. (self-started) cyanocobalamin (VITAMIN B-12) 1,000 mcg tab Take 1 tablet by mouth once daily. multivitamin-ferrous fumarate-folic acid (CENTRUM) Take 1 tablet by mouth once daily. pioglitazone (ACTOS) 30 mg tablet Take 1 tablet by mouth once daily. lisinopril (ZESTRIL) 40 mg tablet Take 1 tablet by mouth once daily. blood sugar diagnostic (BLOOD GLUCOSE TEST) test strip Test blood sugar(s) 2 times daily. Dx: Type 2 DM - Controlled E11.9 Insulin: Yes nystatin (MYCOSTATIN) cream Apply 1 application to affected area two times a day. On left foot triamcinolone acetonide (KENALOG) 0.1 % ointment Apply to affected area twice daily. X 2 weeks; then take a break X 1 week. If still present, then restart X 2 more weeks. blood sugar diagnostic (BLOOD GLUCOSE TEST) test strip Test blood sugar(s) 2 times daily. Dx: Type 2 DM - Uncontrolled E11.65 Insulin: Yes hydrOXYzine HCl (ATARAX) 25 mg tablet Take 1 tablet by mouth every 6 hours as needed for anxiety. Cholecalciferol, Vitamin D3, (VITAMIN D-3) 50 mcg (2,000 unit) cap Take 1 capsule by mouth once daily. COMPOUNDED PRESCRIPTION Diabetic shoes cyclobenzaprine (FLEXERIL) 5 mg tablet Take 1 tablet by mouth at bedtime as needed. sertraline (ZOLOFT) 50 mg tablet Take 1 tablet by mouth once daily. FAMILY HISTORY Problem Relation Age of Onset Arthritis Mother Diabetes Mother Hypertension Mother Hyperlipidemia Mother Social History Tobacco Use Smoking status: Never Smokeless tobacco: Never Vaping Use Vaping status: Never Used Substance Use Topics Alcohol use: No Drug use: No Review of Systems Gastrointestinal: (-) bowel incontinence Genitourinary: (+) urinary frequency, (+) urinary incontinence, (-) dysuria, (-) hematuria Musculoskeletal: (+) low back pain, (+) knee pain, (+) knee crepitus Neurological: (-) leg paresthesia, (-) radicular leg pain Objective BP 127/85 Pulse 73 Temp 36.3 C (97.3 F) Resp 18 Wt 79 kg (174 lb 2.6 oz) SpO2 99% BMI 34.01 kg/m Physical Exam Vitals and nursing note reviewed. Constitutional: General: She is not in acute distress. Appearance: Normal appearance. She is not toxic-appearing. Musculoskeletal: Lumbar back: Tenderness and bony tenderness present. No spasms. Decreased range of motion. Negative right straight leg raise test and negative left straight leg raise test. Comments: Decreased ROM lumbar spine. Midline tenderness noted. Negative seated straight leg raise. Normal sensation lower extremities. Able to ambulate. Lumbar spine pain worse with forward flexion. No rash present. Skin: General: Skin is warm and dry. Neurological: Mental Status: She is alert. General: No acute distress. Back: Midline tenderness over the lower back. Neuro: No numbness or tingling in the legs; no radicular pain; intact sensation bilaterally. {1. Acute midline low back pain without sciatica (M54.50) - Onset yesterday morning while getting out of bed; no history of trauma or injury. - Pain exacerbated by movement and bending; no radicular symptoms or paresthesia in the lower extremities. - Physical exam reveals tenderness over the midline lumbar spine; no neurological deficits noted. - X-ray of the lumbar spine shows degenerative changes; no fractures or dislocations. - History of chronic kidney disease; advised against NSAID use. - Prescribed Flexeril 5 mg PO at bedtime for a few days to manage acute pain. Discussed side effects of dizziness. - If pain persists, advised follow-up with primary care physician for potential physical therapy or further evaluation. - Prescription sent to [facility]. Recording using [employer] software for draft documentation of the visit was discussed with the patient/authorized medical customer service representative; all questions welcomed and answered. Patient/authorized medical customer service representative agreed to proceed History and Record Review Clinical information obtained from an independent historian. History obtained from or confirmed by: other (see comments) (Caregiver). External record(s) reviewed: prior outpatient record. Differential Diagnoses - Lumbar pain/sprain is more likely for the following reason(s): suggested by H&P - /pyelonephritis is less likely for the following reason(s): H&P not suggestive - Cauda equina is less likely for the following reason(s): H&P not suggestive - Fracture is less likely for the following reason(s): H&P not suggestive Disposition The patient was discharged. OTC Medications were advised: May continue Tylenol Procedures documented in this encounter [facility] 04-13-2025 Telephone encount er Note The patient has been identified by name and date of : Yes Caregiver verified no other encounters exist for this prescription request: Yes Caregiver confirmed with patient/requestor that no other refills are due, in the near future, with this provider at this time: Yes The last office visit in the department: 01/16/2025 Does the patient have a future office visit with this provider/department: Yes 08/14/2025 Requested Prescriptions Pending Prescriptions Disp Refills omeprazole (PRILOSEC) 20 mg capsule 60 capsule 11 Sig: Take 2 capsules by mouth once daily. Hazel Delgado RN [facility] 04-13-2025 Miscellaneous Notes Formattin g of this note is different from the original. The patient has been identified by name and date of : Yes Caregiver verified no other encounters exist for this prescription request: Yes Caregiver confirmed with patient/requestor that no other refills are due, in the near future, with this provider at this time: Yes The last office visit in the department: 01/16/2025 Does the patient have a future office visit with this provider/department: Yes 08/14/2025 Requested Prescriptions Pending Prescriptions Disp Refills omeprazole (PRILOSEC) 20 mg capsule 60 capsule 11 Sig: Take 2 capsules by mouth once daily. Hazel Delgado RN documented in this encounter [facility] 03-02-2025 Miscellaneous Notes Formattin g of this note is different from the original. The patient has been identified by name and date of : Yes, pharmacy Caregiver verified no other encounters exist for this prescription request: Yes Caregiver confirmed with patient/requestor that no other refills are due, in the near future, with this provider at this time: Yes The last office visit in the department: 01/16/2025 Does the patient have a future office visit with this provider/department: Yes 08/14/2025 Requested Prescriptions Pending Prescriptions Disp Refills insulin glargine 100 unit/mL (3 mL) 5 each 5 Sig: Inject 32 Units subcutaneously every morning. Jolene Moss LPN March 02, 2025 10:48 AM documented in this encounter [facility] 03-02-2025 Telephone encount er Note The patient has been identified by name and date of : Yes, pharmacy Caregiver verified no other encounters exist for this prescription request: Yes Caregiver confirmed with patient/requestor that no other refills are due, in the near future, with this provider at this time: Yes The last office visit in the department: 01/16/2025 Does the patient have a future office visit with this provider/department: Yes 08/14/2025 Requested Prescriptions Pending Prescriptions Disp Refills insulin glargine 100 unit/mL (3 mL) 5 each 5 Sig: Inject 32 Units subcutaneously every morning. Jolene Moss LPN March 02, 2025 10:48 AM [facility] 2025 History of Presen t illness Narrative Radiology Service Progress Note PATIENT NAME: Arcenio Rand DATE OF SERVICE: 2025 TIME: 10:32 AM PATIENT IDENTITY VERIFICATION COMPLETED USING TWO (2) IDENTIFIERS: Name and Date of confirmed by patient verbally. FALL SCREENING: Has the patient had 2 falls in the last year or 1 fall with injury or currently using an Ambulatory Assistive Device (Walker, Cane, Wheelchair, Crutches, etc.)? No PATIENT GENDER DATA: Assigned female at . status: : No status: NO. PATIENT RELEVANT IMPLANT DATA REVIEWED: Not Applicable PATIENT PRESENTS WITH AN IMPLANTABLE OR ATTACHED STOCK CAR DRIVER: No RADIOLOGY DEPARTMENT: Mammography PERIPHERAL IV DATA: Not applicable SIGNED BY: Oscar Jensen 2025 10:32 AM documented in this encounter [facility] 2025 Note HNO ID: [id number] Author: CLARISSA HAM Mammo Tech Service: ? Author Type: Technical Internship Type: Progress Notes Filed: 2025 10:32 Note Text: Radiology Service Progress Note PATIENT NAME: Arcenio Rand DATE OF SERVICE: 2025 TIME: 10:32 AM PATIENT IDENTITY VERIFICATION COMPLETED USING TWO (2) IDENTIFIERS: Name and Date of confirmed by patient verbally. FALL SCREENING: Has the patient had 2 falls in the last year or 1 fall with injury or currently using an Ambulatory Assistive Device (Walker, Cane, Wheelchair, Crutches, etc.)? No PATIENT GENDER DATA: Assigned female at . status: : No status: NO. PATIENT RELEVANT IMPLANT DATA REVIEWED: Not Applicable PATIENT PRESENTS WITH AN IMPLANTABLE OR ATTACHED STOCK CAR DRIVER: No RADIOLOGY DEPARTMENT: Mammography PERIPHERAL IV DATA: Not applicable SIGNED BY: Oscar Jensen 2025 10:32 AM [facility] 01-25-2025 Telephone encount er Note The patient has been identified by name and date of : Yes Caregiver verified no other encounters exist for this prescription request: Yes Caregiver confirmed with patient/requestor that no other refills are due, in the near future, with this provider at this time: Yes The last office visit in the department: 01/16/2025 Does the patient have a future office visit with this provider/department: Yes 08/14/2025 Requested Prescriptions Pending Prescriptions Disp Refills chlorthalidone (HYGROTON) 25 mg tablet 30 tablet 11 Sig: Take 1 tablet by mouth once daily. Viviana Hummel RN January 25, 2025 8:54 AM [facility] 01-25-2025 Miscellaneous Notes Formattin g of this note is different from the original. The patient has been identified by name and date of : Yes Caregiver verified no other encounters exist for this prescription request: Yes Caregiver confirmed with patient/requestor that no other refills are due, in the near future, with this provider at this time: Yes The last office visit in the department: 01/16/2025 Does the patient have a future office visit with this provider/department: Yes 08/14/2025 Requested Prescriptions Pending Prescriptions Disp Refills chlorthalidone (HYGROTON) 25 mg tablet 30 tablet 11 Sig: Take 1 tablet by mouth once daily. Viviana Hummel RN January 25, 2025 8:54 AM documented in this encounter [facility] 01-24-2025 Evaluation note Diagnosis Stage 3a chronic kidney disease (HCC) documented in this encounter [facility]03-31-2025 History of Present illness Narrative* Ayanna Tracy RDMS - 01/23/2025 1:00 PM EDT Radiology Service Progress Note PATIENT NAME: Arcenio Rand DATE OF SERVICE: January 23, 2025 TIME: 1:27 PM PATIENT IDENTITY VERIFICATION COMPLETED USING TWO (2) IDENTIFIERS: Name and Date of confirmedby patient verbally. FALL SCREENING: Has the patient had 2 falls in the last year or 1 fall with injury or currently using an Ambulatory Assistive Device (Walker, Cane, Wheelchair, Crutches, etc.)? No PATIENT GENDER DATA: Assigned female at . status: : No status:NO. PATIENT RELEVANT IMPLANT DATA REVIEWED: Not Applicable PATIENT PRESENTS WITH AN IMPLANTABLE OR ATTACHED STOCK CAR DRIVER: No RADIOLOGY DEPARTMENT: Ultrasound PERIPHERAL IV DATA: Not applicable SIGNED BY: Ayanna Tracy RDMS January 23, 2025 1:27 PM documented in this [facility] NoteHNO ID: [id number] Author: AYANNA TRACY RDMS Service: ? Author Type: Technical Internship Type: Progress Notes Filed: 01/23/2025 13:27 Note Text: Radiology Service Progress Note PATIENT NAME: Arcenio Rand DATE OF SERVICE: January 23, 2025 TIME: 1:27 PM PATIENT IDENTITY VERIFICATION COMPLETED USING TWO (2) IDENTIFIERS: Name and Date of confirmed by patient verbally. FALL SCREENING: Has the patient had 2 falls in the last year or 1 fall with injury or currently using an Ambulatory Assistive Device (Walker, Cane, Wheelchair, Crutches, etc.)? No PATIENT GENDER DATA: Assigned female at . status: : No status: NO. PATIENT RELEVANT IMPLANT DATA REVIEWED: Not Applicable PATIENT PRESENTS WITH AN IMPLANTABLE OR ATTACHED STOCK CAR DRIVER: No RADIOLOGY DEPARTMENT: Ultrasound PERIPHERAL IV DATA: Not applicable SIGNED BY: Ayanna Tracy RDMS January 23, 2025 1:27 [facility]03-25-2025 Telephone encounter Note* Telephone Encounter - Estrella Cutler MA - 01/17/2025 2:22 PM EDT Informed. Estrella Cutler MA [facility]03-25-2025 Miscellaneous Notes* Telephone Encounter - Estrella Cutler MA - 01/17/2025 2:22 PM EDT Informed. Estrella Cutler MA * Telephone Encounter - Ranjeet Goodwin MD - 01/17/2025 2:09 PM EDT Not for now * Telephone Encounter - Melissa Ohara LPN - 01/17/2025 1:55 PM EDT Carter notified of 's message in regards to holding celebrex. Carter is asking if there are any other meds that should be held. Melissa Ohara LPN * Telephone Encounter - Ranjeet Goodwin MD - 01/17/2025 1:45 PM EDT Please hold it * Telephone Encounter - Estrella Cutler MA - 01/17/2025 1:22 PM EDT Spoke with Carter, patients ekg monitor tech. Informed of results. She verbalized understanding. Transferred to scheduling for renal US. Patient takes Celebrex daily. Carter wants to know if this should be discontinued? Estrella Cutler MA * Telephone Encounter - Ranjeet Goodwin MD - 01/17/2025 8:12 AM EDT Repeat kidney function shows her kidneys have slowed down a little on the microscopic level. It is not at a dangerous level and likely related to her dm and bp but I want to make sure we dont need todo anything else. Check renal us Check bmp and ua in one month. Avoid things like advil or aleve. [facility] Telephone encounter Note * Telephone Encounter - Ranjeet Goodwin MD - 01/17/2025 2:09 PM EDT Not for now [facility]03-25-2025 Telephone encounter Note* Telephone Encounter - Melissa Ohara LPN - 01/17/2025 1:55 PM EDT Carter notified of 's message in regards to holding celebrex. Carter is asking if there are any other meds that should be held. Melissa Ohara LPN [facility]03-25-2025 Telephone encounter Note* Telephone Encounter - Ranjeet Goodwin MD - 01/17/2025 1:45 PM EDT Please hold it [facility]03-25-2025 Telephone encounter Note* Telephone Encounter - Estrella Cutler MA - 01/17/2025 1:22 PM EDT Spoke with Carter, patients ekg monitor tech. Informed of results. She verbalized understanding. Transferred to scheduling for renal US. Patient takes Celebrex daily. Carter wants to know if this should be discontinued? Estrella Cutler MA [facility]03-25-2025 Telephone encounter Note* Telephone Encounter - Ranjeet Goodwin MD - 01/17/2025 8:12 AM EDT Repeat kidney function shows her kidneys have slowed down a little on the microscopic level. It is not at a dangerous level and likely related to her dm and bp but I want to make sure we dont need todo anything else. Check renal us Check bmp and ua in one month. Avoid things like advil or aleve. [facility]03-25-2025 Evaluation note* Diagnosis Stage 3a chronic kidney disease (HCC)- Primary documented in this encounter [facility]03-25-2025 Evaluation note* Diagnosis Stage 3a chronic kidney disease (HCC)- Primary documented in this encounter [facility]03-24-2025 NoteHNO ID: [id number] Author: RANJEET GOODWIN MD Service: ? Author Type: Physician Type: Progress Notes Filed: 01/16/2025 11:49 Note Text: Patient presents with: 6 Month Exam HPI: Patient presents today for office visit for follow up. DM: Reports overall feeling well. Medication side effects: No. Home sugar check frequency/results:twice daily using insulin Hypoglycemic spells: No. Watching diet: Yes. Unexpected weight loss: No. Polyuria, polydipsia: No. Vision Changes: No. Foot lesions or numbness or pain: does have a toe to check hit it on tand Thursday. No pain. In the morning when she wakes up she notices her feet are red. No redness or temp changes. HTN: Brings reading to office. No chest pain, shortness of breath, edema, palpitations. No gerd. Still using cpap. Benefiting from its use. Latest Ref Rng 01/10/2025 WBC 3.70 - 11.00 k/uL 9.03 RBC 3.90 - 5.20 m/uL 4.29 Hemoglobin 11.5 - 15.5 g/dL 12.5 Hematocrit 36.0 - 46.0 % 39.5 MCV 80.0 - 100.0 fL 92.1 MCH 26.0 - 34.0 pg 29.1 MCHC 30.5 - 36.0 g/dL 31.6 RDW-CV 11.5 - 15.0 % 14.0 Platelet Count 150 - 400 k/uL 315 MPV 9.0 - 12.7 fL 10.3 Neut% % 67.1 Abs Neut (ANC) 1.45 - 7.50 k/uL 6.06 Lymph% % 21.7 Abs Lymph 1.00 - 4.00 k/uL 1.96 Tyrrell% % 8.1 Abs Tyrrell <0.87 k/uL 0.73 Eosin% % 2.1 Abs Eosin <0.46 k/uL 0.19 Baso% % 0.7 Abs Baso <0.11 k/uL 0.06 Immature Gran % % 0.3 IMMATURE GRANS (ABS) <0.10 k/uL 0.03 NRBC /100 WBC 0.0 Absolute nRBC <0.01 k/uL <0.01 DTYPE Auto Protein, Total 6.3 - 8.0 g/dL 7.0 Albumin 3.9 - 4.9 g/dL 4.1 Calcium 8.5 - 10.2 mg/dL 9.5 Bilirubin, Total 0.2 - 1.3 mg/dL 0.4 Alkaline Phosphatase 34 - 123 U/L 54 AST 13 - 35 U/L 17 ALT 7 - 38 U/L 15 Glucose 74 - 99 mg/dL 154 (H) BUN 7 - 21 mg/dL 28 (H) Creatinine 0.58 - 0.96 mg/dL 1.21 (H) Sodium 136 - 144 mmol/L 140 Potassium 3.7 - 5.1 mmol/L 4.0 Chloride 98 - 107 mmol/L 99 CO2 22 - 30 mmol/L 26 Anion Gap 8 - 15 mmol/L 15 eGFR >=60 mL/min/1.73m? 52 (L) Cholesterol, Total <200 mg/dL 183 Triglyceride <150 mg/dL 316 (H) HDL Cholesterol >39 mg/dL 47 Non HDL Cholesterol <130 mg/dL 136 (H) Fasting Time hrs 12 VLDL Cholesterol <30 mg/dL 63 (H) TC:HDL Ratio <5.10 3.89 LDL Cholesterol <100 mg/dL 73 LDL:HDL Ratio <2.54 1.55 Creatinine, Ur Random (UCRR) 20.0 - 300.0 mg/dL 96.2 Albumin, Urine Random mg/L 17.9 Albumin/Creat Ratio <30 mg/g 19 Hemoglobin A1C 4.3 - 5.6 % 7.0 (H) Estimated Average Glucose mg/dL 154 Vitamin B12 232 - 1,245 pg/mL 1,236 Legend: (H) High (L) LowEDICATIONS: Current Outpatient Medications Medication Sig celecoxib (CELEBREX) 200 mg capsule Take 1 capsule by mouth once daily. DULoxetine (CYMBALTA) 60 mg capsule Take 1 capsule by mouth once daily. atorvastatin (LIPITOR) 20 mg tablet Take 1 tablet by mouth daily at bedtime. For cholesterol. empagliflozin (JARDIANCE) 25 mg tablet Take 1 tablet by mouth once daily. estradiol (ESTRACE) 1 mg tablet Take 1 tablet by mouth once daily. metFORMIN ER (GLUCOPHAGE XR) 500 mg 24 hr tablet Take 2 tablet by mouth twice daily with food. SITagliptin phosphate (JANUVIA) 100 mg tablet Take 1 tablet by mouth once daily. levothyroxine (SYNTHROID) 50 mcg tablet Take 1 tablet by mouth once daily. Take on empty stomach. For Thyroid. aspirin, enteric coated (ASPIRIN, ENTERIC COATED) 81 mg EC tablet Take 1 tablet by mouth once daily. (self-started) cyanocobalamin (VITAMIN B-12) 1,000 mcg tab Take 1 tablet by mouth once daily. multivitamin-ferrous fumarate-folic acid (CENTRUM) Take 1 tablet by mouth once daily. pioglitazone (ACTOS) 30 mg tablet Take 1 tablet by mouth once daily. lisinopril (ZESTRIL) 40 mg tablet Take 1 tablet by mouth once daily. omeprazole (PRILOSEC) 20 mg capsule Take 2 capsules by mouth once daily. chlorthalidone (HYGROTON) 25 mg tablet Take 1 tablet by mouth once daily. hydrOXYzine HCl (ATARAX) 25 mg tablet Take 1 tablet by mouth every 6 hours as needed for anxiety. Cholecalciferol, Vitamin D3, (VITAMIN D-3) 50 mcg (2,000 unit) cap Take 1 capsule by mouth once daily. atenolol (TENORMIN) 100 mg tablet Take 1 tablet by mouth once daily. CPAP/BIPAP/OTHER autoCPAP 5-12 cmH2O DME [employer] Insulin [place], Disposable, (BD ULTRA-FINE ROSALIE PEN NEEDLE) 32 gauge x 32 Use to inject insulin once daily as directed Lancets One Touch Test blood sugar(s) 2 times daily. Dx: Type 2 DM - Controlled E11.9 Insulin: Yes insulin glargine 100 unit/mL (3 mL) Inject 32 Units subcutaneously every morning. blood sugar diagnostic (BLOOD GLUCOSE TEST) test strip Test blood sugar(s) 2 times daily. Dx: Type 2 DM - Controlled E11.9 Insulin: Yes nystatin (MYCOSTATIN) cream Apply 1 application to affected area two times a day. On left foot triamcinolone acetonide (KENALOG) 0.1 % ointment Apply to affected area twice daily. X 2 weeks; then take a break X 1 week. If still present, then restart X 2 more weeks. sertraline (ZOLOFT) 5 (more content not included)...[facility] 01-16-2025 History of Present illness Narrative* Ranjeet Goodwin MD - 01/16/2025 10:38 AM EDT Patient presents with: 6 Month Exam HPI: Patient presents today for office visit for follow up. DM: Reports overall feeling well. Medication side effects: No. Home sugar check frequency/results:twice daily using insulin Hypoglycemic spells: No. Watching diet: Yes. Unexpected weight loss: No. Polyuria, polydipsia: No. Vision Changes: No. Foot lesions or numbness or pain: does have a toe to check hit it on nightstand Thursday. No pain. In the morning when she wakes up she notices her feet are red. No redness or temp changes. HTN: Brings reading to office. No chest pain, shortness of breath, edema, palpitations. No gerd. Still using cpap. Benefiting from its use. Latest Ref Rn 01/10/2025 WBC 3.70 - 11.00 k/uL 9.03 RBC 3.90 - 5.20 m/uL 4.29 Hemoglobin 11.5 - 15.5 g/dL 12.5 Hematocrit 36.0 - 46.0 % 39.5 MCV 80.0 - 100.0 fL 92.1 MCH 26.0 - 34.0 pg 29.1 MCHC 30.5 - 36.0 g/dL 31.6 RDW-CV 11.5 - 15.0 % 14.0 Platelet Count 150 - 400 k/uL 315 MPV 9.0 - 12.7 fL 10.3 Neut% % 67.1 Abs Neut (ANC) 1.45 - 7.50 k/uL 6.06 Lymph% % 21.7 Abs Lymph 1.00 - 4.00 k/uL 1.96 Tyrrell% % 8.1 Abs Tyrrell <0.87 k/uL 0.73 Eosin% % 2.1 Abs Eosin <0.46 k/uL 0.19 Baso% % 0.7 Abs Baso <0.11 k/uL 0.06 Immature Gran % % 0.3 IMMATURE GRANS (ABS) <0.10 k/uL 0.03 NRBC /100 WBC 0.0 Absolute nRBC <0.01 k/uL <0.01 DTYPE Auto Protein, Total 6.3 - 8.0 g/dL 7.0 Albumin 3.9 - 4.9 g/dL 4.1 Calcium 8.5 - 10.2 mg/dL 9.5 Bilirubin, Total 0.2 - 1.3 mg/dL 0.4 Alkaline Phosphatase 34 - 123 U/L 54 AST 13 - 35 U/L 17 ALT 7 - 38 U/L 15 Glucose 74 - 99 mg/dL 154 (H) BUN 7 - 21 mg/dL 28 (H) Creatinine 0.58 - 0.96 mg/dL 1.21 (H) Sodium 136 - 144 mmol/L 140 Potassium 3.7 - 5.1 mmol/L 4.0 Chloride 98 - 107 mmol/L 99 CO2 22 - 30 mmol/L 26 Anion Gap 8 - 15 mmol/L 15 eGFR >=60 mL/min/1.73m 52 (L) Cholesterol, Total <200 mg/dL 183 Triglyceride <150 mg/dL 316 (H) HDL Cholesterol >39 mg/dL 47 Non HDL Cholesterol <130 mg/dL 136 (H) Fasting Time hrs 12 VLDL Cholesterol <30 mg/dL 63 (H) TC:HDL Ratio <5.10 3.89 LDL Cholesterol <100 mg/dL 73 LDL:HDL Ratio <2.54 1.55 Creatinine, Ur Random (UCRR) 20.0 - 300.0 mg/dL 96.2 Albumin, Urine Random mg/L 17.9 Albumin/Creat Ratio <30 mg/g 19 Hemoglobin A1C 4.3 - 5.6 % 7.0 (H) Estimated Average Glucose mg/dL 154 Vitamin B12 232 - 1,245 pg/mL 1,236 Legend: (H) High (L) LowEDICATIONS: Current Outpatient Medications Medication Sig celecoxib (CELEBREX) 200 mg capsule Take 1 capsule by mouth once daily. DULoxetine (CYMBALTA) 60 mg capsule Take 1 capsule by mouth once daily. atorvastatin (LIPITOR) 20 mg tablet Take 1 tablet by mouth daily at bedtime. For cholesterol. empagliflozin (JARDIANCE) 25 mg tablet Take 1 tablet by mouth once daily. estradiol (ESTRACE) 1 mg tablet Take 1 tablet by mouth once daily. metFORMIN ER (GLUCOPHAGE XR) 500 mg 24 hr tablet Take 2 tablet by mouth twice daily with food. SITagliptin phosphate (JANUVIA) 100 mg tablet Take 1 tablet by mouth once daily. levothyroxine (SYNTHROID) 50 mcg tablet Take 1 tablet by mouth once daily. Take on empty stomach. For Thyroid. aspirin, enteric coated (ASPIRIN, ENTERIC COATED) 81 mg EC tablet Take 1 tablet by mouth once daily. (self-started) cyanocobalamin (VITAMIN B-12) 1,000 mcg tab Take 1 tablet by mouth once daily. multivitamin-ferrous fumarate-folic acid (CENTRUM) Take 1 tablet by mouth once daily. pioglitazone (ACTOS) 30 mg tablet Take 1 tablet by mouth once daily. lisinopril (ZESTRIL) 40 mg tablet Take 1 tablet by mouth once daily. omeprazole (PRILOSEC) 20 mg capsule Take 2 capsules by mouth once daily. chlorthalidone (HYGROTON) 25 mg tablet Take 1 tablet by mouth once daily. hydrOXYzine HCl (ATARAX) 25 mg tablet Take 1 tablet by mouth every 6 hours as needed for anxiety. Cholecalciferol, Vitamin D3, (VITAMIN D-3) 50 mcg (2,000 unit) cap Take 1 capsule by mouth once daily. atenolol (TENORMIN) 100 mg tablet Take 1 tablet by mouth once daily. CPAP/BIPAP/OTHER autoCPAP 5-12 cmH2O DME [employer] Insulin [place], Disposable, (BD ULTRA-FINE ROSALIE PEN NEEDLE) 32 gauge x Use to inject insulinonce daily as directed Lancets One Touch Test blood sugar(s) 2 times daily. Dx: Type 2 DM - Controlled E11.9 Insulin: Yes insulin glargine 100 unit/mL (3 mL) Inject 32 Units subcutaneously every morning. blood sugar diagnostic (BLOOD GLUCOSE TEST) test strip Test blood sugar(s) 2 times daily. Dx: Type 2 DM - Controlled E11.9 Insulin: Yes nystatin (MYCOSTATIN) cream Apply 1 application to affected area two times a day. On left foot triamcinolone acetonide (KENALOG) 0.1 % ointment Apply to affected area twice daily. X 2 weeks; then take a break X 1 week. If still present, then restart X 2 more weeks. sertraline (ZOLOFT) 50 mg tablet Take 1 tablet by mouth once daily. blood sugar diagnostic (BLOOD GLUCOSE TEST) test strip Test blood sugar(s) 2 times daily. Dx: Type 2 DM - Uncontrolled E11.65 Insulin: Yes COMPOUNDED PRESCRIPTION Diabetic shoes No current facility-administered medications for this visit. ALLERGIES: ALLERGIES Allergen Reactions Amoxicillin Other: See Comments Bleach (Sodium Hypo* Hives Penicillins Other: See Comments Sulfa (Sulfonamide * Rash & dry heaves. PAST MEDICAL HISTORY Diagnosis Date Arthralgia Chronic back pain Depression Developmental delay Diabetic neuropathy (HCC) feet DM (diabetes mellitus) (HCC) Hypertension Hypothyroid Mental disorder Snoring PAST SURGICAL HISTORY Procedure Laterality Date COLONOSCOPY FLX DX W/COLLJ SPEC WHEN PFRMD 09/23/2018 Colonoscopy HYSTERECTOMY N/A XCAPSL CTRC RMVL INSJ IO LENS PROSTH CPLX WO ECP FAMILY HISTORY Problem Relation Age of Onset Arthritis Mother Diabetes Mother Hypertension Mother Hyperlipidemia Mother Social History Tobacco Use Smoking status: Never Smokeless tobacco: Never Vaping Use Vaping status: Never Used Substance Use Topics Alcohol use: No Drug use: No Reviewed current medications, allergies, past medical history, surgical history, family history andsocial history today. REVIEW OF SYSTEMS All other reviewed and negative other than HPI. HEALTH MAINTENANCE: Reviewed health maintenance issues today and recommended the following in detail. Pneumococcal Vaccine: 50+(2 of 2 - PCV) due on 09/19/2021 Influenza Vaccine(1) due on 06/26/2024 Covid-19 Vaccine( season) due on 06/26/2024 Mammogram Screening-scheduled. VITALS: BP 122/72 Pulse 61 Wt 78 kg (172 lb) SpO2 96% BMI 33.59 kg/m Last 4 Encounter Wt Readings: Date: Wt: 12/26/2024 78.2 kg (172 lb 6.4 oz) 11/28/2024 78.2 kg (172 lb 6.4 oz) 11/21/2024 79 kg (174 lb 2.6 oz) 11/03/2024 80 kg (176 lb 5.9 oz) PHYSICAL EXAMINATION: General appearance: Well appearing, alert, in no acute distress, well-hydrated, well nourished. Skin: Skin color, texture, turgor normal, no suspicious rashes or lesions Head: Normocephalic, no masses, lesions, tenderness or abnormalities Neck: Supple, no adenopathy; thyroid symmetric, normal size, no bruits Lungs: Lungs clear to auscultation. No wheezing, rhonchi, rales Heart: RRR without murmur, gallop, or rubs. No ectopy Abdomen: Normal abdominal exam, Abdomen soft, non-tender. Bowel sounds normal. No masses, organomegaly Extremities: No deformities, edema, skin discoloration, clubbing or cyanosis. Good capillary refill. Musculoskeletal: No joint swelling, deformity, or tenderness Feet:Shoes and socks removed, normal distal pulses, not sensitive to monofilament, nails notable for Crumbly, Deformed, Hypertrophic, or Yellowish, and has an abrasion on great toe. Discussed care. Red flags for re-assessment reviewed with patient in detail. ASSESSMENT/PLAN: 1. 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 Essential hypertension, benign - ICD9: 401.1, ICD10: I10 - Controlled - Continue current medications 3. Mixed hyperlipidemia - ICD9: 272.2, ICD10: E78.2 - Controlled - work on starches and fats 4. HIMANSHU on CPAP - ICD9: 327.23, ICD10: G47.33 - continue cpap 5. Vitamin B 12 deficiency - ICD9: 266.2, ICD10: E53.8 - stable. 6. Microalbuminuria - ICD9: 791.0, ICD10: R80.9 -on isabel 7. Acquired hypothyroidism - ICD9: 244.9, ICD10: E03.9 Check tsh next month. 8. Depression, unspecified depression type - ICD9: 311, ICD10: F32.A - stable. 9. Renal insufficiency - ICD9: 593.9, ICD10: N28.9 - push fluids. - BASIC METABOLIC PANEL 10. Encounter for immunization - ICD9: V03.89, ICD10: Z23 - PFIZER-BIONTECH COVID-19 VACCINE AGE 12+ YR (COMIRNATY) - PNEUMOCOCCAL VACCINE, 20 VALENT (PREVNAR 20) - Red flags for re-assessment reviewed with patient in detail. 11. Abrasion of left great toe, initial encounter - ICD9: 917.0, ICD10: S90.412A - Red flags for re-assessment reviewed with patient in detail. Discussed foot care Ranjeet Goodwin MD [facility] Telephone encounter Note * Telephone Encounter - Anne Marie Ernandez APRN.[facility] - 12/29/2024 11:44 AM EST Change antibiotic to Keflex. Called the patient's care facility they said her allergy to amoxicillin is only a rash. Patient should tolerate Keflex well. [facility]03-06-2025 Miscellaneous Notes* Telephone Encounter - Anne Marie Ernandez APRN.CNP - 12/29/2024 11:44 AM EST Change antibiotic to Keflex. Called the patient's care facility they said her allergy to amoxicillin is only a rash. Patient should tolerate Keflex well. [facility] NoteHNO ID: [id number] Author: ANEGLO ETIENNE PA-C Service: ? Author Type: Physician Community Mental Health Social Worker Type: Progress Notes Filed: 12/26/2024 12:30 Note Text: This note was created using [employer]. Subjective Arcenio Rand is a 59 year old female. Patient is a 59-year-old female who is brought by caregiver for evaluation of urinary frequency that she has been experiencing for the past 1 day. Patient does have developmental delay but does answer questions appropriately. Patient also describes mild dysuria. Caregiver reports no fever and states that the patient has complained of no additional illness symptoms. Patient does have a history of urinary tract infection, however her last episode was approximately 5 years ago. Review of Systems Genitourinary: Positive for dysuria, frequency and urgency. All other systems reviewed and are negative. Objective BP 110/68 Pulse 64 Temp 36.4 ?C (97.6 ?F) Resp 16 Wt 78.2 kg (172 lb 6.4 oz) SpO2 98% BMI 33.67 kg/m? Physical Exam Vitals and nursing note reviewed. Constitutional: Appearance: Normal appearance. She is normal weight. HENT: Head: Normocephalic and atraumatic. Right Ear: External ear normal. Left Ear: External ear normal. Nose: Nose normal. Mouth/Throat: Mouth: Mucous membranes are moist. Pharynx: Oropharynx is clear. Eyes: Extraocular Movements: Extraocular movements intact. Conjunctiva/sclera: Conjunctivae normal. Pupils: Pupils are equal, round, and reactive to light. Cardiovascular: Rate and Rhythm: Normal rate. Pulses: Normal pulses. Heart sounds: Normal heart sounds. Pulmonary: Effort: Pulmonary effort is normal. Breath sounds: Normal breath sounds. Abdominal: General: Abdomen is flat. Palpations: Abdomen is soft. Musculoskeletal: Cervical back: Normal range of motion and neck supple. Skin: General: Skin is warm and dry. Capillary Refill: Capillary refill takes less than 2 seconds. Neurological: General: No focal deficit present. Mental Status: She is alert and oriented to person, place, and time. Psychiatric: Mood and Affect: Mood normal. Behavior: Behavior normal. Thought Content: Thought content normal. Judgment: Judgment normal. Assessment and Plan Physical exam findings as noted above. Urinalysis shows leukocyte esterase with moderate blood. >1000 glucose is noted, however the patient is diabetic and her caregiver reports that the patient is taking her medication for same as directed. Urine culture was ordered. Patient was provided with prescriptions for Macrobid 100 mg and Pyridium 100 mg. Caregiver for was advised that results of urine culture be available in 2 days and she will be contacted if there is need to change medication based on the sensitivity report. Caregiver expresses excellent understanding of the above instructions. CLINICAL IMPRESSION: Acute UTI ASSESSMENT/PLAN: 1. Urinary frequency - ICD9: 788.41, ICD10: R35.0 (primary diagnosis) - UA DIP, URINE (POC) 2. Acute UTI - ICD9: 599.0, ICD10: N39.0 - BACTERIAL CULTURE, URINE - NITROFURANTOIN MONOHYDRATE AND MACROCRYSTAL 100 MG ORAL CAP - PHENAZOPYRIDINE 100 MG TABLET ALEJANDRA [facility]03-03-2025 History of Present illness Narrative* Angelo Etienne PA-C - 12/26/2024 12:25 PM EST This note was created using [employer]. Subjective Arcenio Rand is a 59 year old female. Patient is a 59-year-old female who is brought by caregiver for evaluation of urinary frequency that she has been experiencing for the past 1 day. Patient does have developmental delay but does answer questions appropriately. Patient also describes mild dysuria. Caregiver reports no fever and states that the patient has complained of no additional illness symptoms. Patient does have a history of urinary tract infection, however her last episode was approximately 5 years ago. Review of Systems Genitourinary: Positive for dysuria, frequency and urgency. All other systems reviewed and are negative. Objective BP 110/68 Pulse 64 Temp 36.4 C (97.6 F) Resp 16 Wt 78.2 kg (172 lb 6.4 oz) SpO2 98% BMI33.67 kg/m Physical Exam Vitals and nursing note reviewed. Constitutional: Appearance: Normal appearance. She is normal weight. HENT: Head: Normocephalic and atraumatic. Right Ear: External ear normal. Left Ear: External ear normal. Nose: Nose normal. Mouth/Throat: Mouth: Mucous membranes are moist. Pharynx: Oropharynx is clear. Eyes: Extraocular Movements: Extraocular movements intact. Conjunctiva/sclera: Conjunctivae normal. Pupils: Pupils are equal, round, and reactive to light. Cardiovascular: Rate and Rhythm: Normal rate. Pulses: Normal pulses. Heart sounds: Normal heart sounds. Pulmonary: Effort: Pulmonary effort is normal. Breath sounds: Normal breath sounds. Abdominal: General: Abdomen is flat. Palpations: Abdomen is soft. Musculoskeletal: Cervical back: Normal range of motion and neck supple. Skin: General: Skin is warm and dry. Capillary Refill: Capillary refill takes less than 2 seconds. Neurological: General: No focal deficit present. Mental Status: She is alert and oriented to person, place, and time. Psychiatric: Mood and Affect: Mood normal. Behavior: Behavior normal. Thought Content: Thought content normal. Judgment: Judgment normal. Assessment and Plan Physical exam findings as noted above. Urinalysis shows leukocyte esterase with moderate blood. >1000 glucose is noted, however the patient is diabetic and her caregiver reports that the patient is taking her medication for same as directed. Urine culture was ordered. Patient was provided with prescriptions for Macrobid 100 mg and Pyridium 100 mg. Caregiver for was advised that results of urine culture be available in 2 days and she will be contacted if there is need to change medication based on the sensitivity report. Caregiver expresses excellent understanding of the above instructions. CLINICAL IMPRESSION: Acute UTI ASSESSMENT/PLAN: 1. Urinary frequency - ICD9: 788.41, ICD10: R35.0 (primary diagnosis) - UA DIP, URINE (POC) 2. Acute UTI - ICD9: 599.0, ICD10: N39.0 - BACTERIAL CULTURE, URINE - NITROFURANTOIN MONOHYDRATE & MACROCRYSTAL 100 MG ORAL CAP - PHENAZOPYRIDINE 100 MG TABLET Angelo Etienne PA-C documented [facility] Telephone encounter Note * Telephone Encounter - Jolene Moss LPN - 12/22/2024 10:21 AM EST The patient has been identified by name and date of : Yes Caregiver verified no other encounters exist for this prescription request: Yes Caregiver confirmed with patient/requestor that no other refills are due, in the near future, with this provider at this time: Yes The last office visit in the department: 06/06/2024 Does the patient have a future office visit with this provider/department: No 01/16/2025 Requested Prescriptions Pending Prescriptions Disp Refills celecoxib (CELEBREX) 200 mg capsule 30 capsule 2 Sig: Take 1 capsule by mouth once daily. DULoxetine (CYMBALTA) 60 mg capsule 90 capsule 1 Sig: Take 1 capsule by mouth once daily. Jolene Moss LPN December 22, 2024 10:22 AM [facility]02-27-2025 Miscellaneous Notes* Telephone Encounter - Jolene Moss LPN - 12/22/2024 10:21 AM EST The patient has been identified by name and date of : Yes Caregiver verified no other encounters exist for this prescription request: Yes Caregiver confirmed with patient/requestor that no other refills are due, in the near future, with this provider at this time: Yes The last office visit in the department: 06/06/2024 Does the patient have a future office visit with this provider/department: No 01/16/2025 Requested Prescriptions Pending Prescriptions Disp Refills celecoxib (CELEBREX) 200 mg capsule 30 capsule 2 Sig: Take 1 capsule by mouth once daily. DULoxetine (CYMBALTA) 60 mg capsule 90 capsule 1 Sig: Take 1 capsule by mouth once daily. Jolene Moss LPN December 22, 2024 10:22 AM documented in this encounterA[facility] Telephone encounter Note * Telephone Encounter - Adelaide Donovan APRN.CNP - 12/01/2024 5:35 PM EST The following approved medication requests have been transmitted electronically. Requested Prescriptions Pending Prescriptions Disp Refills atorvastatin (LIPITOR) 20 mg tablet 90 tablet 1 Sig: Take 1 tablet by mouth daily at bedtime. For cholesterol. atenolol (TENORMIN) 100 mg tablet 90 tablet 1 Sig: Take 1 tablet by mouth once daily. empagliflozin (JARDIANCE) 25 mg tablet 90 tablet 1 Sig: Take 1 tablet by mouth once daily. estradiol (ESTRACE) 1 mg tablet 90 tablet 1 Sig: Take 1 tablet by mouth once daily. metFORMIN ER (GLUCOPHAGE XR) 500 mg 24 hr tablet 360 tablet 1 Sig: Take 2 tablet by mouth twice daily with food. SITagliptin phosphate (JANUVIA) 100 mg tablet 90 tablet 1 Sig: Take 1 tablet by mouth once daily. Adelaide Donovan APRN.ZIGGY [facility]02-06-20[facility] Miscellaneous Notes* Telephone Encounter - Adelaide Donovan APRN.ZIGGY - 12/01/2024 5:35 PM EST The following approved medication requests have been transmitted electronically. Requested Prescriptions Pending Prescriptions Disp Refills atorvastatin (LIPITOR) 20 mg tablet 90 tablet 1 Sig: Take 1 tablet by mouth daily at bedtime. For cholesterol. atenolol (TENORMIN) 100 mg tablet 90 tablet 1 Sig: Take 1 tablet by mouth once daily. empagliflozin (JARDIANCE) 25 mg tablet 90 tablet 1 Sig: Take 1 tablet by mouth once daily. estradiol (ESTRACE) 1 mg tablet 90 tablet 1 Sig: Take 1 tablet by mouth once daily. metFORMIN ER (GLUCOPHAGE XR) 500 mg 24 hr tablet 360 tablet 1 Sig: Take 2 tablet by mouth twice daily with food. SITagliptin phosphate (JANUVIA) 100 mg tablet 90 tablet 1 Sig: Take 1 tablet by mouth once daily. Adelaide Donovan APRN.CNP * Telephone Encounter - Hazel Delgado RN - 12/01/2024 12:24 PM EST The patient has been identified by name and date of : Yes Caregiver verified no other encounters exist for this prescription request: Yes Caregiver confirmed with patient/requestor that no other refills are due, in the near future, with this provider at this time: Yes The last office visit in the department: 06/06/2024 Does the patient have a future office visit with this provider/department: Yes 12/19/2024 Requested Prescriptions Pending Prescriptions Disp Refills atorvastatin (LIPITOR) 20 mg tablet 90 tablet 1 Sig: Take 1 tablet by mouth daily at bedtime. For cholesterol. atenolol (TENORMIN) 100 mg tablet 90 tablet 1 Sig: Take 1 tablet by mouth once daily. empagliflozin (JARDIANCE) 25 mg tablet 90 tablet 1 Sig: Take 1 tablet by mouth once daily. estradiol (ESTRACE) 1 mg tablet 90 tablet 1 Sig: Take 1 tablet by mouth once daily. metFORMIN ER (GLUCOPHAGE XR) 500 mg 24 hr tablet 360 tablet 1 Sig: Take 2 tablet by mouth twice daily with food. SITagliptin phosphate (JANUVIA) 100 mg tablet 90 tablet 1 Sig: Take 1 tablet by mouth once daily. Hazel Delgado RN documented in this encounterA[facility] Telephone encounter Note * Telephone Encounter - Hazel Delgado RN - 12/01/2024 12:24 PM EST The patient has been identified by name and date of : Yes Caregiver verified no other encounters exist for this prescription request: Yes Caregiver confirmed with patient/requestor that no other refills are due, in the near future, with this provider at this time: Yes The last office visit in the department: 06/06/2024 Does the patient have a future office visit with this provider/department: Yes 12/19/2024 Requested Prescriptions Pending Prescriptions Disp Refills atorvastatin (LIPITOR) 20 mg tablet 90 tablet 1 Sig: Take 1 tablet by mouth daily at bedtime. For cholesterol. atenolol (TENORMIN) 100 mg tablet 90 tablet 1 Sig: Take 1 tablet by mouth once daily. empagliflozin (JARDIANCE) 25 mg tablet 90 tablet 1 Sig: Take 1 tablet by mouth once daily. estradiol (ESTRACE) 1 mg tablet 90 tablet 1 Sig: Take 1 tablet by mouth once daily. metFORMIN ER (GLUCOPHAGE XR) 500 mg 24 hr tablet 360 tablet 1 Sig: Take 2 tablet by mouth twice daily with food. SITagliptin phosphate (JANUVIA) 100 mg tablet 90 tablet 1 Sig: Take 1 tablet by mouth once daily. Hazel Delgado RN [facility]02-03-[facility] History of Present illness Narrative* Chyna Pérez APRN.CNP - 11/28/2024 11:30 AM EST Images from the original note were not included. [facility] Follow up/ Established patient visit Date of last visit : 06/06/2024 The following Impression/Plan was copied and pasted from the patient's last [facility] visit on 06/06/24: IMPRESSION: Himanshu on cpap (primary encounter diagnosis) Arcenio Rand is a 59 year old female with PMH of severe HIMANSHU. --Patient is compliant with PAP therapy and reports subjective benefits from treatment --We reviewed PAP compliance report; AHI is normalized PLAN: - Continue Auto CPAP at 7-15 cmH2O. I changed the pressure setting from 10-20. - Remember to clean your mask and equipment regularly, as directed. - You should be eligible for new supplies approximately every 3-6 months, depending on your insurance coverage. Contact your Durable Medical Equipment (DME) company for new supplies as needed. - Follow up in 12 months with [facility] Chyna Pérez APRN.CNP Here for follow up for severe HIMANSHU, presents today because of mask issue Dislikes her mask--has a hybrid FFM, causes skin irritation so she doesn't tolerate it the full 4 hrs Tends to have sensitive skin Uses all water in the chamber each night, can run out before morning Finding it harder to wake up in the morning SLEEP APNEA Sleep apnea type : HIMANSHU, Most Recent Apnea-Hypopnea Index (AHI): 41 Treatment : PAP therapy DME: [facility] PAP History: Current PAP settin-15 cm H2O. Difficulties with AutoPAP: Yes: see above Reviewed objective PAP compliance data: Mask type: hybrid full face mask Mask issues: skin irritation There is a perceived benefit by the patient: less sleepy during day SLEEP HYGIENE QUESTIONS: Bedtime : 8-9 pm Wake up Time : 6 am Time it takes to fall sleep : 1 hr Number of times patient wakes up per night : 2-3 Reason (s) why patient wakes up during the night : urination Estimated total sleep time ( in a 24 hour period of time) : 7 Naps : daily lately PATIENT-ENTERED QUESTIONNAIRE SLEEP SCORES ALLERGIES Allergen Reactions Amoxicillin Other: See Comments Bleach (Sodium Hypo* Hives Penicillins Other: See Comments Sulfa (Sulfonamide * Rash & dry heaves. CURRENT MEDICATIONS: celecoxib (CELEBREX) 200 mg capsule Take 1 capsule by mouth once daily. levothyroxine (SYNTHROID) 50 mcg tablet Take 1 tablet by mouth once daily. Take on empty stomach. For Thyroid. aspirin, enteric coated (ASPIRIN, ENTERIC COATED) 81 mg EC tablet Take 1 tablet by mouth once daily. (self-started) cyanocobalamin (VITAMIN B-12) 1,000 mcg tab Take 1 tablet by mouth once daily. multivitamin-ferrous fumarate-folic acid (CENTRUM) Take 1 tablet by mouth once daily. DULoxetine (CYMBALTA) 60 mg capsule Take 1 capsule by mouth once daily. atenolol (TENORMIN) 100 mg tablet Take 1 tablet by mouth once daily. atorvastatin (LIPITOR) 20 mg tablet Take 1 tablet by mouth daily at bedtime. For cholesterol. empagliflozin (JARDIANCE) 25 mg tablet Take 1 tablet by mouth once daily. estradiol (ESTRACE) 1 mg tablet Take 1 tablet by mouth once daily. metFORMIN ER (GLUCOPHAGE XR) 500 mg 24 hr tablet Take 2 tablet by mouth twice daily with food. pioglitazone (ACTOS) 30 mg tablet Take 1 tablet by mouth once daily. SITagliptin phosphate (JANUVIA) 100 mg tablet Take 1 tablet by mouth once daily. lisinopril (ZESTRIL) 40 mg tablet Take 1 tablet by mouth once daily. Insulin [place], Disposable, (BD ULTRA-FINE ROSALIE PEN NEEDLE) 32 gauge x Use to inject insulinonce daily as directed omeprazole (PRILOSEC) 20 mg capsule Take 2 capsules by mouth once daily. Lancets One Touch Test blood sugar(s) 2 times daily. Dx: Type 2 DM - Controlled E11.9 Insulin: Yes blood sugar diagnostic (BLOOD GLUCOSE TEST) test strip Test blood sugar(s) 2 times daily. Dx: Type 2 DM - Controlled E11.9 Insulin: Yes chlorthalidone (HYGROTON) 25 mg tablet Take 1 tablet by mouth once daily. nystatin (MYCOSTATIN) cream Apply 1 application to affected area two times a day. On left foot triamcinolone acetonide (KENALOG) 0.1 % ointment Apply to affected area twice daily. X 2 weeks; then take a break X 1 week. If still present, then restart X 2 more weeks. blood sugar diagnostic (BLOOD GLUCOSE TEST) test strip Test blood sugar(s) 2 times daily. Dx: Type 2 DM - Uncontrolled E11.65 Insulin: Yes hydrOXYzine HCl (ATARAX) 25 mg tablet Take 1 tablet by mouth every 6 hours as needed for anxiety. Cholecalciferol, Vitamin D3, (VITAMIN D-3) 50 mcg (2,000 unit) cap Take 1 capsule by mouth once daily. CPAP/BIPAP/OTHER autoCPAP 5-12 cmH2O DME [employer] insulin glargine 100 unit/mL (3 mL) Inject 32 Units subcutaneously every morning. sertraline (ZOLOFT) 50 mg tablet Take 1 tablet by mouth once daily. COMPOUNDED PRESCRIPTION Diabetic shoes PHYSICAL EXAMINATION: Vital Signs: BP 133/75 Pulse 68 Resp 18 Wt 78.2 kg (172 lb 6.4 oz) SpO2 96% BMI 33.67 kg/m PHYSICAL EXAM: General appearance: pleasant, NAD Mental status: alert and oriented, able to provide own history Constitutional: obese Skin: red irritation around nares IMPRESSION: Himanshu on cpap (primary encounter diagnosis) Arcenio Rand is a 59 year old female with PMH of severe HIMANSHU on PAP therapy, having skin irritation from her hybrid FFM which is limiting her ability to use PAP all night, developmental delay, HTN, HLD, insomnia, DM2, hypothyroidism. She is accompanied by a caregiver from the assisted. She has lost weight, not needing as much pressure based on review of download --Patient is compliant with PAP therapy and reports subjective benefits from treatment --We reviewed PAP compliance report; AHI is normalized PLAN: - Continue Auto CPAP, I changed her pressure from 7-15 to 5-12 cmH2O - Order to [employer] for AirTouch F20 (memory foam) mask due to skin irritation from silicone hybrid FFM - Remember to clean your mask and equipment regularly, as directed. - You should be eligible for new supplies approximately every 3-6 months, depending on your insurance coverage. Contact your Durable Medical Equipment (DME) company for new supplies as needed. - Follow up in at least 12 months Chyna Pérez APRN.ZIGGY documented in this encounterA[facility]25 NoteHNO ID: [id number] Author: CHYNA PÉREZ APRN.ZIGGY Service: ? Author Type: Nurse Practitioner Type: Progress Notes Filed: 11/29/2024 16:15 Note Text: [facility] Follow up/ Established patient visit Date of last visit : 06/06/2024 The following Impression/Plan was copied and pasted from the patient's last [facility] visit on 06/06/24: IMPRESSION: Himanshu on cpap (primary encounter diagnosis) Arcenio Rand is a 59 year old female with PMH of severe HIMANSHU. --Patient is compliant with PAP therapy and reports subjective benefits from treatment --We reviewed PAP compliance report; AHI is normalized PLAN: - Continue Auto CPAP at 7-15 cmH2O. I changed the pressure setting from 10-20. - Remember to clean your mask and equipment regularly, as directed. - You should be eligible for new supplies approximately every 3-6 months, depending on your insurance coverage. Contact your Durable Medical Equipment (DME) company for new supplies as needed. - Follow up in 12 months with [facility] Chyna Pérez APRN.METAL PICKLING EQUIPMENT OPERATOR Here for follow up for severe HIMANSHU, presents today because of mask issue Dislikes her mask--has a hybrid FFM, causes skin irritation so she doesn't tolerate it the full 4 hrs Tends to have sensitive skin Uses all water in the chamber each night, can run out before morning Finding it harder to wake up in the morning SLEEP APNEA Sleep apnea type : HIMANSHU, Most Recent Apnea-Hypopnea Index (AHI): 41 Treatment : PAP therapy DME: [employer] PAP History: Current PAP settin-15 cm H2O. Difficulties with AutoPAP: Yes: see above Reviewed objective PAP compliance data: Mask type: hybrid full face mask Mask issues: skin irritation There is a perceived benefit by the patient: less sleepy during day SLEEP HYGIENE QUESTIONS: Bedtime : 8-9 pm Wake up Time : 6 am Time it takes to fall sleep : 1 hr Number of times patient wakes up per night : 2-3 Reason (s) why patient wakes up during the night : urination Estimated total sleep time ( in a 24 hour period of time) : 7 Naps : daily lately PATIENT-ENTERED QUESTIONNAIRE SLEEP SCORES ALLERGIES Allergen Reactions Amoxicillin Other: See Comments Bleach (Sodium Hypo* Hives Penicillins Other: See Comments Sulfa (Sulfonamide * Rash AND dry heaves. CURRENT MEDICATIONS: celecoxib (CELEBREX) 200 mg capsule Take 1 capsule by mouth once daily. levothyroxine (SYNTHROID) 50 mcg tablet Take 1 tablet by mouth once daily. Take on empty stomach. For Thyroid. aspirin, enteric coated (ASPIRIN, ENTERIC COATED) 81 mg EC tablet Take 1 tablet by mouth once daily. (self-started) cyanocobalamin (VITAMIN B-12) 1,000 mcg tab Take 1 tablet by mouth once daily. multivitamin-ferrous fumarate-folic acid (CENTRUM) Take 1 tablet by mouth once daily. DULoxetine (CYMBALTA) 60 mg capsule Take 1 capsule by mouth once daily. atenolol (TENORMIN) 100 mg tablet Take 1 tablet by mouth once daily. atorvastatin (LIPITOR) 20 mg tablet Take 1 tablet by mouth daily at bedtime. For cholesterol. empagliflozin (JARDIANCE) 25 mg tablet Take 1 tablet by mouth once daily. estradiol (ESTRACE) 1 mg tablet Take 1 tablet by mouth once daily. metFORMIN ER (GLUCOPHAGE XR) 500 mg 24 hr tablet Take 2 tablet by mouth twice daily with food. pioglitazone (ACTOS) 30 mg tablet Take 1 tablet by mouth once daily. SITagliptin phosphate (JANUVIA) 100 mg tablet Take 1 tablet by mouth once daily. lisinopril (ZESTRIL) 40 mg tablet Take 1 tablet by mouth once daily. Insulin [place], Disposable, (BD ULTRA-FINE ROSALIE PEN NEEDLE) 32 gauge x Use to inject insulin once daily as directed omeprazole (PRILOSEC) 20 mg capsule Take 2 capsules by mouth once daily. Lancets One Touch Test blood sugar(s) 2 times daily. Dx: Type 2 DM - Controlled E11.9 Insulin: Yes blood sugar diagnostic (BLOOD GLUCOSE TEST) test strip Test blood sugar(s) 2 times daily. Dx: Type 2 DM - Controlled E11.9 Insulin: Yes chlorthalidone (HYGROTON) 25 mg tablet Take 1 tablet by mouth once daily. nystatin (MYCOSTATIN) cream Apply 1 application to affected area two times a day. On left foot triamcinolone acetonide (KENALOG) 0.1 % ointment Apply to affected area twice daily. X 2 weeks; then take a break X 1 week. If still present, then restart X 2 more weeks. blood sugar diagnostic (BLOOD GLUCOSE TEST) test strip Test blood sugar(s) 2 times daily. Dx: Type 2 DM - Uncontrolled E11.65 Insulin: Yes hydrOXYzine HCl (ATARAX) 25 mg tablet Take 1 tablet by mouth every 6 hours as needed for anxiety. Cholecalciferol, Vitamin D3, (VITAMIN D-3) 50 mcg (2,000 unit) cap Take 1 capsule by mouth once daily. CPAP/BIPAP/OTHER autoCPAP 5-12 cmH2O DME [employer] insulin glargine 100 unit/mL (3 mL) Inject 32 Units subcutaneously every morning. sertraline (ZOLOFT) 50 mg tablet Take 1 (more content not included)...[facility]01-28-2025 Telephone encounter Note* Telephone Encounter - Jenny Viveros MA - 11/22/2024 8:56 AM EST Patient given results and verbalized understanding of instructions given. Jenny Viveros MA [facility]01-28-2025 Miscellaneous Notes* Telephone Encounter - Jenny Viveros MA - 11/22/2024 8:56 AM EST Patient given results and verbalized understanding of instructions given. Jenny Viveros MA * Telephone Encounter - Demetra Bautista APRN.CNP - 11/22/2024 8:24 AM EST Please advise patient: You have tested positive for influenza A. Tamiflu would not be helpful at this stage of the illness. Recommend supportive therapy at home. - Drink PLENTY of fluids (Gatorade/Pedialyte, tea) and get PLENTY of rest - Vaporizers, humidifiers, hot showers, and warm fluids help open respiratory and sinus passages (helps with cough and congestion) - Saline nose spray - Tylenol or ibuprofen as needed for fever and/or discomfort - Cover cough and wash hands frequently to prevent the spread of germs. Influenza can be spread through contact with respiratory secretions (through sneezing, coughing, talking, touching) or contaminated objects. You can be contagious from before your symptoms began and for several days after. - Stay home until you are fever free for 24 hours. Demetra Bautista APRN.ZIGGY documented in this encounterA[facility]01-28-[facility] Telephone encounter Note * Telephone Encounter - Demetra Bautista APRN.METAL PICKLING EQUIPMENT OPERATOR - 11/22/2024 8:24 AM EST Please advise patient: You have tested positive for influenza A. Tamiflu would not be helpful at this stage of the illness. Recommend supportive therapy at home. - Drink PLENTY of fluids (Gatorade/Pedialyte, tea) and get PLENTY of rest - Vaporizers, humidifiers, hot showers, and warm fluids help open respiratory and sinus passages (helps with cough and congestion) - Saline nose spray - Tylenol or ibuprofen as needed for fever and/or discomfort - Cover cough and wash hands frequently to prevent the spread of germs. Influenza can be spread through contact with respiratory secretions (through sneezing, coughing, talking, touching) or contaminated objects. You can be contagious from before your symptoms began and for several days after. - Stay home until you are fever free for 24 hours. Demetra Bautista APRN.METAL PICKLING EQUIPMENT OPERATOR [facility] Work Phone: [phone] 292-383401-27-2025 NoteHNO ID: [id number] Author: GRZEGORZ ORTIZ MD Service: ? Author Type: Physician Type: Progress Notes Filed: 11/21/2024 16:12 Note Text: Patient presents with: Cough: Cough and dizzy x 4 days HPI: Feeling sick for 4-5 days. Positive symptoms: cough, Earache, Nasal Congestion, Rhinorrhea, resolved Fever, Body Aches, Malaise, Fatigue, Headache, Negative symptoms: Chest pain, Vomiting, Diarrhea, OTC: Tylenol PAST MEDICAL HISTORY Diagnosis Date Arthralgia Chronic back pain Depression Developmental delay Diabetic neuropathy (HCC) feet DM (diabetes mellitus) (HCC) Hypertension Hypothyroid Mental disorder Snoring MEDICATIONS: Current Outpatient Medications Medication Sig celecoxib (CELEBREX) 200 mg capsule Take 1 capsule by mouth once daily. levothyroxine (SYNTHROID) 50 mcg tablet Take 1 tablet by mouth once daily. Take on empty stomach. For Thyroid. aspirin, enteric coated (ASPIRIN, ENTERIC COATED) 81 mg EC tablet Take 1 tablet by mouth once daily. (self-started) cyanocobalamin (VITAMIN B-12) 1,000 mcg tab Take 1 tablet by mouth once daily. multivitamin-ferrous fumarate-folic acid (CENTRUM) Take 1 tablet by mouth once daily. DULoxetine (CYMBALTA) 60 mg capsule Take 1 capsule by mouth once daily. atenolol (TENORMIN) 100 mg tablet Take 1 tablet by mouth once daily. atorvastatin (LIPITOR) 20 mg tablet Take 1 tablet by mouth daily at bedtime. For cholesterol. empagliflozin (JARDIANCE) 25 mg tablet Take 1 tablet by mouth once daily. estradiol (ESTRACE) 1 mg tablet Take 1 tablet by mouth once daily. metFORMIN ER (GLUCOPHAGE XR) 500 mg 24 hr tablet Take 2 tablet by mouth twice daily with food. pioglitazone (ACTOS) 30 mg tablet Take 1 tablet by mouth once daily. SITagliptin phosphate (JANUVIA) 100 mg tablet Take 1 tablet by mouth once daily. lisinopril (ZESTRIL) 40 mg tablet Take 1 tablet by mouth once daily. Insulin [place], Disposable, (BD ULTRA-FINE ROSALIE PEN NEEDLE) 32 gauge x Use to inject insulin once daily as directed CPAP/BIPAP/OTHER APAP 7-15 cmH2O DME [facility] omeprazole (PRILOSEC) 20 mg capsule Take 2 capsules by mouth once daily. Lancets One Touch Test blood sugar(s) 2 times daily. Dx: Type 2 DM - Controlled E11.9 Insulin: Yes blood sugar diagnostic (BLOOD GLUCOSE TEST) test strip Test blood sugar(s) 2 times daily. Dx: Type 2 DM - Controlled E11.9 Insulin: Yes chlorthalidone (HYGROTON) 25 mg tablet Take 1 tablet by mouth once daily. nystatin (MYCOSTATIN) cream Apply 1 application to affected area two times a day. On left foot triamcinolone acetonide (KENALOG) 0.1 % ointment Apply to affected area twice daily. X 2 weeks; then take a break X 1 week. If still present, then restart X 2 more weeks. blood sugar diagnostic (BLOOD GLUCOSE TEST) test strip Test blood sugar(s) 2 times daily. Dx: Type 2 DM - Uncontrolled E11.65 Insulin: Yes hydrOXYzine HCl (ATARAX) 25 mg tablet Take 1 tablet by mouth every 6 hours as needed for anxiety. Cholecalciferol, Vitamin D3, (VITAMIN D-3) 50 mcg (2,000 unit) cap Take 1 capsule by mouth once daily. COMPOUNDED PRESCRIPTION Diabetic shoes insulin glargine 100 unit/mL (3 mL) Inject 32 Units subcutaneously every morning. sertraline (ZOLOFT) 50 mg tablet Take 1 tablet by mouth once daily. No current facility-administered medications for this visit. ALLERGIES: ALLERGIES Allergen Reactions Amoxicillin Other: See Comments Bleach (Sodium Hypo* Hives Penicillins Other: See Comments Sulfa (Sulfonamide * Rash AND dry heaves. VITALS: BP 110/78 Pulse 78 Temp 36.6 ?C (97.9 ?F) (Tympanic) Resp 18 Wt 79 kg (174 lb 2.6 oz) SpO2 100% BMI 34.01 kg/m? PHYSICAL EXAM: GEN: mildly ill appearing. Accompanied by caregiver HEENT: PERRL, EOMI, conjunctiva clear Ears: canals clear. TMs without erythema, bulge, or effusion Sinuses: non-tender frontal sinus, non-tender maxillary sinuses Throat: moist mucous membranes, mild erythema, no exudate Neck: supple, no thyromegaly, no lymphadenopathy HEART: regular rate, regular rhythm, no murmurs LUNGS: clear to auscultation, no wheezes or crackles, no increased WOB ASSESSMENT/PLAN: 1. Viral URI - ICD9: 465.9, ICD10: J06.9 - suspect viral URI, differential includes influenza and COVID-19. - Discussed supportive care treatment with home isolation (fever free for 24 hours and improving symptoms), rest, cold medicine, and analgesia. - Red flags to seek further treatment include chest pain, shortness of breath, and lethargy; in the ER if severe. - COVID AND INFLUENZA A/B AND RSV PCR, ROUTINE Grzegorz Ortiz, [facility]01-27-2025 History of Present illness Narrative* Grzegorz Ortiz MD - 11/21/2024 3:59 PM EST Patient presents with: Cough: Cough and dizzy x 4 days HPI: Feeling sick for 4-5 days. Positive symptoms: cough, Earache, Nasal Congestion, Rhinorrhea, resolved Fever, Body Aches, Malaise, Fatigue, Headache, Negative symptoms: Chest pain, Vomiting, Diarrhea, OTC: Tylenol PAST MEDICAL HISTORY Diagnosis Date Arthralgia Chronic back pain Depression Developmental delay Diabetic neuropathy (HCC) feet DM (diabetes mellitus) (HCC) Hypertension Hypothyroid Mental disorder Snoring MEDICATIONS: Current Outpatient Medications Medication Sig celecoxib (CELEBREX) 200 mg capsule Take 1 capsule by mouth once daily. levothyroxine (SYNTHROID) 50 mcg tablet Take 1 tablet by mouth once daily. Take on empty stomach. For Thyroid. aspirin, enteric coated (ASPIRIN, ENTERIC COATED) 81 mg EC tablet Take 1 tablet by mouth once daily. (self-started) cyanocobalamin (VITAMIN B-12) 1,000 mcg tab Take 1 tablet by mouth once daily. multivitamin-ferrous fumarate-folic acid (CENTRUM) Take 1 tablet by mouth once daily. DULoxetine (CYMBALTA) 60 mg capsule Take 1 capsule by mouth once daily. atenolol (TENORMIN) 100 mg tablet Take 1 tablet by mouth once daily. atorvastatin (LIPITOR) 20 mg tablet Take 1 tablet by mouth daily at bedtime. For cholesterol. empagliflozin (JARDIANCE) 25 mg tablet Take 1 tablet by mouth once daily. estradiol (ESTRACE) 1 mg tablet Take 1 tablet by mouth once daily. metFORMIN ER (GLUCOPHAGE XR) 500 mg 24 hr tablet Take 2 tablet by mouth twice daily with food. pioglitazone (ACTOS) 30 mg tablet Take 1 tablet by mouth once daily. SITagliptin phosphate (JANUVIA) 100 mg tablet Take 1 tablet by mouth once daily. lisinopril (ZESTRIL) 40 mg tablet Take 1 tablet by mouth once daily. Insulin [place], Disposable, (BD ULTRA-FINE ROSALIE PEN NEEDLE) 32 gauge x 5 Use to inject insulinonce daily as directed CPAP/BIPAP/OTHER APAP 7-15 cmH2O DME DASCO omeprazole (PRILOSEC) 20 mg capsule Take 2 capsules by mouth once daily. Lancets One Touch Test blood sugar(s) 2 times daily. Dx: Type 2 DM - Controlled E11.9 Insulin: Yes blood sugar diagnostic (BLOOD GLUCOSE TEST) test strip Test blood sugar(s) 2 times daily. Dx: Type 2 DM - Controlled E11.9 Insulin: Yes chlorthalidone (HYGROTON) 25 mg tablet Take 1 tablet by mouth once daily. nystatin (MYCOSTATIN) cream Apply 1 application to affected area two times a day. On left foot triamcinolone acetonide (KENALOG) 0.1 % ointment Apply to affected area twice daily. X 2 weeks; then take a break X 1 week. If still present, then restart X 2 more weeks. blood sugar diagnostic (BLOOD GLUCOSE TEST) test strip Test blood sugar(s) 2 times daily. Dx: Type 2 DM - Uncontrolled E11.65 Insulin: Yes hydrOXYzine HCl (ATARAX) 25 mg tablet Take 1 tablet by mouth every 6 hours as needed for anxiety. Cholecalciferol, Vitamin D3, (VITAMIN D-3) 50 mcg (2,000 unit) cap Take 1 capsule by mouth once daily. COMPOUNDED PRESCRIPTION Diabetic shoes insulin glargine 100 unit/mL (3 mL) Inject 32 Units subcutaneously every morning. sertraline (ZOLOFT) 50 mg tablet Take 1 tablet by mouth once daily. No current facility-administered medications for this visit. ALLERGIES: ALLERGIES Allergen Reactions Amoxicillin Other: See Comments Bleach (Sodium Hypo* Hives Penicillins Other: See Comments Sulfa (Sulfonamide * Rash & dry heaves. VITALS: BP 110/78 Pulse 78 Temp 36.6 C (97.9 F) (Tympanic) Resp 18 Wt 79 kg (174 lb 2.6 oz) SpO2 100% BMI 34.01 kg/m PHYSICAL EXAM: GEN: mildly ill appearing. Accompanied by caregiver HEENT: PERRL, EOMI, conjunctiva clear Ears: canals clear. TMs without erythema, bulge, or effusion Sinuses: non-tender frontal sinus, non-tender maxillary sinuses Throat: moist mucous membranes, mild erythema, no exudate Neck: supple, no thyromegaly, no lymphadenopathy HEART: regular rate, regular rhythm, no murmurs LUNGS: clear to auscultation, no wheezes or crackles, no increased WOB ASSESSMENT/PLAN: 1. Viral URI - ICD9: 465.9, ICD10: J06.9 - suspect viral URI, differential includes influenza and COVID-19. - Discussed supportive care treatment with home isolation (fever free for 24 hours and improving symptoms), rest, cold medicine, and analgesia. - Red flags to seek further treatment include chest pain, shortness of breath, and lethargy; in theER if severe. - COVID & INFLUENZA A/B & RSV PCR, ROUTINE Grzegorz Ortiz MD documented in this encounterA[facility] Instructions* Patient Instructions* Gabbie Harvey APRN.METAL PICKLING EQUIPMENT OPERATOR - 11/03/2024 4:01 PM EST OTITIS MEDIA GENERAL INFORMATION: Otitis media is an infection of the middle ear. The middle ear sits behind the eardrum. This infection may be caused by a virus or bacteria and often follows a cold. Children often have repeat ear infections. Otitis media is not contagious. INSTRUCTIONS: 1. An antibiotic has been prescribed. It should be taken exactly as prescribed. Do not stop the medicine even if the symptoms go away. 2. [id number] pain medication may be taken or other pain medication as prescribed by the doctor. 3. Nothing should be placed in the ear unless instructed by your doctor. 4. The patient may return to school/daycare or work when the temperature is normal (98.6 F or 37 C). 5. The patient should not swim while the ear is infected. CONTACT YOUR DOCTOR IF YOU OR YOUR CHILD: 1. Does not feel better within 36 hours. 2. Develops a temperature over 102E F (39E C). 3. Starts vomiting or has diarrhea. 4. Develops drainage from the affected ear. 5. Has any new problem that may be related to the medicine prescribed. RETURN TO THE ED IF: 1. You or your child has a severe headache or pain around the ear. 2. You or your child notice swelling around the ear. 3. You or your child has a seizure (convulsion), twitching of the facial muscles, or passes out. 4. You or your child is dizzy, has a stiff neck, or cannot walk or talk normally. 5. Your child becomes more irritable or listless (not interested in his or her surroundings, does not get soothed by you holding him or her).CONJUNCTIVITIS GENERAL INFORMATION: Conjunctivitis is also known as pink eye. It is an irritation of the underside of the eyelid and the white part of the eye. Conjunctivitis can be caused by infection, chemical irritation, or allergy.If infectious, it is very contagious. INSTRUCTIONS: The doctor has prescribed antibiotic drops or ointment. Use them as prescribed. Do not touch the dropper to the eye. Throw out the medication after completing treatment. If the doctor only prescribedthe medication to be placed in one eye, and the other eye starts to bother you with the same symptoms, you may treat it in the same fashion. To ease discomfort, apply a warm or cool clean washcloth to your eye several times a day for 10 to 20 minutes. Gently wipe away discharge from the eyes with tissues. Wash your hands often with soap and use paper towels to dry them. Do not share towels, washcloths, or pillows. This could spread infection. Do not use eye make-up until the infection has resolved. Keep contact lenses out of eyes until the irritation is gone. Discard any eye make-up which you may have contaminated before the infection wasdiagnosed, and any eye make-up older than one year. Children should not return to school or daycare until the eye is no longer pink. Do not drive or operate machinery if your vision is blurred. Wear sunglasses if your eyes are sensitive to the light. CONTACT YOUR DOCTOR IF YOU OR YOUR CHILD NOTICE: *The eye is still pink 3 days after starting treatment with medicine. *Pain in the eye increases. *The redness is spreading. *Vision becomes blurred. *You have a temperature over 100.5 F (38 C). documented in this encounterA[facility]01-09-[facility]25 NoteHNO ID: [id number] Author: GABBIE HARVEY APRN.ZIGGY Service: ? Author Type: Nurse Practitioner Type: Progress Notes Filed: 11/03/2024 16:36 Note Text: This note was created using [employer]. Subjective Arcenio Rand is a 59 year old female. 59 year old female with PMH insomnia, DM, HTN, hyperlipidemia, thyroid, depression, and developmental delay presents for eye complaints. Acute onset yesterday Bilateral eyes Right worse +drainage +watering +redness +eye crusting +ear popping Denies cough Denies congestion Carlos Eduardo SOB or dyspnea Denies trauma or injury Denies feelings of FB Denies loss of vision ROS and HPI somewhat limited related to patient PMH Information obtained in conjunction with caregiver at bedside. She was sent home from workshop today The history is provided by the patient and a caregiver. Eye Problem This is a new problem. The current episode started yesterday. The problem occurs constantly. The problem has been unchanged. Pertinent negatives include no abdominal pain, anorexia, arthralgias, change in bowel habit, chest pain, chills, congestion, coughing, diaphoresis, fatigue, fever, headaches, joint swelling, myalgias, nausea, neck pain, numbness, rash, sore throat, swollen glands, urinary symptoms, vertigo, visual change, vomiting or weakness. Nothing aggravates the symptoms. She has tried nothing for the symptoms. The treatment provided no relief. PAST MEDICAL HISTORY Diagnosis Date Arthralgia Chronic back pain Depression Developmental delay Diabetic neuropathy (HCC) feet DM (diabetes mellitus) (HCC) Hypertension Hypothyroid Mental disorder Snoring PAST SURGICAL HISTORY Procedure Laterality Date COLONOSCOPY FLX DX W/COLLJ SPEC WHEN PFRMD 09/23/2018 Colonoscopy HYSTERECTOMY N/A XCAPSL CTRC RMVL INSJ IO LENS PROSTH CPLX WO ECP ALLERGIES Amoxicillin, Bleach (Sodium Hypochlorite), Penicillins, and Sulfa (Sulfonamide Antibiotics) MEDICATIONS celecoxib (CELEBREX) 200 mg capsule Take 1 capsule by mouth once daily. levothyroxine (SYNTHROID) 50 mcg tablet Take 1 tablet by mouth once daily. Take on empty stomach. For Thyroid. aspirin, enteric coated (ASPIRIN, ENTERIC COATED) 81 mg EC tablet Take 1 tablet by mouth once daily. (self-started) cyanocobalamin (VITAMIN B-12) 1,000 mcg tab Take 1 tablet by mouth once daily. DULoxetine (CYMBALTA) 60 mg capsule Take 1 capsule by mouth once daily. atenolol (TENORMIN) 100 mg tablet Take 1 tablet by mouth once daily. atorvastatin (LIPITOR) 20 mg tablet Take 1 tablet by mouth daily at bedtime. For cholesterol. empagliflozin (JARDIANCE) 25 mg tablet Take 1 tablet by mouth once daily. estradiol (ESTRACE) 1 mg tablet Take 1 tablet by mouth once daily. metFORMIN ER (GLUCOPHAGE XR) 500 mg 24 hr tablet Take 2 tablet by mouth twice daily with food. pioglitazone (ACTOS) 30 mg tablet Take 1 tablet by mouth once daily. SITagliptin phosphate (JANUVIA) 100 mg tablet Take 1 tablet by mouth once daily. lisinopril (ZESTRIL) 40 mg tablet Take 1 tablet by mouth once daily. Insulin [place], Disposable, (BD ULTRA-FINE ROSALIE PEN NEEDLE) 32 gauge x Use to inject insulin once daily as directed CPAP/BIPAP/OTHER APAP 7-15 cmH2O DME DASCO omeprazole (PRILOSEC) 20 mg capsule Take 2 capsules by mouth once daily. Lancets One Touch Test blood sugar(s) 2 times daily. Dx: Type 2 DM - Controlled E11.9 Insulin: Yes insulin glargine 100 unit/mL (3 mL) Inject 32 Units subcutaneously every morning. blood sugar diagnostic (BLOOD GLUCOSE TEST) test strip Test blood sugar(s) 2 times daily. Dx: Type 2 DM - Controlled E11.9 Insulin: Yes chlorthalidone (HYGROTON) 25 mg tablet Take 1 tablet by mouth once daily. triamcinolone acetonide (KENALOG) 0.1 % ointment Apply to affected area twice daily. X 2 weeks; then take a break X 1 week. If still present, then restart X 2 more weeks. blood sugar diagnostic (BLOOD GLUCOSE TEST) test strip Test blood sugar(s) 2 times daily. Dx: Type 2 DM - Uncontrolled E11.65 Insulin: Yes hydrOXYzine HCl (ATARAX) 25 mg tablet Take 1 tablet by mouth every 6 hours as needed for anxiety. trimethoprim-polymyxin (POLYTRIM) 10,000 unit- 1 mg/mL ophthalmic solution Use 1 Drop in both eyes every 4 hours for 7 days. azithromycin (ZITHROMAX Z-NEL) 250 mg tablet Take 2 tablets day one, then, 1 tablet daily until gone. multivitamin-ferrous fumarate-folic acid (CENTRUM) Take 1 tablet by mouth once daily. nystatin (MYCOSTATIN) cream Apply 1 application to affected area two times a day. On left foot (Patient not taking: Reported on 11/03/2024) sertraline (ZOLOFT) 50 mg tablet Take 1 tablet by mouth once daily. Cholecalciferol, Vitamin D3, (VITAMIN D-3) 50 mcg (2,000 unit) cap Take 1 capsule by mouth once daily. (Patient not taking: Reported on 11/03/2024) COMPOUNDED PRESCRIPTION Diabetic shoes (Patient not taking: Reported on 11/03/2024) FAMILY HISTORY Problem Relation Age (more content not included)...[facility] 11-03-2024 History of Present illness Narrative* Gabbie Harvey, SUE.METAL PICKLING EQUIPMENT OPERATOR - 11/03/2024 3:57 PM EST This note was created using NoteWriter. Subjective Arcenio Rand is a 59 year old female. 59 year old female with PMH insomnia, DM, HTN, hyperlipidemia, thyroid, depression, and developmental delay presents for eye complaints. Acute onset yesterday Bilateral eyes Right worse +drainage +watering +redness +eye crusting +ear popping Denies cough Denies congestion Carlos Eduardo SOB or dyspnea Denies trauma or injury Denies feelings of FB Denies loss of vision ROS and HPI somewhat limited related to patient PMH Information obtained in conjunction with caregiver at bedside. She was sent home from workshop today The history is provided by the patient and a caregiver. Eye Problem This is a new problem. The current episode started yesterday. The problem occurs constantly. The problem has been unchanged. Pertinent negatives include no abdominal pain, anorexia, arthralgias, change in bowel habit, chest pain, chills, congestion, coughing, diaphoresis, fatigue, fever, headaches,joint swelling, myalgias, nausea, neck pain, numbness, rash, sore throat, swollen glands, urinary symptoms, vertigo, visual change, vomiting or weakness. Nothing aggravates the symptoms. She has tried nothing for the symptoms. The treatment provided no relief. PAST MEDICAL HISTORY Diagnosis Date Arthralgia Chronic back pain Depression Developmental delay Diabetic neuropathy (HCC) feet DM (diabetes mellitus) (HCC) Hypertension Hypothyroid Mental disorder Snoring PAST SURGICAL HISTORY Procedure Laterality Date COLONOSCOPY FLX DX W/COLLJ SPEC WHEN PFRMD 09/23/2018 Colonoscopy HYSTERECTOMY N/A XCAPSL CTRC RMVL INSJ IO LENS PROSTH CPLX WO ECP ALLERGIES Amoxicillin, Bleach (Sodium Hypochlorite), Penicillins, and Sulfa (Sulfonamide Antibiotics) MEDICATIONS celecoxib (CELEBREX) 200 mg capsule Take 1 capsule by mouth once daily. levothyroxine (SYNTHROID) 50 mcg tablet Take 1 tablet by mouth once daily. Take on empty stomach. For Thyroid. aspirin, enteric coated (ASPIRIN, ENTERIC COATED) 81 mg EC tablet Take 1 tablet by mouth once daily. (self-started) cyanocobalamin (VITAMIN B-12) 1,000 mcg tab Take 1 tablet by mouth once daily. DULoxetine (CYMBALTA) 60 mg capsule Take 1 capsule by mouth once daily. atenolol (TENORMIN) 100 mg tablet Take 1 tablet by mouth once daily. atorvastatin (LIPITOR) 20 mg tablet Take 1 tablet by mouth daily at bedtime. For cholesterol. empagliflozin (JARDIANCE) 25 mg tablet Take 1 tablet by mouth once daily. estradiol (ESTRACE) 1 mg tablet Take 1 tablet by mouth once daily. metFORMIN ER (GLUCOPHAGE XR) 500 mg 24 hr tablet Take 2 tablet by mouth twice daily with food. pioglitazone (ACTOS) 30 mg tablet Take 1 tablet by mouth once daily. SITagliptin phosphate (JANUVIA) 100 mg tablet Take 1 tablet by mouth once daily. lisinopril (ZESTRIL) 40 mg tablet Take 1 tablet by mouth once daily. Insulin [place], Disposable, (BD ULTRA-FINE ROSALIE PEN NEEDLE) 32 gauge x Use to inject insulinonce daily as directed CPAP/BIPAP/OTHER APAP 7-15 cmH2O DME DASCO omeprazole (PRILOSEC) 20 mg capsule Take 2 capsules by mouth once daily. Lancets One Touch Test blood sugar(s) 2 times daily. Dx: Type 2 DM - Controlled E11.9 Insulin: Yes insulin glargine 100 unit/mL (3 mL) Inject 32 Units subcutaneously every morning. blood sugar diagnostic (BLOOD GLUCOSE TEST) test strip Test blood sugar(s) 2 times daily. Dx: Type 2 DM - Controlled E11.9 Insulin: Yes chlorthalidone (HYGROTON) 25 mg tablet Take 1 tablet by mouth once daily. triamcinolone acetonide (KENALOG) 0.1 % ointment Apply to affected area twice daily. X 2 weeks; then take a break X 1 week. If still present, then restart X 2 more weeks. blood sugar diagnostic (BLOOD GLUCOSE TEST) test strip Test blood sugar(s) 2 times daily. Dx: Type 2 DM - Uncontrolled E11.65 Insulin: Yes hydrOXYzine HCl (ATARAX) 25 mg tablet Take 1 tablet by mouth every 6 hours as needed for anxiety. trimethoprim-polymyxin (POLYTRIM) 10,000 unit- 1 mg/mL ophthalmic solution Use 1 Drop in both eyes every 4 hours for 7 days. azithromycin (ZITHROMAX Z-NEL) 250 mg tablet Take 2 tablets day one, then, 1 tablet daily until gone. multivitamin-ferrous fumarate-folic acid (CENTRUM) Take 1 tablet by mouth once daily. nystatin (MYCOSTATIN) cream Apply 1 application to affected area two times a day. On left foot (Patient not taking: Reported on 11/03/2024) sertraline (ZOLOFT) 50 mg tablet Take 1 tablet by mouth once daily. Cholecalciferol, Vitamin D3, (VITAMIN D-3) 50 mcg (2,000 unit) cap Take 1 capsule by mouth once daily. (Patient not taking: Reported on 11/03/2024) COMPOUNDED PRESCRIPTION Diabetic shoes (Patient not taking: Reported on 11/03/2024) FAMILY HISTORY Problem Relation Age of Onset Arthritis Mother Diabetes Mother Hypertension Mother Hyperlipidemia Mother Social History Tobacco Use Smoking status: Never Smokeless tobacco: Never Vaping Use Vaping status: Never Used Substance Use Topics Alcohol use: No Drug use: No Review of Systems Constitutional: Negative for chills, diaphoresis, fatigue and fever. HENT: Positive for ear pain. Negative for congestion, rhinorrhea, sinus pressure, sinus pain and sore throat. Eyes: Positive for discharge and redness. Respiratory: Negative for apnea, cough and chest tightness. Cardiovascular: Negative for chest pain. Gastrointestinal: Negative for abdominal pain, anorexia, change in bowel habit, nausea and vomiting. Musculoskeletal: Negative for arthralgias, joint swelling, myalgias and neck pain. Skin: Negative for rash. Allergic/Immunologic: Negative for environmental allergies, food allergies and immunocompromised state. Neurological: Negative for vertigo, weakness, numbness and headaches. Hematological: Negative for adenopathy. Does not bruise/bleed easily. Psychiatric/Behavioral: Negative for agitation and behavioral problems. Objective BP 138/84 Pulse 64 Temp 36.1 C (97 F) Resp 18 Wt 80 kg (176 lb 5.9 oz) SpO2 100% BMI 34.44 kg/m Physical Exam Vitals and nursing note reviewed. Constitutional: General: She is not in acute distress. Appearance: Normal appearance. She is normal weight. She is not ill-appearing, toxic-appearing or diaphoretic. HENT: Head: Normocephalic and atraumatic. Right Ear: Ear canal and external ear normal. Left Ear: Ear canal and external ear normal. Nose: Nose normal. No congestion or rhinorrhea. Mouth/Throat: Mouth: Mucous membranes are moist. Pharynx: No oropharyngeal exudate or posterior oropharyngeal erythema. Eyes: General: Lids are normal. Vision grossly intact. Right eye: No discharge. Left eye: No discharge. Extraocular Movements: Extraocular movements intact. Right eye: Normal extraocular motion and no nystagmus. Left eye: Normal extraocular motion and no nystagmus. Conjunctiva/sclera: Right eye: Right conjunctiva is injected. No chemosis. Left eye: Left conjunctiva is not injected. No chemosis. Pupils: Pupils are equal, round, and reactive to light. Pupils are equal. Right eye: Pupil is round, reactive and not sluggish. No corneal abrasion or fluorescein uptake. Tobias exam negative. Left eye: Pupil is round, reactive and not sluggish. No corneal abrasion or fluorescein uptake. Tobias exam negative. Funduscopic exam: Right eye: No hemorrhage or exudate. Red reflex present. Left eye: No hemorrhage or exudate. Red reflex present. Comments: Vision grossly intact OD injected +marginal eyelid debris Cardiovascular: Rate and Rhythm: Normal rate and regular rhythm. Pulses: Normal pulses. Heart sounds: Normal heart sounds. No murmur heard. No friction rub. Pulmonary: Effort: Pulmonary effort is normal. No respiratory distress. Breath sounds: Normal breath sounds. No stridor. No wheezing, rhonchi or rales. Chest: Chest wall: No tenderness. Abdominal: General: Abdomen is flat. There is no distension. Palpations: Abdomen is soft. There is no mass. Tenderness: There is no abdominal tenderness. There is no right CVA tenderness, left CVA tenderness, guarding or rebound. Hernia: No hernia is present. Musculoskeletal: General: No swelling, tenderness, deformity or signs of injury. Normal range of motion. Cervical back: Normal range of motion and neck supple. No rigidity. Right lower leg: No edema. Left lower leg: No edema. Lymphadenopathy: Cervical: No cervical adenopathy. Skin: General: Skin is warm and dry. Capillary Refill: Capillary refill takes less than 2 seconds. Coloration: Skin is not jaundiced or pale. Findings: No bruising, erythema, lesion or rash. Neurological: General: No focal deficit present. Mental Status: She is alert and oriented to person, place, and time. Cranial Nerves: No cranial nerve deficit. Sensory: No sensory deficit. Motor: No weakness. Coordination: Coordination normal. Gait: Gait normal. Psychiatric: Mood and Affect: Mood normal. Behavior: Behavior normal. Thought Content: Thought content normal. Judgment: Judgment normal. Assessment and Plan ASSESSMENT/PLAN: 1. Conjunctivitis of right eye, unspecified conjunctivitis type - ICD9: 372.30, ICD10: H10.9 (primary diagnosis) - see medication orders - course and contagiousness issues discussed, including hand washing. - Instructed to call if high fever, development of periorbital redness or swelling, eye pain, visual changes, concerns or if symptoms persist. 2. Acute otitis media, right - ICD9: 382.9, ICD10: H66.91 - Will begin treatment with as per antibiotic as written, see orders - The patient should also be given OTC cough and cold meds as needed, warm salt water gargles, throat lozenges and/or OTC throat spray as needed, and nasal saline gtts and suction prn for the first 5-7 days of treatment. - Supportive care with plenty of fluids, rest, and analgesia prn. - Follow up in 3-5 days if symptoms persist or worsen. Gabbie Harvey APRN.METAL PICKLING EQUIPMENT OPERATOR documented in this encounterAult[facility]12-12-2024 Telephone encounter Note * Telephone Encounter - Viviana Hummel RN - 10/06/2024 9:55 AM EST The patient has been identified by name and date of : Yes Caregiver verified no other encounters exist for this prescription request: Yes Caregiver confirmed with patient/requestor that no other refills are due, in the near future, with this provider at this time: Yes The last office visit in the department: 06/06/2024 Does the patient have a future office visit with this provider/department: Yes 12/19/2024 Requested Prescriptions Pending Prescriptions Disp Refills celecoxib (CELEBREX) 200 mg capsule 30 capsule 2 Sig: Take 1 capsule by mouth once daily. levothyroxine (SYNTHROID) 50 mcg tablet 30 tablet 5 Sig: Take 1 tablet by mouth once daily. Take on empty stomach. For Thyroid. Viviana Hummel RN October 06, 2024 9:56 AM [facility]12-12-2024 Miscellaneous Notes* Telephone Encounter - Viviana Hummel RN - 10/06/2024 9:55 AM EST The patient has been identified by name and date of : Yes Caregiver verified no other encounters exist for this prescription request: Yes Caregiver confirmed with patient/requestor that no other refills are due, in the near future, with this provider at this time: Yes The last office visit in the department: 06/06/2024 Does the patient have a future office visit with this provider/department: Yes 12/19/2024 Requested Prescriptions Pending Prescriptions Disp Refills celecoxib (CELEBREX) 200 mg capsule 30 capsule 2 Sig: Take 1 capsule by mouth once daily. levothyroxine (SYNTHROID) 50 mcg tablet 30 tablet 5 Sig: Take 1 tablet by mouth once daily. Take on empty stomach. For Thyroid. Viviana Hummel RN October 06, 2024 9:56 AM documented in this encounterAult[facility]11-26-[facility]24 NoteHNO ID: [id number] Author: DEMETRA LEIVA MA Service: ? Author Type: Pinball Machine Repairer Type: Progress Notes Filed: 09/20/2024 14:09 Note Text: POPULATION HEALTH NAVIGATION OUTREACH Action/FYI UPDATED APPOINTMENT NOTE Reason for Outreach Care Gap/HCC or Scheduling Wellness Visits Care Gaps due: Medicare Annual Wellness Visit Breast Cancer Screening Patient Contacted: Unable or unnecessary to reach patient: Patient already scheduled Updated appointment notes Navigation Signature: Demetra Leiva MA September 20, 2024 12:17 [facility]11-26-2024 History of Present illness Narrative* Demetra Leiva MA - 09/20/2024 12:17 PM EST POPULATION HEALTH NAVIGATION OUTREACH Action/FYI UPDATED APPOINTMENT NOTE Reason for Outreach Care Gap/HCC or Scheduling Wellness Visits Care Gaps due: Medicare Annual Wellness Visit Breast Cancer Screening Patient Contacted: Unable or unnecessary to reach patient: Patient already scheduled Updated appointment notes Navigation Signature: Demetra Leiva MA September 20, 2024 12:17 PM documented in this encounterAultman [facility]11-26-2024 NotePatient Outreach (NETNAV) ARCENIO RAND ([id number]) 1965 F Date Time Provider Department 09/20/24 DEMETRA LEIVA During your visit today, we recorded the following information about you: Demetra Leiva MA 09/20/2024 2:09 PM Signed POPULATION HEALTH NAVIGATION OUTREACH Action/FYI UPDATED APPOINTMENT NOTE Reason for Outreach Care Gap/HCC or Scheduling Wellness Visits Care Gaps due: Medicare Annual Wellness Visit Breast Cancer Screening Patient Contacted: Unable or unnecessary to reach patient: Patient already scheduled Updated appointment notes Navigation Signature: Demetra Leiva MA September 20, 2024 12:17 PM Allergies As of Date: 09/20/2024 Noted Allergy Reaction AMOXICILLIN 07/15/2018 14 - Other: See Comments BLEACH (SODIUM HYPOCHLORITE) 04/04/2019 4 - Hives PENICILLINS 07/15/2018 14 - Other: See Comments SULFA (SULFONAMIDE ANTIBIOTICS) 04/12/2019 2 - Rash Comments: AND dry heaves. Date Reviewed: 06/06/2024 Reviewed by: Alex Bui MA - Fully Assessed Reason for Visit: Population Health Navigation Outreach [3910] Cmt: [facility]SA Prescriptions as of 09/20/2024 - aspirin, enteric coated (ASPIRIN, ENTERIC COATED) 81 mg EC tablet Take 1 tablet by mouth once daily. (self-started) - cyanocobalamin (VITAMIN B-12) 1,000 mcg tab Take 1 tablet by mouth once daily. - multivitamin-ferrous fumarate-folic acid (CENTRUM) Take 1 tablet by mouth once daily. - celecoxib (CELEBREX) 200 mg capsule Take 1 capsule by mouth once daily. - DULoxetine (CYMBALTA) 60 mg capsule Take 1 capsule by mouth once daily. - atenolol (TENORMIN) 100 mg tablet Take 1 tablet by mouth once daily. - atorvastatin (LIPITOR) 20 mg tablet Take 1 tablet by mouth daily at bedtime. For cholesterol. - empagliflozin (JARDIANCE) 25 mg tablet Take 1 tablet by mouth once daily. - estradiol (ESTRACE) 1 mg tablet Take 1 tablet by mouth once daily. - metFORMIN ER (GLUCOPHAGE XR) 500 mg 24 hr tablet Take 2 tablet by mouth twice daily with food. - pioglitazone (ACTOS) 30 mg tablet Take 1 tablet by mouth once daily. - SITagliptin phosphate (JANUVIA) 100 mg tablet Take 1 tablet by mouth once daily. - lisinopril (ZESTRIL) 40 mg tablet Take 1 tablet by mouth once daily. - Insulin [place], Disposable, (BD ULTRA-FINE ROSALIE PEN NEEDLE) 32 gauge x 5/32 Use to inject insulin once daily as directed - CPAP/BIPAP/OTHER APAP 7-15 cmH2O DME DASCO - omeprazole (PRILOSEC) 20 mg capsule Take 2 capsules by mouth once daily. - Lancets One Touch Test blood sugar(s) 2 times daily. Dx: Type 2 DM - Controlled E11.9 Insulin: Yes - insulin glargine 100 unit/mL (3 mL) Inject 32 Units subcutaneously every morning. - blood sugar diagnostic (BLOOD GLUCOSE TEST) test strip Test blood sugar(s) 2 times daily. Dx: Type 2 DM - Controlled E11.9 Insulin: Yes - levothyroxine (SYNTHROID) 50 mcg tablet Take 1 tablet by mouth once daily. Take on empty stomach. For Thyroid. - chlorthalidone (HYGROTON) 25 mg tablet Take 1 tablet by mouth once daily. - nystatin (MYCOSTATIN) cream Apply 1 application to affected area two times a day. On left foot - triamcinolone acetonide (KENALOG) 0.1 % ointment Apply to affected area twice daily. X 2 weeks; then take a break X 1 week. If still present, then restart X 2 more weeks. - sertraline (ZOLOFT) 50 mg tablet Take 1 tablet by mouth once daily. - blood sugar diagnostic (BLOOD GLUCOSE TEST) test strip Test blood sugar(s) 2 times daily. Dx: Type 2 DM - Uncontrolled E11.65 Insulin: Yes - hydrOXYzine HCl (ATARAX) 25 mg tablet Take 1 tablet by mouth every 6 hours as needed for anxiety. - Cholecalciferol, Vitamin D3, (VITAMIN D-3) 50 mcg (2,000 unit) cap Take 1 capsule by mouth once daily. - COMPOUNDED PRESCRIPTION Diabetic shoes Problem List As Of Date 09/20/2024 Noted Resolved Arthralgia [M25.50] 07/15/2018 11/10/2022 Hypothyroidism [E03.9] 07/15/2018 Insomnia [G47.00] 07/15/2018 Vitamin B 12 deficiency [E53.8] 07/15/2018 Depression [F32.A] 07/15/2018 Essential hypertension, benign [I10] 07/15/2018 Hyperlipemia [E78.5] 07/15/2018 Type II diabetes mellitus, uncontrolled (HCC) [*07/15/2018 11/27/2021 Developmental delay [R62.50] 08/17/2018 Pulmonary hypertension (HCC) [I27.20] 02/24/2019 03/20/2021 HIMANSHU on CPAP [G47.33] 03/25/2019 Chest pain [R07.9] 06/18/2020 03/20/2021 Cervical radiculopathy [M54.12] 08/28/2020 Type 2 diabetes mellitus with diabetic neuropat*11/27/2021 Neck pain [M54.2] 04/01/2022 11/10/2022 Chronic bilateral low back pain without sciatic*04/01/2022 11/10/2022 Microalbuminuria [R80.9] 12/07/2023 Urge incontinence [N39.41] 02/03/2024 Encounter Status:Closed by DEMETRA LEIVA on 09/20/24[facility]10-24-2024 [facility] Medical Records Department [address] [place] [address] Discharge Summary 08/18/24 1130 MR#: [id number] Acct: [id number] Name: ARCENIO RAND Rep #: [id number] : 1965 59 From: Natalie ROBERTS PCP: Dr. Ranjeet Goodwin MD Status:ADM JESSENIA Location: ID3 [id number] Providers Date of Admission: 08/11/24 Date of Discharge: 08/18/24 Primary Care Physician: Dr. Ranjeet Goodwin MD Consultations 08/11/24 14:17 Consult: Hospitalist Routine Consulting Provider: [facility] Reason for Consult: Medical management s/p shoulder arthroscopy EMERGENT Consult: No MD Notified: Yes Date Notified: 08/11/24 Time Notified: 16:26 Method of Notification: Text Reason For Visit: LEFT SHOULDER ARTHROSCOPY WITH SUBA Diagnosis Discharge Diagnosis (1) S/P rotator cuff repair: Status: Acute Code(s): Z98.890 - Other specified postprocedural states Plan: postop day 7 status post left shoulder arthroscopy, rotator cuff repair, subacromial decompression, distal clavicle excision and debridement of labrum and Biceps Tenotomy with Dr. Echeverria 08/11/2024. 1. Sling at all times to left upper extremity. Nonweightbearing to left upper extremity. Patient was deemed appropriate for SNF per DD board, however insurance denied her. 2. Patient is stable orthopedically and medically and ready for discharge. Social work is involved and assisting with discharge. 3. Patient will follow up for post op appointment as previously scheduled in 2 weeks 4. Patient has outpatient PT appointment as previously scheduled in 2 weeks 5. no recent updated labwork due to stability. 6. DVT prophylaxis : Aspirin 81 mg twice daily x 2 weeks 7. Pain control: patient instructed to take tylenol 500mg 2 tablets TID, celebrex and oxycodone 1-2 tablets every 4-6 hours only as needed for pain control. 8. ok to leave sutures open to air, ok to cover with bandaids or sterile gauze if needed. Medications at Discharge Home Medications atenolol 100 mg tablet 100 mg PO DAILY blood pressure 02/24/18 atorvastatin 20 mg tablet 20 mg PO QHS cholesterol 02/24/18 duloxetine 60 mg capsule,delayed release 60 mg PO DAILY mental health 02/24/18 estradiol 1 mg tablet 1 mg PO DAILY supplement 02/24/18 metformin 1,000 mg tablet 1,000 mg PO BIDCM diabetic 02/24/18 sitagliptin phosphate 100 mg tablet 100 mg PO DAILY blood sugar 02/24/18 aspirin 81 mg chewable tablet 81 mg PO DAILY heart health 02/17/19 cholecalciferol (vitamin D3) 50 mcg (2,000 unit) capsule 2,000 unit PO DAILY vitamin 04/01/19 celecoxib 200 mg capsule 200 mg PO DAILY 04/11/24 chlorthalidone 25 mg tablet 25 mg PO DAILY 04/11/24 cyanocobalamin (vitamin B-12) 1,000 mcg tablet (Vitamin B-12) 1,000 mcg PO DAILY 04/11/24 empagliflozin 25 mg tablet (Jardiance) 25 mg PO DAILY 04/11/24 hydroxyzine HCl 25 mg tablet 25 mg PO Q6H PRN anxiety 04/11/24 insulin glargine 100 unit/mL (3 mL) subcutaneous pen 32 unit SQ DAILY blood sugar 04/11/24 levothyroxine 50 mcg tablet 50 mcg PO DAILY 04/11/24 lisinopril 40 mg tablet 40 mg PO DAILY 04/11/24 multivitamin-ferrous fumarate-folic acid 18 mg-400 mcg tablet ([facility]) 1 tab PO DAILY 04/11/24 omeprazole 20 mg capsule,delayed release 40 mg PO DAILY 04/11/24 pioglitazone 15 mg tablet 30 mg PO DAILY 04/11/24 sertraline 50 mg tablet (Zoloft) 50 mg PO DAILY 04/11/24 acetaminophen 500 mg tablet 1,000 mg (2 x 500 mg) PO Q8 #180 tabs 08/15/24 aspirin 81 mg chewable tablet 81 mg PO BIDCM 2 weeks #28 tabs 08/15/24 oxycodone 5 mg tablet 5 mg PO .q4-6 hrs prn PRN pain 4-10 7 days #20 tabs 08/15/24 sennosides 8.6 mg-docusate sodium 50 mg tablet (Stimulant Laxative Plus) 2 tab PO DAILY PRN PRN Constipation #14 tabs 08/15/24 Hospital Course Operations arthroscopy, shoulder Summary of Care Provided Hospital Course: Patient is a 59-year-old female post op day 7 status post left shoulder arthroscopy with rotator cuff repair, subacromial decompression biceps tenotomy, debridement of capsule and labrum and distal clavicle excision on 08/11/[address] Echeverria. no acute changes since yesterday. pain under control . States taking tylenol and oxycodone and ice help to relieve pain. only post op compliant was constipation for which she had a BM on Thursday and continued to feel better. this has resolved. ok to continue therapy to encourage mobility. patient to continue sling use at all times nonweightbearing to left upper extremity. Afebrile, no chest pain, shortness of breath, negative calf pain/ erythema, and no other signs of DVT. Patient has been medically stable throughout postop period. Physical Exam Narrative patient afebrile satting well on RA sling in place to left upper extremity Intact radial pulses Sensation intact to left upper extremity Intact to radial, median, ulnar nerve distribution Weight / BMI Weight (more content not included)...[facility]10-15-2024 Telephone encounter Note* Telephone Encounter - Melissa Ohara LPN - 08/09/2024 11:04 AM EDT Prescription Refill Information The patient has been identified by name and date of : Yes Caregiver verified no other encounters exist for this prescription request: Yes Caregiver confirmed with patient/requestor that no other refills are due, in the near future, with this provider at this time: Yes The last office visit in the department: 06/06/24 Does the patient have a future office visit with this provider/department: Yes 12/19/24 Requested Prescriptions Pending Prescriptions Disp Refills aspirin, enteric coated (ASPIRIN, ENTERIC COATED) 81 mg EC tablet 90 tablet 3 Sig: Take 1 tablet by mouth once daily. (self-started) cyanocobalamin (VITAMIN B-12) 1,000 mcg tab 90 tablet 3 Sig: Take 1 tablet by mouth once daily. multivitamin-ferrous fumarate-folic acid (CENTRUM) 90 tablet 3 Sig: Take 1 tablet by mouth once daily. Melissa Ohara LPN August 09, 2024 11:05 AM [facility]10-15-2024 Miscellaneous Notes* Telephone Encounter - Melissa Ohara LPN - 08/09/2024 11:04 AM EDT Prescription Refill Information The patient has been identified by name and date of : Yes Caregiver verified no other encounters exist for this prescription request: Yes Caregiver confirmed with patient/requestor that no other refills are due, in the near future, with this provider at this time: Yes The last office visit in the department: 06/06/24 Does the patient have a future office visit with this provider/department: Yes 12/19/24 Requested Prescriptions Pending Prescriptions Disp Refills aspirin, enteric coated (ASPIRIN, ENTERIC COATED) 81 mg EC tablet 90 tablet 3 Sig: Take 1 tablet by mouth once daily. (self-started) cyanocobalamin (VITAMIN B-12) 1,000 mcg tab 90 tablet 3 Sig: Take 1 tablet by mouth once daily. multivitamin-ferrous fumarate-folic acid (CENTRUM) 90 tablet 3 Sig: Take 1 tablet by mouth once daily. Melissa Ohara LPN August 09, 2024 11:05 AM documented in this encounterA[facility]09-[facility] Telephone encounter Note * Telephone Encounter - Charles Cortez RN - 07/07/2024 1:05 PM EDT The patient has been identified by name and date of : Yes Caregiver verified no other encounters exist for this prescription request: Yes Caregiver confirmed with patient/requestor that no other refills are due, in the near future, with this provider at this time: Yes The last office visit in the department: 06/06/2024 Does the patient have a future office visit with this provider/department: Yes 12/19/2024 Requested Prescriptions Pending Prescriptions Disp Refills celecoxib (CELEBREX) 200 mg capsule 30 capsule 2 Sig: Take 1 capsule by mouth once daily. DULoxetine (CYMBALTA) 60 mg capsule 90 capsule 1 Sig: Take 1 capsule by mouth once daily. Charles Cortez RN July 07, 2024 1:06 PM [facility]09-12-2024 Miscellaneous Notes* Telephone Encounter - Charles Cortez RN - 07/07/2024 1:05 PM EDT The patient has been identified by name and date of : Yes Caregiver verified no other encounters exist for this prescription request: Yes Caregiver confirmed with patient/requestor that no other refills are due, in the near future, with this provider at this time: Yes The last office visit in the department: 06/06/2024 Does the patient have a future office visit with this provider/department: Yes 12/19/2024 Requested Prescriptions Pending Prescriptions Disp Refills celecoxib (CELEBREX) 200 mg capsule 30 capsule 2 Sig: Take 1 capsule by mouth once daily. DULoxetine (CYMBALTA) 60 mg capsule 90 capsule 1 Sig: Take 1 capsule by mouth once daily. Charles Cortez RN July 07, 2024 1:06 PM documented in this encounterAultman [facility]08-23-[facility] Telephone encounter Note * Telephone Encounter - Adelaide Donovan APRN.CNP - 06/17/2024 11:25 AM EDT The following approved medication requests have been transmitted electronically. Requested Prescriptions Pending Prescriptions Disp Refills atenolol (TENORMIN) 100 mg tablet 90 tablet 1 Sig: Take 1 tablet by mouth once daily. atorvastatin (LIPITOR) 20 mg tablet 90 tablet 1 Sig: Take 1 tablet by mouth daily at bedtime. For cholesterol. empagliflozin (JARDIANCE) 25 mg tablet 90 tablet 1 Sig: Take 1 tablet by mouth once daily. estradiol (ESTRACE) 1 mg tablet 90 tablet 1 Sig: Take 1 tablet by mouth once daily. metFORMIN ER (GLUCOPHAGE XR) 500 mg 24 hr tablet 360 tablet 1 Sig: Take 2 tablet by mouth twice daily with food. pioglitazone (ACTOS) 30 mg tablet 90 tablet 3 Sig: Take 1 tablet by mouth once daily. SITagliptin phosphate (JANUVIA) 100 mg tablet 90 tablet 1 Sig: Take 1 tablet by mouth once daily. lisinopril (ZESTRIL) 40 mg tablet 90 tablet 3 Sig: Take 1 tablet by mouth once daily. Adelaide Donovan APRN.CNP [facility]08-23-2024 Miscellaneous Notes* Telephone Encounter - Adelaide Donovan APRN.CNP - 06/17/2024 11:25 AM EDT The following approved medication requests have been transmitted electronically. Requested Prescriptions Pending Prescriptions Disp Refills atenolol (TENORMIN) 100 mg tablet 90 tablet 1 Sig: Take 1 tablet by mouth once daily. atorvastatin (LIPITOR) 20 mg tablet 90 tablet 1 Sig: Take 1 tablet by mouth daily at bedtime. For cholesterol. empagliflozin (JARDIANCE) 25 mg tablet 90 tablet 1 Sig: Take 1 tablet by mouth once daily. estradiol (ESTRACE) 1 mg tablet 90 tablet 1 Sig: Take 1 tablet by mouth once daily. metFORMIN ER (GLUCOPHAGE XR) 500 mg 24 hr tablet 360 tablet 1 Sig: Take 2 tablet by mouth twice daily with food. pioglitazone (ACTOS) 30 mg tablet 90 tablet 3 Sig: Take 1 tablet by mouth once daily. SITagliptin phosphate (JANUVIA) 100 mg tablet 90 tablet 1 Sig: Take 1 tablet by mouth once daily. lisinopril (ZESTRIL) 40 mg tablet 90 tablet 3 Sig: Take 1 tablet by mouth once daily. Adelaide oDnovan APRN.ZIGGY * Telephone Encounter - Jolene Moss LPN - 06/17/2024 10:53 AM EDT The patient has been identified by name and date of : Yes Pharmacy Caregiver verified no other encounters exist for this prescription request: Yes Caregiver confirmed with patient/requestor that no other refills are due, in the near future, with this provider at this time: Yes The last office visit in the department: 06/06/2024 Does the patient have a future office visit with this provider/department: Yes 12/19/2024 Requested Prescriptions Pending Prescriptions Disp Refills atenolol (TENORMIN) 100 mg tablet 90 tablet 1 Sig: Take 1 tablet by mouth once daily. atorvastatin (LIPITOR) 20 mg tablet 90 tablet 1 Sig: Take 1 tablet by mouth daily at bedtime. For cholesterol. empagliflozin (JARDIANCE) 25 mg tablet 90 tablet 1 Sig: Take 1 tablet by mouth once daily. estradiol (ESTRACE) 1 mg tablet 90 tablet 1 Sig: Take 1 tablet by mouth once daily. metFORMIN ER (GLUCOPHAGE XR) 500 mg 24 hr tablet 360 tablet 1 Sig: Take 2 tablet by mouth twice daily with food. pioglitazone (ACTOS) 30 mg tablet 90 tablet 3 Sig: Take 1 tablet by mouth once daily. SITagliptin phosphate (JANUVIA) 100 mg tablet 90 tablet 1 Sig: Take 1 tablet by mouth once daily. lisinopril (ZESTRIL) 40 mg tablet 90 tablet 3 Sig: Take 1 tablet by mouth once daily. Jolene Moss LPN June 17, 2024 10:55 AM documented in this encounterAultman [facility]08-[facility] Telephone encounter Note * Telephone Encounter - Jolene Moss LPN - 06/17/2024 10:53 AM EDT The patient has been identified by name and date of : Yes Pharmacy Caregiver verified no other encounters exist for this prescription request: Yes Caregiver confirmed with patient/requestor that no other refills are due, in the near future, with this provider at this time: Yes The last office visit in the department: 06/06/2024 Does the patient have a future office visit with this provider/department: Yes 12/19/2024 Requested Prescriptions Pending Prescriptions Disp Refills atenolol (TENORMIN) 100 mg tablet 90 tablet 1 Sig: Take 1 tablet by mouth once daily. atorvastatin (LIPITOR) 20 mg tablet 90 tablet 1 Sig: Take 1 tablet by mouth daily at bedtime. For cholesterol. empagliflozin (JARDIANCE) 25 mg tablet 90 tablet 1 Sig: Take 1 tablet by mouth once daily. estradiol (ESTRACE) 1 mg tablet 90 tablet 1 Sig: Take 1 tablet by mouth once daily. metFORMIN ER (GLUCOPHAGE XR) 500 mg 24 hr tablet 360 tablet 1 Sig: Take 2 tablet by mouth twice daily with food. pioglitazone (ACTOS) 30 mg tablet 90 tablet 3 Sig: Take 1 tablet by mouth once daily. SITagliptin phosphate (JANUVIA) 100 mg tablet 90 tablet 1 Sig: Take 1 tablet by mouth once daily. lisinopril (ZESTRIL) 40 mg tablet 90 tablet 3 Sig: Take 1 tablet by mouth once daily. Jolene Moss LPN June 17, 2024 10:55 AM [facility]08-22-2024 Telephone encounter Note* Telephone Encounter - Adelaide Donovan APRN.CNP - 06/16/2024 6:10 PM EDT The following approved medication requests have been transmitted electronically. Requested Prescriptions Pending Prescriptions Disp Refills Insulin [place], Disposable, (BD ULTRA-FINE ROSALIE PEN NEEDLE) 32 gauge x 5/32 100 Each 5 Sig: Use to inject insulin once daily as directed Adelaide Donovan APRN.CNP [facility]08-22-2024 Miscellaneous Notes* Telephone Encounter - Adelaide Donovan APRN.CNP - 06/16/2024 6:10 PM EDT The following approved medication requests have been transmitted electronically. Requested Prescriptions Pending Prescriptions Disp Refills Insulin [place], Disposable, (BD ULTRA-FINE ROSALIE PEN NEEDLE) 32 gauge x 5/32 100 Each 5 Sig: Use to inject insulin once daily as directed Adelaide Donovan APRN.CNP * Telephone Encounter - Sheri Olea - 06/15/2024 1:23 PM EDT Prescription Refill Information The patient has been identified by name and date of : Yes Caregiver verified no other encounters exist for this prescription request: Yes Caregiver confirmed with patient/requestor that no other refills are due, in the near future, with this provider at this time: Yes The last office visit in the department: 06/06/2024 Does the patient have a future office visit with this provider/department: Yes Requested Prescriptions Pending Prescriptions Disp Refills Insulin [place], Disposable, (BD ULTRA-FINE ROSALIE PEN NEEDLE) 32 gauge x 5/32 100 Each 5 Sig: Use to inject insulin once daily as directed Sheri Beatty June 15, 2024 1:23 PM documented in this encounterAultman [facility]08-21-2024 Telephone encounter Note * Telephone Encounter - Sheri Olea - 06/15/2024 1:23 PM EDT Prescription Refill Information The patient has been identified by name and date of : Yes Caregiver verified no other encounters exist for this prescription request: Yes Caregiver confirmed with patient/requestor that no other refills are due, in the near future, with this provider at this time: Yes The last office visit in the department: 06/06/2024 Does the patient have a future office visit with this provider/department: Yes Requested Prescriptions Pending Prescriptions Disp Refills Insulin [place], Disposable, (BD ULTRA-FINE ROSALIE PEN NEEDLE) 32 gauge x 5/32 100 Each 5 Sig: Use to inject insulin once daily as directed Sheri Beatty June 15, 2024 1:23 PM [facility]08-13-2024 Telephone encounter Note* Telephone Encounter - Adelaide Peterson LPN - 06/07/2024 2:51 PM EDT 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 Verbalized understanding. [facility]08-13-2024 Miscellaneous Notes* Telephone Encounter - Adelaide Peterson LPN - 06/07/2024 2:51 PM EDT 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 Verbalized understanding. * Telephone Encounter - Ranjeet Goodwin MD - 06/07/2024 2:08 PM EDT Not unless the repeat labs are dramatically worse. She still should be ok. The follow up labs in the next week will tell us if any changes need made * Telephone Encounter - Renetta Villa RN - 06/07/2024 12:45 PM EDT Carter James Pts caregiver called and is notified of providers results and instructions. She voices understanding. Hse states Pt is supposed to be having shoulder surgery, she is waiting for the call for them to schedule the date. She is asking if the provider thinks they should postpone it because of the kidney function being off and Pt being a Diabetic. Please call and advise. Renetta Villa RN * Telephone Encounter - Ranjeet Goodwin MD - 06/07/2024 8:04 AM EDT Labs ok however, her kidney function is reduced Push fluids and recheck bmp in one week documented in this encounterAultman [facility]08-13-2024 Telephone encounter Note * Telephone Encounter - Ranjeet Goodwin MD - 06/07/2024 2:08 PM EDT Not unless the repeat labs are dramatically worse. She still should be ok. The follow up labs in the next week will tell us if any changes need made [facility]08-13-2024 Telephone encounter Note* Telephone Encounter - Renetta Villa RN - 06/07/2024 12:45 PM EDT Carter James Pts caregiver called and is notified of providers results and instructions. She voices understanding. Hse states Pt is supposed to be having shoulder surgery, she is waiting for the call for them to schedule the date. She is asking if the provider thinks they should postpone it because of the kidney function being off and Pt being a Diabetic. Please call and advise. Renetta Villa RN [facility]08-13-2024 Telephone encounter Note* Telephone Encounter - Ranjeet Goodwin MD - 06/07/2024 8:04 AM EDT Labs ok however, her kidney function is reduced Push fluids and recheck bmp in one week [facility]08-12-2024 Instructions* Patient Instructions* Ranjeet Goodwin MD - 06/06/2024 10:57 AM EDT Increase pioglitazone to 30 mg a day. Call sugars in two weeks. documented in this encounterA[facility] History of Present illness Narrative* Ranjeet Goodwin MD - 06/06/2024 10:45 AM EDT Patient presents with: 6 Month Exam HPI: Patient presents today for office visit for follow up. HIMANSHU:Sees sleep med. Using her cpap. Benefiting from its use. DM: sugars are up. Did lose a little weight. Has been slightly more thirstyNot really following a diet. Sugars have been pretty normal for her. No low spells. Will check labs since she had a diuretic added at last ov for adjusting bp HYPOTHYROID: did lose a little weight. No changes in hair or skin. HYPERTENSION:no chest pain, shortness of breath. No palpitations. No edema. PSYCH:emotionally is doing well. Sleeping well. Needs surgery scheduled yet. Had an area of breakout on her arm. Had to wait for it to heal. Latest Ref Rng 05/24/2024 Hemoglobin A1C 4.3 - 5.6 % 7.8 (H) Estimated Average Glucose mg/dL 177 Legend: (H) High Latest Ref Rng 11/23/2023 WBC 3.70 - 11.00 k/uL 7.77 RBC 3.90 - 5.20 m/uL 5.02 Hemoglobin 11.5 - 15.5 g/dL 13.9 Hematocrit 36.0 - 46.0 % 44.8 MCV 80.0 - 100.0 fL 89.2 MCH 26.0 - 34.0 pg 27.7 MCHC 30.5 - 36.0 g/dL 31.0 RDW-CV 11.5 - 15.0 % 14.6 Platelet Count 150 - 400 k/uL 288 MPV 9.0 - 12.7 fL 10.4 Neut% % 65.9 Abs Neut (ANC) 1.45 - 7.50 k/uL 5.12 Lymph% % 22.5 Abs Lymph 1.00 - 4.00 k/uL 1.75 Tyrrell% % 9.0 Abs Tyrrell <0.87 k/uL 0.70 Eosin% % 1.8 Abs Eosin <0.46 k/uL 0.14 Baso% % 0.5 Abs Baso <0.11 k/uL 0.04 Immature Gran % % 0.3 IMMATURE GRANS (ABS) <0.10 k/uL <0.03 NRBC /100 WBC 0.0 Absolute nRBC <0.01 k/uL <0.01 DTYPE Auto Protein, Total 6.3 - 8.0 g/dL 6.9 Albumin 3.9 - 4.9 g/dL 4.0 Calcium 8.5 - 10.2 mg/dL 9.3 Bilirubin, Total 0.2 - 1.3 mg/dL 0.5 Alkaline Phosphatase 34 - 123 U/L 62 AST 13 - 35 U/L 14 ALT 7 - 38 U/L 11 Glucose 74 - 99 mg/dL 141 (H) BUN 7 - 21 mg/dL 15 Creatinine 0.58 - 0.96 mg/dL 0.85 Sodium 136 - 144 mmol/L 140 Potassium 3.7 - 5.1 mmol/L 4.3 Chloride 97 - 105 mmol/L 102 CO2 22 - 30 mmol/L 28 Anion Gap 9 - 18 mmol/L 10 eGFR >=60 mL/min/1.73m 81 Cholesterol, Total <200 mg/dL 153 Triglyceride <150 mg/dL 170 (H) HDL Cholesterol >39 mg/dL 49 Non HDL Cholesterol <130 mg/dL 104 Fasting Time hrs 12 VLDL Cholesterol <30 mg/dL 34 (H) TC:HDL Ratio <5.10 3.12 LDL Cholesterol <100 mg/dL 70 LDL:HDL Ratio <2.54 1.43 Creatinine, Ur Random (UCRR) 20.0 - 300.0 mg/dL 96.6 Albumin, Urine Random mg/L 39.7 Albumin/Creat Ratio <30 mg/g 41 (H) Hemoglobin A1C 4.3 - 5.6 % 7.0 (H) Estimated Average Glucose mg/dL 154 TSH 0.270 - 4.200 mIU/L 0.846 Vitamin B12 232 - 1,245 pg/mL 1,843 (H) Legend: (H) High MEDICATIONS: Current Outpatient Medications Medication Sig CPAP/BIPAP/OTHER APAP 7-15 cmH2O DME [employer] omeprazole (PRILOSEC) 20 mg capsule Take 2 capsules by mouth once daily. Lancets One Touch Test blood sugar(s) 2 times daily. Dx: Type 2 DM - Controlled E11.9 Insulin: Yes insulin glargine 100 unit/mL (3 mL) Inject 32 Units subcutaneously every morning. blood sugar diagnostic (BLOOD GLUCOSE TEST) test strip Test blood sugar(s) 2 times daily. Dx: Type 2 DM - Controlled E11.9 Insulin: Yes levothyroxine (SYNTHROID) 50 mcg tablet Take 1 tablet by mouth once daily. Take on empty stomach. For Thyroid. celecoxib (CELEBREX) 200 mg capsule Take 1 capsule by mouth once daily. chlorthalidone (HYGROTON) 25 mg tablet Take 1 tablet by mouth once daily. Insulin [place], Disposable, (BD ULTRA-FINE ROSALIE PEN NEEDLE) 32 gauge x Use to inject insulinonce daily as directed nystatin (MYCOSTATIN) cream Apply 1 application to affected area two times a day. On left foot DULoxetine (CYMBALTA) 60 mg capsule Take 1 capsule by mouth once daily. empagliflozin (JARDIANCE) 25 mg tablet Take 1 tablet by mouth once daily. metFORMIN ER (GLUCOPHAGE XR) 500 mg 24 hr tablet Take 2 tablet by mouth twice daily with food. atenolol (TENORMIN) 100 mg tablet Take 1 tablet by mouth once daily. atorvastatin (LIPITOR) 20 mg tablet Take 1 tablet by mouth daily at bedtime. For cholesterol. SITagliptin phosphate (JANUVIA) 100 mg tablet Take 1 tablet by mouth once daily. estradiol (ESTRACE) 1 mg tablet Take 1 tablet by mouth once daily. pioglitazone (ACTOS) 15 mg tablet Take 1 tablet by mouth once daily. lisinopril (ZESTRIL) 40 mg tablet Take 1 tablet by mouth once daily. cyanocobalamin (VITAMIN B-12) 1,000 mcg tab Take 1 tablet by mouth once daily. multivitamin-ferrous fumarate-folic acid (CENTRUM) Take 1 tablet by mouth once daily. aspirin, enteric coated (ASPIRIN, ENTERIC COATED) 81 mg EC tablet Take 1 tablet by mouth once daily. (self-started) triamcinolone acetonide (KENALOG) 0.1 % ointment Apply to affected area twice daily. X 2 weeks; then take a break X 1 week. If still present, then restart X 2 more weeks. sertraline (ZOLOFT) 50 mg tablet Take 1 tablet by mouth once daily. blood sugar diagnostic (BLOOD GLUCOSE TEST) test strip Test blood sugar(s) 2 times daily. Dx: Type 2 DM - Uncontrolled E11.65 Insulin: Yes hydrOXYzine HCl (ATARAX) 25 mg tablet Take 1 tablet by mouth every 6 hours as needed for anxiety. Cholecalciferol, Vitamin D3, (VITAMIN D-3) 50 mcg (2,000 unit) cap Take 1 capsule by mouth once daily. COMPOUNDED PRESCRIPTION Diabetic shoes No current facility-administered medications for this visit. ALLERGIES: ALLERGIES Allergen Reactions Amoxicillin Other: See Comments Bleach (Sodium Hypo* Hives Penicillins Other: See Comments Sulfa (Sulfonamide * Rash & dry heaves. PAST MEDICAL HISTORY No date: Arthralgia No date: Chronic back pain No date: Depression No date: Developmental delay No date: Diabetic neuropathy (HCC) Comment: feet No date: DM (diabetes mellitus) (HCC) No date: Hypertension No date: Hypothyroid No date: Mental disorder No date: Snoring PAST SURGICAL HISTORY 09/23/2018: COLONOSCOPY FLX DX W/COLLJ SPEC WHEN PFRMD Comment: Colonoscopy No date: HYSTERECTOMY; N/A No date: XCAPSL CTRC RMVL INSJ IO LENS PROSTH CPLX WO ECP FAMILY HISTORY Problem Relation Age of Onset Arthritis Mother Diabetes Mother Hypertension Mother Hyperlipidemia Mother Social History Tobacco Use Smoking status: Never Smokeless tobacco: Never Vaping Use Vaping Use: Never used Substance Use Topics Alcohol use: No Drug use: No Reviewed current medications, allergies, past medical history, surgical history, family history andsocial history today. REVIEW OF SYSTEMS All other reviewed and negative other than HPI. HEALTH MAINTENANCE: Reviewed health maintenance issues today and recommended the following in detail. Anxiety Screening-related to her surgery. Is on meds Hepatitis B Vaccine(1 of 3 - 19+ 3-dose series) Never done Shingrix Vaccine(1 of 2) Never done Pneumococcal Vaccine(2 of 2 - PCV) due on 09/19/2021 Diabetic Foot Exam - checking her feet today. VITALS: BP 134/78 Pulse 67 Resp 16 Wt 80.3 kg (177 lb) SpO2 100% BMI 34.57 kg/m Last 4 Encounter Wt Readings: Date: Wt: 06/06/2024 80.6 kg (177 lb 11.1 oz) 06/06/2024 80.3 kg (177 lb) 04/12/2024 82.1 kg (181 lb) 03/07/2024 84.6 kg (186 lb 9.6 oz) PHYSICAL EXAMINATION: General appearance: Well appearing, alert, in no acute distress, well-hydrated, well nourished. Skin: Skin color, texture, turgor normal, no suspicious rashes or lesions Neck: Supple, no adenopathy; thyroid symmetric, normal size, no bruits Back: Normal exam Lungs: Lungs clear to auscultation. No wheezing, rhonchi, rales Heart: RRR without murmur, gallop, or rubs. No ectopy Abdomen: Normal abdominal exam, Abdomen soft, non-tender. Bowel sounds normal. No masses, organomegaly Extremities: No deformities, edema, skin discoloration, clubbing or cyanosis. Good capillary refill. Feet:Shoes and socks removed, No deformities, ulcers, calluses, normal distal pulses, and not sensitive to monofilament slightly bilaterally. Does have an abrasion on the end of two toes on her right. Healing well. Discussed foot care. ASSESSMENT/PLAN: 1. Type 2 diabetes mellitus with diabetic neuropathy, unspecified whether halfway insulin use (HCC) - ICD9: 250.60, 357.2, ICD10: E11.40 (primary diagnosis) - increase actos. Follow sugars. Check labs now and in six months. - COMPLETE BLOOD COUNT AND DIFFERENTIAL - COMPREHENSIVE METABOLIC PANEL - HEMOGLOBIN A1C - ALBUMIN/CREATININE RATIO, URINE 2. Essential hypertension, benign - ICD9: 401.1, ICD10: I10 - well controlled. - BASIC METABOLIC PANEL 3. HIMANSHU on CPAP - ICD9: 327.23, ICD10: G47.33 - benefiting from its use. 4. Vitamin B 12 deficiency - ICD9: 266.2, ICD10: E53.8 - follow labs. - VITAMIN B12 5. Microalbuminuria - ICD9: 791.0, ICD10: R80.9 -continue isabel. Keep bp tight. 6. Acquired hypothyroidism - ICD9: 244.9, ICD10: E03.9 - follow la bs. - THYROID STIMULATING HORMONE 7. Depression, unspecified depression type - ICD9: 311, ICD10: F32.A - stable. Continue meds. 8. Developmental delay - ICD9: 783.40, ICD10: R62.50 - stable. Has a human services case manager who helps with care. 9. Hyperlipidemia, unspecified hyperlipidemia type - ICD9: 272.4, ICD10: E78.5 - follow labs. - PIOGLITAZONE 30 MG TABLET - HEPATIC FUNCTION PNL - LIPID PANEL BASIC 10. Encounter for screening examination for other mental health and behavioral disorders - ICD9: V79.8, ICD10: Z13.39 - ANXIETY SCREENING Ranjeet Goodwin RTO in six months and prn. documented in this [facility] History of Present illness Narrative* Chyna Pérez APRN.METAL PICKLING EQUIPMENT OPERATOR - 06/06/2024 10:00 AM EDT Images from the original note were not included. [facility] Follow up/ Established patient visit Date of last visit : 02/29/2024 The following Impression/Plan was copied and pasted from the patient's last [facility] visit on 02/29/24: IMPRESSION: Himanshu (obstructive sleep apnea) Arcenio Rand is a delightful 59 year old female with severe HIMANSHU. She uses CPAP nightly but is now having morning headaches, rising BP which makes one wonder if the current pressure of 12 cmH2O iscontrolling her apnea. She likely has large mask leaks since she has to refill the water chamber inthe middle of the night. PMH of DM2, HLD, urge incontinence, hypothyroidism, depression, obesity, developmental delay. I was unable to gain access to the clinical menu of her [employer] 2 today. PLAN: - Continue PAP Change setting from CPAP 12 to auto CPAP 10-20 cmH2O. DME [employer]. Get a download in 1month. Requested a mask fitting. - Remember to clean your mask and equipment regularly, as directed. - You should be eligible for new supplies approximately every 3-6 months, depending on your insurance coverage. Contact your Durable Medical Equipment (DME) company for new supplies as needed. Wt down 8 lbs in last yr Hoping to avoid another sleep study Follow up 3 mos Chyna Pérez APRN.METAL PICKLING EQUIPMENT OPERATOR Here for follow up for HIMANSHU on PAP therapy Accompanied by human services case manager Carter Had dry nose, no further nosebleeds, using saline gel Has a Carli, really likes this machine SLEEP APNEA Sleep apnea type : HIMANSHU, Most Recent Apnea-Hypopnea Index (AHI): 41 Treatment : PAP therapy DME: [employer] PAP History: Uses AutoPAP for 7 hours per night, 7 nights per week. Current PAP settin-20 cm H2O. Difficulties with AutoPAP: None Reviewed objective PAP compliance data: Mask type: hyrid full face mask Mask issues: skin irritation There is a perceived benefit by the patient: no more morning headaches SLEEP HYGIENE QUESTIONS: Bedtime : 9 pm Wake up Time : 6 am Time it takes to fall sleep : 30-60 min Number of times patient wakes up per night : 3x Reason (s) why patient wakes up during the night : urination Estimated total sleep time ( in a 24 hour period of time) : 4 Naps : No PATIENT-ENTERED QUESTIONNAIRE SLEEP SCORES SLEEP RELATED ROS Review of Systems Gastrointestinal: Negative for heartburn. Genitourinary: Positive for nocturia. Neurological: Negative for headaches. ALLERGIES Allergen Reactions Amoxicillin Other: See Comments Bleach (Sodium Hypo* Hives Penicillins Other: See Comments Sulfa (Sulfonamide * Rash & dry heaves. CURRENT MEDICATIONS: omeprazole (PRILOSEC) 20 mg capsule Take 2 capsules by mouth once daily. Lancets One Touch Test blood sugar(s) 2 times daily. Dx: Type 2 DM - Controlled E11.9 Insulin: Yes insulin glargine 100 unit/mL (3 mL) Inject 32 Units subcutaneously every morning. blood sugar diagnostic (BLOOD GLUCOSE TEST) test strip Test blood sugar(s) 2 times daily. Dx: Type 2 DM - Controlled E11.9 Insulin: Yes levothyroxine (SYNTHROID) 50 mcg tablet Take 1 tablet by mouth once daily. Take on empty stomach. For Thyroid. celecoxib (CELEBREX) 200 mg capsule Take 1 capsule by mouth once daily. chlorthalidone (HYGROTON) 25 mg tablet Take 1 tablet by mouth once daily. CPAP/BIPAP/OTHER autoCPAP 10-20 cmH2O DME [employer] Insulin [place], Disposable, (BD ULTRA-FINE ROSALIE PEN NEEDLE) 32 gauge x Use to inject insulinonce daily as directed nystatin (MYCOSTATIN) cream Apply 1 application to affected area two times a day. On left foot DULoxetine (CYMBALTA) 60 mg capsule Take 1 capsule by mouth once daily. empagliflozin (JARDIANCE) 25 mg tablet Take 1 tablet by mouth once daily. metFORMIN ER (GLUCOPHAGE XR) 500 mg 24 hr tablet Take 2 tablet by mouth twice daily with food. atenolol (TENORMIN) 100 mg tablet Take 1 tablet by mouth once daily. atorvastatin (LIPITOR) 20 mg tablet Take 1 tablet by mouth daily at bedtime. For cholesterol. SITagliptin phosphate (JANUVIA) 100 mg tablet Take 1 tablet by mouth once daily. estradiol (ESTRACE) 1 mg tablet Take 1 tablet by mouth once daily. pioglitazone (ACTOS) 15 mg tablet Take 1 tablet by mouth once daily. lisinopril (ZESTRIL) 40 mg tablet Take 1 tablet by mouth once daily. cyanocobalamin (VITAMIN B-12) 1,000 mcg tab Take 1 tablet by mouth once daily. multivitamin-ferrous fumarate-folic acid (CENTRUM) Take 1 tablet by mouth once daily. aspirin, enteric coated (ASPIRIN, ENTERIC COATED) 81 mg EC tablet Take 1 tablet by mouth once daily. (self-started) triamcinolone acetonide (KENALOG) 0.1 % ointment Apply to affected area twice daily. X 2 weeks; then take a break X 1 week. If still present, then restart X 2 more weeks. blood sugar diagnostic (BLOOD GLUCOSE TEST) test strip Test blood sugar(s) 2 times daily. Dx: Type 2 DM - Uncontrolled E11.65 Insulin: Yes hydrOXYzine HCl (ATARAX) 25 mg tablet Take 1 tablet by mouth every 6 hours as needed for anxiety. Cholecalciferol, Vitamin D3, (VITAMIN D-3) 50 mcg (2,000 unit) cap Take 1 capsule by mouth once daily. sertraline (ZOLOFT) 50 mg tablet Take 1 tablet by mouth once daily. COMPOUNDED PRESCRIPTION Diabetic shoes PHYSICAL EXAMINATION: Vital Signs: BP 148/82 Pulse 64 Resp 16 Wt 80.6 kg (177 lb 11.1 oz) SpO2 99% BMI 34.70 kg/m PHYSICAL EXAM: General appearance: pleasant, NAD Mental status: alert and oriented, able to provide own history Constitutional: obese Skin: No visible rashes on exposed skin Neuro: No focal deficits observed, no tremors IMPRESSION: Himanshu on cpap (primary encounter diagnosis) Arcenio Rand is a 59 year old female with PMH of severe HIMANSHU. --Patient is compliant with PAP therapy and reports subjective benefits from treatment --We reviewed PAP compliance report; AHI is normalized PLAN: - Continue Auto CPAP at 7-15 cmH2O. I changed the pressure setting from 10-20. - Remember to clean your mask and equipment regularly, as directed. - You should be eligible for new supplies approximately every 3-6 months, depending on your insurance coverage. Contact your Durable Medical Equipment (DME) company for new supplies as needed. - Follow up in 12 months with LEN Chyna Pérez APRN.CNP documented in [facility] encounterA[facility] Telephone encounter Note * Telephone Encounter - Viviana Hummel RN - 05/19/2024 11:10 AM EDT The patient has been identified by name and date of : Yes Caregiver verified no other encounters exist for this prescription request: Yes Caregiver confirmed with patient/requestor that no other refills are due, in the near future, with this provider at this time: Yes The last office visit in the department: 04/12/2024 Does the patient have a future office visit with this provider/department: Yes 06/06/2024 Requested Prescriptions Pending Prescriptions Disp Refills omeprazole (PRILOSEC) 20 mg capsule 60 capsule 11 Sig: Take 2 capsules by mouth once daily. Viviana Hummel RN May 19, 2024 11:11 AM [facility]07-25-2024 Miscellaneous Notes* Telephone Encounter - Viviana Hummel RN - 05/19/2024 11:10 AM EDT The patient has been identified by name and date of : Yes Caregiver verified no other encounters exist for this prescription request: Yes Caregiver confirmed with patient/requestor that no other refills are due, in the near future, with this provider at this time: Yes The last office visit in the department: 04/12/2024 Does the patient have a future office visit with this provider/department: Yes 06/06/2024 Requested Prescriptions Pending Prescriptions Disp Refills omeprazole (PRILOSEC) 20 mg capsule 60 capsule 11 Sig: Take 2 capsules by mouth once daily. Viviana Hummel RN May 19, 2024 11:11 AM documented in this encounterA[facility] Telephone encounter Note * Telephone Encounter - Adelaide Peterson LPN - 05/17/2024 1:18 PM EDT Prescription Refill Information The patient has been identified by name and date of : Yes Caregiver verified no other encounters exist for this prescription request: Yes Caregiver confirmed with patient/requestor that no other refills are due, in the near future, with this provider at this time: Yes The last office visit in the department: 04/12/2024 Does the patient have a future office visit with this provider/department: Yes Requested Prescriptions Pending Prescriptions Disp Refills blood sugar diagnostic (BLOOD GLUCOSE TEST) test strip 100 Strip 11 Sig: Test blood sugar(s) 2 times daily. Dx: Type 2 DM - Controlled E11.9 Insulin: Yes Adelaide Peterson LPN May 17, 2024 1:18 PM [facility]-23-2024 Miscellaneous Notes* Telephone Encounter - Adelaide Peterson LPN - 05/17/2024 1:18 PM EDT Prescription Refill Information The patient has been identified by name and date of : Yes Caregiver verified no other encounters exist for this prescription request: Yes Caregiver confirmed with patient/requestor that no other refills are due, in the near future, with this provider at this time: Yes The last office visit in the department: 04/12/2024 Does the patient have a future office visit with this provider/department: Yes Requested Prescriptions Pending Prescriptions Disp Refills blood sugar diagnostic (BLOOD GLUCOSE TEST) test strip 100 Strip 11 Sig: Test blood sugar(s) 2 times daily. Dx: Type 2 DM - Controlled E11.9 Insulin: Yes Adelaide Peterson LPN May 17, 2024 1:18 PM documented in this encounterA[facility] Telephone encounter Note * Telephone Encounter - Adelaide Peterson LPN - 05/17/2024 1:17 PM EDT Prescription Refill Information The patient has been identified by name and date of : Yes Caregiver verified no other encounters exist for this prescription request: Yes Caregiver confirmed with patient/requestor that no other refills are due, in the near future, with this provider at this time: Yes The last office visit in the department: 04/12/2024 Does the patient have a future office visit with this provider/department: Yes Requested Prescriptions Pending Prescriptions Disp Refills Lancets 200 Each 3 Sig: One Touch Test blood sugar(s) 2 times daily. Dx: Type 2 DM - Controlled E11.9 Insulin: Yes Adelaide Peterson LPN May 17, 2024 1:17 PM [facility] Miscellaneous Notes* Telephone Encounter - Adelaide Peterson LPN - 05/17/2024 1:17 PM EDT Prescription Refill Information The patient has been identified by name and date of : Yes Caregiver verified no other encounters exist for this prescription request: Yes Caregiver confirmed with patient/requestor that no other refills are due, in the near future, with this provider at this time: Yes The last office visit in the department: 04/12/2024 Does the patient have a future office visit with this provider/department: Yes Requested Prescriptions Pending Prescriptions Disp Refills Lancets 200 Each 3 Sig: One Touch Test blood sugar(s) 2 times daily. Dx: Type 2 DM - Controlled E11.9 Insulin: Yes Adelaide Peterson LPN May 17, 2024 1:17 PM documented in this encounterA[facility] Telephone encounter Note * Telephone Encounter - Adelaide Peterson LPN - 05/17/2024 1:16 PM EDT Prescription Refill Information The patient has been identified by name and date of : Yes Caregiver verified no other encounters exist for this prescription request: Yes Caregiver confirmed with patient/requestor that no other refills are due, in the near future, with this provider at this time: Yes The last office visit in the department: 04/12/2024 Does the patient have a future office visit with this provider/department: Yes Requested Prescriptions Pending Prescriptions Disp Refills insulin glargine 100 unit/mL (3 mL) 5 Each 5 Sig: Inject 32 Units subcutaneously every morning. Adelaide Peterson LPN May 17, 2024 1:16 PM [facility]24 Miscellaneous Notes* Telephone Encounter - Adelaide Peterson LPN - 05/17/2024 1:16 PM EDT Prescription Refill Information The patient has been identified by name and date of : Yes Caregiver verified no other encounters exist for this prescription request: Yes Caregiver confirmed with patient/requestor that no other refills are due, in the near future, with this provider at this time: Yes The last office visit in the department: 04/12/2024 Does the patient have a future office visit with this provider/department: Yes Requested Prescriptions Pending Prescriptions Disp Refills insulin glargine 100 unit/mL (3 mL) 5 Each 5 Sig: Inject 32 Units subcutaneously every morning. Adelaide Peterson LPN May 17, 2024 1:16 PM documented in this encounterA[facility]06-[facility] Telephone encounter Note * Telephone Encounter - Deanna Hyatt LPN - 04/14/2024 6:01 PM EDT Compliance report not received. Faxed second request to [employer] [phone] with notation second request. Fwd to Lexy Pérez when received. Deanna Hyatt LPN [facility]-20[facility]24 Miscellaneous Notes* Telephone Encounter - Deanna Hyatt LPN - 04/14/2024 6:01 PM EDT Compliance report not received. Faxed second request to [employer] [phone] with notation second request. Fwd to Lexy Pérez when received. Deanna Hyatt LPN * Telephone Encounter - Deanna Hyatt LPN - 04/01/2024 5:43 PM EDT Faxed four week download request CPAP to [employer] [phone]. Deanna Hyatt LPN documented in this encounterAultman [facility]06-[facility]24 Telephone encounter Note * Telephone Encounter - Clarice Luciano RN - 04/14/2024 3:01 PM EDT The patient has been identified by name and date of : Yes Caregiver verified no other encounters exist for this prescription request: Yes Caregiver confirmed with patient/requestor that no other refills are due, in the near future, with this provider at this time: Yes The last office visit in the department: 04/12/2024 Does the patient have a future office visit with this provider/department: Yes 06/06/2024 Requested Prescriptions Pending Prescriptions Disp Refills levothyroxine (SYNTHROID) 50 mcg tablet 30 tablet 5 Sig: Take 1 tablet by mouth once daily. Take on empty stomach. For Thyroid. celecoxib (CELEBREX) 200 mg capsule 30 capsule 2 Sig: Take 1 capsule by mouth once daily. Clarice Luciano RN April 14, 2024 3:01 PM [facility]06-20-2024 Miscellaneous Notes* Telephone Encounter - Clarice Luciano RN - 04/14/2024 3:01 PM EDT The patient has been identified by name and date of : Yes Caregiver verified no other encounters exist for this prescription request: Yes Caregiver confirmed with patient/requestor that no other refills are due, in the near future, with this provider at this time: Yes The last office visit in the department: 04/12/2024 Does the patient have a future office visit with this provider/department: Yes 06/06/2024 Requested Prescriptions Pending Prescriptions Disp Refills levothyroxine (SYNTHROID) 50 mcg tablet 30 tablet 5 Sig: Take 1 tablet by mouth once daily. Take on empty stomach. For Thyroid. celecoxib (CELEBREX) 200 mg capsule 30 capsule 2 Sig: Take 1 capsule by mouth once daily. Clarice Luciano RN April 14, 2024 3:01 PM documented in this encounterA[facility]06-[facility] Instructions* Patient Instructions* Odalys Brock APRN.METAL PICKLING EQUIPMENT OPERATOR - 04/12/2024 3:01 PM EDT Stop Jardiance (empagliflozin) 4 days before surgery -- last dose 04/17/24). The morning of surgery, only take 16 units of your insulin. Hold ASA 1 week prior to surgery. documented in this encounterA[facility]06-[facility] History and physical note * Odalys Brock APRN.ZIGGY - 04/12/2024 2:16 PM EDT HISTORY AND PHYSICAL EXAMINATION SUBJECTIVE 59 year old female is here for consult to determine preoperative surgical clearance requested by Dr. Echeverria for anticipated surgery: left shoulder arthroscopy with subacromial decompression, distal clavicle excision and rotator cuff repair and bicep tenotomy, scheduled for 04/21/2024 Patient's history of surgical problem: none. Hx of previous anesthesia problems: No. Family hx of anesthesia problems: No. Current signs of infection: no. Chest pain/ hx Cardiac complications: No. Shortness of breath: No. Hx sleep apnea: Yes. Wears cpap. Hx of clotting issues: No. Current bleeding or bruising tendencies: Yes. Hx GERD Yes. On anticoagulant medication: No. On ASA 81 mg. HISTORIES FAMILY HISTORY Problem Relation Age of Onset Arthritis Mother Diabetes Mother Hypertension Mother Hyperlipidemia Mother PAST MEDICAL HISTORY Diagnosis Date Arthralgia Chronic back pain Depression Developmental delay Diabetic neuropathy (HCC) feet DM (diabetes mellitus) (HCC) Hypertension Hypothyroid Mental disorder Snoring PAST SURGICAL HISTORY Procedure Laterality Date COLONOSCOPY FLX DX W/COLLJ SPEC WHEN PFRMD 09/23/2018 Colonoscopy HYSTERECTOMY N/A XCAPSL CTRC RMVL INSJ IO LENS PROSTH CPLX WO ECP Social History Tobacco Use Smoking status: Never Smokeless tobacco: Never Vaping Use Vaping Use: Never used Substance Use Topics Alcohol use: No Drug use: No ACTIVE PROBLEM LIST Hypothyroidism Insomnia Vitamin B 12 Deficiency Depression Essential Hypertension, Benign Hyperlipemia Developmental Delay Severe Sleep Apnea Cervical Radiculopathy Type 2 Diabetes Mellitus With Diabetic Neuropathy (Hcc) Microalbuminuria Urge Incontinence Current Outpatient Medications Medication Sig Dispense Refill chlorthalidone (HYGROTON) 25 mg tablet Take 1 tablet by mouth once daily. 30 tablet 11 CPAP/BIPAP/OTHER autoCPAP 10-20 cmH2O DME [employer] 1 Each 0 Insulin [place], Disposable, (BD ULTRA-FINE ROSALIE PEN NEEDLE) 32 gauge x 5/32 Use to inject insulinonce daily as directed 100 Each 5 nystatin (MYCOSTATIN) cream Apply 1 application to affected area two times a day. On left foot 45 g0 insulin glargine 100 unit/mL (3 mL) Inject 32 Units subcutaneously every morning. 5 Each 5 DULoxetine (CYMBALTA) 60 mg capsule Take 1 capsule by mouth once daily. 90 capsule 1 celecoxib (CELEBREX) 200 mg capsule Take 1 capsule by mouth once daily. 30 capsule 2 empagliflozin (JARDIANCE) 25 mg tablet Take 1 tablet by mouth once daily. 90 tablet 1 metFORMIN ER (GLUCOPHAGE XR) 500 mg 24 hr tablet Take 2 tablet by mouth twice daily with food. 360 tablet 1 atenolol (TENORMIN) 100 mg tablet Take 1 tablet by mouth once daily. 90 tablet 1 atorvastatin (LIPITOR) 20 mg tablet Take 1 tablet by mouth daily at bedtime. For cholesterol. 90 tablet 1 SITagliptin phosphate (JANUVIA) 100 mg tablet Take 1 tablet by mouth once daily. 90 tablet 1 estradiol (ESTRACE) 1 mg tablet Take 1 tablet by mouth once daily. 90 tablet 1 pioglitazone (ACTOS) 15 mg tablet Take 1 tablet by mouth once daily. 90 tablet 1 levothyroxine (SYNTHROID) 50 mcg tablet Take 1 tablet by mouth once daily. Take on empty stomach. For Thyroid. 30 tablet 5 lisinopril (ZESTRIL) 40 mg tablet Take 1 tablet by mouth once daily. 90 tablet 3 cyanocobalamin (VITAMIN B-12) 1,000 mcg tab Take 1 tablet by mouth once daily. 90 tablet 3 multivitamin-ferrous fumarate-folic acid (CENTRUM) Take 1 tablet by mouth once daily. 90 tablet 3 aspirin, enteric coated (ASPIRIN, ENTERIC COATED) 81 mg EC tablet Take 1 tablet by mouth once daily. (self-started) 90 tablet 3 omeprazole (PRILOSEC) 20 mg capsule Take 2 capsules by mouth once daily. 60 capsule 11 Lancets lancets One Touch Test blood sugar(s) 2 times daily. Dx: Type 2 DM - Controlled E11.9 Insulin: Yes 200 Each 3 sertraline (ZOLOFT) 50 mg tablet Take 1 tablet by mouth once daily. 30 tablet 2 blood sugar diagnostic (BLOOD GLUCOSE TEST) test strip Test blood sugar(s) 2 times daily. Dx: Type 2 DM - Controlled E11.9 Insulin: Yes 100 Strip 11 blood sugar diagnostic (BLOOD GLUCOSE TEST) test strip Test blood sugar(s) 2 times daily. Dx: Type 2 DM - Uncontrolled E11.65 Insulin: Yes 50 Strip 11 hydrOXYzine HCl (ATARAX) 25 mg tablet Take 1 tablet by mouth every 6 hours as needed for anxiety. 360 tablet 1 Cholecalciferol, Vitamin D3, (VITAMIN D-3) 50 mcg (2,000 unit) cap Take 1 capsule by mouth once daily. 90 capsule 0 COMPOUNDED PRESCRIPTION Diabetic shoes 1 Each 0 triamcinolone acetonide (KENALOG) 0.1 % ointment Apply to affected area twice daily. X 2 weeks; then take a break X 1 week. If still present, then restart X 2 more weeks. 30 g 1 No current facility-administered medications for this visit. Allergies: Amoxicillin Other: See Comments Bleach (Sodium Hypo* Hives Penicillins Other: See Comments Sulfa (Sulfonamide * Rash Comment:& dry heaves. REVIEW OF SYSTEMS: General: No weight loss, malaise or fevers. Neuro: Denies: No Hx of stroke or seizures Parkinson's Disease Multiple Sclerosis Cerebral Palsy Respiratory: No history of current cough or dyspnea, or pneumonia in the past 6 weeks. No history of respiratory/pulmonary symptoms or problems. + HIMANSHU - uses CPAP. Cardiovascular: Negative for: Recent [place], Arrhythmia, Afib/Aflutter, Anticoagulation therapy, CHF, DVT/PE, Valvular Heart Disease. + HTN, hyperlipidemia. GI: No history of GI symptoms or problems. No history of esophageal varices, recent ascites, or ETOH greater than 2 drinks per day. : No history of UTI in past 6 weeks. No history of renal failure. Not currently on or requiring dialysis. No history of symptoms or problems. 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 : s/p hyster. Endocrine: Diabetes Mellitus on insulin, Diabetes Mellitus on oral agent, Hypothyroidism Hematology: Easy bruising / bleeding, .+ ASA 81 mg. No hx of blood transfusion. Oncology: No history of CA metastasis, chemo within 30 days, or radiotherapy within 90 days. Has not lost 10% of body wt in 6 months. No history of oncological symptoms or problems. Psych: controlled depression/anxiety. Musculoskeletal: Left shoulder pain. Skin: couple of superficial open areas on the right arm. PHYSICAL EXAM: VITALS: BP 122/74 Pulse 62 Resp 16 Wt 82.1 kg (181 lb) SpO2 96% BMI 35.35 kg/m General Appearance: Well appearing, alert, in no acute distress, well-hydrated, well nourished.. Skin: Skin color, texture, turgor normal, no suspicious rashes or lesions. Few superficial open areas on the right forearm. Head: Normocephalic, no masses, lesions, tenderness or abnormalities. Eyes: Anicteric sclera. Pupils are equally round and reactive to light. Extraocular movements are intact. . Ears: External ears normal, canals clear, Normal TMs bilaterally. Oropharynx: Lips, mucosa, and tongue normal, teeth and gums normal, oropharynx normal. Neck: Supple, no adenopathy; thyroid symmetric, normal size, no bruits. Lungs: Lungs clear to auscultation. No wheezing, rhonchi, rales.. Heart: RRR without murmur, gallop, or rubs. No ectopy. Abdomen: Abdomen soft, non-tender. Bowel sounds normal. No masses, organomegaly. Extremities: No deformities, edema, skin discoloration, clubbing or cyanosis. Good capillary refill. . Neurologic: Gait normal. Diagnostic tests reviewed for today's visit: Most recent labs Clinical Risk Factors for Possible Cardiac Complications: Insulin therapy for Diabetes Mellitus Patient is scheduled for a intermediate-risk procedure. FUNCTIONAL STATUS: Climb a flight of stairs or walk up a hill (5.50 METs) Do heavy work around the house, such as scrubbing floors, lifting or moving heavy furniture (8.00 METs) Functional Class (NYHA): II-III KEENAN CARDIAC RISK CALCULATOR - 0.11 Patient has the following medical conditions which may affect aki-operative course Diabetes - stable on current regimen. HTN - Well controlled Hyperlipidemia HIMANSHU - Patient is using CPAP/BIPAP ASSESSMENT/PLAN: 1. Preop examination - ICD9: V72.84, ICD10: Z01.818 (primary diagnosis) Pt is acceptable risk to procedure with moderate risk procedure. Today's note and clearance form will be faxed back to Dr. Echeverria's office. Thank you for allowing us to participate in Arcenio's care. Please let us know if we can be of any further assistance. Instructions Given to Patient: Stop Jardiance (empagliflozin) 4 days before surgery -- last dose 04/17/24). The morning of surgery, only take 16 units of your insulin. Hold ASA 1 week prior to surgery. Pt and caregiver are requesting admission to rehab facility after discharge from hospital d/t patient lives alone. Please consider inpatient rehab after discharge. CONSULTS: Patient does not require consults for optimization at this time. 2. Acute pain of left shoulder - ICD9: 719.41, ICD10: M25.512 Per ortho 3. Open wound of skin - ICD9: 879.8, ICD10: T14.8XXA Start bactroban. - MUPIROCIN 2 % TOPICAL OINTMENT Discussed treatment plan and patient voices understanding. Patient's questions answered appropriately. Medications and potential side effects were discussed and patient voices understanding. Return to the office as scheduled or as needed for worsening/no improvement. Odalys Brock APRN.METAL PICKLING EQUIPMENT OPERATOR [facility]06-18-2024 History and physical note* Odayls Brock APRN.METAL PICKLING EQUIPMENT OPERATOR - 04/12/2024 2:16 PM EDT HISTORY AND PHYSICAL EXAMINATION SUBJECTIVE 59 year old female is here for consult to determine preoperative surgical clearance requested by Dr. Echeverria for anticipated surgery: left shoulder arthroscopy with subacromial decompression, distal clavicle excision and rotator cuff repair and bicep tenotomy, scheduled for 04/21/2024 Patient's history of surgical problem: none. Hx of previous anesthesia problems: No. Family hx of anesthesia problems: No. Current signs of infection: no. Chest pain/ hx Cardiac complications: No. Shortness of breath: No. Hx sleep apnea: Yes. Wears cpap. Hx of clotting issues: No. Current bleeding or bruising tendencies: Yes. Hx GERD Yes. On anticoagulant medication: No. On ASA 81 mg. HISTORIES FAMILY HISTORY Problem Relation Age of Onset Arthritis Mother Diabetes Mother Hypertension Mother Hyperlipidemia Mother PAST MEDICAL HISTORY Diagnosis Date Arthralgia Chronic back pain Depression Developmental delay Diabetic neuropathy (HCC) feet DM (diabetes mellitus) (HCC) Hypertension Hypothyroid Mental disorder Snoring PAST SURGICAL HISTORY Procedure Laterality Date COLONOSCOPY FLX DX W/COLLJ SPEC WHEN PFRMD 09/23/2018 Colonoscopy HYSTERECTOMY N/A XCAPSL CTRC RMVL INSJ IO LENS PROSTH CPLX WO ECP Social History Tobacco Use Smoking status: Never Smokeless tobacco: Never Vaping Use Vaping Use: Never used Substance Use Topics Alcohol use: No Drug use: No ACTIVE PROBLEM LIST Hypothyroidism Insomnia Vitamin B 12 Deficiency Depression Essential Hypertension, Benign Hyperlipemia Developmental Delay Severe Sleep Apnea Cervical Radiculopathy Type 2 Diabetes Mellitus With Diabetic Neuropathy (Hcc) Microalbuminuria Urge Incontinence Current Outpatient Medications Medication Sig Dispense Refill chlorthalidone (HYGROTON) 25 mg tablet Take 1 tablet by mouth once daily. 30 tablet 11 CPAP/BIPAP/OTHER autoCPAP 10-20 cmH2O DME [employer] 1 Each 0 Insulin [place], Disposable, (BD ULTRA-FINE ROSALIE PEN NEEDLE) 32 gauge x 5/32 Use to inject insulinonce daily as directed 100 Each 5 nystatin (MYCOSTATIN) cream Apply 1 application to affected area two times a day. On left foot 45 g0 insulin glargine 100 unit/mL (3 mL) Inject 32 Units subcutaneously every morning. 5 Each 5 DULoxetine (CYMBALTA) 60 mg capsule Take 1 capsule by mouth once daily. 90 capsule 1 celecoxib (CELEBREX) 200 mg capsule Take 1 capsule by mouth once daily. 30 capsule 2 empagliflozin (JARDIANCE) 25 mg tablet Take 1 tablet by mouth once daily. 90 tablet 1 metFORMIN ER (GLUCOPHAGE XR) 500 mg 24 hr tablet Take 2 tablet by mouth twice daily with food. 360 tablet 1 atenolol (TENORMIN) 100 mg tablet Take 1 tablet by mouth once daily. 90 tablet 1 atorvastatin (LIPITOR) 20 mg tablet Take 1 tablet by mouth daily at bedtime. For cholesterol. 90 tablet 1 SITagliptin phosphate (JANUVIA) 100 mg tablet Take 1 tablet by mouth once daily. 90 tablet 1 estradiol (ESTRACE) 1 mg tablet Take 1 tablet by mouth once daily. 90 tablet 1 pioglitazone (ACTOS) 15 mg tablet Take 1 tablet by mouth once daily. 90 tablet 1 levothyroxine (SYNTHROID) 50 mcg tablet Take 1 tablet by mouth once daily. Take on empty stomach. For Thyroid. 30 tablet 5 lisinopril (ZESTRIL) 40 mg tablet Take 1 tablet by mouth once daily. 90 tablet 3 cyanocobalamin (VITAMIN B-12) 1,000 mcg tab Take 1 tablet by mouth once daily. 90 tablet 3 multivitamin-ferrous fumarate-folic acid (CENTRUM) Take 1 tablet by mouth once daily. 90 tablet 3 aspirin, enteric coated (ASPIRIN, ENTERIC COATED) 81 mg EC tablet Take 1 tablet by mouth once daily. (self-started) 90 tablet 3 omeprazole (PRILOSEC) 20 mg capsule Take 2 capsules by mouth once daily. 60 capsule 11 Lancets lancets One Touch Test blood sugar(s) 2 times daily. Dx: Type 2 DM - Controlled E11.9 Insulin: Yes 200 Each 3 sertraline (ZOLOFT) 50 mg tablet Take 1 tablet by mouth once daily. 30 tablet 2 blood sugar diagnostic (BLOOD GLUCOSE TEST) test strip Test blood sugar(s) 2 times daily. Dx: Type 2 DM - Controlled E11.9 Insulin: Yes 100 Strip 11 blood sugar diagnostic (BLOOD GLUCOSE TEST) test strip Test blood sugar(s) 2 times daily. Dx: Type 2 DM - Uncontrolled E11.65 Insulin: Yes 50 Strip 11 hydrOXYzine HCl (ATARAX) 25 mg tablet Take 1 tablet by mouth every 6 hours as needed for anxiety. 360 tablet 1 Cholecalciferol, Vitamin D3, (VITAMIN D-3) 50 mcg (2,000 unit) cap Take 1 capsule by mouth once daily. 90 capsule 0 COMPOUNDED PRESCRIPTION Diabetic shoes 1 Each 0 triamcinolone acetonide (KENALOG) 0.1 % ointment Apply to affected area twice daily. X 2 weeks; then take a break X 1 week. If still present, then restart X 2 more weeks. 30 g 1 No current facility-administered medications for this visit. Allergies: Amoxicillin Other: See Comments Bleach (Sodium Hypo* Hives Penicillins Other: See Comments Sulfa (Sulfonamide * Rash Comment:& dry heaves. REVIEW OF SYSTEMS: General: No weight loss, malaise or fevers. Neuro: Denies: No Hx of stroke or seizures Parkinson's Disease Multiple Sclerosis Cerebral Palsy Respiratory: No history of current cough or dyspnea, or pneumonia in the past 6 weeks. No history of respiratory/pulmonary symptoms or problems. + HIMANSHU - uses CPAP. Cardiovascular: Negative for: Recent [place], Arrhythmia, Afib/Aflutter, Anticoagulation therapy, CHF, DVT/PE, Valvular Heart Disease. + HTN, hyperlipidemia. GI: No history of GI symptoms or problems. No history of esophageal varices, recent ascites, or ETOH greater than 2 drinks per day. : No history of UTI in past 6 weeks. No history of renal failure. Not currently on or requiring dialysis. No history of symptoms or problems. 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 : s/p hyster. Endocrine: Diabetes Mellitus on insulin, Diabetes Mellitus on oral agent, Hypothyroidism Hematology: Easy bruising / bleeding, .+ ASA 81 mg. No hx of blood transfusion. Oncology: No history of CA metastasis, chemo within 30 days, or radiotherapy within 90 days. Has not lost 10% of body wt in 6 months. No history of oncological symptoms or problems. Psych: controlled depression/anxiety. Musculoskeletal: Left shoulder pain. Skin: couple of superficial open areas on the right arm. PHYSICAL EXAM: VITALS: BP 122/74 Pulse 62 Resp 16 Wt 82.1 kg (181 lb) SpO2 96% BMI 35.35 kg/m General Appearance: Well appearing, alert, in no acute distress, well-hydrated, well nourished.. Skin: Skin color, texture, turgor normal, no suspicious rashes or lesions. Few superficial open areas on the right forearm. Head: Normocephalic, no masses, lesions, tenderness or abnormalities. Eyes: Anicteric sclera. Pupils are equally round and reactive to light. Extraocular movements are intact. . Ears: External ears normal, canals clear, Normal TMs bilaterally. Oropharynx: Lips, mucosa, and tongue normal, teeth and gums normal, oropharynx normal. Neck: Supple, no adenopathy; thyroid symmetric, normal size, no bruits. Lungs: Lungs clear to auscultation. No wheezing, rhonchi, rales.. Heart: RRR without murmur, gallop, or rubs. No ectopy. Abdomen: Abdomen soft, non-tender. Bowel sounds normal. No masses, organomegaly. Extremities: No deformities, edema, skin discoloration, clubbing or cyanosis. Good capillary refill. . Neurologic: Gait normal. Diagnostic tests reviewed for today's visit: Most recent labs Clinical Risk Factors for Possible Cardiac Complications: Insulin therapy for Diabetes Mellitus Patient is scheduled for a intermediate-risk procedure. FUNCTIONAL STATUS: Climb a flight of stairs or walk up a hill (5.50 METs) Do heavy work around the house, such as scrubbing floors, lifting or moving heavy furniture (8.00 METs) Functional Class (NYHA): II-III KEENAN CARDIAC RISK CALCULATOR - 0.11 Patient has the following medical conditions which may affect aki-operative course Diabetes - stable on current regimen. HTN - Well controlled Hyperlipidemia HIMANSHU - Patient is using CPAP/BIPAP ASSESSMENT/PLAN: 1. Preop examination - ICD9: V72.84, ICD10: Z01.818 (primary diagnosis) Pt is acceptable risk to procedure with moderate risk procedure. Today's note and clearance form will be faxed back to Dr. Echeverria's office. Thank you for allowing us to participate in Arcenio's care. Please let us know if we can be of any further assistance. Instructions Given to Patient: Stop Jardiance (empagliflozin) 4 days before surgery -- last dose 04/17/24). The morning of surgery, only take 16 units of your insulin. Hold ASA 1 week prior to surgery. Pt and caregiver are requesting admission to rehab facility after discharge from hospital d/t patient lives alone. Please consider inpatient rehab after discharge. CONSULTS: Patient does not require consults for optimization at this time. 2. Acute pain of left shoulder - ICD9: 719.41, ICD10: M25.512 Per ortho 3. Open wound of skin - ICD9: 879.8, ICD10: T14.8XXA Start bactroban. - MUPIROCIN 2 % TOPICAL OINTMENT Discussed treatment plan and patient voices understanding. Patient's questions answered appropriately. Medications and potential side effects were discussed and patient voices understanding. Return to the office as scheduled or as needed for worsening/no improvement. Odalys Brock APRN.METAL PICKLING EQUIPMENT OPERATOR documented in this encounterA[facility] Telephone encounter Note * Telephone Encounter - Deanna Hyatt LPN - 04/01/2024 5:43 PM EDT Faxed four week download request CPAP to [employer] [phone]. Deanna Hyatt LPN [facility]05-13-2024 Instructions* Patient Instructions* Adelaide Donovan APRN.ANKLE PATCH MOLDER - 03/07/2024 4:12 PM EDT 1) Chlorthalidone 25 mg daily. 2) Use Vicks vapor rub on feet 2 x day then apply sock 3) Follow up in 1 month *Please fax instruction to Shai* documented in this encounterA[facility]man [facility]05-13-[facility]24 History of Present illness Narrative* Adelaide Donovan APRN.CNS - 03/07/2024 3:58 PM EDT This is a 59 year old female who presents today with: Patient presents with: Hypertension: Follow up HISTORY OF PRESENT ILLNESS: Arcenio Rand is a 59 year old female. Patient presents with: Hypertension: Follow up HTN: Patient is compliant with meds Yes Monitors bp at home: Yes. Denies side effects: No. Chest pain: No. Dyspnea: No. Edema: No. Palpitations: No. Syncope: No. Headache: Yes. New Dizziness: No. Just came from [facility]. Shoulder is really soree. BP yesterday at home she thinks was about 160/80 PAST MEDICAL HISTORY: PAST MEDICAL HISTORY Diagnosis Date Arthralgia Chronic back pain Depression Developmental delay Diabetic neuropathy (HCC) feet DM (diabetes mellitus) (HCC) Hypertension Hypothyroid Mental disorder Snoring PAST SURGICAL HISTORY Procedure Laterality Date COLONOSCOPY FLX DX W/COLLJ SPEC WHEN PFRMD 09/23/2018 Colonoscopy HYSTERECTOMY N/A XCAPSL CTRC RMVL INSJ IO LENS PROSTH CPLX WO ECP ALLERGIES Amoxicillin, Bleach (Sodium Hypochlorite), Penicillins, and Sulfa (Sulfonamide Antibiotics) MEDICATIONS Current Outpatient Medications Medication Sig insulin glargine 100 unit/mL (3 mL) Inject 32 Units subcutaneously every morning. DULoxetine (CYMBALTA) 60 mg capsule Take 1 capsule by mouth once daily. celecoxib (CELEBREX) 200 mg capsule Take 1 capsule by mouth once daily. empagliflozin (JARDIANCE) 25 mg tablet Take 1 tablet by mouth once daily. metFORMIN ER (GLUCOPHAGE XR) 500 mg 24 hr tablet Take 2 tablet by mouth twice daily with food. atenolol (TENORMIN) 100 mg tablet Take 1 tablet by mouth once daily. atorvastatin (LIPITOR) 20 mg tablet Take 1 tablet by mouth daily at bedtime. For cholesterol. SITagliptin phosphate (JANUVIA) 100 mg tablet Take 1 tablet by mouth once daily. estradiol (ESTRACE) 1 mg tablet Take 1 tablet by mouth once daily. pioglitazone (ACTOS) 15 mg tablet Take 1 tablet by mouth once daily. nystatin (MYCOSTATIN) cream Apply 1 application to affected area two times a day. levothyroxine (SYNTHROID) 50 mcg tablet Take 1 tablet by mouth once daily. Take on empty stomach. For Thyroid. lisinopril (ZESTRIL) 40 mg tablet Take 1 tablet by mouth once daily. cyanocobalamin (VITAMIN B-12) 1,000 mcg tab Take 1 tablet by mouth once daily. multivitamin-ferrous fumarate-folic acid (CENTRUM) Take 1 tablet by mouth once daily. aspirin, enteric coated (ASPIRIN, ENTERIC COATED) 81 mg EC tablet Take 1 tablet by mouth once daily. (self-started) omeprazole (PRILOSEC) 20 mg capsule Take 2 capsules by mouth once daily. cyclobenzaprine (FLEXERIL) 5 mg tablet Take 1 tablet by mouth at bedtime as needed. triamcinolone acetonide (KENALOG) 0.1 % ointment Apply to affected area twice daily. X 2 weeks; then take a break X 1 week. If still present, then restart X 2 more weeks. sertraline (ZOLOFT) 50 mg tablet Take 1 tablet by mouth once daily. hydrOXYzine HCl (ATARAX) 25 mg tablet Take 1 tablet by mouth every 6 hours as needed for anxiety. Cholecalciferol, Vitamin D3, (VITAMIN D-3) 50 mcg (2,000 unit) cap Take 1 capsule by mouth once daily. CPAP/BIPAP/OTHER autoCPAP 10-20 cmH2O DME [employer] Insulin [place], Disposable, (BD ULTRA-FINE ROSALIE PEN NEEDLE) 32 gauge x Use to inject insulinonce daily as directed nystatin (MYCOSTATIN) cream Apply 1 application to affected area two times a day. On left foot Blood-Glucose Sensor (FREESTYLE RADHA 3 SENSOR) brice Apply new sensor every fourteen (14) days to upper arm. Lancets lancets One Touch Test blood sugar(s) 2 times daily. Dx: Type 2 DM - Controlled E11.9 Insulin: Yes blood sugar diagnostic (BLOOD GLUCOSE TEST) test strip Test blood sugar(s) 2 times daily. Dx: Type 2 DM - Controlled E11.9 Insulin: Yes blood sugar diagnostic (BLOOD GLUCOSE TEST) test strip Test blood sugar(s) 2 times daily. Dx: Type 2 DM - Uncontrolled E11.65 Insulin: Yes CPAP Pt device on recall list. Given findings on eval, would like pt to be changed to an AutoPAP device with humidity set at 10-16 cmH2O. Please provide download in 4 weeks. Also with mask leaks and please try to fit with dreamwear under nose FFM. COMPOUNDED PRESCRIPTION Diabetic shoes No current facility-administered medications for this visit. FAMILY HISTORY Problem Relation Age of Onset Arthritis Mother Diabetes Mother Hypertension Mother Hyperlipidemia Mother Social History Tobacco Use Smoking status: Never Smokeless tobacco: Never Vaping Use Vaping Use: Never used Substance Use Topics Alcohol use: No Drug use: No EXAM: BP 148/80 Pulse 65 Wt 84.6 kg (186 lb 9.6 oz) SpO2 97% BMI 36.44 kg/m PHYSICAL EXAM: Physical Exam Vitals reviewed. Constitutional: Appearance: Normal appearance. HENT: Head: Normocephalic. Cardiovascular: Rate and Rhythm: Normal rate and regular rhythm. Pulmonary: Effort: Pulmonary effort is normal. Breath sounds: Normal breath sounds. Musculoskeletal: Comments: Pain in left shoulder, just started PT today Skin: Comments: Left foot scaling and granulating. One tiny slit of open area at base of third toe. Neurological: Mental Status: She is alert. LABS: ASSESSMENT/PLAN: 1. Essential hypertension, benign - ICD9: 401.1, ICD10: I10 (primary diagnosis) - Uncontrolled - Recommend home blood pressure monitoring, to bring results to next visit - Encouraged sodium restriction, DASH or Mediterranean diet - Recommend regular aerobic exercise - CHLORTHALIDONE 25 MG TABLET 2. Tinea pedis of left foot - ICD9: 110.4, ICD10: B35.3 - Will try Vicks vapor rub 2 x day Discussed treatment plan and patient voices understanding. Patient's questions answered appropriately. Medications and potential side effects were discussed and patient voices understanding. Return to the office as scheduled or as needed for worsening/no improvement. Adelaide Donovan APRN.ANKLE PATCH MOLDER documented in this encounterA[facility]05-06-[facility] History of Present illness Narrative* Chyna Pérez, SUE.METAL PICKLING EQUIPMENT OPERATOR - 02/29/2024 2:30 PM EDT Images from the original note were not included. [facility] Follow up/ Established patient visit Date of last visit : 01/20/2022 ASSESSMENT/PLAN: 1. HIMANSHU (obstructive sleep apnea) - ICD9: 327.23, ICD10: G47.33 (primary diagnosis) 2. Class 2 obesity with body mass index (BMI) of 38.0 to 38.9 in adult, unspecified obesity type, unspecified whether serious comorbidity present - ICD9: 278.00, V85.38, ICD10: E66.9, Z68.38 Patient doing well on PAP as above. AHI controlled per objective download and both subjective and objective history support compliance. No changes in pressure settings at this time. Encouraged compliance. Reminded to clean and replace equipment regularly. Showed pt how to adjust humidifier with aidof WWW. Follow up 9 months or sooner prn. Ranjeet Shields MD Here for follow up for HIMANSHU on CPAP. Accompanied by baldo Machado. Has to refill the humidification chamber in the middle of the night, dry mouth, morning headaches, unrefreshing sleep. On CPAP 12 cmH2O.Dream Station 2 which was replaced in recall. DME [employer]. BP has been increasing. No longer having ni ghtmares. PRIOR SLEEP STUDIES: 03/16/19 [facility]--AHI 41.5 04/04/19 PAP titration at [facility]--recommended CPAP 12 cmH2O SLEEP APNEA Sleep apnea type : HIMANSHU, Most Recent Apnea-Hypopnea Index (AHI): 41.5 Treatment : PAP therapy DME: [employer] PAP History: Uses CPAP for 7 nights per week. Current PAP settin cm H2O. Reviewed objective PAP compliance data: not available at the visit, I was unable to get into the clinical view of her machine Mask type: hybrid full face mask Mask issues: none There is a perceived benefit by the patient: no nightmares SLEEP HYGIENE QUESTIONS: Bedtime : 9 pm Wake up Time : 6 am Time it takes to fall sleep : 30-60 min Number of times patient wakes up per night : 3x Reason (s) why patient wakes up during the night : urination Estimated total sleep time ( in a 24 hour period of time) : 4 Naps : No PATIENT-ENTERED QUESTIONNAIRE SLEEP SCORES SLEEP RELATED ROS Review of Systems Neurological: Positive for headaches (including morning headaches). ALLERGIES Allergen Reactions Amoxicillin Other: See Comments Bleach (Sodium Hypo* Hives Penicillins Other: See Comments Sulfa (Sulfonamide * Rash & dry heaves. CURRENT MEDICATIONS: Insulin [place], Disposable, (BD ULTRA-FINE ROSALIE PEN NEEDLE) 32 gauge x 5/32 Use to inject insulinonce daily as directed nystatin (MYCOSTATIN) cream Apply 1 application to affected area two times a day. On left foot insulin glargine 100 unit/mL (3 mL) Inject 32 Units subcutaneously every morning. DULoxetine (CYMBALTA) 60 mg capsule Take 1 capsule by mouth once daily. celecoxib (CELEBREX) 200 mg capsule Take 1 capsule by mouth once daily. empagliflozin (JARDIANCE) 25 mg tablet Take 1 tablet by mouth once daily. metFORMIN ER (GLUCOPHAGE XR) 500 mg 24 hr tablet Take 2 tablet by mouth twice daily with food. atenolol (TENORMIN) 100 mg tablet Take 1 tablet by mouth once daily. atorvastatin (LIPITOR) 20 mg tablet Take 1 tablet by mouth daily at bedtime. For cholesterol. SITagliptin phosphate (JANUVIA) 100 mg tablet Take 1 tablet by mouth once daily. estradiol (ESTRACE) 1 mg tablet Take 1 tablet by mouth once daily. pioglitazone (ACTOS) 15 mg tablet Take 1 tablet by mouth once daily. nystatin (MYCOSTATIN) cream Apply 1 application to affected area two times a day. levothyroxine (SYNTHROID) 50 mcg tablet Take 1 tablet by mouth once daily. Take on empty stomach. For Thyroid. lisinopril (ZESTRIL) 40 mg tablet Take 1 tablet by mouth once daily. Blood-Glucose Sensor (FREESTYLE RADHA 3 SENSOR) brice Apply new sensor every fourteen (14) days to upper arm. cyanocobalamin (VITAMIN B-12) 1,000 mcg tab Take 1 tablet by mouth once daily. multivitamin-ferrous fumarate-folic acid (CENTRUM) Take 1 tablet by mouth once daily. aspirin, enteric coated (ASPIRIN, ENTERIC COATED) 81 mg EC tablet Take 1 tablet by mouth once daily. (self-started) omeprazole (PRILOSEC) 20 mg capsule Take 2 capsules by mouth once daily. Lancets lancets One Touch Test blood sugar(s) 2 times daily. Dx: Type 2 DM - Controlled E11.9 Insulin: Yes cyclobenzaprine (FLEXERIL) 5 mg tablet Take 1 tablet by mouth at bedtime as needed. triamcinolone acetonide (KENALOG) 0.1 % ointment Apply to affected area twice daily. X 2 weeks; then take a break X 1 week. If still present, then restart X 2 more weeks. blood sugar diagnostic (BLOOD GLUCOSE TEST) test strip Test blood sugar(s) 2 times daily. Dx: Type 2 DM - Controlled E11.9 Insulin: Yes blood sugar diagnostic (BLOOD GLUCOSE TEST) test strip Test blood sugar(s) 2 times daily. Dx: Type 2 DM - Uncontrolled E11.65 Insulin: Yes CPAP Pt device on recall list. Given findings on eval, would like pt to be changed to an AutoPAP device with humidity set at 10-16 cmH2O. Please provide download in 4 weeks. Also with mask leaks and please try to fit with dreamwear under nose FFM. hydrOXYzine HCl (ATARAX) 25 mg tablet Take 1 tablet by mouth every 6 hours as needed for anxiety. Cholecalciferol, Vitamin D3, (VITAMIN D-3) 50 mcg (2,000 unit) cap Take 1 capsule by mouth once daily. MULTIVITAMIN ORAL Take 1 tablet by mouth once daily. COMPOUNDED PRESCRIPTION Diabetic shoes sertraline (ZOLOFT) 50 mg tablet Take 1 tablet by mouth once daily. PHYSICAL EXAMINATION: Vital Signs: Pulse 66 Resp 18 Wt 86.5 kg (190 lb 9.6 oz) SpO2 100% BMI 37.22 kg/m PHYSICAL EXAM: General appearance: pleasant, NAD Mental status: alert and oriented, able to provide own history Constitutional: obese Skin: No visible rashes on exposed skin Neuro: No focal deficits observed, no tremors IMPRESSION: Himanshu (obstructive sleep apnea) Arcenio Rand is a delightful 59 year old female with severe HIMANSHU. She uses CPAP nightly but is now having morning headaches, rising BP which makes one wonder if the current pressure of 12 cmH2O iscontrolling her apnea. She likely has large mask leaks since she has to refill the water chamber inthe middle of the night. PMH of DM2, HLD, urge incontinence, hypothyroidism, depression, obesity, developmental delay. I was unable to gain access to the clinical menu of her Dream Station 2 today. PLAN: - Continue PAP Change setting from CPAP 12 to auto CPAP 10-20 cmH2O. DME [employer]. Get a download in 1month. Requested a mask fitting. - Remember to clean your mask and equipment regularly, as directed. - You should be eligible for new supplies approximately every 3-6 months, depending on your insurance coverage. Contact your Durable Medical Equipment (DME) company for new supplies as needed. Wt down 8 lbs in last yr Hoping to avoid another sleep study Follow up 3 mos Chyna Pérez APRN.METAL PICKLING EQUIPMENT OPERATOR documented in this encounterA[facility]04-25-2024 Telephone encounter Note * Telephone Encounter - Renetta Villa RN - 02/18/2024 8:26 AM EDT Patient has been identified by name and date of : Yes, Provider Dr Goodwin Date 02/18/24 Time 0829. Pharmacy phones for refill(s): Requested Prescriptions Pending Prescriptions Disp Refills Insulin [place], Disposable, (BD ULTRA-FINE ROSALIE PEN NEEDLE) 32 gauge x 100 Each 5 Sig: Use to inject insulin once daily as directed Date of last office visit in primary care: 02/15/2024 Date of next office visit in primary care: 03/14/2024 Please advise. Thank you. Renetta Villa RN. [facility]04-25-[facility] Miscellaneous Notes* Telephone Encounter - Renetta Villa RN - 02/18/2024 8:26 AM EDT Patient has been identified by name and date of : Yes, Provider Dr Goodwin Date 02/18/24 Time 0829. Pharmacy phones for refill(s): Requested Prescriptions Pending Prescriptions Disp Refills Insulin [place], Disposable, (BD ULTRA-FINE ROSALIE PEN NEEDLE) 32 gauge x 5/32 100 Each 5 Sig: Use to inject insulin once daily as directed Date of last office visit in primary care: 02/15/2024 Date of next office visit in primary care: 03/14/2024 Please advise. Thank you. Renetta Villa RN. documented in this encounterA[facility]04-22-2024 History of Present illness Narrative* Ranjeet Goodwin MD - 02/15/2024 1:57 PM EDT Patient presents with: Follow Up HPI: Patient presents today for office visit for follow up from [facility] on 02/09/24. Seen for injury to left shoulder after falling on it during workshop. States when she got up she tripped over a bag that got tangled in her feet. Complains of left shoulder and arm pain. Refers to a burning sensation. Limited range of motion. Having a hard time lifting her arm above her head. Has bruising to upper part of arm. No redness or swelling. Had a hx of biceps injury in the past. Pain goes down to her elbows. Ice/alternating with advil and using tylenol. No acute findings noted on X-ray. Referred to Ortho due to concerns with an acute rotator cuff injury. Bp yesterday was 130/80. Feels fine. Wants me to check her left foot. Has an area where skin peeled between her great toe and second toe. No fever or chills. Is uncomfortable. No red streask MEDICATIONS: Current Outpatient Medications Medication Sig insulin glargine 100 unit/mL (3 mL) Inject 32 Units subcutaneously every morning. DULoxetine (CYMBALTA) 60 mg capsule Take 1 capsule by mouth once daily. celecoxib (CELEBREX) 200 mg capsule Take 1 capsule by mouth once daily. empagliflozin (JARDIANCE) 25 mg tablet Take 1 tablet by mouth once daily. metFORMIN ER (GLUCOPHAGE XR) 500 mg 24 hr tablet Take 2 tablet by mouth twice daily with food. atenolol (TENORMIN) 100 mg tablet Take 1 tablet by mouth once daily. atorvastatin (LIPITOR) 20 mg tablet Take 1 tablet by mouth daily at bedtime. For cholesterol. SITagliptin phosphate (JANUVIA) 100 mg tablet Take 1 tablet by mouth once daily. estradiol (ESTRACE) 1 mg tablet Take 1 tablet by mouth once daily. pioglitazone (ACTOS) 15 mg tablet Take 1 tablet by mouth once daily. nystatin (MYCOSTATIN) cream Apply 1 application to affected area two times a day. levothyroxine (SYNTHROID) 50 mcg tablet Take 1 tablet by mouth once daily. Take on empty stomach. For Thyroid. lisinopril (ZESTRIL) 40 mg tablet Take 1 tablet by mouth once daily. Blood-Glucose Sensor (FREESTYLE RADHA 3 SENSOR) brice Apply new sensor every fourteen (14) days to upper arm. cyanocobalamin (VITAMIN B-12) 1,000 mcg tab Take 1 tablet by mouth once daily. multivitamin-ferrous fumarate-folic acid (CENTRUM) Take 1 tablet by mouth once daily. aspirin, enteric coated (ASPIRIN, ENTERIC COATED) 81 mg EC tablet Take 1 tablet by mouth once daily. (self-started) omeprazole (PRILOSEC) 20 mg capsule Take 2 capsules by mouth once daily. Insulin [place], Disposable, (BD ULTRA-FINE ROSALIE PEN NEEDLE) 32 gauge x 32 Use to inject insulinonce daily as directed Lancets lancets One Touch Test blood sugar(s) 2 times daily. Dx: Type 2 DM - Controlled E11.9 Insulin: Yes cyclobenzaprine (FLEXERIL) 5 mg tablet Take 1 tablet by mouth at bedtime as needed. triamcinolone acetonide (KENALOG) 0.1 % ointment Apply to affected area twice daily. X 2 weeks; then take a break X 1 week. If still present, then restart X 2 more weeks. sertraline (ZOLOFT) 50 mg tablet Take 1 tablet by mouth once daily. blood sugar diagnostic (BLOOD GLUCOSE TEST) test strip Test blood sugar(s) 2 times daily. Dx: Type 2 DM - Controlled E11.9 Insulin: Yes blood sugar diagnostic (BLOOD GLUCOSE TEST) test strip Test blood sugar(s) 2 times daily. Dx: Type 2 DM - Uncontrolled E11.65 Insulin: Yes CPAP Pt device on recall list. Given findings on eval, would like pt to be changed to an AutoPAP device with humidity set at 10-16 cmH2O. Please provide download in 4 weeks. Also with mask leaks and please try to fit with dreamwear under nose FFM. hydrOXYzine HCl (ATARAX) 25 mg tablet Take 1 tablet by mouth every 6 hours as needed for anxiety. Cholecalciferol, Vitamin D3, (VITAMIN D-3) 50 mcg (2,000 unit) cap Take 1 capsule by mouth once daily. MULTIVITAMIN ORAL Take 1 tablet by mouth once daily. COMPOUNDED PRESCRIPTION Diabetic shoes No current facility-administered medications for this visit. ALLERGIES: ALLERGIES Allergen Reactions Amoxicillin Other: See Comments Bleach (Sodium Hypo* Hives Penicillins Other: See Comments Sulfa (Sulfonamide * Rash & dry heaves. PAST MEDICAL HISTORY Diagnosis Date Arthralgia Chronic back pain Depression Developmental delay Diabetic neuropathy (HCC) feet DM (diabetes mellitus) (HCC) Hypertension Hypothyroid Mental disorder Snoring PAST SURGICAL HISTORY Procedure Laterality Date COLONOSCOPY FLX DX W/COLLJ SPEC WHEN PFRMD 09/23/2018 Colonoscopy HYSTERECTOMY N/A XCAPSL CTRC RMVL INSJ IO LENS PROSTH CPLX WO ECP FAMILY HISTORY Problem Relation Age of Onset Arthritis Mother Diabetes Mother Hypertension Mother Hyperlipidemia Mother Social History Tobacco Use Smoking status: Never Smokeless tobacco: Never Vaping Use Vaping Use: Never used Substance Use Topics Alcohol use: No Drug use: No Reviewed current medications, allergies, past medical history, surgical history, family history andsocial history today. REVIEW OF SYSTEMS All other reviewed and negative other than HPI. VITALS: BP 180/84 Pulse 67 Ht 152.4 cm (5') Wt 85.7 kg (189 lb) SpO2 98% BMI 36.91 kg/m Last 4 Encounter Wt Readings: Date: Wt: 02/09/2024 85.5 kg (188 lb 6.8 oz) 12/07/2023 86.6 kg (191 lb) 09/14/2023 87.1 kg (192 lb) 05/11/2023 89.8 kg (198 lb) PHYSICAL EXAMINATION: General appearance: Well appearing, alert, in no acute distress, well-hydrated, well nourished. Skin: skin has peeled between toes as above extending down on ball of foot. No signs of bacterial infection. No drainage. No surrounding redness or warmth. Shoulder: Location:left Redness: No. Warmth: No. Tenderness to palpation: across anterior shoulder with some bruising and hematoma. . Swelling: No. Range of motion: markedly reduced. Empty can test: - difficult to assess due to discomfort. ASSESSMENT/PLAN: 1. Acute pain of left shoulder - ICD9: 719.41, ICD10: M25.512 (primary diagnosis) - see ortho as was ordered. 2. Dermatitis - ICD9: 692.9, ICD10: L30.9 - discussed skin care of rash - follow up if symptoms persist or worsen. - no signs of needing oral antibiotic. Keep area dry. Discussed risks and benefits of new medication with the patient. Advised them to call if any side effects or questions. Red flags for re-assessment reviewed with patient in detail. Call if symptoms worsen at all or if not better in one to two weeks Reviewed diagnosis and treatment options in detail. Questions were answered. Patient expressed understanding of treatment plan. - NYSTATIN 100,000 UNIT/GRAM TOPICAL CREAM 3. Primary hypertension - ICD9: 401.9, ICD10: I10 - Worsening control - Recommend home blood pressure monitoring, to bring results to next visit - recheck one month and bring in cuff to validate. 4. Type 2 diabetes mellitus with diabetic neuropathy, unspecified whether halfway insulin use (HCC) - ICD9: 250.60, 357.2, ICD10: E11.40 - recheck foot at next ov as well given the rash. Ranjeet Goodwin MD documented in this encounterA[facility]04-16-2024 History of Present illness Narrative* Amada Wright RT(R) - 02/09/2024 11:20 AM EDT Radiology Service Progress Note PATIENT NAME: Arcenio Rand DATE OF SERVICE: February 09, 2024 TIME: 11:07 AM PATIENT IDENTITY VERIFICATION COMPLETED USING TWO (2) IDENTIFIERS: Name and Date of confirmedby patient verbally. FALL SCREENING: Has the patient had 2 falls in the last year or 1 fall with injury or currently using an Ambulatory Assistive Device (Walker, Cane, Wheelchair, Crutches, etc.)? No PATIENT GENDER DATA: Female. status: : No status: NO. PATIENT RELEVANT IMPLANT DATA REVIEWED: Yes PATIENT PRESENTS WITH AN IMPLANTABLE OR ATTACHED STOCK CAR DRIVER: No RADIOLOGY DEPARTMENT: General X-ray: Exam(s) Completed: Upper Extremity X- Ray(s): Shoulder, AP / TRUE AP left and Humerus, left scapular Y view PERIPHERAL IV DATA: Not applicable SIGNED BY: RT Jeanette(R) February 09, 2024 11:07 AM documented in this encounterAultman [facility]04-16-2024 History of Present illness Narrative* Augustine Arthur APRN.METAL PICKLING EQUIPMENT OPERATOR - 02/09/2024 10:58 AM EDT Subjective HPI Nontoxic female presents urgent care chief complaint left shoulder injury. Duration of symptoms today. Associated symptoms left shoulder and upper arm pain. States fell today at workshop. Denies any other injuries no head neck or back pain. No LOC. History of decreased range of motion of shoulder and shoulder pain prior to injury. No fractures or surgeries previously. Overall feels well. Past medical history prescription medications allergies reviewed. .Patient presents with: left shoulder pain: Fell this am PAST MEDICAL HISTORY Diagnosis Date Arthralgia Chronic back pain Depression Developmental delay Diabetic neuropathy (HCC) feet DM (diabetes mellitus) (HCC) Hypertension Hypothyroid Mental disorder Snoring PAST SURGICAL HISTORY Procedure Laterality Date COLONOSCOPY FLX DX W/COLLJ SPEC WHEN PFRMD 09/23/2018 Colonoscopy HYSTERECTOMY N/A XCAPSL CTRC RMVL INSJ IO LENS PROSTH CPLX WO ECP ALLERGIES Amoxicillin, Bleach (Sodium Hypochlorite), Penicillins, and Sulfa (Sulfonamide Antibiotics) MEDICATIONS insulin glargine 100 unit/mL (3 mL) Inject 32 Units subcutaneously every morning. DULoxetine (CYMBALTA) 60 mg capsule Take 1 capsule by mouth once daily. celecoxib (CELEBREX) 200 mg capsule Take 1 capsule by mouth once daily. empagliflozin (JARDIANCE) 25 mg tablet Take 1 tablet by mouth once daily. metFORMIN ER (GLUCOPHAGE XR) 500 mg 24 hr tablet Take 2 tablet by mouth twice daily with food. atenolol (TENORMIN) 100 mg tablet Take 1 tablet by mouth once daily. atorvastatin (LIPITOR) 20 mg tablet Take 1 tablet by mouth daily at bedtime. For cholesterol. SITagliptin phosphate (JANUVIA) 100 mg tablet Take 1 tablet by mouth once daily. estradiol (ESTRACE) 1 mg tablet Take 1 tablet by mouth once daily. pioglitazone (ACTOS) 15 mg tablet Take 1 tablet by mouth once daily. nystatin (MYCOSTATIN) cream Apply 1 application to affected area two times a day. levothyroxine (SYNTHROID) 50 mcg tablet Take 1 tablet by mouth once daily. Take on empty stomach. For Thyroid. lisinopril (ZESTRIL) 40 mg tablet Take 1 tablet by mouth once daily. Blood-Glucose Sensor (FREESTYLE RADHA 3 SENSOR) brice Apply new sensor every fourteen (14) days to upper arm. cyanocobalamin (VITAMIN B-12) 1,000 mcg tab Take 1 tablet by mouth once daily. multivitamin-ferrous fumarate-folic acid (CENTRUM) Take 1 tablet by mouth once daily. aspirin, enteric coated (ASPIRIN, ENTERIC COATED) 81 mg EC tablet Take 1 tablet by mouth once daily. (self-started) omeprazole (PRILOSEC) 20 mg capsule Take 2 capsules by mouth once daily. Insulin [place], Disposable, (BD ULTRA-FINE ROSALIE PEN NEEDLE) 32 gauge x Use to inject insulinonce daily as directed Lancets lancets One Touch Test blood sugar(s) 2 times daily. Dx: Type 2 DM - Controlled E11.9 Insulin: Yes cyclobenzaprine (FLEXERIL) 5 mg tablet Take 1 tablet by mouth at bedtime as needed. triamcinolone acetonide (KENALOG) 0.1 % ointment Apply to affected area twice daily. X 2 weeks; then take a break X 1 week. If still present, then restart X 2 more weeks. blood sugar diagnostic (BLOOD GLUCOSE TEST) test strip Test blood sugar(s) 2 times daily. Dx: Type 2 DM - Controlled E11.9 Insulin: Yes blood sugar diagnostic (BLOOD GLUCOSE TEST) test strip Test blood sugar(s) 2 times daily. Dx: Type 2 DM - Uncontrolled E11.65 Insulin: Yes CPAP Pt device on recall list. Given findings on eval, would like pt to be changed to an AutoPAP device with humidity set at 10-16 cmH2O. Please provide download in 4 weeks. Also with mask leaks and please try to fit with dreamwear under nose FFM. hydrOXYzine HCl (ATARAX) 25 mg tablet Take 1 tablet by mouth every 6 hours as needed for anxiety. Cholecalciferol, Vitamin D3, (VITAMIN D-3) 50 mcg (2,000 unit) cap Take 1 capsule by mouth once daily. MULTIVITAMIN ORAL Take 1 tablet by mouth once daily. COMPOUNDED PRESCRIPTION Diabetic shoes sertraline (ZOLOFT) 50 mg tablet Take 1 tablet by mouth once daily. FAMILY HISTORY Problem Relation Age of Onset Arthritis Mother Diabetes Mother Hypertension Mother Hyperlipidemia Mother Social History Tobacco Use Smoking status: Never Smokeless tobacco: Never Vaping Use Vaping Use: Never used Substance Use Topics Alcohol use: No Drug use: No BP 138/82 Pulse 65 Temp 36.3 C (97.4 F) (Tympanic) Resp 18 Wt 85.5 kg (188 lb 6.8 oz) SpO2 97% BMI 36.80 kg/m Review of Systems Constitutional: Negative for chills, fever and malaise/fatigue. HENT: Negative for congestion, ear discharge, ear pain, sinus pain and sore throat. Eyes: Negative for blurred vision, pain, discharge and redness. Respiratory: Negative for cough, hemoptysis, sputum production, shortness of breath, wheezing and stridor. Cardiovascular: Negative for chest pain. Gastrointestinal: Negative for abdominal pain, diarrhea, nausea and vomiting. Musculoskeletal: Positive for falls and joint pain. Negative for back pain, myalgias and neck pain. Skin: Negative for itching and rash. Neurological: Negative for dizziness and headaches. Objective Physical Exam Constitutional: General: She is not in acute distress. Appearance: She is not toxic-appearing. HENT: Head: Normocephalic. Nose: Nose normal. Eyes: Pupils: Pupils are equal, round, and reactive to light. Cardiovascular: Rate and Rhythm: Normal rate. Pulmonary: Effort: Pulmonary effort is normal. No respiratory distress. Musculoskeletal: Left shoulder: Tenderness and bony tenderness present. No swelling, deformity or effusion. Decreased range of motion. Normal strength. Left upper arm: Edema, tenderness and bony tenderness present. No swelling, deformity or lacerations. Left elbow: No swelling, deformity, effusion or lacerations. Normal range of motion. Tenderness present in radial head. Left forearm: Normal. Cervical back: Normal range of motion. Comments: No breaks in skin. Neurovascular intact. No spinal tenderness with palpation. Skin: General: Skin is warm and dry. Neurological: General: No focal deficit present. Mental Status: She is alert. ASSESSMENT/PLAN: 1. Injury of left shoulder, initial encounter - ICD9: 959.2, ICD10: S49.92XA - XR SHOULDER GENERAL 3V OR MORE AP/TRUE AP/OTHER LEFT - XR HUMERUS 2V AP/LAT LEFT - CONSULT TO ORTHOPAEDICS IMPRESSION: No radiographic evidence of acute osseous injury. No acute findings noted on x-ray. Exam limited to discomfort. Suspicious of rotator cuff injury. Referred to Ortho. Ice and sling. Patient was educated on supportive therapies. Patient will follow up with primary care provider as needed. Patient was instructed to immediately proceed to emergency room for any new, worsening, or symptoms lasting longer than anticipated. The patient's clinical presentation is otherwise unremarkable at this time. Based on exam and clinical finding, the patient is stable for discharge. Plan of care was discussed with patient. Patient verbalizes understanding and agrees to plan of care. This note was generated using Transfer To software. It may contain errors in wording, punctuation, or spelling. Augustine Arthur APRN.METAL PICKLING EQUIPMENT OPERATOR documented in this encounterAultman [facility]04-05-2024 Miscellaneous Notes* Telephone Encounter - Renetta Villa RN - 01/29/2024 3:05 PM EDT Patient has been identified by name and date of : Yes, Provider Dr Goodwin Date 01/29/24 Time 1507. Pharmacy phones for refill(s): Requested Prescriptions Pending Prescriptions Disp Refills insulin glargine 100 unit/mL (3 mL) 5 Each 5 Sig: Inject 32 Units subcutaneously every morning. Date of last office visit in primary care: 12/07/2023 Date of next office visit in primary care: 06/06/2024 Please advise. Thank you. Renetta Villa RN. documented in this encounterAultman [facility]03-22-2024 History of Present illness Narrative* Ketty Kaplan MA - 01/15/2024 2:58 PM EDT POPULATION HEALTH NAVIGATION OUTREACH Action/FYI msg to schedule wellness Reason for Outreach Care Gap/HCC or Scheduling Wellness Visits Care Gaps due: Medicare Annual Wellness Visit Patient Contacted: Unable or unnecessary to reach patient: Left message ENTrigue Surgicalhart message sent Navigation Signature: Ketty Kaplan MA January 15, 2024 2:58 PM documented in this encounterAultman Orr[facility]03-19-2024 Miscellaneous Notes* Letter - Coordinator, Mammography - 01/12/2024 10:48 AM EDT January 12, 2024 PID: [id number] Arcenio Rand [address] [place] [address] Dear Ms. Rand, We are pleased to inform you that the results of your recent breast imaging exam on 01/11/2024 are normal. Early detection of cancer is very important. We also understand recommendations regarding breast cancer screening are controversial. Please discuss with your primary care provider which strategy is best for you and whether a mammogram is right for you. Your imaging studies and report will be kept on file at [facility] as part of your permanent medical record and are available for your continuing care. Thank you for allowing us to help in meeting your health care needs. Sincerely, Dr. Pang Interpreting Radiologist [facility] (Normal over 40) documented in this encounterAultman Orrville [facility]03-18-2024 History of Present illness Narrative* Clarissa Ham Mammo Tech - 01/11/2024 9:50 AM EDT Radiology Service Progress Note PATIENT NAME: Arcenio Rand DATE OF SERVICE: January 11, 2024 TIME: 9:56 AM PATIENT IDENTITY VERIFICATION COMPLETED USING TWO (2) IDENTIFIERS: Name and Date of confirmedby patient verbally. FALL SCREENING: Has the patient had 2 falls in the last year or 1 fall with injury or currently using an Ambulatory Assistive Device (Walker, Cane, Wheelchair, Crutches, etc.)? No PATIENT GENDER DATA: Female. status: : No status: NO. PATIENT RELEVANT IMPLANT DATA REVIEWED: Not Applicable PATIENT PRESENTS WITH AN IMPLANTABLE OR ATTACHED STOCK CAR DRIVER: No RADIOLOGY DEPARTMENT: Mammography PERIPHERAL IV DATA: Not applicable SIGNED BY: Clarissa Ham Atlas5D Jimmy January 11, 2024 9:56 AM documented in this encounterAultman Orr[facility]02-28-2024 Miscellaneous Notes* Telephone Encounter - Kaela Finley LPN - 12/23/2023 4:08 PM EST Patient has been identified by name and date of : Yes, Provider Dr Goodwin Pharmacy phones for refill(s): Requested Prescriptions Pending Prescriptions Disp Refills empagliflozin (JARDIANCE) 25 mg tablet 90 tablet 1 Sig: Take 1 tablet by mouth once daily. metFORMIN ER (GLUCOPHAGE XR) 500 mg 24 hr tablet 360 tablet 1 Sig: Take 2 tablet by mouth twice daily with food. atenolol (TENORMIN) 100 mg tablet 90 tablet 1 Sig: Take 1 tablet by mouth once daily. atorvastatin (LIPITOR) 20 mg tablet 90 tablet 1 Sig: Take 1 tablet by mouth daily at bedtime. For cholesterol. SITagliptin phosphate (JANUVIA) 100 mg tablet 90 tablet 1 Sig: Take 1 tablet by mouth once daily. estradiol (ESTRACE) 1 mg tablet 90 tablet 1 Sig: Take 1 tablet by mouth once daily. pioglitazone (ACTOS) 15 mg tablet 90 tablet 1 Sig: Take 1 tablet by mouth once daily. Date of last office visit in primary care: 12/07/2023 Date of next office visit in primary care: 06/06/2024 Please advise. Thank you. Kaela Finley LPN. documented in this encounterAultman [facility]02-12-2024 History of Present illness Narrative* Ranjeet Goodwin MD - 12/07/2023 2:11 PM EST Patient presents with: 6 Month Exam HPI: Patient presents today for office visit for follow up. Just got engaged. HTN: Checking BP every afternoon Readings have been high Denies chest pain Denies shortness of breath Complains of lots of headaches Denies dizziness No edema DM: Checking sugars twice a day Brought list of readings No hypoglycemic spells No vision changes HIMANSHU: Wearing CPAP nightly Causing dry mouth Sleeping well Does not always feel rested when waking. Refers to it taking quite awhile for her to wake up. Feeling very tired recently No snoring Component Latest Ref Rng & Units 11/23/2023 WBC 3.70 - 11.00 k/uL 7.77 RBC 3.90 - 5.20 m/uL 5.02 Hemoglobin 11.5 - 15.5 g/dL 13.9 Hematocrit 36.0 - 46.0 % 44.8 MCV 80.0 - 100.0 fL 89.2 MCH 26.0 - 34.0 pg 27.7 MCHC 30.5 - 36.0 g/dL 31.0 RDW-CV 11.5 - 15.0 % 14.6 Platelet Count 150 - 400 k/uL 288 MPV 9.0 - 12.7 fL 10.4 Neut% % 65.9 Abs Neut (ANC) 1.45 - 7.50 k/uL 5.12 Lymph% % 22.5 Abs Lymph 1.00 - 4.00 k/uL 1.75 Tyrrell% % 9.0 Abs Tyrrell <0.87 k/uL 0.70 Eosin% % 1.8 Abs Eosin <0.46 k/uL 0.14 Baso% % 0.5 Abs Baso <0.11 k/uL 0.04 Immature Gran % % 0.3 IMMATURE GRANS (ABS) <0.10 k/uL <0.03 NRBC /100 WBC 0.0 Absolute nRBC <0.01 k/uL <0.01 DTYPE Auto Protein, Total 6.3 - 8.0 g/dL 6.9 Albumin 3.9 - 4.9 g/dL 4.0 Calcium 8.5 - 10.2 mg/dL 9.3 Bilirubin, Total 0.2 - 1.3 mg/dL 0.5 Alkaline Phosphatase 34 - 123 U/L 62 AST 13 - 35 U/L 14 ALT 7 - 38 U/L 11 Glucose 74 - 99 mg/dL 141 (H) BUN 7 - 21 mg/dL 15 Creatinine 0.58 - 0.96 mg/dL 0.85 Sodium 136 - 144 mmol/L 140 Potassium 3.7 - 5.1 mmol/L 4.3 Chloride 97 - 105 mmol/L 102 CO2 22 - 30 mmol/L 28 Anion Gap 9 - 18 mmol/L 10 eGFR >=60 mL/min/1.73m 81 Cholesterol, Total <200 mg/dL 153 Triglyceride <150 mg/dL 170 (H) HDL Cholesterol >39 mg/dL 49 Non HDL Cholesterol <130 mg/dL 104 Fasting Time hrs 12 VLDL Cholesterol <30 mg/dL 34 (H) TC:HDL Ratio <5.10 3.12 LDL Cholesterol <100 mg/dL 70 LDL:HDL Ratio <2.54 1.43 Creatinine, Ur Random (UCRR) 20.0 - 300.0 mg/dL 96.6 Albumin, Urine Random mg/L 39.7 Albumin/Creat Ratio <30 mg/g 41 (H) Hemoglobin A1C 4.3 - 5.6 % 7.0 (H) Estimated Average Glucose mg/dL 154 TSH 0.270 - 4.200 mIU/L 0.846 Vitamin B12 232 - 1,245 pg/mL 1,843 (H) MEDICATIONS: Current Outpatient Medications Medication Sig levothyroxine (SYNTHROID) 50 mcg tablet Take 1 tablet by mouth once daily. Take on empty stomach. For Thyroid. lisinopril (ZESTRIL) 40 mg tablet Take 1 tablet by mouth once daily. celecoxib (CELEBREX) 200 mg capsule Take 1 capsule by mouth once daily. insulin glargine 100 unit/mL (3 mL) Inject 32 Units subcutaneously every morning. Blood-Glucose Sensor (FREESTYLE RADHA 3 SENSOR) brice Apply new sensor every fourteen (14) days to upper arm. cyanocobalamin (VITAMIN B-12) 1,000 mcg tab Take 1 tablet by mouth once daily. multivitamin-ferrous fumarate-folic acid (CENTRUM) Take 1 tablet by mouth once daily. aspirin, enteric coated (ASPIRIN, ENTERIC COATED) 81 mg EC tablet Take 1 tablet by mouth once daily. (self-started) DULoxetine (CYMBALTA) 60 mg capsule Take 1 capsule by mouth once daily. empagliflozin (JARDIANCE) 25 mg tablet Take 1 tablet by mouth once daily. metFORMIN ER (GLUCOPHAGE XR) 500 mg 24 hr tablet Take 2 tablet by mouth twice daily with food. atenolol (TENORMIN) 100 mg tablet Take 1 tablet by mouth once daily. atorvastatin (LIPITOR) 20 mg tablet Take 1 tablet by mouth daily at bedtime. For cholesterol. SITagliptin phosphate (JANUVIA) 100 mg tablet Take 1 tablet by mouth once daily. estradiol (ESTRACE) 1 mg tablet Take 1 tablet by mouth once daily. pioglitazone (ACTOS) 15 mg tablet Take 1 tablet by mouth once daily. omeprazole (PRILOSEC) 20 mg capsule Take 2 capsules by mouth once daily. Insulin [place], Disposable, (BD ULTRA-FINE ROSALIE PEN NEEDLE) 32 gauge x Use to inject insulinonce daily as directed Lancets lancets One Touch Test blood sugar(s) 2 times daily. Dx: Type 2 DM - Controlled E11.9 Insulin: Yes cyclobenzaprine (FLEXERIL) 5 mg tablet Take 1 tablet by mouth at bedtime as needed. triamcinolone acetonide (KENALOG) 0.1 % ointment Apply to affected area twice daily. X 2 weeks; then take a break X 1 week. If still present, then restart X 2 more weeks. sertraline (ZOLOFT) 50 mg tablet Take 1 tablet by mouth once daily. blood sugar diagnostic (BLOOD GLUCOSE TEST) test strip Test blood sugar(s) 2 times daily. Dx: Type 2 DM - Controlled E11.9 Insulin: Yes blood sugar diagnostic (BLOOD GLUCOSE TEST) test strip Test blood sugar(s) 2 times daily. Dx: Type 2 DM - Uncontrolled E11.65 Insulin: Yes CPAP Pt device on recall list. Given findings on eval, would like pt to be changed to an AutoPAP device with humidity set at 10-16 cmH2O. Please provide download in 4 weeks. Also with mask leaks and please try to fit with dreamwear under nose FFM. hydrOXYzine HCl (ATARAX) 25 mg tablet Take 1 tablet by mouth every 6 hours as needed for anxiety. Cholecalciferol, Vitamin D3, (VITAMIN D-3) 50 mcg (2,000 unit) cap Take 1 capsule by mouth once daily. MULTIVITAMIN ORAL Take 1 tablet by mouth once daily. COMPOUNDED PRESCRIPTION Diabetic shoes No current facility-administered medications for this visit. ALLERGIES: ALLERGIES Allergen Reactions Amoxicillin Other: See Comments Bleach (Sodium Hypo* Hives Penicillins Other: See Comments Sulfa (Sulfonamide * Rash & dry heaves. PAST MEDICAL HISTORY Diagnosis Date Arthralgia Chronic back pain Depression Developmental delay Diabetic neuropathy (HCC) feet DM (diabetes mellitus) (HCC) Hypertension Hypothyroid Mental disorder Snoring PAST SURGICAL HISTORY Procedure Laterality Date COLONOSCOPY FLX DX W/COLLJ SPEC WHEN PFRMD 09/23/2018 Colonoscopy HYSTERECTOMY N/A XCAPSL CTRC RMVL INSJ IO LENS PROSTH CPLX WO ECP FAMILY HISTORY Problem Relation Age of Onset Arthritis Mother Diabetes Mother Hypertension Mother Hyperlipidemia Mother Social History Tobacco Use Smoking status: Never Smokeless tobacco: Never Vaping Use Vaping Use: Never used Substance Use Topics Alcohol use: No Drug use: No Reviewed current medications, allergies, past medical history, surgical history, family history andsocial history today. REVIEW OF SYSTEMS Still with occasional shoulder pain. Uses celebrex. Has seen ortho for it in the past. Back to ortho if worsens. All other reviewed and negative other than HPI. HEALTH MAINTENANCE: Reviewed health maintenance issues today and recommended the following in detail. BP Controlled (<130/80) Never done Mammogram Screening due on 01/06/2024 VITALS: BP 112/78 Pulse 60 Ht 152.4 cm (5') Wt 86.6 kg (191 lb) SpO2 97% BMI 37.30 kg/m Last 4 Encounter Wt Readings: Date: Wt: 09/14/2023 87.1 kg (192 lb) 05/11/2023 89.8 kg (198 lb) 11/10/2022 91.1 kg (200 lb 12.8 oz) 08/12/2022 88.9 kg (196 lb) PHYSICAL EXAMINATION: General appearance: Well appearing, alert, in no acute distress, well-hydrated, well nourished. Skin: Skin color, texture, turgor normal, no suspicious rashes or lesions Head: Normocephalic, no masses, lesions, tenderness or abnormalities Neck: Supple, no adenopathy; thyroid symmetric, normal size, no bruits Lungs: Lungs clear to auscultation. No wheezing, rhonchi, rales Heart: RRR without murmur, gallop, or rubs. No ectopy Abdomen: Normal abdominal exam, Abdomen soft, non-tender. Bowel sounds normal. No masses, organomegaly Extremities: No deformities, edema, skin discoloration, clubbing or cyanosis. Good capillary refill. Musculoskeletal: No joint swelling, deformity, or tenderness Peripheral pulses: Normal Neuro: Negative. ASSESSMENT/PLAN: 1. Type 2 diabetes mellitus with diabetic neuropathy, unspecified whether halfway insulin use (HCC) - ICD9: 250.60, 357.2, ICD10: E11.40 (primary diagnosis) - follow diet. A1c in six months. 2. Essential hypertension, benign - ICD9: 401.1, ICD10: I10 - Controlled - Continue current medications 3. Mixed hyperlipidemia - ICD9: 272.2, ICD10: E78.2 - Controlled - Continue current medications 4. Vitamin B 12 deficiency - ICD9: 266.2, ICD10: E53.8 - stable. 5. Acquired hypothyroidism - ICD9: 244.9, ICD10: E03.9 -Continue current medications. Notify us if any difficulties are noted. 6. Depression, unspecified depression type - ICD9: 311, ICD10: F32.A - stable. 7. HIMANSHU (obstructive sleep apnea) - ICD9: 327.23, ICD10: G47.33 - CONSULT TO SLEEP MEDICINE - ADULT 8. Microalbuminuria - ICD9: 791.0, ICD10: R80.9 - on isabel 9. Encounter for screening mammogram for malignant neoplasm of breast - ICD9: V76.12, ICD10: Z12.31 - Follow up for annual exam in one year. - [facility] SCREENING Ranjeet Goodwin MD documented in this encounterAultman Orr[facility]11-15-2023 Miscellaneous Notes* Telephone Encounter - Chanel Field RN - 09/09/2023 3:21 PM EST Patient has been identified by name and date of : Yes, Provider Dr. Goodwin Date 09/09/23 Time 1500 Pharmacy phones for refill(s): Requested Prescriptions Pending Prescriptions Disp Refills cyanocobalamin (VITAMIN B-12) 1,000 mcg tab 90 tablet 3 Sig: Take 1 tablet by mouth once daily. multivitamin-ferrous fumarate-folic acid (CENTRUM) 90 tablet 3 Sig: Take 1 tablet by mouth once daily. aspirin, enteric coated (ASPIRIN, ENTERIC COATED) 81 mg EC tablet 90 tablet 3 Sig: Take 1 tablet by mouth once daily. (self-started) Date of last office visit in primary care: 05/11/2023 Date of next office visit in primary care: 09/14/2023 Last 2 Encounter Wt Readings: Date: Wt: 05/11/2023 89.8 kg (198 lb) 11/10/2022 91.1 kg (200 lb 12.8 oz) Previous labs/tests for medication: Blood Counts: WBC (k/uL) Date Value 05/11/2023 9.46 10/05/2021 6.52 RBC (m/uL) Date Value 05/11/2023 5.09 10/05/2021 4.89 Hematocrit (%) Date Value 05/11/2023 44.2 10/05/2021 43.6 Hemoglobin (g/dL) Date Value 05/11/2023 13.9 10/05/2021 13.6 Platelet Count (k/uL) Date Value 05/11/2023 324 10/05/2021 277 Please advise. Thank you. Chanel Field RN. documented in this encounterAultman [facility]09-15-2023 Miscellaneous Notes* Telephone Encounter - Charles Cortez RN - 07/10/2023 11:30 AM EDT Patient has been identified by name and date of : Yes, Provider [place] Date 07-10-23 Time 11:32 am Pharmacy phones for refill(s): Requested Prescriptions Pending Prescriptions Disp Refills empagliflozin (JARDIANCE) 25 mg tablet 90 tablet 1 Sig: Take 1 tablet by mouth once daily. metFORMIN ER (GLUCOPHAGE XR) 500 mg 24 hr tablet 360 tablet 1 Sig: Take 2 tablet by mouth twice daily with food. atenolol (TENORMIN) 100 mg tablet 90 tablet 1 Sig: Take 1 tablet by mouth once daily. atorvastatin (LIPITOR) 20 mg tablet 90 tablet 1 Sig: Take 1 tablet by mouth daily at bedtime. For cholesterol. SITagliptin phosphate (JANUVIA) 100 mg tablet 90 tablet 1 Sig: Take 1 tablet by mouth once daily. estradiol (ESTRACE) 1 mg tablet 90 tablet 1 Sig: Take 1 tablet by mouth once daily. pioglitazone (ACTOS) 15 mg tablet 90 tablet 1 Sig: Take 1 tablet by mouth once daily. Date of last office visit with pcp: 05-11-23. Next appt: 11-16-23 Last 2 Encounter Wt Readings: Date: Wt: 05/11/2023 89.8 kg (198 lb) 11/10/2022 91.1 kg (200 lb 12.8 oz) Previous labs/tests for medication: Diabetes: Hemoglobin A1C (%) Date Value 05/11/2023 7.5 11/01/2022 6.6 10/05/2021 6.1 03/15/2021 6.7 Cholesterol: Triglycerides (mg/dL) Date Value 08/23/2018 247 HDL Cholesterol (mg/dL) Date Value 11/01/2022 48 10/05/2021 45 LDL Cholesterol (mg/dL) Date Value 11/01/2022 73 10/05/2021 74 ALT (U/L) Date Value 11/01/2022 15 10/05/2021 17 Non HDL Cholesterol (mg/dL) Date Value 11/01/2022 117 10/05/2021 107 Blood Pressure: BUN (mg/dL) Date Value 05/11/2023 23 10/05/2021 21 Sodium (mmol/L) Date Value 05/11/2023 139 10/05/2021 140 Last 1 Encounter BP Readings: Date: BP: 05/11/2023 120/82 Blood Counts: WBC (k/uL) Date Value 05/11/2023 9.46 10/05/2021 6.52 RBC (m/uL) Date Value 05/11/2023 5.09 10/05/2021 4.89 Hematocrit (%) Date Value 05/11/2023 44.2 10/05/2021 43.6 Hemoglobin (g/dL) Date Value 05/11/2023 13.9 10/05/2021 13.6 Platelet Count (k/uL) Date Value 05/11/2023 324 10/05/2021 277 Liver Function: ALT (U/L) Date Value 11/01/2022 15 10/05/2021 17 AST (U/L) Date Value 11/01/2022 20 10/05/2021 22 Please advise. Thank you. Charles Cortez RN documented in this encounterAultman Orr[facility]08-25-2023 Miscellaneous Notes* Telephone Encounter - Charles Cortez RN - 06/19/2023 1:54 PM EDT Patient has been identified by name and date of : Yes, Provider [place] Date 06-19-23 Time 1:55 pm Pharmacy phones for refill(s): Requested Prescriptions Pending Prescriptions Disp Refills omeprazole (PRILOSEC) 20 mg capsule 60 capsule 11 Sig: Take 2 capsules by mouth once daily. Date of last office visit with pcp: 05-11-23. Next appt: 11-16-23 Last 2 Encounter Wt Readings: Date: Wt: 05/11/2023 89.8 kg (198 lb) 11/10/2022 91.1 kg (200 lb 12.8 oz) Previous labs/tests for medication: Blood Pressure: BUN (mg/dL) Date Value 05/11/2023 23 10/05/2021 21 Sodium (mmol/L) Date Value 05/11/2023 139 10/05/2021 140 Last 1 Encounter BP Readings: Date: BP: 05/11/2023 120/82 Liver Function: ALT (U/L) Date Value 11/01/2022 15 10/05/2021 17 AST (U/L) Date Value 11/01/2022 20 10/05/2021 22 Please advise. Thank you. Charles Cortez RN documented in this encounterAultman [facility]08-21-2023 Miscellaneous Notes* Telephone Encounter - Hazel Delgado RN - 06/15/2023 3:34 PM EDT Medication refill requested by Pharmacy Requested Prescriptions Pending Prescriptions Disp Refills mupirocin (BACTROBAN) 2 % cream 30 g 0 Sig: Apply 1 application to affected area three times daily for 10 days. Location: right hand Last encounter with this provider: 05/11/2023 Next appt: 11/16/2023 Hazel Delgado, RN documented in this encounterAultman Orrville [facility]07-18-2023 Miscellaneous Notes* Telephone Encounter - Estrella Cutler - 05/12/2023 10:25 AM EDT Spoke with Carter, patients caregiver and relayed results. Patient was not fasting. Advised to get A1c in 3 months. Carter verbalized understanding. Estrella Cutler * Telephone Encounter - Ranjeet Goodwin MD - 05/12/2023 7:59 AM EDT Labs show she needs to push fluids a little more. Sugars are on the rise. Watch diet. Recheck a1c in three months documented in this encounterAultman Orr[facility]07-17-2023 History of Present illness Narrative* Ranjeet Goodwin MD - 05/11/2023 10:43 AM EDT Patient presents with: 6 Month Exam HPI: Patient presents today for office visit for follow up. DM: Reports overall feeling well. Medication side effects: No. Home sugar check frequency/results:twice a day-122 this morning Hypoglycemic spells: No. Watching diet: Yes. Unexpected weight loss: No. Reports did lose 3 pounds. Polyuria, polydipsia: No. Vision Changes: scheduled tomorrow for exam. Foot lesions or numbness or pain: hit toe on bed and lost nail. Also notice joint of great toe on left foot larger but causing no issues. Working on moving right now to a bigger apartment. HIMANSHU: uses CPAP regularly. Sleeps well: Yes. Feels rested on awakening: Yes No daytime fatigue: No Snoring: No Has labs ordered. No chest pain or shortness of breath. Emotionally Is doing well. HYPOTHYROID: energy level is good. MEDICATIONS: Current Outpatient Medications Medication Sig insulin glargine 100 unit/mL (3 mL) Inject 30 Units subcutaneously every morning. DULoxetine (CYMBALTA) 60 mg capsule Take 1 capsule by mouth once daily. celecoxib (CELEBREX) 200 mg capsule Take 1 capsule by mouth once daily. empagliflozin (JARDIANCE) 25 mg tablet Take 1 tablet by mouth once daily. metFORMIN ER (GLUCOPHAGE XR) 500 mg 24 hr tablet Take 2 tablet by mouth twice daily with food. atenolol (TENORMIN) 100 mg tablet Take 1 tablet by mouth once daily. atorvastatin (LIPITOR) 20 mg tablet Take 1 tablet by mouth daily at bedtime. For cholesterol. SITagliptin phosphate (JANUVIA) 100 mg tablet Take 1 tablet by mouth once daily. estradiol (ESTRACE) 1 mg tablet Take 1 tablet by mouth once daily. pioglitazone (ACTOS) 15 mg tablet Take 1 tablet by mouth once daily. sertraline (ZOLOFT) 50 mg tablet Take 1 tablet by mouth once daily. levothyroxine (SYNTHROID) 50 mcg tablet Take 1 tablet by mouth once daily. Take on empty stomach. For Thyroid. lisinopril (ZESTRIL, PRINIVIL) 40 mg tablet Take 1 tablet by mouth once daily. aspirin, enteric coated (ASPIRIN, ENTERIC COATED) 81 mg EC tablet Take 1 tablet by mouth once daily. (self-started) multivitamin-ferrous fumarate-folic acid (CENTRUM) Take 1 tablet by mouth once daily. cyanocobalamin (VITAMIN B-12) 1,000 mcg tab Take 1 tablet by mouth once daily. omeprazole (PRILOSEC) 20 mg capsule Take 2 capsules by mouth once daily. CPAP Pt device on recall list. Given findings on eval, would like pt to be changed to an AutoPAP device with humidity set at 10-16 cmH2O. Please provide download in 4 weeks. Also with mask leaks and please try to fit with dreamwear under nose FFM. hydrOXYzine HCl (ATARAX) 25 mg tablet Take 1 tablet by mouth every 6 hours as needed for anxiety. Cholecalciferol, Vitamin D3, (VITAMIN D-3) 50 mcg (2,000 unit) cap Take 1 capsule by mouth once daily. Insulin [place], Disposable, (BD ULTRA-FINE ROSALIE PEN NEEDLE) 32 gauge x 5/32 Use to inject insulinonce daily as directed Lancets lancets One Touch Test blood sugar(s) 2 times daily. Dx: Type 2 DM - Controlled E11.9 Insulin: Yes cyclobenzaprine (FLEXERIL) 5 mg tablet Take 1 tablet by mouth at bedtime as needed. triamcinolone acetonide (KENALOG) 0.1 % ointment Apply to affected area twice daily. X 2 weeks; then take a break X 1 week. If still present, then restart X 2 more weeks. blood sugar diagnostic (BLOOD GLUCOSE TEST) test strip Test blood sugar(s) 2 times daily. Dx: Type 2 DM - Controlled E11.9 Insulin: Yes blood sugar diagnostic (BLOOD GLUCOSE TEST) test strip Test blood sugar(s) 2 times daily. Dx: Type 2 DM - Uncontrolled E11.65 Insulin: Yes MULTIVITAMIN ORAL Take 1 tablet by mouth once daily. COMPOUNDED PRESCRIPTION Diabetic shoes No current facility-administered medications for this visit. ALLERGIES: ALLERGIES Allergen Reactions Amoxicillin Other: See Comments Bleach (Sodium Hypo* Hives Penicillins Other: See Comments Sulfa (Sulfonamide * Rash & dry heaves. PAST MEDICAL HISTORY Diagnosis Date Arthralgia Chronic back pain Depression Developmental delay Diabetic neuropathy (HCC) feet DM (diabetes mellitus) (HCC) Hypertension Hypothyroid Mental disorder Snoring PAST SURGICAL HISTORY Procedure Laterality Date COLONOSCOPY FLX DX W/COLLJ SPEC WHEN PFRMD 09/23/2018 Colonoscopy HYSTERECTOMY N/A XCAPSL CTRC RMVL INSJ IO LENS PROSTH CPLX WO ECP FAMILY HISTORY Problem Relation Age of Onset Arthritis Mother Diabetes Mother Hypertension Mother Hyperlipidemia Mother Social History Tobacco Use Smoking status: Never Smokeless tobacco: Never Vaping Use Vaping Use: Never used Substance Use Topics Alcohol use: No Drug use: No Reviewed current medications, allergies, past medical history, surgical history, family history andsocial history today. REVIEW OF SYSTEMS Physical therapy is working on her shoulder. All other reviewed and negative other than HPI. HEALTH MAINTENANCE: Reviewed health maintenance issues today and recommended the following in detail. HEPATITIS B(1 of 3 - 3-dose series) Never done SHINGRIX VACCINE(1 of 2) Never done PNEUMOCOCCAL(2 - PCV) due on 09/19/2021 COVID-19 VACCINE(4 - Pfizer series) due on 12/25/2021 HBA1C due on 05/01/2023 DILATED RETINAL EXAM -gets tomorrow. VITALS: BP 120/82 Pulse 64 Wt 89.8 kg (198 lb) SpO2 100% BMI 38.67 kg/m Last 4 Encounter Wt Readings: Date: Wt: 05/11/2023 89.8 kg (198 lb) 11/10/2022 91.1 kg (200 lb 12.8 oz) 08/12/2022 88.9 kg (196 lb) 08/01/2022 90.4 kg (199 lb 3.2 oz) PHYSICAL EXAMINATION: General appearance: Well appearing, alert, in no acute distress, well-hydrated, well nourished. Skin: Skin color, texture, turgor normal, no suspicious rashes or lesions Head: Normocephalic, no masses, lesions, tenderness or abnormalities Lungs: Lungs clear to auscultation. No wheezing, rhonchi, rales Heart: RRR without murmur, gallop, or rubs. No ectopy Abdomen: Normal abdominal exam, Abdomen soft, non-tender. Bowel sounds normal. No masses, organomegaly Extremities: No deformities, edema, skin discoloration, clubbing or cyanosis. Good capillary refill. Feet:Shoes and socks removed, normal distal pulses, not sensitive to monofilament bilaterally, and some mild onychomycosis. Lost toe nail on toe as above. No deformity. Discussed foot care. Red flagsfor re-assessment reviewed with patient in detail. ASSESSMENT/PLAN: 1. 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 2. Acquired hypothyroidism - ICD9: 244.9, ICD10: E03.9 - doing well. - LEVOTHYROXINE 50 MCG TABLET 3. Insomnia, unspecified type - ICD9: 780.52, ICD10: G47.00 - stable. 4. Depression, unspecified depression type - ICD9: 311, ICD10: F32.A - continue meds. 5.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 Abs Eosin <0.46 k/uL 0.19 Baso% % 0.5 Abs Baso <0.11 k/uL 0.04 Immature Gran % % 0.4 IMMATURE GRANS (ABS) <0.10 k/uL 0.03 NRBC /100 WBC 0.0 Absolute nRBC <0.01 k/uL <0.01 DTYPE Auto Protein, Total 6.3 - 8.0 g/dL 7.3 Albumin 3.9 - 4.9 g/dL 4.2 Calcium 8.5 - 10.2 mg/dL 9.2 Bilirubin, Total 0.2 - 1.3 mg/dL 0.4 Alkaline Phosphatase 34 - 123 U/L 65 AST 13 - 35 U/L 20 ALT 7 - 38 U/L 15 Glucose 74 - 99 mg/dL 125 (H) BUN 7 - 21 mg/dL 19 Creatinine 0.58 - 0.96 mg/dL 0.86 Sodium 136 - 144 mmol/L 141 Potassium 3.7 - 5.1 mmol/L 4.1 Chloride 97 - 105 mmol/L 104 CO2 22 - 30 mmol/L 26 Anion Gap 9 - 18 mmol/L 11 eGFR >=60 mL/min/1.73m 80 Cholesterol, Total <200 mg/dL 165 Triglyceride <150 mg/dL 218 (H) HDL Cholesterol >39 mg/dL 48 Non HDL Cholesterol <130 mg/dL 117 Fasting Time hrs 9 VLDL Cholesterol <30 mg/dL 44 (H) TC:HDL Ratio <5.10 3.44 LDL Cholesterol <100 mg/dL 73 LDL:HDL Ratio <2.54 1.52 Creatinine, Ur Random (UCRR) 20.0 - 300.0 mg/dL 157.9 110.8 Albumin, Urine Random mg/L 18.9 18.8 Albumin/Creat Ratio <30 mg/g 12 17 Hemoglobin A1C 4.3 - 5.6 % 6.2 (H) 6.6 (H) Estimated Average Glucose mg/dL 131 143 TSH 0.270 - 4.200 mIU/L 1.270 MEDICATIONS: Current Outpatient Medications Medication Sig Insulin [place], Disposable, (BD ULTRA-FINE ROSALIE PEN NEEDLE) 32 gauge x 5/32 Use to inject insulinonce daily as directed blood sugar diagnostic (BLOOD GLUCOSE TEST) test strip Test blood sugar(s) 2 times daily. Dx: Type 2 DM - Controlled E11.9 Insulin: Yes lisinopril (PRINIVIL) 20 mg tablet Take 1 tablet by mouth once daily. aspirin, enteric coated (ASPIRIN, ENTERIC COATED) 81 mg EC tablet Take 1 tablet by mouth once daily. (self-started) multivitamin-ferrous fumarate-folic acid (CENTRUM) Take 1 tablet by mouth once daily. cyanocobalamin (VITAMIN B-12) 1,000 mcg tab Take 1 tablet by mouth once daily. celecoxib (CELEBREX) 200 mg capsule Take 1 capsule by mouth once daily. DULoxetine (CYMBALTA) 60 mg capsule Take 1 capsule by mouth once daily. empagliflozin (JARDIANCE) 25 mg tablet Take 1 tablet by mouth once daily. metFORMIN ER (GLUCOPHAGE XR) 500 mg 24 hr tablet Take 2 tablet by mouth twice daily with food. atenolol (TENORMIN) 100 mg tablet Take 1 tablet by mouth once daily. atorvastatin (LIPITOR) 20 mg tablet Take 1 tablet by mouth daily at bedtime. For cholesterol. estradiol (ESTRACE) 1 mg tablet Take 1 tablet by mouth once daily. SITagliptin (JANUVIA) 100 mg tablet Take 1 tablet by mouth once daily. pioglitazone (ACTOS) 15 mg tablet Take 1 tablet by mouth once daily. sertraline (ZOLOFT) 50 mg tablet Take 1 tablet by mouth once daily. omeprazole (PRILOSEC) 20 mg capsule Take 2 capsules by mouth once daily. insulin glargine (LANTUS SOLOSTAR, BASAGLAR KWIKPEN) 100 unit/mL (3 mL) Inject 30 Units subcutaneously every morning. levothyroxine (SYNTHROID) 50 mcg tablet Take 1 tablet by mouth once daily. Take on empty stomach. For Thyroid. Lancets lancets One Touch Test blood sugar(s) 2 times daily. Dx: Type 2 DM - Controlled E11.9 Insulin: Yes blood sugar diagnostic (BLOOD GLUCOSE TEST) test strip Test blood sugar(s) 2 times daily. Dx: Type 2 DM - Uncontrolled E11.65 Insulin: Yes CPAP Pt device on recall list. Given findings on eval, would like pt to be changed to an AutoPAP device with humidity set at 10-16 cmH2O. Please provide download in 4 weeks. Also with mask leaks and please try to fit with dreamwear under nose FFM. hydrOXYzine HCl (ATARAX) 25 mg tablet Take 1 tablet by mouth every 6 hours as needed for anxiety. Cholecalciferol, Vitamin D3, (VITAMIN D-3) 50 mcg (2,000 unit) cap Take 1 capsule by mouth once daily. MULTIVITAMIN ORAL Take 1 tablet by mouth once daily. COMPOUNDED PRESCRIPTION Diabetic shoes No current facility-administered medications for this visit. ALLERGIES: ALLERGIES Allergen Reactions Amoxicillin Other: See Comments Bleach (Sodium Hypo* Hives Penicillins Other: See Comments Sulfa (Sulfonamide * Rash & dry heaves. PAST MEDICAL HISTORY Diagnosis Date Arthralgia Chronic back pain Depression Developmental delay Diabetic neuropathy (HCC) feet DM (diabetes mellitus) (HCC) Hypertension Hypothyroid Mental disorder Snoring PAST SURGICAL HISTORY Procedure Laterality Date COLONOSCOPY FLX DX W/COLLJ SPEC WHEN PFRMD 09/23/2018 Colonoscopy HYSTERECTOMY N/A XCAPSL CTRC RMVL INSJ IO LENS PROSTH CPLX WO ECP FAMILY HISTORY Problem Relation Age of Onset Arthritis Mother Diabetes Mother Hypertension Mother Hyperlipidemia Mother Social History Tobacco Use Smoking status: Never Smokeless tobacco: Never Vaping Use Vaping Use: Never used Substance Use Topics Alcohol use: No Drug use: No Reviewed current medications, allergies, past medical history, surgical history, family history andsocial history today. REVIEW OF SYSTEMS All other reviewed and negative other than HPI. HEALTH MAINTENANCE: Reviewed health maintenance issues today and recommended the following in detail. HEPATITIS B(1 of 3 - 3-dose series) Never done SHINGRIX VACCINE(1 of 2) Never done PNEUMOCOCCAL(2 - PCV) due on 09/19/2021 COVID-19 VACCINE(4 - Booster for Pfizer series) due on 12/25/2021 DILATED RETINAL EXAM -did have her eye exam. Sees Dr Hernandez DIABETIC FOOT EXAM due on 10/21/2022 MAMMOGRAM due on 12/16/2022 VITALS: BP 170/88 Pulse 68 Ht 152.4 cm (5') Wt 91.1 kg (200 lb 12.8 oz) SpO2 99% BMI 39.22 kg/m Last 4 Encounter Wt Readings: Date: Wt: 08/12/2022 88.9 kg (196 lb) 08/01/2022 90.4 kg (199 lb 3.2 oz) 07/08/2022 89.4 kg (197 lb) 05/05/2022 91.5 kg (201 lb 12.8 oz) PHYSICAL EXAMINATION: General appearance: Well appearing, alert, in no acute distress, well-hydrated, well nourished. Skin: has a blister on the end of middle toe on right foot. Looks to be healing well. Red flags forre-assessment reviewed with patient in detail. Head: Normocephalic, no masses, lesions, tenderness or abnormalities Lungs: Lungs clear to auscultation. No wheezing, rhonchi, rales Heart: RRR without murmur, gallop, or rubs. No ectopy Abdomen: Normal abdominal exam, Abdomen soft, non-tender. Bowel sounds normal. No masses, organomegaly Feet:Shoes and socks removed, normal distal pulses, and not sensitive to monofilament bilaterally. ASSESSMENT/PLAN: 1. Type 2 diabetes mellitus with diabetic neuropathy, unspecified whether halfway insulin use (HCC) - ICD9: 250.60, 357.2, ICD10: E11.40 (primary diagnosis) Controlled. - Continue current medications - discussed foot care 2. Mixed hyperlipidemia - ICD9: 272.2, ICD10: E78.2 - good control - Continue current medication. 3. Essential hypertension, benign - ICD9: 401.1, ICD10: I10 - suboptimal control - bp check in one month - Goal of BP <130/80 4. Severe sleep apnea - ICD9: 780.57, ICD10: G47.30 - continue cpap 5. Vitamin B 12 deficiency - ICD9: 266.2, ICD10: E53.8 - check labs. 6. Acquired hypothyroidism - ICD9: 244.9, ICD10: E03.9 - doing well. 7. Depression, unspecified depression type - ICD9: 311, ICD10: F32.A - stable 8. Encounter for screening mammogram for malignant neoplasm of breast - ICD9: V76.12, ICD10: Z12.31 - Follow up for annual exam in one year. - GAMALIEL SCREENING Ranjeet Goodwin MD RTO in six months and prn. documented in this encounterA[facility]01-06-2023 Miscellaneous Notes* Telephone Encounter - Layton Wu LPN - 10/31/2022 9:11 AM EST SHEIL[place] 10/10/22 NOV 11/10/22 * Telephone Encounter - Hazel Dang - 10/30/2022 4:39 PM EST Patient has been identified by name and date of : Yes Last office visit in this department: Visit date not found RX INSTRUCTIONS: Pharmacy initiated this request. No need to notify patient. Patient phones requesting refills as follows: Requested Prescriptions Pending Prescriptions Disp Refills Insulin [place], Disposable, (BD ULTRA-FINE ROSALIE PEN NEEDLE) 32 gauge x 5/32 100 Each 5 Sig: Use to inject insulin once daily as directed Please review and advise. Hazel Dang documented in this encounterAultman [facility]12-16-2022 Instructions* Patient Instructions* Odalys Brock APRN.CNP - 10/10/2022 11:38 AM EST Start the antibiotic cream to the right hand. Get fasting labwork. Follow-up with Dr. Goodwin, as scheduled. documented in this encounterAultman [facility]12-16-2022 History of Present illness Narrative* Odalys Brock APRN.CNP - 10/10/2022 11:25 AM EST This is a 57 year old female who presents today with: Patient presents with: Acute Visit: Skin infection on R hand x2 weeks, requesting refill of atb ointment rx'd by Dr. Goodwin HISTORY OF PRESENT ILLNESS: Arcenio Rand is a 57 year old female. Patient presents with: Acute Visit: Skin infection on R hand x2 weeks, requesting refill of atb ointment rx'd by Dr. Goodwin Refers that she has a couple of open areas on the right hand X 2 weeks. Refers that she burnt herself with steam while cooking. She is requesting a refill of the bactroban. No drainage from the area. Some itch. PAST MEDICAL HISTORY: PAST MEDICAL HISTORY Diagnosis Date Arthralgia Chronic back pain Depression Developmental delay Diabetic neuropathy (HCC) feet DM (diabetes mellitus) (HCC) Hypertension Hypothyroid Mental disorder Snoring PAST SURGICAL HISTORY Procedure Laterality Date COLONOSCOPY FLX DX W/COLLJ SPEC WHEN PFRMD 09/23/2018 Colonoscopy HYSTERECTOMY N/A XCAPSL CTRC RMVL INSJ IO LENS PROSTH CPLX WO ECP ALLERGIES Amoxicillin, Bleach (Sodium Hypochlorite), Penicillins, and Sulfa (Sulfonamide Antibiotics) MEDICATIONS Current Outpatient Medications Medication Sig lisinopril (PRINIVIL) 20 mg tablet Take 1 tablet by mouth once daily. aspirin, enteric coated (ASPIRIN, ENTERIC COATED) 81 mg EC tablet Take 1 tablet by mouth once daily. (self-started) multivitamin-ferrous fumarate-folic acid (CENTRUM) Take 1 tablet by mouth once daily. cyanocobalamin (VITAMIN B-12) 1,000 mcg tab Take 1 tablet by mouth once daily. celecoxib (CELEBREX) 200 mg capsule Take 1 capsule by mouth once daily. DULoxetine (CYMBALTA) 60 mg capsule Take 1 capsule by mouth once daily. empagliflozin (JARDIANCE) 25 mg tablet Take 1 tablet by mouth once daily. metFORMIN ER (GLUCOPHAGE XR) 500 mg 24 hr tablet Take 2 tablet by mouth twice daily with food. atenolol (TENORMIN) 100 mg tablet Take 1 tablet by mouth once daily. atorvastatin (LIPITOR) 20 mg tablet Take 1 tablet by mouth daily at bedtime. For cholesterol. estradiol (ESTRACE) 1 mg tablet Take 1 tablet by mouth once daily. SITagliptin (JANUVIA) 100 mg tablet Take 1 tablet by mouth once daily. pioglitazone (ACTOS) 15 mg tablet Take 1 tablet by mouth once daily. sertraline (ZOLOFT) 50 mg tablet Take 1 tablet by mouth once daily. omeprazole (PRILOSEC) 20 mg capsule Take 2 capsules by mouth once daily. insulin glargine (LANTUS SOLOSTAR, BASAGLAR KWIKPEN) 100 unit/mL (3 mL) Inject 30 Units subcutaneously every morning. levothyroxine (SYNTHROID) 50 mcg tablet Take 1 tablet by mouth once daily. Take on empty stomach. For Thyroid. Insulin [place], Disposable, (BD ULTRA-FINE ROSALIE PEN NEEDLE) 32 gauge x Use to inject insulinonce daily as directed Lancets lancets One Touch Test blood sugar(s) 2 times daily. Dx: Type 2 DM - Controlled E11.9 Insulin: Yes blood sugar diagnostic (BLOOD GLUCOSE TEST) test strip Test blood sugar(s) 2 times daily. Dx: Type 2 DM - Uncontrolled E11.65 Insulin: Yes CPAP Pt device on recall list. Given findings on eval, would like pt to be changed to an AutoPAP device with humidity set at 10-16 cmH2O. Please provide download in 4 weeks. Also with mask leaks and please try to fit with dreamwear under nose FFM. hydrOXYzine HCl (ATARAX) 25 mg tablet Take 1 tablet by mouth every 6 hours as needed for anxiety. Cholecalciferol, Vitamin D3, (VITAMIN D-3) 50 mcg (2,000 unit) cap Take 1 capsule by mouth once daily. MULTIVITAMIN ORAL Take 1 tablet by mouth once daily. COMPOUNDED PRESCRIPTION Diabetic shoes No current facility-administered medications for this visit. FAMILY HISTORY Problem Relation Age of Onset Arthritis Mother Diabetes Mother Hypertension Mother Hyperlipidemia Mother Social History Tobacco Use Smoking status: Never Smokeless tobacco: Never Vaping Use Vaping Use: Never used Substance Use Topics Alcohol use: No Drug use: No EXAM: BP 138/94 Pulse (!) 59 Resp 18 SpO2 96% PHYSICAL EXAM: General Appearance: Well appearing, alert, in no acute distress, well-hydrated, well nourished.. Skin: Skin color, texture, turgor normal, no suspicious rashes or lesions. 3 superficial open areason the dorsal aspect of the right hand. No drainage. Not angry. No increased warmth. Head: Normocephalic, no masses, lesions, tenderness or abnormalities. Eyes: Anicteric sclera. Pupils are equally round and reactive to light. Extraocular movements are intact. . Extremities: No deformities, edema, skin discoloration, clubbing or cyanosis. Good capillary refill. . Neurologic: Gait normal. ASSESSMENT/PLAN: 1. Open wound of skin - ICD9: 879.8, ICD10: T14.8XXA (primary diagnosis) Refill bactroban. No s/s of infection. - MUPIROCIN CALCIUM 2 % TOPICAL CREAM 2. Encounter for immunization - ICD9: V03.89, ICD10: Z23 - INFLUENZA VACCINE QUADRIVALENT 6 MO - 64 YRS IM 3. Type 2 diabetes mellitus with diabetic neuropathy, without long-term current use of insulin (HCC) - ICD9: 250.60, 357.2, ICD10: E11.40 Requesting a new meter. Has upcoming appt -- labs ordered. - HGB A1C - ALBUMIN/CREAT RATIO RND UR - BLOOD-GLUCOSE METER KIT - BLOOD GLUCOSE TEST STRIPS 4. Hyperlipidemia, unspecified hyperlipidemia type - ICD9: 272.4, ICD10: E78.5 As above. - COMP METABOLIC PANEL - LIPID PANEL BASIC 5. Acquired hypothyroidism - ICD9: 244.9, ICD10: E03.9 Due for labs. - CBC + DIFF - TSH BLD Discussed treatment plan and patient voices understanding. Patient's questions answered appropriately. Medications and potential side effects were discussed and patient voices understanding. Return to the office as scheduled or as needed for worsening/no improvement. Odalys Brock APRN.CNP The patient indicates understanding of these issues and agrees with the plan. documented in this encounterAultman [facility]12-15-2022 Miscellaneous Notes* Telephone Encounter - Mariluz Hyatt LPN - 10/09/2022 10:46 AM EST Spoke with pt and information listed below given. Pt verbalizes understanding. This request was for a skin infection on top of her hand. Pt declined apt today. Does not have a ride. Apt booked for tomorrow 10-10-22. Mariluz Hyatt LPN * Telephone Encounter - Chanel James LPN - 10/08/2022 5:32 PM EST TC to pt. LM to call office, ask for triage nurse to triage reason for requesting the Bactroban oint. Chanel James LPN * Telephone Encounter - Odalys Brock APRN.CNP - 10/08/2022 5:06 PM EST Reason? If she has a skin infection, it should be evaluated. Odalys Brock APRN.CNP * Telephone Encounter - Layton Wu LPN - 10/08/2022 3:52 PM EST [place] 08/12/22 with [employer] * Telephone Encounter - Hazel Hansen Pss - 10/08/2022 3:45 PM EST Patient is requesting a refill of mupirocin (BACTROBAN) 2 % cream sent to [facility] in [place] documented in this encounterAultman [facility]12-08-2022 Miscellaneous Notes* Telephone Encounter - Renetta Villa RN - 10/02/2022 11:32 AM EST Patient has been identified by name and date of : Yes Pharmacy phones for refill(s): Requested Prescriptions Pending Prescriptions Disp Refills lisinopril (PRINIVIL) 20 mg tablet 90 tablet 3 Sig: Take 1 tablet by mouth once daily. aspirin, enteric coated (ASPIRIN, ENTERIC COATED) 81 mg EC tablet 90 tablet 3 Sig: Take 1 tablet by mouth once daily. (self-started) multivitamin-ferrous fumarate-folic acid (CENTRUM) 90 tablet 3 Sig: Take 1 tablet by mouth once daily. cyanocobalamin (VITAMIN B-12) 1,000 mcg tab 90 tablet 3 Sig: Take 1 tablet by mouth once daily. Date of last office visit in primary care: 08/12/22 Future visit: 11/10/22 Last 2 Encounter Wt Readings: Date: Wt: 08/12/2022 88.9 kg (196 lb) 08/01/2022 90.4 kg (199 lb 3.2 oz) Previous labs/tests for medication: Blood Pressure: BUN (mg/dL) Date Value 10/05/2021 21 Sodium (mmol/L) Date Value 10/05/2021 140 Last 1 Encounter BP Readings: Date: BP: 08/12/2022 128/82 Please advise. Thank you. Renetta Villa RN documented in this encounterAultman [facility]11-11-2022 Miscellaneous Notes* Telephone Encounter - Viviana Hummel RN - 09/05/2022 3:33 PM EST Last Office Visit: 08/12/2022 Future Office Visit: 11/10/2022 Requested Prescriptions Pending Prescriptions Disp Refills celecoxib (CELEBREX) 200 mg capsule 30 capsule 2 Sig: Take 1 capsule by mouth once daily. DULoxetine (CYMBALTA) 60 mg capsule 90 capsule 1 Sig: Take 1 capsule by mouth once daily. Date of Last Labs: 10/21/2021 documented in this encounterAultman [facility]11-09-2022 History of Present illness Narrative* Donya Boudreaux MA - 09/03/2022 2:41 PM EST POPULATION HEALTH NAVIGATION OUTREACH Action/ Outcome: 1st attempt- Left Voice Mail for patient to return my call to schedule. 2nd attempt- MYCHART message sent. [facility] CARE GAPS: Annual Exam/PCP visit/ BP /- already scheduled 11/10/2022 Flu Shot Diabetic Retinal Exam Pt identified by name and : NO Outreach Outcome/Action Unable to reach patient: Left message MyChart message sent Advance Directives sent Did you use a PCP flex slot to schedule this appointment? N/A Reason for Outreach Care Gap or Scheduling/Wellness visits Payer: Payor: [facility] MEDICARE / Plan: [facility] DUAL COMPLETE HMO SNP / Product Type: Medicare / Care Gap Reviewed:: Diabetic Eye Exam Flu vaccine Reminder: Reminder note to check Health Maintenance for items below Health Maintenance items due: HEPATITIS B(1 of 3 - 3-dose series) Never done BP CONTROLLED (<130/80) Never done SHINGRIX VACCINE(1 of 2) Never done PNEUMOCOCCAL(2 - PCV) due on 09/19/2021 COVID-19 VACCINE(4 - Booster for Pfizer series) due on 12/25/2021 DILATED RETINAL EXAM due on 05/07/2022 INFLUENZA(1) due on 06/26/2022 Message Sent to Practice: No Navigation Signature: Donya Boudreaux September 03, 2022 2:41 PM documented in this encounterAultman [facility]10-18-2022 Instructions* Patient Instructions* Odalys Brock APRN.CNP - 08/12/2022 11:16 AM EDT Start Flexeril at bedtime and not with tylenol PM Do gentle stretching Apply ice and heat as needed Return if symptoms get worse or don't improve documented in this encounterAultman [facility]10-18-2022 History of Present illness Narrative* Odalys Brock APRN.CNP - 08/12/2022 11:03 AM EDT This is a 57 year old female who presents today with: Patient presents with: Recheck: Follow up L shoulder pain, reinjured shoulder HISTORY OF PRESENT ILLNESS: Arcenio Radn is a 57 year old female. Patient presents with: Recheck: Follow up L shoulder pain, reinjured shoulder Pt states chronic left shoulder pain that was under control with Celebrex, but last night she was helping someone into bed and reinjured her shoulder. C/O left posterior pain in the shoulder blade.Pt states she took tylenol PM & used a massager with no relief and tossed and turned all night.Denies numbness/tingling. Pt is right hand dominant. PAST MEDICAL HISTORY: PAST MEDICAL HISTORY Diagnosis Date Arthralgia Chronic back pain Depression Developmental delay Diabetic neuropathy (HCC) feet DM (diabetes mellitus) (HCC) Hypertension Hypothyroid Mental disorder Snoring PAST SURGICAL HISTORY Procedure Laterality Date COLONOSCOPY FLX DX W/COLLJ SPEC WHEN PFRMD 09/23/2018 Colonoscopy HYSTERECTOMY N/A XCAPSL CTRC RMVL INSJ IO LENS PROSTH CPLX WO ECP ALLERGIES Amoxicillin, Bleach (Sodium Hypochlorite), Penicillins, and Sulfa (Sulfonamide Antibiotics) MEDICATIONS Current Outpatient Medications Medication Sig empagliflozin (JARDIANCE) 25 mg tablet Take 1 tablet by mouth once daily. metFORMIN ER (GLUCOPHAGE XR) 500 mg 24 hr tablet Take 2 tablet by mouth twice daily with food. atenolol (TENORMIN) 100 mg tablet Take 1 tablet by mouth once daily. atorvastatin (LIPITOR) 20 mg tablet Take 1 tablet by mouth daily at bedtime. For cholesterol. estradiol (ESTRACE) 1 mg tablet Take 1 tablet by mouth once daily. SITagliptin (JANUVIA) 100 mg tablet Take 1 tablet by mouth once daily. pioglitazone (ACTOS) 15 mg tablet Take 1 tablet by mouth once daily. sertraline (ZOLOFT) 50 mg tablet Take 1 tablet by mouth once daily. omeprazole (PRILOSEC) 20 mg capsule Take 2 capsules by mouth once daily. celecoxib (CELEBREX) 200 mg capsule Take 1 capsule by mouth once daily. insulin glargine (LANTUS SOLOSTAR, BASAGLAR KWIKPEN) 100 unit/mL (3 mL) Inject 30 Units subcutaneously every morning. levothyroxine (SYNTHROID) 50 mcg tablet Take 1 tablet by mouth once daily. Take on empty stomach. For Thyroid. Insulin [place], Disposable, (BD ULTRA-FINE ROSALIE PEN NEEDLE) 32 gauge x Use to inject insulinonce daily as directed Lancets lancets One Touch Test blood sugar(s) 2 times daily. Dx: Type 2 DM - Controlled E11.9 Insulin: Yes blood sugar diagnostic (BLOOD GLUCOSE TEST) test strip Test blood sugar(s) 2 times daily. Dx: Type 2 DM - Uncontrolled E11.65 Insulin: Yes lisinopril (PRINIVIL) 20 mg tablet Take 1 tablet by mouth once daily. DULoxetine (CYMBALTA) 60 mg capsule Take 1 capsule by mouth once daily. aspirin, enteric coated (ASPIRIN, ENTERIC COATED) 81 mg EC tablet Take 1 tablet by mouth once daily. (self-started) multivitamin-ferrous fumarate-folic acid (CENTRUM) Take 1 tablet by mouth once daily. cyanocobalamin (VITAMIN B-12) 1,000 mcg tab Take 1 tablet by mouth once daily. CPAP Pt device on recall list. Given findings on eval, would like pt to be changed to an AutoPAP device with humidity set at 10-16 cmH2O. Please provide download in 4 weeks. Also with mask leaks and please try to fit with dreamwear under nose FFM. hydrOXYzine HCl (ATARAX) 25 mg tablet Take 1 tablet by mouth every 6 hours as needed for anxiety. Cholecalciferol, Vitamin D3, (VITAMIN D-3) 50 mcg (2,000 unit) cap Take 1 capsule by mouth once daily. MULTIVITAMIN ORAL Take 1 tablet by mouth once daily. COMPOUNDED PRESCRIPTION Diabetic shoes No current facility-administered medications for this visit. FAMILY HISTORY Problem Relation Age of Onset Arthritis Mother Diabetes Mother Hypertension Mother Hyperlipidemia Mother Social History Tobacco Use Smoking status: Never Smokeless tobacco: Never Vaping Use Vaping Use: Never used Substance Use Topics Alcohol use: No Drug use: No EXAM: BP 128/82 Pulse (!) 59 Resp 18 Wt 88.9 kg (196 lb) SpO2 98% BMI 38.28 kg/m PHYSICAL EXAM: General Appearance: Well appearing, alert, in no acute distress, well-hydrated, well nourished.. Skin: Skin color, texture, turgor normal, no suspicious rashes or lesions. Head: Normocephalic, no masses, lesions, tenderness or abnormalities. Eyes: Anicteric sclera. Pupils are equally round and reactive to light. Extraocular movements are intact. . Lungs: Lungs clear to auscultation. No wheezing, rhonchi, rales.. Heart: RRR without murmur, gallop, or rubs. No ectopy. Extremities: No deformities, edema, skin discoloration, clubbing or cyanosis. Good capillary refill. Shoulder : Location: left posterior shoulder Redness: no Warmth: no Tenderness to palpation: yes -- anterior/posterior shoulder. Swelling: no Range of motion: limited abduction and forward flexion to appx 100 degrees. Some discomfort with internal/external rotation. Empty can test: negative Neurologic: Gait normal. ASSESSMENT/PLAN: 1. Acute pain of left shoulder - ICD9: 719.41, ICD10: M25.512 Continue the Celebrex. We will go ahead and start Flexeril at bedtime as needed for the next 2 weeks. She is aware to not use this in conjunction with any other medications, such as the Tylenol PM, that can make her tired. Discussed moist heat/ice. Shoulder exercises reviewed. Gentle stretching. Notify provider if no improvement or worsening. - CYCLOBENZAPRINE 10 MG TABLET Discussed treatment plan and patient voices understanding. Patient's questions answered appropriately. Medications and potential side effects were discussed and patient voices understanding. Return to the office as scheduled or as needed for worsening/no improvement. Odalys Brock APRN.ZIGGY documented in this encounterA[facility]10-14-[facility]22 Miscellaneous Notes* Telephone Encounter - Lucy Coronel LPN - 08/08/2022 4:15 PM EDT Patient has been identified by name and date of : Yes Pharmacy phones for refill(s): Requested Prescriptions Pending Prescriptions Disp Refills empagliflozin (JARDIANCE) 25 mg tablet 90 tablet 1 Sig: Take 1 tablet by mouth once daily. metFORMIN ER (GLUCOPHAGE XR) 500 mg 24 hr tablet 360 tablet 1 Sig: Take 2 tablet by mouth twice daily with food. atenolol (TENORMIN) 100 mg tablet 90 tablet 1 Sig: Take 1 tablet by mouth once daily. atorvastatin (LIPITOR) 20 mg tablet 90 tablet 1 Sig: Take 1 tablet by mouth daily at bedtime. For cholesterol. estradiol (ESTRACE) 1 mg tablet 90 tablet 1 Sig: Take 1 tablet by mouth once daily. SITagliptin (JANUVIA) 100 mg tablet 90 tablet 1 Sig: Take 1 tablet by mouth once daily. pioglitazone (ACTOS) 15 mg tablet 90 tablet 1 Sig: Take 1 tablet by mouth once daily. Date of last office visit in primary care: 07/08/22 Last 2 Encounter Wt Readings: Date: Wt: 08/01/2022 90.4 kg (199 lb 3.2 oz) 07/08/2022 89.4 kg (197 lb) Previous labs/tests for medication: Not applicable Please advise. Thank you. Lucy Coronel LPN documented in this encounterA[facility]10-07-[facility]22 History of Present illness Narrative* Catherine Calvo RT(R) - 08/01/2022 9:20 AM EDT Radiology Service Progress Note PATIENT NAME: Arcenio Rand DATE OF SERVICE: August 01, 2022 TIME: 9:12 AM PATIENT IDENTITY VERIFICATION COMPLETED USING TWO (2) IDENTIFIERS: Name and Date of confirmedby patient verbally. FALL SCREENING: Has the patient had 2 falls in the last year or 1 fall with injury or currently using an Ambulatory Assistive Device (Walker, Cane, Wheelchair, Crutches, etc.)? No PATIENT GENDER DATA: Female. status: : No status: NO. PATIENT RELEVANT IMPLANT DATA REVIEWED: Not Applicable RADIOLOGY DEPARTMENT: General X-ray: Exam(s) Completed: Upper Extremity X- Ray(s): Fingers/Thumb, right PERIPHERAL IV DATA: Not applicable SIGNED BY: RT Memo(R) August 01, 2022 9:12 AM documented in this encounterAultman [facility]10-07-2022 History of Present illness Narrative* Grzegorz Ortiz MD - 08/01/2022 9:03 AM EDT Patient presents with: right index finger pain: Caught it car door this am HPI: Right index finger pain: Duration: pinched finger in car door this morning Location: right index finger middle phalange Character: sharp Radiation: finger tip tingles Aggravating: touching and bending Relieving: Pain relievers: none MEDICATIONS: sertraline (ZOLOFT) 50 mg tablet Take 1 tablet by mouth once daily. omeprazole (PRILOSEC) 20 mg capsule Take 2 capsules by mouth once daily. celecoxib (CELEBREX) 200 mg capsule Take 1 capsule by mouth once daily. insulin glargine (LANTUS SOLOSTAR, BASAGLAR KWIKPEN) 100 unit/mL (3 mL) Inject 30 Units subcutaneously every morning. levothyroxine (SYNTHROID) 50 mcg tablet Take 1 tablet by mouth once daily. Take on empty stomach. For Thyroid. Insulin [place], Disposable, (BD ULTRA-FINE ROSALIE PEN NEEDLE) 32 gauge x 5/32 Use to inject insulinonce daily as directed Lancets lancets One Touch Test blood sugar(s) 2 times daily. Dx: Type 2 DM - Controlled E11.9 Insulin: Yes blood sugar diagnostic (BLOOD GLUCOSE TEST) test strip Test blood sugar(s) 2 times daily. Dx: Type 2 DM - Uncontrolled E11.65 Insulin: Yes lisinopril (PRINIVIL) 20 mg tablet Take 1 tablet by mouth once daily. estradiol (ESTRACE) 1 mg tablet Take 1 tablet by mouth once daily. atenolol (TENORMIN) 100 mg tablet Take 1 tablet by mouth once daily. atorvastatin (LIPITOR) 20 mg tablet Take 1 tablet by mouth daily at bedtime. For cholesterol. DULoxetine (CYMBALTA) 60 mg capsule Take 1 capsule by mouth once daily. empagliflozin (JARDIANCE) 25 mg tablet Take 1 tablet by mouth once daily. metFORMIN ER (GLUCOPHAGE XR) 500 mg 24 hr tablet Take 2 tablet by mouth twice daily with food. pioglitazone (ACTOS) 15 mg tablet Take 1 tablet by mouth once daily. SITagliptin (JANUVIA) 100 mg tablet Take 1 tablet by mouth once daily. aspirin, enteric coated (ASPIRIN, ENTERIC COATED) 81 mg EC tablet Take 1 tablet by mouth once daily. (self-started) multivitamin-ferrous fumarate-folic acid (CENTRUM) Take 1 tablet by mouth once daily. cyanocobalamin (VITAMIN B-12) 1,000 mcg tab Take 1 tablet by mouth once daily. CPAP Pt device on recall list. Given findings on eval, would like pt to be changed to an AutoPAP device with humidity set at 10-16 cmH2O. Please provide download in 4 weeks. Also with mask leaks and please try to fit with dreamwear under nose FFM. hydrOXYzine HCl (ATARAX) 25 mg tablet Take 1 tablet by mouth every 6 hours as needed for anxiety. Cholecalciferol, Vitamin D3, (VITAMIN D-3) 50 mcg (2,000 unit) cap Take 1 capsule by mouth once daily. MULTIVITAMIN ORAL Take 1 tablet by mouth once daily. COMPOUNDED PRESCRIPTION Diabetic shoes ALLERGIES: ALLERGIES Allergen Reactions Amoxicillin Other: See Comments Bleach (Sodium Hypo* Hives Penicillins Other: See Comments Sulfa (Sulfonamide * Rash & dry heaves. VITALS: BP 122/78 Pulse 64 Temp 36.6 C (97.9 F) (Tympanic) Resp 18 Wt 90.4 kg (199 lb 3.2 oz) SpO2 100% BMI 38.90 kg/m PE: Pleasant, in no acute distress. Finger: right index. No erythema, edema, ecchymosis, or deformity. Pain with flexing. Tender middlephalange. Non-tender proximal and distal phalange. ASSESSMENT/PLAN: 1. Finger pain, right - ICD9: 729.5, ICD10: M79.644 - XR DIGIT GENERAL 3V FRONTAL/LAT/OBL RIGHT - negative. Finger contusion. Rest, ice, analgesia. Grzegorz Ortiz MD documented in this encounterA[facility]09-16-2022 Miscellaneous Notes* Telephone Encounter - Evy Christina RN - 07/11/2022 4:37 PM EDT Patient has been identified by name and date of : Yes Pharmacy phones for refill(s): Requested Prescriptions Pending Prescriptions Disp Refills omeprazole (PRILOSEC) 20 mg capsule 60 capsule 11 Sig: Take 2 capsules by mouth once daily. Date of last office visit with pcp: 07/08/2022 Future appt: 08/12/2022 Last 2 Encounter Wt Readings: Date: Wt: 07/08/2022 89.4 kg (197 lb) 05/05/2022 91.5 kg (201 lb 12.8 oz) Previous labs/tests for medication: Blood Pressure: BUN (mg/dL) Date Value 10/05/2021 21 Sodium (mmol/L) Date Value 10/05/2021 140 Last 1 Encounter BP Readings: Date: BP: 07/08/2022 134/90 Liver Function: ALT (U/L) Date Value 10/05/2021 17 AST (U/L) Date Value 10/05/2021 22 Please advise. Thank you. Evy Christina RN documented in this encounterA[facility]09-13-2022 Instructions* Patient Instructions* Odalys Brock APRN.CNP - 07/08/2022 3:47 PM EDT Stop meloxicam. Start the celebrex. Recheck in 1 month. If no better/worsening, consider referral to ortho. documented in this encounterA[facility]man [facility]09-13-2022 History of Present illness Narrative* Odalys Brock APRN.CNP - 07/08/2022 3:23 PM EDT This is a 57 year old female who presents today with: Patient presents with: Pain (Shoulder Pain): L shoulder pain; finished PT HISTORY OF PRESENT ILLNESS: Arcenio Rand is a 57 year old female. Patient presents with: Pain (Shoulder Pain): L shoulder pain; finished PT Pt presents today with complaint of continued left shoulder pain. Refers that her left shoulder is still hurting. Refers that she feels the pain over her shoulder blade. Refers rain/dampness makes the shoulder feel worse. Refers heat helps the pain. She also uses a tens unit, which helps. She went to physical therapy. Continues with intermittent pain. PAST MEDICAL HISTORY: PAST MEDICAL HISTORY Diagnosis Date Arthralgia Chronic back pain Depression Developmental delay Diabetic neuropathy (HCC) feet DM (diabetes mellitus) (HCC) Hypertension Hypothyroid Mental disorder Snoring PAST SURGICAL HISTORY Procedure Laterality Date COLONOSCOPY FLX DX W/COLLJ SPEC WHEN PFRMD 09/23/2018 Colonoscopy HYSTERECTOMY N/A XCAPSL CTRC RMVL INSJ IO LENS PROSTH CPLX WO ECP ALLERGIES Amoxicillin, Bleach (Sodium Hypochlorite), Penicillins, and Sulfa (Sulfonamide Antibiotics) MEDICATIONS Current Outpatient Medications Medication Sig insulin glargine (LANTUS SOLOSTAR, BASAGLAR KWIKPEN) 100 unit/mL (3 mL) Inject 30 Units subcutaneously every morning. levothyroxine (SYNTHROID) 50 mcg tablet Take 1 tablet by mouth once daily. Take on empty stomach. For Thyroid. Insulin [place], Disposable, (BD ULTRA-FINE ROSALIE PEN NEEDLE) 32 gauge x 5/32 Use to inject insulinonce daily as directed Lancets lancets One Touch Test blood sugar(s) 2 times daily. Dx: Type 2 DM - Controlled E11.9 Insulin: Yes blood sugar diagnostic (BLOOD GLUCOSE TEST) test strip Test blood sugar(s) 2 times daily. Dx: Type 2 DM - Uncontrolled E11.65 Insulin: Yes lisinopril (PRINIVIL) 20 mg tablet Take 1 tablet by mouth once daily. meloxicam (MOBIC) 15 mg tablet Take 1 tablet by mouth once daily. With food. sertraline (ZOLOFT) 50 mg tablet Take 1 tablet by mouth once daily. estradiol (ESTRACE) 1 mg tablet Take 1 tablet by mouth once daily. atenolol (TENORMIN) 100 mg tablet Take 1 tablet by mouth once daily. atorvastatin (LIPITOR) 20 mg tablet Take 1 tablet by mouth daily at bedtime. For cholesterol. DULoxetine (CYMBALTA) 60 mg capsule Take 1 capsule by mouth once daily. empagliflozin (JARDIANCE) 25 mg tablet Take 1 tablet by mouth once daily. metFORMIN ER (GLUCOPHAGE XR) 500 mg 24 hr tablet Take 2 tablet by mouth twice daily with food. pioglitazone (ACTOS) 15 mg tablet Take 1 tablet by mouth once daily. SITagliptin (JANUVIA) 100 mg tablet Take 1 tablet by mouth once daily. aspirin, enteric coated (ASPIRIN, ENTERIC COATED) 81 mg EC tablet Take 1 tablet by mouth once daily. (self-started) multivitamin-ferrous fumarate-folic acid (CENTRUM) Take 1 tablet by mouth once daily. cyanocobalamin (VITAMIN B-12) 1,000 mcg tab Take 1 tablet by mouth once daily. CPAP Pt device on recall list. Given findings on eval, would like pt to be changed to an AutoPAP device with humidity set at 10-16 cmH2O. Please provide download in 4 weeks. Also with mask leaks and please try to fit with dreamwear under nose FFM. omeprazole (PRILOSEC) 20 mg capsule Take 2 capsules by mouth once daily. hydrOXYzine HCl (ATARAX) 25 mg tablet Take 1 tablet by mouth every 6 hours as needed for anxiety. Cholecalciferol, Vitamin D3, (VITAMIN D-3) 50 mcg (2,000 unit) cap Take 1 capsule by mouth once daily. MULTIVITAMIN ORAL Take 1 tablet by mouth once daily. COMPOUNDED PRESCRIPTION Diabetic shoes No current facility-administered medications for this visit. FAMILY HISTORY Problem Relation Age of Onset Arthritis Mother Diabetes Mother Hypertension Mother Hyperlipidemia Mother Social History Tobacco Use Smoking status: Never Smokeless tobacco: Never Vaping Use Vaping Use: Never used Substance Use Topics Alcohol use: No Drug use: No EXAM: BP 134/90 Pulse (!) 55 Resp 18 Wt 89.4 kg (197 lb) SpO2 96% BMI 38.47 kg/m PHYSICAL EXAM: General Appearance: Well appearing, alert, in no acute distress, well-hydrated, well nourished.. Skin: Skin color, texture, turgor normal, no suspicious rashes or lesions. Head: Normocephalic, no masses, lesions, tenderness or abnormalities. Eyes: Anicteric sclera. Extraocular movements are intact. . Lungs: Lungs clear to auscultation. No wheezing, rhonchi, rales.. Heart: RRR without murmur, gallop, or rubs. No ectopy. Extremities: No deformities, edema, skin discoloration, clubbing or cyanosis. Good capillary refill. Neurologic: Gait normal. Shoulder : Location: left AC joint and left trap. Redness: no Warmth: no Tenderness to palpation: yes in the trap Swelling: no Range of motion: limited abduction and flexion. Empty can test: negative. ASSESSMENT/PLAN: 1. Chronic left shoulder pain - ICD9: 719.41, 338.29, ICD10: M25.512, G89.29 Stop the meloxicam. Start Celebrex. Update provider in a week. If no improvement consider referral to Ortho. - CELECOXIB 200 MG CAPSULE Discussed treatment plan and patient voices understanding. Patient's questions answered appropriately. Medications and potential side effects were discussed and patient voices understanding. Return to the office as scheduled or as needed for worsening/no improvement. Odalys Brock APRN.[employer] PICKLING EQUIPMENT OPERATOR The patient indicates understanding of these issues and agrees with the plan. This note was partially generated using Transfer To voice recognition system. Note was reviewed for accuracy. There may be minor misspellings or grammar miscues with Transfer To voice recognition. documented in this encounterAultman [facility]09-09-2022 Miscellaneous Notes* Telephone Encounter - Viviana Hummel RN - 07/04/2022 8:39 AM EDT Last Office Visit: 05/05/2022 Future Office Visit: 07/08/2022 Last Medication Refill: Lantus 09/05/2021 5 Pen 5 refill Date of Last Labs: 05/05/2022 documented in this encounterAultman [facility]08-22-2022 Miscellaneous Notes* Telephone Encounter - Charles Mace PA-C - 06/16/2022 7:28 PM EDT I would recommend review in office . Thanks, Drew Mace PA-C documented in this encounterAultman [facility]08-19-2022 Miscellaneous Notes* Telephone Encounter - Rissa Birch LPN - 06/13/2022 11:04 AM EDT Patient has been identified by name and date of : Yes Requested Prescriptions Pending Prescriptions Disp Refills levothyroxine (SYNTHROID) 50 mcg tablet 30 tablet 5 Sig: Take 1 tablet by mouth once daily. Take on empty stomach. For Thyroid. RX INSTRUCTIONS: Pharmacy initiated this request. No need to notify patient. SHEILA 05/05/22 Scheduled follow up Jonathan Component Latest Ref Rng & Units 10/05/2021 TSH 0.270 - 4.200 uU/mL 1.740 Rissa Birch LPN documented in this encounterAultman [facility]07-11-2022 History of Present illness Narrative* Norman Kinney, PT - 05/05/2022 2:11 PM EDT Episode Visit Count: 2 Therapist That Will Oversee The Plan Of Care: Norman Kinney Start of Care Date: 04/01/22 Onset Date: 03/01/22 Plan of Care Certification Date: 05/05/22 Next Certification Due Date: 06/09/22 Patient Identified by Name and Date of : Yes [facility] PHYSICAL THERAPY PROGRESS REPORT PLAN OF CARE UPDATE: Assessment: Arcenio Rand demonstrates difficulty with active L shoulder ROM, decreased strengthand pain and improvements in tolerance towards the HEP and level of independence with the HEP. She hasprogressed toward goals. Patient continues to present with impairments in ADL's, independence in exercise, range of motion and strength that interfere with sleeping;cleaning . Current prognosis is Good due to: current objective clinical presentation . She will benefit from continued skilled therapy services to meet the updated goals for this plan of care as noted below. Goals updated 05/05/2022 Goals for Episode of Care: created on 04/01/22 through 05/27/22 Pt will report overall improvement in symptoms by 60% or better for the neck in 8 weeks or less - Met Pt will report overall improvement in symptoms by 60% or better for the shoulder in 8 weeks or less - Not met, will continue Pt will report overall improvement in symptoms by 60% or better for the back in 8 weeks or less - Not assessed, will continue Pt will demo L shoulder flexion to 160 deg or better without increased Pain - MET after STM performed this session [place] in home exercise program. - Met so far Patient Goals: Decrease pain Planned Interventions, Frequency, and Duration: 1x/month, One month Total Number of Visits Planned: 1 Patient to be seen for Therapeutic exercise (38145);Neuromuscular re-education (38193);Manual therapy (29811);Therapeutic activities (36379);Self-senior living management (22845);Patient/Family/CaregiverEducation PLAN FOR NEXT VISIT: Re-assess. STM over L trap as needed SUBJECTIVE: Patient Reason for Visit: Pt states she is doing the exercises about 3 days out of the week. Functional Limitations: sleeping;cleaning Pain: Pain Pain Level: 5 Pain Location: Shoulder - Left Description: Sharp PROMIS Scales T-scores: mean of general population = 50. 5 points is clinically meaningfully difference Percentiles provide an indication of how the patient's score ranks in relation to the general population. Higher percentile rankings indicate better function/quality of life. 50th percentile is the average of the general population and indicates half of respondents had a worse score. T-scores: mean of general population = 50. 5 points is clinically meaningfully difference Percentiles provide an indication of how the patient's score ranks in relation to the general population. Higher percentile rankings indicate better function/quality of life. 50th percentile is the average of the general population and indicates half of respondents had a worse score. OBJECTIVE MEASURES WITH LEVEL OF FUNCTION: Spine Observations L Cervical Spine Palpation Tenderness: Upper trapezius;Levator scapulae Lumbar Spine AROM Lumbar Flexion: Normal Cervical Spine ROM Cervical ROM : Limitation AROM Cervical Flexion AROM: Normal Cervical Extension AROM: Normal Cervical Side-Bend Right AROM: Normal Cervical Side-Bend Left AROM: Normal Cervical Rotation Right AROM: Normal Cervical Rotation Left AROM: Normal UE AROM L Shoulder Flex: 100 Degrees (Painful here) UE PROM L Shoulder Flex: 170 Degrees (AAROM and passively) TREATMENT: Therapeutic Exercise: 1: Cane flexion x 10 reps in supine 2: Shoulder abd iso x 10 3: Shoulder ER iso x 10 4: All objective measures taken this session Skilled Intervention: Patient was educated in proper exercise technique and purpose for exercises. Provided written instruction for home exercise program to facilitate proper performance and compliance. Correct performance of therapeutic exercises was facilitated with verbal and visual cuing. Manual Therapy: 1: Discussed self massage using ball vs wall technique. Explained proper intensity, duration, and frequency 2: Self massage performed over the L trap and levator scapulae Skilled Intervention: Manual skills to improve joint mobility, ROM, and decrease pain. Utilized anatomy knowledge of the therapist, and assessment of patient's response to intervention. Billing Therapeutic Exercise Treatment Minutes: 27 Manual TherapyTreatment Minutes: 12 Total Treatment Time Minutes (timed/untimed): 39 Norman Kinney PT documented in this encounterAultman [facility]07-11-2022 History of Present illness Narrative* Ranjeet Goodwin MD - 05/05/2022 9:47 AM EDT Patient presents with: F/U 6 months HPI: Patient presents today for office visit for follow up. Her mother . Seeing [facility]. Emotionally is stable. Sugars have been good. No polyuria or polydipsia. bp is stable. No chest pain or dyspnea. No dizziness. No issue with lipitor. Still taking oral b12. Using cpap. Sees Dr. Shields. Still using her synthroid. Energy level is good. Was scratched by her mother's dog. May be reacting to the bandaid. Is slow to healing. Some redness. See previous ov: Sugar was up a little more recently. a1c was good. No chest pain or shortness of breath. Just saw Dr. Shields. Her energy levels are doing well. Her arthritis is an issues. Emotionally is doing ok. Has had some issues with recent holidays. meds are doing well. See my chart message. She does her her doll with her but does not seem to be acting unusually with it here. Denies any neuro issues. No headache. Her new account interviewer with her does not feel it is a significant issue. Will follow. Component Latest Ref Rng & Units 10/05/2021 WBC 3.70 - 11.00 k/uL 6.52 RBC 3.90 - 5.20 m/uL 4.89 Hemoglobin 11.5 - 15.5 g/dL 13.6 Hematocrit 36.0 - 46.0 % 43.6 MCV 80.0 - 100.0 fL 89.2 MCH 26.0 - 34.0 pG 27.8 MCHC 30.5 - 36.0 g/dL 31.2 RDW-CV 11.5 - 15.0 % 13.8 Platelet Count 150 - 400 k/uL 277 MPV 9.0 - 12.7 fL 10.7 Neut% % 57.0 Abs Neut (ANC) 1.45 - 7.50 k/uL 3.70 Lymph% % 27.5 Abs Lymph 1.00 - 4.00 k/uL 1.79 Tyrrell% % 12.3 Abs Tyrrell <0.87 k/uL 0.80 Eosin% % 2.6 Abs Eosin <0.46 k/uL 0.17 Baso% % 0.6 Abs Baso <0.11 k/uL 0.04 Nucleated Reds 0 /100 WBC 0.0 Absolute nRBC <0.01 k/uL <0.01 Diff Type Auto Diff Protein, Total 6.3 - 8.0 g/dL 6.8 Albumin 3.9 - 4.9 g/dL 4.0 Calcium 8.5 - 10.2 mg/dL 9.4 Bilirubin, Total 0.2 - 1.3 mg/dL 0.3 Alkaline Phosphatase 34 - 123 U/L 54 AST 13 - 35 U/L 22 Glucose 74 - 99 mg/dL 64 (L) BUN 7 - 21 mg/dL 21 Creatinine 0.58 - 0.96 mg/dL 0.88 Sodium 136 - 144 mmol/L 140 Potassium 3.7 - 5.1 mmol/L 4.6 Chloride 97 - 105 mmol/L 102 CO2 22 - 30 mmol/L 26 Anion Gap 9 - 18 mmol/L 12 ALT 7 - 38 U/L 17 eGFR- >60 eGFR-All Other Races . >60 Cholesterol, Total <200 mg/dL 152 Triglyceride <150 mg/dL 164 (H) HDL Cholesterol >39 mg/dL 45 LDL Cholesterol <100 mg/dL 74 Non HDL Cholesterol <130 mg/dL 107 Fasting Time hrs 12 VLDL Cholesterol <30 mg/dL 33 (H) TC:HDL Ratio <5.10 3.38 LDL:HDL Ratio <2.54 1.64 Hemoglobin A1C 4.3 - 5.6 % 6.1 (H) Estimated Average Glucose mg/dL 128 TSH 0.270 - 4.200 uU/mL 1.740 Vitamin B12 232 - 1,245 pg/mL 1,241 MEDICATIONS: Current Outpatient Medications Medication Sig lisinopril (PRINIVIL) 20 mg tablet Take 1 tablet by mouth once daily. meloxicam (MOBIC) 15 mg tablet Take 1 tablet by mouth once daily. With food. sertraline (ZOLOFT) 50 mg tablet Take 1 tablet by mouth once daily. estradiol (ESTRACE) 1 mg tablet Take 1 tablet by mouth once daily. atenolol (TENORMIN) 100 mg tablet Take 1 tablet by mouth once daily. atorvastatin (LIPITOR) 20 mg tablet Take 1 tablet by mouth daily at bedtime. For cholesterol. DULoxetine (CYMBALTA) 60 mg capsule Take 1 capsule by mouth once daily. empagliflozin (JARDIANCE) 25 mg tablet Take 1 tablet by mouth once daily. metFORMIN ER (GLUCOPHAGE XR) 500 mg 24 hr tablet Take 2 tablet by mouth twice daily with food. pioglitazone (ACTOS) 15 mg tablet Take 1 tablet by mouth once daily. SITagliptin (JANUVIA) 100 mg tablet Take 1 tablet by mouth once daily. Insulin [place], Disposable, (BD ULTRA-FINE ROSALIE PEN NEEDLE) 32 gauge x Use to inject insulinonce daily as directed levothyroxine (SYNTHROID) 50 mcg tablet Take 1 tablet by mouth once daily. Take on empty stomach. For Thyroid. aspirin, enteric coated (ASPIRIN, ENTERIC COATED) 81 mg EC tablet Take 1 tablet by mouth once daily. (self-started) multivitamin-ferrous fumarate-folic acid (CENTRUM) Take 1 tablet by mouth once daily. cyanocobalamin (VITAMIN B-12) 1,000 mcg tab Take 1 tablet by mouth once daily. insulin glargine (LANTUS SOLOSTAR, BASAGLAR KWIKPEN) 100 unit/mL (3 mL) Inject 30 Units subcutaneously every morning. CPAP Pt device on recall list. Given findings on eval, would like pt to be changed to an AutoPAP device with humidity set at 10-16 cmH2O. Please provide download in 4 weeks. Also with mask leaks and please try to fit with dreamwear under nose FFM. omeprazole (PRILOSEC) 20 mg capsule Take 2 capsules by mouth once daily. hydrOXYzine HCl (ATARAX) 25 mg tablet Take 1 tablet by mouth every 6 hours as needed for anxiety. blood sugar diagnostic (BLOOD GLUCOSE TEST) test strip Test blood sugar(s) 2 times daily. Dx: Type 2 DM - Uncontrolled E11.65 Insulin: Yes Lancets lancets One Touch Test blood sugar(s) 2 times daily. Dx: Type 2 DM - Controlled E11.9 Insulin: Yes Cholecalciferol, Vitamin D3, (VITAMIN D-3) 50 mcg (2,000 unit) cap Take 1 capsule by mouth once daily. (Patient not taking: Reported on 03/25/2022 ) MULTIVITAMIN ORAL Take 1 tablet by mouth once daily. COMPOUNDED PRESCRIPTION Diabetic shoes No current facility-administered medications for this visit. ALLERGIES: ALLERGIES Allergen Reactions Amoxicillin Other: See Comments Bleach (Sodium Hypo* Hives Penicillins Other: See Comments Sulfa (Sulfonamide * Rash & dry heaves. PAST MEDICAL HISTORY Diagnosis Date Arthralgia Chronic back pain Depression Developmental delay Diabetic neuropathy (HCC) feet DM (diabetes mellitus) (HCC) Hypertension Hypothyroid Mental disorder Snoring PAST SURGICAL HISTORY Procedure Laterality Date COLONOSCOPY FLX DX W/COLLJ SPEC WHEN PFRMD 09/23/2018 Colonoscopy HYSTERECTOMY N/A XCAPSL CTRC RMVL INSJ IO LENS PROSTH CPLX WO ECP FAMILY HISTORY Problem Relation Age of Onset Arthritis Mother Diabetes Mother Hypertension Mother Hyperlipidemia Mother Social History Tobacco Use Smoking status: Never Smoker Smokeless tobacco: Never Used Vaping Use Vaping Use: Never used Substance Use Topics Alcohol use: No Drug use: No Reviewed current medications, allergies, past medical history, surgical history, family history andsocial history today. REVIEW OF SYSTEMS GI: Negative for change in bowel habit : Negative All other reviewed and negative other than HPI. HEALTH MAINTENANCE: Reviewed health maintenance issues today and recommended the following in detail. SHINGRIX VACCINE(1 of 2) Never done PNEUMOCOCCAL(2 - PCV) due on 09/19/2021 URINE ALBUMIN:CREATININE RATIO due on 03/15/2022 HBA1C due on 04/05/2022 DILATED RETINAL EXAM-has appt coming up. VITALS: BP 118/84 Pulse 65 Temp 36.3 C (97.4 F) (Left Tympanic) Resp 16 Wt 91.5 kg (201 lb 12.8 oz) SpO2 99% BMI 39.41 kg/m Last 4 Encounter Wt Readings: Date: Wt: 03/25/2022 91.5 kg (201 lb 12.8 oz) 01/20/2022 89.8 kg (198 lb) 10/21/2021 90.3 kg (199 lb) 08/12/2021 90.3 kg (199 lb) PHYSICAL EXAMINATION: General appearance: Well appearing, alert, in no acute distress, well-hydrated, well nourished. Skin: bandaid shaped area on forearm surrounding. Two open areas. Will have her change bandaids. Head: Normocephalic, no masses, lesions, tenderness or abnormalities Ears: External ears normal, canals clear Lungs: Lungs clear to auscultation. No wheezing, rhonchi, rales Heart: RRR without murmur, gallop, or rubs. No ectopy Abdomen: Normal abdominal exam, Abdomen soft, non-tender. Bowel sounds normal. No masses, organomegaly Extremities: No deformities, edema, skin discoloration, clubbing or cyanosis. Good capillary refill. ASSESSMENT/PLAN: 1. Abrasion - ICD9: 919.0, ICD10: T14.8XXA (primary diagnosis) - change antibiotic. Red flags for re-assessment reviewed with patient in detail. - MUPIROCIN CALCIUM 2 % TOPICAL CREAM 2. Uncontrolled type 2 diabetes mellitus with hypoglycemia, unspecified hypoglycemia coma status (HCC) - ICD9: 250.82, ICD10: E11.649 - recheck labs. - PEN NEEDLE, DIABETIC 32 GAUGE X 5/32 - LANCETS - BLOOD GLUCOSE TEST STRIPS - HGB A1C - ALBUMIN/CREAT RATIO RND UR 3. Type 2 diabetes mellitus with diabetic neuropathy, unspecified whether halfway insulin use (HCC) - ICD9: 250.60, 357.2, ICD10: E11.40 4. Essential hypertension, benign - ICD9: 401.1, ICD10: I10 - good control - Continue current medication(s) - Goal of BP <130/80 5. Mixed hyperlipidemia - ICD9: 272.2, ICD10: E78.2 - good control - Continue current medication. 6. Severe sleep apnea - ICD9: 780.57, ICD10: G47.30 - stable. 7. Vitamin B 12 deficiency - ICD9: 266.2, ICD10: E53.8 - stable. 8. Acquired hypothyroidism - ICD9: 244.9, ICD10: E03.9 Continue current medications. Notify us if any difficulties are noted. 9. Depression, unspecified depression type - ICD9: 311, ICD10: F32.A - call if any isssues. Ranjeet Goodwin RTO in six months and prn. [facility] Miscellaneous Notes* Telephone Encounter - Evy Christina RN - 04/18/2022 4:23 PM EDT Patient has been identified by name and date of : Yes Pharmacy phones for refill(s): Pending Prescriptions Disp Refills LISINOPRIL 20 MG TABLET 30 tablet 5 Sig: Take 1 tablet by mouth once daily. ISMA: No Date of last office visit with pcp: 03/25/2022 Future appt: 05/05/2022 Last 2 Encounter Wt Readings: Date: Wt: 03/25/2022 91.5 kg (201 lb 12.8 oz) 01/20/2022 89.8 kg (198 lb) Previous labs/tests for medication: Blood Pressure: BUN (mg/dL) Date Value 10/05/2021 21 Sodium (mmol/L) Date Value 10/05/2021 140 Last 1 Encounter BP Readings: Date: BP: 03/25/2022 138/82 Liver Function: ALT (U/L) Date Value 10/05/2021 17 AST (U/L) Date Value 10/05/2021 22 Please advise. Thank you. Evy Christina RN documented in this encounterA[facility] History of Past illness Narrative* Problem Noted Date Resolved Date Neck pain 04/01/2022 11/10/2022 Chronic bilateral low back pain without sciatica 04/01/2022 11/10/2022 Chest pain 06/18/2020 03/20/2021 Pulmonary hypertension 02/24/2019 Overview: Echo at that time was negative. Arthralgia 07/15/2018 11/10/2022 Type II diabetes mellitus, uncontrolled 07/15/20 18 11/27/2021 documented as of this encounter (statuses as of 11/10/2022) [facility] of Past illness Narrative* Problem Noted Date Resolved Date Neck pain 04/01/2022 11/10/2022 Chronic bilateral low back pain without sciatica 04/01/2022 11/10/2022 Chest pain 06/18/2020 03/20/2021 Pulmonary hypertension 02/24/2019 Overview: Echo at that time was negative. Arthralgia 07/15/2018 11/10/2022 Type II diabetes mellitus, uncontrolled 07/15/20 18 11/27/2021 documented as of this encounter (statuses as of 11/25/2022) [facility] of Past illness Narrative* Problem Noted Date Resolved Date Neck pain 04/01/2022 11/10/2022 Chronic bilateral low back pain without sciatica 04/01/2022 11/10/2022 Chest pain 06/18/2020 03/20/2021 Pulmonary hypertension 02/24/2019 Overview: Echo at that time was negative. Arthralgia 07/15/2018 11/10/2022 Type II diabetes mellitus, uncontrolled 07/15/20 18 11/27/2021 documented as of this encounter (statuses as of 11/28/2022) [facility] of Past illness Narrative* Problem Noted Date Resolved Date Neck pain 04/01/2022 11/10/2022 Chronic bilateral low back pain without sciatica 04/01/2022 11/10/2022 Chest pain 06/18/2020 03/20/2021 Pulmonary hypertension 02/24/2019 Overview: Echo at that time was negative. Arthralgia 07/15/2018 11/10/2022 Type II diabetes mellitus, uncontrolled 07/15/20 18 11/27/2021 documented as of this encounter (statuses as of 12/15/2022) [facility] illness Narrative* Problem Noted Date Resolved Date Neck pain 04/01/2022 11/10/2022 Chronic bilateral low back pain without sciatica 04/01/2022 11/10/2022 Chest pain 06/18/2020 03/20/2021 Pulmonary hypertension 02/24/2019 Overview: Echo at that time was negative. Arthralgia 07/15/2018 11/10/2022 Type II diabetes mellitus, uncontrolled 07/15/20 18 11/27/2021 documented as of this encounter (statuses as of 12/19/2022) [facility] illness Narrative* Problem Noted Date Resolved Date Neck pain 04/01/2022 11/10/2022 Chronic bilateral low back pain without sciatica 04/01/2022 11/10/2022 Chest pain 06/18/2020 03/20/2021 Pulmonary hypertension 02/24/2019 Overview: Echo at that time was negative. Arthralgia 07/15/2018 11/10/2022 Type II diabetes mellitus, uncontrolled 07/15/20 18 11/27/2021 documented as of this encounter (statuses as of 01/08/2023) [facility] illness Narrative* Problem Noted Date Resolved Date Neck pain 04/01/2022 11/10/2022 Chronic bilateral low back pain without sciatica 04/01/2022 11/10/2022 Chest pain 06/18/2020 03/20/2021 Pulmonary hypertension 02/24/2019 Overview: Echo at that time was negative. Arthralgia 07/15/2018 11/10/2022 Type II diabetes mellitus, uncontrolled 07/15/20 18 11/27/2021 documented as of this encounter (statuses as of 01/29/2023) [facility] illness Narrative* Problem Noted Date Resolved Date Neck pain 04/01/2022 11/10/2022 Chronic bilateral low back pain without sciatica 04/01/2022 11/10/2022 Chest pain 06/18/2020 03/20/2021 Pulmonary hypertension 02/24/2019 Overview: Echo at that time was negative. Arthralgia 07/15/2018 11/10/2022 Type II diabetes mellitus, uncontrolled 07/15/20 18 11/27/2021 documented as of this encounter (statuses as of 02/20/2023) [facility] Narrative* Problem Noted Date Resolved Date Neck pain 04/01/2022 11/10/2022 Chronic bilateral low back pain without sciatica 04/01/2022 11/10/2022 Chest pain 06/18/2020 03/20/2021 Pulmonary hypertension 02/24/2019 Overview: Echo at that time was negative. Arthralgia 07/15/2018 11/10/2022 Type II diabetes mellitus, uncontrolled 07/15/20 18 11/27/2021 documented as of this encounter (statuses as of 03/09/2023) [facility] Narrative* Problem Noted Date Resolved Date Neck pain 04/01/2022 11/10/2022 Chronic bilateral low back pain without sciatica 04/01/2022 11/10/2022 Chest pain 06/18/2020 03/20/2021 Pulmonary hypertension 02/24/2019 Overview: Echo at that time was negative. Arthralgia 07/15/2018 11/10/2022 Type II diabetes mellitus, uncontrolled 07/15/20 18 11/27/2021 documented as of this encounter (statuses as of 04/17/2023) [facility] Narrative* Problem Noted Date Resolved Date Neck pain 04/01/2022 11/10/2022 Chronic bilateral low back pain without sciatica 04/01/2022 11/10/2022 Chest pain 06/18/2020 03/20/2021 Pulmonary hypertension 02/24/2019 Overview: Echo at that time was negative. Arthralgia 07/15/2018 11/10/2022 Type II diabetes mellitus, uncontrolled 07/15/20 18 11/27/2021 documented as of this encounter (statuses as of 04/18/2023) [facility] Narrative* Problem Noted Date Resolved Date Neck pain 04/01/2022 11/10/2022 Chronic bilateral low back pain without sciatica 04/01/2022 11/10/2022 Chest pain 06/18/2020 03/20/2021 Pulmonary hypertension 02/24/2019 Overview: Echo at that time was negative. Arthralgia 07/15/2018 11/10/2022 Type II diabetes mellitus, uncontrolled 07/15/20 18 11/27/2021 documented as of this encounter (statuses as of 04/21/2023) [facility] Narrative* Problem Noted Date Diagnosed Date Resolved Date Neck pain 04/01/2022 11/10/2022 Chronic bilateral low back p ain without sciatica 04/01/2022 11/10/2022 Chest pain 06/18/2020 03/20/2021 Pulmonary hypertension 02/24/201903/20 Overview: Echo at that time was negative. Arthralgia 07/15/2018 11/10/2022 Type II diabetes mellitus, uncontrolled 07/15/2018 11/27/2021 documented as of this encounter (statuses as of 05/11/2023) [facility] Narrative* Problem Noted Date Diagnosed Date Resolved Date Neck pain 04/01/2022 11/10/2022 Chronic bilateral low back p ain without sciatica 04/01/2022 11/10/2022 Chest pain 06/18/2020 03/20/2021 Pulmonary hypertension 02/24/201903/20 Overview: Echo at that time was negative. Arthralgia 07/15/2018 11/10/2022 Type II diabetes mellitus, uncontrolled 07/15/2018 11/27/2021 documented as of this encounter (statuses as of 05/12/2023) [place] [id number] History of Past illness Narrative* Problem Noted Date Diagnosed Date Resolved Date Neck pain 04/01/2022 11/10/2022 Chronic bilateral low back p ain without sciatica 04/01/2022 11/10/2022 Chest pain 06/18/2020 03/20/2021 Pulmonary hypertension 02/24/201903/20 Overview: Echo at that time was negative. Arthralgia 07/15/2018 11/10/2022 Type II diabetes mellitus, uncontrolled 07/15/2018 11/27/2021 documented as of this encounter (statuses as of 06/16/2023) [facility] Narrative* Problem Noted Date Diagnosed Date Resolved Date Neck pain 04/01/2022 11/10/2022 Chronic bilateral low back p ain without sciatica 04/01/2022 11/10/2022 Chest pain 06/18/2020 03/20/2021 Pulmonary hypertension 02/24/201903/20 Overview: Echo at that time was negative. Arthralgia 07/15/2018 11/10/2022 Type II diabetes mellitus, uncontrolled 07/15/2018 11/27/2021 documented as of this encounter (statuses as of 06/19/2023) [facility] Narrative* Problem Noted Date Diagnosed Date Resolved Date Neck pain 04/01/2022 11/10/2022 Chronic bilateral low back p ain without sciatica 04/01/2022 11/10/2022 Chest pain 06/18/2020 03/20/2021 Pulmonary hypertension 02/24/201903/20 Overview: Echo at that time was negative. Arthralgia 07/15/2018 11/10/2022 Type II diabetes mellitus, uncontrolled 07/15/2018 11/27/2021 documented as of this encounter (statuses as of 07/10/2023) [facility] Narrative* Problem Noted Date Diagnosed Date Resolved Date Neck pain 04/01/2022 11/10/2022 Chronic bilateral low back p ain without sciatica 04/01/2022 11/10/2022 Chest pain 06/18/2020 03/20/2021 Pulmonary hypertension 02/24/201903/20 Overview: Echo at that time was negative. Arthralgia 07/15/2018 11/10/2022 Type II diabetes mellitus, uncontrolled 07/15/2018 11/27/2021 documented as of this encounter (statuses as of 08/30/2023) [facility] Narrative* Problem Noted Date Diagnosed Date Resolved Date Neck pain 04/01/2022 11/10/2022 Chronic bilateral low back p ain without sciatica 04/01/2022 11/10/2022 Chest pain 06/18/2020 03/20/2021 Pulmonary hypertension 02/24/201903/20 Overview: Echo at that time was negative. Arthralgia 07/15/2018 11/10/2022 Type II diabetes mellitus, uncontrolled 07/15/2018 11/27/2021 documented as of this encounter (statuses as of 09/09/2023) [facility] Narrative* Problem Noted Date Diagnosed Date Resolved Date Neck pain 04/01/2022 11/10/2022 Chronic bilateral low back p ain without sciatica 04/01/2022 11/10/2022 Chest pain 06/18/2020 03/20/2021 Pulmonary hypertension 02/24/201903/20 Overview: Echo at that time was negative. Arthralgia 07/15/2018 11/10/2022 Type II diabetes mellitus, uncontrolled 07/15/2018 11/27/2021 documented as of this encounter (statuses as of 12/07/2023) [facility] Narrative* Problem Noted Date Diagnosed Date Resolved Date Neck pain 04/01/2022 11/10/2022 Chronic bilateral low back p ain without sciatica 04/01/2022 11/10/2022 Chest pain 06/18/2020 03/20/2021 Pulmonary hypertension 02/24/201903/20 Overview: Echo at that time was negative. Arthralgia 07/15/2018 11/10/2022 Type II diabetes mellitus, uncontrolled 07/15/2018 11/27/2021 documented as of this encounter (statuses as of 12/24/2023) [facility] illness Narrative* Problem Noted Date Diagnosed Date Resolved Date Neck pain 04/01/2022 11/10/2022 Chronic bilateral low back p ain without sciatica 04/01/2022 11/10/2022 Chest pain 06/18/2020 03/20/2021 Pulmonary hypertension 02/24/201903/20 Overview: Echo at that time was negative. Arthralgia 07/15/2018 11/10/2022 Type II diabetes mellitus, uncontrolled 07/15/2018 11/27/2021 documented as of this encounter (statuses as of 01/12/2024) [facility] Narrative* Problem Noted Date Diagnosed Date Resolved Date Neck pain 04/01/2022 11/10/2022 Chronic bilateral low back p ain without sciatica 04/01/2022 11/10/2022 Chest pain 06/18/2020 03/20/2021 Pulmonary hypertension 02/24/201903/20 Overview: Echo at that time was negative. Arthralgia 07/15/2018 11/10/2022 Type II diabetes mellitus, uncontrolled 07/15/2018 11/27/2021 documented as of this encounter (statuses as of 01/14/2024) [facility] of [facility] illness Narrative* Problem Noted Date Diagnosed Date Resolved Date Neck pain 04/01/2022 11/10/2022 Chronic bilateral low back p ain without sciatica 04/01/2022 11/10/2022 Chest pain 06/18/2020 03/20/2021 Pulmonary hypertension 02/24/201903/20 Overview: Echo at that time was negative. Arthralgia 07/15/2018 11/10/2022 Type II diabetes mellitus, uncontrolled 07/15/2018 11/27/2021 documented as of this encounter (statuses as of 01/15/2024) [facility] Narrative* Problem Noted Date Diagnosed Date Resolved Date Neck pain 04/01/2022 11/10/2022 Chronic bilateral low back p ain without sciatica 04/01/2022 11/10/2022 Chest pain 06/18/2020 03/20/2021 Pulmonary hypertension 02/24/201903/20 Overview: Echo at that time was negative. Arthralgia 07/15/2018 11/10/2022 Type II diabetes mellitus, uncontrolled 07/15/2018 11/27/2021 documented as of this encounter (statuses as of 01/29/2024) [facility] illness Narrative* Problem Noted Date Diagnosed Date Resolved Date Neck pain 04/01/2022 11/10/2022 Chronic bilateral low back p ain without sciatica 04/01/2022 11/10/2022 Chest pain 06/18/2020 03/20/2021 Pulmonary hypertension 02/24/201903/20 Overview: Echo at that time was negative. Arthralgia 07/15/2018 11/10/2022 Type II diabetes mellitus, uncontrolled 07/15/2018 11/27/2021 documented as of this encounter (statuses as of 02/10/2024) [facility] of Present illness Narrative* Norman Kinney PT - 04/01/2022 10:13 AM EDT Episode Visit Count: 1 Therapist That Will Oversee The Plan Of Care: Norman Kinney Start of Care Date: 04/01/22 Onset Date: 03/01/22 Plan of Care Certification Date: 04/01/22 Next Certification Due Date: 05/06/22 Patient Identified by Name and Date of : Yes RE[facility]ABIL[facility] SPORTS THERAPY PHYSICAL THERAPY EVALUATION PLAN OF CARE: Assessment: Arcenio Rand presents with chief complaint of Neck, L shoulder, and back pain that interferes with sleeping;cleaning . She presents with impairments in ADL's, posture, range of motionand strength. Prognosis for therapy is Good due to: current objective clinical presentation . Pt has pain with AROM of the C-spine and L shoulder that presents like joint pain. She will benefit from skilled therapy services to meet the goals established for this plan of care as noted below. Goals for Episode of Care: created on 04/01/22 through 05/27/22 Pt will report overall improvement in symptoms by 60% or better for the neck in 8 weeks or less Pt will report overall improvement in symptoms by 60% or better for the shoulder in 8 weeks or less Pt will report overall improvement in symptoms by 60% or better for the back in 8 weeks or less Pt will demo L shoulder flexion to 160 deg or better without increased pain [place] in home exercise program. Patient Goals: Decrease pain Planned Interventions, Frequency, and Duration: Current Frequency: 1x every other week Duration: 4 weeks Total Number of Visits Planned: 2 Planned Treatment Interventions: Therapeutic exercise (39733);Neuromuscular re- education (01327);Manual therapy (25763);Therapeutic activities (78897);Self- senior living management (95673);Patient/Family/Caregiver Education PLAN FOR NEXT VISIT: Assess LB and LE strength further Patient demonstrates good understanding of plan of care and treatment. The above goals and plan of care were discussed and agreed upon by patient/family. SUBJECTIVE: Arcenio Rand is a 57 year old female seen today for Neck and L shoulder pain. Some LBP. Fell 1 year ago but no recent injury. Patient Goals: Decrease pain Functional Limitations: sleeping;cleaning Prior Level of Function: Independent without limitations Intake Information: Prescription present Previous Treatment: Physical Therapy Red Flags Vertebral Fracture Clinical Reasoning: No identified risk factors Abdominal Aortic Aneurysm Clinical Reasoning: No identified risk factors. Cancer Clinical Reasoning: No identified risk factors. Infection Clinical Reasoning: No identified risk factors. Cauda Equina Syndrome Clinical Reasoning: No identified risk factors. Cervical Arterial Dysfunction Clinical Reasoning: No identified risk factors Cervical Myelopathy Diagnostic Rule: No identified risk factors. Red Flags - Cervical Cancer Clinical Reasoning: No identified risk factors. Infection Clinical Reasoning: No identified risk factors. Cervical Arterial Dysfunction Clinical Reasoning: No identified risk factors Cervical Myelopathy Diagnostic Rule: No identified risk factors. Pain: Pain Pain Location: Shoulder - Left Description: Aching;Sharp Additional Pain Information : Location 2 Pain Level 2: 6 Pain Location 2: Neck Post Treatment Pain Post Treatment Pain Level: No Change PROMIS Scales T-scores: mean of general population = 50. 5 points is clinically meaningfully difference Percentiles provide an indication of how the patient's score ranks in relation to the general population. Higher percentile rankings indicate better function/quality of life. 50th percentile is the average of the general population and indicates half of respondents had a worse score. T-scores: mean of general population = 50. 5 points is clinically meaningfully difference Percentiles provide an indication of how the patient's score ranks in relation to the general population. Higher percentile rankings indicate better function/quality of life. 50th percentile is the average of the general population and indicates half of respondents had a worse score. OBJECTIVE MEASURES WITH LEVEL OF FUNCTION: Lumbar Spine AROM Lumbar Flexion: Normal Cervical Spine ROM Cervical ROM : Limitation AROM Cervical Flexion AROM: Normal Cervical Extension AROM: Moderate limitation;Increased pain Cervical Side-Bend Right AROM: Minimal limitation;Increased pain Cervical Side-Bend Left AROM: Normal Cervical Rotation Right AROM: Normal Cervical Rotation Left AROM: Normal UE AROM R UE AROM: WNL L Shoulder Flex: (able to reach 165 deg but painful around 100 deg) UE and Cervical Strength Strength Tested: Shoulder All R UE Strength: Grossly 4+/5 L UE Strength: Grossly 4+/5 Education: Education Learning Preferences: Demonstration;Explanation;Performance;Printed Materials Barriers: None Learning/educational needs: Home exercise program;Plan of Care Education Provided: Yes, see treatment interventions for education provided Education Provided To: Patient Education Mode/Type: Demonstration;Explanation/Discussion;Literature/Printed Materials;Performance Response to Education/Teach Back: States/Identifies;Return Demonstration TREATMENT: PT Treatment Interventions: Therapeutic Exercise Evaluation Therapeutic Exercise: 1: Discussed therapy goals and exam findings. 2: Supine cane flexion x5 3: Sub-O stretch 2 x 30 sec Skilled Intervention: Patient was educated in proper exercise technique and purpose for exercises. Skilled judgment was provided in selection of appropriate interventions. Provided written instruction for home exercise program to facilitate proper performance and compliance. Correct performance of therapeutic exercises was facilitated with verbal cuing. Billing * Evaluation Low Complexity: 1 Unit Therapeutic Exercise Treatment Minutes: 24 Total Treatment Time Minutes (timed/untimed): 45 Norman Kinney PT documented in this encounterAult[facility]05-31-[facility]22 Instructions* Patient Instructions* Odalys Brock APRN.CNP - 03/25/2022 10:08 AM EDT 1. Start the meloxicam. 2. Moist heat/ice to the shoulder. 3. Continue the topical medications. 4. Massage to the area. 5. Schedule w/ physical therapy. 6. Let us know if no better/worsening. documented in this encounterAultman [facility]05-31-2022 History of Present illness Narrative* Odalys Brock APRN.CNP - 03/25/2022 9:52 AM EDT This is a 57 year old female who presents today with: Patient presents with: Back Pain: left shoulder HISTORY OF PRESENT ILLNESS: Arcenio Rand is a 57 year old female. Patient presents with: Back Pain: left shoulder Pt presents today with complaint of shoulder pain. Left posterior shoulder. Started about a month ago. Refers she also gets some pain in the middle back. Right-handed. No recent shoulder injuries -- fell one time years ago on it. Refers that she does get some popping cracking. No n/t. Tylenol, as needed. Also using topical medication and massage to the area. Has participated in PT previously, which was helpful. Also some bilateral lower back pain. Chronic in nature. PAST MEDICAL HISTORY: PAST MEDICAL HISTORY Diagnosis Date Arthralgia Chronic back pain Depression Developmental delay Diabetic neuropathy (HCC) feet DM (diabetes mellitus) (HCC) Hypertension Hypothyroid Mental disorder Snoring PAST SURGICAL HISTORY Procedure Laterality Date COLONOSCOPY FLX DX W/COLLJ SPEC WHEN PFRMD 09/23/2018 Colonoscopy HYSTERECTOMY N/A XCAPSL CTRC RMVL INSJ IO LENS PROSTH CPLX WO ECP ALLERGIES Amoxicillin, Bleach (Sodium Hypochlorite), Penicillins, and Sulfa (Sulfonamide Antibiotics) MEDICATIONS Current Outpatient Medications Medication Sig sertraline (ZOLOFT) 50 mg tablet Take 1 tablet by mouth once daily. estradiol (ESTRACE) 1 mg tablet Take 1 tablet by mouth once daily. atenolol (TENORMIN) 100 mg tablet Take 1 tablet by mouth once daily. atorvastatin (LIPITOR) 20 mg tablet Take 1 tablet by mouth daily at bedtime. For cholesterol. DULoxetine (CYMBALTA) 60 mg capsule Take 1 capsule by mouth once daily. empagliflozin (JARDIANCE) 25 mg tablet Take 1 tablet by mouth once daily. metFORMIN ER (GLUCOPHAGE XR) 500 mg 24 hr tablet Take 2 tablet by mouth twice daily with food. pioglitazone (ACTOS) 15 mg tablet Take 1 tablet by mouth once daily. SITagliptin (JANUVIA) 100 mg tablet Take 1 tablet by mouth once daily. levothyroxine (SYNTHROID) 50 mcg tablet Take 1 tablet by mouth once daily. Take on empty stomach. For Thyroid. aspirin, enteric coated (ASPIRIN, ENTERIC COATED) 81 mg EC tablet Take 1 tablet by mouth once daily. (self-started) multivitamin-ferrous fumarate-folic acid (CENTRUM) Take 1 tablet by mouth once daily. cyanocobalamin (VITAMIN B-12) 1,000 mcg tab Take 1 tablet by mouth once daily. lisinopril (PRINIVIL) 20 mg tablet Take 1 tablet by mouth once daily. insulin glargine (LANTUS SOLOSTAR, BASAGLAR KWIKPEN) 100 unit/mL (3 mL) Inject 30 Units subcutaneously every morning. CPAP Pt device on recall list. Given findings on eval, would like pt to be changed to an AutoPAP device with humidity set at 10-16 cmH2O. Please provide download in 4 weeks. Also with mask leaks and please try to fit with dreamwear under nose FFM. omeprazole (PRILOSEC) 20 mg capsule Take 2 capsules by mouth once daily. hydrOXYzine HCl (ATARAX) 25 mg tablet Take 1 tablet by mouth every 6 hours as needed for anxiety. diclofenac, EC, (VOLTAREN) 75 mg EC tablet Take 1 tablet by mouth three times daily as needed. FOR PAIN Insulin [place], Disposable, (BD ULTRA-FINE ROSALIE PEN NEEDLE) 32 gauge x Use to inject insulinonce daily as directed blood sugar diagnostic (BLOOD GLUCOSE TEST) test strip Test blood sugar(s) 2 times daily. Dx: Type 2 DM - Uncontrolled E11.65 Insulin: Yes Lancets lancets One Touch Test blood sugar(s) 2 times daily. Dx: Type 2 DM - Controlled E11.9 Insulin: Yes Cholecalciferol, Vitamin D3, (VITAMIN D-3) 50 mcg (2,000 unit) cap Take 1 capsule by mouth once daily. (Patient not taking: Reported on 03/25/2022 ) MULTIVITAMIN ORAL Take 1 tablet by mouth once daily. COMPOUNDED PRESCRIPTION Diabetic shoes No current facility-administered medications for this visit. FAMILY HISTORY Problem Relation Age of Onset Arthritis Mother Diabetes Mother Hypertension Mother Hyperlipidemia Mother Social History Tobacco Use Smoking status: Never Smoker Smokeless tobacco: Never Used Vaping Use Vaping Use: Never used Substance Use Topics Alcohol use: No Drug use: No EXAM: BP 138/82 Pulse 68 Resp 16 Wt 91.5 kg (201 lb 12.8 oz) SpO2 98% BMI 39.41 kg/m PHYSICAL EXAM: General Appearance: Well appearing, alert, in no acute distress, well-hydrated, well nourished.. Skin: Skin color, texture, turgor normal, no suspicious rashes or lesions. Head: Normocephalic, no masses, lesions, tenderness or abnormalities. Eyes: Anicteric sclera. Extraocular movements are intact. . Lungs: Lungs clear to auscultation. No wheezing, rhonchi, rales.. Heart: RRR without murmur, gallop, or rubs. No ectopy. Neck: limited d/t to pain in the left neck/trap. Back: some tenderness to palpate of the bilateral paralumbar muscles. + tenderness of the left trap. Extremities: No deformities, edema, skin discoloration, clubbing or cyanosis. Good capillary refill. = strength of extremities. Neurologic: Gait normal. Shoulder : Location: left trap area. Redness: no Warmth: no Tenderness to palpation: yes -- trap Swelling: no Range of motion: Full active ROM both shoulders abduction, adduction, flexion, extension, circumduction, internal and external rotation. Empty can test: neg ASSESSMENT/PLAN: 1. Neck pain - ICD9: 723.1, ICD10: M54.2 (primary diagnosis) Start meloxicam. Moist heat/ice. Continue topicals. Massage to the area. Schedule w/ PT. - MELOXICAM 15 MG TABLET - CONSULT TO PHYSICAL THERAPY 2. Chronic bilateral low back pain without sciatica - ICD9: 724.2, 338.29, ICD10: M54.50, G89.29 As above. - MELOXICAM 15 MG TABLET - CONSULT TO PHYSICAL THERAPY Discussed treatment plan and patient voices understanding. Patient's questions answered appropriately. Medications and potential side effects were discussed and patient voices understanding. Return to the office as scheduled or as needed for worsening/no improvement. Odalys Brock APRN.ZIGGY documented in this encounterA[facility]05-09-2022 Miscellaneous Notes* Telephone Encounter - Viviana Hummel RN - 03/03/2022 10:52 AM EDT Patient has been identified by name and date of : Yes Patient phones for refill(s): Pending Prescriptions Disp Refills SERTRALINE 50 MG TABLET 90 tablet 1 Sig: Take 1 tablet by mouth once daily. ISMA: No Date of last office visit in primary care: 10/21/2021; Future Appt. 05/05/2022 Last 2 Encounter Wt Readings: Date: Wt: 01/20/2022 89.8 kg (198 lb) 10/21/2021 90.3 kg (199 lb) Previous labs/tests for medication: Blood Pressure: BUN (mg/dL) Date Value 10/05/2021 21 Sodium (mmol/L) Date Value 10/05/2021 140 Last 1 Encounter BP Readings: Date: BP: 01/20/2022 136/78 Liver Function: ALT (U/L) Date Value 10/05/2021 17 AST (U/L) Date Value 10/05/2021 22 Please advise. Thank you. Viviana Hummel RN documented in this encounterA[facility]05-03-2022 Miscellaneous Notes* Telephone Encounter - Jolene Isa DE LEON - 02/25/2022 9:30 AM EDT Patient has been identified by name and date of : Yes Pharmacy phones for refill(s): Pending Prescriptions Disp Refills ESTRADIOL 1 MG TABLET 90 tablet 1 Sig: Take 1 tablet by mouth once daily. ISMA: No ATENOLOL 100 MG TABLET 90 tablet 1 Sig: Take 1 tablet by mouth once daily. ISMA: No ATORVASTATIN 20 MG TABLET 90 tablet 1 Sig: Take 1 tablet by mouth daily at bedtime. For cholesterol. ISMA: No DULOXETINE 60 MG CAPSULE,DELAYED RELEASE 90 capsule 1 Sig: Take 1 capsule by mouth once daily. ISMA: No EMPAGLIFLOZIN 25 MG TABLET 90 tablet 1 Sig: Take 1 tablet by mouth once daily. ISMA: No METFORMIN ER 500 MG TABLET,EXTENDED RELEASE 24 HR 360 tablet 1 Sig: Take 2 tablet by mouth twice daily with food. ISMA: No PIOGLITAZONE 15 MG TABLET 90 tablet 1 Sig: Take 1 tablet by mouth once daily. ISMA: No SITAGLIPTIN 100 MG TABLET 90 tablet 1 Sig: Take 1 tablet by mouth once daily. ISMA: No Date of last office visit in primary care: 10/21/2021, has appt 05/05/2022 Last 2 Encounter Wt Readings: Date: Wt: 01/20/2022 89.8 kg (198 lb) 10/21/2021 90.3 kg (199 lb) Previous labs/tests for medication: Diabetes: Hemoglobin A1C (%) Date Value 10/05/2021 6.1 03/15/2021 6.7 Cholesterol: Triglycerides (mg/dL) Date Value 08/23/2018 247 HDL Cholesterol (mg/dL) Date Value 10/05/2021 45 LDL Cholesterol (mg/dL) Date Value 10/05/2021 74 ALT (U/L) Date Value 10/05/2021 17 Non HDL Cholesterol (mg/dL) Date Value 10/05/2021 107 Blood Pressure: BUN (mg/dL) Date Value 10/05/2021 21 Sodium (mmol/L) Date Value 10/05/2021 140 Last 1 Encounter BP Readings: Date: BP: 01/20/2022 136/78 Please advise. Thank you. Jolene Moss LPN documented in this encounterA[facility]man [facility]04-26-2022 Miscellaneous Notes* Telephone Encounter - Adelaide Peterson LPN - 02/18/2022 3:52 PM EDT Faxed to [employer] [phone] * Telephone Encounter - Ranjeet Goodwin MD - 02/18/2022 3:29 PM EDT printed * Telephone Encounter - Ranjeet Goodwin MD - 02/18/2022 7:20 AM EDT Will print when in office documented in this encounterA[facility]man [facility]03-28-2022 History of Present illness Narrative* Ranjeet Shields Jr., MD - 01/20/2022 8:58 AM EDT ESTABLISHED PATIENT VISIT CHIEF COMPLAINT: HIMANSHU follow up HISTORY OF PRESENT ILLNESS: Arcenio Rand is a 56 year old female, with a PMH significant for and per last office visit note of 08/12/21: 1. HIMANSHU (obstructive sleep apnea) - ICD9: 327.23, ICD10: G47.33 (primary diagnosis) 2. Class 2 obesity with body mass index (BMI) of 38.0 to 38.9 in adult, unspecified obesity type, unspecified whether serious comorbidity present - ICD9: 278.00, V85.38, ICD10: E66.9, Z68.38 Patient with known history of severe HIMANSHU as above, and dx'd by PSG at [facility]. HIMANSHU risk factors includecrowded airway and obesity with increasing weight since initial study. Doing well with PAP except for 2 things: 1) mask leak; 2) bad dreams. Fitted mask on pt today and there is lack of quality fit in the area of the bridge of the nose where leaks I likely originating. Unfortunately no other masks to fit pt with today. Regarding dreams, question if these are due to poorly controlled REM related HIMANSHU as REM sleep was not recorded during the sleep study. Discussed with patient. She is using a Respironics device and appears to be a device on recall list. She was never advised of recall. D/w pt recall and given her device needs replaced will try to transition to autopap as this would allow for increased pressures possibly through breakthrough increases in AHI during REM sleep. I have also requested a mask fit. I have also advised pt of need to contact [employer] and have advised pt's DME of concern for machine recall. We also discussed means of cleaning device, and I have advised pt to discontinue using an OZONE cleared. As pt had severe HIMANSHU we will continue PAP for now. Discussed with patient: the physiology of OSAS, medical conditions associated with OSAS (DM, HTN, CAD, Depression, Stroke, Headache...) and treatment options (UPPP, Dental appliances, CPAP...). Advised patient to avoid activities that could harm self or others when tired/sleepy, including driving and/or operating heavy machinery. Encouraged weight loss, and continued compliance with other medications. Note that PAP data download arrived as pt was leaving. Showed pt used / nights up to today, with avg use of 7 hours and 54 minutes. Leak appears to be above 25LPM nightly. Overall AHI 4.3 on PAP of 12 cmH2O. Based on these findings will still proceed with plan as above. PAP download again not available for review at today's visit. There does not appear to be any weight gain since last appointment. Sleeping better and through the night. No issues with new mask. Going to bed at 9PM and falls asleep immediately. Not waking during the night unless absolutely needs to void. Wakes to start the day about 6AM. Takes a little while to wake up but not bad. More energy during the day. Note did not completed ESS or questionnaire, but when asked in office, ESS calculates to 08/18. No more headaches since using PAP regularly. Uses PAP nightly. Cleaning PAP daily. Very rare nightmares. No waking choking or gasping for air. Mask is comfortable (appears to have FFM with under the nose) - [employer]wear. [employer] dreamstation 2 now - showed how to adjust humidifier. PAP data download - for past 30 days uses nightly for avg of 9 hour and 8 minutes of use. AHI 1.6. Avg time large leak is 48 seconds. CPAP set at 12 cmH2O. REVIEW OF SYSTEMS GENERAL:No weight loss, malaise or fevers. HEENT:Negative for frequent or significant headaches, No changes in hearing or vision, no nose bleeds or other nasal problems NECK:Negative for lumps, goiter, pain and significant neck swelling RESPIRATORY: Negative for cough, wheezing or shortness of breath. CARDIOVASCULAR: Negative for chest pain, leg swelling or palpitations. GASTROINTESTINAL: Negative for abdominal discomfort, blood in stools or black stools or change in bowel habits GENITOURINARY: No history of dysuria, frequency or incontinence MUSCULOSKELETAL: Negative for joint pain or swelling, back pain or muscle pain. NEUROLOGIC:Negative for focal numbness or weakness, headaches and dizziness or syncope, vision changes, speech/languag changes - EXCEPT that as per HPI above. SKIN:Negative for lesions, rash, and itching. PSYCHIATRIC: Negative for sleep disturbance, mood disorder and recent psychosocial stressors. HEMATOLOGIC/LYMPHATIC/IMMUNOLOGIC:Negative for prolonged bleeding, bruising easily or swollen nodes. ENDOCRINE: Negative for cold or heat intolerance, polyuria, polydipsia and goiter. The remainder of the ROS was reviewed and is negative. LAB/IMAGING: Those performed since patient's last visit have been reviewed. WBC (k/uL) Date Value 10/05/2021 6.52 RBC (m/uL) Date Value 10/05/2021 4.89 Hemoglobin (g/dL) Date Value 10/05/2021 13.6 Hematocrit (%) Date Value 10/05/2021 43.6 MCV (fL) Date Value 10/05/2021 89.2 MCH (pG) Date Value 10/05/2021 27.8 MCHC (g/dL) Date Value 10/05/2021 31.2 RDW-CV (%) Date Value 10/05/2021 13.8 Platelet Count (k/uL) Date Value 10/05/2021 277 MPV (fL) Date Value 10/05/2021 10.7 Glucose (mg/dL) Date Value 10/05/2021 64 (L) BUN (mg/dL) Date Value 10/05/2021 21 Creatinine (mg/dL) Date Value 10/05/2021 0.88 Sodium (mmol/L) Date Value 10/05/2021 140 Potassium (mmol/L) Date Value 10/05/2021 4.6 Chloride (mmol/L) Date Value 10/05/2021 102 CO2 (mmol/L) Date Value 10/05/2021 26 Protein, Total (g/dL) Date Value 10/05/2021 6.8 Albumin (g/dL) Date Value 10/05/2021 4.0 Calcium (mg/dL) Date Value 10/05/2021 9.4 Alkaline Phosphatase (U/L) Date Value 10/05/2021 54 Bilirubin, Total (mg/dL) Date Value 10/05/2021 0.3 AST (U/L) Date Value 10/05/2021 22 ALT (U/L) Date Value 10/05/2021 17 Hep C Antibody IA (no units) Date Value 09/11/2020 Negative MEDICATIONS: levothyroxine (SYNTHROID) 50 mcg tablet Take 1 tablet by mouth once daily. Take on empty stomach. For Thyroid. aspirin, enteric coated (ASPIRIN, ENTERIC COATED) 81 mg EC tablet Take 1 tablet by mouth once daily. (self-started) multivitamin-ferrous fumarate-folic acid (CENTRUM) Take 1 tablet by mouth once daily. cyanocobalamin (VITAMIN B-12) 1,000 mcg tab Take 1 tablet by mouth once daily. lisinopril (PRINIVIL) 20 mg tablet Take 1 tablet by mouth once daily. insulin glargine (LANTUS SOLOSTAR, BASAGLAR KWIKPEN) 100 unit/mL (3 mL) Inject 30 Units subcutaneously every morning. estradiol (ESTRACE) 1 mg tablet Take 1 tablet by mouth once daily. atenolol (TENORMIN) 100 mg tablet Take 1 tablet by mouth once daily. atorvastatin (LIPITOR) 20 mg tablet Take 1 tablet by mouth daily at bedtime. For cholesterol. DULoxetine (CYMBALTA) 60 mg capsule Take 1 capsule by mouth once daily. empagliflozin (JARDIANCE) 25 mg tablet Take 1 tablet by mouth once daily. metFORMIN ER (GLUCOPHAGE XR) 500 mg 24 hr tablet Take 2 tablet by mouth twice daily with food. pioglitazone (ACTOS) 15 mg tablet Take 1 tablet by mouth once daily. SITagliptin (JANUVIA) 100 mg tablet Take 1 tablet by mouth once daily. CPAP Pt device on recall list. Given findings on eval, would like pt to be changed to an AutoPAP device with humidity set at 10-16 cmH2O. Please provide download in 4 weeks. Also with mask leaks and please try to fit with dreamwear under nose FFM. omeprazole (PRILOSEC) 20 mg capsule Take 2 capsules by mouth once daily. Insulin [place], Disposable, (BD ULTRA-FINE ROSALIE PEN NEEDLE) 32 gauge x Use to inject insulinonce daily as directed hydrOXYzine HCl (ATARAX) 25 mg tablet Take 1 tablet by mouth every 6 hours as needed for anxiety. diclofenac, EC, (VOLTAREN) 75 mg EC tablet Take 1 tablet by mouth three times daily as needed. FOR PAIN blood sugar diagnostic (BLOOD GLUCOSE TEST) test strip Test blood sugar(s) 2 times daily. Dx: Type 2 DM - Uncontrolled E11.65 Insulin: Yes Lancets lancets One Touch Test blood sugar(s) 2 times daily. Dx: Type 2 DM - Controlled E11.9 Insulin: Yes Cholecalciferol, Vitamin D3, (VITAMIN D-3) 50 mcg (2,000 unit) cap Take 1 capsule by mouth once daily. MULTIVITAMIN ORAL Take 1 tablet by mouth once daily. COMPOUNDED PRESCRIPTION Diabetic shoes HISTORIES PAST MEDICAL HISTORY Diagnosis Date Arthralgia Chronic back pain Depression Developmental delay Diabetic neuropathy (HCC) feet DM (diabetes mellitus) (HCC) Hypertension Hypothyroid Mental disorder Snoring FAMILY HISTORY Problem Relation Age of Onset Arthritis Mother Diabetes Mother Hypertension Mother Hyperlipidemia Mother SOCIAL HISTORY Social History Tobacco Use Smoking status: Never Smoker Smokeless tobacco: Never Used Vaping Use Vaping Use: Never used Substance Use Topics Alcohol use: No Drug use: No PHYSICAL EXAMINATION There were no vitals taken for this visit. GENERAL EXAM: General appearance: NAD, pleasant. HEENT: NC/AT, nasal congestion absent, no oral lesions, membranes moist. Lungs: CTA bilaterally. No wheezes present. CV: RRR nl S1, S2. Extr: No cyanosis, clubbing or edema. NEUROLOGICAL EXAM: General: Awake, alert, oriented x3 (person,place,time), speech fluent, no dysarthria; comprehension, naming, repetition intact. CN: PERRL, EOMI and without nystagmus, VFF to confrontation, facial sensation and strength are normal and symmetric, hearing is intact to finger rub bilaterally, palate and tongue movements are intact and symmetric. SCM and trapezius strength normal. Motor: Normal tone, bulk and strength (5/5) bilaterally (throughout extremities x4). Coordination: FNF, ZIGGY intact. No tremors. Sensation: Light touch intact throughout. No evidence of neglect. Gait: Stable. Assessment and Plan: ASSESSMENT/PLAN: 1. HIMANSHU (obstructive sleep apnea) - ICD9: 327.23, ICD10: G47.33 (primary diagnosis) 2. Class 2 obesity with body mass index (BMI) of 38.0 to 38.9 in adult, unspecified obesity type, unspecified whether serious comorbidity present - ICD9: 278.00, V85.38, ICD10: E66.9, Z68.38 Patient doing well on PAP as above. AHI controlled per objective download and both subjective and objective history support compliance. No changes in pressure settings at this time. Encouraged compliance. Reminded to clean and replace equipment regularly. Showed pt how to adjust humidifier with [employer]. Follow up 9 months or sooner prn. Ranjeet Shields MD I spent a total of 25 minutes on the date of the service which included preparing to see the patient, [id number] patient care, completing clinical documentation, obtaining and/or reviewing separately obtained history, performing a medically appropriate examination, counseling and educating the pat ient/family/caregiver, independently interpreting results (not separately reported) and communicating results to the patient/family/caregiver. the visit in counseling / coordination of care. documented in this encounterAultman [facility]07-16-2021 Miscellaneous Notes* Telephone Encounter - Katherine Pizano APRN.CNP - 05/10/2021 9:24 AM EDT Printed scripts were faxed yesterday. Katherine Pizano APRN.ZIGGY * Telephone Encounter - Charles Cortez RN - 05/09/2021 1:48 PM EDT Jessica Murguia, reports she received e-scripts for adult diapers and incontinent supplies. Needs a printed paper Rx for these due to patient's insurance. Insurance will not cover without the printed paper Rx's. Please fax to fax # [phone]. documented in this encounterAultman [facility]08-24-2020 History of Past illness Narrative* Problem Noted Date Resolved Date Chest pain 06/18/2020 03/20/2021 Pulmonary hypertension 02/24/2019 05/26/202 1 Overview: Echo at that time was negative. Type II diabetes mellitus, uncontrolled 07/15/20 18 11/27/2021 documented as of this encounter (statuses as of 01/20/2022) [place] [id number] History of Past illness Narrative* Problem Noted Date Resolved Date Chest pain 06/18/2020 03/20/2021 Pulmonary hypertension 02/24/2019 1 Overview: Echo at that time was negative. Type II diabetes mellitus, uncontrolled 07/15/20 18 11/27/2021 documented as of this encounter (statuses as of 02/14/2022) [place] [id number] History of Past illness Narrative* Problem Noted Date Resolved Date Chest pain 06/18/2020 03/20/2021 Pulmonary hypertension 02/24/2019 1 Overview: Echo at that time was negative. Type II diabetes mellitus, uncontrolled 07/15/20 18 11/27/2021 documented as of this encounter (statuses as of 02/18/2022) [place] [id number] History of Past illness Narrative* Problem Noted Date Resolved Date Chest pain 06/18/2020 03/20/2021 Pulmonary hypertension 02/24/2019 1 Overview: Echo at that time was negative. Type II diabetes mellitus, uncontrolled 07/15/20 18 11/27/2021 documented as of this encounter (statuses as of 02/25/2022) [place] [id number] History of Past illness Narrative* Problem Noted Date Resolved Date Chest pain 06/18/2020 03/20/2021 Pulmonary hypertension 02/24/2019 1 Overview: Echo at that time was negative. Type II diabetes mellitus, uncontrolled 07/15/20 18 11/27/2021 documented as of this encounter (statuses as of 03/03/2022) [place] [id number] History of Past illness Narrative* Problem Noted Date Resolved Date Chest pain 06/18/2020 03/20/2021 Pulmonary hypertension 02/24/2019 Overview: Echo at that time was negative. Type II diabetes mellitus, uncontrolled 07/15/20 18 11/27/2021 documented as of this encounter (statuses as of 03/25/2022) [place] [id number] History of Past illness Narrative* Problem Noted Date Resolved Date Chest pain 06/18/2020 03/20/2021 Pulmonary hypertension 02/24/2019 1 Overview: Echo at that time was negative. Type II diabetes mellitus, uncontrolled 07/15/20 18 11/27/2021 documented as of this encounter (statuses as of 04/01/2022) [place] [id number] History of Past illness Narrative* Problem Noted Date Resolved Date Chest pain 06/18/2020 03/20/2021 Pulmonary hypertension 02/24/2019 1 Overview: Echo at that time was negative. Type II diabetes mellitus, uncontrolled 07/15/20 18 11/27/2021 documented as of this encounter (statuses as of 04/18/2022) [place] [id number] History of Past illness Narrative* Problem Noted Date Resolved Date Chest pain 06/18/2020 03/20/2021 Pulmonary hypertension 02/24/2019 1 Overview: Echo at that time was negative. Type II diabetes mellitus, uncontrolled 07/15/20 18 11/27/2021 documented as of this encounter (statuses as of 05/05/2022) [place] [id number] History of Past illness Narrative* Problem Noted Date Resolved Date Chest pain 06/18/2020 03/20/2021 Pulmonary hypertension 02/24/2019 Overview: Echo at that time was negative. Type II diabetes mellitus, uncontrolled 07/15/20 18 11/27/2021 documented as of this encounter (statuses as of 05/05/2022) [place] [address] History of Past illness Narrative* Problem Noted Date Resolved Date Chest pain 06/18/2020 03/20/2021 Pulmonary hypertension 02/24/2019 1 Overview: Echo at that time was negative. Type II diabetes mellitus, uncontrolled 07/15/20 18 11/27/2021 documented as of this encounter (statuses as of 06/13/2022) [address]24-2020 History of Past illness Narrative* Problem Noted Date Resolved Date Chest pain 06/18/2020 03/20/2021 Pulmonary hypertension 02/24/2019 Overview: Echo at that time was negative. Type II diabetes mellitus, uncontrolled 07/15/20 18 11/27/2021 documented as of this encounter (statuses as of 06/17/2022) [place] [address] History of Past illness Narrative* Problem Noted Date Resolved Date Chest pain 06/18/2020 03/20/2021 Pulmonary hypertension 02/24/2019 Overview: Echo at that time was negative. Type II diabetes mellitus, uncontrolled 07/15/20 18 11/27/2021 documented as of this encounter (statuses as of 06/18/2022) [address] History of Past illness Narrative* Problem Noted Date Resolved Date Chest pain 06/18/2020 03/20/2021 Pulmonary hypertension 02/24/2019 1 Overview: Echo at that time was negative. Type II diabetes mellitus, uncontrolled 07/15/20 18 11/27/2021 documented as of this encounter (statuses as of 07/04/2022) [place] [address] History of Past illness Narrative* Problem Noted Date Resolved Date Chest pain 06/18/2020 03/20/2021 Pulmonary hypertension 02/24/2019 1 Overview: Echo at that time was negative. Type II diabetes mellitus, uncontrolled 07/15/20 18 11/27/2021 documented as of this encounter (statuses as of 07/08/2022) [address]2020 History of Past illness Narrative* Problem Noted Date Resolved Date Chest pain 06/18/2020 03/20/2021 Pulmonary hypertension 02/24/2019 1 Overview: Echo at that time was negative. Type II diabetes mellitus, uncontrolled 07/15/20 18 11/27/2021 documented as of this encounter (statuses as of 07/11/2022) [address]24-2020 History of Past illness Narrative* Problem Noted Date Resolved Date Chest pain 06/18/2020 03/20/2021 Pulmonary hypertension 02/24/2019 1 Overview: Echo at that time was negative. Type II diabetes mellitus, uncontrolled 07/15/20 18 11/27/2021 documented as of this encounter (statuses as of 08/01/2022) [address]24-2020 History of Past illness Narrative* Problem Noted Date Resolved Date Chest pain 06/18/2020 03/20/2021 Pulmonary hypertension 02/24/2019 1 Overview: Echo at that time was negative. Type II diabetes mellitus, uncontrolled 07/15/20 18 11/27/2021 documented as of this encounter (statuses as of 08/08/2022) [address]24-2020 History of Past illness Narrative* Problem Noted Date Resolved Date Chest pain 06/18/2020 03/20/2021 Pulmonary hypertension 02/24/2019 1 Overview: Echo at that time was negative. Type II diabetes mellitus, uncontrolled 07/15/20 18 11/27/2021 documented as of this encounter (statuses as of 08/12/2022) [address]24-2020 History of Past illness Narrative* Problem Noted Date Resolved Date Chest pain 06/18/2020 03/20/2021 Pulmonary hypertension 02/24/2019 1 Overview: Echo at that time was negative. Type II diabetes mellitus, uncontrolled 07/15/20 18 11/27/2021 documented as of this encounter (statuses as of 09/04/2022) [address]2020 History of Past illness Narrative* Problem Noted Date Resolved Date Chest pain 06/18/2020 03/20/2021 Pulmonary hypertension 02/24/2019 1 Overview: Echo at that time was negative. Type II diabetes mellitus, uncontrolled 07/15/20 18 11/27/2021 documented as of this encounter (statuses as of 09/05/2022) [address]24-2020 History of Past illness Narrative* Problem Noted Date Resolved Date Chest pain 06/18/2020 03/20/2021 Pulmonary hypertension 02/24/2019 1 Overview: Echo at that time was negative. Type II diabetes mellitus, uncontrolled 07/15/20 18 11/27/2021 documented as of this encounter (statuses as of 10/02/2022) [address]24[address]2020 History of Past illness Narrative* Problem Noted Date Resolved Date Chest pain 06/18/2020 03/20/2021 Pulmonary hypertension 02/24/2019 1 Overview: Echo at that time was negative. Type II diabetes mellitus, uncontrolled 07/15/20 18 11/27/2021 documented as of this encounter (statuses as of 10/09/2022) [address] History of Past illness Narrative* Problem Noted Date Resolved Date Chest pain 06/18/2020 03/20/2021 Pulmonary hypertension 02/24/2019 1 Overview: Echo at that time was negative. Type II diabetes mellitus, uncontrolled 07/15/20 18 11/27/2021 documented as of this encounter (statuses as of 10/10/2022) [address]24[address]2020 History of Past illness Narrative* Problem Noted Date Resolved Date Chest pain 06/18/2020 03/20/2021 Pulmonary hypertension 02/24/2019 1 Overview: Echo at that time was negative. Type II diabetes mellitus, uncontrolled 07/15/20 18 11/27/2021 documented as of this encounter (statuses as of 10/31/2022) [facility] HIMANSHU (obstructive sleep apnea)- Primary Obstructive sleep apnea (adult) (pediatric) Class 2 obesity with body mass index (BMI) of 38.0 to 38.9 in adult, unspecified obesity type, unspecified whether serious comorbidity present [facility] Diagnosis Urge incontinence- Primary [facility] Diagnosis Type 2 diabetes mellitus with diabetic neuropathy, 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)- Primary [facility] Diagnosis Essential hypertension, benign Hyperlipidemia, unspecified hyperlipidemia type Depression, unspecified depression type Type 2 diabetes mellitus with diabetic neuropathy, without long-term current use of insulin (HCC) [facility]* Diagnosis Neck pain- Primary Cervicalgia Chronic bilateral low back pain without sciatica [facility] Diagnosis Neck pain Cervicalgia Chronic bilateral low back pain without sciatica [facility] Diagnosis Essential hypertension, benign [facility]* Diagnosis Abrasion- Primary Abrasion or friction burn of other, multiple, and unspecified sites, without mention of infection Uncontrolled type 2 diabetes mellitus with hypoglycemia, unspecified hypoglycemia coma status (HCC) Type 2 diabetes mellitus with diabetic neuropathy, 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) Essential hypertension, benign Mixed hyperlipidemia Severe sleep apnea Vitamin B 12 deficiency Other B-complex deficiencies Acquired hypothyroidism Unspecified hypothyroidism Depression, unspecified depression type [facility] Diagnosis Neck pain- Primary Cervicalgia Chronic bilateral low back pain without sciatica Cervical radiculopathy Brachial neuritis or radiculitis nos [facility]* Diagnosis Acquired hypothyroidism Unspecified hypothyroidism [facility]* Diagnosis Controlled type 2 diabetes mellitus without complication, with long-term current use of insulin (HCC) [facility] Diagnosis Chronic left shoulder pain- Primary Pain in joint, shoulder region [facility]* Diagnosis GERD without esophagitis Esophageal reflux [facility] Diagnosis Finger pain, right- Primary Pain in limb [facility]* Diagnosis Type 2 diabetes mellitus with diabetic neuropathy, without long-term current use of insulin (HCC) Essential hypertension, benign Hyperlipidemia, unspecified hyperlipidemia type [facility]* Diagnosis Acute pain of left shoulder- Primary [facility]* Diagnosis Chronic left shoulder pain Pain in joint, shoulder region Depression, unspecified depression type documented in this encounter [facility] noteNo assessment information availableWLutheran Hospital Work Phone: Evaluation note* Diagnosis Essential hypertension, benign documented in this encounter [facility] note* Diagnosis Abrasion Abrasion or friction burn of other, multiple, and unspecified sites, without mention of infection documented in this encounter [facility] note* Diagnosis Open wound of skin- Primary Encounter for immunization Need for other specified prophylactic vaccination against single bacterial disease Type 2 diabetes mellitus with diabetic neuropathy, without long-term current use of insulin (HCC) Hyperlipidemia, unspecified hyperlipidemia type Acquired hypothyroidism Unspecified hypothyroidism documented in this encounter [facility] note* Diagnosis Uncontrolled type 2 diabetes mellitus with hypoglycemia, unspecified hypoglycemia coma status (HCC) documented in this encounter [facility] note* Diagnosis Type 2 diabetes mellitus with diabetic neuropathy, 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)- Primary Mixed hyperlipidemia Essential hypertension, benign Severe sleep apnea Vitamin B 12 deficiency Other B-complex deficiencies Acquired hypothyroidism Unspecified hypothyroidism Depression, unspecified depression type Encounter for screening mammogram for malignant neoplasm of breast Other screening mammogram [facility]* Diagnosis Essential hypertension, benign [facility]* Diagnosis Chronic left shoulder pain Pain in joint, shoulder region Acquired hypothyroidism Unspecified hypothyroidism documented in this encounter [facility] note* Diagnosis Essential hypertension, benign- Primary Open wound of skin [facility]* Diagnosis Type 2 diabetes mellitus with diabetic neuropathy, without long-term current use of insulin (HCC) Essential hypertension, benign Hyperlipidemia, unspecified hyperlipidemia type [facility]* Diagnosis Depression, unspecified depression type Chronic left shoulder pain Pain in joint, shoulder region [facility]* Diagnosis Uncontrolled type 2 diabetes mellitus with hypoglycemia, unspecified hypoglycemia coma status (HCC) [facility]* Diagnosis Controlled type 2 diabetes mellitus without complication, with long-term current use of insulin (HCC) [facility]* Diagnosis Type 2 diabetes mellitus with diabetic neuropathy, unspecified whether halfway insulin use (HCC)- Primary Acquired hypothyroidism Unspecified hypothyroidism Insomnia, unspecified type Depression, unspecified depression type Developmental delay Lack of normal physiological development, unspecified Vitamin B 12 deficiency Other B-complex deficiencies Severe sleep apnea Essential hypertension, benign Mixed hyperlipidemia [facility]* Diagnosis Type 2 diabetes mellitus with diabetic neuropathy, 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)- Primary [facility]* Diagnosis Open wound of skin [facility]* Diagnosis GERD without esophagitis Esophageal reflux [facility]* Diagnosis Type 2 diabetes mellitus with diabetic neuropathy, without long-term current use of insulin (HCC) Essential hypertension, benign Hyperlipidemia, unspecified hyperlipidemia type [facility]* Diagnosis Encounter for screening mammogram for malignant neoplasm of breast Other screening mammogram [facility]* Diagnosis Type 2 diabetes mellitus with diabetic neuropathy, unspecified whether halfway insulin use (HCC)- Primary Essential hypertension, benign Mixed hyperlipidemia Vitamin B 12 deficiency Other B-complex deficiencies Acquired hypothyroidism Unspecified hypothyroidism Depression, unspecified depression type HIMANSHU (obstructive sleep apnea) Obstructive sleep apnea (adult) (pediatric) Microalbuminuria Proteinuria Encounter for screening mammogram for malignant neoplasm of breast Other screening mammogram Intertrigo Other specified erythematous condition [facility]* Diagnosis Type 2 diabetes mellitus with diabetic neuropathy, without long-term current use of insulin ([facility]) Essential hypertension, benign Hyperlipidemia, unspecified hyperlipidemia type documented [facility]* Diagnosis Encounter for screening mammogram for malignant neoplasm of breast Other screening mammogram [facility]* Diagnosis Injury of left shoulder, initial encounter- Primary [facility]* Diagnosis Acute pain of left shoulder- Primary Dermatitis Contact dermatitis and other eczema, due to unspecified cause Primary hypertension Unspecified essential hypertension Type 2 diabetes mellitus with diabetic neuropathy, 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) documented in this encounter [facility] note* Diagnosis Uncontrolled type 2 diabetes mellitus with hypoglycemia, unspecified hypoglycemia coma status (HCC) [facility] Diagnosis HIMANSHU (obstructive sleep apnea) Obstructive sleep apnea (adult) (pediatric) documented [facility]* Diagnosis Essential hypertension, benign- Primary Tinea pedis of left foot Dermatophytosis of foot [facility]* Diagnosis Preop examination- Primary Preoperative examination, unspecified Acute pain of left shoulder Open wound of skin [facility]* Diagnosis Acquired hypothyroidism Unspecified hypothyroidism Chronic left shoulder pain Pain in joint, shoulder region [facility]* Diagnosis Uncontrolled type 2 diabetes mellitus with hypoglycemia, unspecified hypoglycemia coma status (HCC) [facility]* Diagnosis Type 2 diabetes mellitus with diabetic neuropathy, without long-term current use of insulin (HCC) [facility]* Diagnosis GERD without esophagitis Esophageal reflux [facility]* Diagnosis Type 2 diabetes mellitus with diabetic neuropathy, unspecified whether halfway insulin use (HCC)- Primary Essential hypertension, benign HIMANSHU on CPAP Obstructive sleep apnea (adult) (pediatric) Vitamin B 12 deficiency Other B-complex deficiencies Microalbuminuria Proteinuria Acquired hypothyroidism Unspecified hypothyroidism Depression, unspecified depression type Developmental delay Lack of normal physiological development, unspecified Hyperlipidemia, unspecified hyperlipidemia type Encounter for screening examination for other mental health and behavioral disorders [facility] Diagnosis HIMANSHU on CPAP- Primary Obstructive sleep apnea (adult) (pediatric) documented [facility]* Diagnosis Renal insufficiency- Primary Unspecified disorder of kidney and ureter [facility]* Diagnosis Uncontrolled type 2 diabetes mellitus with hypoglycemia, unspecified hypoglycemia coma status (HCC) documented [facility]* Diagnosis Essential hypertension, benign Hyperlipidemia, unspecified hyperlipidemia type Type 2 diabetes mellitus with diabetic neuropathy, without long-term current use of insulin (HCC) documented [facility] this [facility]* Diagnosis Injury of left shoulder, initial encounter documented [facility] this [facility]* Diagnosis Chronic left shoulder pain Pain in joint, shoulder region Depression, unspecified depression type documented [facility] this [facility]* Diagnosis Finger pain, right Pain in limb [facility]* Diagnosis Chronic left shoulder pain Pain in joint, shoulder region Acquired hypothyroidism Unspecified hypothyroidism [facility]* Diagnosis Conjunctivitis of right eye, unspecified conjunctivitis type- Primary Acute otitis media, right Unspecified otitis media [facility]* Diagnosis Viral URI- Primary Acute upper respiratory infections of unspecified site [facility]* Diagnosis HIMANSHU on CPAP- Primary Obstructive sleep apnea (adult) (pediatric) documented [facility]* Diagnosis Hyperlipidemia, unspecified hyperlipidemia type Essential hypertension, benign Type 2 diabetes mellitus with diabetic neuropathy, without long-term current use of insulin (HCC) documented [facility]* Diagnosis Chronic left shoulder pain Pain in joint, shoulder region Depression, unspecified depression type [facility] this [facility]* Diagnosis Visit for screening mammogram- Primary Other screening mammogram [facility]* Diagnosis Urinary frequency- Primary Acute UTI Urinary tract infection, site not specified [facility]* Diagnosis Type 2 diabetes mellitus with diabetic neuropathy, 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)- Primary Essential hypertension, benign Mixed hyperlipidemia HIMANSHU on CPAP Obstructive sleep apnea (adult) (pediatric) Vitamin B 12 deficiency Other B-complex deficiencies Microalbuminuria Proteinuria Acquired hypothyroidism Unspecified hypothyroidism Depression, unspecified depression type Renal insufficiency Unspecified disorder of kidney and ureter Encounter for immunization Need for other specified prophylactic vaccination against single bacterial disease Abrasion of left great toe, initial encounter Uncontrolled type 2 diabetes mellitus with hypoglycemia, unspecified hypoglycemia coma status (HCC) [facility]* Diagnosis Essential hypertension, benign documented [facility]* Diagnosis GERD without esophagitis Esophageal reflux [facility]* Diagnosis Acute midline low back pain without sciatica- Primary Acute midline low back pain without sciatica documented [facility]* Diagnosis Acute midline low back pain without sciatica [facility]* Diagnosis Essential hypertension, benign Hyperlipidemia, unspecified hyperlipidemia type Type 2 diabetes mellitus with diabetic neuropathy, without long-term current use of insulin (HCC) [facility]* Diagnosis Depression, unspecified depression type Essential hypertension, benign documented in this encounter [facility] for referral (narrative)* Diagnostic Procedure Only (Urgent) - Closed Specialty Diagnoses / Procedures [facility] To [facility] XR IMAGING Diagnoses Finger pain, right Procedures XR DIGIT GENERAL 3V FRONTAL/LAT/OBL RIGHT RADEX FINGR MINIMUM 2 VIEWS Grzegorz Ortiz MD [address] [place] [address] Xr Imaging Referral ID Status Reason Start Date Expiration Date V isits Requested Visits Authorized [id number] Closed Auto-Generate d Referral 08/01/2022 08/31/2023 1 1 [facility] for referral (narrative)* Diagnostic Procedure Only (Routine) - Authorized Specialty Diagnoses / Procedures Referred By Horace Referred To Contact BR IMAGING Diagnoses Encounter for screening mammogram for malignant neoplasm of breast Procedures GAMALIEL SCREENING SCREENING MAMMOGRAPHY BI 2-VIEW BREAST INC Ranjeet Bolanos MD [address] [place] [id number] [facility] [address] [place] [address] Referral ID Status Reason Start Date Expiration Date Visits Requested Visits Authorized [id number] Authorized Auto-Generat ed Referral 11/10/2022 12/10/2023 1 1 [facility] for referral (narrative)* Diagnostic Procedure Only (Routine) - Closed Specialty Diagnoses / Procedures [facility] Ref[facility] To Contact BR IMAGING Diagnoses Encounter for screening mammogram for malignant neoplasm of breast Procedures GAMALIEL SCREENING SCREENING MAMMOGRAPHY BI 2-VIEW BREAST INC Ranjeet Bolanos MD [address] [place] [id number] [facility] [address] [place] [address] Referral ID Status Reason Start Date Expiration Date V isits Requested Visits Authorized [id number] Closed Auto-Generate d Referral 11/10/2022 12/10/2023 1 1 [facility] for referral (narrative)* Diagnostic Procedure Only (Routine) - Authorized Specialty Diagnoses / Procedures Referred By Contac t Referred To Contact BR IMAGING Diagnoses Encounter for screening mammogram for malignant neoplasm of breast Procedures GAMALIEL SCREENING SCREENING MAMMOGRAPHY BI 2-VIEW BREAST INC CAD Ranjeet Goodwin MD [address] [place] [address] [facility] [address] [place] [address] Referral ID Status Reason Start Date Expiration Date Visits Requested Visits Authorized [id number] Authorized Auto-Generat ed Referral 12/07/2023 01/05/2025 1 1 * Consult, Test, Treat (Routine) - Authorized Specialty Diagnoses / Procedures Referred By Noahac t Referred To Contact Diagnoses HIMANSHU (obstructive sleep apnea) Procedures CONSULT TO SLEEP MEDICINE - ADULT OFFICE/OUTPATIENT [facility] 60 MINUTES Ranjeet Goodwin MD [address] [place] [address] Referral ID Status Reason Start Date Expiration Date Visits Requested Visits Authorized [id number] Authorized PCP Requested Referral 12/07/2023 12/06/2024 [facility] Diagnostic Procedure Only (Urgent) - Closed Specialty Diagnoses / Procedures Referred By Contac t Referred To Contact XR IMAGING Diagnoses Injury of left shoulder, initial encounter Procedures XR HUMERUS 2V AP/LAT LEFT RADEX HUMERUS MINIMUM 2 VIEWS Augustine Arthur APRN.CNP [address] [place] [address] Xr [place] [address] Referral ID Status Reason Start Date Expiration Date V isits Requested Visits Authorized [id number] Closed Auto-Generate d Referral 02/09/2024 03/10/2025 1 1 * Diagnostic Procedure Only (Urgent) - Closed Specialty Diagnoses / Procedures Referred By Contac t Referred To Contact XR IMAGING Diagnoses Injury of left shoulder, initial encounter Procedures XR SHOULDER GENERAL 3V OR MORE AP/TRUE AP/OTHER LEFT RADEX SHOULDER COMPLETE MINIMUM 2 VIEWS Augustine Arthur, METAL PICKLING EQUIPMENT OPERATOR [address] [place] [address] [place] [address] Referral ID Status Reason Start Date Expiration Date V isits Requested Visits Authorized [id number] Closed Auto-Generate d Referral 02/09/2024 03/10/2025 1 1 [facility] for referral (narrative)* Diagnostic Procedure Only (Urgent) - Closed Specialty Diagnoses / Procedures Referred By Contac t Referred To Contact XR IMAGING Diagnoses Finger pain, right Procedures XR DIGIT GENERAL 3V FRONTAL/LAT/OBL RIGHT RADEX FINGR MINIMUM 2 VIEWS Grzegorz Ortiz MD [address] [place] [id number] Xr Imaging [facility] Referral ID Status Reason Start Date Expiration Date V isits Requested Visits Authorized [id number] Closed Auto-Generate d Referral 08/01/2022 08/31/2023 1 1 [facility] for visit Narrative* Diagnostic Procedure Only (Routine) - Closed Specialty Diagnoses / Procedures Referred By Contac t Referred To Contact BR IMAGING Diagnoses Encounter for screening mammogram for malignant neoplasm of breast Procedures GAMALIEL SCREENING SCREENING MAMMOGRAPHY BI 2-VIEW BREAST INC Ranjeet Bolanos MD [address] [place] [address] [facility] [address] [place] [address] Referral ID Status Reason Start Date Expiration Date V isits Requested Visits Authorized [id number] Closed Auto-Generate d Referral 11/10/2022 12/10/2023 1 1 [facility] for visit Narrative* Diagnostic Procedure Only (Routine) - Closed Specialty Diagnoses / Procedures Referred By Contac t Referred To Contact BR IMAGING Diagnoses Encounter for screening mammogram for malignant neoplasm of breast Procedures GAMALIEL SCREENING SCREENING MAMMOGRAPHY BI 2-VIEW BREAST INC CAD Ranjeet Goodwin MD [address] [place] [address] [facility] [address] [place] [address] Referral ID Status Reason Start Date Expiration Date V isits Requested Visits Authorized [id number] Closed Auto-Generate d Referral 12/07/2023 01/05/2025 1 1 [facility] for visit Narrative* Diagnostic Procedure Only (Urgent) - Closed Specialty Diagnoses / Procedures Referred By Contac t Referred To Contact XR IMAGING Diagnoses Injury of left shoulder, initial encounter Procedures XR HUMERUS 2V AP/LAT LEFT RADEX HUMERUS MINIMUM 2 VIEWS Augustine Arthur APRN.METAL PICKLING EQUIPMENT OPERATOR [address] [place] [address] [place] [address] Referral ID Status Reason Start Date Expiration Date V isits Requested Visits Authorized [id number] Closed Auto-Generate d Referral 02/09/2024 03/10/2025 1 1 [facility] for visit Narrative* Diagnostic Procedure Only (Urgent) - Closed Specialty Diagnoses / Procedures Referred By Contac t Referred To Contact XR IMAGING Diagnoses Finger pain, right Procedures XR DIGIT GENERAL 3V FRONTAL/LAT/OBL RIGHT RADEX FINGR MINIMUM 2 VIEWS Grzegorz Ortiz MD [address] [place] [address] [place] [address] Referral ID Status Reason Start Date Expiration Date V isits Requested Visits Authorized [id number] Closed Auto-Generate d Referral 08/01/2022 08/31/2023 1 1 [facility] for visit Narrative* Diagnostic Procedure Only (Routine) - Closed Specialty Diagnoses / Procedures Referred By Contac t Referred To Contact BR IMAGING Diagnoses Visit for screening mammogram Procedures GAMALIEL SCREENING SCREENING MAMMOGRAPHY BI 2-VIEW BREAST INC CAD Ranjeet Goodwin MD [address] [place] [address] Phone: tel: fax: [facility] [address] [place] [address] Referral ID Status Reason Start Date Expiration Date V isits Requested Visits Authorized [id number] Closed Auto-Generate d Referral 12/26/2024 01/22/2026 1 [facility] Procedure Only (Urgent) - Closed Specialty Diagnoses / Procedures Referred By Horace hernandez Referred To Contact XR IMAGING Diagnoses Acute midline low back pain without sciatica Procedures XR LUMBAR GENERAL 3V AP/LAT/L5-S1 RADEX SPINE LUMBOSACRAL 2/3 VIEWS Ilda Epstein, PA [address] [place] [address] Phone: tel: fax: [place] [address] Referral ID Status Reason Start Date Expiration Date V isits Requested Visits Authorized [id number] Closed Auto-Generate d Referral 04/20/2025 05/20/2026 1 1 [facility] Summary Purpose Family History No Family History Records Found Relationship Condition Age at Onset Recorded Date/T tom Not Specified Unknown Disorder of intestine Unknown Malignant neoplasm of colon Unknown Malignant neoplasm of ovary Unknown Diabetes mellitus Unknown Osteoporosis Unknown Anxiety Unknown Arthritis Unknown Coagulation disorder Unknown Depression Unknown Heart disease Unknown Hyperlipidemia Unknown Malignant melanoma Unknown Mental disorder Unknown Myocardial infarction Unknown Malignant neoplasm of breast Unknown Malignant neoplasm Unknown Hypertension Unknown Parkinson's disease Unknown Disorder of thyroid Unknown Cerebrovascular accident (CVA) Unknown Advance Directives No Advanced Directives Records FoundDocuments on File Type Date Recorded Patient Adzing And Boring Machine Feeder Expl anation Advance Directive(s) 09/23/2018 8:40 AM Documents on File Type Date Recorded Patient Adzing And Boring Machine Feeder Expl anation Advance Directive(s) 09/23/2018 8:40 AM Advance Directive Response Recorded Date/ Time Living Will No January 07, 2023 4:50pm Power of Melter Supervisor [employer] Furnace No January 07 4:50pm Reason for Referral Specialty Diagnoses / Procedures Referred By Horace hernandez Referred To Contact [facility] Diagnoses Neck pain Chronic bilateral low back pain without sciatica Procedures CONSULT TO PHYSICAL THERAPY PHYSICAL THERAPY EVALUATION HIGH COMPLEX 45 MINS Odalys Brock APRN.METAL PICKLING EQUIPMENT OPERATOR [address] [place] [address] [facility] [address] [place] [address] Referral ID Status Reason Start Date Expiration Date Visits Requested Visits Authorized [id number] Pending Review Auto-Generat ed Referral 03/25/2022 03/25/2023 1 1 Specialty Diagnoses / Procedures Referred By Contac t Referred To Contact Orthopedics Diagnoses Injury of left shoulder, initial encounter Procedures CONSULT TO ORTHOPAEDICS OFFICE/OUTPATIENT [facility] MDM 60 MINUTES Augustine Arthur APRN.METAL PICKLING EQUIPMENT OPERATOR [address] [place] [address] Referral ID Status Reason Start Date Expiration Date Visits Requested Visits Authorized [id number] Authorized PCP Requested Referral 02/09/2024 02/08/2025 1 1 Specialty Diagnoses / Procedures Referred By Contac t Referred To Contact XR IMAGING Diagnoses Injury of left shoulder, initial encounter Procedures XR HUMERUS 2V AP/LAT LEFT RADEX HUMERUS MINIMUM 2 VIEWS Augustine Arthur APRN.METAL PICKLING EQUIPMENT OPERATOR [address] [place] [address] [place] [address] Referral ID Status Reason Start Date Expiration Date V isits Requested Visits Authorized [id number] Closed Auto-Generate d Referral 02/09/2024 03/10/2025 1 1 Specialty Diagnoses / Procedures Referred By Contac t Referred To Contact XR IMAGING Diagnoses Injury of left shoulder, initial encounter Procedures XR SHOULDER GENERAL 3V OR MORE AP/TRUE AP/OTHER LEFT RADEX SHOULDER COMPLETE MINIMUM 2 VIEWS Augustine Arthur APRN.METAL PICKLING EQUIPMENT OPERATOR [address] [place] [address] [place] [address] Referral ID Status Reason Start Date Expiration Date V isits Requested Visits Authorized [id number] Closed Auto-Generate d Referral 02/09/2024 03/10/2025 1 1 Chief Complaint and Reason for Visit Chief Complaint FALL Additional Source Comments INFORMATION SOURCE (unrecogn ized section and content) DATE CREATED AUTHOR [facility]2018 [facility] DATE CREATED AUTHOR AUTHOR'S ORGANIZ ATION 05/23/2020 [facility] DATE CREATED AUTHOR AUTHOR'S ORGANIZ ATION 09/18/2024 [facility] DATE CREATED AUTHOR AUTHOR'S ORGANIZ ATION 08/15/2025 [facility] Source Comments (unrecognize d section and content) In the event this informatio n is protected by the Federal Confidentiality of Alcohol and Drug Abuse Patient Records regulations: The Federal rules restrict any use of the information to criminally investigate or prosecute any alcohol or drug abuse patient.[facility] the event this information is protected by the Federal Confidentiality of Alcohol and Drug Abuse Patient Records regulations: The Federal rules restrict any use of the information to criminally investigate or prosecute any alcohol or drug abuse patient.[facility] the event this information is protected by the Federal Confidentiality of Alcohol and Drug Abuse Patient Records regulations: The Federal rules restrict any use of the information to criminally investigate or prosecute any alcohol or drug abuse patient.[facility] the event this information is protected by the Federal Confidentiality of Alcohol and Drug Abuse Patient Records regulations: The Federal rules restrict any use of the information to criminally investigate or prosecute any alcohol or drug abuse patient.[facility] the event this information is protected by the Federal Confidentiality of Alcohol and Drug Abuse Patient Records regulations: The Federal rules restrict any use of the information to criminally investigate or prosecute any alcohol or drug abuse patient.[facility] the event this information is protected by the Federal Confidentiality of Alcohol and Drug Abuse Patient Records regulations: The Federal rules restrict any use of the information to criminally investigate or prosecute any alcohol or drug abuse patient.[facility] the event this information is protected by the Federal Confidentiality of Alcohol and Drug Abuse Patient Records regulations: The Federal rules restrict any use of the information to criminally investigate or prosecute any alcohol or drug abuse patient.[facility] the event this information is protected by the Federal Confidentiality of Alcohol and Drug Abuse Patient Records regulations: The Federal rules restrict any use of the information to criminally investigate or prosecute any alcohol or drug abuse patient.[facility] the event this information is protected by the Federal Confidentiality of Alcohol and Drug Abuse Patient Records regulations: The Federal rules restrict any use of the information to criminally investigate or prosecute any alcohol or drug abuse patient.[facility] the event this information is protected by the Federal Confidentiality of Alcohol and Drug Abuse Patient Records regulations: The Federal rules restrict any use of the information to criminally investigate or prosecute any alcohol or drug abuse patient.[facility] the event this information is protected by the Federal Confidentiality of Alcohol and Drug Abuse Patient Records regulations: The Federal rules restrict any use of the information to criminally investigate or prosecute any alcohol or drug abuse patient.[facility] the event this information is protected by the Federal Confidentiality of Alcohol and Drug Abuse Patient Records regulations: The Federal rules restrict any use of the information to criminally investigate or prosecute any alcohol or drug abuse patient.[facility] the event this information is protected by the Federal Confidentiality of Alcohol and Drug Abuse Patient Records regulations: The Federal rules restrict any use of the information to criminally investigate or prosecute any alcohol or drug abuse patient.[facility] the event this information is protected by the Federal Confidentiality of Alcohol and Drug Abuse Patient Records regulations: The Federal rules restrict any use of the information to criminally investigate or prosecute any alcohol or drug abuse patient.[facility] the event this information is protected by the Federal Confidentiality of Alcohol and Drug Abuse Patient Records regulations: The Federal rules restrict any use of the information to criminally investigate or prosecute any alcohol or drug abuse patient.[facility] the event this information is protected by the Federal Confidentiality of Alcohol and Drug Abuse Patient Records regulations: The Federal rules restrict any use of the information to criminally investigate or prosecute any alcohol or drug abuse patient.[facility]In the event this information is protected by the Federal Confidentiality of Alcohol and Drug Abuse Patient Records regulations: The Federal rules restrict any use of the information to criminally investigate or prosecute any alcohol or drug abuse patient.[facility]In the event this information is protected by the Federal Confidentiality of Alcohol and Drug Abuse Patient Records regulations: The Federal rules restrict any use of the information to criminally investigate or prosecute any alcohol or drug abuse patient.[facility]In the event this information is protected by the Federal Confidentiality of Alcohol and Drug Abuse Patient Records regulations: The Federal rules restrict any use of the information to criminally investigate or prosecute any alcohol or drug abuse patient.[facility]In the event this information is protected by the Federal Confidentiality of Alcohol and Drug Abuse Patient Records regulations: The Federal rules restrict any use of the information to criminally investigate or prosecute any alcohol or drug abuse patient.[facility]In the event this information is protected by the Federal Confidentiality of Alcohol and Drug Abuse Patient Records regulations: The Federal rules restrict any use of the information to criminally investigate or prosecute any alcohol or drug abuse patient.[facility] HospitalIn the event this information is protected by the Federal Confidentiality of Alcohol and Drug Abuse Patient Records regulations: The Federal rules restrict any use of the information to criminally investigate or prosecute any alcohol or drug abuse patient.[facility]In the event this information is protected by the Federal Confidentiality of Alcohol and Drug Abuse Patient Records regulations: The Federal rules restrict any use of the information to criminally investigate or prosecute any alcohol or drug abuse patient.[facility]In the event this information is protected by the Federal Confidentiality of Alcohol and Drug Abuse Patient Records regulations: The Federal rules restrict any use of the information to criminally investigate or prosecute any alcohol or drug abuse patient.[facility]In the event this information is protected by the Federal Confidentiality of Alcohol and Drug Abuse Patient Records regulations: The Federal rules restrict any use of the information to criminally investigate or prosecute any alcohol or drug abuse patient.[facility]In the event this information is protected by the Federal Confidentiality of Alcohol and Drug Abuse Patient Records regulations: The Federal rules restrict any use of the information to criminally investigate or prosecute any alcohol or drug abuse patient.[facility]In the event this information is protected by the Federal Confidentiality of Alcohol and Drug Abuse Patient Records regulations: The Federal rules restrict any use of the information to criminally investigate or prosecute any alcohol or drug abuse patient.[facility]In the event this information is protected by the Federal Confidentiality of Alcohol and Drug Abuse Patient Records regulations: The Federal rules restrict any use of the information to criminally investigate or prosecute any alcohol or drug abuse patient.[facility]In the event this information is protected by the Federal Confidentiality of Alcohol and Drug Abuse Patient Records regulations: The Federal rules restrict any use of the information to criminally investigate or prosecute any alcohol or drug abuse patient.[facility]In the event this information is protected by the Federal Confidentiality of Alcohol and Drug Abuse Patient Records regulations: The Federal rules restrict any use of the information to criminally investigate or prosecute any alcohol or drug abuse patient.[facility]In the event this information is protected by the Federal Confidentiality of Alcohol and Drug Abuse Patient Records regulations: The Federal rules restrict any use of the information to criminally investigate or prosecute any alcohol or drug abuse patient.[facility]In the event this information is protected by the Federal Confidentiality of Alcohol and Drug Abuse Patient Records regulations: The Federal rules restrict any use of the information to criminally investigate or prosecute any alcohol or drug abuse patient.[facility]In the event this information is protected by the Federal Confidentiality of Alcohol and Drug Abuse Patient Records regulations: The Federal rules restrict any use of the information to criminally investigate or prosecute any alcohol or drug abuse patient.[facility]In the event this information is protected by the Federal Confidentiality of Alcohol and Drug Abuse Patient Records regulations: The Federal rules restrict any use of the information to criminally investigate or prosecute any alcohol or drug abuse patient.[facility]In the event this information is protected by the Federal Confidentiality of Alcohol and Drug Abuse Patient Records regulations: The Federal rules restrict any use of the information to criminally investigate or prosecute any alcohol or drug abuse patient.[facility]In the event this information is protected by the Federal Confidentiality of Alcohol and Drug Abuse Patient Records regulations: The Federal rules restrict any use of the information to criminally investigate or prosecute any alcohol or drug abuse patient.[facility]In the event this information is protected by the Federal Confidentiality of Alcohol and Drug Abuse Patient Records regulations: The Federal rules restrict any use of the information to criminally investigate or prosecute any alcohol or drug abuse patient.[facility]In the event this information is protected by the Federal Confidentiality of Alcohol and Drug Abuse Patient Records regulations: The Federal rules restrict any use of the information to criminally investigate or prosecute any alcohol or drug abuse patient.[facility]In the event this information is protected by the Federal Confidentiality of Alcohol and Drug Abuse Patient Records regulations: The Federal rules restrict any use of the information to criminally investigate or prosecute any alcohol or drug abuse patient.[facility]In the event this information is protected by the Federal Confidentiality of Alcohol and Drug Abuse Patient Records regulations: The Federal rules restrict any use of the information to criminally investigate or prosecute any alcohol or drug abuse patient.[facility] HospitalIn the event this information is protected by the Federal Confidentiality of Alcohol and Drug Abuse Patient Records regulations: The Federal rules restrict any use of the information to criminally investigate or prosecute any alcohol or drug abuse patient.[facility] HospitalIn the event this information is protected by the Federal Confidentiality of Alcohol and Drug Abuse Patient Records regulations: The Federal rules restrict any use of the information to criminally investigate or prosecute any alcohol or drug abuse patient.[facility]In the event this information is protected by the Federal Confidentiality of Alcohol and Drug Abuse Patient Records regulations: The Federal rules restrict any use of the information to criminally investigate or prosecute any alcohol or drug abuse patient.[facility] HospitalIn the event this information is protected by the Federal Confidentiality of Alcohol and Drug Abuse Patient Records regulations: The Federal rules restrict any use of the information to criminally investigate or prosecute any alcohol or drug abuse patient.[facility] HospitalIn the event this information is protected by the Federal Confidentiality of Alcohol and Drug Abuse Patient Records regulations: The Federal rules restrict any use of the information to criminally investigate or prosecute any alcohol or drug abuse patient.[facility] HospitalIn the event this information is protected by the Federal Confidentiality of Alcohol and Drug Abuse Patient Records regulations: The Federal rules restrict any use of the information to criminally investigate or prosecute any alcohol or drug abuse patient.[facility] HospitalIn the event this information is protected by the Federal Confidentiality of Alcohol and Drug Abuse Patient Records regulations: The Federal rules restrict any use of the information to criminally investigate or prosecute any alcohol or drug abuse patient.[facility]In the event this information is protected by the Federal Confidentiality of Alcohol and Drug Abuse Patient Records regulations: The Federal rules restrict any use of the information to criminally investigate or prosecute any alcohol or drug abuse patient.[facility]In the event this information is protected by the Federal Confidentiality of Alcohol and Drug Abuse Patient Records regulations: The Federal rules restrict any use of the information to criminally investigate or prosecute any alcohol or drug abuse patient.[facility]In the event this information is protected by the Federal Confidentiality of Alcohol and Drug Abuse Patient Records regulations: The Federal rules restrict any use of the information to criminally investigate or prosecute any alcohol or drug abuse patient.[facility]In the event this information is protected by the Federal Confidentiality of Alcohol and Drug Abuse Patient Records regulations: The Federal rules restrict any use of the information to criminally investigate or prosecute any alcohol or drug abuse patient.[facility]In the event this information is protected by the Federal Confidentiality of Alcohol and Drug Abuse Patient Records regulations: The Federal rules restrict any use of the information to criminally investigate or prosecute any alcohol or drug abuse patient.[facility]In the event this information is protected by the Federal Confidentiality of Alcohol and Drug Abuse Patient Records regulations: The Federal rules restrict any use of the information to criminally investigate or prosecute any alcohol or drug abuse patient.[facility] HospitalIn the event this information is protected by the Federal Confidentiality of Alcohol and Drug Abuse Patient Records regulations: The Federal rules restrict any use of the information to criminally investigate or prosecute any alcohol or drug abuse patient.[facility]In the event this information is protected by the Federal Confidentiality of Alcohol and Drug Abuse Patient Records regulations: The Federal rules restrict any use of the information to criminally investigate or prosecute any alcohol or drug abuse patient.[facility] HospitalIn the event this information is protected by the Federal Confidentiality of Alcohol and Drug Abuse Patient Records regulations: The Federal rules restrict any use of the information to criminally investigate or prosecute any alcohol or drug abuse patient.[facility] HospitalIn the event this information is protected by the Federal Confidentiality of Alcohol and Drug Abuse Patient Records regulations: The Federal rules restrict any use of the information to criminally investigate or prosecute any alcohol or drug abuse patient.[facility] HospitalIn the event this information is protected by the Federal Confidentiality of Alcohol and Drug Abuse Patient Records regulations: The Federal rules restrict any use of the information to criminally investigate or prosecute any alcohol or drug abuse patient.[facility] HospitalIn the event this information is protected by the Federal Confidentiality of Alcohol and Drug Abuse Patient Records regulations: The Federal rules restrict any use of the information to criminally investigate or prosecute any alcohol or drug abuse patient.[facility] HospitalIn the event this information is protected by the Federal Confidentiality of Alcohol and Drug Abuse Patient Records regulations: The Federal rules restrict any use of the information to criminally investigate or prosecute any alcohol or drug abuse patient.[facility] HospitalIn the event this information is protected by the Federal Confidentiality of Alcohol and Drug Abuse Patient Records regulations: The Federal rules restrict any use of the information to criminally investigate or prosecute any alcohol or drug abuse patient.[facility] HospitalIn the event this information is protected by the Federal Confidentiality of Alcohol and Drug Abuse Patient Records regulations: The Federal rules restrict any use of the information to criminally investigate or prosecute any alcohol or drug abuse patient.[facility] HospitalIn the event this information is protected by the Federal Confidentiality of Alcohol and Drug Abuse Patient Records regulations: The Federal rules restrict any use of the information to criminally investigate or prosecute any alcohol or drug abuse patient.[facility] HospitalIn the event this information is protected by the Federal Confidentiality of Alcohol and Drug Abuse Patient Records regulations: The Federal rules restrict any use of the information to criminally investigate or prosecute any alcohol or drug abuse patient.[facility] HospitalIn the event this information is protected by the Federal Confidentiality of Alcohol and Drug Abuse Patient Records regulations: The Federal rules restrict any use of the information to criminally investigate or prosecute any alcohol or drug abuse patient.[facility] HospitalIn the event this information is protected by the Federal Confidentiality of Alcohol and Drug Abuse Patient Records regulations: The Federal rules restrict any use of the information to criminally investigate or prosecute any alcohol or drug abuse patient.[facility] HospitalIn the event this information is protected by the Federal Confidentiality of Alcohol and Drug Abuse Patient Records regulations: The Federal rules restrict any use of the information to criminally investigate or prosecute any alcohol or drug abuse patient.[facility] HospitalIn the event this information is protected by the Federal Confidentiality of Alcohol and Drug Abuse Patient Records regulations: The Federal rules restrict any use of the information to criminally investigate or prosecute any alcohol or drug abuse patient.[facility] HospitalIn the event this information is protected by the Federal Confidentiality of Alcohol and Drug Abuse Patient Records regulations: The Federal rules restrict any use of the information to criminally investigate or prosecute any alcohol or drug abuse patient.[facility] HospitalIn the event this information is protected by the Federal Confidentiality of Alcohol and Drug Abuse Patient Records regulations: The Federal rules restrict any use of the information to criminally investigate or prosecute any alcohol or drug abuse patient.[facility] HospitalIn the event this information is protected by the Federal Confidentiality of Alcohol and Drug Abuse Patient Records regulations: The Federal rules restrict any use of the information to criminally investigate or prosecute any alcohol or drug abuse patient.[facility] HospitalIn the event this information is protected by the Federal Confidentiality of Alcohol and Drug Abuse Patient Records regulations: The Federal rules restrict any use of the information to criminally investigate or prosecute any alcohol or drug abuse patient.[facility] HospitalIn the event this information is protected by the Federal Confidentiality of Alcohol and Drug Abuse Patient Records regulations: The Federal rules restrict any use of the information to criminally investigate or prosecute any alcohol or drug abuse patient.[facility] HospitalIn the event this information is protected by the Federal Confidentiality of Alcohol and Drug Abuse Patient Records regulations: The Federal rules restrict any use of the information to criminally investigate or prosecute any alcohol or drug abuse patient.[facility] HospitalIn the event this information is protected by the Federal Confidentiality of Alcohol and Drug Abuse Patient Records regulations: The Federal rules restrict any use of the information to criminally investigate or prosecute any alcohol or drug abuse patient.[facility] HospitalIn the event this information is protected by the Federal Confidentiality of Alcohol and Drug Abuse Patient Records regulations: The Federal rules restrict any use of the information to criminally investigate or prosecute any alcohol or drug abuse patient.[facility] HospitalIn the event this information is protected by the Federal Confidentiality of Alcohol and Drug Abuse Patient Records regulations: The Federal rules restrict any use of the information to criminally investigate or prosecute any alcohol or drug abuse patient.[facility] HospitalIn the event this information is protected by the Federal Confidentiality of Alcohol and Drug Abuse Patient Records regulations: The Federal rules restrict any use of the information to criminally investigate or prosecute any alcohol or drug abuse patient.[facility] HospitalIn the event this information is protected by the Federal Confidentiality of Alcohol and Drug Abuse Patient Records regulations: The Federal rules restrict any use of the information to criminally investigate or prosecute any alcohol or drug abuse patient.[facility] HospitalIn the event this information is protected by the Federal Confidentiality of Alcohol and Drug Abuse Patient Records regulations: The Federal rules restrict any use of the information to criminally investigate or prosecute any alcohol or drug abuse patient.[facility] HospitalIn the event this information is protected by the Federal Confidentiality of Alcohol and Drug Abuse Patient Records regulations: The Federal rules restrict any use of the information to criminally investigate or prosecute any alcohol or drug abuse patient.[facility] HospitalIn the event this information is protected by the Federal Confidentiality of Alcohol and Drug Abuse Patient Records regulations: The Federal rules restrict any use of the information to criminally investigate or prosecute any alcohol or drug abuse patient.[facility] HospitalIn the event this information is protected by the Federal Confidentiality of Alcohol and Drug Abuse Patient Records regulations: The Federal rules restrict any use of the information to criminally investigate or prosecute any alcohol or drug abuse patient.[facility] HospitalIn the event this information is protected by the Federal Confidentiality of Alcohol and Drug Abuse Patient Records regulations: The Federal rules restrict any use of the information to criminally investigate or prosecute any alcohol or drug abuse patient.[facility] HospitalIn the event this information is protected by the Federal Confidentiality of Alcohol and Drug Abuse Patient Records regulations: The Federal rules restrict any use of the information to criminally investigate or prosecute any alcohol or drug abuse patient.[facility] HospitalIn the event this information is protected by the Federal Confidentiality of Alcohol and Drug Abuse Patient Records regulations: The Federal rules restrict any use of the information to criminally investigate or prosecute any alcohol or drug abuse patient.[facility] HospitalIn the event this information is protected by the Federal Confidentiality of Alcohol and Drug Abuse Patient Records regulations: The Federal rules restrict any use of the information to criminally investigate or prosecute any alcohol or drug abuse patient.[facility] HospitalIn the event this information is protected by the Federal Confidentiality of Alcohol and Drug Abuse Patient Records regulations: The Federal rules restrict any use of the information to criminally investigate or prosecute any alcohol or drug abuse patient.[facility] HospitalIn the event this information is protected by the Federal Confidentiality of Alcohol and Drug Abuse Patient Records regulations: The Federal rules restrict any use of the information to criminally investigate or prosecute any alcohol or drug abuse patient.[facility] HospitalIn the event this information is protected by the Federal Confidentiality of Alcohol and Drug Abuse Patient Records regulations: The Federal rules restrict any use of the information to criminally investigate or prosecute any alcohol or drug abuse patient.[facility] HospitalIn the event this information is protected by the Federal Confidentiality of Alcohol and Drug Abuse Patient Records regulations: The Federal rules restrict any use of the information to criminally investigate or prosecute any alcohol or drug abuse patient.[facility] HospitalIn the event this information is protected by the Federal Confidentiality of Alcohol and Drug Abuse Patient Records regulations: The Federal rules restrict any use of the information to criminally investigate or prosecute any alcohol or drug abuse patient.[facility] HospitalIn the event this information is protected by the Federal Confidentiality of Alcohol and Drug Abuse Patient Records regulations: The Federal rules restrict any use of the information to criminally investigate or prosecute any alcohol or drug abuse patient.[facility] HospitalIn the event this information is protected by the Federal Confidentiality of Alcohol and Drug Abuse Patient Records regulations: The Federal rules restrict any use of the information to criminally investigate or prosecute any alcohol or drug abuse patient.[facility] HospitalIn the event this information is protected by the Federal Confidentiality of Alcohol and Drug Abuse Patient Records regulations: The Federal rules restrict any use of the information to criminally investigate or prosecute any alcohol or drug abuse patient.[facility] HospitalIn the event this information is protected by the Federal Confidentiality of Alcohol and Drug Abuse Patient Records regulations: The Federal rules restrict any use of the information to criminally investigate or prosecute any alcohol or drug abuse patient.[facility] HospitalIn the event this information is protected by the Federal Confidentiality of Alcohol and Drug Abuse Patient Records regulations: The Federal rules restrict any use of the information to criminally investigate or prosecute any alcohol or drug abuse patient.[facility] HospitalIn the event this information is protected by the Federal Confidentiality of Alcohol and Drug Abuse Patient Records regulations: The Federal rules restrict any use of the information to criminally investigate or prosecute any alcohol or drug abuse patient.[facility] HospitalIn the event this information is protected by the Federal Confidentiality of Alcohol and Drug Abuse Patient Records regulations: The Federal rules restrict any use of the information to criminally investigate or prosecute any alcohol or drug abuse patient.[facility] Reason for Visit (unrecogniz ed section and content) Reason Comments PT Progress Note Specialty Diagnoses / Procedures Referred By Contac t Referred To Contact [facility] Diagnoses Neck pain Chronic bilateral low back pain without sciatica Procedures CONSULT TO PHYSICAL THERAPY PHYSICAL THERAPY EVALUATION HIGH COMPLEX 45 MINS Odalys Brock, WEIGHT SHIFTER.METAL PICKLING EQUIPMENT OPERATOR [address] [place] [address] [facility] [address] [place] [address] Referral ID Status Reason Start Date Expiration Date V isits Requested Visits Authorized [id number] Authorized 10/26/2021 10/25/2022 99 99 Reason Comments Established Sleep 3 month follow up Specialty Diagnoses / Procedures Referred By Contac t Referred To Contact Neurology / SLEEP DISORDERS Diagnoses 3 month follow up Procedures EST SLEEP ADULT Self Ranjeet Shields Jr., MD [address] [address] Referral ID Status Reason Start Date Expiration Date V isits Requested Visits Authorized [id number] Closed Patient Cleared INN/[facility] Payor Auth Obtained 01/20/2022 10/25/2022 1 1 Reason Comments Printed Rx's needed Reason Onset Date Comments Refill Request 02/25/2022 Reason Onset Date Comments Refill Request 03/03/2022 Reason Comments Back Pain left shoulder Specialty Diagnoses / Procedures Referred By Contac t Referred To Contact Family Practice / FAMILY MEDICINE Diagnoses Spasam in back and shoulder Procedures 4C EST Self Odalys Brock APRN.METAL PICKLING EQUIPMENT OPERATOR [address] [place] [address] Referral ID Status Reason Start Date Expiration Date Visits Re quested Visits Authorized [id number] Closed 03/25/2022 10/25/2022 1 1 Reason Comments PT Eval Reason Onset Date Comments Refill Request 04/18/2022 Reason Comments F/U 6 months Specialty Diagnoses / Procedures Referred By Contac t Referred To Contact Family Practice / FAMILY MEDICINE Diagnoses 6 month follow up Procedures 4C EST Ranjeet Goodwin MD [address] [place] [address] Ranjeet Goodwin MD [address] [place] [address] Referral ID Status Reason Start Date Expiration Date Visits Re quested Visits Authorized [id number] Closed 05/05/2022 10/25/2022 1 1 Reason Onset Date Comments Refill Request 06/13/2022 Reason Onset Date Comments Refill Request 07/04/2022 Reason Comments Pain (Shoulder Pain) L shoulder pain; fi nished PT Reason Onset Date Comments Refill Request 07/11/2022 Reason Comments right index finger pain Caught it car do or this am Reason Onset Date Comments Refill Request 08/08/2022 Reason Comments Recheck Follow up L shoulder pain, reinjured shoulder Reason Onset Date Comments Population Health Navigation Outreach 09/03/2022 [facility] Reason Onset Date Comments Refill Request 09/05/2022 Reason Onset Date Comments Refill Request 10/02/2022 Reason Onset Date Comments Refill Request 10/08/2022 Reason Comments Acute Visit Skin infection on R hand x2 weeks, requesting refill of atb ointment rx'd by Dr. Goodwin Reason Onset Date Comments Refill Request 10/30/2022 Reason Comments 6 Month Exam Reason Onset Date Comments Refill Request 11/27/2022 Reason Comments Follow Up Reason Onset Date Comments Refill Request 01/29/2023 Reason Onset Date Comments Refill Request 02/20/2023 Reason Comments Forms Reason Onset Date Comments Refill Request 04/16/2023 Reason Onset Date Comments Refill Request 04/17/2023 Reason Onset Date Comments Refill Request 04/20/2023 Reason Comments 6 Month Exam Reason Comments Results Reason Onset Date Comments Refill Request 06/15/2023 Reason Onset Date Comments Refill Request 06/19/2023 Reason Onset Date Comments Refill Request 07/10/2023 Reason Onset Date Comments Refill Request 09/09/2023 Reason Comments 6 Month Exam Reason Onset Date Comments Refill Request 12/23/2023 Reason Onset Date Comments Population [facility] Navigation Outreach 01/15/2024 [employer] [facility] gaps Reason Onset Date Comments Refill Request 01/29/2024 Reason Comments left shoulder pain Fell this am Reason Onset Date Comments Refill Request 02/18/2024 Reason Comments New Patient Evaluation Specialty Diagnoses / Procedures Referred By Contac t Referred To Contact Diagnoses HIMANSHU (obstructive sleep apnea) Procedures CONSULT TO SLEEP MEDICINE - ADULT OFFICE/OUTPATIENT [facility] 60 MINUTES Ranjeet Goodwin MD [address] [place] [address] Referral ID Status Reason Start Date Expiration Date V isits Requested Visits Authorized [id number] Closed PCP Requested Referral 12/07/2023 12/06/2024 1 1 Reason Comments Hypertension Follow up Reason Comments Pre-Op Exam L shoulder surgery Shantal Ta, Dr Rafa Echeverria; PAT completed today at [facility] Reason Onset Date Comments Refill Request 04/14/2024 Reason Onset Date Comments Refill Request 05/17/2024 Reason Onset Date Comments Refill Request 05/19/2024 Reason Comments Refill Request Reason Onset Date Comments Refill Request 06/17/2024 Reason Onset Date Comments Refill Request 07/07/2024 Reason Onset Date Comments Refill Request 08/09/2024 Reason Onset Date Comments Population Health Navigation Outreach 09/20/2024 [facility] WORKBENCRissa MURGUIA PCSA Reason Onset Date Comments Refill Request 10/06/2024 Reason Comments Eye Problem Bilat eyes, watery, red irritation, swelling, burning x 2 daysR eye is worse Reason Comments Cough Cough and dizzy x 4 days Reason Onset Date Comments Refill Request 12/01/2024 Reason Onset Date Comments Refill Request 12/22/2024 Reason Comments Urinary Frequency low back pain x 1 da y Reason Comments Results Reason Comments Radiology US Specialty Diagnoses / Procedures Referred By Horace hernandez Referred To Contact [facility] Diagnoses Stage 3a chronic kidney disease (HCC) Procedures US KIDNEY/BLADDER US RETROPERITONEAL REAL TIME W/IMAGE COMPLETE Ranjeet Goodwin MD [address] [place] [address] Phone: tel: fax: [place] [phone] Referral ID Status Reason Start Date Expiration Date V isits Requested Visits Authorized [id number] Closed Auto-Generate d Referral 01/17/2025 02/16/2026 1 1 Reason Onset Date Comments Refill Request 01/25/2025 Reason Onset Date Comments Refill Request 03/02/2025 Reason Onset Date Comments Refill Request 04/13/2025 Reason Comments Back Pain Lower middle back pa in, states she woke up yesterday and had the pain, and is aching and increases with certain movements x 2 days Reason Onset Date Comments Refill Request 05/16/2025 Reason Onset Date Comments Refill Request 06/09/2025 Reason Onset Date Comments Refill Request 07/11/2025 Care Teams (unrecognized sec tion and content) [employer] Program[employer] Relationship Specialty Start Date End Date Ranjeet Goodwin MD [address] [place], [place] [id number] PCP - General Family Practice 08/17/18 Chucky Goldberg RPh [address] [place] [address] Pharmacist Pharmacy 02/23/20 [employer] Programmer Relationship Specialty Start Date End Date Ranjeet Goodwin MD [address] [place] [address] PCP - General Family Practice 08/17/18 Chucky Goldberg, [facility] [address] [place] [address] Pharmacist Pharmacy 02/23/20 [employer] Programmer Relationship Specialty Start Date End Date Ranjeet Goodwin MD [address] [place] [address] PCP - General Family Practice 08/17/18 Chucky Goldberg, [facility] [address] [place] [address] Pharmacist Pharmacy 02/23/20 [employer] Program[employer] Relationship Specialty Start Date End Date Ranjeet Goodwin MD [address] [place] [address] PCP - General Family Practice 08/17/18 [facility] [address] [place] [address] Pharmacist Pharmacy 02/23/20 [employer] Programmer Relationship Specialty Start Date End Date Ranjeet Goodwin MD [address] [place] [address] PCP - General Family Practice 08/17/18 Chucky Goldberg, [facility] [address] [place] [address] Pharmacist Pharmacy 02/23/20 [employer] Programmer Relationship Specialty Start Date End Date Ranjeet Goodwin MD [address] [place] [address] PCP - General Family Practice 08/17/18 Chucky Goldberg, [facility] [address] [place] [address] Pharmacist Pharmacy 02/23/20 [employer] Programmer Relationship Specialty Start Date End Date Ranjeet Goodwin MD [address] [place] [address] PCP - General Family Practice 08/17/18 [facility] [address] [place] [address] Pharmacist Pharmacy 02/23/20 [employer] Program[employer] Relationship Specialty Start Date End Date Ranjeet Goodwin MD [address] [place] [address] PCP - General Family Practice 08/17/18 [facility] [address] [place] [address] Pharmacist Pharmacy 02/23/20 [employer] Programmer Relationship Specialty Start Date End Date Ranjeet Goodwin MD [address] [place] [address] PCP - General Family Practice 08/17/18 [facility] [address] [place] [address] Pharmacist Pharmacy 02/23/20 [employer] Programmer Relationship Specialty Start Date End Date Ranjeet Goodwin MD [address] [place] [address] PCP - General Family Practice 08/17/18 [facility] [address] [place] [address] Pharmacist Pharmacy 02/23/20 [employer] Programmer Relationship Specialty Start Date End Date Ranjeet Goodwin MD [address] [place] [address] PCP - General Family Practice 08/17/18 [facility] [address] [place] [address] Pharmacist Pharmacy 02/23/20 [employer] Programmer Relationship Specialty Start Date End Date Ranjeet Goodwin MD [address] [place] [address] PCP - General Family Practice 08/17/18 [facility] [address] [place] [address] Pharmacist Pharmacy 02/23/20 [employer] Programmer Relationship Specialty Start Date End Date Ranjeet Goodwin MD [address] [place] [address] PCP - General Family Practice 08/17/18 [facility] [address] [place] [address] Pharmacist Pharmacy 02/23/20 [employer] Programmer Relationship Specialty Start Date End Date Ranjeet Goodwin MD [address] [place] [address] PCP - General Family Medicine 08/17/18 [facility] [address] [place] [address] Pharmacist Pharmacy 02/23/20 [employer] Programmer Relationship Specialty Start Date End Date Ranjeet Goodwin MD [address] [place] [address] PCP - General Family Medicine 08/17/18 [facility] [address] [place] [address] Pharmacist Pharmacy 02/23/20 [employer] Programmer Relationship Specialty Start Date End Date Ranjeet Goodwin MD [address] [place] [address] PCP - General Family Medicine 08/17/18 [facility] [address] [place] [address] Pharmacist Pharmacy 02/23/20 [employer] Programmer Relationship Specialty Start Date End Date Ranjeet Goodwin MD [address] [place] [address] PCP - General Family Medicine 08/17/18 [facility] [address] [place] [address] Pharmacist Pharmacy 02/23/20 [employer] Programmer Relationship Specialty Start Date End Date Ranjeet Goodwin MD [address] [place] [address] PCP - General Family Medicine 08/17/18 [facility] [address] [place] [address] Pharmacist Pharmacy 02/23/20 [employer] Programmer Relationship Specialty Start Date End Date Ranjeet Goodwin MD [address] [place] [address] PCP - General Family Medicine 08/17/18 [facility] [address] [place] [address] Pharmacist Pharmacy 02/23/20 [employer] Programmer Relationship Specialty Start Date End Date Ranjeet Goodwin MD [address] [place] [address] PCP - General Family Medicine 08/17/18 [facility] [address] [facility] [place] [address] Pharmacist Pharmacy 02/23/20 [employer] Programmer Relationship Specialty Start Date End Date Ranjeet Goodwin MD [address] [place] [address] PCP - General Family Medicine 08/17/18 Chucky Goldberg, [facility] [address] [facility] [place] [address] Pharmacist Pharmacy 02/23/20 [employer] Programmer Relationship Specialty Start Date End Date Ranjeet Goodwin MD [address] [place] [address] PCP - General Family Medicine 08/17/18 Chucky Goldberg, [facility] [address] [facility] [address] Pharmacist Pharmacy 02/23/20 [employer] Programmer Relationship Specialty Start Date End Date Ranjeet Goodwin MD [address] [place] [address] PCP - General Family Medicine 08/17/18 Chucky Goldberg, [facility] [address] [place] [address] Pharmacist Pharmacy 02/23/20 Team Status: Active Member Role Status Dates Dr. Ranjeet Goodwin MD Family Provider Active Dr. Ranjeet Goodwin MD Primary Care Provider Active Team Status: Inactive Member Role Status Dates Dr. Ranjeet Goodwin MD Primary Care Provider Active Dr. Carlos Vargas DO Emergency Provider Active [employer] Programmer Relationship Specialty Start Date End Date Ranjeet Goodwin MD [address] [place] [address] PCP - General Family Medicine 08/17/18 Chucky Goldberg, [facility] [address] [facility] [address] Pharmacist Pharmacy 02/23/20 [employer] Programmer Relationship Specialty Start Date End Date Ranjeet Goodwin MD [address] [place] [address] PCP - General Family Medicine 08/17/18 Chucky Goldberg, [facility] [address] [place] [address] Pharmacist Pharmacy 02/23/20 [employer] Programmer Relationship Specialty Start Date End Date Ranjeet Goodwin MD [address] [facility] [place] [address] PCP - General Family Medicine 08/17/18 [facility] [address] [facility] [place] [address] Pharmacist Pharmacy 02/23/20 [employer] Programmer Relationship Specialty Start Date End Date Ranjeet Goodwin MD [address] [facility] [place] [address] PCP - General Family Medicine 08/17/18 [facility] [address] [facility] [place] [address] Pharmacist Pharmacy 02/23/20 [employer] Programmer Relationship Specialty Start Date End Date Ranjeet Goodwin MD [address] [facility] [place] [address] PCP - General Family Medicine 08/17/18 [facility] [address] [place] [address] Pharmacist Pharmacy 02/23/20 [employer] Programmer Relationship Specialty Start Date End Date Ranjeet Goodwin MD [address] [facility] [address] PCP - General Family Medicine 08/17/18 Chucky Goldberg, [facility] [address] [facility] [address] Pharmacist Pharmacy 02/23/20 [employer] Programmer Relationship Specialty Start Date End Date Ranjeet Goodwin MD [address] [facility] [address] PCP - General Family Medicine 08/17/18 [facility] [address] [facility] [place] [address] Pharmacist Pharmacy 02/23/20 [employer] Programmer Relationship Specialty Start Date End Date Ranjeet Goodwin MD [address] [facility] [place] [address] PCP - General Family Medicine 08/17/18 [facility] [address] [facility] [place] [address] Pharmacist Pharmacy 02/23/20 [employer] Programmer Relationship Specialty Start Date End Date Ranjeet Goodwin MD [address] [facility] [place] [address] PCP - General Family Medicine 08/17/18 [facility] [address] [facility] [place] [address] Pharmacist Pharmacy 02/23/20 [employer] Programmer Relationship Specialty Start Date End Date Ranjeet Goodwin MD [address] [facility] [place] [address] PCP - General Family Medicine 08/17/18 [facility] [address] [facility] [place] [address] Pharmacist Pharmacy 02/23/20 [employer] Programmer Relationship Specialty Start Date End Date Ranjeet Goodwin MD [address] [facility] [address] PCP - General Family Medicine 08/17/18 [employer] Programmer Relationship Specialty Start Date End Date Ranjeet Goowdin MD [address] [facility] [place] [address] PCP - General Family Medicine 08/17/18 [employer] Programmer Relationship Specialty Start Date End Date Ranjeet Goodwin MD [address] [place] [address] PCP - General Family Medicine 08/17/18 [employer] Programmer Relationship Specialty Start Date End Date Ranjeet Goodwin MD [address] [place] [address] PCP - General Family Medicine 08/17/18 [employer] Programmer Relationship Specialty Start Date End Date Ranjeet Goodwin MD [address] [place] [address] PCP - General Family Medicine 08/17/18 [employer] Programmer Relationship Specialty Start Date End Date Ranjeet Goodwin MD [address] [place] [address] PCP - General Family Medicine 08/17/18 [employer] Programmer Relationship Specialty Start Date End Date Ranjeet Goodwin MD [address] [place] [address] PCP - General Family Medicine 08/17/18 [employer] Programmer Relationship Specialty Start Date End Date Ranjeet Goodwin MD [address] [place] [address] PCP - General Family Medicine 08/17/18 [employer] Programmer Relationship Specialty Start Date End Date Ranjeet Goodwin MD [address] [place] [address] PCP - General Family Medicine 08/17/18 [employer] Programmer Relationship Specialty Start Date End Date Ranjeet Goodwin MD [address] [place] [address] PCP - General Family Medicine 08/17/18 [employer] Programmer Relationship Specialty Start Date End Date Ranjeet Goodwin MD [address] [place] [address] PCP - General Family Medicine 08/17/18 [employer] Programmer Relationship Specialty Start Date End Date Ranjeet Goodwin MD [address] [place] [address] PCP - General Family Medicine 08/17/18 [employer] Programmer Relationship Specialty Start Date End Date Ranjeet Goodwin MD [address] [place] [address] PCP - General Family Medicine 08/17/18 [employer] Programmer Relationship Specialty Start Date End Date Ranjeet Goodwin MD [address] [place] [address] PCP - General Family Medicine 08/17/18 [employer] Programmer Relationship Specialty Start Date End Date Ranjeet Goodwin MD [address] [place] [address] PCP - General Family Medicine 08/17/18 [employer] Programmer Relationship Specialty Start Date End Date Ranjeet Goodwin MD [address] [place] [address] PCP - General Family Medicine 08/17/18 [employer] Programmer Relationship Specialty Start Date End Date Ranjeet Goodwin MD [address] [place] [address] PCP - General Family Medicine 08/17/18 [employer] Programmer Relationship Specialty Start Date End Date Ranjeet Goodwin MD [address] [facility] [place] [address] PCP - General Family Medicine 08/17/18 [employer] Programmer Relationship Specialty Start Date End Date Ranjeet Goodwin MD [address] [place] [address] PCP - General Family Medicine 08/17/18 [employer] Programmer Relationship Specialty Start Date End Date Ranjeet Goodwin MD [address] [facility] [address] PCP - General Family Medicine 08/17/18 [employer] Programmer Relationship Specialty Start Date End Date Ranjeet Goodwin MD [address] [facility] [address] PCP - General Family Medicine 08/17/18 Chucky Goldberg [facility] [address] [place] [address] Pharmacist Pharmacy 02/23/20 11/24/23 [employer] Programmer Relationship Specialty Start Date End Date Ranjeet Goodwin MD [address] [facility] [place] [address] PCP - General Family Medicine 08/17/18 Odalys Brock, SUE.METAL PICKLING EQUIPMENT OPERATOR [address] [facility] [place] [address] Meat Puller Family Medicine 10/03/24 Adelaide Donovan APRN.METAL PICKLING EQUIPMENT OPERATOR [address] [facility] [place] [address] Meat Puller Family Medicine 10/03/24 [employer] Programmer Relationship Specialty Start Date End Date Ranjeet Goodwin MD [address] [place] [address] PCP - General Family Medicine 08/17/18 Odalys Brock APRN.METAL PICKLING EQUIPMENT OPERATOR [address] [place] [address] Meat Puller Family Medicine 10/03/24 Adelaide Donovan APRN.METAL PICKLING EQUIPMENT OPERATOR [address] [place] [address] Meat Puller Family Medicine 10/03/24 [employer] Programmer Relationship Specialty Start Date End Date Ranjeet Goodwin MD [address] [place] [address] PCP - General Family Medicine 08/17/18 Odalys Brock APRN.METAL PICKLING EQUIPMENT OPERATOR [address] [place] [address] Meat Puller Family Medicine 10/03/24 Adelaide Donovan APRN.METAL PICKLING EQUIPMENT OPERATOR [address] [place] [address] [facility] 10/03/24 [employer] Programmer Relationship Specialty Start Date End Date Ranjeet Goodwin MD [address] [place] [address] PCP - General Family Medicine 08/17/18 Odalys Brock APRN.METAL PICKLING EQUIPMENT OPERATOR [address] [place] [address] Meat Puller Family Medicine 10/03/24 Adelaide Donovan APRN.METAL PICKLING EQUIPMENT OPERATOR [address] [place] [address] Meat Puller Family [facility] 10/03/24 [employer] Programmer Relationship Specialty Start Date End Date Ranjeet Goodwin MD [address] [facility] [address] PCP - General Family Medicine 08/17/18 Odalys Brock, WEIGHT SHIFTER.METAL PICKLING EQUIPMENT OPERATOR [address] [facility] [address] Meat Puller Family Medicine 10/03/24 Adelaide Donovan WEIGHT SHIFTER.METAL PICKLING EQUIPMENT OPERATOR [address] [facility] [address] [facility] 10/03/24 [employer] Programmer Relationship Specialty Start Date End Date Ranjeet Goodwin MD [address] [place] [address] PCP - General Family Medicine 08/17/18 Odalys Brock, WEIGHT SHIFTER.METAL PICKLING EQUIPMENT OPERATOR [address] [facility] [place] [address] [facility] 10/03/24 Adelaide Donovan WEIGHT SHIFTER.METAL PICKLING EQUIPMENT OPERATOR [address] [facility] [address] [facility] 10/03/24 [employer] Programmer Relationship Specialty Start Date End Date Ranjeet Goodwin MD [address] [place] [address] PCP - General Family Medicine 08/17/18 Odalys Brock, WEIGHT SHIFTER.METAL PICKLING EQUIPMENT OPERATOR [address] [facility] [place] [address] Meat Puller Family Medicine 10/03/24 Adelaide Donovan APRN.METAL PICKLING EQUIPMENT OPERATOR [address] [facility] [address] [facility] 10/03/24 [employer] Programmer Relationship Specialty Start Date End Date Ranjeet Goodwin MD [address] [facility] [address] PCP - General Family Medicine 08/17/18 Odalys Brock WEIGHT SHIFTER.METAL PICKLING EQUIPMENT OPERATOR [address] [facility] [place] [address] [facility] 10/03/24 Adelaide Donovan WEIGHT SHIFTER.METAL PICKLING EQUIPMENT OPERATOR [address] [place] [address] [facility] 10/03/24 [employer] Programmer Relationship Specialty Start Date End Date Ranjeet Goodwin MD [address] [place] [address] PCP - General Family Medicine 08/17/18 Odalys Brock WEIGHT SHIFTER.METAL PICKLING EQUIPMENT OPERATOR [address] [facility] [place] [address] [facility] 10/03/24 Adelaide Donovan WEIGHT SHIFTER.METAL PICKLING EQUIPMENT OPERATOR [address] [place] [address] [facility] Medicine 10/03/24 [employer] Programmer Relationship Specialty Start Date End Date Ranjeet Goodwin MD [address] [place] [address] PCP - General Family Medicine 08/17/18 Odalys Brock WEIGHT SHIFTER.METAL PICKLING EQUIPMENT OPERATOR [address] [facility] [place] [address] Meat Puller Family Medicine 10/03/24 Adelaide Donovan APRN.METAL PICKLING EQUIPMENT OPERATOR [address] [place] [address] Meat Puller Family Medicine 10/03/24 [employer] Programmer Relationship Specialty Start Date End Date Ranjeet Goodwin MD [address] [place] [address] PCP - General Family Medicine 08/17/18 Odalys Brock APRN.METAL PICKLING EQUIPMENT OPERATOR [address] [place] [address] Meat Puller Family Medicine 10/03/24 Adelaide Donovan APRN.METAL PICKLING EQUIPMENT OPERATOR [address] [place] [address] Meat Puller Family Medicine 10/03/24 [employer] Programmer Relationship Specialty Start Date End Date Ranjeet Goodwin MD [address] [place] [address] PCP - General Family Medicine 08/17/18 Odalys Brock APRN.METAL PICKLING EQUIPMENT OPERATOR [address] [place] [address] Meat Puller Family Medicine 10/03/24 Adelaide Donovan APRN.METAL PICKLING EQUIPMENT OPERATOR [address] [place] [address] Meat Puller Family Medicine 10/03/24 [employer] Programmer Relationship Specialty Start Date End Date Ranjeet Goodwin MD [address] [place] [address] PCP - General Family Medicine 08/17/18 Odalys Brock APRN.METAL PICKLING EQUIPMENT OPERATOR [address] [facility] [place] [address] Meat Puller Family Medicine 10/03/24 Adelaide Donovan APRN.METAL PICKLING EQUIPMENT OPERATOR [address] [facility] [place] [address] Meat Puller Family Medicine 10/03/24 [employer] Programmer Relationship Specialty Start Date End Date Ranjeet Goodwin MD [address] [facility] [place] [address] PCP - General Family Medicine 08/17/18 Odalys Brock APRN.METAL PICKLING EQUIPMENT OPERATOR [address] [facility] [address] Meat Puller Family Medicine 10/03/24 Adelaide Donovan APRN.METAL PICKLING EQUIPMENT OPERATOR [address] [facility] [place] [address] Meat Puller Family Medicine 10/03/24 [employer] Programmer Relationship Specialty Start Date End Date Ranjeet Goodwin MD [address] [facility] [place] [address] PCP - General Family Medicine 08/17/18 Odalys Brock APRN.METAL PICKLING EQUIPMENT OPERATOR [address] [facility] [address] Meat Puller Family Medicine 10/03/24 Adelaide Donovan APRN.METAL PICKLING EQUIPMENT OPERATOR [address] [facility] [place] [address] Meat Puller Family Medicine 10/03/24 [employer] Programmer Relationship Specialty Start Date End Date Ranjeet Goodwin MD [address] [facility] [place] [address] PCP - General Family Medicine 08/17/18 Odalys Brock APRN.METAL PICKLING EQUIPMENT OPERATOR [address] [facility] [address] [facility] 10/03/24 Adelaide Donovan WEIGHT SHIFTER.METAL PICKLING EQUIPMENT OPERATOR [address] [facility] [address] [facility] 10/03/24 [employer] Programmer Relationship Specialty Start Date End Date Ranjeet Goodwin MD [address] [place] [address] PCP - General Family Medicine 08/17/18 Odalys Brock WEIGHT SHIFTER.METAL PICKLING EQUIPMENT OPERATOR [address] [facility] [address] [facility] 10/03/24 Adelaide Donovan WEIGHT SHIFTER.METAL PICKLING EQUIPMENT OPERATOR [address] [facility] [address] [facility] 10/03/24 [employer] Programmer Relationship Specialty Start Date End Date Ranjeet Goodwin MD [address] [place] [address] PCP - General Family Medicine 08/17/18 Odalys Brock APRN.METAL PICKLING EQUIPMENT OPERATOR [address] [facility] [place] [address] [facility] 10/03/24 Adelaide Donovan APRN.METAL PICKLING EQUIPMENT OPERATOR [address] [place] [address] [facility] 10/03/24 [employer] Programmer Relationship Specialty Start Date End Date Ranjeet Goodwin MD [address] [place] [address] PCP - General Family Medicine 08/17/18 Odalys Brock APRN.METAL PICKLING EQUIPMENT OPERATOR [address] [facility] [place] [address] [facility] 10/03/24 Adelaide Donovan APRN.METAL PICKLING EQUIPMENT OPERATOR [address] [place] [address] [facility] 10/03/24 [employer] Programmer Relationship Specialty Start Date End Date Ranjeet Goodwin MD [address] [place] [address] PCP - General Family Medicine 08/17/18 Odalys Brock APRN.METAL PICKLING EQUIPMENT OPERATOR [address] [facility] [place] [address] [facility] 10/03/24 Adelaide Donovan APRN.METAL PICKLING EQUIPMENT OPERATOR [address] [place] [address] [facility] 10/03/24 Goals (unrecognized section and content) Goals may be documented in a n alternate sectionGoals may be documented in an alternate section FOR RECORDS PERTAINING TO PATIENTS WHO ARE OR HAVE BEEN ENROLLED IN A CHEMICAL DEPENDENCY/SUBSTANCEABUSE PROGRAM, SOME INFORMATION MAY BE OMITTED. This clinical summary was aggregated from multiple sources. Caution should be exercised in using it in the provision of clinical care. This summary normalizes information from multiple sources, and as a consequence, information in this document may materially change the coding, format and clinical context of patient data. In addition, data may be omitted in some cases. CLINICAL DECISIONS SHOULD BE BASED ON THE PRIMARY CLINICAL RECORDS. [facility] provides no warranty or guarantee of the accuracy or completeness of information in this document.
[2025-10-07 22:35] VITALS: BP 124/50; PULSE 70; RESP 16; TEMP 36.4; O2SAT 98
== END 2025-10-08 01:34 | disposition home or self-care (01) ==
PROVIDERS: Emergency Provider Emergency Medicine; PCP Family Medicine; Visit Provider Emergency Medicine
DX: S80.01XA Contusion of right knee, initial encounter (principal); E11.9 Type 2 diabetes mellitus without complications; E78.00 Pure hypercholesterolemia, unspecified; S50.312A Abrasion of left elbow, initial encounter; I10 Essential (primary) hypertension; K21.9 Gastro-esophageal reflux disease without esophagitis; W01.0XXA Fall on same level from slipping, tripping and stumbling without subsequent striking against object, initial encounter
CPT/HCPCS: 73564; 82962; 99284